=== PATIENT | male | born 1990 | race Caucasian/White ===

== ENCOUNTER → 2019-01-19 13:58 | Outpatient (CLI) | payer BC, SELFPAY ==
[2014-11-24 10:14] VITALS: BMI 32.9
[2019-01-19 17:44] LABS: ALB/GLOB Ratio 1.1 RATIO (0.9-2.4); AST(SGOT) 34 U/L (15-37); Alanine Aminotransfer ALT/SGPT 102 U/L (16-61); Alkaline Phosphatase 89 U/L (45-117); Anion Gap 8 (5-15); BUN 15 mg/dL (7-18); BUN/Creat Ratio 12.8 RATIO (10-20); Calcium,Total 9.4 mg/dL (8.5-10.1); Chloride 107 mmol/L (98-107); Cholesterol 208 mg/dL (200); Creatinine, Serum 1.17 mg/dL (0.70-1.30); EST Glomerular Filtration Rate 80 mL/min (>60); Est Glom Filt Rate - Afr Amer 97 mL/min (>60); Globulin 3.5 g/dL (2.2-4.2); Glucose 103 mg/dL (74-106); High Density Lipoprotein 44 mg/dL; Protein, Total 7.5 g/dL (6.4-8.2); Sodium Level 142 mmol/L (136-145); Triglycerides 205 mg/dL; Very Low Density Lipoprotein 41 mg/dL (5-40)
[2019-01-19 18:06] LABS: Protein, Urine (Random) 15.3 mg/dL (<11.9); Protein:Creat Ratio 63 mg/g CRE (0-200)
== END ==
PROVIDERS: Visit Provider Internal Medicine Nephrology
DX: Z90.5 Acquired absence of kidney (principal)
CPT/HCPCS: 36415; 80053; 80061; 82570; 84156

== ENCOUNTER → 2019-01-25 08:47 | Outpatient (CLI) | payer BC, SELFPAY ==
[2014-11-24 10:14] VITALS: BMI 32.9
--- NOTE | 2019-01-25 08:54 | US_ITS ---
STUDY: RENAL ULTRASOUND - COMPLETE REASON FOR EXAM: Male, 28 years old. Absent left kidney TECHNIQUE: Ultrasound evaluation of the kidneys was performed with real-time and static gamez-scale imaging. COMPARISON: None. FINDINGS: RIGHT KIDNEY: Normal location of the right kidney, which is normal in size. The right kidney measures 13.3 x 7.1 x 6.4 cm. There is a normal cortex of the right kidney. The renal cortex measures 2.2 cm. There is no right renal mass or cyst. There are no right renal calculi. There is no right hydronephrosis. DISTAL RIGHT URETER: There is non-visualization of the distal right ureter. There is no demonstrated right ureterovesical junction calculus. There is no demonstrated right ureteral jet. LEFT KIDNEY: No left kidney was identified. DISTAL LEFT URETER: There is non-visualization of the distal left ureter. There is no demonstrated left ureterovesical junction calculus. BLADDER: The distended urinary bladder has a volume of 19.5 ml. The empty urinary bladder has a volume of 0 ml. There is a normal wall thickness of the distended urinary bladder. There is no demonstrated mass within the urinary bladder. There are no demonstrated bladder calculi. US/Kidney and Bladder IMPRESSION: The right kidney appears within normal limits. No left kidney was identified. Electronically Signed: William Martinez MD at 17:02 EDT , Service support ,
== END ==
LOC: US 08:52
PROVIDERS: Referring Provider Internal Medicine Nephrology; Visit Provider Internal Medicine Nephrology
DX: Z90.5 Acquired absence of kidney (principal)
CPT/HCPCS: 76770

== ENCOUNTER 2019-07-14 18:39 | Emergency (ER) | payer OTHER, BC, SELFPAY ==
[2019-07-14 18:40] VITALS: BP 148/95; PULSE 122; RESP 17; TEMP 36.7; O2SAT 98; BMI 32.5
--- NOTE | 2019-07-14 18:42 | RAD_ITS ---
STUDY: X-RAY - RIGHT HAND REASON FOR EXAM: Male, 28 years old. Smashed Rt hand in equipment. 3-5 metacarpal pain and swelling. TECHNIQUE: 3 view(s) of the hand. COMPARISON: None. FINDINGS: No acute fracture, dislocation or osseous destruction. No significant joint space narrowing. No significant productive changes. No significant soft tissue swelling. Punctate hyperdensities under the nail of the fourth digit may represent foreign bodies. IMPRESSION: No acute fracture or dislocation. Electronically Signed: Trevon Smyth, at 19:47 EST Tel , Service support , RAD/Hand Min 3 Views
--- NOTE | 2019-07-14 20:14 | ED.DCSUM_ITS ---
- ER Visit Summary Date of Service: 07/14/19 Chief Complaint: Right hand injury History of Present Illness: The patient is a 28 M who presents with a right hand injury that occurred today. Patient states he was using a wrench to loosen a bolt when the wrench slipped and he hit his hand on a piece of metal behind him. Patient states the pain is dull. Patient states the swelling was over the dorsal aspect of his right hand and was worse initially. Patient admits to some tingling in the right fifth finger. Patient denies any weakness. Patient denies any other injuries. Physical Examination: Vital signs are stable except for mild tachycardia of 122. Patient is afebrile. Patient is in no acute distress. Oral mucosa is pink and moist. Neck is supple. Trachea is midline. There is no JVD. Musculoskeletal exam reveals tenderness, edema, and mild ecchymosis over the dorsal aspect of the right hand at the base of the fourth and fifth metacarpals. There is no bony crepitance or step-off. Range of motion was limited in all motions secondary to pain. Strength is 5/5 in the radial, median, and ulnar areas. Sensation was intact to light touch in the radial, median, and ulnar areas. Capillary refill was less than 2 seconds in all digits. Pulses are equal bilaterally. Test Results: X-rays of the right hand were obtained. There is no acute fracture. These were interpreted by the radiologist and myself. Emergency Department Course and Treatment: Patient's heart rate improved on reevaluation. Patient was instructed to ice and elevate the right hand. Patient was instructed to take Tylenol or ibuprofen as needed for pain. Patient was instructed to follow-up with his primary care physician or [facility] in 5 to 7 days. Patient understood and was agreeable with the plan. All questions were answered. Disposition: Discharge home Impression: Right hand contusion This note was generated with [employer] dictation software. It may contain incorrect words, spelling, and punctuation that were not noted in review of the chart prior to signing ED Disposition - Plan for ED Patient: Disposition: Home or Assisted Living Diagnosis: Contusion of right hand Instructions: CONTUSION, Hand Referrals: Care Physician,No Primary [Primary Care Provider[facility] - [facility] PHYSICIANS] - 5-7 Days
[2019-07-14 20:31] VITALS: PULSE 82; RESP 16; O2SAT 98
== END 2019-07-14 20:31 | disposition home or self-care (01) ==
PROVIDERS: Emergency Provider Emergency Medicine
DX: S60.221A Contusion of right hand, initial encounter (principal); W22.8XXA Striking against or struck by other objects, initial encounter; Y93.9 Activity, unspecified; Y92.9 Unspecified place or not applicable; F17.200 Nicotine dependence, unspecified, uncomplicated
CPT/HCPCS: 73130; 99282

== ENCOUNTER → 2019-08-09 09:37 | Outpatient (CLI) | payer BC, SELFPAY ==
[2019-07-19 10:43] VITALS: BMI 32.5
[2019-08-09 11:50] LABS: AST(SGOT) 23 U/L (15-37); Alanine Aminotransfer ALT/SGPT 79 U/L (16-61); Albumin, Serum 3.9 g/dL (3.2-5.0); Alkaline Phosphatase 82 U/L (45-117); Anion Gap 4 (5-15); BUN 13 mg/dL (7-18); BUN/Creat Ratio 10.8 RATIO (10-20); Calcium,Total 9.4 mg/dL (8.5-10.1); Chloride 108 mmol/L (98-107); Cholesterol 254 mg/dL (200); EST Glomerular Filtration Rate 77 mL/min (>60); Est Glom Filt Rate - Afr Amer 94 mL/min (>60); Glucose 91 mg/dL (74-106); High Density Lipoprotein 45 mg/dL; Potassium 3.8 mmol/L (3.5-5.1); Protein, Total 7.9 g/dL (6.4-8.2); Sodium Level 139 mmol/L (136-145); Triglycerides 215 mg/dL; Very Low Density Lipoprotein 43 mg/dL (5-40)
[2019-08-09 11:51] LABS: Protein, Urine (Random) 24.3 mg/dL (<11.9); Protein:Creat Ratio 67 mg/g CRE (0-200)
== END ==
PROVIDERS: Referring Provider Internal Medicine Nephrology; Visit Provider Internal Medicine Nephrology
DX: Z90.5 Acquired absence of kidney (principal); E78.5 Hyperlipidemia, unspecified
CPT/HCPCS: 36415; 80053; 80061; 82570; 84156

== ENCOUNTER → 2019-08-20 11:34 | Outpatient (CLI) | payer BC, SELFPAY ==
[2019-07-19 10:43] VITALS: BMI 32.5
[2019-08-20 13:31] LABS: Thyroid Stim Hormone (TSH) 1.85 uIU/mL (0.358-3.74)
== END ==
PROVIDERS: PCP Family Medicine Geriatric Medicine; Visit Provider Family Medicine Geriatric Medicine
DX: R53.83 Other fatigue (principal)
CPT/HCPCS: 36415; 84443

== ENCOUNTER 2023-04-06 01:13 | Emergency (ER) | payer BC, SELFPAY ==
[2023-04-06 01:14] VITALS: BP 138/72; PULSE 105; RESP 20; TEMP 36.7; O2SAT 94; BMI 33.7
[2023-04-06] MEDS: 0.9% Normal Saline (1000mL) 1,000 ML 1000 ML IV (01:32)
[2023-04-06 01:33] LABS: Absolute Lymphocyte Count 2.69 X10^3/uL (0.83-4.51); Absolute Neutrophil Count 5.5 X10^3/uL (2.0-7.7); Basophil# 0.06 X10^3/uL; Basophil% 0.6 % (0-1); Eosinophil# 0.37 X10^3/uL; Eosinophils% 3.9 % (0-5); Hematocrit 45.5 % (40-54); Hemoglobin 15.6 g/dL (13.0-16.5); Lymphocyte # 2.69 X10^3/ul (0.83-4.51); Lymphocyte % 28.7 % (19-41); Mean Corp Hgb Conc 34.3 g/dL (32-36); Mean Corpuscular Hgb 30.4 pg (27.0-32.0); Mean Corpuscular Volume 88.7 fL (80-94); Mean Platelet Vol. 9.2 fl (6.2-12.0); Monocyte# 0.74 X10^3/uL; Monocyte% 7.9 % (0-10); NRBC Flagged by Analyzer 0 % (0-5); Neutrophil % 58.7 % (47-70); Platelet Count 258 K/mm3 (150-450); RBC Distribution Width CV 12.3 % (11.6-14.6); RBC Distribution Width SD 40.2 fl (35.1-43.9); Red Blood Count 5.13 M/mm3 (4.6-6.2); White Blood Count 9.4 K/mm3 (4.4-11.0)
--- NOTE | 2023-04-06 01:46 | EDS_ITS ---
HPI HPI - GI History of Present Illness Chief Complaint: Abd Pain Narrative Narrative: 32-year-old male presenting with sharp right-sided abdominal pain/flank pain patient thinks is a gallbladder attack but he last ate at 7 PM last evening and is started hurting him at about 1230 or 1 AM in the morning. Patient states he ate pizza for dinner. Patient states he had 1 ever episode of this a few weeks ago which resolved on its own. He states the pain is now resolving but he had pain for about 40 minutes. He did not want to come to the emergency room but he was urged to come to the emergency room by his mother. No history of gallbladder disease. No history of intra-abdominal surgeries. He states he does have a history of kidney stone which was discovered previously. He states that this is how he found out he only has 1 kidney on the right. He does state that the pain radiates to the back. He does get nausea with these episodes. He states he does get sweaty. He denies dysuria or hematuria. PFSH PFS Medical History Renal agenesis, unilateral Home Medications NK 07/14/19 [History Last Taken Unknown] Allergy/AdvReac Type Severity Reaction Status Date / Time No Known Allergies Allergy Verified 04/06/23 01:15 Social History Smoking Status: Current every day smoker tobacco type: cigarettes and e- cigarettes alcohol intake: current ROS ROS ED Constitutional Constitutional ED: Reports sweats; Denies chills or fever(s) Eyes Eyes: Denies blurry vision or change in vision ENT ENT ED: Denies ear pain or sore throat Cardiovascular Cardiovascular: Denies chest pain, palpitations or racing heartbeat Respiratory/Chest Respiratory/Chest: Denies cough, dyspnea or sputum Gastrointestinal Gastrointestinal: Reports abdominal pain and nausea; Denies constipation, diarrhea or vomiting Genitourinary Genitourinary ED: Denies dysuria, hematuria or urinary frequency Musculoskeletal Musculoskeletal: Denies arthralgias, myalgias or neck pain Integumentary Denies abscess, Abrasions or rash Neurologic Neurologic: Denies headache(s), paresthesias or weakness Psychiatric Psychiatric: Denies anxiety, depression, suicidal ideation or suicidal thoughts Endocrine Endocrinology: Denies polydipsia or polyuria EXAM Physical Exam Const Vital Signs: 04/06/23 01:14 04/06/23 04:16 Temperature 98.1 F Temperature Source Oral Pulse Rate 105 H 82 Respiratory Rate 20 H 15 Blood Pressure 138/72 H 117/72 Blood Pressure Mean 94 87 Pulse Ox 94 97 Oxygen Delivery Method Room Air Room Air Positive well nourished General Appearance ED: NAD HEENT Reports moist mucous membranes normocephalic Eyes PERRL and EOMs intact bilaterally Neck no lymphadenopathy Resp normal respiratory effort and clear to auscultation bilaterally Auscultation: Negative for rales, rhonchi or wheezes Cardio regular rate and regular rhythm GI Palpation: tender RLQ Back/Spine General Back: CVA tenderness right Neuro CN's II-XII intact bilaterally and moves all extremities Sensorium / Orientation: alert Motor Exam: strength 5/5 throughout Psych mental status grossly normal Skin no wounds MDM MDM MDM Narrative Medical decision making narrative: 32-year-old male presenting with right-sided abdominal pain. He is concerned to gallbladder pack. Differential includes, cholecystitis, pancreatitis, gastritis, kidney stone, UTI, pyelonephritis, colitis, dehydration, electrolyte abnormalities. Patient states his pain is now improved and declines any analgesia or antiemetic. CBC will be obtained to assess white blood cell count, hemoglobin, platelets. CMP to assess liver function, renal function, electroly patricia, glucose. Lipase to assess for pancreatitis. Urinalysis to assess for occult blood or UTI. CBC showed no leukocytosis. Hemoglobin stable at 15.6. Platelets are normal at 258. LT mildly elevated at 140 this has previously been 102 and 79. AST is elevated at 42 and previously this was normal. LFTs otherwise unremarkable. Lipase normal at 55. Urinalysis negative for infection. CT of the abdomen pelvis with IV contrast was obtained and shows some mild pericholecystic edema. Right upper quadrant ultrasound was ordered and there was a delay in having this read. I called the radiology department at 0700 hrs. and I was told they have until 716 to interpret the right upper quadrant ultrasound. At 720 the patient stated that he wanted to go home and that he had to relieve his director voice. I counseled him that I do not have the read for the right upper quadrant ultrasound however he states that he wants to go. He has been pain-free all night. He did get paperwork instructing him to follow-up with Dr. Bearden for follow-up care. The patient eventually left without the read of the right upper quadrant ultrasound. He does have instructions to be able to sign up for his account so he can see his results. Right upper quadrant ultrasound came back as negative. Impression: 1. Abdominal pain Lab Data Attestation: I reviewed the patient's lab results. Labs: Laboratory Results - last 24 hr 04/06/23 04/06/23 01:30 02:56 WBC 9.4 RBC 5.13 Hgb 15.6 Hct 45.5 MCV 88.7 MCH 30.4 MCHC 34.3 RDW Std Deviation 40.2 RDW Coeff of [place] 12.3 Plt Count 258 MPV 9.2 Immature Gran % (Auto) 0.200 Neut % (Auto) 58.7 Lymph % (Auto) 28.7 [place] % (Auto) 7.9 Eos % (Auto) 3.9 Baso % (Auto) 0.6 Absolute Neuts (auto) 5.5 Absolute Lymphs (auto) 2.69 Nucleated RBC % 0 Sodium 138 Potassium 3.6 Chloride 109 H Carbon Dioxide 25.0 Anion Gap 4 L BUN 14 Creatinine 1.19 Estim Creat Clear Calc 99.63 Est GFR (MDRD) Af Amer 92 Est GFR (MDRD) Non-Af 76 BUN/Creatinine Ratio 11.8 Glucose 133 H Calcium 9.2 Total Bilirubin 0.40 AST 42 H ALT 140 H Alkaline Phosphatase 110 Total Protein 7.4 Albumin 3.7 Globulin 3.7 Albumin/Globulin Ratio 1.0 Lipase 55 Urine Color Yellow Urine Clarity Clear Urine pH 5.0 Ur Specific [place] 1.020 Urine Protein 30 H Urine Glucose (UA) Normal Urine Ketones Negative Urine Occult Blood Negative Urine Nitrite Negative Urine Bilirubin Negative Urine Urobilinogen Normal Ur Leukocyte Esterase 25 H Urine RBC 0 SEEN Urine WBC 0-5 SEEN Ur Squamous Epith Cells 0 SEEN Urine Bacteria 0 SEEN Urine Mucus 0 SEEN Radiography Diagnostic Testing: Clinical Impression(s) from Imaging Studies Abdomen/Pelvis CT 04/06/23 01:52 IMPRESSION: 1. Suggestion of mild pericholecystic edema. Correlate clinically and suggest further evaluation with gallbladder ultrasound. 2. Nonfunctioning congenital left renal remnant. 3. Hepatic steatosis and hepatomegaly. Electronically Signed: Jameel Montes MD at 3:55 EDT , Discharge Plan Triage Chief Complaint: Abd Pain ED Provider: Ayden Timmons Dx/Rx/DC Orders Instructions: ED Abdominal Pain Gallstone Poss Prescriptions: No Action NK Primary Care Provider: Care Physician,No Primary Referrals: Sumeet Bearden MD [Med Staff - Active Staff] - 3-5 Days Jason Wood Chi, MD [Med Staff - Active Staff] - Disposition Disposition: Home, Self Care Discharge Date/Time: 04/06/23 07:39
[2023-04-06 01:48] LABS: AST(SGOT) 42 U/L (15-37); Alanine Aminotransfer ALT/SGPT 140 U/L (16-61); Albumin, Serum 3.7 g/dL (3.2-5.0); Alkaline Phosphatase 110 U/L (45-117); Anion Gap 4 (5-15); BUN 14 mg/dL (7-18); BUN/Creat Ratio 11.8 RATIO (10-20); Calcium,Total 9.2 mg/dL (8.5-10.1); Chloride 109 mmol/L (98-107); Creatinine, Serum 1.19 mg/dL (0.70-1.30); EST Glomerular Filtration Rate 76 mL/min (>60); Est Glom Filt Rate - Afr Amer 92 mL/min (>60); Estimated Creatinine Clearance 99.63 ml/min; Globulin 3.7 g/dL (2.2-4.2); Glucose 133 mg/dL (74-106); Lipase 55 U/L (13-75); Potassium 3.6 mmol/L (3.5-5.1); Protein, Total 7.4 g/dL (6.4-8.2); Sodium Level 138 mmol/L (136-145)
--- NOTE | 2023-04-06 01:52 | CT_ITS ---
INDICATION: abdominal pain EXAMINATION: CT Abdomen And Pelvis W/ Contrast Injection TECHNIQUE: Helically acquired images were obtained of the abdomen and pelvis following IV contrast. 2-D reconstructions reviewed. A radiation dose optimization technique was used for this scan. IV Contrast dosage and agent: 100 cc [id number] Oral contrast: None. COMPARISON: None. FINDINGS: LOWER CHEST: Mild dependent atelectatic changes. Mild left basilar linear scarring. Slightly elevated right hemidiaphragm. Heart size within normal limits. LIVER: Fatty and enlarged liver measures 21.5 cm AP diameter. No concerning lesion. GALLBLADDER AND BILIARY TREE: Suggestion of mild pericholecystic edema. No radiopaque gallstones identified. No significant biliary ductal dilation. PANCREAS: No discrete mass or peripancreatic edema. SPLEEN: Normal size without concerning lesion. ADRENAL GLANDS: Unremarkable. KIDNEYS AND URETERS: Minimal soft tissue at left renal fossa compatible with aplastic renal remnant, with present left ureter. Right kidney normal size. No perinephric edema or hydronephrosis. No concerning lesion. PERITONEUM: No significant free fluid. No peritoneal free air detected. RETROPERITONEUM: No retroperitoneal mass or pathologic fluid collection. BOWEL: Normal appendix inferior to cecum within right lower quadrant. No bowel obstruction or significant bowel thickening. No focal inflammatory change. LYMPH NODES: No enlarged mesenteric or retroperitoneal lymph nodes. VESSELS: No acute findings. No abdominal aortic aneurysm. URINARY BLADDER: Unremarkable as visualized. REPRODUCTIVE ORGANS: No pelvic masses. ABDOMINAL WALL: No acute findings or significant hernia defect. BONES: Intact with no suspicious osseous lesion. CT/Abdomen/Pelvis W IV Cont ONLY IMPRESSION: 1. Suggestion of mild pericholecystic edema. Correlate clinically and suggest further evaluation with gallbladder ultrasound. 2. Nonfunctioning congenital left renal remnant. 3. Hepatic steatosis and hepatomegaly. Electronically Signed: Jameel Montes MD at 3:55 EDT ,
[2023-04-06 03:02] LABS: Bacteria 0 SEEN /hpf (None Seen); Mucous, Urine 0 SEEN /hpf (<or=2+); Red Blood Cells-Urine 0 SEEN /hpf (0-5); Squamous Epithelial Cells - UA 0 SEEN /hpf (0-5)
[2023-04-06 03:04] LABS: Color, Urine Yellow (Yellow); Glucose, Dipstick Normal (Normal); Ketone-Dipstick Negative (Negative); Leukocyte Esterase-Dipstick 25 /ul (Negative); Nitrite-Dipstick Negative (Negative); Occult Blood-Urine Negative /ul (Negative); Protein-Dipstick 30 mg/dl (Negative); Urine Bilirubin Dipstick Negative (Negative); Urine Clarity Clear (Clear); Urine Urobilinogen Normal (Normal)
[2023-04-06 03:15] LABS: White Blood Cells 0-5 SEEN /hpf (0-5)
--- NOTE | 2023-04-06 03:57 | US_ITS ---
INDICATION: ruq pain -- F/U CT EXAMINATION: US Abdomen RUQ (limited) TECHNIQUE: Foster scale and color doppler imaging was performed of the right upper quadrant. COMPARISON: CT abdomen and pelvis from approximately 3 hours prior FINDINGS: LIVER: There is moderate increased echogenicity. No focal hepatic lesion. No significant intrahepatic biliary ductal dilatation. The right lobe of liver is enlarged and measures 19 cm in length. GALLBLADDER AND BILIARY TREE: No shadowing gallstones demonstrated. No significant gallbladder wall thickening or pericholecystic fluid demonstrated. The proximal common bile duct measures 5 mm. Sonographic Stephens''s sign: Negative. PANCREAS: Unremarkable as visualized. RIGHT KIDNEY: Right kidney measures 13.2 cm in length. No hydronephrosis. No discrete right renal lesion demonstrated. VESSELS: Unremarkable as visualized. US/Gallbladder IMPRESSION: 1. Hepatic steatosis and hepatomegaly 2. Unremarkable gallbladder Electronically Signed: Jameel Montes MD at 7:47 EDT ,
[2023-04-06] MEDS: 0.9% Normal Saline (1000mL) 1,000 ML 999 ML IV (04:15)
[2023-04-06 04:16] VITALS: BP 117/72; PULSE 82; RESP 15; O2SAT 97
--- NOTE | 2023-04-06 07:35 | ED.RN ---
pt states that he has no more childcare and he has to leave. this rn lets pt know that unfortunately we were still waiting on results of gallbladder ultrasound. pt understood but still was needing to be discharged. dr. marti updated.
== END 2023-04-06 07:39 | disposition home or self-care (01) ==
PROVIDERS: Emergency Provider Student in an Organized Health Care Education/Training Program; Visit Provider Student in an Organized Health Care Education/Training Program
DX: R10.9 Unspecified abdominal pain (principal); F17.210 Nicotine dependence, cigarettes, uncomplicated; F17.290 Nicotine dependence, other tobacco product, uncomplicated
CPT/HCPCS: 74177; 76705; 80053; 81001; 83690; 85025; 99283; J7030; Q9967; A4216

== ENCOUNTER 2023-10-15 18:28 | Emergency (ER) | payer BC, SELFPAY ==
[2023-10-15 18:29] VITALS: BP 144/120; PULSE 123; RESP 20; TEMP 35.9; O2SAT 98; BMI 33.7
--- NOTE | 2023-10-15 19:26 | US_ITS ---
EXAM: US ABDOMEN LIMITED, RIGHT UPPER QUADRANT CLINICAL INDICATION: PAIN TECHNIQUE: Real-time ultrasound of the right upper quadrant with image documentation. COMPARISON: 04/06/2023 FINDINGS: LIVER: Diffuse increased echogenicity throughout the liver without focal hepatic abnormality likely secondary to fatty infiltration. No intrahepatic biliary ductal dilation. GALLBLADDER: No significant abnormality. No shadowing gallstone. No gallbladder wall thickening is demonstrated. No pericholecystic fluid. Negative sonographic Stephens''s sign. COMMON BILE DUCT: Normal as visualized. The proximal common bile duct is within normal limits for the patient''s age. PANCREAS: Echogenic partially visualized pancreas is nonspecific. Most of the pancreas is obscured. RIGHT KIDNEY: No significant abnormality. There is no hydronephrosis. No shadowing calculus. No focal lesion or perinephric collection is demonstrated. US/Gallbladder IMPRESSION: 1. Echogenic partially visualized pancreas is nonspecific. Most of the pancreas is obscured. 2. Diffuse increased echogenicity throughout the liver without focal hepatic abnormality likely secondary to fatty infiltration. 3. No evidence of cholelithiasis or cholecystitis. Electronically Signed: Messi Sandhu DO at 20:28 EDT ,
--- NOTE | 2023-10-15 19:27 | EDS_ITS ---
HPI HPI - GI History of Present Illness Chief Complaint: Abd Pain Detail of Chief Complaint: Abdominal pain Informant: patient Abdominal Pain/Flank Pain Current Severity: 03/09 Narrative Narrative: Patient presents with abdominal pain that started at approximately 230 today. Patient describes 1 episode of vomiting and 1 episode of diarrhea. States he tried to eat something and that made it significantly worse. Pains in the right upper quadrant. He had similar pain in the past x 3. He did present to the emergency department a few months ago for the same but left before treatment was completed. Patient states it took too long. He denies urinary symptoms. No prior abdominal surgeries. [facility] Medical History Renal agenesis, unilateral Home Medications NK 07/14/19 [History Last Taken Unknown] lansoprazole 30 mg capsule,delayed release (Prevacid) 30 mg PO QHS 4 weeks #14 caps 10/15/23 [Rx Last Taken Unknown] Allergy/AdvReac Type Severity Reaction Status Date / Time No Known Allergies Allergy Verified 10/15/23 18:28 Social History Smoking Status: Current every day smoker tobacco type: cigarettes and e- cigarettes alcohol intake: current ROS ROS ED Review of Systems ROS Unobtainable: other Constitutional Constitutional ED: Reports lethargy; Denies chills, fever(s), sweats or weight loss Eyes Eyes: Denies blurry vision, change in vision or diplopia ENT ENT ED: Denies rhinorrhea or sore throat Cardiovascular Cardiovascular: Denies chest pain, orthopnea or racing heartbeat Respiratory/Chest Respiratory/Chest: Denies cough, dyspnea, dyspnea on exertion, orthopnea or sputum Gastrointestinal Gastrointestinal: Reports abdominal pain, diarrhea, nausea and vomiting Genitourinary Genitourinary ED: Denies dysuria, hematuria or urinary frequency Musculoskeletal Musculoskeletal: Denies arthralgias, back pain, myalgias or neck pain Integumentary Denies abscess, Abrasions or rash Neurologic Neurologic: Denies headache(s) or weakness Psychiatric Psychiatric: Denies anxiety, depression or suicidal thoughts Endocrine Endocrinology: Denies polydipsia, polyphagia or polyuria Hematologic/Lymphatic Hematologic/Lymphatic: Denies easy bleeding, easy bruising or lymphadenopathy Allergic/Immunologic Allergic/Immunologic ED: Denies mouth swelling, tongue swelling or urticaria EXAM Physical Exam Const Vital Signs: 10/15/23 18:29 10/15/23 20:12 Temperature 96.7 F L Temperature Source Temporal Pulse Rate 123 H 97 Respiratory Rate 20 H 16 Blood Pressure 144/120 H 128/91 H Blood Pressure Mean 128 103 Pulse Ox 98 95 Oxygen Delivery Method Room Air Room Air Positive well nourished and well developed General Appearance ED: well developed and NAD HEENT Reports TM's clear and moist mucous membranes normocephalic and atraumatic; Negative for trauma or tenderness Tympanic Membrane ED: Yes TM's clear Eyes PERRL and EOMs intact bilaterally General Eye ED: Negative for pale conjunctiva or scleral icterus Neck no lymphadenopathy, supple and no JVD General: Negative for tenderness Chest Wall inspection of chest normal and palpation of chest normal Chest: Negative for tenderness Resp normal respiratory effort and clear to auscultation bilaterally Effort and Inspection: Negative for respiratory distress or pain with movement Auscultation: Negative for rhonchi, wheezes or diminished lung sounds Cardio regular rate, regular rhythm, S1 normal heart sound, S2 normal heart sound and no murmurs Peripheral Pulses: pulses 2+ throughout GI normal to inspection, nondistended, normoactive bowel sounds, soft to palpation, non-distended and no masses GI Narrative: Tenderness palpation of the right upper quadrant with guarding. Positive Stephens sign. No rebound, rigidity, or peritoneal signs. Back/Spine no CVA tenderness and no thoracic nor lumbar tenderness Extremity normal to inspection General Extremety ED: Negative for edema General Extremity: Negative for edema Neuro oriented x3, CN's II-XII intact bilaterally, no sensory deficits noted and gait normal Sensorium / Orientation: awake, alert, oriented to person, oriented to place and oriented to time Motor Exam: strength 5/5 throughout and strength abnormal Psych mental status grossly normal Skin no rashes or lesions noted and no wounds MDM MDM MDM Narrative Medical decision making narrative: Patient presents with abdominal pain in the upper abdomen that started around 230 today. He has had now the third bout this year similarly. Normally the pain starts at night. This the first time he had it during the day. Patient did vomit once and had 1 loose stool. Pain in the right upper quadrant and in the differential would be gallbladder disease versus peptic ulcer disease versus pancreatitis or other abnormality such as inflammatory bowel disease or bowel obstruction or inflammatory bowel disease. IV line established. CBC with differential obtained showed white count 11.2 with hemoglobin 16.5 and platelet count of 276. Chemistries unremarkable. BUN was 16 and creatinine 1.45. AST was 76 and ALT was 202 alkaline phosphatase was 118. Lipase normal at 54. Urinalysis was normal. Initially obtain a gallbladder ultrasound which was essentially unremarkable no evidence of gallbladder disease. 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 Otherwise no acute pathology noted. Discussed results with patient. He did receive fentanyl 25 mcg initially on arrival and Zofran 4 mg IV and his pain essentially resolved he is currently pain-free. This point etiology of his pain unclear. In the differential also would be gastritis or development of peptic ulcer disease. I will start him on Prevacid and refer to GI for follow-up. Advised return if worsening pain, fever, vomiting, or condition should worsen anyway. Lab Data Attestation: I reviewed the patient's lab results. Labs: Laboratory Results - last 24 hr 10/15/23 19:40 WBC 11.2 H RBC 5.46 Hgb 16.5 Hct 48.0 MCV 87.9 MCH 30.2 MCHC 34.4 RDW Std Deviation 39.7 RDW Coeff of Aziza 12.4 Plt Count 276 MPV 9.4 Immature Gran % (Auto) 0.200 Neut % (Auto) 67.6 Lymph % (Auto) 20.1 Glascock % (Auto) 7.7 Eos % (Auto) 3.7 Baso % (Auto) 0.7 Absolute Neuts (auto) 7.6 Absolute Lymphs (auto) 2.25 Nucleated RBC % 0 Sodium 139 Potassium 4.0 Chloride 107 Carbon Dioxide 25.0 Anion Gap 7 BUN 16 Creatinine 1.45 H Estim Creat Clear Calc 96.66 Est GFR (MDRD) Af Amer 73 Est GFR (MDRD) Non-Af 60 BUN/Creatinine Ratio 11.0 Glucose 119 H Lactic Acid 0.9 Calcium 9.4 Total Bilirubin 0.40 AST 76 H ALT 202 H Alkaline Phosphatase 118 H Total Protein 8.2 Albumin 4.0 Globulin 4.2 Albumin/Globulin Ratio 1.0 Lipase 54 Urine Color Yellow Urine Clarity Clear Urine pH 7.0 Ur Specific [place] 1.015 Urine Protein 15 H Urine Glucose (UA) Normal Urine Ketones 5 H Urine Occult Blood Negative Urine Nitrite Negative Urine Bilirubin Negative Urine Urobilinogen 1 H Ur Leukocyte Esterase 25 H Urine RBC 0 SEEN Urine WBC 0-5 SEEN Ur Squamous Epith Cells 0 SEEN Urine Bacteria 1+ Urine Mucus 0 SEEN Radiography Diagnostic Testing: Clinical Impression(s) from Imaging Studies Gallbladder Ultrasound 10/15/23 19:26 IMPRESSION: 1. Echogenic partially visualized pancreas is nonspecific. Most of the pancreas is obscured. 2. Diffuse increased echogenicity throughout the liver without focal hepatic abnormality likely secondary to fatty infiltration. 3. No evidence of cholelithiasis or cholecystitis. Electronically Signed: Messi Sandhu DO at 20:28 EDT , Abdomen/Pelvis CT 10/15/23 20:46 IMPRESSION: 1. Fatty liver. 2. 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 The right kidney appears normal. 3. No acute pathology is otherwise identified. Electronically Signed: Messi Sandhu DO at 21:11 EDT , Discharge Plan Triage Chief Complaint: Abd Pain ED Provider: Neetu Espinoza Dx/Rx/DC Orders Clinical Impression: Abdominal pain Instructions: ED Abdominal Pain Unkn Cause Male... Prescriptions: New lansoprazole [Prevacid] 30 mg capsule,delayed release(DR/EC) 30 mg PO QHS 28 Days Qty: 14 0RF No Action NK Primary Care Provider: Care Physician,No Primary Referrals: Rodrigo García DO [Med Staff - Active Staff] - 5-7 Days Care Physician,No Primary [Primary Care Provider] - Disposition Disposition: Home, Self Care
[2023-10-15 19:45] LABS: Mucous, Urine 0 SEEN /hpf (<or=2+); Red Blood Cells-Urine 0 SEEN /hpf (0-5); Squamous Epithelial Cells - UA 0 SEEN /hpf (0-5)
[2023-10-15 19:48] LABS: Absolute Lymphocyte Count 2.25 X10^3/uL (0.83-4.51); Absolute Neutrophil Count 7.6 X10^3/uL (2.0-7.7); Basophil# 0.08 X10^3/uL; Basophil% 0.7 % (0-1); Eosinophil# 0.41 X10^3/uL; Eosinophils% 3.7 % (0-5); Hemoglobin 16.5 g/dL (13.0-16.5); Lymphocyte # 2.25 X10^3/ul (0.83-4.51); Lymphocyte % 20.1 % (19-41); Mean Corp Hgb Conc 34.4 g/dL (32-36); Mean Corpuscular Hgb 30.2 pg (27.0-32.0); Mean Corpuscular Volume 87.9 fL (80-94); Mean Platelet Vol. 9.4 fl (6.2-12.0); Monocyte# 0.86 X10^3/uL; Monocyte% 7.7 % (0-10); NRBC Flagged by Analyzer 0 % (0-5); Neutrophil # 7.59 X10^3/uL (2.7-7.7); Neutrophil % 67.6 % (47-70); Platelet Count 276 K/mm3 (150-450); RBC Distribution Width CV 12.4 % (11.6-14.6); RBC Distribution Width SD 39.7 fl (35.1-43.9); Red Blood Count 5.46 M/mm3 (4.6-6.2); White Blood Count 11.2 K/mm3 (4.4-11.0)
[2023-10-15 19:54] LABS: Color, Urine Yellow (Yellow); Glucose, Dipstick Normal (Normal); Ketone-Dipstick 5 mg/dl (Negative); Leukocyte Esterase-Dipstick 25 /ul (Negative); Nitrite-Dipstick Negative (Negative); Occult Blood-Urine Negative /ul (Negative); Protein-Dipstick 15 mg/dl (Negative); Specific Gravity, Urine 1.015 (1.002-1.030); Urine Bilirubin Dipstick Negative (Negative); Urine Clarity Clear (Clear); Urine Urobilinogen 1 mg/dl (Normal)
[2023-10-15 20:02] LABS: White Blood Cells 0-5 SEEN /hpf (0-5)
[2023-10-15 20:03] LABS: Bacteria 1+ /hpf (None Seen)
[2023-10-15] MEDS: 0.9% Normal Saline (1000mL) 1,000 ML 125 ML IV (20:03)
[2023-10-15] MEDS: Ondansetron 4 MG/2 ML Vial IV (20:04)
[2023-10-15] MEDS: fentaNYL 100 MCG/2 ML Ampul 25 MCG IV (20:04)
[2023-10-15 20:12] VITALS: BP 128/91; PULSE 97; RESP 16; O2SAT 95
[2023-10-15 20:24] LABS: Lactic Acid 0.9 mmol/L (0.4-1.9)
[2023-10-15 20:30] LABS: AST(SGOT) 76 U/L (15-37); Alanine Aminotransfer ALT/SGPT 202 U/L (16-61); Alkaline Phosphatase 118 U/L (45-117); Anion Gap 7 (5-15); BUN 16 mg/dL (7-18); Calcium,Total 9.4 mg/dL (8.5-10.1); Chloride 107 mmol/L (98-107); Creatinine, Serum 1.45 mg/dL (0.70-1.30); EST Glomerular Filtration Rate 60 mL/min (>60); Est Glom Filt Rate - Afr Amer 73 mL/min (>60); Estimated Creatinine Clearance 96.66 ml/min; Globulin 4.2 g/dL (2.2-4.2); Glucose 119 mg/dL (74-106); Lipase 54 U/L (13-75); Protein, Total 8.2 g/dL (6.4-8.2); Sodium Level 139 mmol/L (136-145)
--- NOTE | 2023-10-15 20:46 | CT_ITS ---
EXAM: CT ABDOMEN AND PELVIS WITH INTRAVENOUS CONTRAST CLINICAL INDICATION: abdominal pain TECHNIQUE: Helically acquired images were obtained of the abdomen and pelvis with intravenous contrast. This CT exam was performed using one or more of the following dose reduction techniques: automated exposure control, adjustment of the mA and/or kV according to patient size, and/or use of iterative reconstruction technique. CONTRAST: IV 75mL [id number] COMPARISON: CT abdomen and pelvis, 04/06/2023 FINDINGS: LOWER THORAX: Minimal dependent atelectasis rather than pneumonia. No cardiomegaly. No significant pericardial effusion. ABDOMEN: LIVER: Low-attenuation throughout the liver without focal hepatic abnormality suggesting fatty infiltration. GALLBLADDER AND BILE DUCTS: No significant abnormality. No calcified gallstones. No gallbladder distention or wall edema. No intra- or extrahepatic biliary ductal dilation. PANCREAS: No significant abnormality. No focal cystic or solid mass. SPLEEN: No significant abnormality. Normal size without focal cystic or solid mass. ADRENALS: No significant abnormality. No nodules. 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 The right kidney appears normal. Normal renal size and position. No hydronephrosis. STOMACH AND BOWEL: No significant abnormality. No stomach or bowel distention. No focal inflammatory change. PELVIS: APPENDIX: There is a normal appendix in the right lower quadrant. BLADDER: No significant abnormality. REPRODUCTIVE: Normal as visualized. No mass. ABDOMEN and PELVIS: INTRAPERITONEAL SPACE: No significant abnormality. No ascites or other fluid collection. No free air. BONES/JOINTS: No significant abnormality. No suspicious lytic or blastic abnormality. SOFT TISSUES: Small fat-containing umbilical hernia. VASCULATURE: No significant abnormality. Abdominal aorta is non-dilated. LYMPH NODES: No significant abnormality. No enlarged lymph nodes. CT/Abdomen/Pelvis W IV Cont ONLY IMPRESSION: 1. Fatty liver. 2. 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 The right kidney appears normal. 3. No acute pathology is otherwise identified. Electronically Signed: Messi Sandhu DO at 21:11 EDT ,
[2023-10-15 21:58] VITALS: BP 119/50; PULSE 69; RESP 18; TEMP 36.7; O2SAT 99
== END 2023-10-15 21:58 | disposition home or self-care (01) ==
PROVIDERS: Emergency Provider Emergency Medicine; Visit Provider Emergency Medicine
DX: R10.9 Unspecified abdominal pain (principal); R19.7 Diarrhea, unspecified; F17.210 Nicotine dependence, cigarettes, uncomplicated; K76.0 Fatty (change of) liver, not elsewhere classified; R11.10 Vomiting, unspecified; F17.290 Nicotine dependence, other tobacco product, uncomplicated
CPT/HCPCS: 74177; 76705; 80053; 81001; 83605; 83690; 85025; 99282; J7030; Q9967; A4216; J2405

== ENCOUNTER → 2024-01-06 | Outpatient (CLI) | payer BC, SELFPAY ==
[2024-01-06 15:58] LABS: Absolute Lymphocyte Count 1.78 X10^3/uL (0.83-4.51); Absolute Neutrophil Count 4.5 X10^3/uL (2.0-7.7); Basophil# 0.05 X10^3/uL; Basophil% 0.7 % (0-1); Eosinophil# 0.28 X10^3/uL; Eosinophils% 3.9 % (0-5); Hematocrit 49.9 % (40-54); Hemoglobin 16.9 g/dL (13.0-16.5); Lymphocyte # 1.78 X10^3/ul (0.83-4.51); Lymphocyte % 24.9 % (19-41); Mean Corp Hgb Conc 33.9 g/dL (32-36); Mean Corpuscular Hgb 30.1 pg (27.0-32.0); Mean Corpuscular Volume 88.8 fL (80-94); Mean Platelet Vol. 9.9 fl (6.2-12.0); Monocyte# 0.53 X10^3/uL; Monocyte% 7.4 % (0-10); NRBC Flagged by Analyzer 0 % (0-5); Platelet Count 289 K/mm3 (150-450); RBC Distribution Width CV 12.4 % (11.6-14.6); RBC Distribution Width SD 40.3 fl (35.1-43.9); Red Blood Count 5.62 M/mm3 (4.6-6.2); White Blood Count 7.2 K/mm3 (4.4-11.0)
[2024-01-06 16:13] LABS: ALB/GLOB Ratio 0.9 RATIO (0.9-2.4); AST(SGOT) 76 U/L (15-37); Alanine Aminotransfer ALT/SGPT 176 U/L (16-61); Alkaline Phosphatase 134 U/L (45-117); Anion Gap 7 (5-15); BUN 15 mg/dL (7-18); BUN/Creat Ratio 11.5 RATIO (10-20); Calcium,Total 10.3 mg/dL (8.5-10.1); Chloride 106 mmol/L (98-107); Cholesterol 245 mg/dL (200); EST Glomerular Filtration Rate 68 mL/min (>60); Est Glom Filt Rate - Afr Amer 83 mL/min (>60); Globulin 4.4 g/dL (2.2-4.2); Glucose 116 mg/dL (74-106); High Density Lipoprotein 44 mg/dL; Lipase 41 U/L (13-75); Potassium 3.9 mmol/L (3.5-5.1); Protein, Total 8.4 g/dL (6.4-8.2); Sodium Level 138 mmol/L (136-145); Triglycerides 193 mg/dL; Very Low Density Lipoprotein 39 mg/dL (5-40)
[2024-01-06 17:19] LABS: Hemoglobin A1c 5.5 % (3.8-5.6)
== END | disposition home or self-care (01) ==
LOC: BIMLAB 11:41
PROVIDERS: Nurse Practitioner; PCP Family Medicine; Referring Provider Family Medicine; Visit Provider Family Medicine
DX: K76.0 Fatty (change of) liver, not elsewhere classified (principal); K92.1 Melena; R10.9 Unspecified abdominal pain
CPT/HCPCS: 36415; 80053; 80061; 83036; 83690; 85025

== ENCOUNTER → 2024-01-30 | Outpatient (CLI) | payer BC, SELFPAY ==
[2024-01-30 11:20] LABS: Erythrocyte Sedimentation Rate 13 mm/hr (0-20)
[2024-01-30 11:22] LABS: Absolute Lymphocyte Count 1.64 X10^3/uL (0.83-4.51); Absolute Neutrophil Count 4.6 X10^3/uL (2.0-7.7); Basophil# 0.06 X10^3/uL; Basophil% 0.8 % (0-1); Eosinophils% 5.5 % (0-5); Hematocrit 48.4 % (40-54); Hemoglobin 16.6 g/dL (13.0-16.5); Lymphocyte # 1.64 X10^3/ul (0.83-4.51); Lymphocyte % 22.7 % (19-41); Mean Corp Hgb Conc 34.3 g/dL (32-36); Mean Corpuscular Hgb 30.2 pg (27.0-32.0); Mean Platelet Vol. 9.4 fl (6.2-12.0); Monocyte# 0.53 X10^3/uL; Monocyte% 7.3 % (0-10); NRBC Flagged by Analyzer 0 % (0-5); Neutrophil # 4.59 X10^3/uL (2.7-7.7); Neutrophil % 63.4 % (47-70); Platelet Count 255 K/mm3 (150-450); RBC Distribution Width CV 12.1 % (11.6-14.6); RBC Distribution Width SD 39.3 fl (35.1-43.9); White Blood Count 7.2 K/mm3 (4.4-11.0)
[2024-01-30 11:24] LABS: International Normalized Ratio 0.9; Prothrombin Time (Protime)PT. 12.6 SECONDS (11.7-14.9)
[2024-01-30 11:43] LABS: ALB/GLOB Ratio 0.8 RATIO (0.9-2.4); AST(SGOT) 64 U/L (15-37); Alanine Aminotransfer ALT/SGPT 158 U/L (16-61); Albumin, Serum 3.6 g/dL (3.2-5.0); Alkaline Phosphatase 137 U/L (45-117); Anion Gap 5 (5-15); BUN 18 mg/dL (7-18); BUN/Creat Ratio 16.7 RATIO (10-20); Calcium,Total 9.1 mg/dL (8.5-10.1); Chloride 111 mmol/L (98-107); Creatinine, Serum 1.08 mg/dL (0.70-1.30); EST Glomerular Filtration Rate 85 mL/min (>60); Est Glom Filt Rate - Afr Amer 102 mL/min (>60); Ferritin 409 ng/mL (26-388); Globulin 4.3 g/dL (2.2-4.2); Glucose 106 mg/dL (74-106); Iron Binding Capacity,Total 278 ug/dL (250-450); Potassium 4.1 mmol/L (3.5-5.1); Protein, Total 7.9 g/dL (6.4-8.2); Sodium Level 139 mmol/L (136-145)
[2024-01-31 15:08] LABS: Anti-Mitochondrial AB <20.0 Units (0.0-20.0)
[2024-02-04 08:13] LABS: AFP, Tumor Marker 2.1 ng/mL (0.0-6.9); Ceruloplasmin 28.2 mg/dL (16.0-31.0); Copper, Serum or Plasma 102 ug/dL (69-132); Cytoplasmic Ab (C-ANCA) <1:20 titer (Neg:<1:20); Endomysial Antibody IgA Negative (Negative); HEPATITIS B SURFACE AG Negative (Negative); Haptoglobin 151 mg/dL (17-317); Hep C Antibodies Non Reactive (Non Reactive); Hepatitis A IgM Antibody Negative (Negative); Hepatitis B Core AB IgM Negative (Negative); Immunoglobulin A 512 mg/dL (90-386); Perinuclear Ab (P-ANCA) <1:20 titer (Neg:<1:20); t-Transglutaminase IgA <2 U/mL (0-3)
== END | disposition home or self-care (01) ==
PROVIDERS: PCP Family Medicine; Referring Provider Student in an Organized Health Care Education/Training Program; Visit Provider Student in an Organized Health Care Education/Training Program
DX: R79.89 Other specified abnormal findings of blood chemistry (principal); R11.0 Nausea
CPT/HCPCS: 36415; 80053; 80074; 82105; 82390; 82525; 82533; 82728; 82784; 83010; 83516; 83550; 84443; 85025; 85610; 85652; 86140; 86255; 86256

== ENCOUNTER 2024-02-03 12:47 | Day surgery (SDC) | payer BC, SELFPAY ==
[2024-02-03] VITALS (7 sets, daily range): BP systolic 105–117; BP diastolic 69–78; PULSE 55–89; RESP 16; TEMP 36.1–36.6; O2SAT 96–98; BMI 33.0
[2024-02-03] MEDS: Lactated Ringers 1,000 ML 15 ML IV (13:25)
--- NOTE | 2024-02-03 13:38 | PRE.ANES_ITS ---
ASA Classification* ASA Classification ASA Classification: 2 Assessment & Plan Anesthesia* Anesthesia Assessment Anesthesia Assessment: Discussed sedation and/or anesthesia options, risks, benefits, and alternatives with patient/parents/legal guardian/POA. Questions invited. The patient/parents/legal guardian/POA seems to understand and agrees to proceed with anesthesia plan. Reviewed the physical assessment, medical history, allergy history and patient home medications list prior to surgery/procedure/anesthetic and documented any changes. Performed airway and anesthesia risk assessments. Anesthesia Type Anesthesia Type: MAC History Source History Obtained from:: Patient and Chart Anesthesia Focused Assessment* Temperature: 97 F Pulse Rate: 55 Blood Pressure: 114/69 Respiratory Rate: 16 Pulse Ox: 98 Oxygen Delivery Method: Room Air Airway Assessment Mouth opens: >3 cm Mallampati Score: I Teeth Condition: Intact Neck Range of motion (ROM): Full ROM Comment: Patient has a full toscano. Focused Labs Anesthesia Preop lab: CBC WBC 7.2 K/mm3 (4.4-11.0) 01/30/24 10:45 RBC 5.50 M/mm3 (4.6-6.2) 01/30/24 10:45 Hgb 16.6 g/dL (13.0-16.5) H 01/30/24 10:45 Hct 48.4 % (40-54) 01/30/24 10:45 Plt Count 255 K/mm3 (150-450) 01/30/24 10:45 CHEMISTRY Potassium 4.1 mmol/L (3.5-5.1) 01/30/24 10:45 Sodium 139 mmol/L (136-145) 01/30/24 10:45 BUN 18 mg/dL (7-18) 01/30/24 10:45 Creatinine 1.08 mg/dL (0.70-1.30) 01/30/24 10:45 Glucose 106 mg/dL (74-106) 01/30/24 10:45 TSH 3.00 uIU/mL (0.358-3.74) 01/30/24 10:45 COAG PT 12.6 SECONDS (11.7-14.9) 01/30/24 10:45 Pre-Assessment Diagnosis/Proposed Procedure Planned Operative Procedure(s): EGD Anesthesia History Anesthesia History - certified lactation counselor: Anesthesia History - certified lactation counselor Hx Hospitalization No 02/02/24 09:05 Any Problems With Anesthesia No 02/02/24 09:05 Cholinesterase deficiency No 02/02/24 09:05 You/Your Family Experience No 02/02/24 09:05 fever (hyperthermia) with Relationship Recent Exposure to Contagious No 02/03/24 13:11 Disease Does patient have nerve No 02/02/24 09:05 stimulator Patient instructed to have device shut off --Does patient have Pacemaker No 02/03/24 13:11 or ICD? When Was Last Pacemaker Check QUESTION #4 FULL TEXT: You/Your Family Experience fever (hyperthermia) with Anesthesia Last Oral Intake Last Oral intake: Last Oral Intake NPO since 09:00 02/03/24 13:11 Meds taken in AM with sips of Yes 02/03/24 13:11 water? Meds patient instructed to take am of surgery PONV PONV - certified lactation counselor: PONV - certified lactation counselor Female No 02/02/24 09:05 HX of Motion Sickness No 02/02/24 09:05 HX of N/V After Surgery No 02/02/24 09:05 Non-Smoker No 02/02/24 09:05 Duration of Surgery greater No 02/02/24 09:05 than 60 minutes Number of Risk Factors PONV Score Height & Weight Height & Weight: Anesthesia: Height & Weight Height 6 ft 02/03/24 13:11 Weight: 110.6 kg 02/03/24 13:11 Body Mass Index (BMI) 33.0 02/03/24 13:11 Respiratory Assessment Respiratory Assessment - certified lactation counselor: Respiratory Tract Infection Hx - certified lactation counselor Hx Respiratory Tract Infection No 02/02/24 09:05 STOP Sleep Apnea STOP Sleep Apnea - certified lactation counselor: STOP Sleep Apnea - certified lactation counselor Hx Hypertension No 02/02/24 09:05 Hx Sleep Apnea No 02/02/24 09:05 CPAP BIPAP Do you snore loudly (louder No 02/02/24 09:05 than talking or can be heard Do you often feel tired/ Yes 02/02/24 09:05 fatigued/ sleepy during daytime? Has anyone observed you stop No 02/02/24 09:05 breathing during sleep? STOP Results Negative 02/02/24 09:05 QUESTION #5 FULL TEXT : Do you snore loudly (louder than talking or can be heard through closed doors)? 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 Specify any problems Hx of Preganancy in last 3 N/A 02/02/24 09:05 Months Nurse Filling Out Transfusion DSCHRIBER 02/02/24 09:05 & Questions: Date: 02/02/24 02/02/24 09:05 Time: 09:02/02/24 09:05 Patient unable to answer at this time (ie. confused, unrespo /Reproduction History /Reproductive History - certified lactation counselor: /Reproductive Hx- certified lactation counselor Hx Now No 02/02/24 09:05 Gestational Age (in weeks): EDC: Hx Hx Para Hx Section SAB No 02/02/24 09:05 Active Medications Active Medications: Current Medications Generic Name Dose Route Start Last Admin Trade Name Siobhan PRN Reason Stop Dose Admin Lactated Ringer's 1,000 mls @ 15 mls/hr 02/03/24 13:30 02/03/24 13:25 IV 15 mls/hr .Q48H ANNA Administration PFSH Medical History Wears contact lenses Wears glasses Restless legs Back pain Abdominal pain Leg cramps History of pain when walking Smoker Renal agenesis, unilateral Home Medications ?Medication ?Instructions ?Recorded ?Last Taken ?Type pantoprazole 40 mg tablet,delayed 40 mg PO DAILY #60 tabs 01/06/24 02/03/24 Rx release dicyclomine 10 mg capsule 10 mg PO BID PRN PRN abdominal pain 02/02/24 Unknown History lansoprazole 30 mg capsule,delayed 30 mg PO QHS 02/02/24 Unknown History release Allergy/AdvReac Type Severity Reaction Status Date / Time No Known Allergies Allergy Verified 02/03/24 13:09 Surgical History H/O wisdom tooth extraction Social History Smoking Status: Current every day smoker tobacco type: cigarettes and e- cigarettes alcohol intake: former details: prior alcohol issues substance use type: former substance user and marijuana well-balanced diet: daily or most days what type of physical activity do you participate in: none seatbelt use: always do you feel safe at home: Yes Review of Systems (Anesthesia) ROS Narrative System reviewed and no additional complaints, except as documented.
--- NOTE | 2024-02-03 14:00 | IMM_PTH ---
PATIENT: FRITZ MORSE LOC: EN U#:[id number] AGE/SX: 33/M ROOM: RE02/03/[address]: Dr. Rodrigo García DO : 1990 BED: DIS: 02/03/2024 SPEC #: [id number] RECD: 02/04/24 08:56 STATUS: SERENITY RELuci #: [id number] LUIS ARMANDO: 02/03/24 14:[address]: Rodrigo García DEPT: IMMUNOHISTOCHEMISTRY RECD BY: Aristides Castellon ENTERED: 02/04/24 08:56 SP TYPE: IMMUNO OTHR DR: Dr. Arun Gonzales [place], [place] Tissues: B - Gastric mucous membrane Procedures: H Pylori (initial) PHYSICIAN & INSTITUTION [place] [id number] SPECIMEN INFORMATION: Tissue Source: B- Gastric body biopsy Clinical Info: Elevated LFT's, nausea Specimen Number: [id number] CPT code: 78195 METHODOLOGY: Deparaffinized sections of prefer/formalin-fixed tissue or PAP/DQ stained slides are incubated with monoclonal/polyclonal antibodies/oligonucleotide probes. Localization is made via biotin free immunoperoxidase method. Appropriate controls are performed and reacted as expected. Results on target cell population are indicated in the following table: RESULTS: ANTIBODY / CLONE RESULT Block B H Pylori (polyclonal) negative These tests were developed and their performance characteristics determined by [facility]. They may not have been cleared or approved by the U.[place]. Food and Drug Administration. The FDA has determined that such clearance or approval is not necessary. The above immunohistochemical/dualISH markers are ordered and reviewed by the Pathologist. INTERPRETATION: B. Gastric body, biopsy: Negative for Helicobacter pylori organisms. SHARON/ 02/05/2024
--- NOTE | 2024-02-03 14:00 | EGD_PTH ---
PATIENT: FRITZ MORSE LOC: EN U#:[id number] AGE/SX: 33/M ROOM: RE02/03/[address]: Dr. Rodrigo García DO : 1990 BED: DIS: 02/03/2024 SPEC #: [id number] RECD: 02/03/24 17:01 STATUS: SERENITY LYLA #: [id number] LUIS ARMANDO: 02/03/24 14:[address]: Rodrigo García DEPT: SURGICAL PATHOLOGY RECD BY: Rachel Tanner ENTERED: 02/04/24 07:25 SP TYPE: EGD BIOPSY MITUL DR: DO Hina Rahman [place] Tissues: A - Duodenum, NOS B - Gastric mucous membrane C - Esophagus, NOS Procedures: Special Stain Group I Surgery Specimen Level IV Alcian Blue/PAS (control) HEADER OPERATION: EGD with biopsy PRE-OP DIAGNOSIS: Elevated LTF's, nausea TISSUE SUBMITTED: A- Duodenum biopsy, B- Gastric body biopsy, C- Random esophagus biopsy MICROSCOPIC DIAGNOSIS A. Duodenum, biopsy: Fragments of duodenal mucosa with mild non-specific chronic inflammation and congestion. B. Gastric body, biopsy: Mild gastritis. See microscopic description and comment. C. Esophagus, random biopsy: Fragments of squamous epithelium with focal mild superficial acute inflammation. A minute fragment of superficial gastric mucosa. Intestinal metaplasia (goblet cell metaplasia) not identified. See comment. SHARON/ 02/05/2024 COMMENT B. The results of immunohistochemistry for Helicobacter pylori will be reported separately ([id number]). C. Alcian blue/PAS stain with matched control is used in the evaluation of the specimen. Special stain for fungi is also used in the evaluation of the specimen; matched control is appropriate. A few fungal organisms (yeast and pseudohyphae), consistent with Trisha species are noted in the Alcian blue/PAS stain and rare organisms (yeast), consistent with Trisha species are noted in special stain for fungi. Correlation with clinical, endoscopic findings and appropriate follow up are necessary. Case has been reviewed in consultation with Dr. Mendoza who concurs with the above diagnosis. IDC:AM MICROSCOPIC DESCRIPTION Slides are reviewed. B. The specimen shows fragments of gastric mucosa with chronic inflammatory cell infiltrates in the lamina propria consisting of lymphocytes and plasma cells, consistent with mild chronic gastritis. GROSS DESCRIPTION A. Received in fixative is one container labeled with the patient's name and designated Duodenum biopsy. The specimen consists of multiple irregular fragments of light salgado soft tissue that in aggregate measure 1.0 x 0.3 x 0.1 cm. The specimen is totally submitted in one cassette. B. Received in fixative is one container labeled with the patient's name and designated Gastric body biopsy. The specimen consists of two irregular fragments of light salgado soft tissue that in aggregate measure 0.8 x 0.4 x 0.1 cm. The specimen is totally submitted in one cassette. C. Received in fixative is one container labeled with the patient's name and designated Random esophagus biopsy. The specimen consists of multiple irregular fragments of light salgado soft tissue that in aggregate measure 1.2 x 0.4 x 0.1 cm. The specimen is totally submitted in one cassette. Gunjan 02/04/2024 TC:3 CPT:[id number], [id number]
--- NOTE | 2024-02-03 14:06 | HP.PCM_ITS ---
History and Physical Date of Admission: 02/03/24 OV 01.30.24 Pt here for f/u on abdominal pain. Pt reports abdominal pain that has occurred about 4 times this year and is occompanied with nausea and vomiting. States he has daily BM and notices blood when he wipes. Stopped drinking a two years ago. Denies drug use. Takes pantoprazole daily. [facility] Medical History Renal agenesis, unilateral Social History (Updated 01/06/24 @ 10:46 by Haven Frazier MA) Smoking Status: Current every day smoker tobacco type: cigarettes and e- cigarettes alcohol intake: former details: prior alcohol issues substance use type: former substance user and marijuana well-balanced diet: daily or most days what type of physical activity do you participate in: none seatbelt use: always do you feel safe at home: Yes HPI HPI Chief Complaint: stomach pain Details: FRITZ MORSE, is a 33 M who presents to the office today for establishment with [facility]. He has been having episodes of abdominal pain, nausea/vomiting, sweating and headaches that awake him from his sleep. He has had these episodes once a month since June 2023. Pain has been in the RUQ and upper abdomen. He has presented to the ED on numerous occasions for these symptoms. He also complains of BRBPR each time he goes to the bathroom .He does have a hx of drinking alcohol but quit 2 years ago. He denies melena, hematochezia, hematemesis, diarrhea or constipation. Biochemical work up 01.06.24: Hgb 16.9, CA 10.3, AST 76, ALT 176, ALk PHOS 134 CT 10/15/23: 1. Fatty liver. 2. 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 The right kidney appears normal. 3. No acute pathology is otherwise identified. US 10.15.23 1. Echogenic partially visualized pancreas is nonspecific. Most of the pancreas is obscured. 2. Diffuse increased echogenicity throughout the liver without focal hepatic abnormality likely secondary to fatty infiltration. 3. No evidence of cholelithiasis or cholecystitis. ROS Const Constitutional: Positive for fatigue; No fever(s) or weight change ENT ENT: No difficulty swallowing Gastro GI: Positive for change in bowel habits and Blood in stool; No abdominal pain, belching, bloating, change in stool character, coffee ground emesis, constipation, cramping, diarrhea, heartburn, difficulty swallowing, feeling full early, excessive flatus, incontinent of stools, Vomiting blood/hematemesis, loose stools, Black,tarry stools, nausea/dyspepsia, pain with swallowing, vomiting or other Musc Musculoskeletal: Positive for back pain and stiffness; No joint pain Skin Skin: No yellowing of the eye or itchy eyes Psych Psychiatric: No anxiety and No depression Endo Endocrine: Positive for fatigue; No weight change Aller/Imm Allergy/Immunologic: No itchy eyes Galo/Lymp Hematologic/Lymphatic: No easy bleeding or easy bruising Exam Const General: cooperative and comfortable Nutritional Appearance: average body habitus and well nourished [facility] Head: normal to inspection Ears: hearing grossly normal bilaterally Nose: external nose normal Face and sinus: normal facial exam Mouth: oral mucosae normal Throat: posterior oropharynx normal Eyes General: appearance normal, both eyes and all related structures Neck Neck: normal visual inspection Chest Chest palpation & inspection: normal inspection of the chest and normal palpation of entire chest wall Resp Effort & Inspection: normal respiratory effort Auscultation: Bilateral: Clear to Auscultation Cardio Palpation: normal PMI Rate: regular rate Rhythm: regular rhythm GI Inspection: normal to inspection Auscultation: normal bowel sounds Percussion: normal to percussion Palpation: no hepatosplenomegaly Skin General: no rashes or lesions noted Neuro General: patient alert Extrem General: normal to inspection Psych Affect: normal affect Assessment and Plan Assessment and Plan (1) Elevated LFTs: Status: Acute Plan: Patient is here today to establish with [facility]. He has been having episodes of abdominal pain, n/v, and headache since Jun 2023. He has had elevated liver enzymes, fatty liver on US, and no signs of cholecystitis or cholelithiasis. He has a hx of alcohol use. Differential diagnosis includes acute hepatitis, autoimmune hepatitis, alcoholic cirrhosis, Cory disease, Duodenal or gastric ulcer -Will order blood work for acute hepatitis, autoimmune tests, copper, ceruloplasmin, CBC, CMP, ESR, CRP, cortisol -Prescribed dicyclomine for episodes of abdominal pain -Will order liver elastography -Scheduled for EGD to rule out gastric or duodenal ulcer -Will call patient with test results and go over further treatment plan (2) Nausea: Status: Acute Orders: Orders Ceruloplasmin Today R79.89 - Other specified abnormal findings of blood chemistry Hepatitis Panel Acute Today R79.89 - Other specified abnormal findings of blood chemistry Comprehensive Metabolic Profil Today R79.89 - Other specified abnormal findings of blood chemistry Copper, Serum or Plasma Today R79.89 - Other specified abnormal findings of blood chemistry CRP Today R79.89 - Other specified abnormal findings of blood chemistry Erythrocyte Sed Rate Today R79.89 - Other specified abnormal findings of blood chemistry Ferritin Today R79.89 - Other specified abnormal findings of blood chemistry Haptoglobin Today R79.89 - Other specified abnormal findings of blood chemistry Iron Binding Capacity,Total Today R79.89 - Other specified abnormal findings of blood chemistry CBC W/Diff, Automated Today R79.89 - Other specified abnormal findings of blood chemistry AFP, Tumor Marker Today R79.89 - Other specified abnormal findings of blood chemistry ANCA Today R79.89 - Other specified abnormal findings of blood chemistry Celiac Disease Profile Today R79.89 - Other specified abnormal findings of blood chemistry Anti-Mitochondrial AB Today R79.89 - Other specified abnormal findings of blood chemistry Stool Lactoferrin/WBC Today K58.9 - Irritable bowel syndrome without diarrhea Calprotectin, Stool Today R79.89 - Other specified abnormal findings of blood chemistry Pancreatic Elastase, Fecal Today R79.89 - Other specified abnormal findings of blood chemistry CORTISOL SERUM Today R11.0 - Nausea Thyroid Stim Hormone (TSH) Today R11.0 - Nausea Prothrombin Time w/INR Today R11.0 - Nausea Elastography Parenchyma/Organ Today R79.89 - Other specified abnormal findings of blood chemistry Medications: I have examined the patient and the H&P has been reviewed. There are no clinical changes since date of exam.
--- NOTE | 2024-02-03 15:02 | PCM.POST.ANE ---
Anesthesia: Postop Eval I Current Vital Signs Temperature: 97.1 F Pulse Rate: 88 Blood Pressure: 117/78 Respiratory Rate: 16 Pulse Ox: 97 Oxygen Delivery Method: Room Air Assessment Airway patent: Yes Spontaneous unlabored respirations: Yes Mental status: Awake and Calm nausea: No Vomiting: No Anesthesia Complication: No Fluid Hydration Crystalloid volume administer (ml): 400 Total IV fluid infused: 400 Progress Note Anesthesia document: Postop Eval 1 completed: Yes
--- NOTE | 2024-02-03 15:03 | OP.EGD_ITS ---
Patient Name: Valente Jensen Procedure Date: 02/03/2024 2:03 PM Date of : 1990 Age: 33 Procedure: Upper GI endoscopy Indications: Epigastric abdominal pain Providers: Rodrigo García DO Medicines: Monitored Anesthesia Care Patient Profile: This is a 33 year old male. Refer to note in patient chart for documentation of history and physical. Patient has symptoms of chronic epigastric abdominal pain and chronic nausea. Complications: No immediate complications. Procedure: Pre-Anesthesia Assessment: - Prior to the procedure, a History and Physical was performed, and patient medications and allergies were reviewed. The risks and benefits of the procedure and the sedation options and risks were discussed with the patient. All questions were answered and informed consent was obtained. Patient identification and proposed procedure were verified by the physician in the pre-procedure area. Mental Status Examination: alert and oriented. Airway Examination: normal oropharyngeal airway and neck mobility. Respiratory Examination: clear to auscultation. CV Examination: normal. Prophylactic Antibiotics: The patient does not require prophylactic antibiotics. Prior Anticoagulants: The patient has taken no anticoagulant or antiplatelet agents. ASA Grade Assessment: II - A patient with mild systemic disease. After reviewing the risks and benefits, the patient was deemed in satisfactory condition to undergo the procedure. The anesthesia plan was to use monitored anesthesia care (MAC). This assessment was completed before the administration of sedation. After obtaining informed consent, the endoscope was passed under direct vision. Throughout the procedure, the patient's blood pressure, pulse, and oxygen saturations were monitored continuously. The gastroscope was introduced through the mouth, and advanced to the second part of duodenum. The upper GI endoscopy was accomplished without difficulty. The patient tolerated the procedure well. Scope In: 2:46:57 PM Scope Out: 2:52:33 PM Total Procedure Duration Time 0 hours 5 minutes 36 seconds Findings: Non-severe esophagitis with no bleeding was found. Biopsies were taken with a cold forceps for histology. Verification of patient identification for the specimen was done. Estimated blood loss was minimal. Patchy mild inflammation characterized by erosions and erythema was found in the gastric body. Biopsies were taken with a cold forceps for histology. Verification of patient identification for the specimen was done. Estimated blood loss was minimal. Biopsies were taken with a cold forceps for Helicobacter pylori testing. Verification of patient identification for the specimen was done. Estimated blood loss was minimal. There was also 150 to 200 mL of fluid in the stomach. Patchy mildly erythematous mucosa without active bleeding and with no stigmata of bleeding was found in the duodenal bulb. Biopsies were taken with a cold forceps for histology. Verification of patient identification for the specimen was done. Estimated blood loss was minimal. Impression: - Non-severe candidiasis esophagitis with no bleeding. Biopsied. - Chronic gastritis. Biopsied. - Erythematous duodenopathy. Biopsied. Recommendation: - Discharge patient to home. - Resume previous diet. - Continue present medications. - Await pathology results. - Return to GI office. - Gastric emptying study Procedure Code(s): --- Professional --- 70554, Esophagogastroduodenoscopy, flexible, transoral; with biopsy, single or multiple CPT copyright 2021 [employer]. All rights reserved. The codes documented in this report are preliminary and upon marine equipment engineer review may be revised to meet current compliance requirements. Rodrigo García DO 02/03/2024 3:02:30 PM This report has been signed electronically. Number of Addenda: 0 Note Initiated On: 02/03/2024 2:03 PM
--- NOTE | 2024-02-03 15:03 | OP.CCLET_ITS ---
02/03/2024 Arun Gonzales Re : Upper GI endoscopy procedure for Ty Mikey Dear Dr. Gonzales This procedure was performed on Saturday, February 03, 2024. My impressions and recommendations are as follows: Impressions : - Non-severe candidiasis esophagitis with no bleeding. Biopsied. - Chronic gastritis. Biopsied. - Erythematous duodenopathy. Biopsied. Recommendations : - Discharge patient to home. - Resume previous diet. - Continue present medications. - Await pathology results. - Return to GI office. - Gastric emptying study My findings are described in the full procedure note, which is enclosed. If I can be of further assistance, please feel free to contact me at . Sincerely, Rodrigo García, 02/03/2024 3:02:30 PM This report has been signed electronically.
--- NOTE | 2024-02-03 15:36 | PCM.POSTANE2 ---
Anesthesia Postop Eval I Sum Postop Eval Completion status Anesthesia document: Postop Eval 1 completed: Yes Anesthesia Postop Eval I Summary Anesthesia Postop Eval I Summary: Anesthesia Postop Eval I: Assessment Summary Airway patent Yes 02/03/24 15:03 [email or web address] Spontaneous unlabored Yes 02/03/24 15:03 [email or web address] respirations Mental status Awake,Calm 02/03/24 15:03 [email or web address] nausea No 02/03/24 15:03 [email or web address] Vomiting No 02/03/24 15:03 [email or web address] Anesthesia Postop Eval I: Fluid Summary Crystalloid volume administer 400 02/03/24 15:03 [email or web address] (ml) Colloids volume administered ( ml) Blood Product volume administered (ml) Total IV fluid infused 400 02/03/24 15:03 [email or web address] Anesthesia Postop Eval I: Summary Notes Anesthesia Complication No 02/03/24 15:03 [email or web address] Anesthesia Complication Comment: Post-operative progress note Anesthesia: Postop Eval II Evaluation Mental status: Awake and Calm Pain Level: 0 nausea: No Vomiting: No Complications Anesthesia Complication: No
[2024-02-03 17:04] LABS: Hemoglobin A1c 5.6 % (3.8-5.6)
[2024-02-07 10:42] LABS: Calprotectin, Stool 191 ug/g (0-120)
[2024-02-10 11:59] LABS: Pancreatic Elastase, Fecal > 800 (>200)
== END 2024-02-03 15:38 | disposition home or self-care (01) ==
LOC: EN 12:57 → AC 12:58
PROVIDERS: Student in an Organized Health Care Education/Training Program; PCP Family Medicine; Referring Provider Internal Medicine Gastroenterology; Visit Provider Internal Medicine Gastroenterology
PROC: 0DJ08ZZ Inspection of Upper Intestinal Tract, Via Natural or Artificial Opening Endoscopic (ICD-10-PCS; CPT 43235; principal; 2024-02-03 13:55)
DX: B37.81 Candidal esophagitis (principal); F19.19 Other psychoactive substance abuse with unspecified psychoactive substance-induced disorder; K29.50 Unspecified chronic gastritis without bleeding; K22.70 Barrett's esophagus without dysplasia; Q60.0 Renal agenesis, unilateral; G89.29 Other chronic pain; G25.81 Restless legs syndrome; F17.210 Nicotine dependence, cigarettes, uncomplicated; F12.99 Cannabis use, unspecified with unspecified cannabis-induced disorder; F10.91 Alcohol use, unspecified, in remission; Z79.899 Other long term (current) drug therapy
CPT/HCPCS: 43239; 36415; 82653; 83036; 83630; 83993; 88305; 88312; 88342; J7120; J2405

== ENCOUNTER → 2024-02-12 | Outpatient (CLI) | payer BC, SELFPAY ==
--- NOTE | 2024-02-12 07:22 | US_ITS ---
STUDY: ABDOMINAL ULTRASOUND - ELASTOGRAPHY REASON FOR VISIT: Male, 33 years old. Fatty infiltration of the liver. TECHNIQUE: Liver stiffness measurements were obtained on a [employer] RS 85 ultrasound machine using a CA 1-7 probe following the U guidelines. 3 measurements were obtained using a 2-D-SWE method. TheIQR/M was 12% suggesting a quality data set. TECHNICAL QUALITY: Adequate. COMPARISON: Comparison is made with prior sonogram of the right upper quadrant dated October 15, 2023. FINDINGS: Liver: Fatty infiltration of the liver. Median liver stiffness measured 7.8 kPa. Abdomen: There is no demonstrated mass lesion. US/Elastography Parenchyma/Organ IMPRESSION: Liver stiffness measures 7.8 kPa compatible with F2-F3 (Mild to moderate liver fibrosis) Metavir score. Electronically Signed: Bhavin Lovelace MD at 14:26 EDT ,
== END | disposition home or self-care (01) ==
PROVIDERS: PCP Family Medicine; Referring Provider Student in an Organized Health Care Education/Training Program; Visit Provider Student in an Organized Health Care Education/Training Program
DX: R79.89 Other specified abnormal findings of blood chemistry (principal)
CPT/HCPCS: 76981

== ENCOUNTER 2024-02-15 17:53 | Emergency (ER) | payer BC, SELFPAY ==
[2024-02-15 17:54] VITALS: BP 143/89; PULSE 92; RESP 18; TEMP 35.7; O2SAT 99; BMI 33.3
[2024-02-15] MEDS: Ondansetron 4 MG/2 ML Vial IV (18:38)
[2024-02-15] MEDS: Morphine 4 MG/ML Syringe IV (18:38)
[2024-02-15] MEDS: 0.9% Normal Saline (1000mL) 1,000 ML 999 ML IV (18:38)
[2024-02-15] MEDS: Ketorolac 15 MG/ML Vial IV (18:39)
[2024-02-15 18:42] LABS: Absolute Lymphocyte Count 2.84 X10^3/uL (0.83-4.51); Basophil# 0.06 X10^3/uL; Basophil% 0.6 % (0-1); Eosinophil# 0.42 X10^3/uL; Eosinophils% 4.2 % (0-5); Hematocrit 49.8 % (40-54); Hemoglobin 17.2 g/dL (13.0-16.5); Lymphocyte # 2.84 X10^3/ul (0.83-4.51); Lymphocyte % 28.1 % (19-41); Mean Corp Hgb Conc 34.5 g/dL (32-36); Mean Corpuscular Hgb 30.6 pg (27.0-32.0); Mean Corpuscular Volume 88.5 fL (80-94); Mean Platelet Vol. 9.3 fl (6.2-12.0); Monocyte# 0.71 X10^3/uL; NRBC Flagged by Analyzer 0 % (0-5); Neutrophil # 6.04 X10^3/uL (2.7-7.7); Neutrophil % 59.8 % (47-70); Platelet Count 284 K/mm3 (150-450); RBC Distribution Width CV 11.9 % (11.6-14.6); Red Blood Count 5.63 M/mm3 (4.6-6.2); White Blood Count 10.1 K/mm3 (4.4-11.0)
--- NOTE | 2024-02-15 18:53 | EX.ED.DYSGE1 ---
HPI <LETITIA Kapoor - Last Filed: 02/15/24 21:38> History of Present Illness Chief Complaint: Abd Pain Narrative Narrative: Patient is a 33-year-old male with history of 1 year of ongoing abdominal pain. Patient states he has received multiple testing, pain is mostly in the right upper quadrant. He is currently getting worked up for diabetes as well. He does see DrChantal Friend here. Patient recently had some ultrasounds, diagnosed with liver fibrosis. Patient states today roughly 2 PM, he had severe pain to his right upper quadrant, nausea, sweating and is here for reevaluation. Patient denies any constipation or diarrhea, denies any blood in stool or vomit. PFSH <LETITIA Kapoor - Last Filed: 02/15/24 21:38> PFS Medical History Wears contact lenses Wears glasses Restless legs Back pain Abdominal pain Leg cramps History of pain when walking Smoker Renal agenesis, unilateral Home Medications ?Medication ?Instructions ?Recorded ?Last Taken ?Type pantoprazole 40 mg tablet,delayed 40 mg PO DAILY #60 tabs 01/06/24 02/03/24 Rx release dicyclomine 10 mg capsule 10 mg PO BID PRN PRN abdominal pain 02/02/24 Unknown History lansoprazole 30 mg capsule,delayed 30 mg PO QHS 02/02/24 Unknown History release sucralfate 1 gram tablet 1 g PO QAC #90 tabs 02/10/24 Unknown Rx Allergy/AdvReac Type Severity Reaction Status Date / Time No Known Allergies Allergy Verified 02/15/24 17:54 Surgical History H/O wisdom tooth extraction Social History Smoking Status: Current every day smoker tobacco type: cigarettes and e-cigarettes alcohol intake: former details: prior alcohol issues substance use type: former substance user and marijuana well-balanced diet: daily or most days what type of physical activity do you participate in: none seatbelt use: always do you feel safe at home: Yes ROS <LETITIA Kapoor - Last Filed: 08/18/24 21:38> ROS ED ROS Narrative Constitutional: Negative for fever, chills, weight loss, weakness Eyes: Negative for vision loss, vision change, double vision ENT: Negative for any sore throat, ear pain, congestion Cardiovascular: Negative for any chest pain, tightness, palpitations Respiratory: Negative for any cough, sputum production, hemoptysis, dyspnea, dyspnea on exertion, orthopnea Gastrointestinal: Negative for any vomiting, diarrhea, constipation, blood in stool, blood in vomit. Positive for right upper quadrant pain : Negative for any urinary frequency, dysuria, retention, blood in urine Muscle skeletal: Negative for any neck pain, back pain Neurological: Negative for any headache, syncope, dizziness Skin: Negative for any rashes, itching, abrasions, lacerations Psychiatric: Negative for any depression, anxiety, stress, suicidal ideation, homicidal ideation Hematologic: Negative for any excessive bruising, easy bleeding EXAM <LETITIA Kapoor - Last Filed: 02/15/24 21:38> Physical Exam Narrative Exam Narrative: Vital signs reviewed. Patient does appear in moderate amount of pain to the right upper quadrant. Slightly diaphoretic HEET: Head normocephalic atraumatic, TMs clear bilaterally. Posterior pharynx is clear, moist mucous membranes. Nares clear bilaterally. Neck: Supple with no lymphadenopathy or tenderness. No signs of meningismus. Cardiac: Regular rate and rhythm no murmurs gallops or rubs, equal peripheral pulses bilaterally. Respiratory: Lungs clear to auscultation bilaterally. No chest tenderness. Abdomen: Soft, nondistended. No abdominal bruit or pulsatile masses. No hepatosplenomegaly. Tenderness of the right upper quadrant Extremities: No peripheral edema, no signs of gross trauma or deformity. Active full range of motion of all extremities. Neuro: Cranial nerves II through XII intact, no focal neurological deficits. Skin: Clean dry and intact with no rash, purpura, petechiae, vesicles or pustules. Backs/flank: No CVA tenderness, no midline spinal tenderness, no deformity. Psych: Normal mood and affect. No SI, HI or acute psychosis. Const Vital Signs: 02/15/24 17:54 02/15/24 19:53 02/15/24 21:00 Temperature 96.3 F L Temperature Source Temporal Pulse Rate 92 77 69 Respiratory Rate 18 16 16 Blood Pressure 143/89 H 118/64 117/66 Blood Pressure Mean 107 82 83 Pulse Ox 99 99 99 Oxygen Delivery Method Room Air Room Air Room Air 02/15/24 21:48 Temperature 97 F L Temperature Source Pulse Rate 77 Respiratory Rate 16 Blood Pressure 111/69 Blood Pressure Mean 83 Pulse Ox 99 Oxygen Delivery Method Positive well nourished and well developed General Appearance ED: well developed <Dr. Darrin Murphy MD - Last Filed: 02/15/24 21:53> Physical Exam Const Vital Signs: 02/15/24 17:54 02/15/24 19:53 02/15/24 21:00 Temperature 96.3 F L Temperature Source Temporal Pulse Rate 92 77 69 Respiratory Rate 18 16 16 Blood Pressure 143/89 H 118/64 117/66 Blood Pressure Mean 107 82 83 Pulse Ox 99 99 99 Oxygen Delivery Method Room Air Room Air Room Air 02/15/24 21:48 Temperature 97 F L Temperature Source Pulse Rate 77 Respiratory Rate 16 Blood Pressure 111/69 Blood Pressure Mean 83 Pulse Ox 99 Oxygen Delivery Method MDM <LETITIA Kapoor - Last Filed: 02/15/24 21:38> MDM Lab Data Labs: Laboratory Results - last 24 hr 02/15/24 02/15/24 18:17 19:18 WBC 10.1 RBC 5.63 Hgb 17.2 H Hct 49.8 MCV 88.5 MCH 30.6 MCHC 34.5 RDW Std Deviation 39.0 RDW Coeff of [place] 11.9 Plt Count 284 MPV 9.3 Immature Gran % (Auto) 0.300 Neut % (Auto) 59.8 Lymph % (Auto) 28.1 [place] % (Auto) 7.0 Eos % (Auto) 4.2 Baso % (Auto) 0.6 Absolute Neuts (auto) 6.0 Absolute Lymphs (auto) 2.84 Nucleated RBC % 0 Sodium 142 Potassium 3.7 Chloride 109 H Carbon Dioxide 28.0 Anion Gap 5 BUN 10 Creatinine 1.10 Estim Creat Clear Calc 125.43 Est GFR (MDRD) Af Amer 100 Est GFR (MDRD) Non-Af 83 BUN/Creatinine Ratio 9.1 L Glucose 99 Calcium 9.8 Total Bilirubin 0.30 AST 58 H ALT 147 H Alkaline Phosphatase 146 H Total Protein 8.1 Albumin 3.9 Globulin 4.2 Albumin/Globulin Ratio 0.9 Lipase 58 Urine Color Yellow Urine Clarity Clear Urine pH 6.0 Ur Specific [place] 1.025 Urine Protein 15 H Urine Glucose (UA) Normal Urine Ketones Negative Urine Occult Blood Negative Urine Nitrite Negative Urine Bilirubin Negative Urine Urobilinogen 1 H Ur Leukocyte Esterase 25 H Urine RBC 0 SEEN Urine WBC 0-5 SEEN Ur Squamous Epith Cells 0-5 SEEN Urine Bacteria 0 SEEN Urine Mucus 0 SEEN Treatment and Re-Evaluation :: Differential diagnosis includes however is not limited to: Acute cholecystitis, liver cirrhosis, acute on chronic abdominal pain, bowel obstruction, pancreatitis Patient does look uncomfortable on initial evaluation, patient does have pain to the right upper quadrant. Patient vital signs are stable, nontoxic-appearing. Patient received an abdominal workup including IV fluids, Zofran, morphine, Toradol. Patient also received basic laboratory values, CBC CMP lipase rules urinalysis. Patient will be reevaluated. Patient does have recent CT scans, ultrasounds, within the last 3 to 4 months. On reevaluation was improved.Patient patient CBC was unremarkable, negative for any leukocytosis, patient's CMP for some transaminitis that is chronic, AST of 58, ALT of 147 alkaline phosphatase of 146. Lipase was negative. Urinalysis was negative for any infection. <Dr. Darrin Murphy MD - Last Filed: 02/15/24 21:53> [facility] Narrative Medical decision making narrative: I have personally performed a face to face assessment of the patient and have reviewed the REEMA Note. I performed a substantive portion of the visit including all aspects of the following. My kam findings include: History is [33-year-old male chronic abdominal pain for the last 8 months. Currently seeing GI and having multitude of tests being performed and coming up to see them, but the diagnosis. He has had a CAT scan, ultrasound and a study of his liver.] Exam is [33-year-old male no acute distress vital signs stable afebrile. HEENT exam unremarkable. Lungs clear. Heart regular rhythm no murmur. Abdomen soft nontender. That is after he was given pain medication. Moving all 4 extremities. Nontender no edema. Neurologically is awake and alert. Back nontender.] Medical Decision Making [33-year-old with acute on chronic abdominal pain with a benign exam.] Other additions or changes: [Workup unremarkable other than chronic Le elevated liver enzymes. He has outpatient follow-up with GI this week for a gastric emptying study and a colonoscopy.] History & Record Review Discussion w/independent historian: Patient Additional record(s) reviewed:: Prior inpatient record, Prior outpatient record, Prior ED visit and Prior labs Lab Data Attestation: I reviewed the patient's lab results. Lab results narrative: CBC normal. White count of 10. H&H 17 and 49. Platelets 284. Electrolytes unremarkable gap 5. Normal BUN and creatinine. Glucose 99. Liver enzymes slightly elevated AST, ALT and alk phos that has been similar to prior test. Lipase normal at 58. UA normal. Labs: Laboratory Results - last 24 hr 02/15/24 02/15/24 18:17 19:18 WBC 10.1 RBC 5.63 Hgb 17.2 H Hct 49.8 MCV 88.5 MCH 30.6 MCHC 34.5 RDW Std Deviation 39.0 RDW Coeff of [place] 11.9 Plt Count 284 MPV 9.3 Immature Gran % (Auto) 0.300 Neut % (Auto) 59.8 Lymph % (Auto) 28.1 [place] % (Auto) 7.0 Eos % (Auto) 4.2 Baso % (Auto) 0.6 Absolute Neuts (auto) 6.0 Absolute Lymphs (auto) 2.84 Nucleated RBC % 0 Sodium 142 Potassium 3.7 Chloride 109 H Carbon Dioxide 28.0 Anion Gap 5 BUN 10 Creatinine 1.10 Estim Creat Clear Calc 125.43 Est GFR (MDRD) Af Amer 100 Est GFR (MDRD) Non-Af 83 BUN/Creatinine Ratio 9.1 L Glucose 99 Calcium 9.8 Total Bilirubin 0.30 AST 58 H ALT 147 H Alkaline Phosphatase 146 H Total Protein 8.1 Albumin 3.9 Globulin 4.2 Albumin/Globulin Ratio 0.9 Lipase 58 Urine Color Yellow Urine Clarity Clear Urine pH 6.0 Ur Specific [place] 1.025 Urine Protein 15 H Urine Glucose (UA) Normal Urine Ketones Negative Urine Occult Blood Negative Urine Nitrite Negative Urine Bilirubin Negative Urine Urobilinogen 1 H Ur Leukocyte Esterase 25 H Urine RBC 0 SEEN Urine WBC 0-5 SEEN Ur Squamous Epith Cells 0-5 SEEN Urine Bacteria 0 SEEN Urine Mucus 0 SEEN Discharge Plan Triage Chief Complaint: Abd Pain ED Midlevel Provider: Jese Velez ED Provider: Darrin Murphy Dx/Rx/DC Orders Prescriptions: No Action pantoprazole 40 mg tablet,delayed release (DR/EC) 40 mg PO DAILY Qty: 60 0RF lansoprazole 30 mg capsule,delayed release(DR/EC) 30 mg PO QHS dicyclomine 10 mg capsule 10 mg PO BID PRN PRN (Reason: abdominal pain) sucralfate 1 gram tablet 1 g PO QAC Qty: 90 0RF Primary Care Provider: Arun Gonzales Referrals: Arun Gonzales, DO [Primary Care Provider] - Print Language: Faroese
[2024-02-15 19:02] LABS: ALB/GLOB Ratio 0.9 RATIO (0.9-2.4); AST(SGOT) 58 U/L (15-37); Alanine Aminotransfer ALT/SGPT 147 U/L (16-61); Albumin, Serum 3.9 g/dL (3.2-5.0); Alkaline Phosphatase 146 U/L (45-117); Anion Gap 5 (5-15); BUN 10 mg/dL (7-18); BUN/Creat Ratio 9.1 RATIO (10-20); Calcium,Total 9.8 mg/dL (8.5-10.1); Chloride 109 mmol/L (98-107); EST Glomerular Filtration Rate 83 mL/min (>60); Est Glom Filt Rate - Afr Amer 100 mL/min (>60); Estimated Creatinine Clearance 125.43 ml/min; Globulin 4.2 g/dL (2.2-4.2); Glucose 99 mg/dL (74-106); Lipase 58 U/L (13-75); Potassium 3.7 mmol/L (3.5-5.1); Protein, Total 8.1 g/dL (6.4-8.2); Sodium Level 142 mmol/L (136-145)
[2024-02-15 19:26] LABS: Bacteria 0 SEEN /hpf (None Seen); Mucous, Urine 0 SEEN /hpf (<or=2+); Red Blood Cells-Urine 0 SEEN /hpf (0-5)
[2024-02-15 19:31] LABS: Color, Urine Yellow (Yellow); Glucose, Dipstick Normal (Normal); Ketone-Dipstick Negative (Negative); Leukocyte Esterase-Dipstick 25 /ul (Negative); Nitrite-Dipstick Negative (Negative); Occult Blood-Urine Negative /ul (Negative); Protein-Dipstick 15 mg/dl (Negative); Specific Gravity, Urine 1.025 (1.002-1.030); Urine Bilirubin Dipstick Negative (Negative); Urine Clarity Clear (Clear); Urine Urobilinogen 1 mg/dl (Normal)
[2024-02-15 19:39] LABS: Squamous Epithelial Cells - UA 0-5 SEEN /hpf (0-5); White Blood Cells 0-5 SEEN /hpf (0-5)
[2024-02-15 19:53] VITALS: BP 118/64; PULSE 77; RESP 16; O2SAT 99
[2024-02-15 21:00] VITALS: BP 117/66; PULSE 69; RESP 16; O2SAT 99
[2024-02-15 21:48] VITALS: BP 111/69; PULSE 77; RESP 16; TEMP 36.1; O2SAT 99
== END 2024-02-15 22:00 | disposition home or self-care (01) ==
PROVIDERS: Nurse Practitioner; Emergency Provider Emergency Medicine; PCP Family Medicine; Visit Provider Emergency Medicine
DX: R10.11 Right upper quadrant pain (principal); R11.0 Nausea; F17.210 Nicotine dependence, cigarettes, uncomplicated; F17.290 Nicotine dependence, other tobacco product, uncomplicated
CPT/HCPCS: 80053; 81001; 83690; 85025; 96361; 96374; 96375; 99283; J7030; A4216; J2405

== ENCOUNTER 2024-02-17 05:50 | Observation (INO) | payer BC, SELFPAY ==
[2024-02-17] VITALS (17 sets, daily range): BP systolic 110–154; BP diastolic 61–105; PULSE 56–75; RESP 16–22; TEMP 36.2–36.8; O2SAT 92–100; BMI 33.5; BMI 33.3
--- NOTE | 2024-02-17 06:09 | CT_ITS ---
STUDY: CT ABDOMEN AND PELVIS WITH CONTRAST REASON FOR EXAM: Male, 33 years old patient with right upper quadrant (RUQ) abdominal pain. RADIATION DOSAGE (If Supplied By Facility): CTDIvol = ( 18.29 ) mGy, DLP = ( 1346.57 ) mGycm TECHNIQUE: Transaxial images were obtained from the dome of the diaphragm to the symphysis pubis without oral contrast. 100 ml of IV Isovue-300 was administered. Sagittal and coronal images were reconstructed. Individualized dose optimization techniques were used for this CT. COMPARISON: CT of the abdomen and pelvis dated October 15, 2023. FINDINGS: The visualized lung bases are unremarkable. The visualized portions of the heart are within normal limits. Normal liver. No gallstones are visualized. There is suggestion for mild gallbladder wall thickening and/or pericholecystic fluid. Normal spleen. Normal pancreas. Normal bilateral adrenal glands. Normal right kidney. Left kidney is absent. Normal visualized stomach. There is no obvious dilated bowel, ascites or pneumoperitoneum. Small bowel has a grossly normal appearance. There is stool and/or gas visible within the colon. The appendix is visualized and appears normal. Normal abdominal aorta. Normal inferior vena cava. Normal retroperitoneum. Normal urinary bladder. Normal visualized prostate gland. Normal abdominal wall. The lumbar vertebral bodies have normal height and alignment. There is irregular contour to the endplates of several of the thoracic vertebral bodies with some wedge-shaped deformity suggesting sequela of Scheuermann''s disease. CT/Abdomen/Pelvis W IV Cont ONLY IMPRESSION: Findings suggest sequela of early acute cholecystitis. Electronically Signed: Ana Holm MD at 7:09 EDT ,
--- NOTE | 2024-02-17 06:10 | EX.ED.DYSGE1 ---
HPI History of Present Illness Chief Complaint: Abd Pain Narrative Narrative: Patient is a 33-year-old male with a past medical history of restless leg who presents to the [facility] part with chief complaint of abdominal pain. Patient states at 330 this morning his right upper quadrant abdominal pain woke him up. He states that he thought the pain would improve however his symptoms were not prompting him to come here for the evaluation management. He states that he had an attack on Friday very similar presentation. He states that he is following with Dr. García to try and figure out what is going on exactly as has been going on for at least a month now. He states that he had an EGD and has to have a gastric emptying study performed today actually. Patient states that he did not take anything for pain prior to arrival here. He states that he ate pot roast for dinner last night. Denies any recent sick contacts. States he vomited twice. [facility] Medical History Wears contact lenses Wears glasses Restless legs Back pain Abdominal pain Leg cramps History of pain when walking Smoker Renal agenesis, unilateral Home Medications ?Medication ?Instructions ?Recorded ?Last Taken ?Type pantoprazole 40 mg tablet,delayed 40 mg PO DAILY #60 tabs 01/06/24 02/03/24 Rx release dicyclomine 10 mg capsule 10 mg PO BID PRN PRN abdominal pain 02/02/24 Unknown History lansoprazole 30 mg capsule,delayed 30 mg PO QHS 02/02/24 Unknown History release sucralfate 1 gram tablet 1 g PO QAC #90 tabs 02/10/24 Unknown Rx Allergy/AdvReac Type Severity Reaction Status Date / Time No Known Allergies Allergy Verified 02/15/24 17:54 Surgical History H/O wisdom tooth extraction Social History Smoking Status: Current every day smoker tobacco type: cigarettes and e-cigarettes alcohol intake: former details: prior alcohol issues substance use type: former substance user and marijuana well-balanced diet: daily or most days what type of physical activity do you participate in: none seatbelt use: always do you feel safe at home: Yes ROS ROS ED ROS Narrative Constitutional: Denies any fevers, chills, headaches, lightheadedness, dizziness Cardiovascular: Denies chest pain or palpitations Respiratory: Denies coughing wheezing shortness of breath Abdomen: Complains of right upper quadrant abdominal pain and vomiting denies diarrhea : Denies urinary symptoms Neurological: Denies back pain Skin: [Denies rashes or lesions EXAM Physical Exam Narrative Exam Narrative: General: Patient was lying in bed did appear to be uncomfortable secondary to his abdominal pain Head: Atraumatic, normocephalic Eyes: PERRL bilaterally, EOMI bilaterally, no conjunctival injection noted Neck: Soft, supple, trachea midline Cardiovascular: Regular rate and rhythm no murmurs gallops rubs noted Respiratory: Clear to auscultation bilaterally no rales rhonchi wheeze noted Abdomen: Soft, nondistended, tender to palpation the right upper quadrant no rebound or guarding on exam Extremities: +5/5 strength noted in the bilateral upper and lower extremities, no pedal edema on exam Neurological: Patient following commands knew that he was at [facility] he was 2023 Skin: Warm, dry contact Const Vital Signs: 02/17/24 05:51 02/17/24 05:55 02/17/24 06:55 Temperature 97.5 F L 97.5 F L 98 F Temperature Source Oral Oral Oral Pulse Rate 74 75 74 Respiratory Rate 22 H 18 18 Blood Pressure 154/105 H 154/105 H 148/68 H Blood Pressure Mean 121 121 94 Pulse Ox 100 100 98 Oxygen Delivery Method Room Air Room Air Room Air MDM MDM MDM Narrative Medical decision making narrative: Patient is a 33-year-old male who presented to the emergency department chief complaint of abdominal pain. Patient will have a workup performed here on the differential diagnose includes but not limited to cholecystitis, pancreatitis, gastroparesis, urolithiasis. Once workup is obtained reviewed he will be reevaluated. Patient be given IV fluids, Reglan and Bentyl. Patient CBC reviewed showed no evidence of leukocytosis white blood count normal 9.5, hemoglobin 16.5, platelet count normal at 273. Patient sodium normal 139, potassium normal 4.1, creatinine normal 1.23. Patient's AST elevated 49, ALT elevated 129 and alk phosphatase elevated to 128. Patient's lipase normal at 57. Patient CT abdomen pelvis with IV contrast was reviewed and showed findings suggestive of early acute cholecystitis. Patient was given Zosyn. Did discuss case with on-call surgeon Dr. Bearden who will accept patient for admission. Patient was notified with all question concerns answered bedside. Lab Data Labs: Laboratory Results - last 24 hr 02/17/24 05:58 WBC 9.5 RBC 5.27 Hgb 16.5 Hct 46.8 MCV 88.8 MCH 31.3 MCHC 35.3 RDW Std Deviation 39.5 RDW Coeff of [place] 12.1 Plt Count 273 MPV 9.5 Immature Gran % (Auto) 0.300 Neut % (Auto) 69.0 Lymph % (Auto) 20.2 [place] % (Auto) 6.9 Eos % (Auto) 3.1 Baso % (Auto) 0.5 Absolute Neuts (auto) 6.6 Absolute Lymphs (auto) 1.92 Nucleated RBC % 0 Sodium 139 Potassium 4.1 Chloride 107 Carbon Dioxide 26.0 Anion Gap 6 BUN 12 Creatinine 1.23 Estim Creat Clear Calc 112.45 Est GFR (MDRD) Af Amer 88 Est GFR (MDRD) Non-Af 73 BUN/Creatinine Ratio 9.8 L Glucose 110 H Calcium 9.6 Total Bilirubin 0.50 AST 49 H ALT 129 H Alkaline Phosphatase 128 H Total Protein 7.9 Albumin 3.7 Globulin 4.2 Albumin/Globulin Ratio 0.9 Lipase 57 Radiography Diagnostic Testing: Clinical Impression(s) from Imaging Studies Abdomen/Pelvis CT 02/17/24 06:09 IMPRESSION: Findings suggest sequela of early acute cholecystitis. Electronically Signed: Ana Holm MD at 7:09 EDT Reading Location ID and State: [facility] / [place] , Service support , Discharge Plan Triage Chief Complaint: Abd Pain ED Provider: Flash Myers Dx/Rx/DC Orders Clinical Impression: Acute cholecystitis Prescriptions: No Action pantoprazole 40 mg tablet,delayed release (DR/EC) 40 mg PO DAILY Qty: 60 0RF lansoprazole 30 mg capsule,delayed release(DR/EC) 30 mg PO QHS dicyclomine 10 mg capsule 10 mg PO BID PRN PRN (Reason: abdominal pain) sucralfate 1 gram tablet 1 g PO QAC Qty: 90 0RF Primary Care Provider: Arun Gonzales Referrals: Arun Gonzales, DO [Primary Care Provider] - Print Language: Belarusian
[2024-02-17] MEDS: Metoclopramide 10 MG/2 ML Vial IV (06:18)
[2024-02-17] MEDS: 0.9% Normal Saline (1000mL) 1,000 ML 999 ML IV (06:18)
[2024-02-17] MEDS: Dicyclomine 10 MG Capsule 20 MG PO (06:19)
[2024-02-17 06:21] LABS: Absolute Lymphocyte Count 1.92 X10^3/uL (0.83-4.51); Absolute Neutrophil Count 6.6 X10^3/uL (2.0-7.7); Basophil# 0.05 X10^3/uL; Basophil% 0.5 % (0-1); Eosinophil# 0.29 X10^3/uL; Eosinophils% 3.1 % (0-5); Hematocrit 46.8 % (40-54); Hemoglobin 16.5 g/dL (13.0-16.5); Lymphocyte # 1.92 X10^3/ul (0.83-4.51); Lymphocyte % 20.2 % (19-41); Mean Corp Hgb Conc 35.3 g/dL (32-36); Mean Corpuscular Hgb 31.3 pg (27.0-32.0); Mean Corpuscular Volume 88.8 fL (80-94); Mean Platelet Vol. 9.5 fl (6.2-12.0); Monocyte# 0.66 X10^3/uL; Monocyte% 6.9 % (0-10); NRBC Flagged by Analyzer 0 % (0-5); Neutrophil # 6.55 X10^3/uL (2.7-7.7); Platelet Count 273 K/mm3 (150-450); RBC Distribution Width CV 12.1 % (11.6-14.6); RBC Distribution Width SD 39.5 fl (35.1-43.9); Red Blood Count 5.27 M/mm3 (4.6-6.2); White Blood Count 9.5 K/mm3 (4.4-11.0)
[2024-02-17 06:37] LABS: ALB/GLOB Ratio 0.9 RATIO (0.9-2.4); AST(SGOT) 49 U/L (15-37); Alanine Aminotransfer ALT/SGPT 129 U/L (16-61); Albumin, Serum 3.7 g/dL (3.2-5.0); Alkaline Phosphatase 128 U/L (45-117); Anion Gap 6 (5-15); BUN 12 mg/dL (7-18); BUN/Creat Ratio 9.8 RATIO (10-20); Calcium,Total 9.6 mg/dL (8.5-10.1); Chloride 107 mmol/L (98-107); Creatinine, Serum 1.23 mg/dL (0.70-1.30); EST Glomerular Filtration Rate 73 mL/min (>60); Est Glom Filt Rate - Afr Amer 88 mL/min (>60); Estimated Creatinine Clearance 112.45 ml/min; Globulin 4.2 g/dL (2.2-4.2); Glucose 110 mg/dL (74-106); Lipase 57 U/L (13-75); Potassium 4.1 mmol/L (3.5-5.1); Protein, Total 7.9 g/dL (6.4-8.2); Sodium Level 139 mmol/L (136-145)
[2024-02-17] MEDS: Piperacil/Tazobactam 3.375 GM in 0.9% Normal Saline (50mL MB+) 50 ML IV (07:33)
[2024-02-17 08:05] LABS: Bacteria 0 SEEN /hpf (None Seen); Mucous, Urine 0 SEEN /hpf (<or=2+); Red Blood Cells-Urine 0 SEEN /hpf (0-5); Squamous Epithelial Cells - UA 0 SEEN /hpf (0-5)
[2024-02-17 08:08] LABS: Color, Urine Yellow (Yellow); Glucose, Dipstick Normal (Normal); Ketone-Dipstick Negative (Negative); Leukocyte Esterase-Dipstick 25 /ul (Negative); Nitrite-Dipstick Negative (Negative); Occult Blood-Urine Negative /ul (Negative); Protein-Dipstick 15 mg/dl (Negative); Specific Gravity, Urine 1.005 (1.002-1.030); Urine Bilirubin Dipstick Negative (Negative); Urine Clarity Clear (Clear); Urine Urobilinogen Normal (Normal); Urine pH 6.5 (5.0 - 8.0)
[2024-02-17 08:15] LABS: White Blood Cells 0-5 SEEN /hpf (0-5)
--- NOTE | 2024-02-17 08:17 | EKG12_ITS ---
Test Reason : Blood Pressure : / mmHG Vent. Rate : 056 BPM Atrial Rate : 056 BPM P-R Int : 142 ms QRS Dur : 086 ms QT Int : 410 ms P-R-T Axes : 017 000 -02 degrees QTc Int : 395 ms Sinus bradycardia Minimal voltage criteria for LVH, may be normal variant ( R in aVL ) Inferior infarct , age undetermined Abnormal ECG Confirmed by TIA RAYO, ASHLEY ([id number]), web content editor LESTER RAM ([id number]) on 02/20/2024 6:32:43 AM Referred By: Sari Martin Confirmed By:CHRISTINA WEBER MD
--- NOTE | 2024-02-17 08:17 | US_ITS ---
STUDY: ABDOMINAL ULTRASOUND - RIGHT UPPER QUADRANT REASON FOR VISIT: Male, 33 years old Right upper quadrant pain TECHNIQUE: Ultrasound evaluation of the right upper quadrant was performed with real-time and static mendoza-scale imaging. TECHNICAL QUALITY: Adequate. COMPARISON: Comparison is made with prior study of October 15, 2023. FINDINGS: Liver: The liver measures 17.5 cm. There is increased echogenicity consistent with fatty infiltration. The bile ducts are within normal limits. There is hepatic color flow. The direction of portal flow is hepatopetal. There is no demonstrated mass lesion. Gallbladder: Normal distended gallbladder. The gallbladder wall measures 2.4 mm. There is a negative sonographic Stephens''s sign. There is no pericholecystic fluid. There are no gallstones. Small amount of sludge is seen in the gallbladder lumen. Common Bile Duct (C.B.D.): The common bile duct measures 3.7 mm. Pancreas: Normal size of the head, body and tail of the pancreas. There is normal echogenicity of the pancreas. There is no demonstrated pancreatic mass or cyst. Right Kidney: Normal size of the right kidney. The right kidney measures 14.4 cm x 6.1 cm x 6.1 cm. Normal renal cortex. The right cortex measures 1.3 cm. There is no demonstrated renal mass or cyst. There is no right hydronephrosis. US/Gallbladder IMPRESSION: Fatty infiltration of the liver. Small amount of sludge in the gallbladder lumen. Electronically Signed: Bhavin Lovelace MD at 10:06 EDT ,
--- NOTE | 2024-02-17 08:22 | HP.PCM_ITS ---
[facility] Date of Service: 02/17/24 Chief Complaint: Abdominal pain HPI Narrative FRITZ MORSE, is a 33 M who presents with right upper quadrant pain that woke him from sleep at 0300 AM this morning. Patient notes his symptoms were associated with nausea, vomiting. He described the pain as a sharp, stabbing pain that radiated into his mid back on the right side. Patient notes he had a similar attack on Friday. He notes ongoing right upper quadrant pain since September of this year. Patient has been evaluated by gastroenterology, Dr. García, who performed an upper scope on 02/03/24 demonstrating non-severe candidiasis esophagitis with no bleeding, chronic gastritis and erythematous duodenopathy. Pathology demonstrated chronic inflammation of the duodenum, mild gastritis, and superficial acute inflammation of the esophagus consistent with a few fungal organisms consistent with Trisha species. Patient was placed on pantoprazole, lansoprazole, carafate and dicyclomine. Patient notes he continues to have right upper quadrant pain. He notes he to be scheduled for a colonoscopy later this year as well. Patient notes having pot roast for dinner last night with corn and mashed potatoes. He notes at 0300 the right upper quadrant pain woke him from sleep. He then proceeded to the ED. Patient denies any previous history of abdominal surgeries. He notes the only previous surgery was his wisdom teeth. He denies any difficulties with anesthesia. He denies any cardiac or pulmonary medical history. He is not on any blood thinners or weight loss medications. He is a smoker, however quit cold turkey as of today. He no longer consumes alcohol as of 2 years ago. He denies any illicit drug use. He notes a history of [address] scan ab/pel obtained in the ED demonstrating mild gallbladder wall thickening and/or pericholecystic fluid. WBC 9.5, Hgb 16.5, Hct 46.8, Plt 273. Liver enzymes T bili 0.50, AST 49, ALT 129, Alk Phos 128. [facility] Medical History Wears contact lenses Wears glasses Restless legs Back pain Abdominal pain Leg cramps History of pain when walking Smoker Renal agenesis, unilateral Home Medications ?Medication ?Instructions ?Recorded ?Last Taken ?Type pantoprazole 40 mg tablet,delayed 40 mg PO DAILY #60 tabs 01/06/24 02/03/24 Rx release dicyclomine 10 mg capsule 10 mg PO BID PRN PRN abdominal pain 02/02/24 Unknown History lansoprazole 30 mg capsule,delayed 30 mg PO QHS 02/02/24 Unknown History release sucralfate 1 gram tablet 1 g PO QAC #90 tabs 02/10/24 Unknown Rx Allergy/AdvReac Type Severity Reaction Status Date / Time No Known Allergies Allergy Verified 02/15/24 17:54 Surgical History H/O wisdom tooth extraction Social History Smoking Status: Current every day smoker tobacco type: cigarettes and e- cigarettes alcohol intake: former details: prior alcohol issues substance use type: former substance user and marijuana well-balanced diet: daily or most days what type of physical activity do you participate in: none seatbelt use: always do you feel safe at home: Yes ROS Constitutional Constitutional: Reports systems reviewed and no addt'l complaints, except as documented Eyes Eyes: Reports systems reviewed and no addt'l complaints, except as documented ENT HEENT: Reports systems reviewed and no addt'l complaints, except as documented Cardiovascular Cardiovascular: Reports systems reviewed and no addt'l complaints, except as documented Respiratory/Chest Respiratory/Chest: Reports systems reviewed and no addt'l complaints, except as documented Gastrointestinal Gastrointestinal: Reports systems reviewed and no addt'l complaints, except as documented Genitourinary Genitourinary: Reports systems reviewed and no addt'l complaints, except as documented Musculoskeletal Musculoskeletal: Reports systems reviewed and no addt'l complaints, except as documented Integumentary Integumentary: Reports systems reviewed and no addt'l complaints, except as documented Neurologic Neurologic: Reports systems reviewed and no addt'l complaints, except as documented Psychiatric Psychiatric: Reports systems reviewed and no addt'l complaints, except as documented Endocrine Endocrinology: Reports systems reviewed and no addt'l complaints, except as documented Hematologic/Lymphatic Hematologic/Lymphatic: Reports systems reviewed and no addt'l complaints, except as documented Allergic/Immunologic Allergic/Immunologic: Reports systems reviewed and no addt'l complaints, except as documented Vital Signs Vital Signs Vital Signs: 02/17/24 05:51 02/17/24 05:55 02/17/24 06:55 Temperature 97.5 F L 97.5 F L 98 F Temperature Source Oral Oral Oral Pulse Rate 74 75 74 Respiratory Rate 22 H 18 18 Blood Pressure 154/105 H 154/105 H 148/68 H Blood Pressure Mean 121 121 94 Pulse Ox 100 100 98 Oxygen Delivery Method Room Air Room Air Room Air 02/17/24 08:16 Temperature 98.0 F Temperature Source Oral Pulse Rate 58 L Respiratory Rate 16 Blood Pressure 113/68 Blood Pressure Mean 83 Pulse Ox 100 Oxygen Delivery Method Room Air Weight Weight: 246 lb 14.684 oz Body Mass Index (BMI) 33.5 Physical Exam Const alert, oriented x3 and no apparent distress HEENT normocephalic and head/scalp atraumatic Eyes PERRL Neck full ROM Lymph Lymphatic: no lymphadenopathy noted Resp normal respiratory effort and clear to auscultation bilaterally Cardio regular rate and regular rhythm GI GI Narrative: Abdomen- soft, minimal tenderness in the RUQ upon deep palpation. Hypoactive bowel sounds. no CVA tenderness Back/Spine no CVA tenderness Extremity normal to inspection Skin no rashes or lesions noted Neuro no focal motor deficits and no sensory deficits noted Psych Appearance: grossly normal Attitude: calm Thought Process: normal thought process Results Lab / Micro Data 02/17/24 05:58 02/17/24 05:58 Labs: Laboratory Results - last 24 hr 02/17/24 05:58: WBC 9.5, RBC 5.27, Hgb 16.5, Hct 46.8, MCV 88.8, MCH 31.3, MCHC 35.3, RDW Std Deviation 39.5, RDW Coeff of Aziza 12.1, Plt Count 273, MPV 9.5, Immature Gran % (Auto) 0.300, Neut % (Auto) 69.0, Lymph % (Auto) 20.2, Barbour % (Auto) 6.9, Eos % (Auto) 3.1, Baso % (Auto) 0.5, Absolute Neuts (auto) 6.6, Absolute Lymphs (auto) 1.92, Nucleated RBC % 0, Sodium 139, Potassium 4.1, Chloride 107, Carbon Dioxide 26.0, Anion Gap 6, BUN 12, Creatinine 1.23, Estim Creat Clear Calc 112.45, Est GFR (MDRD) Af Amer 88, Est GFR (MDRD) Non-Af 73, B UN/Creatinine Ratio 9.8 L, Glucose 110 H, Calcium 9.6, Total Bilirubin 0.50, AST 49 H, ALT 129 H, Alkaline Phosphatase 128 H, Total Protein 7.9, Albumin 3.7, Globulin 4.2, Albumin/Globulin Ratio 0.9, Lipase 57 02/17/24 07:55: Urine Color Yellow, Urine Clarity Clear, Urine pH 6.5, Ur Specific Honor 1.005, Urine Protein 15 H, Urine Glucose (UA) Normal, Urine Ketones Negative, Urine Occult Blood Negative, Urine Nitrite Negative, Urine Bilirubin Negative, Urine Urobilinogen Normal, Ur Leukocyte Esterase 25 H, Urine RBC 0 SEEN, Urine WBC 0-5 SEEN, Ur Squamous Epith Cells 0 SEEN, Urine Bacteria 0 SEEN, Urine Mucus 0 SEEN Imaging Radiology Impression Abdomen/Pelvis CT 02/17/24 06:09 IMPRESSION: Findings suggest sequela of early acute cholecystitis. Electronically Signed: Ana Holm MD at 7:09 EDT Reading Location ID and State: [address] [place] [address] , Service support , Assessment & Plan Assessment/Plan (1) Acute cholecystitis: PLAN: I am seeing this patient in conjunction with Dr. Bearden. He will independently evaluate this patient. Patient is a 33 y/o M who presented following an acute episode of right upper quadrant sharp, stabbing pain radiating into his back associated with nausea, vomiting. CT scan demonstrated mild gallbladder wall thickening and pericholecystic fluid. He has been having ongoing right upper quadrant pain. I have discussed the CT scan with the patient and the plan to proceed with a right upper quadrant ultrasound. We will plan to admit the patient to med/surg floor. Dr. Bearden will plan to perform a laparoscopic cholecystectomy with intraoperative cholangiogram around 1530 pm today. Procedure details, risks and benefits have been explained to the patient. Patient has had the opportunity to ask and have questions answered. Patient verbally understands and agrees with the plan. Thank you for allowing us to participate in this patient's care. Charges/Coding Visit Charges OBSV E&M: 19602 Observ/hosp same date L2
--- NOTE | 2024-02-17 08:35 | NURSING ---
NO OLD EKG
[2024-02-17] MEDS: 0.9% Normal Saline (1000mL) 1,000 ML 100 ML IV (11:02)
--- NOTE | 2024-02-17 14:56 | PCM.PRE.AN2 ---
ASA Classification* ASA Classification ASA Classification: 2 Assessment & Plan Anesthesia* Anesthesia Assessment Anesthesia Assessment: Discussed sedation and/or anesthesia options, risks, benefits, and alternatives with patient/parents/legal guardian/POA. Questions invited. The patient/parents/legal guardian/POA seems to understand and agrees to proceed with anesthesia plan. Reviewed the physical assessment, medical history, allergy history and patient home medications list prior to surgery/procedure/anesthetic and documented any changes. Performed airway and anesthesia risk assessments. Anesthesia Type Anesthesia Type: General History Source History Obtained from:: Patient and Chart Anesthesia Focused Assessment* Temperature: 98.0 F Pulse Rate: 60 Blood Pressure: 111/88 Respiratory Rate: 16 Pulse Ox: 97 Oxygen Delivery Method: Room Air Airway Assessment Mouth opens: >3 cm Mallampati Score: I Teeth Condition: Intact Neck Range of motion (ROM): Full ROM Pertinent Findings EKG Pertinent Findings:: February 17, 2024. Sinus bradycardia 56 bpm. Minimal voltage criteria for left ventricular hypertrophy. Inferior infarct. Focused Labs Anesthesia Preop lab: CBC WBC 9.5 K/mm3 (4.4-11.0) 02/17/24 05:58 RBC 5.27 M/mm3 (4.6-6.2) 02/17/24 05:58 Hgb 16.5 g/dL (13.0-16.5) 02/17/24 05:58 Hct 46.8 % (40-54) 02/17/24 05:58 Plt Count 273 K/mm3 (150-450) 02/17/24 05:58 CHEMISTRY Potassium 4.1 mmol/L (3.5-5.1) 02/17/24 05:58 Sodium 139 mmol/L (136-145) 02/17/24 05:58 BUN 12 mg/dL (7-18) 02/17/24 05:58 Creatinine 1.23 mg/dL (0.70-1.30) 02/17/24 05:58 Glucose 110 mg/dL (74-106) H 02/17/24 05:58 TSH 3.00 uIU/mL (0.358-3.74) 01/30/24 10:45 COAG PT 12.6 SECONDS (11.7-14.9) 01/30/24 10:45 Pre-Assessment Diagnosis/Proposed Procedure Planned Operative Procedure(s): Laparoscopic cholecystectomy. 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 When Was Last Pacemaker Check QUESTION #4 FULL TEXT: You/Your Family Experience fever (hyperthermia) with Anesthesia Last Oral Intake Last Oral intake: Last Oral Intake NPO since 06:19 02/17/24 11:11 Meds taken in AM with sips of water? Meds patient instructed to take am of surgery Any additional information?: Yes Meds taken in AM with sips of water?: Yes PONV PONV - information technology data analyst: PONV - information technology data analyst Female HX of Motion Sickness HX of N/V After Surgery Non-Smoker Duration of Surgery greater than 60 minutes Number of Risk Factors PONV Score Height & Weight Height & Weight: Anesthesia: Height & Weight Height 6 ft 02/17/24 11:11 Weight: 111.6 kg 02/17/24 11:11 Body Mass Index (BMI) 33.3 02/17/24 11:11 Respiratory Assessment Respiratory Assessment - information technology data analyst: Respiratory Tract Infection Hx - information technology data analyst Hx Respiratory Tract Infection No 02/17/24 11:13 STOP Sleep Apnea STOP Sleep Apnea - information technology data analyst: STOP Sleep Apnea - information technology data analyst Hx Hypertension No 02/17/24 11:08 Hx Sleep Apnea No 02/17/24 11:08 CPAP BIPAP Do you snore loudly (louder No 02/17/24 11:08 than talking or can be heard Do you often feel tired/ Yes 02/17/24 11:08 fatigued/ sleepy during daytime? Has anyone observed you stop No 02/17/24 11:08 breathing during sleep? STOP Results Negative 02/17/24 11:08 QUESTION #5 FULL TEXT : Do you snore loudly (louder than talking or can be heard through closed doors)? Tobacco Use History Tobacco Use History - information technology data analyst: Tobacco Use History - information technology data analyst Tobacco Use Vapor 02/03/24 13:44 Smoking Status Current every day smoker 02/17/24 11:08 Hx Tobacco Use Yes: VAPES AND USES 02/17/24 11:08 CIGARETTES Years Smoking Packs Smoked per Day Smoking Cessation Date was within the last 15 years Hx Smoking Cessation Date Hx Smoking Cessation Counseling Hematologic Medial History Hematologic Hx - information technology data analyst: Hematologic Medical Hx - bacteriologist fishery Hx of Blood Transfusion No 02/17/24 11:08 Hx of Transfusion in last 3 No 02/17/24 11:08 Months Date of Last Transfusion (if within last 3 months) Ever experience any problems No 02/17/24 11:08 with transfusion(s)? Specify any problems Hx of Preganancy in last 3 N/A 02/17/24 11:08 Months Nurse Filling Out Transfusion HSMUCKER 02/17/24 11:08 & Questions: Date: 02/17/24 02/17/24 11:08 Time: 11:09 02/17/24 11:08 Patient unable to answer at this time (ie. confused, unrespo /Reproduction History /Reproductive History - information technology data analyst: /Reproductive Hx- information technology data analyst Hx Now Gestational Age (in weeks): EDC: Hx Hx Para Hx Section SAB No 02/17/24 11:13 Active Medications Active Medications: Current Medications Generic Name Dose Route Start Last Admin Trade Name Freq PRN Reason Stop Dose Admin Acetaminophen 650 mg 02/17/24 10:43 Acetaminophen 325 Mg Tablet PO Q6H PRN PRN Pain 1-10 Or Fever >100.7 Sodium Chloride 1,000 mls @ 100 mls/hr 02/17/24 10:43 02/17/24 14:10 IV 0 mls/hr .Q10H ANNA Infusion Sodium Chloride 250 mls @ 15 mls/hr 02/17/24 10:45 IV .[id number] PRN Additional IVPB Infusion Sodium Chloride 250 mls @ 15 mls/hr 02/17/24 10:45 IV .[id number] PRN Saline Flush Lactated Ringer's 1,000 mls @ 15 mls/hr 02/17/24 14:45 IV .Q48H ANNA Morphine Sulfate 2 - 4 mg 02/17/24 10:43 Morphine 2 Mg/Ml Syringe IV Q3H PRN PRN Pain Score 6-10 Ondansetron HCl 4 mg 02/17/24 10:43 Ondansetron 4 Mg/2 Ml Vial IV Q8H PRN PRN NAUSEA/VOMITING Oxycodone HCl 5 mg 02/17/24 10:43 Oxycodone 5 Mg Tablet PO Q4H PRN PRN Pain Score 4-10 Sodium Chloride 10 - 40 ml 02/17/24 10:45 0.9% Saline Lock 10 Ml Syringe IV UD PRN SALINE FLUSH PFSH Medical History (Updated 02/17/24 @ 07:[address] Flash Myers, DO) Wears contact lenses Wears glasses Restless legs Back pain Abdominal pain Leg cramps History of pain when walking Smoker Renal agenesis, unilateral Home Medications ?Medication ?Instructions ?Recorded ?Last Taken ?Type pantoprazole 40 mg tablet,delayed 40 mg PO DAILY #60 tabs 01/06/24 02/03/24 Rx release dicyclomine 10 mg capsule 10 mg PO BID PRN PRN abdominal pain 02/02/24 Unknown History lansoprazole 30 mg capsule,delayed 30 mg PO QHS 02/02/24 Unknown History release sucralfate 1 gram tablet 1 g PO QAC #90 tabs 02/10/24 Unknown Rx Allergy/AdvReac Type Severity Reaction Status Date / Time No Known Allergies Allergy Verified 02/17/24 14:23 Surgical History (Updated 02/17/24 @ 15:[address] Gerard Chavez MD) H/O esophagogastroduodenoscopy H/O wisdom tooth extraction Social History Smoking Status: Current every day smoker tobacco type: cigarettes and e-cigarettes alcohol intake: former details: prior alcohol issues substance use type: former substance user and marijuana well-balanced diet: daily or most days what type of physical activity do you participate in: none seatbelt use: always do you feel safe at home: Yes Review of Systems (Anesthesia) ROS Narrative System reviewed and no additional complaints, except as documented.
--- NOTE | 2024-02-17 15:30 | GALL_PTH ---
PATIENT: FRITZ MORSE LOC: PCU U#:[id number] AGE/SX: 33/M ROOM: [facility] RE02/17/[address]: Dr. Sumeet Bearden MD : 1990 BED: 1 DIS: 02/18/2024 SPEC #: [id number] RECD: 02/18/24 09:22 STATUS: SERENITY RELuci #: [id number] LUIS ARMANDO: 02/17/24 15:[address]: Sumeet Bearden DEPT: SURGICAL PATHOLOGY RECD BY: Naye Raymond ENTERED: 02/18/24 11:44 SP TYPE: SHANTELL BAUMAN DR: Dr. Arun Gonzales, DO Sari Martin PA-C Tissues: Gallbladder, NOS Procedures: Surgery Specimen Level III HEADER OPERATION: Laparoscopic cholecystectomy with IOC PRE-OP DIAGNOSIS: Acute cholecystitis TISSUE SUBMITTED: Gallbladder MICROSCOPIC DIAGNOSIS Gallbladder, cholecystectomy: Chronic eosinophilic cholecystitis and cholelithiasis. AM/mr 02/19/2024 MICROSCOPIC DESCRIPTION Slides are reviewed. GROSS DESCRIPTION Received is one container labeled with the patient's name and designated gallbladder. The specimen consists of a gallbladder measuring 9.0 cm in length and up to 3.0 cm in diameter. The external surface is pink-salgado, smooth and glistening for the most part. Focally it is granular, hemorrhagic and contains cautery artifact. The gallbladder contains thick green-yellow mucoid bile. Also present in the container is a brown round stone measuring 1.0 cm in greatest dimension. The mucosa is bile-stained and without any mass lesions. The gallbladder wall measures up to 0.5 cm in thickness. Bicycle Technician sections from the gallbladder and the cystic duct are submitted in one cassette. / SJ: 02/18/2024 TC:3 CPT: 65326
[2024-02-17] MEDS: Cefazolin 2 GM in 0.9% Normal Saline (100mL Bag) 100 ML IV (17:02)
[2024-02-17] MEDS: Bupivacaine Mpf 0.5% 30 ML VIAL (18:07)
--- NOTE | 2024-02-17 18:07 | OP.PCM_ITS ---
Report of Operation Date of Procedure: 02/17/24 Pre-Operative Diagnosis: Acute cholecystitis Post-Operative Diagnosis: Acute cholecystitis Surgery/Procedure Performed:: Laparoscopic cholecystectomy with cholangiograms Description of Surgical Findings:: Very inflamed gallbladder with a stone lodged in the neck. Normal IOC's Type of Anesthesia: General/Regional Specimen's removed: Gallbladder Estimated Blood Loss (mL): 20 Description of Procedure: After obtaining informed consent patient was brought back to the operating room. General anesthesia was induced. The abdomen was prepped and draped in usual sterile fashion. A small midline incision was made superior to the umbilicus and deepened to the level of fascia. The fascia was elevated and incised. Next the peritoneum was elevated and incised in the same fashion. Finger sweep was performed and the Srivastava trocar was placed into the abdomen. The balloon was inflated. The abdomen was inflated to 15 mmHg. Next a camera was introduced into the abdomen and the abdomen was inspected. Next under direct visualization three 5-mm ports were placed one subxiphoid and 2 subcostal. Next the gallbladder was elevated and retracted toward the right shoulder. The peritoneum was stripped from the gallbladder. The infundibulum was located and retracted laterally. Next the triangle of Calot was dissected and the cystic duct and cystic artery were identified. Cholangiograms were performed. The Hurtado clamp was used to clamp across the infundibulum and the catheter needle was inserted into the gallbladder. It was unable to flush as something was stuck in the cystic duct. Dissection was carried inferiorly and a stone was identified in the cystic duct. It was milked back and removed. This left to little gallbladder for the Hurtado and so a small radha was made in the right upper quadrant and the Ranfac catheter was placed into the abdomen. The catheter was then placed into the cystic duct and the clip was placed over it. Under fluoroscopy contrast was instilled into the gallbladder and the common duct, cystic duct as well as proximal hepatic ducts were identified. There was good filling of the duodenum. There were no filling defects noted in the common bile duct. The clip was removed as well as the catheter and the infundibulum was gras ped once more. Three hemolock clips were placed across the cystic duct. The cystic duct was then divided leaving 2 clips on the stump. The cystic artery was clipped and divided in the same fashion. The hook cautery was then used to take the gallbladder off of the gallbladder bed. Hemostasis was obtained. Gallbladder fossa was irrigated and no active bleeding or bile leakage was noted. Next the camera was introduced in the subxiphoid port. An Endopouch bag was placed through the umbilical port and the gallbladder was placed into it. The gallbladder was then removed through the umbilical incision. The camera was then reinserted through the umbilical port. The gallbladder fossa was inspected once more and noted to be hemostatic with no leaking bile. The abdomen was suctioned dry. The 5 mm ports were removed under direct visualization. The umbilical port was then removed and the air was removed from the abdomen. Next using an 0 Vicryl suture the umbilical fascia was closed in a [id number] fashion. The umbilical port site was irrigated local anesthetic was administered to all the incisions. All the incisions were closed with interrupted subcuticular 4-0 Monocryl sutures followed by Steri-Strips and dressings. The patient was awoken and taken to PACU in stable condition. Admit VTE Documentation VTE Mechan Device Prophylaxis: SCD's
--- NOTE | 2024-02-17 18:07 | RAD_ITS ---
PROCEDURE: FLUOROSCOPIC GUIDED CHOLANGIOGRAM/PANCREATOGRAPHY DATE OF EXAMINATION: February 17, 2024 INDICATION: Male, 33 years old. Pain Laparoscopic Cholecystectomy. PHYSICIAN: Sumeet Bearden MD FLUOROSCOPY TIME (if supplied): ( ) minutes/seconds RADIATION DOSAGE (If Supplied By Facility): CTDIvol = ( ) mGy, DLP = ( ) mGycm CONSENT: The risks, benefits and alternatives to the procedure were explained to the patient, and the patient agreed to the procedure and signed the consent. PROCEDURE/TECHNIQUE: (All elements of maximal sterile barrier technique followed, including US elements as applicable) The risks, benefits, and alternatives to the procedure were explained to patient, and the patient agreed to the procedure and signed a consent form for the procedure. Comparison study: Right upper quadrant ultrasound dated February 17, 2024 FINDINGS: Intraoperative surgical instrumentation seen in the amelia hepatis region and overlying the liver. Contrast outlines the common bile duct and the main right and left intrahepatic biliary ducts. The cystic duct is patent. The gallbladder is not seen consistent with recent cholecystectomy. No filling defects are identified. There is no biliary ductal dilatation. There is free passage into the duodenum. No extraluminal leakage of contrast is seen outside of the biliary ducts or bowel. RAD/Cholangiogram/ O R,Initial IMPRESSION: 1. Status post cholangiogram Electronically Signed: Alfonso Davenport MD at 19:54 EDT Reading Location ID and State: [facility] / [place] , Service support ,
--- NOTE | 2024-02-17 18:33 | PCM.POST.ANE ---
Anesthesia: Postop Eval I Current Vital Signs Temperature: 97.1 F Pulse Rate: 61 Blood Pressure: 128/85 Respiratory Rate: 19 Pulse Ox: 98 Oxygen Delivery Method: Room Air Assessment Airway patent: Yes Spontaneous unlabored respirations: Yes Mental status: Awake nausea: No Vomiting: No Anesthesia Complication: No Fluid Hydration Crystalloid volume administer (ml): 650 Total IV fluid infused: 650 Progress Note Anesthesia document: Postop Eval 1 completed: Yes
--- NOTE | 2024-02-17 18:39 | POSTOPAN2_ITS ---
Anesthesia Postop Eval I Sum Postop Eval Completion status Anesthesia document: Postop Eval 1 completed: Yes Anesthesia Postop Eval I Summary Anesthesia Postop Eval I Summary: Anesthesia Postop Eval I: Assessment Summary Airway patent Yes 02/17/24 18:37 SPUD [email or web address] Spontaneous unlabored Yes 02/17/24 18:37 SPUD DRILLER.CSIR respirations Mental status Awake 02/17/24 18:37 SPUD [email or web address].CSIR nausea No 02/17/24 18:37 SPUD DRILLER.CSIR Vomiting No 02/17/24 18:37 SPUD DRILLER.CSIR Anesthesia Postop Eval I: Fluid Summary Crystalloid volume administer 650 02/17/24 18:37 SPUD DRILLER.CSIR (ml) Colloids volume administered ( ml) Blood Product volume administered (ml) Total IV fluid infused 650 02/17/24 18:37 SPUD [email or web address].CSIR Anesthesia Postop Eval I: Summary Notes Anesthesia Complication No 02/17/24 18:37 SPUD [email or web address].CSIR Anesthesia Complication Comment: Post-operative progress note Anesthesia: Postop Eval II Evaluation Mental status: Awake Pain Level: 0 nausea: No Vomiting: No
--- NOTE | 2024-02-17 18:39 | PCM.POSTANE2 ---
Anesthesia Postop Eval I Sum Postop Eval Completion status Anesthesia document: Postop Eval 1 completed: Yes Anesthesia Postop Eval I Summary Anesthesia Postop Eval I Summary: Anesthesia Postop Eval I: Assessment Summary Airway patent Yes 02/17/24 18:37 DISEASE INTERVENTION SPECIALIST.CSIR Spontaneous unlabored Yes 02/17/24 18:37 DISEASE INTERVENTION SPECIALIST.CSIR respirations Mental status Awake 02/17/24 18:37 DISEASE INTERVENTION SPECIALIST.CSIR nausea No 02/17/24 18:37 DISEASE INTERVENTION SPECIALIST.CSIR Vomiting No 02/17/24 18:37 DISEASE INTERVENTION SPECIALIST.CSIR Anesthesia Postop Eval I: Fluid Summary Crystalloid volume administer 650 02/17/24 18:37 DISEASE INTERVENTION SPECIALIST.CSIR (ml) Colloids volume administered ( ml) Blood Product volume administered (ml) Total IV fluid infused 650 02/17/24 18:37 DISEASE INTERVENTION SPECIALIST.CSIR Anesthesia Postop Eval I: Summary Notes Anesthesia Complication No 02/17/24 18:37 DISEASE INTERVENTION SPECIALIST.CSIR Anesthesia Complication Comment: Post-operative progress note Anesthesia: Postop Eval II Evaluation Mental status: Awake Pain Level: 0 nausea: No Vomiting: No
[2024-02-17] MEDS: 0.9% Normal Saline (1000mL) 1,000 ML 40 ML IV (22:21)
[2024-02-17] MEDS: oxyCODONE 5 MG Tablet PO (22:21)
[2024-02-18 00:05] VITALS: BP 116/74; PULSE 61; RESP 16; TEMP 36.6; O2SAT 93
[2024-02-18 02:05] VITALS: BP 121/88; PULSE 62; RESP 16; TEMP 36.6; O2SAT 94
[2024-02-18 04:15] VITALS: BP 125/76; PULSE 100; RESP 14; TEMP 36.4; O2SAT 93
[2024-02-18 07:27] LABS: Absolute Lymphocyte Count 1.21 X10^3/uL (0.83-4.51); Basophil# 0.01 X10^3/uL; Basophil% 0.1 % (0-1); Hematocrit 46.9 % (40-54); Lymphocyte # 1.21 X10^3/ul (0.83-4.51); Lymphocyte % 7.6 % (19-41); Mean Corp Hgb Conc 34.1 g/dL (32-36); Mean Corpuscular Hgb 30.7 pg (27.0-32.0); Mean Corpuscular Volume 89.8 fL (80-94); Mean Platelet Vol. 9.5 fl (6.2-12.0); Monocyte# 0.56 X10^3/uL; Monocyte% 3.5 % (0-10); NRBC Flagged by Analyzer 0 % (0-5); Neutrophil # 13.97 X10^3/uL (2.7-7.7); Neutrophil % 88.3 % (47-70); Platelet Count 276 K/mm3 (150-450); RBC Distribution Width CV 12.1 % (11.6-14.6); RBC Distribution Width SD 39.8 fl (35.1-43.9); Red Blood Count 5.22 M/mm3 (4.6-6.2); White Blood Count 15.8 K/mm3 (4.4-11.0)
[2024-02-18 07:29] VITALS: BP 138/92; PULSE 53; RESP 14; TEMP 36.7; O2SAT 96
[2024-02-18] MEDS: Acetaminophen 325 MG Tablet 650 MG PO (08:02)
--- NOTE | 2024-02-18 08:10 | PCM.PN.SRG ---
Subjective Subjective Patient evaluated resting comfortably in bed. Patient denies any abdominal pain/discomfort. He denies any nausea, vomiting. He notes feeling much improved. Objective Data Objective Data Vital Signs: Vital Signs Temp Pulse Resp BP Pulse Ox O2 Del Method 98.1 F 53 L 14 138/92 H 96 Room Air 02/18/24 07:29 02/18/24 07:29 02/18/24 07:29 02/18/24 07:29 02/18/24 07:29 02/18/24 07:55 Oxygen Delivery Method Room Air Weight: 246 lb 0.574 oz Body Mass Index (BMI) 33.3 Intake & Output: Intake and Output for Last 24 Hours 02/16/24 02/17/24 02/18/24 23:59 23:59 23:59 Intake Total 1473.33 / 1473.33 364.67 / 364.67 Balance 1473.33 / 1473.33 364.67 / 364.67 Lab / Micro Data 02/18/24 06:36 02/17/24 05:58 Labs: Laboratory Results - last 24 hr 02/17/24 07:55: Urine RBC 0 SEEN, Urine WBC 0-5 SEEN, Ur Squamous Epith Cells 0 SEEN, Urine Bacteria 0 SEEN, Urine Mucus 0 SEEN 02/18/24 06:36: WBC 15.8 H, RBC 5.22, Hgb 16.0, Hct 46.9, MCV 89.8, MCH 30.7, MCHC 34.1, RDW Std Deviation 39.8, RDW Coeff of Aziza 12.1, Plt Count 276, MPV 9.5, Immature Gran % (Auto) 0.500, Neut % (Auto) 88.3 H, Lymph % (Auto) 7.6 L, Giles % (Auto) 3.5, Eos % (Auto) 0.0, Baso % (Auto) 0.1, Absolute Neuts (auto) 14.0 H, Absolute Lymphs (auto) 1.21, Nucleated RBC % 0 Radiography Diagnostic Testing: Radiology Impression Gallbladder Ultrasound 02/17/24 08:17 IMPRESSION: Fatty infiltration of the liver. Small amount of sludge in the gallbladder lumen. Electronically Signed: Bhavin Lovelace MD at 10:06 EDT , Cholangiogram 02/17/24 18:07 IMPRESSION: 1. Status post cholangiogram Electronically Signed: Alfonso Davenport MD at 19:54 EDT Reading Location ID and State: [address] [place] [address] , Service support , Physical Exam GI GI Narrative: Abdomen- soft, minimal tenderness at the incision sites. Incisions c/d/i. No erythema or infection noted. Assessment & Plan Assessment/Plan (1) Acute cholecystitis: PLAN: I am following this patient in conjunction with Dr. Bearden. He has independently evaluated this patient. Labs reviewed Patient progressing very well Increase diet to regular this morning Ready for discharge around noon. Will call to check in on patient around noon. Charges/Coding Visit Charges Inpatient E&M: 92160 Subs Hosp L1 (post-op)
--- NOTE | 2024-02-18 08:20 | PCM.DC ---
Discharge Instructions Diet Discharge Diet: Light diet - advance as tolerated Activity Discharge Activity: May Not Drive (3-5 days or while taking narcotic pain medications) and May Shower Lifting Restrictions: No lifting greater than 20 pounds for 2 weeks. Dressing / Incision Call your doctor if your incision/area has: Continuous Slow Oozing, Sudden Increased Bleeding, Increased Pain/ Swelling, Increased Redness, Foul Smelling Discharge and Swelling at the incision site Call your doctor if you observe: Fever of 101 or Higher Suture Line Care: Avoid Pulling/Pushing and Avoid Pinching/Bending Remove Dressing in: 2 days (Remove plastic dressings from incisions) Cleanse incision/area with: Soap & Water Additional Dressing/Incision Instructions:: Remove steri-strips (white tape strips) in 1 week Follow Up Care Please Follow Up With: Sumeet Bearden MD When: Please contact our office at [phone], option #2 to schedule a follow-up Test Results: Test results from this visit will be discussed in further detail at your follow-up appointment, if applicable. Discharge Plan Admission Admit Date/Time: 02/17/24 08:08 Primary Reason for Your Visit: Acute cholecystitis Attending Provider: Sumeet Bearden Primary Care Provider: Arun Gonzales Instructions Additional Instructions / Restrictions: Cholecystectomy Diet ? Start light with soups and soft bland foods. You may advance diet as tolerated. Activity ? You may drive in 3-5 days but not while taking narcotic pain medication. ? I encourage walking. You may go up steps, one at a time. ? Do not swim or use hot tubs for 2 weeks. ? For comfort, you may use warm compresses or ice as needed for 15-20 minutes at a time. Lifting ? You may lift up to 20 pounds for the first 2 weeks. No strenuous exercise for 4 weeks from surgery Dressings/Incision ? You may shower OVER your plastic dressings ? Do NOT tub bathe for 1 week ? Leave plastic dressings on for 2 days. ? When plastic dressings are removed, you will find steri strips. It is okay to continue showering with them in place, pat them dry. ? You may remove steri-strips after 1 week. We recommend getting them soaking wet for easier removal. Medications ? Anesthesia used during surgery and pain medications may cause constipation. I recommend initiating on the day of surgery a fiber supplement like, Metamucil, Citrucel, FiberCon, Benefiber, or a generic form of these medications. 1 heaping tablespoon in water daily. You may continue to utilize any bowel regimen or oral laxatives that you routinely take. ? As long as you are not intolerant to Tylenol, acetaminophen, ibuprofen, Motrin, Advil, Aleve, or similar medications, I would recommend transitioning to these hodq-hbs-espejgo medicines as soon as possible instead of continued use of narcotic pain medication. Follow up ? You should call [facility] soon after surgery, at [phone] option 1 to make a follow up appointment for 10-14 days after your surgery. Discharge Orders/Prescriptions Prescriptions: New acetaminophen 325 mg Tablet 650 mg PO Q6H PRN PRN (Reason: Pain 1-10 Or Fever >100.7) Qty: 0 0RF oxycodone 5 mg Tablet 5 mg PO Q6H PRN PRN (Reason: Pain Score 4-10) 3 Days Qty: 10 0RF Continued pantoprazole 40 mg tablet,delayed release (DR/EC) 40 mg PO DAILY Qty: 60 0RF lansoprazole 30 mg capsule,delayed release(DR/EC) 30 mg PO QHS dicyclomine 10 mg capsule 10 mg PO BID PRN PRN (Reason: abdominal pain) sucralfate 1 gram tablet 1 g PO QAC Qty: 90 0RF Referrals / Follow Up: Arun Gonzales DO [Primary Care Provider] - Sari Martin PA-C [Med Staff - [facility]] - (Please call our office to schedule an appointment for 10-14 days following your surgery) Disposition Disposition (needs filled in before D/C Order can be placed): Home, Self Care
[2024-02-18 08:40] LABS: ALB/GLOB Ratio 0.8 RATIO (0.9-2.4); AST(SGOT) 55 U/L (15-37); Alanine Aminotransfer ALT/SGPT 130 U/L (16-61); Albumin, Serum 3.5 g/dL (3.2-5.0); Alkaline Phosphatase 120 U/L (45-117); Anion Gap 5 (5-15); BUN 12 mg/dL (7-18); BUN/Creat Ratio 11.3 RATIO (10-20); Calcium,Total 9.9 mg/dL (8.5-10.1); Chloride 106 mmol/L (98-107); Creatinine, Serum 1.06 mg/dL (0.70-1.30); EST Glomerular Filtration Rate 87 mL/min (>60); Est Glom Filt Rate - Afr Amer 105 mL/min (>60); Estimated Creatinine Clearance 130.25 ml/min; Globulin 4.3 g/dL (2.2-4.2); Glucose 135 mg/dL (74-106); Potassium 4.1 mmol/L (3.5-5.1); Protein, Total 7.8 g/dL (6.4-8.2); Sodium Level 137 mmol/L (136-145)
--- NOTE | 2024-02-18 09:45 | PHA.DC.MC.R ---
Pharmacy [facility] Service has performed discharge medication reconciliation and counseling for this patient. 1. ACETAMINOPHEN 650MG PO Q6H PRN PAIN 2. OXYCODONE 5MG PO Q6H PRN PAIN The patient's discharge medication list was reviewed for discrepancies and discrepancies were resolved. The patient was counseled on the following discharge medications and changes in medications for homegoing were reviewed. The Reason for Use, instructions for use, and potential side effects were reviewed for all new medications. The patient's questions regarding all of their medications were answered. The patient was able to verbally demonstrate an understanding of their discharge medications. Medications at Discharge Home Medications pantoprazole 40 mg tablet,delayed release 40 mg PO DAILY reflux #60 tabs 01/06/24 dicyclomine 10 mg capsule 10 mg PO BID PRN PRN abdominal pain 02/02/24 sucralfate 1 gram tablet 1 g PO QAC stomach #90 tabs 02/10/24 acetaminophen 325 mg tablet 650 mg (2 x 325 mg) PO Q6H PRN PRN Pain 1-10 Or Fever >100.7 #0 tabs 02/18/24 oxycodone 5 mg tablet 5 mg PO Q6H PRN PRN Pain Score 4-10 3 days #10 tabs 02/18/24
--- NOTE | 2024-02-18 10:03 | CASEMGMT ---
Patient has order for discharge. RN CM in to discuss needs at discharge. Patient denies needs or help at discharge. Patient had no further questions or concerns.
== END 2024-02-18 08:31 | disposition home or self-care (01) ==
LOC: ED 07:25 → PCU 10:25
PROVIDERS: Admitting Provider Surgery; Emergency Provider Emergency Medicine; PCP Family Medicine; Referring Provider Physician Assistant; Visit Provider Surgery
PROC: (CPT 47610; principal; 2024-02-17 15:10)
DX: K80.12 Calculus of gallbladder with acute and chronic cholecystitis without obstruction (principal); F17.210 Nicotine dependence, cigarettes, uncomplicated; F17.290 Nicotine dependence, other tobacco product, uncomplicated
CPT/HCPCS: 47563; 00790; 36415; 74177; 74300; 76000; 76705; 80053; 81001; 83690; 85025; 88304; 93005; 96365; 96366; 96375; 99221; 99284; J7030; J7120; Q9967; A4216; G0378; J2405

== ENCOUNTER 2024-03-09 11:44 | Day surgery (SDC) | payer BC, SELFPAY ==
[2024-03-09] VITALS (9 sets, daily range): BP systolic 91–108; BP diastolic 68–80; PULSE 69–82; RESP 16–18; TEMP 36.4–36.6; O2SAT 16–99; BMI 32.5
[2024-03-09] MEDS: Lactated Ringers 1,000 ML 15 ML IV (12:32)
--- NOTE | 2024-03-09 12:55 | PCM.PRE.AN2 ---
ASA Classification* ASA Classification ASA Classification: 2 Assessment & Plan Anesthesia* Anesthesia Assessment Anesthesia Assessment: Discussed sedation and/or anesthesia options, risks, benefits, and alternatives with patient/parents/legal guardian/POA. Questions invited. The patient/parents/legal guardian/POA seems to understand and agrees to proceed with anesthesia plan. Reviewed the physical assessment, medical history, allergy history and patient home medications list prior to surgery/procedure/anesthetic and documented any changes. Performed airway and anesthesia risk assessments. Anesthesia Type Anesthesia Type: MAC History Source History Obtained from:: Patient and Chart Anesthesia Focused Assessment* Temperature: 97.5 F Pulse Rate: 75 Blood Pressure: 102/72 Respiratory Rate: 18 Pulse Ox: 99 Oxygen Delivery Method: Room Air Airway Assessment Mouth opens: >3 cm Mallampati Score: II Teeth Condition: Intact Neck Range of motion (ROM): Full ROM Focused Labs Anesthesia Preop lab: CBC WBC 15.8 K/mm3 (4.4-11.0) H 02/18/24 06:36 RBC 5.22 M/mm3 (4.6-6.2) 02/18/24 06:36 Hgb 16.0 g/dL (13.0-16.5) 02/18/24 06:36 Hct 46.9 % (40-54) 02/18/24 06:36 Plt Count 276 K/mm3 (150-450) 02/18/24 06:36 CHEMISTRY Potassium 4.1 mmol/L (3.5-5.1) 02/18/24 06:36 Sodium 137 mmol/L (136-145) 02/18/24 06:36 BUN 12 mg/dL (7-18) 02/18/24 06:36 Creatinine 1.06 mg/dL (0.70-1.30) 02/18/24 06:36 Glucose 135 mg/dL (74-106) H 02/18/24 06:36 TSH 3.00 uIU/mL (0.358-3.74) 01/30/24 10:45 COAG PT 12.6 SECONDS (11.7-14.9) 01/30/24 10:45 Pre-Assessment Diagnosis/Proposed Procedure Planned Operative Procedure(s): COLONOSCOPY Anesthesia History Anesthesia History - head transfer clerk: Anesthesia History - head transfer clerk Hx Hospitalization Yes: 02/17/2024 [facility] 03/04/24 11:14 Any Problems With Anesthesia No 03/04/24 11:14 Cholinesterase deficiency No 03/04/24 11:14 You/Your Family Experience No 03/04/24 11:14 fever (hyperthermia) with Relationship Recent Exposure to Contagious No 03/09/24 12:33 Disease Does patient have nerve No 03/04/24 11:14 stimulator Patient instructed to have device shut off --Does patient have Pacemaker No 03/09/24 12:33 or ICD? When Was Last Pacemaker Check QUESTION #4 FULL TEXT: You/Your Family Experience fever (hyperthermia) with Anesthesia Last Oral Intake Last Oral intake: Last Oral Intake NPO since 09:00 03/09/24 12:33 Meds taken in AM with sips of No 03/09/24 12:33 water? Meds patient instructed to take am of surgery Any additional information?: Yes NPO since: 09:00 (Patient finished prep at 9 AM.) PONV PONV - head transfer clerk: PONV - head transfer clerk Female No 03/04/24 11:14 HX of Motion Sickness No 03/04/24 11:14 HX of N/V After Surgery No 03/04/24 11:14 Non-Smoker No 03/04/24 11:14 Duration of Surgery greater No 03/04/24 11:14 than 60 minutes Number of Risk Factors PONV Score Height & Weight Height & Weight: Anesthesia: Height & Weight Height 6 ft 03/09/24 12:33 Weight: 108.681 kg 03/09/24 12:33 Body Mass Index (BMI) 32.5 03/09/24 12:33 Respiratory Assessment Respiratory Assessment - head transfer clerk: Respiratory Tract Infection Hx - head transfer clerk Hx Respiratory Tract Infection No 03/04/24 11:14 STOP Sleep Apnea STOP Sleep Apnea - head transfer clerk: STOP Sleep Apnea - head transfer clerk Hx Hypertension No 03/04/24 11:14 Hx Sleep Apnea No 03/04/24 11:14 CPAP BIPAP Do you snore loudly (louder No 03/04/24 11:14 than talking or can be heard Do you often feel tired/ No 03/04/24 11:14 fatigued/ sleepy during daytime? Has anyone observed you stop No 03/04/24 11:14 breathing during sleep? STOP Results Negative 03/04/24 11:14 QUESTION #5 FULL TEXT : Do you snore loudly (louder than talking or can be heard through closed doors)? 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 Specify any problems Hx of Preganancy in last 3 N/A 03/04/24 11:14 Months Nurse Filling Out Transfusion VCHRISTIN 03/04/24 11:14 & Questions: Date: 03/04/24 03/04/24 11:14 Time: 11:15 03/04/24 11:14 Patient unable to answer at this time (ie. confused, unrespo /Reproduction History /Reproductive History - head transfer clerk: /Reproductive Hx- head transfer clerk Hx Now No 03/04/24 11:14 Gestational Age (in weeks): EDC: Hx Hx Para Hx Section SAB No 03/04/24 11:14 Active Medications Active Medications: Current Medications Generic Name Dose Route Start Last Admin Trade Name Freq PRN Reason Stop Dose Admin Lactated Ringer's 1,000 mls @ 15 mls/hr 03/09/24 12:30 03/09/24 12:32 IV 15 mls/hr .Q48H ANNA Administration PFSH Medical History (Updated 02/23/24 @ 00:02 by Background Daemon) Wears contact lenses Wears glasses Restless legs Back pain Abdominal pain Leg cramps History of pain when walking Smoker Renal agenesis, unilateral Home Medications ?Medication ?Instructions ?Recorded ?Last Taken ?Type pantoprazole 40 mg tablet,delayed 40 mg PO DAILY reflux #60 tabs 01/06/24 03/08/24 Rx release dicyclomine 10 mg capsule 10 mg PO BID PRN PRN abdominal pain 02/02/24 Unknown History acetaminophen 325 mg tablet 650 mg (2 x 325 mg) PO Q6H PRN PRN 02/18/24 Unknown Rx Pain 1-10 Or Fever >100.7 #0 tabs sucralfate 1 gram tablet 1 g PO TID 03/04/24 03/08/24 History Allergy/AdvReac Type Severity Reaction Status Date / Time No Known Allergies Allergy Verified 03/09/24 12:31 Surgical History (Updated 03/04/24 @ 11:14 by Shy Witt) S/P laparoscopic cholecystectomy H/O esophagogastroduodenoscopy H/O wisdom tooth extraction Social History Smoking Status: Current every day smoker (Patient smoked today.) tobacco type: cigarettes and e-cigarettes alcohol intake: former details: prior alcohol issues substance use type: former substance user and marijuana well-balanced diet: daily or most days what type of physical activity do you participate in: none seatbelt use: always do you feel safe at home: Yes Review of Systems (Anesthesia) ROS Narrative System reviewed and no additional complaints, except as documented.
--- NOTE | 2024-03-09 13:00 | COLBX_PTH ---
PATIENT: FRITZ MORSE LOC: [facility] U#:[id number] AGE/SX: 33/M ROOM: RE03/09/[address]: Dr. Rodrigo García DO : 1990 BED: DIS: 03/09/2024 SPEC #: [id number] RECD: 03/09/24 18:02 STATUS: SERENITY LYLA #: [id number] LUIS ARMANDO: 03/09/24 13:[address]: Rodrigo García DEPT: SURGICAL PATHOLOGY RECD BY: Naye Raymond ENTERED: 03/10/24 07:48 SP TYPE: COLON BX MITUL DR: Dr. Arun Gonzales DO Tissues: A - Ileum, NOS B - COLON BIOPSY Procedures: Surgery Specimen Level IV HEADER OPERATION: Colonoscopy, biopsy PRE-OP DIAGNOSIS: Elevated LFT's, nausea, lower GI bleeding and intermittent diarrhea TISSUE SUBMITTED: A- Terminal ileum biopsy, B- Random colonic biopsy MICROSCOPIC DIAGNOSIS A. Terminal ileum, biopsy: Fragments of small intestinal mucosa, no pathologic diagnosis. B. Colon, random biopsy: Fragments of colonic mucosa, no pathologic diagnosis. SHARON/ 03/11/2024 MICROSCOPIC DESCRIPTION Slides are reviewed. GROSS DESCRIPTION A. Received in fixative is one container labeled with the patient's name and designated Terminal ileum biopsy. The specimen consists of two irregular fragments of light salgado soft tissue that in aggregate measure 0.8 x 0.4 x 0.1 cm. The specimen is totally submitted in one cassette. B. Received in fixative is one container labeled with the patient's name and designated Random colonic biopsy. The specimen consists of multiple irregular fragments of light salgado soft tissue that in aggregate measure 1.5 x 0.5 x 0.1 cm. The specimen is totally submitted in one cassette. 03/10/2024 TC:4 CPT:35979w9
--- NOTE | 2024-03-09 13:17 | PCM.HP.BLA ---
History and Physical Date of Admission: 03/09/24 FRITZ MORSE is a 33 M who presents to the office today for establishment with [facility]. He has been having episodes of abdominal pain, nausea/vomiting, sweating and headaches that awake him from his sleep. He has had these episodes once a month since June 2023. Pain has been in the RUQ and upper abdomen. He has presented to the ED on numerous occasions for these symptoms. He also complains of BRBPR each time he goes to the bathroom .He does have a hx of drinking alcohol but quit 2 years ago. Biochemical work up 01.06.24: Hgb 16.9, CA 10.3, AST 76, ALT 176, ALk PHOS 134 CT 10/15/23: 1. Fatty liver. 2. 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 The right kidney appears normal. 3. No acute pathology is otherwise identified. US 10.15.23 1. Echogenic partially visualized pancreas is nonspecific. Most of the pancreas is obscured. 2. Diffuse increased echogenicity throughout the liver without focal hepatic abnormality likely secondary to fatty infiltration. 3. No evidence of cholelithiasis or cholecystitis. ROS Const Constitutional: Positive for fatigue; No fever(s) or weight change ENT ENT: No difficulty swallowing Gastro GI: Positive for change in bowel habits and Blood in stool; No abdominal pain, belching, bloating, change in stool character, coffee ground emesis, constipation, cramping, diarrhea, heartburn, difficulty swallowing, feeling full early, excessive flatus, incontinent of stools, Vomiting blood/hematemesis, loose stools, Black,tarry stools, nausea/dyspepsia, pain with swallowing, vomiting or other Musc Musculoskeletal: Positive for back pain and stiffness; No joint pain Skin Skin: No yellowing of the eye or itchy eyes Psych Psychiatric: No anxiety and No depression Endo Endocrine: Positive for fatigue; No weight change Aller/Imm Allergy/Immunologic: No itchy eyes Galo/Lymp Hematologic/Lymphatic: No easy bleeding or easy bruising Exam Const General: cooperative and comfortable Nutritional Appearance: average body habitus and well nourished [facility] Head: normal to inspection Ears: hearing grossly normal bilaterally Nose: external nose normal Face and sinus: normal facial exam Mouth: oral mucosae normal Throat: posterior oropharynx normal Eyes General: appearance normal, both eyes and all related structures Neck Neck: normal visual inspection Chest Chest palpation & inspection: normal inspection of the chest and normal palpation of entire chest wall Resp Effort & Inspection: normal respiratory effort Auscultation: Bilateral: Clear to Auscultation Cardio Palpation: normal PMI Rate: regular rate Rhythm: regular rhythm GI Inspection: normal to inspection Auscultation: normal bowel sounds Percussion: normal to percussion Palpation: no hepatosplenomegaly Skin General: no rashes or lesions noted Neuro General: patient alert Extrem General: normal to inspection Psych Affect: normal affect Assessment and Plan Assessment and Plan (1) Elevated LFTs: Status: Acute Plan: Patient is here today to establish with [facility]. He has been having episodes of abdominal pain, n/v, and headache since Jun 2023. He has had elevated liver enzymes, fatty liver on US, and no signs of cholecystitis or cholelithiasis. He has a hx of alcohol use. Differential diagnosis includes acute hepatitis, autoimmune hepatitis, alcoholic cirrhosis, Cory disease, Duodenal or gastric ulcer -Will order blood work for acute hepatitis, autoimmune tests, copper, ceruloplasmin, CBC, CMP, ESR, CRP, cortisol -Prescribed dicyclomine for episodes of abdominal pain -Will order liver elastography -Scheduled for EGD to rule out gastric or duodenal ulcer -Will call patient with test results and go over further treatment plan (2) Nausea: Status: Acute Orders: (3) lower GI bleeding and intermittent diarrhea:L differential diagnosis does include ulcerative colitis, hemorrhoidal disease, anal fissure, diverticular disease. He will undergo colonoscopy with evaluation of his lower GI tract. He was explained alternatives, risk, benefits including not withstanding bleeding, infection, sepsis, perforation, need for emergent urgent . He will have an ASA of 3. I have examined the patient and the H&P has been reviewed. There are no clinical changes since date of exam. Ceruloplasmin Today R79.89 - Other specified abnormal findings of blood chemistry Hepatitis Panel Acute Today R79.89 - Other specified abnormal findings of blood chemistry Comprehensive Metabolic Profil Today R79.89 - Other specified abnormal findings of blood chemistry Copper, Serum or Plasma Today R79.89 - Other specified abnormal findings of blood chemistry CRP Today R79.89 - Other specified abnormal findings of blood chemistry Erythrocyte Sed Rate Today R79.89 - Other specified abnormal findings of blood chemistry Ferritin Today R79.89 - Other specified abnormal findings of blood chemistry Haptoglobin Today R79.89 - Other specified abnormal findings of blood chemistry Iron Binding Capacity,Total Today R79.89 - Other specified abnormal findings of blood chemistry CBC W/Diff, Automated Today R79.89 - Other specified abnormal findings of blood chemistry AFP, Tumor Marker Today R79.89 - Other specified abnormal findings of blood chemistry ANCA Today R79.89 - Other specified abnormal findings of blood chemistry Celiac Disease Profile Today R79.89 - Other specified abnormal findings of blood chemistry Anti-Mitochondrial AB Today R79.89 - Other specified abnormal findings of blood chemistry Stool Lactoferrin/WBC Today K58.9 - Irritable bowel syndrome without diarrhea Calprotectin, Stool Today R79.89 - Other specified abnormal findings of blood chemistry Pancreatic Elastase, Fecal Today R79.89 - Other specified abnormal findings of blood chemistry CORTISOL SERUM Today R11.0 - Nausea Thyroid Stim Hormone (TSH) Today R11.0 - Nausea Prothrombin Time w/INR Today R11.0 - Nausea Elastography Parenchyma/Organ Today R79.89 - Other specified abnormal findings of blood chemistry Medications: New dicyclomine 10 mg PO BID 30 caps 1RF
--- NOTE | 2024-03-09 13:43 | OP.CCLET_ITS ---
03/09/2024 Arun Gonzales Re : Colonoscopy procedure for Ty Babmario Dear Dr. Gonzales This procedure was performed on Saturday, March 09, 2024. My impressions and recommendations are as follows: Impressions : - Congested mucosa in the recto-sigmoid colon, in the sigmoid colon, in the descending colon and at the hepatic flexure. Biopsied. - Mild inflammation was found in the ileum secondary to ileitis. Biopsied. Recommendations : - Discharge patient to home. - Resume previous diet. - Continue present medications. - Await pathology results. - Repeat colonoscopy in 5 years for surveillance. My findings are described in the full procedure note, which is enclosed. If I can be of further assistance, please feel free to contact me at . Sincerely, Rodrigo Friend, 03/09/2024 1:43:09 PM This report has been signed electronically.
--- NOTE | 2024-03-09 13:43 | OP.COLON_ITS ---
Patient Name: Valente Jensen Procedure Date: 03/09/2024 1:17 PM Date of : 1990 Age: 33 Procedure: Colonoscopy Indications: Hematochezia Providers: Rodrigo García DO Medicines: Monitored Anesthesia Care Patient Profile: This is a 33 year old male. Refer to note in patient chart for documentation of history and physical. Last Colonoscopy: none. The patient's first colonoscopy is today. Complications: No immediate complications. Procedure: Pre-Anesthesia Assessment: - Prior to the procedure, a History and Physical was performed, and patient medications and allergies were reviewed. The patient is competent. The risks and benefits of the procedure and the sedation options and risks were discussed with the patient. All questions were answered and informed consent was obtained. Patient identification and proposed procedure were verified by the physician in the pre-procedure area. Mental Status Examination: alert and oriented. Airway Examination: normal oropharyngeal airway and neck mobility. Respiratory Examination: clear to auscultation. CV Examination: normal. Prophylactic Antibiotics: The patient does not require prophylactic antibiotics. Prior Anticoagulants: The patient has taken no anticoagulant or antiplatelet agents except for NSAID medication. ASA Grade Assessment: II - A patient with mild systemic disease. After reviewing the risks and benefits, the patient was deemed in satisfactory condition to undergo the procedure. The anesthesia plan was to use monitored anesthesia care (MAC). Immediately prior to administration of medications, the patient was re-assessed for adequacy to receive sedatives. The heart rate, respiratory rate, oxygen saturations, blood pressure, adequacy of pulmonary ventilation, and response to care were monitored throughout the procedure. The physical status of the patient was re-assessed after the procedure. After I obtained informed consent, the scope was passed under direct vision. Throughout the procedure, the patient's blood pressure, pulse, and oxygen saturations were monitored continuously. The Colonoscope was introduced through the anus and advanced to the cecum, identified by appendiceal orifice and ileocecal valve. The colonoscopy was performed without difficulty. The patient tolerated the procedure well. The quality of the bowel preparation was adequate. Scope In: 1:27:21 PM Scope Withdrawal Time 0 hours 10 minutes 43 seconds Scope Out: 1:39:38 PM Total Procedure Duration Time 0 hours 12 minutes 17 seconds Findings: The perianal and digital rectal examinations were normal. An area of mildly congested mucosa was found in the recto-sigmoid colon, in the sigmoid colon, in the descending colon and at the hepatic flexure. Biopsies were taken with a cold forceps for histology. Verification of patient identification for the specimen was done. Estimated blood loss was minimal. Patchy mild inflammation characterized by erosions and erythema was found in the terminal ileum. Biopsies were taken with a cold forceps for histology. Verification of patient identification for the specimen was done. Estimated blood loss was minimal. Internal hemorrhoids were found during retroflexion. The hemorrhoids were mild and Grade I (internal hemorrhoids that do not prolapse). Impression: - Congested mucosa in the recto-sigmoid colon, in the sigmoid colon, in the descending colon and at the hepatic flexure. Biopsied. - Mild inflammation was found in the ileum secondary to ileitis. Biopsied. Recommendation: - Discharge patient to home. - Resume previous diet. - Continue present medications. - Await pathology results. - Repeat colonoscopy in 5 years for surveillance. Procedure Code(s): --- Professional --- 27923, Colonoscopy, flexible; with biopsy, single or multiple CPT copyright 2021 [employer]. All rights reserved. The codes documented in this report are preliminary and upon prepared foods production team member review may be revised to meet current compliance requirements. Rodrigo García DO 03/09/2024 1:43:09 PM This report has been signed electronically. Number of Addenda: 0 Note Initiated On: 03/09/2024 1:17 PM
--- NOTE | 2024-03-09 13:48 | PCM.POST.ANE ---
Anesthesia: Postop Eval I Current Vital Signs Temperature: 97.5 F Pulse Rate: 82 Blood Pressure: 101/80 Respiratory Rate: 18 Pulse Ox: 97 Oxygen Delivery Method: Room Air Assessment Airway patent: Yes Spontaneous unlabored respirations: Yes Mental status: Asleep nausea: No Vomiting: No Anesthesia Complication: No Fluid Hydration Crystalloid volume administer (ml): 600 Total IV fluid infused: 600 Progress Note Anesthesia document: Postop Eval 1 completed: Yes
--- NOTE | 2024-03-09 16:31 | PCM.POSTANE2 ---
Anesthesia Postop Eval I Sum Postop Eval Completion status Anesthesia document: Postop Eval 1 completed: Yes Anesthesia Postop Eval I Summary Anesthesia Postop Eval I Summary: Anesthesia Postop Eval I: Assessment Summary Airway patent Yes 03/09/24 13:48 [email or web address] Spontaneous unlabored Yes 03/09/24 13:48 [email or web address] respirations Mental status Asleep 03/09/24 13:48 [email or web address] nausea No 03/09/24 13:48 [email or web address] Vomiting No 03/09/24 13:48 [email or web address] Anesthesia Postop Eval I: Fluid Summary Crystalloid volume administer 600 03/09/24 13:48 [email or web address] (ml) Colloids volume administered ( ml) Blood Product volume administered (ml) Total IV fluid infused 600 03/09/24 13:48 [email or web address] Anesthesia Postop Eval I: Summary Notes Anesthesia Complication No 03/09/24 13:48 [email or web address] Anesthesia Complication Comment: Post-operative progress note Anesthesia: Postop Eval II Evaluation Mental status: Awake and Calm Pain Level: 0 nausea: No Vomiting: No Complications Anesthesia Complication: No
== END 2024-03-09 14:35 | disposition home or self-care (01) ==
LOC: EN 11:46 → AC 11:47
PROVIDERS: PCP Family Medicine; Referring Provider Family Medicine; Visit Provider Internal Medicine Gastroenterology
PROC: 0DJD8ZZ Inspection of Lower Intestinal Tract, Via Natural or Artificial Opening Endoscopic (ICD-10-PCS; CPT 45378; principal; 2024-03-09 12:55)
DX: K92.2 Gastrointestinal hemorrhage, unspecified (principal); R79.89 Other specified abnormal findings of blood chemistry; K64.0 First degree hemorrhoids; R11.0 Nausea; K63.89 Other specified diseases of intestine
CPT/HCPCS: 45380; 88305; J7120; J2405

== ENCOUNTER → 2024-04-14 | Outpatient (CLI) | payer BC, SELFPAY ==
--- NOTE | 2024-04-14 09:22 | MRI_ITS ---
EXAM: MR Abdomen Without and With Intravenous Contrast CLINICAL INDICATION: 33 years old, Male; K63.3 - Ulcer of intestine TECHNIQUE: Multiplanar and multisequence MR images of the abdomen without and with intravenous contrast. CONTRAST: clariscan 22ml iv COMPARISON: No relevant prior studies available. FINDINGS: GI tract: Normal in caliber small bowel loops. Small bowel loops appear normal in course and caliber and distribution. No evidence of obstruction. Thickening of the transverse and descending colon colon probably due to underdistention. No pericolonic inflammatory changes are seen. Nonvisualization of the appendix. Lower thorax: Not included on this exam. Liver: Partially visualized. No focal lesion is seen in the visualized portions of the lower liver.. Gallbladder and bile ducts: Unremarkable. No gallstones. No gallbladder distention or wall edema. No intra- or extrahepatic biliary ductal dilation. Pancreas: No focal cystic or solid mass. Spleen: Normal size without focal cystic or solid mass. Adrenals: Unremarkable. No nodules. Kidneys and ureters: Absent left kidney. No right hydronephrosis. Intraperitoneal space: No ascites or other fluid collection. Vasculature: Abdominal aorta is non-dilated. Lymph nodes: No enlarged lymph nodes. MRI/Enterography Abd/Pel IMPRESSION: 1. Unremarkable small bowel loops without evidence of bowel obstruction. 2. Mild thickening of the transverse and descending colon likely due to underdistention. Colitis is less likely. Electronically Signed: Maurice Reilly MD at 13:12 EDT ,
[2024-04-14 09:45] VITALS: BP 137/73; PULSE 82; RESP 18; O2SAT 98; BMI 32.5
[2024-04-14] MEDS: 0.9% Saline Lock 10 ML Syringe IV (09:51)
[2024-04-14] MEDS: Glucagon 1 MG/ML Syringe IV (10:58)
[2024-04-14 11:17] VITALS: BP 113/98; PULSE 82; RESP 18; O2SAT 98
== END | disposition home or self-care (01) ==
PROVIDERS: PCP Family Medicine; Referring Provider Student in an Organized Health Care Education/Training Program; Visit Provider Student in an Organized Health Care Education/Training Program
DX: K63.3 Ulcer of intestine (principal)
CPT/HCPCS: 74183; 96374; A9575; A4216; J1610

== ENCOUNTER → 2024-04-29 | Outpatient (CLI) | payer BC, SELFPAY ==
[2024-04-29 13:14] LABS: Protein, Urine (Random) 21.6 mg/dL (<11.9); Protein:Creat Ratio 74 mg/g CRE (0-200)
== END | disposition home or self-care (01) ==
LOC: POLAB3 11:22
PROVIDERS: Visit Provider Internal Medicine Nephrology
DX: N18.2 Chronic kidney disease, stage 2 (mild) (principal)
CPT/HCPCS: 82570; 84156

== ENCOUNTER → 2024-04-30 | Outpatient (CLI) | payer BC, SELFPAY ==
[2024-04-30 11:34] LABS: Absolute Lymphocyte Count 1.61 X10^3/uL (0.83-4.51); Absolute Neutrophil Count 4.3 X10^3/uL (2.0-7.7); Basophil# 0.05 X10^3/uL; Basophil% 0.7 % (0-1); Eosinophil# 0.31 X10^3/uL; Eosinophils% 4.5 % (0-5); Hematocrit 46.9 % (40-54); Hemoglobin 15.9 g/dL (13.0-16.5); Lymphocyte # 1.61 X10^3/ul (0.83-4.51); Lymphocyte % 23.6 % (19-41); Mean Corp Hgb Conc 33.9 g/dL (32-36); Mean Corpuscular Hgb 30.1 pg (27.0-32.0); Mean Corpuscular Volume 88.8 fL (80-94); Mean Platelet Vol. 9.1 fl (6.2-12.0); Monocyte# 0.53 X10^3/uL; Monocyte% 7.8 % (0-10); NRBC Flagged by Analyzer 0 % (0-5); Neutrophil # 4.31 X10^3/uL (2.7-7.7); Neutrophil % 63.1 % (47-70); Platelet Count 271 K/mm3 (150-450); RBC Distribution Width CV 12.1 % (11.6-14.6); RBC Distribution Width SD 39.5 fl (35.1-43.9); Red Blood Count 5.28 M/mm3 (4.6-6.2); White Blood Count 6.8 K/mm3 (4.4-11.0)
[2024-04-30 11:55] LABS: ALB/GLOB Ratio 0.9 RATIO (0.9-2.4); AST(SGOT) 50 U/L (15-37); Alanine Aminotransfer ALT/SGPT 125 U/L (16-61); Albumin, Serum 3.6 g/dL (3.2-5.0); Alkaline Phosphatase 121 U/L (45-117); Anion Gap 5 (5-15); BUN 15 mg/dL (7-18); BUN/Creat Ratio 12.8 RATIO (10-20); Calcium,Total 9.3 mg/dL (8.5-10.1); Chloride 110 mmol/L (98-107); Creatinine, Serum 1.17 mg/dL (0.70-1.30); EST Glomerular Filtration Rate 77 mL/min (>60); Est Glom Filt Rate - Afr Amer 93 mL/min (>60); Globulin 3.8 g/dL (2.2-4.2); Glucose 109 mg/dL (74-106); Potassium 4.2 mmol/L (3.5-5.1); Protein, Total 7.4 g/dL (6.4-8.2); Sodium Level 140 mmol/L (136-145)
[2024-05-05 14:10] LABS: ACCA 36 units (0-90); ALCA 24 units (0-60); AMCA 0 units (0-100); gASCA 16 units (0-50)
== END | disposition home or self-care (01) ==
PROVIDERS: PCP Family Medicine; Referring Provider Student in an Organized Health Care Education/Training Program; Visit Provider Student in an Organized Health Care Education/Training Program
DX: K76.0 Fatty (change of) liver, not elsewhere classified (principal); K63.3 Ulcer of intestine
CPT/HCPCS: 36415; 80053; 83516; 85025; 86036; 86671

== ENCOUNTER 2024-05-28 07:48 | Outpatient (CLI) | payer BC, SELFPAY ==
[2024-05-26 12:31] LABS: Platelet Count 268 K/mm3 (150-450)
[2024-05-26 12:44] LABS: International Normalized Ratio 0.9; Prothrombin Time (Protime)PT. 12.6 SECONDS (11.7-14.9)
[2024-05-26 12:45] LABS: Partial Thromboplast Time 25.3 Seconds (24.1-36.2)
[2024-05-28] VITALS (10 sets, daily range): BP systolic 111–140; BP diastolic 67–90; PULSE 78–87; RESP 11–19; TEMP 36.5; O2SAT 93–98; BMI 32.5
--- NOTE | 2024-05-28 | LIVB_PTH ---
PATIENT: FRITZ MORSE LOC: CT U#:[id number] AGE/SX: 33/M ROOM: RE05/28/[address]: MELIZA العراقي : 1990 BED: DIS: 05/28/2024 SPEC #: [id number] RECD: 05/28/24 09:06 STATUS: SERENITY LYLA #: [id number] LUIS ARMANDO: 05/28/24 00:[address]: Hina Sampson DEPT: SURGICAL PATHOLOGY RECD BY: Naye Raymond ENTERED: 05/28/24 09:46 SP TYPE: LIVER BX OTHR DR: Dr. Arun Gonzales DO Tissues: Liver, NOS Procedures: PAS with Diastase (control) Trichrome (control) Special Stain Group I PAS Stain (control) Surgery Specimen Level V AFB Stain (control) GMS Stain (control) Retic (control) Iron Stain (control) HEADER OPERATION: CT guided liver biopsy PRE-OP DIAGNOSIS: Elevated liver enzymes TISSUE SUBMITTED: 18 gauge x 4 cores MICROSCOPIC DIAGNOSIS Liver, CT guided core biopsy: Non-necrotizing granulomas inflammation. Chronic hepatitis, grade 1, stage 1 (Modified Knodell Scoring system) Macrovesicular steatosis, mild to moderate. See comment. 05/31/2024 COMMENT Sections show non-necrotizing granulomas inflammation surrounded by chronic inflammatory infiltrates consistent primarily of lymphocytes with rare eosinophils and plasma cells. The background parenchyma contains macro vesicular steatosis. Trichrome stain reveals expansion of portal areas. No bridging fibrosis is seen. PAS and PASD stains do not reveal accumulation of abnormal proteins. Iron stain does not reveal accumulation of intraparenchymal iron. Reticulin stain reveals a normal hepatic architecture. All matched controls are appropriate. AFB and GMS stains with matched controls were used in the evaluation of this case. pANCA is increased. This pattern has been observed insignificant percentage with patients with ulcerative colitis primary sclerosing cholangitis and autoimmune hepatitis and may also be seen in sarcoidosis. Clinical correlation is suggested. Clinical correlation is necessary. MICROSCOPIC DESCRIPTION Slides are reviewed. GROSS DESCRIPTION Received is one container labeled with the patient's name and not further designated. The specimen consists of multiple irregular and elongated fragments of light salgado soft tissue that in aggregate measure 1.5 x 0.4 x <0.1 cm. The specimen is totally submitted in one cassette. 05/28/2024 TC:3 CPT:41366,29186l,74538m1
[2024-05-28] MEDS: 0.9% Saline Lock 10 ML Syringe IV ×2 (08:24→08:57)
[2024-05-28] MEDS: Midazolam 2 MG/2 ML Syringe IV (08:38)
[2024-05-28] MEDS: fentaNYL 100 MCG/2 ML Ampul IV ×2 (08:41→08:50)
[2024-05-28] MEDS: Lidocaine 2% (20 ml mdv) 20 ML Vial INFILT (08:50)
--- NOTE | 2024-05-28 09:14 | OP.PCM_ITS ---
Problems Associated Problem List Diagnoses (1) Abnormal finding of blood chemistry: Operative Report (Standard) Operative Information Surgery/Procedure Performed: Liver Biopsy Surgeon: Gabby Escobar Date of Procedure: 05/28/24 Procedure Start Time: 08:45 Procedure Stop Time: 08:55 Pre-Operative Diagnosis: elevated LFTs Post-Operative Diagnosis: elevated LFTs Select all DRAINS/GRAFTS/IMPLANTS that apply: None Type of Anesthesia: IV Sedation Estimated Blood Loss: 0 Specimen collected: Yes Description of specimen(s) removed: 4 liver cores Description of surgery: PROCEDURE: CT DIRECTED CORE LIVER BIOPSY ORDERING PROVIDER: Hina Sampson PA-C INDICATION: Male, 33 years old. Elevated LFTs. PROVIDER: ZULEMA Baca CONSENT: Written informed consent was obtained having explained the risks, benefits and alternatives in detail with the patient who accepted the risks and agreed to proceed. Laboratory review and clinical assessment was performed. PRE-PROCEDURE SEDATION ASSESSMENT: Current history and physical dictated by referring provider and reviewed. No clinical changes since date of exam. Patient has a Mallampati Score of Class 1 a nd ASA Class of 2. PROCEDURAL SEDATION PROTOCOL: The Drugs used were: 2 mg Versed, IV, and 100 mcg Fentanyl, IV. The sedation time: starting at 8:38 AM and terminated at 8:55 AM. The procedural sedation protocol was independently monitored by the department nurse. RADIATION DOSAGE (If Supplied By Facility): CTDIvol = 22.31 mGy, DLP = 518.18 mGycm Individualized dose optimization techniques were used for this CT. TECHNIQUE The patient was placed in a supine position. Using CT image guidance with image documentation, a suitable location in the left lobe of the liver was identified. The skin surface was prepped with chlorhexidine and draped in a sterile fashion. 2% lidocaine was used for local anesthesia. Using an anterior approach, puncture of the liver was uneventful with an 18-gauge core needle system. Four, 18-gauge core samples were obtained, and submitted in formalin to the pathologist for further assessment. The needle was removed. An occlusive sterile dressing was applied. Patient tolerated the procedure well, and returned to the holding bay for nursing monitoring. IMPRESSION: CT directed core needle biopsy of the liver, using CT image guidance with image documentation as described. Procedural Sedation protocol utilized with independent monitoring. Surgical Findings: Successful liver biopsy. Feed Management Advisor aquatic scientist: No Complications Complications: No
--- NOTE | 2024-05-28 09:34 | CT_ITS ---
INDICATION: post liver biopsy pain done today EXAMINATION: CT ABDOMEN WITHOUT CONTRAST - CT Abdomen W/O Contrast Injection TECHNIQUE: Multiple axial images were obtained of the abdomen without oral or IV contrast. The protocol utilizes one or more of the following dose reduction techniques: automated exposure control, adjustment of mA and/or kV according to patient size,and/or use of iterative reconstruction technique. IV Contrast dosage and agent: None. Oral contrast: None. RADIATION DOSAGE (If Supplied By Facility): CTDIvol = ( 23.94 ) mGy, DLP = ( 1100.43 ) mGycm COMPARISON: FINDINGS: LOWER CHEST: Lung bases are clear. No cardiomegaly or pericardial effusion. LIVER: Homogeneous. No focal mass. GALLBLADDER AND BILIARY TREE: Nonvisualization of the gallbladder . No intra- or extrahepatic biliary ductal dilation. PANCREAS: No focal cystic or solid mass. SPLEEN: Normal size without focal cystic or solid mass. ADRENAL GLANDS: No nodules. KIDNEYS AND URETERS: No visualization of the left kidney. No right hydronephrosis or nephrolithiasis. PERITONEUM: No ascites or free air. No other fluid collection. BOWEL: No stomach or bowel distension. No focal inflammatory change. LYMPH NODES: No enlarged mesenteric or retroperitoneal lymph nodes. VESSELS: Aorta is non-dilated. ABDOMINAL WALL: No discrete abdominal wall hernia. BONES: No lytic or blastic abnormality. CT/Abdomen without IV Contrast IMPRESSION: No acute pathology of the abdomen. Electronically Signed: Nasim Colon DO at 10:03 [facility] Reading Location ID and State: [facility] / [place] Tel [phone], Service support ,
== END 2024-05-28 23:59 | disposition home or self-care (01) ==
LOC: CT 07:48
PROVIDERS: PCP Family Medicine; Referring Provider Student in an Organized Health Care Education/Training Program; Visit Provider Student in an Organized Health Care Education/Training Program
DX: R74.01 Elevation of levels of liver transaminase levels (principal); K73.9 Chronic hepatitis, unspecified; K76.0 Fatty (change of) liver, not elsewhere classified
CPT/HCPCS: 47000; 36415; 74150; 77012; 85049; 85610; 85730; 88307; 88312; 99156; A4216

== ENCOUNTER → 2024-06-04 | Outpatient (CLI) | payer BC, SELFPAY ==
[2024-06-08 15:08] LABS: Albumin 3.6 g/dL (2.9-4.4); Alpha-1-Globulins 0.3 g/dL (0.0-0.4); Alpha-2-Globulins 0.8 g/dL (0.4-1.0); Angiotensin Convert Enzyme 74 U/L (14-82); Gamma Globulin 1.3 g/dL (0.4-1.8); IgG, Quant 1183 mg/dL (603-1613); Immunoglobulin A 527 mg/dL (90-386); Immunoglobulin G, Subclass 1 633 mg/dL (248-810); Immunoglobulin G, Subclass 2 322 mg/dL (130-555); Immunoglobulin G, Subclass 3 82 mg/dL (15-102); Immunoglobulin G, Subclass 4 87 mg/dL (2-96); Immunoglobulin M 27 mg/dL (20-172); PROEL- TOTAL PROTEIN 7.2 g/dL (6.0-8.5); QNTFERON TB Mitogen Value > 10.00 IU/mL (.); QNTFERON TB Nil Value 0.04 IU/mL (.); QNTFERON TB1+ Ag Value 0.04 IU/mL (.); QNTFERON TB2+ Ag Value 0.06 IU/mL (.); QNTIFERON TB Positive Criteria Negative (Negative)
== END | disposition home or self-care (01) ==
LOC: LAB 11:07
PROVIDERS: PCP Family Medicine; Referring Provider Student in an Organized Health Care Education/Training Program; Visit Provider Student in an Organized Health Care Education/Training Program
DX: R79.89 Other specified abnormal findings of blood chemistry (principal)
CPT/HCPCS: 36415; 82164; 82784; 82787; 84165; 86334; 86480

== ENCOUNTER → 2024-06-09 | Outpatient (CLI) | payer BC, SELFPAY ==
--- NOTE | 2024-06-09 11:45 | RAD_ITS ---
INDICATION: PREPATELLAR BURSITIS EXAMINATION/TECHNIQUE: X-RAY - LEFT XR Knee 3 Views 3 upright VIEWS COMPARISON: No relevant prior comparison study available FINDINGS: SOFT TISSUES: No soft tissue swelling or gas. No radiopaque foreign body. BONES/JOINTS: No acute fracture or subluxation.. Normal alignment. Preservation of the joint space. No joint effusion. No sclerotic or destructive changes observed. RAD/Knee 3 Views IMPRESSION: No fracture or malalignment. Unremarkable soft tissues. Electronically Signed: Kane Johnson MD at 22:34 EST ,
== END | disposition home or self-care (01) ==
PROVIDERS: PCP Family Medicine; Referring Provider Family Medicine; Visit Provider Family Medicine
DX: M70.40 Prepatellar bursitis, unspecified knee (principal)
CPT/HCPCS: 73562

== ENCOUNTER → 2024-07-01 | Outpatient (CLI) | payer BC, SELFPAY ==
--- NOTE | 2024-07-01 06:37 | MRI_ITS ---
EXAM: MR ABDOMEN WITHOUT INTRAVENOUS CONTRAST, MRCP PROTOCOL CLINICAL INDICATION: abnormal liver biopsy TECHNIQUE: Multiplanar and multisequence MR images of the abdomen without intravenous contrast obtained with MRCP sequence. Three-dimensional post-processing reconstructions were performed. COMPARISON: CT abdomen 05/28/2024, FINDINGS: LOWER THORAX: Normal. No pleural effusion. LIVER: Homogeneous signal intensity within the liver. No space-occupying liver lesions noted. GALLBLADDER AND BILE DUCTS: Patient is status post cholecystectomy. No intra- or extrahepatic biliary ductal dilation. No choledochal filling defect. PANCREAS: Normal. No focal cystic mass. No pancreatic duct dilation. SPLEEN: Normal. Non-enlarged. ADRENALS: Normal. No nodules. KIDNEYS AND URETERS: Normal. Normal renal size and position. No hydronephrosis. Normal right kidney. Hypoplastic left kidney. INTRAPERITONEAL SPACE: Normal. No ascites or other fluid collection. VASCULATURE: Normal. Abdominal aorta is non-dilated. LYMPH NODES: No enlarged lymph nodes. MRI/MRCP Abdomen without Contrast IMPRESSION: 1. No acute abdominal abnormality. 2. No focal liver lesion. Electronically Signed: Paulo Gilbert MD at 17:02 EST ,
== END | disposition home or self-care (01) ==
LOC: MRI 06:26
PROVIDERS: PCP Family Medicine; Referring Provider Student in an Organized Health Care Education/Training Program; Visit Provider Student in an Organized Health Care Education/Training Program
DX: R79.89 Other specified abnormal findings of blood chemistry (principal)
CPT/HCPCS: 74181

== ENCOUNTER 2024-07-23 16:48 | Emergency (ER) | payer BC, SELFPAY ==
[2024-07-23 16:49] VITALS: BP 157/91; PULSE 126; RESP 20; TEMP 36.2; O2SAT 98; BMI 32.8
--- NOTE | 2024-07-23 17:22 | EX.ED.DYSGE1 ---
HPI <LETITIA Kapoor - Last Filed: 07/23/24 18:12> History of Present Illness Chief Complaint: GI Bleed Narrative Narrative: Patient is a 33-year-old male with history of internal hemorrhoid, cholecystectomy 1 year ago, GERD who presents the emergency department for 2 bouts of bloody stool. Patient states he has no significant pain. He denies any new dizziness. Pay states he feels tired have this is all the time. He does follow-up with GI specialty. PFSH <LETITIA Kapoor - Last Filed: 07/23/24 18:12> [facility] Medical History (Updated 07/23/24 @ 18:12 by LETITIA Kapoor) Hemorrhoids Wears contact lenses Wears glasses Restless legs Back pain Abdominal pain Leg cramps History of pain when walking Smoker Renal agenesis, unilateral Home Medications ?Medication ?Instructions ?Recorded ?Last Taken ?Type dicyclomine 10 mg capsule 10 mg PO BID PRN PRN abdominal pain 02/02/24 Unknown History acetaminophen 325 mg tablet 650 mg (2 x 325 mg) PO Q6H PRN PRN 02/18/24 Unknown Rx Pain 1-10 Or Fever >100.7 #0 tabs pantoprazole 40 mg tablet,delayed 40 mg PO DAILY reflux #60 tabs 04/30/24 Unknown Rx release diclofenac sodium 3 % topical gel 1 applic topical BID #100 grams 06/09/24 Unknown Rx Allergy/AdvReac Type Severity Reaction Status Date / Time No Known Allergies Allergy Verified 06/09/24 10:49 Surgical History S/P laparoscopic cholecystectomy H/O esophagogastroduodenoscopy H/O wisdom tooth extraction Social History Smoking Status: Light Smoker (<10/day) alcohol intake: former details: prior alcohol issues substance use type: former substance user and marijuana well-balanced diet: daily or most days what type of physical activity do you participate in: none seatbelt use: always do you feel safe at home: Yes ROS <LETITIA Kapoor - Last Filed: 07/23/24 18:12> ROS ED ROS Narrative Constitutional: Negative for fever, chills, weight loss, weakness Eyes: Negative for vision loss, vision change, double vision ENT: Negative for any sore throat, ear pain, congestion Cardiovascular: Negative for any chest pain, tightness, palpitations Respiratory: Negative for any cough, sputum production, hemoptysis, dyspnea, dyspnea on exertion, orthopnea Gastrointestinal: Negative for any abdominal pain, nausea, vomiting, diarrhea, constipation, blood in vomit. Positive blood in stool : Negative for any urinary frequency, dysuria, retention, blood in urine Muscle skeletal: Negative for any neck pain, back pain Neurological: Negative for any headache, syncope, dizziness Skin: Negative for any rashes, itching, abrasions, lacerations Psychiatric: Negative for any depression, anxiety, stress, suicidal ideation, homicidal ideation Hematologic: Negative for any excessive bruising, easy bleeding EXAM <LETITIA Kapoor - Last Filed: 07/23/24 18:12> Physical Exam Narrative Exam Narrative: Vital signs reviewed. HEET: Head normocephalic atraumatic, TMs clear bilaterally. Posterior pharynx is clear, moist mucous membranes. Nares clear bilaterally. Neck: Supple with no lymphadenopathy or tenderness. No signs of meningismus. Cardiac: Regular rate and rhythm no murmurs gallops or rubs, equal peripheral pulses bilaterally. Respiratory: Lungs clear to auscultation bilaterally. No chest tenderness. Abdomen: Soft, nontender, nondistended. No abdominal bruit or pulsatile masses. No hepatosplenomegaly Extremities: No peripheral edema, no signs of gross trauma or deformity. Active full range of motion of all extremities. Neuro: Cranial nerves II through XII intact, no focal neurological deficits. Skin: Clean dry and intact with no rash, purpura, petechiae, vesicles or pustules. Backs/flank: No CVA tenderness, no midline spinal tenderness, no deformity. Psych: Normal mood and affect. No SI, HI or acute psychosis. Rectal: Rectal exam was completed with ER physician, patient had no redness, brittany bleeding around the anus. There was an old skin tag. There is no bright red blood on my finger. Rectal vault was empty. Const Vital Signs: 07/23/24 16:49 07/23/24 18:12 Temperature 97.2 F L 97.2 F L Temperature Source Temporal Pulse Rate 126 H 126 H Respiratory Rate 20 H 20 H Blood Pressure 157/91 H 157/91 H Blood Pressure Mean 113 113 Pulse Ox 98 98 Oxygen Delivery Method Room Air Positive well nourished and well developed General Appearance ED: well developed <Dr. Gm Maddox DO - Last Filed: 07/23/24 22:43> Physical Exam Const Vital Signs: 07/23/24 16:49 07/23/24 18:12 Temperature 97.2 F L 97.2 F L Temperature Source Temporal Pulse Rate 126 H 126 H Respiratory Rate 20 H 20 H Blood Pressure 157/91 H 157/91 H Blood Pressure Mean 113 113 Pulse Ox 98 98 Oxygen Delivery Method Room Air MDM <LETITIA Kapoor - Last Filed: 07/23/24 18:12> MDM Lab Data Labs: Laboratory Results - last 24 hr 07/23/24 17:30 WBC 7.8 RBC 5.31 Hgb 16.3 Hct 47.0 MCV 88.5 MCH 30.7 MCHC 34.7 RDW Std Deviation 38.5 RDW Coeff of [place] 12.0 Plt Count 253 MPV 9.5 Immature Gran % (Auto) 0.100 Neut % (Auto) 67.3 Lymph % (Auto) 23.2 Craig % (Auto) 6.4 Eos % (Auto) 2.2 Baso % (Auto) 0.8 Absolute Neuts (auto) 5.3 Absolute Lymphs (auto) 1.82 Nucleated RBC % 0 Sodium 141 Potassium 3.7 Chloride 108 H Carbon Dioxide 27.0 Anion Gap 6 BUN 13 Creatinine 1.33 H Estim Creat Clear Calc 103.04 Est GFR (MDRD) Af Amer 80 Est GFR (MDRD) Non-Af 66 BUN/Creatinine Ratio 9.8 L Glucose 101 Calcium 9.6 Total Bilirubin 0.60 AST 44 H ALT 115 H Alkaline Phosphatase 135 H Total Protein 7.9 Albumin 3.8 Globulin 4.1 Albumin/Globulin Ratio 0.9 Treatment and Re-Evaluation :: Differential diagnosis includes however is not limited to: Upper GI bleed, lower GI bleed, bleeding hemorrhoid, fissure, anemia Patient appears generally well, vital signs are stable, patient is nontoxic-appearing. Presenting to the emergency department for complaints of 2 bouts of blood in his stool. Rectal exam was unremarkable. No signs of brittany bleeding. Patient received CBC, CMP. Patient looks generally well. Not believe that there is any need for any advanced imaging. Patient's vital signs improved. Heart rate was 85 on my count. Patient's CBC showed a hemoglobin of 16.3, this is high normal, patient on reevaluation is in no obvious distress. Chemistries show a creatinine of 1.3 however this seems baseline over the last year. Patient does have some transaminitis however is improved since previous. Patient will follow-up outpatient <Dr. Gm Maddox, DO - Last Filed: 07/23/24 22:43> [facility] Lab Data Labs: Laboratory Results - last 24 hr 07/23/24 17:30 WBC 7.8 RBC 5.31 Hgb 16.3 Hct 47.0 MCV 88.5 MCH 30.7 MCHC 34.7 RDW Std Deviation 38.5 RDW Coeff of [place] 12.0 Plt Count 253 MPV 9.5 Immature Gran % (Auto) 0.100 Neut % (Auto) 67.3 Lymph % (Auto) 23.2 Craig % (Auto) 6.4 Eos % (Auto) 2.2 Baso % (Auto) 0.8 Absolute Neuts (auto) 5.3 Absolute Lymphs (auto) 1.82 Nucleated RBC % 0 Sodium 141 Potassium 3.7 Chloride 108 H Carbon Dioxide 27.0 Anion Gap 6 BUN 13 Creatinine 1.33 H Estim Creat Clear Calc 103.04 Est GFR (MDRD) Af Amer 80 Est GFR (MDRD) Non-Af 66 BUN/Creatinine Ratio 9.8 L Glucose 101 Calcium 9.6 Total Bilirubin 0.60 AST 44 H ALT 115 H Alkaline Phosphatase 135 H Total Protein 7.9 Albumin 3.8 Globulin 4.1 Albumin/Globulin Ratio 0.9 Treatment and Re-Evaluation :: Differential diagnosis includes however is not limited to: Upper GI bleed, lower GI bleed, bleeding hemorrhoid, fissure, anemia Patient appears generally well, vital signs are stable, patient is nontoxic-appearing. Presenting to the emergency department for complaints of 2 bouts of blood in his stool. Rectal exam was unremarkable. No signs of brittany bleeding. Patient received CBC, CMP. Patient looks generally well. Not believe that there is any need for any advanced imaging. Patient's vital signs improved. Heart rate was 85 on my count. Patient's CBC showed a hemoglobin of 16.3, this is high normal, patient on reevaluation is in no obvious distress. Chemistries show a creatinine of 1.3 however this seems baseline over the last year. Patient does have some transaminitis however is improved since previous. Patient will follow-up outpatient ED attending note: I evaluated the patient in conjunction with the [facility]. I agree with his/her statements and above findings. I have personally performed a face to face assessment of the patient and have reviewed the RE[facility] Note. I performed a substantive portion of the visit including all aspects of the following. I personally saw the patient performed chart review, physical exam, reviewed labs, imaging (if obtained), and formulated a treatment and management plan. This note was generated with [employer] dictation software. It may contain incorrect words, spelling, and punctuation that were not noted in review of the chart prior to signing. Discharge Plan Triage Chief Complaint: GI Bleed ED Midlevel Provider: Jese Velez ED Provider: Gm Maddox Dx/Rx/DC Orders Clinical Impression: Blood in stool, Constipation Instructions: GI Bleeding Causes and Tests Prescriptions: No Action pantoprazole 40 mg tablet,delayed release (DR/EC) 40 mg PO DAILY Qty: 60 0RF diclofenac sodium 3 % gel 1 applic topical BID Qty: 100 1RF dicyclomine 10 mg capsule 10 mg PO BID PRN PRN (Reason: abdominal pain) acetaminophen 325 mg Tablet 650 mg PO Q6H PRN PRN (Reason: Pain 1-10 Or Fever >100.7) Qty: 0 0RF Primary Care Provider: Arun Gonzales Referrals: Arun Gonzales DO [Primary Care Provider] - Rodrigo García DO [Med Staff - Active Staff] - Activity Restrictions/Additional Instructions: Please follow-up outpatient. Your hemoglobin was 16.6, this is hide normal. Take MiraLAX to decrease your constipation. Print Language: Czech Disposition Disposition: Home, Self Care Discharge Date/Time: 07/23/24 18:19
[2024-07-23 17:37] LABS: Absolute Lymphocyte Count 1.82 X10^3/uL (0.83-4.51); Absolute Neutrophil Count 5.3 X10^3/uL (2.0-7.7); Basophil# 0.06 X10^3/uL; Basophil% 0.8 % (0-1); Eosinophil# 0.17 X10^3/uL; Eosinophils% 2.2 % (0-5); Hemoglobin 16.3 g/dL (13.0-16.5); Lymphocyte # 1.82 X10^3/ul (0.83-4.51); Lymphocyte % 23.2 % (19-41); Mean Corp Hgb Conc 34.7 g/dL (32-36); Mean Corpuscular Hgb 30.7 pg (27.0-32.0); Mean Corpuscular Volume 88.5 fL (80-94); Mean Platelet Vol. 9.5 fl (6.2-12.0); Monocyte% 6.4 % (0-10); NRBC Flagged by Analyzer 0 % (0-5); Neutrophil # 5.27 X10^3/uL (2.7-7.7); Neutrophil % 67.3 % (47-70); Platelet Count 253 K/mm3 (150-450); RBC Distribution Width SD 38.5 fl (35.1-43.9); Red Blood Count 5.31 M/mm3 (4.6-6.2); White Blood Count 7.8 K/mm3 (4.4-11.0)
[2024-07-23 17:56] LABS: ALB/GLOB Ratio 0.9 RATIO (0.9-2.4); AST(SGOT) 44 U/L (15-37); Alanine Aminotransfer ALT/SGPT 115 U/L (16-61); Albumin, Serum 3.8 g/dL (3.2-5.0); Alkaline Phosphatase 135 U/L (45-117); Anion Gap 6 (5-15); BUN 13 mg/dL (7-18); BUN/Creat Ratio 9.8 RATIO (10-20); Calcium,Total 9.6 mg/dL (8.5-10.1); Chloride 108 mmol/L (98-107); Creatinine, Serum 1.33 mg/dL (0.70-1.30); EST Glomerular Filtration Rate 66 mL/min (>60); Est Glom Filt Rate - Afr Amer 80 mL/min (>60); Estimated Creatinine Clearance 103.04 ml/min; Globulin 4.1 g/dL (2.2-4.2); Glucose 101 mg/dL (74-106); Potassium 3.7 mmol/L (3.5-5.1); Protein, Total 7.9 g/dL (6.4-8.2); Sodium Level 141 mmol/L (136-145)
[2024-07-23 18:12] VITALS: BP 157/91; PULSE 126; RESP 20; TEMP 36.2; O2SAT 98
== END 2024-07-23 18:19 | disposition home or self-care (01) ==
PROVIDERS: Nurse Practitioner; Emergency Provider Emergency Medicine; PCP Family Medicine; Visit Provider Emergency Medicine
DX: K92.1 Melena (principal); K59.00 Constipation, unspecified; F17.210 Nicotine dependence, cigarettes, uncomplicated; Z90.49 Acquired absence of other specified parts of digestive tract; K21.9 Gastro-esophageal reflux disease without esophagitis
CPT/HCPCS: 80053; 85025; 99283; A4216

== ENCOUNTER → 2024-08-04 | Outpatient (CLI) | payer BC, SELFPAY ==
[2024-08-04 11:18] LABS: Absolute Lymphocyte Count 1.74 X10^3/uL (0.83-4.51); Absolute Neutrophil Count 4.1 X10^3/uL (2.0-7.7); Basophil# 0.04 X10^3/uL; Basophil% 0.6 % (0-1); Eosinophil# 0.31 X10^3/uL; Eosinophils% 4.6 % (0-5); Hematocrit 45.4 % (40-54); Hemoglobin 15.7 g/dL (13.0-16.5); Lymphocyte # 1.74 X10^3/ul (0.83-4.51); Lymphocyte % 25.7 % (19-41); Mean Corp Hgb Conc 34.6 g/dL (32-36); Mean Corpuscular Hgb 30.8 pg (27.0-32.0); Mean Platelet Vol. 9.2 fl (6.2-12.0); Monocyte# 0.54 X10^3/uL; NRBC Flagged by Analyzer 0 % (0-5); Neutrophil % 60.7 % (47-70); Platelet Count 256 K/mm3 (150-450); RBC Distribution Width SD 39.3 fl (35.1-43.9); White Blood Count 6.8 K/mm3 (4.4-11.0)
[2024-08-05 15:07] LABS: ANTINUCLEAR ANTIBODIES DIRECT Negative (Negative); Anti-Smooth Muscle ABS 7 Units (0-19); Cytoplasmic Ab (C-ANCA) <1:20 titer (Neg:<1:20); Perinuclear Ab (P-ANCA) <1:20 titer (Neg:<1:20)
== END | disposition home or self-care (01) ==
LOC: LAB 10:46
PROVIDERS: PCP Family Medicine; Referring Provider Student in an Organized Health Care Education/Training Program; Visit Provider Student in an Organized Health Care Education/Training Program
DX: K92.1 Melena (principal); R79.89 Other specified abnormal findings of blood chemistry
CPT/HCPCS: 36415; 83516; 85025; 86037; 86038

== ENCOUNTER → 2024-11-10 | Outpatient (CLI) | payer BC, SELFPAY ==
[2024-11-10 13:02] LABS: ALB/GLOB Ratio 1.3 RATIO (0.9-2.4); AST(SGOT) 51 U/L (<=37); Alanine Aminotransfer ALT/SGPT 113 U/L (<=46); Albumin, Serum 4.1 g/dL (3.5-5.0); Alkaline Phosphatase 131 U/L (40-129); Anion Gap 10 (5-15); BUN 13 mg/dL (4-19); BUN/Creat Ratio 12.3 RATIO (10-20); Calcium,Total 9.7 mg/dL (7.6-11.0); Carbon Dioxide 22.8 mmol/L (21.0-32.0); Chloride 104 mmol/L (98-108); Creatinine, Serum 1.04 mg/dL (0.70-1.20); EST Glomerular Filtration Rate 98 (>60); Globulin 3.1 g/dL (2.2-4.2); Glucose 108 mg/dL (70-99); Potassium 4.1 mmol/L (3.3-5.1); Protein, Total 7.2 g/dL (5.9-8.4); Sodium Level 137 mmol/L (133-145); Total Bilirubin 0.58 mg/dL (0.00-1.30)
== END | disposition home or self-care (01) ==
LOC: LAB 11:10
PROVIDERS: PCP Family Medicine; Referring Provider Student in an Organized Health Care Education/Training Program; Visit Provider Student in an Organized Health Care Education/Training Program
DX: R79.89 Other specified abnormal findings of blood chemistry (principal); I10 Essential (primary) hypertension
CPT/HCPCS: 36415; 80053; 84443

== ENCOUNTER → 2024-11-24 | Outpatient (CLI) | payer BC, SELFPAY | END | disposition home or self-care (01) | LOC: SL 19:53 | PROVIDERS: PCP Family Medicine; Referring Provider Physician Assistant; Visit Provider Physician Assistant | DX: G47.10 Hypersomnia, unspecified (principal); R53.83 Other fatigue; I10 Essential (primary) hypertension | CPT/HCPCS: 95810 ==

== ENCOUNTER 2025-01-10 14:48 | Emergency (ER) | payer BC, SELFPAY ==
[2025-01-10] VITALS (7 sets, daily range): BP systolic 128–145; BP diastolic 79–114; PULSE 77–129; RESP 15–20; TEMP 36.9–37; O2SAT 92–100; BMI 34.4
--- NOTE | 2025-01-10 15:55 | EDS_ITS ---
HPI History of Present Illness Chief Complaint: Palpitations Informant: patient Onset/Context/Timing Onset: Today Context: Gradual Onset Timing: Continuous Quality: Beating hard Location: Substernal Worsened by: Nothing Relieved by: Rest Narrative Narrative: Patient presents with palpitations that began today while he was at work. Patient states that he felt like his heart was beating hard. Patient states it was mainly over the substernal area. Patient states nothing makes it worse. Patient states it is better with rest. Patient noted his legs felt weak. Patient states he checked his heart rate at work and it was 150. Patient states he noticed wheezing last night while he was watching TV. Patient denies any shortness of breath. [facility] Medical History (Updated 01/10/25 @ 19:[address] Luis Angel Win DO) Gastritis Hypertension Hemorrhoids Wears contact lenses Wears glasses Restless legs Back pain Abdominal pain Leg cramps History of pain when walking Smoker Renal agenesis, unilateral Home Medications ?Medication ?Instructions ?Recorded ?Last Taken ?Type dicyclomine 10 mg capsule 10 mg PO BID PRN PRN abdomin al pain 02/02/24 Unknown History pantoprazole 40 mg tablet,delayed 40 mg PO DAILY reflu x #60 tabs 12/07/24 01/10/25 Rx release valsartan 80 mg tablet 80 mg PO QDAY #90 tabs 12/0701/10/25 Rx Allergy/AdvReac Type Severity Reaction Status Date / Time No Known Allergies Allergy Verified 01/10/25 15:49 Surgical History S/P laparoscopic cholecystectomy H/O esophagogastroduodenoscopy H/O wisdom tooth extraction Social History Smoking Status: Light Smoker (<10/day) alcohol intake: former details: prior alcohol issues substance use type: former substance user and marijuana well-balanced diet: daily or most days what type of physical activity do you participate in: none seatbelt use: always do you feel safe at home: Yes ROS ROS ED Constitutional Constitutional ED: Denies chills or fever(s) Eyes Eyes: Denies blurry vision or change in vision ENT ENT ED: Denies rhinorrhea or sore throat Cardiovascular Cardiovascular: Reports chest pain and palpitations Respiratory/Chest Respiratory/Chest: Denies cough or dyspnea Gastrointestinal Gastrointestinal: Denies nausea or vomiting Genitourinary Genitourinary ED: Denies dysuria or hematuria Musculoskeletal Musculoskeletal: Reports back pain and neck pain Integumentary Reports rash; Denies abscess Neurologic Neurologic: Reports headache(s); Denies weakness Allergic/Immunologic Allergic/Immunologic ED: Denies mouth swelling or urticaria EXAM Physical Exam Const Vital Signs: 01/10/25 14:48 01/10/25 15:49 01/10/25 15:49 Temperature 98.6 F Temperature Source Oral Pulse Rate 129 H 106 H Respiratory Rate 20 H 15 Respiratory Effort Normal Blood Pressure 145/114 H 128/79 H Blood Pressure Mean 124 95 Pulse Ox 99 94 Oxygen Delivery Method Room Air Room Air 01/10/25 16:00 01/10/25 17:00 01/10/25 18:00 Temperature Temperature Source Pulse Rate 108 H 90 81 Respiratory Rate 17 16 Respiratory Effort Blood Pressure 131/86 H 131/86 H Blood Pressure Mean 101 101 Pulse Ox 100 98 92 Oxygen Delivery Method Room Air 01/10/25 19:00 01/10/25 19:51 Temperature 98.4 F Temperature Source Pulse Rate 77 81 Respiratory Rate 16 16 Respiratory Effort Blood Pressure 128/79 H Blood Pressure Mean 95 Pulse Ox 97 100 Oxygen Delivery Method Positive well nourished and well developed General Appearance ED: well developed and NAD HEENT Reports moist mucous membranes Neck supple and no JVD Resp normal respiratory effort and clear to auscultation bilaterally Cardio regular rhythm Rate: tachycardic GI non-tender and non-distended Palpation: soft Extremity normal to inspection General Extremety ED: Negative for edema or tenderness General Extremity: Negative for edema Neuro oriented x3, CN's II-XII intact bilaterally and no sensory deficits noted Sensorium / Orientation: alert Motor Exam: strength 5/5 throughout Psych mental status grossly normal MDM MDM MDM Narrative Medical decision making narrative: Differential diagnosis includes cardiac dysrhythmia, cardiac ischemia, pneumonia, thyroiditis, dehydration, electrolyte abnormality, pulmonary embolism, and anxiety. EKG will be obtained to assess for cardiac dysrhythmia and cardiac ischemia. Chest x-ray will be obtained to assess for pneumonia and bronchitis. D-dimer will be obtained to assess for pulmonary embolism. CBC will be obtained to assess for leukocytosis or anemia. Patient with metabolic profile will be obtained to assess for electrolyte abnormality and renal function. High-sensitivity troponin will be obtained to assess for cardiac ischemia. History & Record Review Additional record(s) reviewed:: Prior outpatient record, Prior ED visit and Prior labs Lab Data Attestation: I reviewed the patient's lab results. Lab results narrative: CBC was reviewed and was within normal limits. Basic metabolic profile was reviewed and was within normal limits. D-dimer was reviewed and was normal at 0.27. High-sensitivity troponin was reviewed and was normal at less than 6. Labs: Laboratory Results - last 24 hr 01/10/25 01/10/25 15:01 17:30 WBC 6.5 RBC 5.23 Hgb 16.0 Hct 45.4 MCV 86.8 MCH 30.6 MCHC 35.2 RDW Std Deviation 37.9 RDW Coeff of [place] 11.9 Plt Count 275 MPV 9.8 Immature Gran % (Auto) 0.200 Neut % (Auto) 72.0 H Lymph % (Auto) 19.0 [place] % (Auto) 5.2 Eos % (Auto) 3.1 Baso % (Auto) 0.5 Absolute Neuts (auto) 4.7 Absolute Lymphs (auto) 1.24 Nucleated RBC % 0 D-Dimer Quant (PE/DVT) 0.27 Sodium 137 Potassium 4.1 Chloride 102 Carbon Dioxide 18.2 L Anion Gap 16 H BUN 11 Creatinine 1.21 H Estim Creat Clear Calc 114.74 Est GFR (MDRD) Non-Af 82 BUN/Creatinine Ratio 9.4 L Glucose 202 H Calcium 10.0 Troponin T High Sens < 6 Urine Color Yellow Urine Clarity Clear Urine pH 7.0 Ur Specific [place] 1.010 Urine Protein Negative Urine Glucose (UA) Normal Urine Ketones Negative Urine Occult Blood Negative Urine Nitrite Negative Urine Bilirubin Negative Urine Urobilinogen Normal Ur Leukocyte Esterase Negative Urine RBC 0-5 SEEN Urine WBC 0-5 SEEN Ur Squamous Epith Cells 0-5 SEEN Amorphous Sediment 1+ Urine Bacteria 0 SEEN Urine Mucus 0 SEEN ABG Data Attestation: I personally reviewed and interpreted this ABG as follows: Interpretation: VBG was reviewed. pH was normal at 7.42. pO2 was slightly low and O2 saturation was 83%. Bicarb was normal at 24. pCO2 was normal at 36.8. ABG results: ABG 01/10/25 19:28 Specimen Type TRENT Sample Site Not entered VBG pH 7.42 VBG pO2 46 H VBG HCO3 24 VBG Total CO2 25 VBG O2 Sat (Calc) 83 H VBG Base Excess 0 POC Mix VBG pCO2 Pt Tmp 36.8 L O2 Delivery Device Room Air Radiography Chest X-Ray - ED: 2 View, Read by ED Physician, Read by Radiologist and No Acute Disease Diagnostic Testing: Clinical Impression(s) from Imaging Studies Chest X-Ray 01/10/25 16:30 IMPRESSION: No acute cardiopulmonary disease. Reading Location: [facility] PA and lateral chest x-ray was obtained. There are 2 views. On my independent interpretation, lung ladd are clear. There is normal cardiac silhouette. Bony thorax is normal. There is no acute process noted. Radiologist also interpreted the x-ray and agrees. EKG Initial EKG: Attestation: I personally reviewed and interpreted this EKG as follows: Interpretation: Sinus Tachycardia (109) and Non-Specific ST Changes Comments: EKG was obtained. On my independent interpretation, it showed a sinus tachycardia with a rate of 109. VT interval, QRS interval, and QTc inte rvals were all normal. [place] was normal. There are no acute ST or T wave changes. Prior EKG tracings: available for review Prior: Unchanged (02/17/2024) Treatment and Re-Evaluation :: Patient was given IV fluids. Patient was advised of his findings. Patient was instructed to continue to monitor his sugars. Patient was instructed to follow- up with his primary care physician in 5 to 7 days. Patient was instructed to return if worse in any way. Patient understood and was agreeable with the plan. All questions were answered. Discharge Plan Triage Chief Complaint: Palpitations ED Provider: Luis Angel Win Dx/Rx/DC Orders Clinical Impression: Heart palpitations, Hyperglycemia, Tachycardia Instructions: ED Palpitations, ED Hyperglycemia New Poss Diabetes Prescriptions: No Action dicyclomine 10 mg capsule 10 mg PO BID PRN PRN (Reason: abdominal pain) pantoprazole 40 mg tablet,delayed release (DR/EC) 40 mg PO DAILY Qty: 60 0RF valsartan 80 mg tablet 80 mg PO QDAY Qty: 90 1RF Stand Alone Forms: ED Work / School Excuse Primary Care Provider: Arun Gonzales Referrals: Arun Gonzales, DO [Primary Care Provider] - Activity Restrictions/Additional Instructions: Your blood sugar was slightly elevated on lab results. Continue to monitor your blood sugars. Try to eat a low-carb, low sugar diet. Follow-up with your primary care physician in 5 to 7 days for further evaluation. Print Language: Upper Sorbian Disposition Disposition: Home, Self Care Discharge Date/Time: 01/10/25 19:56
--- NOTE | 2025-01-10 16:12 | EKG12_ITS ---
Test Reason : PALPS Blood Pressure : */* mmHG Vent. Rate : 109 BPM Atrial Rate : 109 BPM P-R Int : 144 ms QRS Dur : 82 ms QT Int : 328 ms P-R-T Axes : 27 15 -1 degrees QTcB Int : 441 ms Sinus tachycardia Otherwise normal ECG Confirmed by Scar Martinez ([id number]), editor in chief newspaper LESTER RAM ([id number]) on 01/12/2025 11:21:07 AM Referred By: GUDELIA/GUADALUPE Confirmed By: Scar Martinez
--- NOTE | 2025-01-10 16:30 | RAD_ITS ---
PROCEDURE: CHEST PA AND LATERAL 01/10/2025 REASON FOR EXAM: PALPITATIONS TECHNIQUE: CHEST PA AND LATERAL COMPARISON: None. FINDINGS: Lungs/Pleura: Clear. Heart/Mediastinum: Normal in size. Bones/Soft tissues: Mild degenerative changes of the spine. RAD/Chest PA and Lateral IMPRESSION: No acute cardiopulmonary disease. Reading Location: [id number]
[2025-01-10 16:41] LABS: Hematocrit 45.4 % (40-54); Hemoglobin 16.0 g/dL (13.0-16.5); Immature Granulocytes Count 0.010 X10^3/uL (0.0-0.0); Mean Corp Hgb Conc 35.2 g/dL (32-36); Mean Corpuscular Volume 86.8 fL (80-94); Mean Platelet Vol. 9.8 fl (6.2-12.0); NRBC Flagged by Analyzer 0 % (0-5); Platelet Count 275 K/mm3 (150-450); RBC Distribution Width CV 11.9 % (11.6-14.6); RBC Distribution Width SD 37.9 fl (35.1-43.9); Red Blood Count 5.23 M/mm3 (4.6-6.2); White Blood Count 6.5 K/mm3 (4.4-11.0)
[2025-01-10] MEDS: 0.9% Normal Saline (1000mL) 1,000 ML 1000 ML IV (16:41)
[2025-01-10 17:20] LABS: Troponin T High Sensitivity < 6 ng/L (<=22)
[2025-01-10 17:23] LABS: Anion Gap 16 (5-15); BUN 11 mg/dL (4-19); BUN/Creat Ratio 9.4 RATIO (10-20); Calcium,Total 10.0 mg/dL (7.6-11.0); Carbon Dioxide 18.2 mmol/L (21.0-32.0); Chloride 102 mmol/L (98-108); Estimated Creatinine Clearance 114.74 ml/min (50-250); Glucose 202 mg/dL (70-99); Potassium 4.1 mmol/L (3.3-5.1)
[2025-01-10 17:43] LABS: D-Dimer Quantitative (DVT/PE) 0.27 FEU/ug/m (0.27-0.49)
[2025-01-10 18:00] LABS: Mucous, Urine 0 SEEN /hpf (<or=2+)
[2025-01-10 18:25] LABS: Color, Urine Yellow (Yellow); Glucose, Dipstick Normal (Normal); Ketone-Dipstick Negative (Negative); Leukocyte Esterase-Dipstick Negative /ul (Negative); Nitrite-Dipstick Negative (Negative); Occult Blood-Urine Negative /ul (Negative); Protein-Dipstick Negative (Negative); Specific Gravity, Urine 1.010 (1.002-1.030); Urine Bilirubin Dipstick Negative (Negative)
[2025-01-10 19:05] LABS: Red Blood Cells-Urine 0-5 SEEN /hpf (0-5); Squamous Epithelial Cells - UA 0-5 SEEN /hpf (0-5)
[2025-01-10 19:31] LABS: SITE Not entered; VBG BASE EXCESS 0 mmol/L (-1.0-3.5); VBG PO2 46 mmHg (25-40); VBG SO2 83 % (50-70); VBG TCO2 25 mmol/L (23-33)
--- OUTSIDE RECORDS SUMMARY | 2025-01-10 22:55 | XMS RPT_ITS | CCD ---
Author Organization [facility]iniSyn[facility] Care Team Providers Care Transverse Abdominal Muscle Nurse Name Role Phone PHYSICIAN, NOT RECORDED Primary Care Physician U monse VILLASENOR MD, JENNIFFER Hanley Attending Unavail able PHYSICIAN, NOT RECORDED Primary Care Unavaila ble Dr. Arun Gonzales DO Primary Care Provider [phone] Dr. Gm Maddox DO Attending Provider Dr. Gm Maddox DO Emergency Provider Hina Webb Attending Provider Dr. Arun Gonzales DO Referring Provider Hina Webb Referring Provider Danny Dumas Attending Provider [phone] Arun Gonzales DO Primary Care Provider Danny Dumas Referring Provider [phone] Hina Sampson Consulting Unavailable Friend, Rodrigo Attending Unavailable Brown, Arun R Primary Care Unavailable Friend, Rodrigo Referring Unavailable Hina Sampson Attending Unavailable Hina Sampson Referring Unavailable Brown, Arnu R Primary Care Unavailable Hina Sampson Attending Unavailable Hina Sampson Referring Unavailable Brown, Arun R Primary Care Unavailable Hina Sampson Attending Unavailable Brown, Arun R Primary Care Unavailable Brown, Arun R Referring Unavailable Brown, Arun R Attending Unavailable Brown, Arun R Primary Care Unavailable Brown, Arun R Referring Unavailable Brown, Arun R Primary Care Unavailable Darrin Murphy Attending Unavailable Brown, Arun R Primary Care Unavailable Brown, Arun R Referring Unavailable Brown, Arun R Attending Unavailable Hina Sampson Attending Unavailable Brown, Arun R Primary Care Unavailable Hina Sampson Referring Unavailable Friend, Rodrigo Referring Unavailable Friend, Rodrigo Attending Unavailable Brown, Arun R Primary Care Unavailable Hina Sampson Attending Unavailable Hina Sampson Referring Unavailable Brown, Arun R Primary Care Unavailable Hina Sampson Attending Unavailable Brown, Arun R Referring Unavailable Sari Haywood Attending Unavailable Brown, Arun R Primary Care Unavailable Brown, Arun R Referring Unavailable Danny Dumas Referring Unavailable Danny Dumas Attending Unavailable Brown, Arun R Primary Care Unavailable Hina Sampson Attending Unavailable Hina Sampson Referring Unavailable Brown, Arun R Primary Care Unavailable Miryam Ohara Attending Unavailable Hina Sampson Referring Unavailable Hina Sampson Attending Unavailable Brown, Arun R Primary Care Unavailable Gm Maddox Attending Unavailable Brown, Arun R Primary Care Unavailable Hina Sampson Attending Unavailable Hina Sampson Referring Unavailable Brown, Arun R Primary Care Unavailable Hina Sampson Attending Unavailable Hina Sampson Referring Unavailable Brown, Arun R Primary Care Unavailable Care Physician, No Primary Referring Unava ilable Brown, Arun R Primary Care Unavailable Brown, Arun R Attending Unavailable Hina Sampson Attending Unavailable Hina Sampson Referring Unavailable Brown, Arun R Primary Care Unavailable FriendRodrigo Attending Unavailable Brown, Arun R Primary Care Unavailable Brown, Arun R Referring Unavailable Sumeet Bearden Attending Unavailable Sumeet Bearden Admitting Unavailable Sari Haywood Referring Unavailable Brown, Arun R Primary Care Unavailable Sumeet Bearden Attending Unavailable Brown, Arun R Primary Care Unavailable Brown, Arun R Attending Unavailable Brown, Arun R Primary Care Unavailable Brown, Arun R Referring Unavailable Sumeet Bearden Consulting Unavailable Veronica HAIDER Amanda Referring Unavailable Sari Haywood Attending Unavailable Sumeet Bearden Admitting Unavailable Brown, Arun R Primary Care Unavailable Hina Sampson Referring Unavailable Hina Sampson Consulting Unavailable Gabby Escobar Attending Unavailable Brown, Arun R Primary Care Unavailable Hina Sampson Consulting Unavailable FriendRodrigo Referring Unavailable FriendRodirgo Attending Unavailable Brown, Arun R Primary Care Unavailable Friend, Rodrigo Consulting Unavailable Friend, Rodrigo Attending Unavailable Friend, Rodrigo Consulting Unavailable Brown, Arun R Primary Care Unavailable Brown, Arun R Referring Unavailable Arun Gonzales R Referring Unavailable Hina Sampson Attending Unavailable Arun Gonzales Primary Care Unavailable Arun Gonzales Referring Unavailable Danny Dumas Attending Unavailable Arun Gonzales Primary Care Unavailable Arun Gonzales R Referring Unavailable Hina Sampson Attending Unavailable Arun Gonzales Primary Care Unavailable Care Physician, No Primary Primary Care Unava ilable Care Physician, No Primary Referring Unava ilable Ashley Gutiérrez Attending Unavailable Arun Gonzales R Referring Unavailable Danny Dumas Attending Unavailable Arun Gonzales Primary Care Unavailable Dr. Arun Gonzales DO Primary Care Provider [phone] Dr. Arun Gonzales DO Referring Provider [phone] Hina Webb Attending Provider [phone] Hina Webb Referring Provider [phone] Dr. Luis Angel Win DO Emergency Provider [phone] Medications Current Medications Medication Drug Class(es) Dates Sig (Normalized) Sig (Original) dicyclomine hydrochloride 10 mg oral capsule (10 sources) Anticholinergic Start: 01-30-2024 End: 02-02-2024 take 1 capsule by mouth twice daily as needed for pain Dicyclomine 10 mg capsule Active 10 mg PO TWICE DAILY NEEDED as needed for abdominal pain February 02, 2024 12:00am Willard (Nk) (1 source) Start: 07-14-2019 Willard (Nk) Active July 14, 2019 1:00am pantoprazole 40 mg delayed release oral tablet (16 sources) Proton Pump Inhibitor Start: 01-06-2024 End: 12-07-2024 take 1 tablet by mouth once daily Pantoprazole 40 mg tablet,delayed release (DR/EC) Active 40 mg PO DAILY 60 0 December 07, 2024 7:50am reflux valsartan 80 mg oral tablet (6 sources) Angiotensin 2 Receptor Lisseth Start: 11-03-2024 End: 12-07-2024 take 1 tablet by mouth once daily Valsartan 80 mg tablet Active 80 mg PO daily 90 1 December 07, 2024 1:32pm Completed/Discontinued Medications Medication Drug Class(es) Dates Sig (Normalized) Sig (Original) acetaminophen 325 mg oral tablet (5 sources) Start: 02-18-2024 End: 11-03-2024 Acetaminophen 325 mg Tablet Discontinued 650 mg PO EVERY 6 HOURS NEEDED as needed for Pain 1-10 Or Fever >100.7 0 0 February 18, 2024 12:00am November 03, 2024 11:36am diclofenac sodium 0.03 mg/mg topical gel (5 sources) Nonsteroidal Anti-inflammatory Drug Start: 06-09-2024 End: 11-03-2024 Diclofenac Sodium 3 % gel Discontinued 1 NMA TOPICAL TWICE A DAY 100 1 June 09, 2024 1:00am November 03, 2024 11:36am lansoprazole 30 mg delayed release oral capsule (11 sources) Proton Pump Inhibitor Start: 02-02-2024 End: 02-18-2024 take 1 capsule by mouth at bedtime Lansoprazole 30 mg capsule,delayed release(DR/EC) Discontinued 30 mg PO AT BEDTIME February 02, 2024 12:00am February 18, 2024 9:29am reflux Start: 10-15-2023 End: 01-06-2024 take 1 capsule by mouth at bedtime Lansoprazole (Prevacid) 30 mg capsule,delayed release(DR/EC) Discontinued 30 mg PO AT BEDTIME 14 28 0 October 15, 2023 12:00am January 06, 2024 11:23am oxyCODONE hydrochloride 5 mg oral tablet (5 sources) Opioid Agonist Start: 02-18-2024 End: 03-02-2024 take 1 tablet by mouth every six hours as needed for pain Oxycodone 5 mg Tablet Discontinued 5 mg PO EVERY 6 HOURS NEEDED as needed for Pain Score 4-10 10 3 0 February 18, 2024 March 02, 2024 9:19am Acute cholecystitis Acute cholecystitis sucralfate 1000 mg oral tablet (10 sources) Aluminum Complex Start: 03-04-2024 End: 07-23-2024 take 1 tablet by mouth three times daily Sucralfate 1 gram tablet Discontinued 1 g PO THREE TIMES A DAY March 04, 2024 12:00am July 23, 2024 6:35pm Start: 02-10-2024 End: 03-02-2024 take 1 tablet by mouth before mealtime Sucralfate 1 gram tablet Discontinued 1 g PO before meals 90 0 February 10, 2024 12:00am March 02, 2024 9:19am stomach Problems Active Problems Problem Classification Problem Date Documented Da te Episodic/Chronic Abdominal pain (15 sources) Abdominal pain; Translations: [Unspecified abdominal pain] Onset: 01-04-2024 10-15-2023 Episodic Biliary tract disease (6 sources) Acute cholecystitis; Translations: [Acute cholecystitis] Onset: 03-08-2024 02-23-2024 Episodic Cardiac dysrhythmias (2 sources) Palpitations; Translations: [Palpitations] 01-10-2025 Episodic Chronic kidney disease (1 source) Chronic kidney disease, stage 2 (mild); Translations: [Chronic kidney disease, stage 2 (mild)] Onset: 05-20-2024 Chronic Diabetes mellitus without complication (1 source) Hyperglycemia; Translations: [Hyperglycemia, unspecified] 01-10-2025 Episodic Essential hypertension (13 sources) Hypertensive disorder; Translations: [Essential (primary) hypertension] 11-03-2024 Chronic Gastritis and duodenitis (8 sources) Gastritis; Translations: [Gastritis, unspecified, without bleeding] 11-10-2024 Episodic Gastrointestinal hemorrhage (16 sources) Hematochezia; Translations: [Melena] Onset: 03-29-2024 01-06-2024 Episodic Nausea and vomiting (6 sources) Nausea; Translations: [Nausea] Onset: 02-17-2024 01-30-2024 Episodic Other connective tissue disease (5 sources) Prepatellar bursitis; Translations: [Prepatellar bursitis, unspecified knee] 06-09-2024 Episodic Other endocrine disorders (5 sources) Congenital adrenal hyperplasia; Translations: [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] 01-06-2024 Chronic Other endocrine disorders (1 source) 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; Translations: [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] Onset: 01-06-2024 Chronic Other gastrointestinal disorders (1 source) Irritable bowel syndrome without diarrhea; Translations: [Irritable bowel syndrome without diarrhea] Onset: 02-20-2024 Chronic Other gastrointestinal disorders (5 sources) Ulceration of small intestine; Translations: [Ulcer of intestine] 03-15-2024 Episodic Other gastrointestinal disorders (5 sources) Constipation; Translations: [Constipation, unspecified] 07-31-2024 Episodic Other liver diseases (5 sources) Steatosis of liver; Translations: [Fatty (change of) liver, not elsewhere classified] 01-06-2024 Chronic Other liver diseases (1 source) Fatty (change of) liver, not elsewhere classified; Translations: [Fatty (change of) liver, not elsewhere classified] Onset: 05-24-2024 Chronic Other screening for suspected conditions (not mental disorders or infectious disease) (20 sources) Other specified abnormal findings of blood chemistry; Translations: [Elevated liver function tests] Onset: 06-29-2024 01-06-2024 Episodic Other skin disorders (9 sources) Eruption; Translations: [Rash and other nonspecific skin eruption] 08-04-2024 Episodic Residual codes; unclassified (10 sources) Hypersomnia; Translations: [Hypersomnia, unspecified] 11-03-2024 Chronic Residual codes; unclassified (1 source) Hypersomnia, unspecified; Translations: [Hypersomnia, unspecified] Onset: 11-29-2024 Chronic Superficial injury; contusion (12 sources) Contusion of right hand; Translations: [Contusion of right hand, initial encounter] 07-19-2019 Episodic Unclassified (8 sources) Rash; Translations: [R21 - Rash and other nonspecific skin eruption] Unclassified (1 source) Elevation of levels of liver transaminase levels; Translations: [Elevation of levels of liver transaminase levels] Onset: 06-29-2024 Past or Other Problems Problem Classification Problem Date Documented Da te Episodic/Chronic Other connective tissue disease (1 source) Prepatellar bursitis, unspecified knee; Translations: [Prepatellar bursitis, unspecified knee] Onset: 07-13-2024 Episodic Other gastrointestinal disorders (1 source) Ulcer of intestine; Translations: [Ulcer of intestine] Onset: 05-06-2024 Episodic Other skin disorders (1 source) Rash and other nonspecific skin eruption; Translations: [Rash and other nonspecific skin eruption] Onset: 08-04-2024 Episodic Results Test Name Value Interpretation Reference Range Facility Absolute lymphocyte countOrd ered By: Luis Angel iWn on 01-10-2025 Lymphocytes Auto (Unsp spec) [#/Vol] 1.24 10*3/uL 0.83-4.[address] [facility] Absolute neutrophil countOrd ered By: Luis Angel Win on 01-10-2025 Neutrophils (Bld) [#/Vol] 4.7 10*3/uL 2.0-7.[address] [facility] Amorphous sediment detection in urine sediment by light microscopyOrdered By: Luis Angel Win on 01-10-2025 Amorphous sediment LM Ql (Urine sed) 1+ [facility] Anion gap in Serum or Plasma Ordered By: Luis Angel Win on 01-10-2025 Anion gap [Moles/Vol] 16 mmol/L High 5-15 [facility] Automated lymphocyte count a s percentage of total leukocytesOrdered By: Luis Angel Win on 01-10-2025 Lymphocytes/100 WBC Auto (Unsp spec) 19.0 % 19-[address] [facility] BUN/creatinine ratioOrdered By: Luis Angel Win on 01-10-2025 Urea nitrogen/Creatinine [Mass ratio] 9.4 mg/mg Low 10-[address] [facility] Basophil percentageOrdered B y: Luis Angel Win on 01-10-2025 Basophils/100 WBC (Bld) 0.5 % 0-1 [facility] Bilirubin Test strip Ql (U)O rdered By: Luis Angel Win on 01-10-2025 Bilirubin Ql (U) Negative Negative [facility] CO2 (BldV) [Moles/Vol]Ordere d By: Luis Angel Win on 01-10-2025 CO2 [Moles/Vol] 25 mmol/L 23-[address] [facility] Carbon dioxide, total [Moles /volume] in Central venous bloodOrdered By: Luis Angel Win on 01-10-2025 CO2 [Moles/Vol] 18.2 mmol/L Low 21.0-32.[address] [facility] Chloride assayOrdered By: Kailash Win on 01-10-2025 Chloride [Moles/Vol] 102 mmol/L 98-108 [facility] Eosinophil percentageOrdered By: Luis Angel Win on 01-10-2025 Eosinophils/100 WBC (Bld) 3.1 % 0-[address] [facility] Erythrocyte distribution wid th ratioOrdered By: Luis Angel Win on 01-10-2025 Erythrocyte distribution width (RBC) [Ratio] 11.9 % 11.6-14.[address] [facility] Erythrocyte distribution wid th standard deviationOrdered By: Luis Angel Win on 01-10-2025 Erythrocyte distribution width (RBC) [Ratio] 37.9 fl 35.1-43.[address] [facility] Glomerular filtration rate ( GFR) estimation/1.73 sq m using serum, plasma, or whole bOrdered By: Luis Angel Win on 01-10-2025 GFR/1.73 sq M.predicted among non-blacks MDRD (S/P/Bld) [Vol rate/Area] 82 mL/min/{1.73_m2} >[address] [facility] Comment on above: mL/min/1.73m2 CKD-EP I Creatinine Equation (2020) Hematocrit Auto (Bld) [Volum e fraction]Ordered By: Luis Angel Win on 01-10-2025 Hematocrit (Bld) [Volume fraction] 45.4 % 40-[address] [facility] Hemoglobin measurementOrdere d By: Luis Angel Win on 01-10-2025 Hemoglobin (Bld) [Mass/Vol] 16.0 g/dL 13.0-16.[address] [facility] Immature granulocytes/100 WB C Auto (Bld)Ordered By: Luis Angel Win 01-10-2025 Immature granulocytes/100 WBC (Bld) 0.200 % 0.0-0.[address] [facility] Comment on above: IG% - Immature Granu locytes (promyelocytes, myelocytes and metamyelocytes) > 1% indicates that a LEFT SHIFT is Present. Ketones Test strip Ql (U)Ord ered By: Luis Angel Win on 01-10-2025 Ketones Ql (U) Negative Negative [facility] MCV (mean corpuscular volume ) determinationOrdered By: Luis Angel Win on 01-10-2025 MCV (RBC) [Entitic vol] 86.8 fL 80-94 [facility] Mean corpuscular hemoglobin (MCH) determinationOrdered By: Luis Angel Win 01-10-2025 MCH (RBC) [Entitic mass] 30.6 pg 27.0-32.[address] [facility] Mean corpuscular hemoglobin concentration (MCHC) determinationOrdered By: Luis Angel Win 01-10-2025 MCHC (RBC) [Mass/Vol] 35.2 g/dL 32-36 [facility] Mean platelet volume determi nationOrdered By: Luis Angel Win 01-10-2025 Platelet mean volume (Bld) [Entitic vol] 9.8 fL 6.2-12.[address] [facility] Microscopic analysis of urin e for red blood cells (RBC)Ordered By: Luis Angel Win on 01-10-2025 Microscopic analysis of urine for red blood cells (RBC) 0-5 SEEN /hpf 0-[address] [facility] Monocyte percentageOrdered B y: Luis Angel Win on 01-10-2025 Monocytes/100 WBC (Bld) 5.2 % 0-10 [facility] Mucus LM Ql (Urine sed)Order ed By: Luis Angel Win on 01-10-2025 Mucus Ql (Urine sed) 0 SEEN /hpf [facility] Neutrophil percentageOrdered By: Luis Angel Win on 01-10-2025 Neutrophils/100 WBC (Bld) 72.0 % High 47-[address] [facility] Nitrite Test strip Ql (U)Ord ered By: Luis Angel Win on 01-10-2025 Nitrite Ql (U) Negative Negative [facility] No Panel InformationOrdered By: Luis Angel Win on 01-10-2025 Blood Gas Sample Site Not entered [facility] Blood Gas Specimen Type TRENT [facility] Oxygen Delivery Device Room Air [facility] Nucleated red blood cell per centageOrdered By: Luis Angel Win on 01-10-2025 Nucleated RBC/100 WBC (Bld) [Ratio] 0 % 0-[address] [facility] Platelet countOrdered By: Kailash Win on 01-10-2025 Platelets (Bld) [#/Vol] 275 10*3/uL 150-[address] [facility] Potassium measurement (mass/ volume)Ordered By: Luis Angel Win on 01-10-2025 Potassium (Unsp spec) [Mass/Vol] 4.1 mmol/L 3.3-5.[address] [facility] Comment on above: Hemolysis present, R esults could be affected. Protein Test strip Ql (U)Ord ered By: Luis Angel Win on 01-10-2025 Protein Ql (U) Negative Negative [facility] RBC Auto (Bld) [#/Vol]Ordere d By: Luis Angel Win on 01-10-2025 RBC (Bld) [#/Vol] 5.23 10*6/uL 4.6-6.2 [facility] Serum creatinine measurement (mass/volume)Ordered By: Luis Angel Win on 01-10-2025 Creatinine [Mass/Vol] 1.21 mg/dL High 0.70-1.20 [facility] Serum glucose measurement (m ass/volume)Ordered By: Luis Angel Win on 01-10-2025 Glucose [Mass/Vol] 202 mg/dL High 70-99 [facility] Serum or plasma calcium summer urement (mass/volume)Ordered By: Luis Angel Win on 01-10-2025 Calcium [Mass/Vol] 10.0 mg/dL 7.6-11.0 [facility] Serum or plasma urea nitroge n measurement (mass/volume)Ordered By: Luis Angel Win on 01-10-2025 Urea nitrogen [Mass/Vol] 11 mg/dL 4-[address] [facility] Sodium levelOrdered By: Luis Angel Win on 01-10-2025 Sodium [Moles/Vol] 137 mmol/L 133-145 [facility] Squamous epithelial cells de tection in urine sediment by light microscopyOrdered By: Luis Angel Win on 01-10-2025 Epithelial cells.squamous LM Ql (Urine sed) 0-5 SEEN /hpf 0-[address] [facility] Troponin T.cardiac [Mass/vol ume] in Serum or Plasma by High sensitivity methodOrdered By: Luis Angel Win on 01-10-2025 Troponin T.cardiac High sensitivity method [Mass/Vol] < 6 ng/L <[address] [facility] Urine clarityOrdered By: Marbella Win on 01-10-2025 Clarity (U) Clear Clear [facility] Urine color determinationOrd ered By: Luis Angel Win on 01-10-2025 Color (U) Yellow Yellow [facility] Urine glucose detectionOrder ed By: Luis Angel Win on 01-10-2025 Glucose Ql (U) Normal mg/dl Normal [facility] Urine leukocyte esterase det ection by dipstickOrdered By: Luis Angel Win on 01-10-2025 Leukocyte esterase Test strip Ql (U) Negative Negative [facility] Urine pHOrdered By: Luis Angel griffin on 01-10-2025 pH (U) 7.0 [pH] 5.0 - 8.[address] [facility] Urine sediment bacteria coun t by microscopy (number/high power field)Ordered By: Luis Angel Win on 01-10-2025 Bacteria LM.HPF (Urine sed) [#/Area] 0 /[HPF] None Seen [facility] Urine specific gravity measu rementOrdered By: Luis Angel Win on 01-10-2025 Specific gravity (U) [Rel density] 1.010 1.002-1.[address] [facility] Urine urobilinogen measureme ntOrdered By: Luis Angel Win on 01-10-2025 Urobilinogen Ql (U) Normal mg/dl Normal [facility] Venous blood base excess corina surementOrdered By: Luis Angel Win on 01-10-2025 Base excess Calc (BldV) [Moles/Vol] 0 mmol/L -1.0-3.[address] [facility] Venous blood bicarbonate corina surementOrdered By: Luis Angel Win on 01-10-2025 HCO3 (Bld) [Moles/Vol] 24 mmol/L 22-26 [facility] Venous blood oxygen saturati on measurementOrdered By: Luis Angel Win on 01-10-2025 Oxygen saturation in Blood 83 % High 50-[address] [facility] Venous blood pH measurementO rdered By: Luis Angel Win on 01-10-2025 pH (BldV) 7.42 [pH] 7.32-7.[address] [facility] Venous blood partial pressur e of carbon dioxide measurementOrdered By: Luis Angel Win on 01-10-2025 CO2 (BldV) [Partial pressure] 36.8 mm[Hg] Low 41-[address] [facility] Venous blood partial pressur e of oxygen measurementOrdered By: Luis Angel Win on 01-10-2025 Oxygen (BldV) [Partial pressure] 46 mm[Hg] High 25-[address] [facility] White blood cell (WBC) count Ordered By: Luis Angel Win on 01-10-2025 WBC (Bld) [#/Vol] 6.5 10*3/uL 4.4-11.0 [facility] White blood cell countOrdere d By: Luis Angel Win on 01-10-2025 White blood cell count 0-5 SEEN /hpf 0-[address] [facility] Internal Medicine Office Vis iton 11-24-2024 Internal Medicine Office Visit Normal [facility] Anion gap in Serum or Plasma Ordered By: Hina Sampson on 11-10-2024 Anion gap [Moles/Vol] 10 mmol/L 5-15 [facility] BUN/creatinine ratioOrdered By: Hina Sampson on 11-10-2024 Urea nitrogen/Creatinine [Mass ratio] 12.3 mg/mg 10-[address] [facility] Bilirubin, totalOrdered By: Hina Sampson on 11-10-2024 Bilirubin [Mass/Vol] 0.58 mg/dL 0.00-1.30 [facility] Carbon dioxide, total [Moles /volume] in Central venous bloodOrdered By: Hina Sampson on 11-10-2024 CO2 [Moles/Vol] 22.8 mmol/L 21.0-32.[address] [facility] Chloride assayOrdered By: Susana Sampson on 11-10-2024 Chloride [Moles/Vol] 104 mmol/L 98-108 [facility] Comprehensive Metabolic Prof ilon 11-10-2024 Albumin [Mass/Vol] 4.1 g/dL Normal 3.5-5.0 [facility] Comment on above: Performed By: #### L 500.4050, [id number] ####[facility] [address] [place], [address] Albumin/Globulin [Mass ratio] 1.3 {ratio} Normal 0.9-2.[address] [facility] Comment on above: Performed By: #### L [id number], [id number] ####[facility] [address] [place], [address] ALK PHOS 131 U/L High 40-[address] [facility] Comment on above: Performed By: #### L [id number], [id number] ####[facility] [address] [place], [address] ALT [Catalytic activity/Vol] 113 U/L High <=[address] [facility] Comment on above: Performed By: #### L [id number], [id number] ####[facility] [address] [place], [address] AST [Catalytic activity/Vol] 51 U/L High <=[address] [facility] Comment on above: Performed By: #### L [id number], L5.20 ####[facility] [address] [place], [address] Bilirubin [Mass/Vol] 0.58 mg/dL Normal 0.00-1.30 [facility] Comment on above: Performed By: #### L [id number], [id number] ####[facility] [address] [place], [address] BUN/CRE 12.3 RATIO Normal 10-[address] [facility] Comment on above: Performed By: #### L [id number], [id number] ####[facility] [address] [place], [address] Calcium [Mass/Vol] 9.7 mg/dL Normal 7.6-11.0 [facility] Comment on above: Performed By: #### L [id number], L5.20 ####[facility] [address] [place], [address] Chloride [Moles/Vol] 104 mmol/L Normal 98-108 [facility] Comment on above: Performed By: #### L [id number], [id number] ####[facility] [address] [place], [address] CO2 [Moles/Vol] 22.8 mmol/L Normal 21.0-32.[address] [facility] Comment on above: Performed By: #### L [id number], L5.20 ####[facility] [address] [place], [address] Creatinine [Mass/Vol] 1.04 mg/dL Normal 0.70-1.20 [facility] Comment on above: Performed By: #### L 500.4050, L501.9520 ####[facility] [address] [place], [address] GAP 10 Normal 5-[address] [facility] Comment on above: Performed By: #### L 500.4050, L501.9520 ####[facility] [address] [place], [address] GFR/1.73 sq M.predicted among non-blacks MDRD (S/P/Bld) [Vol rate/Area] 98 mL/min/{1.73_m2} Normal >[address] [facility] Comment on above: Result Comment: mL/m in/1.73m2 CKD-EPI Creatinine Equation (2020) Performed By: #### L 500.4050, L501.9520 ####[facility] [address] [place], [address] Globulin (S) [Mass/Vol] 3.1 g/dL Normal 2.2-4.2 [facility] Comment on above: Performed By: #### L 500.4050, L501.9520 ####[facility] [address] [place], [address] Glucose [Mass/Vol] 108 mg/dL High 70-99 [facility] Comment on above: Performed By: #### L 500.4050, L501.9520 ####[facility] [address] [place], [address] Potassium [Moles/Vol] 4.1 mmol/L Normal 3.3-5.1 [facility] Comment on above: Performed By: #### L 500.4050, L501.9520 ####[facility] [address] [place], [address] Sodium [Moles/Vol] 137 mmol/L Normal 133-145 [facility] Comment on above: Performed By: #### L 500.4050, L501.9520 ####[facility] [address] [place], [address] T PROT 7.2 g/dL Normal 5.9-8.[address] [facility] Comment on above: Performed By: #### L 500.4050, L501.9520 ####[facility] [address] [place], [address] Urea nitrogen [Mass/Vol] 13 mg/dL Normal 4-[address] [facility] Comment on above: Performed By: #### L 500.4050, L501.9520 ####[facility] [address] [place], [address] Gastroenterology Visit Repor ton 11-10-2024 Gastroenterology Visit Report Normal [facility] Glomerular filtration rate ( GFR) estimation/1.73 sq m using serum, plasma, or whole bOrdered By: Hina Sampson on 11-10-2024 GFR/1.73 sq M.predicted among non-blacks MDRD (S/P/Bld) [Vol rate/Area] 98 mL/min/{1.73_m2} >[address] [facility] Comment on above: mL/min/1.73m2 CKD-EP I Creatinine Equation (2020) Laboratory - Chemistry and C hemistry - challengeOrdered By: Hina Sampson on 11-10-2024 AST [Catalytic activity/Vol] 51 U/L High <[address] [facility] Potassium measurement (mass/ volume)Ordered By: Hina Sampson on 11-10-2024 Potassium (Unsp spec) [Mass/Vol] 4.1 mmol/L 3.3-5.[address] [facility] Serum creatinine measurement (mass/volume)Ordered By: Hina Sampson on 11-10-2024 Creatinine [Mass/Vol] 1.04 mg/dL 0.70-1.20 [facility] Serum globulin measurementOr dered By: Hina Sampson on 11-10-2024 Globulin (S) [Mass/Vol] 3.1 g/dL 2.2-4.2 [facility] Serum glucose measurement (m ass/volume)Ordered By: Hina Sampson on 11-10-2024 Glucose [Mass/Vol] 108 mg/dL High 70-99 [facility] Serum or plasma alanine recinos otransferase (ALT) measurementOrdered By: Hina Sampson on 11-10-2024 ALT [Catalytic activity/Vol] 113 U/L High <[address] [facility] Serum or plasma albumin summer urement (mass/volume)Ordered By: Hina Sampson on 11-10-2024 Albumin [Mass/Vol] 4.1 g/dL 3.5-5.0 [facility] Serum or plasma albumin/glob ulin mass ratioOrdered By: Hina Sampson on 11-10-2024 Albumin/Globulin [Mass ratio] 1.3 {ratio} 0.9-2.[address] [facility] Serum or plasma alkaline nirav sphatase measurementOrdered By: Hina Sampson on 11-10-2024 ALP [Catalytic activity/Vol] 131 U/L High 40-[address] [facility] Serum or plasma calcium summer urement (mass/volume)Ordered By: Hina Sampson on 11-10-2024 Calcium [Mass/Vol] 9.7 mg/dL 7.6-11.0 [facility] Serum or plasma urea nitroge n measurement (mass/volume)Ordered By: Hina Sampson on 11-10-2024 Urea nitrogen [Mass/Vol] 13 mg/dL 4-[address] [facility] Sodium levelOrdered By: Errol Sampson on 11-10-2024 Sodium [Moles/Vol] 137 mmol/L 133-145 [facility] TSH DL <= 0.005 mIU/L QnOrde red By: Danny Walter on 11-10-2024 TSH Qn 4.080 uIU/mL 0.300-4.[address] [facility] Thyroid Stim Hormone (TSH)on 11-10-2024 TSH 4.080 uIU/mL Normal 0.300-4.[address] [facility] Comment on above: Performed By: #### L 500.4050, L501.9520 ####[facility] [address] [place], [place], [address] Total proteinOrdered By: Radha Sampson on 11-10-2024 Protein [Mass/Vol] 7.2 g/dL 5.9-8.4 [facility] Internal Medicine Office Vis iton 11-03-2024 Internal Medicine Office Visit Normal [facility] CAROLANN w/ Reflex Mult Confirmon 08-05-2024 CAROLANN,DIRECT Negative Normal Negative [facility] Comment on above: Result Comment: Perf ormed at: [facility] [id number] [place], [place] [id number] Director: Popeye Joseph PhD, Phone: [phone] Performed By: #### L 3100.5440, L803.2200, L3100.5450, L100.0100, L3300.1200 ####[facility] [address] [place], [address] ANCAon 08-05-2024 Atypical pANCA <1:20 Normal Neg:<1:[address] [facility] Comment on above: Result Comment: The atypical pANCA pattern has been observed in asignificant percentage of patients with ulcerative colitis,primary sclerosing cholangitis and autoimmune hepatitis. Performed By: #### L 3100.5440, L803.2200, L3100.5450, L100.0100, L3300.1200 ####[facility] [address] [place], [place], [address] Cytoplasmic Ab <1:20 Normal Neg:<1:[address] [facility] Comment on above: Performed By: #### L 3100.5440, L803.2200, L3100.5450, L100.0100, L3300.1200 ####[facility] [address] [place], [address] Perinuclear Ab. <1:20 Normal Neg:<1:[address] [facility] Comment on above: Result Comment: The presence of positive fluorescence exhibiting P-ANCA orC-ANCA patterns alone is not specific for the diagnosis ofWegener's Granulomatosis (WG) or microscopic polyangiitis.Decisions about treatment should not be based solely onANCA IFA results. The International ANCA Group Consensusrecommends follow up testing of positive sera with both OH-3 and MPO-ANCA enzyme immunoassays. As many as 5% serumsamples are positive only by EIA. Ref. AM J Clin Qgetmz9987;111:507-513. Performed By: #### L 3100.5440, L803.2200, L3100.5450, L100.0100, L3300.1200 ####[facility] [address] [place], [place], [id number] Anti-Smooth Muscle ABSon ANTISMOOTH MUSC 7 Units Normal 0-[address] [facility] Comment on above: Result Comment: Nega tive 0 - 19 Weak positive 20 - 30 Moderate to strong positive >30 Actin Antibodies are found in 52-85% of patients with autoimmune hepatitis or chronic active hepatitis and in 22% of patients with primary biliary cirrhosis.Performed at: [facility] [place] [id number] Director: Popeye Joseph PhD, Phone: [phone] Performed By: #### L 3100.5440, L803.2200, L3100.5450, L100.0100, L3300.1200 ####[facility] [address] [place], [address] CAROLANN Comprehensive Panelon CAROLANN TABLE TNP Normal [facility] Comment on above: Performed By: #### L 3100.5440, L803.2200, L3100.5450, L100.0100, L3300.1200 ####[facility] [address] [place], [place], [address] Absolute lymphocyte countOrd ered By: Hina Sampson on 08-04-2024 Lymphocytes Auto (Unsp spec) [#/Vol] 1.74 10*3/uL 0.83-4.[address] [facility] Absolute neutrophil countOrd ered By: Hina Sampson on 08-04-2024 Neutrophils (Bld) [#/Vol] 4.1 10*3/uL 2.0-7.[address] [facility] Automated lymphocyte count a s percentage of total leukocytesOrdered By: Hina Adrián on 08-04-2024 Lymphocytes/100 WBC Auto (Unsp spec) 25.7 % 19-[address] [facility] Basophil percentageOrdered B y: Hina Sampson on 08-04-2024 Basophils/100 WBC (Bld) 0.6 % 0-1 [facility] CBC W/Diff, Automatedon Absolute Lymph 1.74 X10 3/uL Normal 0.83-4.[address] [facility] Comment on above: Performed By: #### L 3100.5440, L803.2200, L3100.5450, L100.0100, L3300.1200 ####[facility] [address] [place], [address] Absolute Neut 4.1 X10 3/uL Normal 2.0-7.[address] [facility] Comment on above: Performed By: #### L 3100.5440, L803.2200, L3100.5450, L100.0100, L3300.1200 ####[facility] [address] [place], [address] Basophils/100 WBC (Bld) 0.6 % Normal 0-1 [facility] Comment on above: Performed By: #### L 3100.5440, L803.2200, L3100.5450, L100.0100, L3300.1200 ####[facility] [address] [place], [address] Eosinophils/100 WBC (Bld) 4.6 % Normal 0-[address] [facility] Comment on above: Performed By: #### L 3100.5440, L803.2200, L3100.5450, L100.0100, L3300.1200 ####[facility] [address] [place], [address] Erythrocyte distribution width (RBC) [Ratio] 12.0 % Normal 11.6-14.[address] [facility] Comment on above: Performed By: #### L 3100.5440, L803.2200, L3100.5450, L100.0100, L3300.1200 ####[facility] [address] [place], [address] Hematocrit (Bld) [Volume fraction] 45.4 % Normal 40-[address] [facility] Comment on above: Performed By: #### L 3100.5440, L803.2200, L3100.5450, L100.0100, L3300.1200 ####[facility] [address] [place], [address] Hemoglobin (Bld) [Mass/Vol] 15.7 g/dL Normal 13.0-16.[address] [facility] Comment on above: Performed By: #### L 3100.5440, L803.2200, L3100.5450, L100.0100, L3300.1200 ####[facility] [address] [place], [address] IG% 0.400 Normal 0.0-0.[address] [facility] Comment on above: Result Comment: IG% - Immature Granulocytes (promyelocytes, myelocytes andmetamyelocytes) > 1% indicates that a LEFT SHIFT is Present. Performed By: #### L 3100.5440, L803.2200, L3100.5450, L100.0100, L3300.1200 ####[facility] [address] [place], [address] Lymphocytes/100 WBC (Bld) 25.7 % Normal 19-[address] [facility] Comment on above: Performed By: #### L 3100.5440, L803.2200, L3100.5450, L100.0100, L3300.1200 ####[facility] [address] [place], [address] MCH (RBC) [Entitic mass] 30.8 pg Normal 27.0-32.[address] [facility] Comment on above: Performed By: #### L 3100.5440, L803.2200, L3100.5450, L100.0100, L3300.1200 ####[facility] [address] [place], [address] MCHC (RBC) [Mass/Vol] 34.6 g/dL Normal 32-36 [facility] Comment on above: Performed By: #### L 3100.5440, L803.2200, L3100.5450, L100.0100, L3300.1200 ####[facility] [address] [place], [address] MCV (RBC) [Entitic vol] 89.0 fL Normal 80-94 [facility] Comment on above: Performed By: #### L 3100.5440, L803.2200, L3100.5450, L100.0100, L3300.1200 ####[facility] [address] [place], [address] Monocytes/100 WBC (Bld) 8.0 % Normal 0-10 [facility] Comment on above: Performed By: #### L 3100.5440, L803.2200, L3100.5450, L100.0100, L3300.1200 ####[facility] [address] [place], [address] Neutrophils/100 WBC (Bld) 60.7 % Normal 47-[address] [facility] Comment on above: Performed By: #### L 3100.5440, L803.2200, L3100.5450, L100.0100, L3300.1200 ####[facility] [address] [place], [address] Nucleated RBC (Bld) [#/Vol] 0 10*3/uL Normal 0-[address] [facility] Comment on above: Performed By: #### L 3100.5440, L803.2200, L3100.5450, L100.0100, L3300.1200 ####[facility] [address] [place], [address] Platelet mean volume (Bld) [Entitic vol] 9.2 fL Normal 6.2-12.[address] [facility] Comment on above: Performed By: #### L 3100.5440, L803.2200, L3100.5450, L100.0100, L3300.1200 ####[facility] [address] [place], [address] Platelets (Bld) [#/Vol] 256 10*3/uL Normal 150-[address] [facility] Comment on above: Performed By: #### L 3100.5440, L803.2200, L3100.5450, L100.0100, L3300.1200 ####[facility] [address] [place], [address] RBC (Bld) [#/Vol] 5.10 10*6/uL Normal 4.6-6.2 [facility] Comment on above: Performed By: #### L 3100.5440, L803.2200, L3100.5450, L100.0100, L3300.1200 ####[facility] [address] [place], [address] RDW SD 39.3 fl Normal 35.1-43.[address] [facility] Comment on above: Performed By: #### L 3100.5440, L803.2200, L3100.5450, L100.0100, L3300.1200 ####[facility] [address] [place], [address] WBC (Bld) [#/Vol] 6.8 10*3/uL Normal 4.4-11.0 [facility] Comment on above: Performed By: #### L 3100.5440, L803.2200, L3100.5450, L100.0100, L3300.1200 ####[facility] [address] [place], [address] Eosinophil percentageOrdered By: Hina Sampson on 08-04-2024 Eosinophils/100 WBC (Bld) 4.6 % 0-[address] [facility] Erythrocyte distribution wid th ratioOrdered By: Hina Sampson on 08-04-2024 Erythrocyte distribution width (RBC) [Ratio] 12.0 % 11.6-14.[address] [facility] Erythrocyte distribution wid th standard deviationOrdered By: Hinagalina Sampson on 08-04-2024 Erythrocyte distribution width (RBC) [Ratio] 39.3 fl 35.1-43.[address] [facility] Gastroenterology Visit Repor ton 08-04-2024 Gastroenterology Visit Report Normal [facility] Hematocrit Auto (Bld) [Volum e fraction]Ordered By: Hina Sampson on 08-04-2024 Hematocrit (Bld) [Volume fraction] 45.4 % 40-[address] [facility] Hemoglobin measurementOrdere d By: Hina Sampson on 08-04-2024 Hemoglobin (Bld) [Mass/Vol] 15.7 g/dL 13.0-16.[address] [facility] Immature granulocytes/100 WB C Auto (Bld)Ordered By: Hina Sampson on 08-04-2024 Immature granulocytes/100 WBC (Bld) 0.400 % 0.0-0.[address] [facility] Comment on above: IG% - Immature Granu locytes (promyelocytes, myelocytes and metamyelocytes) > 1% indicates that a LEFT SHIFT is Present. MCV (mean corpuscular volume ) determinationOrdered By: Hina Sampson on 08-04-2024 MCV (RBC) [Entitic vol] 89.0 fL 80-94 [facility] Mean corpuscular hemoglobin (MCH) determinationOrdered By: Hinagalina Sampson on 08-04-2024 MCH (RBC) [Entitic mass] 30.8 pg 27.0-32.[address] [facility] Mean corpuscular hemoglobin concentration (MCHC) determinationOrdered By: Hina Sampson on 08-04-2024 MCHC (RBC) [Mass/Vol] 34.6 g/dL 32-36 [facility] Mean platelet volume determi nationOrdered By: Hina Sampson on 08-04-2024 Platelet mean volume (Bld) [Entitic vol] 9.2 fL 6.2-12.[address] [facility] Monocyte percentageOrdered B y: Hina Sampson on 08-04-2024 Monocytes/100 WBC (Bld) 8.0 % 0-10 [facility] Neutrophil percentageOrdered By: Hina Sampson on 08-04-2024 Neutrophils/100 WBC (Bld) 60.7 % 47-[address] [facility] Nucleated red blood cell per centageOrdered By: Hina Sampson on 08-04-2024 Nucleated RBC/100 WBC (Bld) [Ratio] 0 % 0-[address] [facility] Platelet countOrdered By: Susana Sampson on 08-04-2024 Platelets (Bld) [#/Vol] 256 10*3/uL 150-[address] [facility] RBC Auto (Bld) [#/Vol]Ordere d By: Hina Sampson on 08-04-2024 RBC (Bld) [#/Vol] 5.10 10*6/uL 4.6-6.2 [facility] Serum DNA double strand anti body assay (units/volume)Ordered By: Hina Sampson on 08-04-2024 DNA double strand Ab Qn (S) [facility] Comment on above: Test not performed Serum Scl-70 antibody assay (units/volume)Ordered By: Hina Sampson on 08-04-2024 SCL-70 extractable nuclear Ab Qn (S) [facility] Comment on above: Test not performed Serum classic neutrophil cyt oplasmic antibody assay (units/volume)Ordered By: Hina Sampson on 08-04-2024 Neutrophil cytoplasmic Ab.classic Qn (S) <1:20 titer Neg:<1:[address] [facility] Serum or plasma actin IgG an tibody assay (units/volume)Ordered By: Hina Sampson on 08-04-2024 Actin IgG Qn 7 Units 0-[address] [facility] Comment on above: Negative 0 - 19 Weak positive 20 - 30 Moderate to strong positive >30 Actin Antibodies are found in 52-85% of patients with autoimmune hepatitis or chronic active hepatitis and in 22% of patients with primary biliary cirrhosis.Performed at: [facility] [id number] Director: Popeye Joseph PhD, Phone: [phone] Serum perinuclear neutrophil cytoplasmic antibody titer by immunofluorescenceOrdered By: Hina Sampson on 08-04-2024 Neutrophil cytoplasmic Ab.perinuclear IF (S) [Titer] <1:20 titer Neg:<1:[address] [facility] Comment on above: The presence of posi tive fluorescence exhibiting P-ANCA orC-ANCA patterns alone is not specific for the diagnosis ofWegener's Granulomatosis (WG) or microscopic polyangiitis.Decisions about treatment should not be based solely onANCA IFA results. The [employer] ANCA Group Consensusrecommends follow up testing of positive sera with both OH-3 and MPO-ANCA enzyme immunoassays. As many as 5% serumsamples are positive only by EIA. Ref. AM J Clin Eybdrp3227;111:507-513. White blood cell (WBC) count Ordered By: Hina Sampson on 08-04-2024 WBC (Bld) [#/Vol] 6.8 10*3/uL 4.4-11.0 [facility] Absolute lymphocyte countOrd ered By: Jese Velez on 07-23-2024 Lymphocytes Auto (Unsp spec) [#/Vol] 1.82 10*3/uL 0.83-4.[address] [facility] Absolute neutrophil countOrd ered By: Jese Velez on 07-23-2024 Neutrophils (Bld) [#/Vol] 5.3 10*3/uL 2.0-7.[address] [facility] Albumin to globulin ratioOrd ered By: Jese Velez on 07-23-2024 Albumin/Globulin [Mass ratio] 0.9 {ratio} 0.9-2.[address] [facility] Automated lymphocyte count a s percentage of total leukocytesOrdered By: Jese Velez on 07-23-2024 Lymphocytes/100 WBC Auto (Unsp spec) 23.2 % 19-[address] [facility] Basophil percentageOrdered B y: Jese Velez on 07-23-2024 Basophils/100 WBC (Bld) 0.8 % 0-1 [facility] Bilirubin, totalOrdered By: Jese Velez on 07-23-2024 Bilirubin [Mass/Vol] 0.60 mg/dL 0.20-1.00 [facility] Comment on above: For patients on eltr ombopag therapy, use of Dimension [place] TBIL is not recommended. Blood urea nitrogen (BUN)/cr eatinine ratioOrdered By: Jese Rosie on 07-23-2024 Urea nitrogen/Creatinine [Mass ratio] 9.8 mg/mg Low 10-[address] [facility] CBC W/Diff, Automatedon 07-01 Absolute Lymph 1.82 X10 3/uL Normal 0.83-4.[address] [facility] Comment on above: Performed By: #### L 500.4050, L100.0100 ####[facility] [address] [place], [address] Absolute Neut 5.3 X10 3/uL Normal 2.0-7.[address] [facility] Comment on above: Performed By: #### L 500.4050, L100.0100 ####[facility] [address] [place], [address] Basophils/100 WBC (Bld) 0.8 % Normal 0-1 [facility] Comment on above: Performed By: #### L 500.4050, L100.0100 ####[facility] [address] [place], [address] Eosinophils/100 WBC (Bld) 2.2 % Normal 0-[address] [facility] Comment on above: Performed By: #### L 500.4050, L100.0100 ####[facility] [address] [place], [address] Erythrocyte distribution width (RBC) [Ratio] 12.0 % Normal 11.6-14.[address] [facility] Comment on above: Performed By: #### L 500.4050, L100.0100 ####[facility] [address] [place], [address] Hematocrit (Bld) [Volume fraction] 47.0 % Normal 40-[address] [facility] Comment on above: Performed By: #### L 500.4050, L100.0100 ####[facility] [address] [place], [address] Hemoglobin (Bld) [Mass/Vol] 16.3 g/dL Normal 13.0-16.[address] [facility] Comment on above: Performed By: #### L 500.4050, L100.0100 ####[facility] [address] [place], [address] IG% 0.100 Normal 0.0-0.[address] [facility] Comment on above: Result Comment: IG% - Immature Granulocytes (promyelocytes, myelocytes andmetamyelocytes) > 1% indicates that a LEFT SHIFT is Present. Performed By: #### L 500.4050, L100.0100 ####[facility] [address] [place], [address] Lymphocytes/100 WBC (Bld) 23.2 % Normal 19-[address] [facility] Comment on above: Performed By: #### L 500.4050, L100.0100 ####[facility] [address] [place], [address] MCH (RBC) [Entitic mass] 30.7 pg Normal 27.0-32.[address] [facility] Comment on above: Performed By: #### L 500.4050, L100.0100 ####[facility] [address] [place], [address] MCHC (RBC) [Mass/Vol] 34.7 g/dL Normal 32-36 [facility] Comment on above: Performed By: #### L 500.4050, L100.0100 ####[facility] [address] [place], [address] MCV (RBC) [Entitic vol] 88.5 fL Normal 80-94 [facility] Comment on above: Performed By: #### L 500.4050, L100.0100 ####[facility] [address] [place], [address] Monocytes/100 WBC (Bld) 6.4 % Normal 0-10 [facility] Comment on above: Performed By: #### L 500.4050, L100.0100 ####[facility] [address] [place], [address] Neutrophils/100 WBC (Bld) 67.3 % Normal 47-[address] [facility] Comment on above: Performed By: #### L 500.4050, L100.0100 ####[facility] [address] [place], [address] Nucleated RBC (Bld) [#/Vol] 0 10*3/uL Normal 0-[address] [facility] Comment on above: Performed By: #### L 500.4050, L100.0100 ####[facility] [address] [place], [address] Platelet mean volume (Bld) [Entitic vol] 9.5 fL Normal 6.2-12.[address] [facility] Comment on above: Performed By: #### L 500.4050, L100.0100 ####[facility] [address] [place], [address] Platelets (Bld) [#/Vol] 253 10*3/uL Normal 150-[address] [facility] Comment on above: Performed By: #### L 500.4050, L100.0100 ####[facility] [address] [place], [address] RBC (Bld) [#/Vol] 5.31 10*6/uL Normal 4.6-6.2 [facility] Comment on above: Performed By: #### L 500.4050, L100.0100 ####[facility] [address] [place], [address] RDW SD 38.5 fl Normal 35.1-43.[address] [facility] Comment on above: Performed By: #### L 500.4050, L100.0100 ####[facility] [address] [place], [address] WBC (Bld) [#/Vol] 7.8 10*3/uL Normal 4.4-11.0 [facility] Comment on above: Performed By: #### L 500.4050, L100.0100 ####[facility] [address] [place], [address] Carbon dioxide measurementOr dered By: Jese Velez on 07-23-2024 CO2 [Moles/Vol] 27.0 mmol/L 21.0-32.[address] [facility] Chloride measurementOrdered By: Jese Velez on 07-23-2024 Chloride [Moles/Vol] 108 mmol/L High 98-107 [facility] Comprehensive Metabolic Prof ilon 07-23-2024 Albumin [Mass/Vol] 3.8 g/dL Normal 3.2-5.0 [facility] Comment on above: Performed By: #### L 500.4050, L100.0100 ####[facility] [address] [place], [address] Albumin/Globulin [Mass ratio] 0.9 {ratio} Normal 0.9-2.[address] [facility] Comment on above: Performed By: #### L 500.4050, L100.0100 ####[facility] [address] [place], [address] ALK P 135 U/L High 45-[address] [facility] Comment on above: Performed By: #### L 500.4050, L100.0100 ####[facility] [address] [place], [address] ALT [Catalytic activity/Vol] 115 U/L High 16-[address] [facility] Comment on above: Performed By: #### L 500.4050, L100.0100 ####[facility] [address] [place], [address] AST [Catalytic activity/Vol] 44 U/L High 15-[address] [facility] Comment on above: Performed By: #### L 500.4050, L100.0100 ####[facility] [address] [place], [address] Bilirubin [Mass/Vol] 0.60 mg/dL Normal 0.20-1.00 [facility] Comment on above: Result Comment: For patients on eltrombopag therapy, use of Dimension [place] TBIL is not recommended. Performed By: #### L 500.4050, L100.0100 ####[facility] [address] [place], [address] BUN/CRE 9.8 RATIO Low 10-[address] [facility] Comment on above: Performed By: #### L 500.4050, L100.0100 ####[facility] [address] [place], [address] CA,Total 9.6 mg/dL Normal 8.5-10.[address] [facility] Comment on above: Performed By: #### L 500.4050, L100.0100 ####[facility] [address] [place], [address] Chloride [Moles/Vol] 108 mmol/L High 98-107 [facility] Comment on above: Performed By: #### L 500.4050, L100.0100 ####[facility] [address] [place], [address] CO2 [Moles/Vol] 27.0 mmol/L Normal 21.0-32.[address] [facility] Comment on above: Performed By: #### L 500.4050, L100.0100 ####[facility] [address] [place], [address] Creatinine [Mass/Vol] 1.33 mg/dL High 0.70-1.30 [facility] Comment on above: Result Comment: The validity of the calculated GFR GFRAA in patients over70 years has not been determined. Clinical correlation isessential. Performed By: #### L 500.4050, L100.0100 ####[facility] [address] [place], [address] ECRCL 103.04 ml/min Normal [facility] Comment on above: Performed By: #### L 500.4050, L100.0100 ####[facility] [address] [place], [address] EST GFR - AA 80 mL/min Normal >[address] [facility] Comment on above: Result Comment: Afri can Indian GFR Calc Performed By: #### L 500.4050, L100.0100 ####[facility] [address] [place], [address] GAP 6 Normal 5-[address] [facility] Comment on above: Performed By: #### L 500.4050, L100.0100 ####[facility] [address] [place], [address] GFR/1.73 sq M.predicted among non-blacks MDRD (S/P/Bld) [Vol rate/Area] 66 mL/min/{1.73_m2} Normal >[address] [facility] Comment on above: Result Comment: Non- GFR Calc Performed By: #### L 500.4050, L100.0100 ####[facility] [address] [place], [address] Globulin (S) [Mass/Vol] 4.1 g/dL Normal 2.2-4.2 [facility] Comment on above: Performed By: #### L 500.4050, L100.0100 ####[facility] [address] [place], [address] Glucose [Mass/Vol] 101 mg/dL Normal 74-106 [facility] Comment on above: Result Comment: Fast ing Glucose result from 100 to 125 mg/dLsuggests IMPAIRED HOMEOSTASIS per A.D.A. criteria. Performed By: #### L 500.4050, L100.0100 ####[facility] [address] [place], [address] Potassium [Moles/Vol] 3.7 mmol/L Normal 3.5-5.1 [facility] Comment on above: Performed By: #### L 500.4050, L100.0100 ####[facility] [address] [place], [address] Sodium [Moles/Vol] 141 mmol/L Normal 136-145 [facility] Comment on above: Performed By: #### L 500.4050, L100.0100 ####[facility] [address] [place], [address] T PROT 7.9 g/dL Normal 6.4-8.[address] [facility] Comment on above: Performed By: #### L 500.4050, L100.0100 ####[facility] [address] [place], [address] Urea nitrogen [Mass/Vol] 13 mg/dL Normal 7-[address] [facility] Comment on above: Performed By: #### L 500.4050, L100.0100 ####[facility] [address] [place], [address] Emergency Department Summary on 07-23-2024 Emergency Department Summary Normal [facility] Eosinophil percentageOrdered By: Jese Velez on 07-23-2024 Eosinophils/100 WBC (Bld) 2.2 % 0-[address] [facility] Erythrocyte distribution wid th ratioOrdered By: Jese Velez on 07-23-2024 Erythrocyte distribution width (RBC) [Ratio] 12.0 % 11.6-14.[address] [facility] Erythrocyte distribution wid th standard deviationOrdered By: Jese Velez on 07-23-2024 Erythrocyte distribution width (RBC) [Ratio] 38.5 fl 35.1-43.[address] [facility] Glomerular filtration rate ( GFR) estimationOrdered By: Jese Velez on 07-23-2024 GFR/1.73 sq M.predicted among non-blacks MDRD (S/P/Bld) [Vol rate/Area] 66 mL/min/{1.73_m2} >[address] [facility] Comment on above: Non- GFR Calc Glucose measurementOrdered B y: Jese Velez on 07-23-2024 Glucose [Mass/Vol] 101 mg/dL 74-106 [facility] Comment on above: Fasting Glucose resu lt from 100 to 125 mg/dL suggests IMPAIRED HOMEOSTASIS per A.D.A. criteria. Hematocrit Auto (Bld) [Volum e fraction]Ordered By: Jese Velez on 07-23-2024 Hematocrit (Bld) [Volume fraction] 47.0 % 40-[address] [facility] Hemoglobin measurementOrdere d By: Jese Velez on 07-23-2024 Hemoglobin (Bld) [Mass/Vol] 16.3 g/dL 13.0-16.[address] [facility] Immature granulocytes/100 WB C Auto (Bld)Ordered By: Jese Velez on 07-23-2024 Immature granulocytes/100 WBC (Bld) 0.100 % 0.0-0.[address] [facility] Comment on above: IG% - Immature Granu locytes (promyelocytes, myelocytes and metamyelocytes) > 1% indicates that a LEFT SHIFT is Present. Laboratory - Chemistry and C hemistry - challengeOrdered By: Jese Velez on 07-23-2024 AST [Catalytic activity/Vol] 44 U/L High 15-[address] [facility] MCV (mean corpuscular volume ) determinationOrdered By: Jese Velez on 07-23-2024 MCV (RBC) [Entitic vol] 88.5 fL 80-94 [facility] Mean corpuscular hemoglobin (MCH) determinationOrdered By: Jese Velez on 07-23-2024 MCH (RBC) [Entitic mass] 30.7 pg 27.0-32.[address] [facility] Mean corpuscular hemoglobin concentration (MCHC) determinationOrdered By: Jese Velez on 07-23-2024 MCHC (RBC) [Mass/Vol] 34.7 g/dL 32-36 [facility] Mean platelet volume determi nationOrdered By: Jese Velez on 07-23-2024 Platelet mean volume (Bld) [Entitic vol] 9.5 fL 6.2-12.[address] [facility] Monocyte percentageOrdered B y: Jese Velez on 07-23-2024 Monocytes/100 WBC (Bld) 6.4 % 0-10 [facility] Neutrophil percentageOrdered By: Jese Velez on 07-23-2024 Neutrophils/100 WBC (Bld) 67.3 % 47-[address] [facility] Nucleated red blood cell per centageOrdered By: Jese Velez on 07-23-2024 Nucleated RBC/100 WBC (Bld) [Ratio] 0 % 0-[address] [facility] Platelet countOrdered By: Meliza Velez on 07-23-2024 Platelets (Bld) [#/Vol] 253 10*3/uL 150-[address] [facility] Potassium measurementOrdered By: Jese Velez on 07-23-2024 Potassium [Moles/Vol] 3.7 mmol/L 3.5-5.1 [facility] RBC Auto (Bld) [#/Vol]Ordere d By: Jese Velez on 07-23-2024 RBC (Bld) [#/Vol] 5.31 10*6/uL 4.6-6.2 [facility] Serum anion gap measurementO rdered By: Jese Velez on 07-23-2024 Anion gap [Moles/Vol] 6 mmol/L 5-15 [facility] Serum globulin measurementOr dered By: Jese Velez on 07-23-2024 Globulin (S) [Mass/Vol] 4.1 g/dL 2.2-4.2 [facility] Serum or plasma alanine recinos otransferase (ALT) measurementOrdered By: Jese Velez on 07-23-2024 ALT [Catalytic activity/Vol] 115 U/L High 16-[address] [facility] Serum or plasma albumin summer urement (mass/volume)Ordered By: Jese Velez on 07-23-2024 Albumin [Mass/Vol] 3.8 g/dL 3.2-5.0 [facility] Serum or plasma alkaline nirav sphatase measurementOrdered By: Jese Velez on 07-23-2024 ALP [Catalytic activity/Vol] 135 U/L High 45-[address] [facility] Serum or plasma calcium smumer urement (mass/volume)Ordered By: Jese Velez on 07-23-2024 Calcium [Mass/Vol] 9.6 mg/dL 8.5-10.1 [facility] Serum or plasma creatinine m easurement (mass/volume)Ordered By: Jese Velez on 07-23-2024 Creatinine [Mass/Vol] 1.33 mg/dL High 0.70-1.30 [facility] Comment on above: The validity of the calculated GFR & GFRAA in patients over 70 years has not been determined. Clinical correlation is essential. Serum or plasma urea nitroge n measurement (mass/volume)Ordered By: Jese Velez on 07-23-2024 Urea nitrogen [Mass/Vol] 13 mg/dL 7-[address] [facility] Sodium levelOrdered By: Jese Velez on 07-23-2024 Sodium [Moles/Vol] 141 mmol/L 136-145 [facility] Total proteinOrdered By: Nerissa Velez on 07-23-2024 Protein [Mass/Vol] 7.9 g/dL 6.4-8.2 [facility] White blood cell (WBC) count Ordered By: Jese Velez on 07-23-2024 WBC (Bld) [#/Vol] 7.8 10*3/uL 4.4-11.0 [facility] MRCP Abdomen without Contras ton 07-01-2024 MRCP Abdomen without Contrast Normal [facility] Internal Medicine Office Vis iton 06-09-2024 Internal Medicine Office Visit Normal [facility] Knee 3 Viewson 06-09-2024 Knee 3 Views Normal [facility] Angiotensin Convert Enzymeon 06-08-2024 ANGIOT-CONV.ENZ 74 U/L Normal 14-[address] [facility] Comment on above: Order Comment: N Result Comment: Perf ormed at: CB - [facility] [address] [id number] Director: Popeye Joseph PhD, Phone: [phone] Performed By: #### L 3200.0500, L3100.6900, L3400.8000, L3100.3425 ####[facility] [address] [place], [address] HUGO + Protein Elect, Serumon 06-08-2024 Albumin [Mass/Vol] 3.6 g/dL Normal 2.9-4.4 [facility] Comment on above: Order Comment: N Performed By: #### L 3200.0500, L3100.6900, L3400.8000, L3100.3425 ####[facility] [address] [place], [address] Albumin/Globulin [Mass ratio] 1.1 {ratio} Normal 0.7-1.[address] [facility] Comment on above: Order Comment: N Performed By: #### L 3200.0500, L3100.6900, L3400.8000, L3100.3425 ####[facility] [address] [place], [address] AENZY-6-UHDM 0.3 g/dL Normal 0.0-0.[address] [facility] Comment on above: Order Comment: N Performed By: #### L 3200.0500, L3100.6900, L3400.8000, L3100.3425 ####[facility] [address] [place], [address] UDVZR-8-PRFY 0.8 g/dL Normal 0.4-1.[address] [facility] Comment on above: Order Comment: N Performed By: #### L 3200.0500, L3100.6900, L3400.8000, L3100.3425 ####[facility] [address] [place], [address] BETA GLOBULIN 1.2 g/dL Normal 0.7-1.[address] [facility] Comment on above: Order Comment: N Performed By: #### L 3200.0500, L3100.6900, L3400.8000, L3100.3425 ####[facility] [address] [place], [address] GAMMA GLOBULIN 1.3 g/dL Normal 0.4-1.[address] [facility] Comment on above: Order Comment: N Performed By: #### L 3200.0500, L3100.6900, L3400.8000, L3100.3425 ####[facility] [address] [place], [address] Globulin (S) [Mass/Vol] 3.6 g/dL Normal 2.2-3.9 [facility] Comment on above: Order Comment: N Performed By: #### L 3200.0500, L3100.6900, L3400.8000, L3100.3425 ####[facility] [address] [place], [address] HUGO RESULT,S Comment Normal . [facility] Comment on above: Order Comment: N Result Comment: No m onoclonality detected. Performed By: #### L 3200.0500, L3100.6900, L3400.8000, L3100.3425 ####[facility] [address] [place], [address] IMMUNOGLOB A QN 527 mg/dL High 90-[address] [facility] Comment on above: Order Comment: N Performed By: #### L 3200.0500, L3100.6900, L3400.8000, L3100.3425 ####[facility] [address] [place], [address] IMMUNOGLOB M QN 27 mg/dL Normal 20-[address] [facility] Comment on above: Order Comment: N Performed By: #### L 3200.0500, L3100.6900, L3400.8000, L3100.3425 ####[facility] [address] [place], [address] M-Ron Not Observed Normal Not Observed [facility] Comment on above: Order Comment: N Performed By: #### L 3200.0500, L3100.6900, L3400.8000, L3100.3425 ####[facility] [address] [place], [address] NOTE: Comment Normal . [facility] Comment on above: Order Comment: N Result Comment: Prot ein electrophoresis scan will follow via computer,mail, or parts representative delivery. Performed By: #### L 3200.0500, L3100.6900, L3400.8000, L3100.3425 ####[facility] [address] [place], [address] Protein [Mass/Vol] 7.2 g/dL Normal 6.0-8.5 [facility] Comment on above: Order Comment: N Performed By: #### L 3200.0500, L3100.6900, L3400.8000, L3100.3425 ####[facility] [address] [place], [address] IgG Subclasseson 06-08-2024 IgG, SUBCLASS 1 633 mg/dL Normal 248-[address] [facility] Comment on above: Order Comment: N Performed By: #### L 3200.0500, L3100.6900, L3400.8000, L3100.3425 ####[facility] [address] [place], [address] IgG, SUBCLASS 2 322 mg/dL Normal 130-[address] [facility] Comment on above: Order Comment: N Performed By: #### L 3200.0500, L3100.6900, L3400.8000, L3100.3425 ####[facility] [address] [place], [address] IgG, SUBCLASS 3 82 mg/dL Normal 15-[address] [facility] Comment on above: Order Comment: N Performed By: #### L 3200.0500, L3100.6900, L3400.8000, L3100.3425 ####[facility] [address] [place], [address] IgG, SUBCLASS 4 87 mg/dL Normal 2-[address] [facility] Comment on above: Order Comment: N Performed By: #### L 3200.0500, L3100.6900, L3400.8000, L3100.3425 ####[facility] [address] [place], [address] IGG,QUANT 1183 mg/dL Normal 603-[address] [facility] Comment on above: Order Comment: N Performed By: #### L 3200.0500, L3100.6900, L3400.8000, L3100.3425 ####[facility] [address] [place], [address] Quantiferon TB-Gold+on 06-08 QFT MITOGEN YOGESH > 10.[address] [facility] Comment on above: Order Comment: N Performed By: #### L 3200.0500, L3100.6900, L3400.8000, L3100.3425 ####[facility] [address] [place], [address] QFT NIL VALUE 0.04 IU/mL Normal . [facility] Comment on above: Order Comment: N Performed By: #### L 3200.0500, L3100.6900, L3400.8000, L3100.3425 ####[facility] [address] [place], [address] QFT TB GOLD+ Comment Normal . [facility] Comment on above: Order Comment: N Result Comment: Toni tiFERON-TB Gold Plus is a qualitative indirect test forM tuberculosis infection (including disease) and isintended for use in conjunction with risk assessment,radiography, and other medical and diagnostic evaluations.The QuantiFERON-TB Gold Plus result is determined bysubtracting the Nil value from either TB antigen (Ag)value. The Mitogen tube serves as a control for the test. Performed By: #### L 3200.0500, L3100.6900, L3400.8000, L3100.3425 ####[facility] [address] [place], [address] QFT TB POS CRIT Negative Normal Negative [facility] Comment on above: Order Comment: N Result Comment: No r esponse to M tuberculosis antigens detected.Infection with M tuberculosis is unlikely, but high riskindividuals should be considered for additional testing(ATS/IDSA/CDC Clinical Practice Guidelines, 2017). Thereference range is an Antigen minus Nil result of <0.35IU/mL.The specimen received for QuantiFERON testing was incubatedby the ordering institution. Specific procedures outlinedin our Directory of Services and in the package insert forthe QuantiFERON Gold (In Tube) test must be followed toenable for proper stimulation of cells for the productionof interferon gamma. Chemiluminescence immunoassaymethodology Performed By: #### L 3200.0500, L3100.6900, L3400.8000, L3100.3425 ####[facility] [address] [place], [address] QFT TB1+ AG YOGESH 0.04 IU/mL Normal . [facility] Comment on above: Order Comment: N Performed By: #### L 3200.0500, L3100.6900, L3400.8000, L3100.3425 ####[facility] [address] [place], [address] QFT TB2+ AG YOGESH 0.06 IU/mL Normal . [facility] Comment on above: Order Comment: N Performed By: #### L 3200.0500, L3100.6900, L3400.8000, L3100.3425 ####[facility] [address] [place], [address] Abdomen without IV Contrasto n 05-28-2024 Abdomen without IV Contrast Normal [facility] Operative Reporton Operative Report Normal [facility] Trichrome (control)on 2023 Trichrome (control) Normal [facility] Comment on above: Performed By: #### P TRI ####[facility] [address] [place], [address] Partial Thromboplast Timeon 05-26-2024 aPTT Coag (Bld) [Time] 25.3 s Normal 24.1-36.2 [facility] Comment on above: Performed By: #### L 300.3900, L100.1900, L300.4310 ####[facility] [address] [place], [address] Platelet Counton 05-26-2024 Platelets (Bld) [#/Vol] 268 10*3/uL Normal 150-[address] [facility] Comment on above: Performed By: #### L 300.3900, L100.1900, L300.4310 ####[facility] [address] [place], [address] Prothrombin Time w/INRon INR Coag (PPP) [Relative time] 0.9 {INR} Normal [facility] Comment on above: Performed By: #### L 300.3900, L100.1900, L300.4310 ####[facility] [address] [place], [address] PT Coag (PPP) [Time] 12.6 s Normal 11.7-14.9 [facility] Comment on above: Performed By: #### L 300.3900, L100.1900, L300.4310 ####[facility] [address] [place], [address] L2100.0000on 05-05-2024 ACCA 36 units Normal 0-[address] [facility] Comment on above: Result Comment: Nega tive: <80 Equivocal: 80-90 Positive: >90 Performed By: #### L 2100.0000, L100.0100, L500.4050 ####[facility] [address] [place], [address] ALCA 24 units Normal 0-[address] [facility] Comment on above: Result Comment: Nega tive:<55 Equivocal: 55-60 Positive: >60 Performed By: #### L 2100.0000, L100.0100, L500.4050 ####[facility] [address] [place], [address] AMCA 0 units Normal 0-[address] [facility] Comment on above: Result Comment: Nega tive: <90 Equivocal: 90-100 Positive: >100 This test was developed and its performance characteristics determined by [employer]. It has not been cleared or approved by the Food and Drug Administration. The FDA has determined that such clearance or approval is not necessary. Performed By: #### L 2100.0000, L100.0100, L500.4050 ####[facility] [address] [place], [address] Atypical pANCA Positive Abnormal Negative [facility] Comment on above: Performed By: #### L 2100.0000, L100.0100, L500.4050 ####[facility] [address] [place], [address] COMMENT Comment Abnormal . [facility] Comment on above: Result Comment: Sugg estive of Ulcerative ColitisPerformed at: [facility] [address] [id number] Director: Alison Ray MD, Phone: [phone] Performed By: #### L 2100.0000, L100.0100, L500.4050 ####[facility] [address] [place], [address] Makenna 16 units Normal 0-[address] [facility] Comment on above: Result Comment: Nega tive: <45 Equivocal: 45-50 Positive: >50 Performed By: #### L 2100.0000, L100.0100, L500.4050 ####[facility] [address] [place], [address] CBC W/Diff, Automatedon 11-0 -2023 Absolute Lymph 1.61 X10 3/uL Normal 0.83-4.[address] [facility] Comment on above: Performed By: #### L 2100.0000, L100.0100, L500.4050 ####[facility] [address] [place], [address] Absolute Neut 4.3 X10 3/uL Normal 2.0-7.[address] [facility] Comment on above: Performed By: #### L 2100.0000, L100.0100, L500.4050 ####[facility] [address] [place], [address] Basophils/100 WBC (Bld) 0.7 % Normal 0-1 [facility] Comment on above: Performed By: #### L 2100.0000, L100.0100, L500.4050 ####[facility] [address] [place], [address] Eosinophils/100 WBC (Bld) 4.5 % Normal 0-[address] [facility] Comment on above: Performed By: #### L 2100.0000, L100.0100, L500.4050 ####[facility] [address] [place], [address] Erythrocyte distribution width (RBC) [Ratio] 12.1 % Normal 11.6-14.[address] [facility] Comment on above: Performed By: #### L 2100.0000, L100.0100, L500.4050 ####[facility] [address] [place], [address] Hematocrit (Bld) [Volume fraction] 46.9 % Normal 40-[address] [facility] Comment on above: Performed By: #### L 2100.0000, L100.0100, L500.4050 ####[facility] [address] [place], [address] Hemoglobin (Bld) [Mass/Vol] 15.9 g/dL Normal 13.0-16.[address] [facility] Comment on above: Performed By: #### L 2100.0000, L100.0100, L500.4050 ####[facility] [address] [place], [address] IG% 0.300 Normal 0.0-0.[address] [facility] Comment on above: Result Comment: IG% - Immature Granulocytes (promyelocytes, myelocytes andmetamyelocytes) > 1% indicates that a LEFT SHIFT is Present. Performed By: #### L 2100.0000, L100.0100, L500.4050 ####[facility] [address] [place], [address] Lymphocytes/100 WBC (Bld) 23.6 % Normal 19-[address] [facility] Comment on above: Performed By: #### L 2100.0000, L100.0100, L500.4050 ####[facility] [address] [place], [address] MCH (RBC) [Entitic mass] 30.1 pg Normal 27.0-32.[address] [facility] Comment on above: Performed By: #### L 2100.0000, L100.0100, L500.4050 ####[facility] [address] [place], [address] MCHC (RBC) [Mass/Vol] 33.9 g/dL Normal 32-36 [facility] Comment on above: Performed By: #### L 2100.0000, L100.0100, L500.4050 ####[facility] [address] [place], [address] MCV (RBC) [Entitic vol] 88.8 fL Normal 80-94 [facility] Comment on above: Performed By: #### L 2100.0000, L100.0100, L500.4050 ####[facility] [address] [place], [address] Monocytes/100 WBC (Bld) 7.8 % Normal 0-10 [facility] Comment on above: Performed By: #### L 2100.0000, L100.0100, L500.4050 ####[facility] [address] [place], [address] Neutrophils/100 WBC (Bld) 63.1 % Normal 47-[address] [facility] Comment on above: Performed By: #### L 2100.0000, L100.0100, L500.4050 ####[facility] [address] [place], [address] Nucleated RBC (Bld) [#/Vol] 0 10*3/uL Normal 0-[address] [facility] Comment on above: Performed By: #### L 2100.0000, L100.0100, L500.4050 ####[facility] [address] [place], [address] Platelet mean volume (Bld) [Entitic vol] 9.1 fL Normal 6.2-12.[address] [facility] Comment on above: Performed By: #### L 2100.0000, L100.0100, L500.4050 ####[facility] [address] [place], [address] Platelets (Bld) [#/Vol] 271 10*3/uL Normal 150-[address] [facility] Comment on above: Performed By: #### L 2100.0000, L100.0100, L500.4050 ####[facility] [address] [place], [address] RBC (Bld) [#/Vol] 5.28 10*6/uL Normal 4.6-6.2 [facility] Comment on above: Performed By: #### L 2100.0000, L100.0100, L500.4050 ####[facility] [address] [place], [address] RDW SD 39.5 fl Normal 35.1-43.[address] [facility] Comment on above: Performed By: #### L 2100.0000, L100.0100, L500.4050 ####[facility] [address] [place], [address] WBC (Bld) [#/Vol] 6.8 10*3/uL Normal 4.4-11.0 [facility] Comment on above: Performed By: #### L 2100.0000, L100.0100, L500.4050 ####[facility] [address] [place], [address] Comprehensive Metabolic Prof [facility] 04-30-2024 Albumin [Mass/Vol] 3.6 g/dL Normal 3.2-5.0 [facility] Comment on above: Performed By: #### L 2100.0000, L100.0100, L500.4050 ####[facility] [address] [place], [address] Albumin/Globulin [Mass ratio] 0.9 {ratio} Normal 0.9-2.[address] [facility] Comment on above: Performed By: #### L 2100.0000, L100.0100, L500.4050 ####[facility] [address] [place], [address] ALK P 121 U/L High 45-[address] [facility] Comment on above: Performed By: #### L 2100.0000, L100.0100, L500.4050 ####[facility] [address] [place], [address] ALT [Catalytic activity/Vol] 125 U/L High 16-[address] [facility] Comment on above: Performed By: #### L 2100.0000, L100.0100, L500.4050 ####[facility] [address] [place], [address] AST [Catalytic activity/Vol] 50 U/L High 15-[address] [facility] Comment on above: Performed By: #### L 2100.0000, L100.0100, L500.4050 ####[facility] [address] [place], [address] Bilirubin [Mass/Vol] 0.70 mg/dL Normal 0.20-1.00 [facility] Comment on above: Result Comment: For patients on eltrombopag therapy, use of Dimension [place] TBIL is not recommended. Performed By: #### L 2100.0000, L100.0100, L500.4050 ####[facility] [address] [place], [address] BUN/CRE 12.8 RATIO Normal 10-[address] [facility] Comment on above: Performed By: #### L 2100.0000, L100.0100, L500.4050 ####[facility] [address] [place], [address] CA,Total 9.3 mg/dL Normal 8.5-10.[address] [facility] Comment on above: Performed By: #### L 2100.0000, L100.0100, L500.4050 ####[facility] [address] [place], [address] Chloride [Moles/Vol] 110 mmol/L High 98-107 [facility] Comment on above: Performed By: #### L 2100.0000, L100.0100, L500.4050 ####[facility] [address] [place], [address] CO2 [Moles/Vol] 26.0 mmol/L Normal 21.0-32.[address] [facility] Comment on above: Performed By: #### L 2100.0000, L100.0100, L500.4050 ####[facility] [address] [place], [address] Creatinine [Mass/Vol] 1.17 mg/dL Normal 0.70-1.30 [facility] Comment on above: Result Comment: The validity of the calculated GFR GFRAA in patients over70 years has not been determined. Clinical correlation isessential. Performed By: #### L 2100.0000, L100.0100, L500.4050 ####[facility] [address] [place], [address] EST GFR - AA 93 mL/min Normal >[address] [facility] Comment on above: Result Comment: Afri can Indian GFR Calc Performed By: #### L 2100.0000, L100.0100, L500.4050 ####[facility] [address] [place], [address] GAP 5 Normal 5-[address] [facility] Comment on above: Performed By: #### L 2100.0000, L100.0100, L500.4050 ####[facility] [address] [place], [address] GFR/1.73 sq M.predicted among non-blacks MDRD (S/P/Bld) [Vol rate/Area] 77 mL/min/{1.73_m2} Normal >[address] [facility] Comment on above: Result Comment: Non- GFR Calc Performed By: #### L 2100.0000, L100.0100, L500.4050 ####[facility] [address] [place], [address] Globulin (S) [Mass/Vol] 3.8 g/dL Normal 2.2-4.2 [facility] Comment on above: Performed By: #### L 2100.0000, L100.0100, L500.4050 ####[facility] [address] [place], [address] Glucose [Mass/Vol] 109 mg/dL High 74-106 [facility] Comment on above: Result Comment: Fast ing Glucose result from 100 to 125 mg/dLsuggests IMPAIRED HOMEOSTASIS per A.D.A. criteria. Performed By: #### L 2100.0000, L100.0100, L500.4050 ####[facility] [address] [place], [address] Potassium [Moles/Vol] 4.2 mmol/L Normal 3.5-5.1 [facility] Comment on above: Performed By: #### L 2100.0000, L100.0100, L500.4050 ####[facility] [address] [place], [address] Sodium [Moles/Vol] 140 mmol/L Normal 136-145 [facility] Comment on above: Performed By: #### L 2100.0000, L100.0100, L500.4050 ####[facility] [address] [place], [address] T PROT 7.4 g/dL Normal 6.4-8.[address] [facility] Comment on above: Performed By: #### L 2100.0000, L100.0100, L500.4050 ####[facility] [address] [place], [address] Urea nitrogen [Mass/Vol] 15 mg/dL Normal 7-[address] [facility] Comment on above: Performed By: #### L 2100.0000, L100.0100, L500.4050 ####[facility] [address] [place], [address] Gastroenterology Visit Repor ton 04-30-2024 Gastroenterology Visit Report Normal [facility] Protein+Creatinine Ratio,Uri neon 04-29-2024 PROT:CRE RATIO 74 mg/g CRE Normal 0-[address] [facility] Comment on above: Performed By: #### L 501.0900 ####[facility] [address] [place], [address] Protein (U) [Mass/Vol] 21.6 mg/dL High <11.9 [facility] Comment on above: Performed By: #### L 501.0900 ####[facility] [address] [place], [address] UR CREAT 291.00 mg/dL Normal NO RANGE EST. [facility] Comment on above: Performed By: #### L 501.0900 ####[facility] [address] [place], [address] Enterography Abd/Kurt 04-14 Enterography Abd/Pel Normal [facility] Internal Medicine Office Vis iton 03-24-2024 Internal Medicine Office Visit Normal [facility] Colonoscopy Reporton 024 Colonoscopy Report Normal [facility] MR/POSTOP.ANEon 03-09-2024 MR/POSTOP.ANE Normal [facility] MR/LIBEPBOR2dr 03-09-2024 MR/POSTOPAN2 Normal [facility] Surgery Specimen Level Viky 03-09-2024 Surgery Specimen Level IV Normal [facility] Comment on above: Performed By: #### P SUIV ####[facility] [address] [place], [address] Surgery Visit Reporton 03-02 Surgery Visit Report Normal [facility] CBC W/Diff, Automatedon 01-29 Absolute Lymph 1.21 X10 3/uL Normal 0.83-4.[address] [facility] Comment on above: Performed By: #### L 500.4050, L100.0100 ####[facility] [address] [place], [address] Absolute Neut 14.0 X10 3/uL High 2.0-7.[address] [facility] Comment on above: Performed By: #### L 500.4050, L100.0100 ####[facility] [address] [place], [address] Basophils/100 WBC (Bld) 0.1 % Normal 0-1 [facility] Comment on above: Performed By: #### L 500.4050, L100.0100 ####[facility] [address] [place], [address] Eosinophils/100 WBC (Bld) 0.0 % Normal 0-[address] [facility] Comment on above: Performed By: #### L 500.4050, L100.0100 ####[facility] [address] [place], [address] Erythrocyte distribution width (RBC) [Ratio] 12.1 % Normal 11.6-14.[address] [facility] Comment on above: Performed By: #### L 500.4050, L100.0100 ####[facility] [address] [place], [address] Hematocrit (Bld) [Volume fraction] 46.9 % Normal 40-[address] [facility] Comment on above: Performed By: #### L 500.4050, L100.0100 ####[facility] [address] [place], [address] Hemoglobin (Bld) [Mass/Vol] 16.0 g/dL Normal 13.0-16.[address] [facility] Comment on above: Performed By: #### L 500.4050, L100.0100 ####[facility] [address] [place], [address] IG% 0.500 Normal 0.0-0.[address] [facility] Comment on above: Result Comment: IG% - Immature Granulocytes (promyelocytes, myelocytes andmetamyelocytes) > 1% indicates that a LEFT SHIFT is Present. Performed By: #### L 500.4050, L100.0100 ####[facility] [address] [place], [address] Lymphocytes/100 WBC (Bld) 7.6 % Low 19-[address] [facility] Comment on above: Performed By: #### L 500.4050, L100.0100 ####[facility] [address] [place], [address] MCH (RBC) [Entitic mass] 30.7 pg Normal 27.0-32.[address] [facility] Comment on above: Performed By: #### L 500.4050, L100.0100 ####[facility] [address] [place], [address] MCHC (RBC) [Mass/Vol] 34.1 g/dL Normal 32-36 [facility] Comment on above: Performed By: #### L 500.4050, L100.0100 ####[facility] [address] [place], [address] MCV (RBC) [Entitic vol] 89.8 fL Normal 80-94 [facility] Comment on above: Performed By: #### L 500.4050, L100.0100 ####[facility] [address] [place], [address] Monocytes/100 WBC (Bld) 3.5 % Normal 0-10 [facility] Comment on above: Performed By: #### L 500.4050, L100.0100 ####[facility] [address] [place], [address] Neutrophils/100 WBC (Bld) 88.3 % High 47-[address] [facility] Comment on above: Performed By: #### L 500.4050, L100.0100 ####[facility] [address] [place], [address] Nucleated RBC (Bld) [#/Vol] 0 10*3/uL Normal 0-[address] [facility] Comment on above: Performed By: #### L 500.4050, L100.0100 ####[facility] [address] [place], [address] Platelet mean volume (Bld) [Entitic vol] 9.5 fL Normal 6.2-12.[address] [facility] Comment on above: Performed By: #### L 500.4050, L100.0100 ####[facility] [address] [place], [address] Platelets (Bld) [#/Vol] 276 10*3/uL Normal 150-[address] [facility] Comment on above: Performed By: #### L 500.4050, L100.0100 ####[facility] [address] [place], [address] RBC (Bld) [#/Vol] 5.22 10*6/uL Normal 4.6-6.2 [facility] Comment on above: Performed By: #### L 500.4050, L100.0100 ####[facility] [address] [place], [address] RDW SD 39.8 fl Normal 35.1-43.[address] [facility] Comment on above: Performed By: #### L 500.4050, L100.0100 ####[facility] [address] [place], [address] WBC (Bld) [#/Vol] 15.8 10*3/uL High 4.4-11.0 [facility] Comment on above: Performed By: #### L 500.4050, L100.0100 ####[facility] [address] [place], [address] Comprehensive Metabolic Prof [facility] 08-21-2024 Albumin [Mass/Vol] 3.5 g/dL Normal 3.2-5.0 [facility] Comment on above: Performed By: #### L 500.4050, L100.0100 ####[facility] [address] [place], [address] Albumin/Globulin [Mass ratio] 0.8 {ratio} Low 0.9-2.[address] [facility] Comment on above: Performed By: #### L 500.4050, L100.0100 ####[facility] [address] [place], [address] ALK P 120 U/L High 45-[address] [facility] Comment on above: Performed By: #### L 500.4050, L100.0100 ####[facility] [address] [place], [address] ALT [Catalytic activity/Vol] 130 U/L High 16-[address] [facility] Comment on above: Performed By: #### L 500.4050, L100.0100 ####[facility] [address] [place], [address] AST [Catalytic activity/Vol] 55 U/L High 15-[address] [facility] Comment on above: Performed By: #### L 500.4050, L100.0100 ####[facility] [address] [place], [address] Bilirubin [Mass/Vol] 0.60 mg/dL Normal 0.20-1.00 [facility] Comment on above: Result Comment: For patients on eltrombopag therapy, use of Dimension [place] TBIL is not recommended. Performed By: #### L 500.4050, L100.0100 ####[facility] [address] [place], [address] BUN/CRE 11.3 RATIO Normal 10-[address] [facility] Comment on above: Performed By: #### L 500.4050, L100.0100 ####[facility] [address] [place], [address] CA,Total 9.9 mg/dL Normal 8.5-10.[address] [facility] Comment on above: Performed By: #### L 500.4050, L100.0100 ####[facility] [address] [place], [address] Chloride [Moles/Vol] 106 mmol/L Normal 98-107 [facility] Comment on above: Performed By: #### L 500.4050, L100.0100 ####[facility] [address] [place], [address] CO2 [Moles/Vol] 26.0 mmol/L Normal 21.0-32.[address] [facility] Comment on above: Performed By: #### L 500.4050, L100.0100 ####[facility] [address] [place], [address] Creatinine [Mass/Vol] 1.06 mg/dL Normal 0.70-1.30 [facility] Comment on above: Result Comment: The validity of the calculated GFR GFRAA in patients over70 years has not been determined. Clinical correlation isessential. Performed By: #### L 500.4050, L100.0100 ####[facility] [address] [place], [address] ECRCL 130.25 ml/min Normal [facility] Comment on above: Performed By: #### L 500.4050, L100.0100 ####[facility] [address] [place], [address] EST GFR - AA 105 mL/min Normal >[address] [facility] Comment on above: Result Comment: Afri can Indian GFR Calc Performed By: #### L 500.4050, L100.0100 ####[facility] [address] [place], [address] GAP 5 Normal 5-[address] [facility] Comment on above: Performed By: #### L 500.4050, L100.0100 ####[facility] [address] [place], [address] GFR/1.73 sq M.predicted among non-blacks MDRD (S/P/Bld) [Vol rate/Area] 87 mL/min/{1.73_m2} Normal >[address] [facility] Comment on above: Result Comment: Non- GFR Calc Performed By: #### L 500.4050, L100.0100 ####[facility] [address] [place], [address] Globulin (S) [Mass/Vol] 4.3 g/dL High 2.2-4.2 [facility] Comment on above: Performed By: #### L 500.4050, L100.0100 ####[facility] [address] [place], [address] Glucose [Mass/Vol] 135 mg/dL High 74-106 [facility] Comment on above: Result Comment: Fast ing Glucose result greater than or equal to 126 mg/dLsuggests DIABETES MELLITUS per A.D.A. criteria. Performed By: #### L 500.4050, L100.0100 ####[facility] [address] [place], [address] Potassium [Moles/Vol] 4.1 mmol/L Normal 3.5-5.1 [facility] Comment on above: Performed By: #### L 500.4050, L100.0100 ####[facility] [address] [place], [address] Sodium [Moles/Vol] 137 mmol/L Normal 136-145 [facility] Comment on above: Performed By: #### L 500.4050, L100.0100 ####[facility] [address] [place], [address] T PROT 7.8 g/dL Normal 6.4-8.[address] [facility] Comment on above: Performed By: #### L 500.4050, L100.0100 ####[facility] [address] [place], [address] Urea nitrogen [Mass/Vol] 12 mg/dL Normal 7-[address] [facility] Comment on above: Performed By: #### L 500.4050, L100.0100 ####[facility] [address] [place], [address] Discharge Instructionon 01-29 Discharge Instruction Normal [facility] 12 Lead EKGon 02-17-2024 12 Lead EKG Normal [facility] Abdomen/Pelvis W IV Cont ONL Yon 02-17-2024 Abdomen/Pelvis W IV Cont ONLY Normal [facility] CBC W/Diff, Automatedon 01-29 Absolute Lymph 1.92 X10 3/uL Normal 0.83-4.[address] [facility] Comment on above: Performed By: #### L 100.0100, L500.4050, L501.2450 ####[facility] [address] [place], [address] Absolute Neut 6.6 X10 3/uL Normal 2.0-7.[address] [facility] Comment on above: Performed By: #### L 100.0100, L500.4050, L501.2450 ####[facility] [address] [place], [address] Basophils/100 WBC (Bld) 0.5 % Normal 0-1 [facility] Comment on above: Performed By: #### L 100.0100, L500.4050, L501.2450 ####[facility] [address] [place], [address] Eosinophils/100 WBC (Bld) 3.1 % Normal 0-[address] [facility] Comment on above: Performed By: #### L 100.0100, L500.4050, L501.2450 ####[facility] [address] [place], [address] Erythrocyte distribution width (RBC) [Ratio] 12.1 % Normal 11.6-14.[address] [facility] Comment on above: Performed By: #### L 100.0100, L500.4050, L501.2450 ####[facility] [address] [place], [address] Hematocrit (Bld) [Volume fraction] 46.8 % Normal 40-[address] [facility] Comment on above: Performed By: #### L 100.0100, L500.4050, L501.2450 ####[facility] [address] [place], [address] Hemoglobin (Bld) [Mass/Vol] 16.5 g/dL Normal 13.0-16.[address] [facility] Comment on above: Performed By: #### L 100.0100, L500.4050, L501.2450 ####[facility] [address] [place], [address] IG% 0.300 Normal 0.0-0.[address] [facility] Comment on above: Result Comment: IG% - Immature Granulocytes (promyelocytes, myelocytes andmetamyelocytes) > 1% indicates that a LEFT SHIFT is Present. Performed By: #### L 100.0100, L500.4050, L501.2450 ####[facility] [address] [place], [address] Lymphocytes/100 WBC (Bld) 20.2 % Normal 19-[address] [facility] Comment on above: Performed By: #### L 100.0100, L500.4050, L501.2450 ####[facility] [address] [place], [address] MCH (RBC) [Entitic mass] 31.3 pg Normal 27.0-32.[address] [facility] Comment on above: Performed By: #### L 100.0100, L500.4050, L501.2450 ####[facility] [address] [place], [address] MCHC (RBC) [Mass/Vol] 35.3 g/dL Normal 32-36 [facility] Comment on above: Performed By: #### L 100.0100, L500.4050, L501.2450 ####[facility] [address] [place], [address] MCV (RBC) [Entitic vol] 88.8 fL Normal 80-94 [facility] Comment on above: Performed By: #### L 100.0100, L500.4050, L501.2450 ####[facility] [address] [place], [address] Monocytes/100 WBC (Bld) 6.9 % Normal 0-10 [facility] Comment on above: Performed By: #### L 100.0100, L500.4050, L501.2450 ####[facility] [address] [place], [address] Neutrophils/100 WBC (Bld) 69.0 % Normal 47-[address] [facility] Comment on above: Performed By: #### L 100.0100, L500.4050, L501.2450 ####[facility] [address] [place], [address] Nucleated RBC (Bld) [#/Vol] 0 10*3/uL Normal 0-[address] [facility] Comment on above: Performed By: #### L 100.0100, L500.4050, L501.2450 ####[facility] [address] [place], [address] Platelet mean volume (Bld) [Entitic vol] 9.5 fL Normal 6.2-12.[address] [facility] Comment on above: Performed By: #### L 100.0100, L500.4050, L501.2450 ####[facility] [address] [place], [address] Platelets (Bld) [#/Vol] 273 10*3/uL Normal 150-[address] [facility] Comment on above: Performed By: #### L 100.0100, L500.4050, L501.2450 ####[facility] [address] [place], [address] RBC (Bld) [#/Vol] 5.27 10*6/uL Normal 4.6-6.2 [facility] Comment on above: Performed By: #### L 100.0100, L500.4050, L501.2450 ####[facility] [id number] [place], [address] RDW SD 39.5 fl Normal 35.1-43.[address] [facility] Comment on above: Performed By: #### L 100.0100, L500.4050, L501.2450 ####[facility] [id number] [place], [place], [address] WBC (Bld) [#/Vol] 9.5 10*3/uL Normal 4.4-11.0 [facility] Comment on above: Performed By: #### L 100.0100, L500.4050, L501.2450 ####[facility] [address] [place], [address] Cholangiogram/ O R,Initialon 02-17-2024 Cholangiogram/ O R,Initial Normal [facility] Comprehensive Metabolic Prof ilon 02-17-2024 Albumin [Mass/Vol] 3.7 g/dL Normal 3.2-5.0 [facility] Comment on above: Performed By: #### L 100.0100, L500.4050, L501.2450 ####[facility] [address] [place], [address] Albumin/Globulin [Mass ratio] 0.9 {ratio} Normal 0.9-2.[address] [facility] Comment on above: Performed By: #### L 100.0100, L500.4050, L501.2450 ####[facility] [address] [place], [address] ALK P 128 U/L High 45-[address] [facility] Comment on above: Performed By: #### L 100.0100, L500.4050, L501.2450 ####[facility] [address] [place], [address] ALT [Catalytic activity/Vol] 129 U/L High 16-[address] [facility] Comment on above: Performed By: #### L 100.0100, L500.4050, L501.2450 ####[facility] [address] [place], [address] AST [Catalytic activity/Vol] 49 U/L High 15-[address] [facility] Comment on above: Performed By: #### L 100.0100, L500.4050, L501.2450 ####[facility] [address] [place], [address] Bilirubin [Mass/Vol] 0.50 mg/dL Normal 0.20-1.00 [facility] Comment on above: Result Comment: For patients on eltrombopag therapy, use of Dimension [place] TBIL is not recommended. Performed By: #### L 100.0100, L500.4050, L501.2450 ####[facility] [address] [place], [address] BUN/CRE 9.8 RATIO Low 10-[address] [facility] Comment on above: Performed By: #### L 100.0100, L500.4050, L501.2450 ####[facility] [address] [place], [address] CA,Total 9.6 mg/dL Normal 8.5-10.[address] [facility] Comment on above: Performed By: #### L 100.0100, L500.4050, L501.2450 ####[facility] [address] [place], [address] Chloride [Moles/Vol] 107 mmol/L Normal 98-107 [facility] Comment on above: Performed By: #### L 100.0100, L500.4050, L501.2450 ####[facility] [address] [place], [address] CO2 [Moles/Vol] 26.0 mmol/L Normal 21.0-32.[address] [facility] Comment on above: Performed By: #### L 100.0100, L500.4050, L501.2450 ####[facility] [address] [place], [address] Creatinine [Mass/Vol] 1.23 mg/dL Normal 0.70-1.30 [facility] Comment on above: Result Comment: The validity of the calculated GFR GFRAA in patients over70 years has not been determined. Clinical correlation isessential. Performed By: #### L 100.0100, L500.4050, L501.2450 ####[facility] [address] [place], [address] ECRCL 112.45 ml/min Normal [facility] Comment on above: Performed By: #### L 100.0100, L500.4050, L501.2450 ####[facility] [address] [place], [address] EST GFR - AA 88 mL/min Normal >[address] [facility] Comment on above: Result Comment: Afri can Indian GFR Calc Performed By: #### L 100.0100, L500.4050, L501.2450 ####[facility] [address] [place], [address] GAP 6 Normal 5-[address] [facility] Comment on above: Performed By: #### L 100.0100, L500.4050, L501.2450 ####[facility] [address] [place], [address] GFR/1.73 sq M.predicted among non-blacks MDRD (S/P/Bld) [Vol rate/Area] 73 mL/min/{1.73_m2} Normal >[address] [facility] Comment on above: Result Comment: Non- GFR Calc Performed By: #### L 100.0100, L500.4050, L501.2450 ####[facility] [address] [place], [address] Globulin (S) [Mass/Vol] 4.2 g/dL Normal 2.2-4.2 [facility] Comment on above: Performed By: #### L 100.0100, L500.4050, L501.2450 ####[facility] [address] [place], [address] Glucose [Mass/Vol] 110 mg/dL High 74-106 [facility] Comment on above: Result Comment: Fast ing Glucose result from 100 to 125 mg/dLsuggests IMPAIRED HOMEOSTASIS per A.D.A. criteria. Performed By: #### L 100.0100, L500.4050, L501.2450 ####[facility] [address] [place], [address] Potassium [Moles/Vol] 4.1 mmol/L Normal 3.5-5.1 [facility] Comment on above: Performed By: #### L 100.0100, L500.4050, L501.2450 ####[facility] [address] [place], [address] Sodium [Moles/Vol] 139 mmol/L Normal 136-145 [facility] Comment on above: Performed By: #### L 100.0100, L500.4050, L501.2450 ####[facility] [address] [place], [address] T PROT 7.9 g/dL Normal 6.4-8.[address] [facility] Comment on above: Performed By: #### L 100.0100, L500.4050, L501.2450 ####[facility] [address] [place], [address] Urea nitrogen [Mass/Vol] 12 mg/dL Normal 7-[address] [facility] Comment on above: Performed By: #### L 100.0100, L500.4050, L501.2450 ####[facility] [address] [place], [address] Emergency Department Summary on 02-17-2024 Emergency Department Summary Normal [facility] Gallbladderon 02-17-2024 Gallbladder Normal [facility] Lipaseon 02-17-2024 Lipase [Catalytic activity/Vol] 57 U/L Normal 13-[address] [facility] Comment on above: Result Comment: Vikram martin note:LIPASE revised reference range effective 22.New Lipase methodology. Expected to produce lower valuesthan the previous assay method.NEW Reference Range: 13 - 75 U/L Performed By: #### L 100.0100, L500.4050, L501.2450 ####[facility] [address] [place], [address] MR/POSTOP.ANEon 02-17-2024 MR/POSTOP.ANE Normal [facility] MR/[id number] 02-17-2024 MR/POSTOPAN2 Normal [facility] Operative Reporton Operative Report Normal [facility] Surgery Specimen Level IIIon 02-17-2024 Surgery Specimen Level III Normal [facility] Comment on above: Performed By: #### P SUIII ####[facility] [address] [place], [address] Urinalysis, Completeon 02-16 WBC 0-5 SEEN Normal 0-[address] [facility] Comment on above: Order Comment: COLLE CTOR TO SPECIFY Performed By: #### L 400.0001 ####[facility] [address] [place], [address] BACTERIA 0 SEEN Normal None Seen [facility] Comment on above: Order Comment: COLLE CTOR TO SPECIFY Performed By: #### L 400.0001 ####[facility] [address] [place], [address] EPI,SQUAMOUS 0 SEEN Normal 0-[address] [facility] Comment on above: Order Comment: COLLE CTOR TO SPECIFY Performed By: #### L 400.0001 ####[facility] [address] [place], [address] Mucus Ql (Urine sed) 0 SEEN Normal [facility] Comment on above: Order Comment: NICHELLE CTOR TO SPECIFY Performed By: #### L 400.0001 ####[facility] [address] [place], [address] RBC 0 SEEN Normal 0-[address] [facility] Comment on above: Order Comment: COLLE CTOR TO SPECIFY Performed By: #### L 400.0001 ####[facility] [address] [place], [address] CBC W/Diff, Automatedon 01-28 Absolute Lymph 2.84 X10 3/uL Normal 0.83-4.[address] [facility] Comment on above: Performed By: #### L 500.4050, L501.2450, L100.0100 ####[facility] [address] [place], [address] Absolute Neut 6.0 X10 3/uL Normal 2.0-7.[address] [facility] Comment on above: Performed By: #### L 500.4050, L501.2450, L100.0100 ####[facility] [address] [place], [address] Basophils/100 WBC (Bld) 0.6 % Normal 0-1 [facility] Comment on above: Performed By: #### L 500.4050, L501.2450, L100.0100 ####[facility] [address] [place], [address] Eosinophils/100 WBC (Bld) 4.2 % Normal 0-[address] [facility] Comment on above: Performed By: #### L 500.4050, L501.2450, L100.0100 ####[facility] [address] [place], [address] Erythrocyte distribution width (RBC) [Ratio] 11.9 % Normal 11.6-14.[address] [facility] Comment on above: Performed By: #### L 500.4050, L501.2450, L100.0100 ####[facility] [address] [place], [address] Hematocrit (Bld) [Volume fraction] 49.8 % Normal 40-[address] [facility] Comment on above: Performed By: #### L 500.4050, L501.2450, L100.0100 ####[facility] [address] [place], [address] Hemoglobin (Bld) [Mass/Vol] 17.2 g/dL High 13.0-16.[address] [facility] Comment on above: Performed By: #### L 500.4050, L501.2450, L100.0100 ####[facility] [address] [place], [address] IG% 0.300 Normal 0.0-0.[address] [facility] Comment on above: Result Comment: IG% - Immature Granulocytes (promyelocytes, myelocytes andmetamyelocytes) > 1% indicates that a LEFT SHIFT is Present. Performed By: #### L 500.4050, L501.2450, L100.0100 ####[facility] [address] [place], [address] Lymphocytes/100 WBC (Bld) 28.1 % Normal 19-[address] [facility] Comment on above: Performed By: #### L 500.4050, L501.2450, L100.0100 ####[facility] [address] [place], [address] MCH (RBC) [Entitic mass] 30.6 pg Normal 27.0-32.[address] [facility] Comment on above: Performed By: #### L 500.4050, L501.2450, L100.0100 ####[facility] [address] [place], [address] MCHC (RBC) [Mass/Vol] 34.5 g/dL Normal 32-36 [facility] Comment on above: Performed By: #### L 500.4050, L501.2450, L100.0100 ####[facility] [address] [place], [address] MCV (RBC) [Entitic vol] 88.5 fL Normal 80-94 [facility] Comment on above: Performed By: #### L 500.4050, L501.2450, L100.0100 ####[facility] [address] [place], [address] Monocytes/100 WBC (Bld) 7.0 % Normal 0-10 [facility] Comment on above: Performed By: #### L 500.4050, L501.2450, L100.0100 ####[facility] [address] [place], [address] Neutrophils/100 WBC (Bld) 59.8 % Normal 47-[address] [facility] Comment on above: Performed By: #### L 500.4050, L501.2450, L100.0100 ####[facility] [address] [place], [address] Nucleated RBC (Bld) [#/Vol] 0 10*3/uL Normal 0-[address] [facility] Comment on above: Performed By: #### L 500.4050, L501.2450, L100.0100 ####[facility] [address] [place], [address] Platelet mean volume (Bld) [Entitic vol] 9.3 fL Normal 6.2-12.[address] [facility] Comment on above: Performed By: #### L 500.4050, L501.2450, L100.0100 ####[facility] [address] [place], [address] Platelets (Bld) [#/Vol] 284 10*3/uL Normal 150-[address] [facility] Comment on above: Performed By: #### L 500.4050, L501.2450, L100.0100 ####[facility] [address] [place], [address] RBC (Bld) [#/Vol] 5.63 10*6/uL Normal 4.6-6.2 [facility] Comment on above: Performed By: #### L 500.4050, L501.2450, L100.0100 ####[facility] [address] [place], [address] RDW SD 39.0 fl Normal 35.1-43.[address] [facility] Comment on above: Performed By: #### L 500.4050, L501.2450, L100.0100 ####[facility] [address] [place], [address] WBC (Bld) [#/Vol] 10.1 10*3/uL Normal 4.4-11.0 [facility] Comment on above: Performed By: #### L 500.4050, L501.2450, L100.0100 ####[facility] [address] [place], [address] Comprehensive Metabolic Prof jan 02-15-2024 Albumin [Mass/Vol] 3.9 g/dL Normal 3.2-5.0 [facility] Comment on above: Performed By: #### L 500.4050, L501.2450, L100.0100 ####[facility] [address] [place], [address] Albumin/Globulin [Mass ratio] 0.9 {ratio} Normal 0.9-2.[address] [facility] Comment on above: Performed By: #### L 500.4050, L501.2450, L100.0100 ####[facility] [address] [place], [address] ALK P 146 U/L High 45-[address] [facility] Comment on above: Performed By: #### L 500.4050, L501.2450, L100.0100 ####[facility] [address] [place], [address] ALT [Catalytic activity/Vol] 147 U/L High 16-[address] [facility] Comment on above: Performed By: #### L 500.4050, L501.2450, L100.0100 ####[facility] [address] [place], [address] AST [Catalytic activity/Vol] 58 U/L High 15-[address] [facility] Comment on above: Performed By: #### L 500.4050, L501.2450, L100.0100 ####[facility] [address] [place], [address] Bilirubin [Mass/Vol] 0.30 mg/dL Normal 0.20-1.00 [facility] Comment on above: Result Comment: For patients on eltrombopag therapy, use of Dimension [place] TBIL is not recommended. Performed By: #### L 500.4050, L501.2450, L100.0100 ####[facility] [address] [place], [address] BUN/CRE 9.1 RATIO Low 10-[address] [facility] Comment on above: Performed By: #### L 500.4050, L501.2450, L100.0100 ####[facility] [address] [place], [address] CA,Total 9.8 mg/dL Normal 8.5-10.[address] [facility] Comment on above: Performed By: #### L 500.4050, L501.2450, L100.0100 ####[facility] [address] [place], [address] Chloride [Moles/Vol] 109 mmol/L High 98-107 [facility] Comment on above: Performed By: #### L 500.4050, L501.2450, L100.0100 ####[facility] [address] [place], [address] CO2 [Moles/Vol] 28.0 mmol/L Normal 21.0-32.[address] [facility] Comment on above: Performed By: #### L 500.4050, L501.2450, L100.0100 ####[facility] [address] [place], [address] Creatinine [Mass/Vol] 1.10 mg/dL Normal 0.70-1.30 [facility] Comment on above: Result Comment: The validity of the calculated GFR GFRAA in patients over70 years has not been determined. Clinical correlation isessential. Performed By: #### L 500.4050, L501.2450, L100.0100 ####[facility] [address] [place], [address] ECRCL 125.43 ml/min Normal [facility] Comment on above: Performed By: #### L 500.4050, L501.2450, L100.0100 ####[facility] [address] [place], [address] EST GFR - AA 100 mL/min Normal >[address] [facility] Comment on above: Result Comment: Afri can Indian GFR Calc Performed By: #### L 500.4050, L501.2450, L100.0100 ####[facility] [address] [place], [address] GAP 5 Normal 5-[address] [facility] Comment on above: Performed By: #### L 500.4050, L501.2450, L100.0100 ####[facility] [address] [place], [address] GFR/1.73 sq M.predicted among non-blacks MDRD (S/P/Bld) [Vol rate/Area] 83 mL/min/{1.73_m2} Normal >[address] [facility] Comment on above: Result Comment: Non- GFR Calc Performed By: #### L 500.4050, L501.2450, L100.0100 ####[facility] [address] [place], [address] Globulin (S) [Mass/Vol] 4.2 g/dL Normal 2.2-4.2 [facility] Comment on above: Performed By: #### L 500.4050, L501.2450, L100.0100 ####[facility] [address] [place], [address] Glucose [Mass/Vol] 99 mg/dL Normal 74-106 [facility] Comment on above: Performed By: #### L 500.4050, L501.2450, L100.0100 ####[facility] [address] [place], [address] Potassium [Moles/Vol] 3.7 mmol/L Normal 3.5-5.1 [facility] Comment on above: Performed By: #### L 500.4050, L501.2450, L100.0100 ####[facility] [address] [place], [address] Sodium [Moles/Vol] 142 mmol/L Normal 136-145 [facility] Comment on above: Performed By: #### L 500.4050, L501.2450, L100.0100 ####[facility] [address] [place], [address] T PROT 8.1 g/dL Normal 6.4-8.[address] [facility] Comment on above: Performed By: #### L 500.4050, L501.2450, L100.0100 ####[facility] [address] [place], [address] Urea nitrogen [Mass/Vol] 10 mg/dL Normal 7-[address] [facility] Comment on above: Performed By: #### L 500.4050, L501.2450, L100.0100 ####[facility] [address] [place], [address] Emergency Department Summary on 02-15-2024 Emergency Department Summary Normal [facility] Lipaseon 02-15-2024 Lipase [Catalytic activity/Vol] 58 U/L Normal 13-[address] [facility] Comment on above: Result Comment: Vikram martin note:LIPASE revised reference range effective 22.New Lipase methodology. Expected to produce lower valuesthan the previous assay method.NEW Reference Range: 13 - 75 U/L Performed By: #### L 500.4050, L501.2450, L100.0100 ####[facility] [address] [place], [address] Urinalysis, Completeon 02-14 EPI,SQUAMOUS 0-5 SEEN Normal 0-[address] [facility] Comment on above: Order Comment: CLEAN CATCH Performed By: #### L 400.0001 ####[facility] [address] [place], [address] WBC 0-5 SEEN Normal 0-[address] [facility] Comment on above: Order Comment: CLEAN CATCH Performed By: #### L 400.0001 ####[facility] [address] [place], [address] BACTERIA 0 SEEN Normal None Seen [facility] Comment on above: Order Comment: CLEAN CATCH Performed By: #### L 400.0001 ####[facility] [address] [place], [address] Mucus Ql (Urine sed) 0 SEEN Normal [facility] Comment on above: Order Comment: CLEAN CATCH Performed By: #### L 400.0001 ####[facility] [address] [place], [address] RBC 0 SEEN Normal 0-[address] [facility] Comment on above: Order Comment: CLEAN CATCH Performed By: #### L 400.0001 ####[facility] [address] [place], [address] Elastography Parenchyma/Orga non 02-12-2024 Elastography Parenchyma/Organ Normal [facility] L7000.0750on 02-10-2024 P ELASTASE,FECA > 800 Normal >[address] [facility] Comment on above: Result Comment: Resu lt Units: ug Elast./g Severe Pancreatic Insufficiency: <100 Moderate Pancreatic Insufficiency: 100 - 200 Normal: >200Performed at: [address] [id number] Director: Alison Ray MD, Phone: [phone] Performed By: #### M 100.0605, L7000.0750, L7000.0700 ####[facility] [address] [place], [address] Calprotectin, Stoolon 08-10- [address] 191 ug/g Abnormal 0-[address] [facility] Comment on above: Result Comment: Conc entration Interpretation Follow-Up< 5 - 50 ug/g Normal None>50 -120 ug/g Borderline Re-evaluate in 4-6 weeks >120 ug/g Abnormal Repeat as clinically indicatedPerformed at: [facility] [id number] Director: Alison Ray MD, Phone: [phone] Performed By: #### M 100.0605, L7000.0750, L7000.0700 ####[facility] [address] [place], [address] AFP, Tumor Markeron 02-04-20 24 AFP TUMOR KIT 2.1 ng/mL Normal 0.0-6.[address] [facility] Comment on above: Order Comment: Test( s) [id number], Serum or Plasmawas developed and its performance characteristicsdetermined by [employer]. It has not been cleared or approvedby the Food and Drug Administration.N Result Comment: [facility] [employer] Electrochemiluminescence Immunoassay(ECLIA)Values obtained with different assay methods or kits cannotbe used interchangeably. Results cannot be interpreted asabsolute evidence of the presence or absence of malignantdisease.This test is not interpretable in females. Performed By: #### L 503.6550, L503.6075, L800.1280, L500.4050, L3000.0375, L3100.1850, L509.6000, L100.0100, L300.3900, L3400.0700, L3300.0100, L501.6710, L101.9900, L3410.2400, L501.9520, L3300.0700, L3300.1200 ####[facility] [address] [place], [address] ANCAon 02-04-2024 Atypical pANCA 1:40 Abnormal Neg:<1:[address] [facility] Comment on above: Order Comment: Test( s) [id number]-[place], Serum or Plasmawas developed and its performance characteristicsdetermined by [employer]. It has not been cleared or approvedby the Food and Drug Administration.N Result Comment: The atypical pANCA pattern has been observed in asignificant percentage of patients with ulcerative colitis,primary sclerosing cholangitis and autoimmune hepatitis. Performed By: #### L 503.6550, L503.6075, L800.1280, L500.4050, L3000.0375, L3100.1850, L509.6000, L100.0100, L300.3900, L3400.0700, L3300.0100, L501.6710, L101.9900, L3410.2400, L501.9520, L3300.0700, L3300.1200 ####[facility] [address] [facility] [place], [place], [address] Cytoplasmic Ab <1:20 Normal Neg:<1:[address] [facility] Comment on above: Order Comment: Test( s) [id number]-Apwwfd, Serum or Plasmawas developed and its performance characteristicsdetermined by [employer]. It has not been cleared or approvedby the Food and Drug Administration.N Performed By: #### L 503.6550, L503.6075, L800.1280, L500.4050, L3000.0375, L3100.1850, L509.6000, L100.0100, L300.3900, L3400.0700, L3300.0100, L501.6710, L101.9900, L3410.2400, L501.9520, L3300.0700, L3300.1200 ####[facility] [address] [facility] [place], [address] Perinuclear Ab. <1:20 Normal Neg:<1:[address] [facility] Comment on above: Order Comment: Test( s) [id number]-[place], Serum or Plasmawas developed and its performance characteristicsdetermined by [employer]. It has not been cleared or approvedby the Food and Drug Administration.N Result Comment: The presence of positive fluorescence exhibiting P-ANCA orC-ANCA patterns alone is not specific for the diagnosis ofWegener's Granulomatosis (WG) or microscopic polyangiitis.Decisions about treatment should not be based solely onANCA IFA results. The [employer] ANCA Group Consensusrecommends follow up testing of positive sera with both OH-3 and MPO-ANCA enzyme immunoassays. As many as 5% serumsamples are positive only by EIA. Ref. AM J Clin Yzltsf6300;111:507-513. Performed By: #### L 503.6550, L503.6075, L800.1280, L500.4050, L3000.0375, L3100.1850, L509.6000, L100.0100, L300.3900, L3400.0700, L3300.0100, L501.6710, L101.9900, L3410.2400, L501.9520, L3300.0700, L3300.1200 ####[facility] [address], [address] Celiac Disease Profileon ENDOMYSIAL IGA Negative Normal Negative [facility] Comment on above: Order Comment: Test( s) 597960-Bponqh, Serum or Plasmawas developed and its performance characteristicsdetermined by [employer]. It has not been cleared or approvedby the Food and Drug Administration.N Performed By: #### L 503.6550, L503.6075, L800.1280, L500.4050, L3000.0375, L3100.1850, L509.6000, L100.0100, L300.3900, L3400.0700, L3300.0100, L501.6710, L101.9900, L3410.2400, L501.9520, L3300.0700, L3300.1200 ####[facility] [address] [place], [address] IMMUNOGLOB A QN 512 mg/dL High 90-[address] [facility] Comment on above: Order Comment: Test( s) 304474-Zrzpaa, Serum or Plasmawas developed and its performance characteristicsdetermined by [employer]. It has not been cleared or approvedby the Food and Drug Administration.N Performed By: #### L 503.6550, L503.6075, L800.1280, L500.4050, L3000.0375, L3100.1850, L509.6000, L100.0100, L300.3900, L3400.0700, L3300.0100, L501.6710, L101.9900, L3410.2400, L501.9520, L3300.0700, L3300.1200 ####[facility] Ntsotcdbsz4750 [facility]. [place], [place], [id number] tTG IGA <2 Normal 0-[address] [facility] Comment on above: Order Comment: Test( s) 872204-Liukir, Serum or Plasmawas developed and its performance characteristicsdetermined by [employer]. It has not been cleared or approvedby the Food and Drug Administration.N Result Comment: Nega tive 0 - 3 Weak Positive 4 - 10 Positive >10 Tissue Transglutaminase (tTG) has been identified as the endomysial antigen. Studies have demonstr- ated that endomysial IgA antibodies have over 99% specificity for gluten sensitive enteropathy. Performed By: #### L 503.6550, L503.6075, L800.1280, L500.4050, L3000.0375, L3100.1850, L509.6000, L100.0100, L300.3900, L3400.0700, L3300.0100, L501.6710, L101.9900, L3410.2400, L501.9520, L3300.0700, L3300.1200 ####[facility] [address] [facility]. [place], [place], [phone] Ceruloplasminon 02-04-2024 CERULOPLASMIN 28.2 mg/dL Normal 16.0-31.[address] [facility] Comment on above: Order Comment: Test( s) 551514-Xszjkl, Serum or Plasmawas developed and its performance characteristicsdetermined by [employer]. It has not been cleared or approvedby the Food and Drug Administration.N Performed By: #### L 503.6550, L503.6075, L800.1280, L500.4050, L3000.0375, L3100.1850, L509.6000, L100.0100, L300.3900, L3400.0700, L3300.0100, L501.6710, L101.9900, L3410.2400, L501.9520, L3300.0700, L3300.1200 ####[facility] [address] [place], [place], [phone] Copper, Serum or Plasmaon COPPER, SERUM 102 ug/dL Normal 69-[address] [facility] Comment on above: Order Comment: Test( s) 593299-Htuvjd, Serum or Plasmawas developed and its performance characteristicsdetermined by [employer]. It has not been cleared or approvedby the Food and Drug Administration.N Result Comment: Dete ction Limit = 5 Performed By: #### L 503.6550, L503.6075, L800.1280, L500.4050, L3000.0375, L3100.1850, L509.6000, L100.0100, L300.3900, L3400.0700, L3300.0100, L501.6710, L101.9900, L3410.2400, L501.9520, L3300.0700, L3300.1200 ####[facility] [address]wrq[address] [facility] [address]. [place], [place], [phone] Haptoglobinon 02-04-2024 HAPTOGLOBIN 151 mg/dL Normal 17-[address] [facility] Comment on above: Order Comment: Test( s) 570355-Zolgyn, Serum or Plasmawas developed and its performance characteristicsdetermined by [employer]. It has not been cleared or approvedby the Food and Drug Administration.N Result Comment: Perf ormed at: [facility] [employer] [id number] Director: Popeye Joseph PhD, Phone: [phone] at: [facility] [employer] [id number] Director: Alison Ray MD, Phone: [phone] Performed By: #### L 503.6550, L503.6075, L800.1280, L500.4050, L3000.0375, L3100.1850, L509.6000, L100.0100, L300.3900, L3400.0700, L3300.0100, L501.6710, L101.9900, L3410.2400, L501.9520, L3300.0700, L3300.1200 ####[facility] X[address]ruvzwmj[address]17 [facility] [place], [address] Hepatitis Panel Acuteon -0 COMMENT Comment Normal . [facility] Comment on above: Order Comment: Test( s) 540219-Goduyv, Serum or Plasmawas developed and its performance characteristicsdetermined by [employer]. It has not been cleared or approvedby the Food and Drug Administration.N Result Comment: Not infected with HCV unless early or acute infection issuspected (which may be delayed in an immunocompromisedindividual), or other evidence exists to indicate HCVinfection. Performed By: #### L 503.6550, L503.6075, L800.1280, L500.4050, L3000.0375, L3100.1850, L509.6000, L100.0100, L300.3900, L3400.0700, L3300.0100, L501.6710, L101.9900, L3410.2400, L501.9520, L3300.0700, L3300.1200 ####[facility] Jlwkvvkgvt6557 [facility] [place], [address] HEP B CORE,IgM Negative Normal Negative [facility] Comment on above: Order Comment: Test( s) 219513-Ctfxfu, Serum or Plasmawas developed and its performance characteristicsdetermined by [employer]. It has not been cleared or approvedby the Food and Drug Administration.N Performed By: #### L 503.6550, L503.6075, L800.1280, L500.4050, L3000.0375, L3100.1850, L509.6000, L100.0100, L300.3900, L3400.0700, L3300.0100, L501.6710, L101.9900, L3410.2400, L501.9520, L3300.0700, L3300.1200 ####[facility] [address] [place], [place], [phone] HEP B SURF AG Negative Normal Negative [facility] Comment on above: Order Comment: Test( s) 996732-Etbdpz, Serum or Plasmawas developed and its performance characteristicsdetermined by [employer]. It has not been cleared or approvedby the Food and Drug Administration.N Performed By: #### L 503.6550, L503.6075, L800.1280, L500.4050, L3000.0375, L3100.1850, L509.6000, L100.0100, L300.3900, L3400.0700, L3300.0100, L501.6710, L101.9900, L3410.2400, L501.9520, L3300.0700, L3300.1200 ####[facility] [address] [place], [address] HEP C VIRUS AB Non-Reactive Normal Non Reactive [facility] Comment on above: Order Comment: Test( s) 501807-Xxvtnb, Serum or Plasmawas developed and its performance characteristicsdetermined by [employer]. It has not been cleared or approvedby the Food and Drug Administration.N Performed By: #### L 503.6550, L503.6075, L800.1280, L500.4050, L3000.0375, L3100.1850, L509.6000, L100.0100, L300.3900, L3400.0700, L3300.0100, L501.6710, L101.9900, L3410.2400, L501.9520, L3300.0700, L3300.1200 ####[facility] [address] [place], [place], [phone] HEPATITIS A-IgM Negative Normal Negative [facility] Comment on above: Order Comment: Test( s) 722346-Rssakj, Serum or Plasmawas developed and its performance characteristicsdetermined by [employer]. It has not been cleared or approvedby the Food and Drug Administration.N Performed By: #### L 503.6550, L503.6075, L800.1280, L500.4050, L3000.0375, L3100.1850, L509.6000, L100.0100, L300.3900, L3400.0700, L3300.0100, L501.6710, L101.9900, L3410.2400, L501.9520, L3300.0700, L3300.1200 ####[facility] [address] [place], [place], [address] EGD Reporton 02-03-2024 EGD Report Normal [facility] H Pylori (initial)on 024 H Pylori (initial) Normal [facility] Comment on above: Performed By: #### P H.PYLORI ####[facility] [address] [place], [place], [address] Hemoglobin A1con 02-03-2024 HbA1c (Bld) [Mass fraction] 5.6 % Normal 3.8-5.[address] [facility] Comment on above: Result Comment: Norm al < 5.7 % Prediabetic 5.7 - 6.4 % Diabetic >or= 6.5 % Please note range changes. Performed By: #### L [id number] ####[facility] [address] [place], [address] MR/POSTOP.ANEon 02-03-2024 MR/POSTOP.ANE Normal [facility] MR/KFHZCGMS6mr 02-03-2024 MR/POSTOPAN2 Normal [facility] Special Stain Group Ion - Special Stain Group I Normal [facility] Comment on above: Performed By: #### P SSI ####[facility] [address] [place], [place], [address] Stool Lactoferrin/WBCon 08-0 WBCST Normal Reference Ran ge = Negative Fecal WBC Lactoferrin A Positive: Fecal WBC Lactoferrin present A Normal [facility] Comment on above: Performed By: #### M 100.0605, L7000.0750, L7000.0700 ####[facility] [address] [place], [address] Anti-Mitochondrial ABon 08-0 ANTIMITOCHON AB <20.0 Normal 0.0-20.[address] [facility] Comment on above: Result Comment: Nega tive 0.0 - 20.0 Equivocal 20.1 - 24.9 Positive >24.9Mitochondrial (M2) Antibodies are found in 90-96% ofpatients with primary biliary cirrhosis.Performed at: [address] [id number] Director: Popeye Joseph PhD, Phone: [phone] Performed By: #### L 503.6550, L503.6075, L800.1280, L500.4050, L3000.0375, L3100.1850, L509.6000, L100.0100, L300.3900, L3400.0700, L3300.0100, L501.6710, L101.9900, L3410.2400, L501.9520, L3300.0700, L3300.1200 ####[facility] [address] [place], [address] CBC W/Diff, Automatedon 08-0 Absolute Lymph 1.64 X10 3/uL Normal 0.83-4.[address] [facility] Comment on above: Performed By: #### L 503.6550, L503.6075, L800.1280, L500.4050, L3000.0375, L3100.1850, L509.6000, L100.0100, L300.3900, L3400.0700, L3300.0100, L501.6710, L101.9900, L3410.2400, L501.9520, L3300.0700, L3300.1200 ####[facility] [address] [facility] [place], [address] Absolute Neut 4.6 X10 3/uL Normal 2.0-7.[address] [facility] Comment on above: Performed By: #### L 503.6550, L503.6075, L800.1280, L500.4050, L3000.0375, L3100.1850, L509.6000, L100.0100, L300.3900, L3400.0700, L3300.0100, L501.6710, L101.9900, L3410.2400, L501.9520, L3300.0700, L3300.1200 ####[facility] [address]vh[address]72 [facility] [place], [address] Basophils/100 WBC (Bld) 0.8 % Normal 0-1 [facility] Comment on above: Performed By: #### L 503.6550, L503.6075, L800.1280, L500.4050, L3000.0375, L3100.1850, L509.6000, L100.0100, L300.3900, L3400.0700, L3300.0100, L501.6710, L101.9900, L3410.2400, L501.9520, L3300.0700, L3300.1200 ####[facility] [address]ouf[address]46 [facility] [place], [address] Eosinophils/100 WBC (Bld) 5.5 % High 0-[address] [facility] Comment on above: Performed By: #### L 503.6550, L503.6075, L800.1280, L500.4050, L3000.0375, L3100.1850, L509.6000, L100.0100, L300.3900, L3400.0700, L3300.0100, L501.6710, L101.9900, L3410.2400, L501.9520, L3300.0700, L3300.1200 ####[facility] [address] [facility]. [place], [place], [phone] Erythrocyte distribution width (RBC) [Ratio] 12.1 % Normal 11.6-14.[address] [facility] Comment on above: Performed By: #### L 503.6550, L503.6075, L800.1280, L500.4050, L3000.0375, L3100.1850, L509.6000, L100.0100, L300.3900, L3400.0700, L3300.0100, L501.6710, L101.9900, L3410.2400, L501.9520, L3300.0700, L3300.1200 ####[facility] Submrpmggu5775 [facility]. [place], [place], [phone] Hematocrit (Bld) [Volume fraction] 48.4 % Normal 40-[address] [facility] Comment on above: Performed By: #### L 503.6550, L503.6075, L800.1280, L500.4050, L3000.0375, L3100.1850, L509.6000, L100.0100, L300.3900, L3400.0700, L3300.0100, L501.6710, L101.9900, L3410.2400, L501.9520, L3300.0700, L3300.1200 ####[facility] [address] [place], [place], [phone] Hemoglobin (Bld) [Mass/Vol] 16.6 g/dL High 13.0-16.[address] [facility] Comment on above: Performed By: #### L 503.6550, L503.6075, L800.1280, L500.4050, L3000.0375, L3100.1850, L509.6000, L100.0100, L300.3900, L3400.0700, L3300.0100, L501.6710, L101.9900, L3410.2400, L501.9520, L3300.0700, L3300.1200 ####[facility] Frioyguhng9937 [facility]. [place], [place], [phone](527) IG% 0.300 Normal 0.0-0.[address] [facility] Comment on above: Result Comment: IG% - Immature Granulocytes (promyelocytes, myelocytes andmetamyelocytes) > 1% indicates that a LEFT SHIFT is Present. Performed By: #### L 503.6550, L503.6075, L800.1280, L500.4050, L3000.0375, L3100.1850, L509.6000, L100.0100, L300.3900, L3400.0700, L3300.0100, L501.6710, L101.9900, L3410.2400, L501.9520, L3300.0700, L3300.1200 ####[facility] Ndcyzgvoyz4586 [facility]. [place], [place], [phone](892) Lymphocytes/100 WBC (Bld) 22.7 % Normal 19-[address] [facility] Comment on above: Performed By: #### L 503.6550, L503.6075, L800.1280, L500.4050, L3000.0375, L3100.1850, L509.6000, L100.0100, L300.3900, L3400.0700, L3300.0100, L501.6710, L101.9900, L3410.2400, L501.9520, L3300.0700, L3300.1200 ####[facility] [address] [place], [place], [phone] MCH (RBC) [Entitic mass] 30.2 pg Normal 27.0-32.[address] [facility] Comment on above: Performed By: #### L 503.6550, L503.6075, L800.1280, L500.4050, L3000.0375, L3100.1850, L509.6000, L100.0100, L300.3900, L3400.0700, L3300.0100, L501.6710, L101.9900, L3410.2400, L501.9520, L3300.0700, L3300.1200 ####[facility] [address] [place], [place], [phone] MCHC (RBC) [Mass/Vol] 34.3 g/dL Normal 32-36 [facility] Comment on above: Performed By: #### L 503.6550, L503.6075, L800.1280, L500.4050, L3000.0375, L3100.1850, L509.6000, L100.0100, L300.3900, L3400.0700, L3300.0100, L501.6710, L101.9900, L3410.2400, L501.9520, L3300.0700, L3300.1200 ####[facility] Vpzfqvsxsy0542 [facility] [address]. [place], [place], [address] MCV (RBC) [Entitic vol] 88.0 fL Normal 80-94 [facility] Comment on above: Performed By: #### L 503.6550, L503.6075, L800.1280, L500.4050, L3000.0375, L3100.1850, L509.6000, L100.0100, L300.3900, L3400.0700, L3300.0100, L501.6710, L101.9900, L3410.2400, L501.9520, L3300.0700, L3300.1200 ####[facility] Gafqnoxyds8503 [facility]. [place], [place], [phone] Monocytes/100 WBC (Bld) 7.3 % Normal 0-10 [facility] Comment on above: Performed By: #### L 503.6550, L503.6075, L800.1280, L500.4050, L3000.0375, L3100.1850, L509.6000, L100.0100, L300.3900, L3400.0700, L3300.0100, L501.6710, L101.9900, L3410.2400, L501.9520, L3300.0700, L3300.1200 ####[facility] Ielhzdzwrq2511 [facility] [place], [address] Neutrophils/100 WBC (Bld) 63.4 % Normal 47-[address] [facility] Comment on above: Performed By: #### L 503.6550, L503.6075, L800.1280, L500.4050, L3000.0375, L3100.1850, L509.6000, L100.0100, L300.3900, L3400.0700, L3300.0100, L501.6710, L101.9900, L3410.2400, L501.9520, L3300.0700, L3300.1200 ####[facility] Knrwucgxmv8199 [facility] [place], [address] Nucleated RBC (Bld) [#/Vol] 0 10*3/uL Normal 0-[address] [facility] Comment on above: Performed By: #### L 503.6550, L503.6075, L800.1280, L500.4050, L3000.0375, L3100.1850, L509.6000, L100.0100, L300.3900, L3400.0700, L3300.0100, L501.6710, L101.9900, L3410.2400, L501.9520, L3300.0700, L3300.1200 ####[facility] Nkwimovoqi9881 [facility] [place], [address] Platelet mean volume (Bld) [Entitic vol] 9.4 fL Normal 6.2-12.[address] [facility] Comment on above: Performed By: #### L 503.6550, L503.6075, L800.1280, L500.4050, L3000.0375, L3100.1850, L509.6000, L100.0100, L300.3900, L3400.0700, L3300.0100, L501.6710, L101.9900, L3410.2400, L501.9520, L3300.0700, L3300.1200 ####[facility] [address] [place], [place], [phone](784) Platelets (Bld) [#/Vol] 255 10*3/uL Normal 150-[address] [facility] Comment on above: Performed By: #### L 503.6550, L503.6075, L800.1280, L500.4050, L3000.0375, L3100.1850, L509.6000, L100.0100, L300.3900, L3400.0700, L3300.0100, L501.6710, L101.9900, L3410.2400, L501.9520, L3300.0700, L3300.1200 ####[facility] [address] [place], [place], [phone](658) RBC (Bld) [#/Vol] 5.50 10*6/uL Normal 4.6-6.2 [facility] Comment on above: Performed By: #### L 503.6550, L503.6075, L800.1280, L500.4050, L3000.0375, L3100.1850, L509.6000, L100.0100, L300.3900, L3400.0700, L3300.0100, L501.6710, L101.9900, L3410.2400, L501.9520, L3300.0700, L3300.1200 ####[facility] [address] [place], [place], [phone] RDW SD 39.3 fl Normal 35.1-43.[address] [facility] Comment on above: Performed By: #### L 503.6550, L503.6075, L800.1280, L500.4050, L3000.0375, L3100.1850, L509.6000, L100.0100, L300.3900, L3400.0700, L3300.0100, L501.6710, L101.9900, L3410.2400, L501.9520, L3300.0700, L3300.1200 ####[facility] [address] [place], [place], [phone] WBC (Bld) [#/Vol] 7.2 10*3/uL Normal 4.4-11.0 [facility] Comment on above: Performed By: #### L 503.6550, L503.6075, L800.1280, L500.4050, L3000.0375, L3100.1850, L509.6000, L100.0100, L300.3900, L3400.0700, L3300.0100, L501.6710, L101.9900, L3410.2400, L501.9520, L3300.0700, L3300.1200 ####[facility] [address] [place], [address] CORTISOL SERUMon 01-30-2024 CORTISOL 5.60 ug/dL Normal 3.44-22.[address] [facility] Comment on above: Order Comment: [id number] Result Comment: Adul t (AM) 5.27 - 22.45 ug/dL Adult (PM) 3.44 - 16.76 ug/dLPlease note revised CORTISOL reference range ztzibvxur14/25/2020. Performed By: #### L 503.6550, L503.6075, L800.1280, L500.4050, L3000.0375, L3100.1850, L509.6000, L100.0100, L300.3900, L3400.0700, L3300.0100, L501.6710, L101.9900, L3410.2400, L501.9520, L3300.0700, L3300.1200 ####[facility] [address] [facility] [place], [place], [phone] CRPon 01-30-2024 C-REACTIVE PROT 11.60 mg/L High 0.0-3.[address] [facility] Comment on above: Result Comment: C-Re active Protein (CRP) provides useful information for thediagnosis, therapy and monitoring of inflammatory processesand associated diseases. For the evaluation of Relative Riskfor Cardiovascular Disease, a High Sensitivity CRP (HSCRP)should be ordered. Performed By: #### L 503.6550, L503.6075, L800.1280, L500.4050, L3000.0375, L3100.1850, L509.6000, L100.0100, L300.3900, L3400.0700, L3300.0100, L501.6710, L101.9900, L3410.2400, L501.9520, L3300.0700, L3300.1200 ####[facility] [address] [facility] [address] [place], [place], [phone] Comprehensive Metabolic Prof [facility] 01-30-2024 Albumin [Mass/Vol] 3.6 g/dL Normal 3.2-5.0 [facility] Comment on above: Performed By: #### L 503.6550, L503.6075, L800.1280, L500.4050, L3000.0375, L3100.1850, L509.6000, L100.0100, L300.3900, L3400.0700, L3300.0100, L501.6710, L101.9900, L3410.2400, L501.9520, L3300.0700, L3300.1200 ####[facility] [address] [place], [place], [phone] Albumin/Globulin [Mass ratio] 0.8 {ratio} Low 0.9-2.[address] [facility] Comment on above: Performed By: #### L 503.6550, L503.6075, L800.1280, L500.4050, L3000.0375, L3100.1850, L509.6000, L100.0100, L300.3900, L3400.0700, L3300.0100, L501.6710, L101.9900, L3410.2400, L501.9520, L3300.0700, L3300.1200 ####[facility] [address] [place], [place], [phone] ALK P 137 U/L High 45-[address] [facility] Comment on above: Performed By: #### L 503.6550, L503.6075, L800.1280, L500.4050, L3000.0375, L3100.1850, L509.6000, L100.0100, L300.3900, L3400.0700, L3300.0100, L501.6710, L101.9900, L3410.2400, L501.9520, L3300.0700, L3300.1200 ####[facility] [address] [place], [place], [phone] ALT [Catalytic activity/Vol] 158 U/L High 16-[address] [facility] Comment on above: Performed By: #### L 503.6550, L503.6075, L800.1280, L500.4050, L3000.0375, L3100.1850, L509.6000, L100.0100, L300.3900, L3400.0700, L3300.0100, L501.6710, L101.9900, L3410.2400, L501.9520, L3300.0700, L3300.1200 ####[facility] [address] [place], [place], [phone] AST [Catalytic activity/Vol] 64 U/L High 15-[address] [facility] Comment on above: Performed By: #### L 503.6550, L503.6075, L800.1280, L500.4050, L3000.0375, L3100.1850, L509.6000, L100.0100, L300.3900, L3400.0700, L3300.0100, L501.6710, L101.9900, L3410.2400, L501.9520, L3300.0700, L3300.1200 ####[facility] [address] [facility] [place]. [place], [place], [id number] Bilirubin [Mass/Vol] 0.60 mg/dL Normal 0.20-1.00 [facility] Comment on above: Result Comment: For patients on eltrombopag therapy, use of Dimension [place] TBIL is not recommended. Performed By: #### L 503.6550, L503.6075, L800.1280, L500.4050, L3000.0375, L3100.1850, L509.6000, L100.0100, L300.3900, L3400.0700, L3300.0100, L501.6710, L101.9900, L3410.2400, L501.9520, L3300.0700, L3300.1200 ####[facility] [address] [place], [place], [phone] BUN/CRE 16.7 RATIO Normal 10-[address] [facility] Comment on above: Performed By: #### L 503.6550, L503.6075, L800.1280, L500.4050, L3000.0375, L3100.1850, L509.6000, L100.0100, L300.3900, L3400.0700, L3300.0100, L501.6710, L101.9900, L3410.2400, L501.9520, L3300.0700, L3300.1200 ####[facility] [address] [place], [place], [phone](255) CA,Total 9.1 mg/dL Normal 8.5-10.[address] [facility] Comment on above: Performed By: #### L 503.6550, L503.6075, L800.1280, L500.4050, L3000.0375, L3100.1850, L509.6000, L100.0100, L300.3900, L3400.0700, L3300.0100, L501.6710, L101.9900, L3410.2400, L501.9520, L3300.0700, L3300.1200 ####[facility] [address] [place], [phone] Chloride [Moles/Vol] 111 mmol/L High 98-107 [facility] Comment on above: Performed By: #### L 503.6550, L503.6075, L800.1280, L500.4050, L3000.0375, L3100.1850, L509.6000, L100.0100, L300.3900, L3400.0700, L3300.0100, L501.6710, L101.9900, L3410.2400, L501.9520, L3300.0700, L3300.1200 ####[facility] [address] [facility]. [place], [place], [id number] CO2 [Moles/Vol] 23.0 mmol/L Normal 21.0-32.[address] [facility] Comment on above: Performed By: #### L 503.6550, L503.6075, L800.1280, L500.4050, L3000.0375, L3100.1850, L509.6000, L100.0100, L300.3900, L3400.0700, L3300.0100, L501.6710, L101.9900, L3410.2400, L501.9520, L3300.0700, L3300.1200 ####[facility] [address] [facility]. [place], [place], [phone] Creatinine [Mass/Vol] 1.08 mg/dL Normal 0.70-1.30 [facility] Comment on above: Result Comment: The validity of the calculated GFR GFRAA in patients over70 years has not been determined. Clinical correlation isessential. Performed By: #### L 503.6550, L503.6075, L800.1280, L500.4050, L3000.0375, L3100.1850, L509.6000, L100.0100, L300.3900, L3400.0700, L3300.0100, L501.6710, L101.9900, L3410.2400, L501.9520, L3300.0700, L3300.1200 ####[facility] [address] [facility], [place], [address] EST GFR - AA 102 mL/min Normal >[address] [facility] Comment on above: Result Comment: Afri can Indian GFR Calc Performed By: #### L 503.6550, L503.6075, L800.1280, L500.4050, L3000.0375, L3100.1850, L509.6000, L100.0100, L300.3900, L3400.0700, L3300.0100, L501.6710, L101.9900, L3410.2400, L501.9520, L3300.0700, L3300.1200 ####[facility] [address] [place], [place], [id number] GAP 5 Normal 5-[address] [facility] Comment on above: Performed By: #### L 503.6550, L503.6075, L800.1280, L500.4050, L3000.0375, L3100.1850, L509.6000, L100.0100, L300.3900, L3400.0700, L3300.0100, L501.6710, L101.9900, L3410.2400, L501.9520, L3300.0700, L3300.1200 ####[facility] [address] [place], [place], [id number] GFR/1.73 sq M.predicted among non-blacks MDRD (S/P/Bld) [Vol rate/Area] 85 mL/min/{1.73_m2} Normal >[address] [facility] Comment on above: Result Comment: Non- GFR Calc Performed By: #### L 503.6550, L503.6075, L800.1280, L500.4050, L3000.0375, L3100.1850, L509.6000, L100.0100, L300.3900, L3400.0700, L3300.0100, L501.6710, L101.9900, L3410.2400, L501.9520, L3300.0700, L3300.1200 ####[facility] [address] [place], [address] Globulin (S) [Mass/Vol] 4.3 g/dL High 2.2-4.2 [facility] Comment on above: Performed By: #### L 503.6550, L503.6075, L800.1280, L500.4050, L3000.0375, L3100.1850, L509.6000, L100.0100, L300.3900, L3400.0700, L3300.0100, L501.6710, L101.9900, L3410.2400, L501.9520, L3300.0700, L3300.1200 ####[facility] [address] [place], [address] Glucose [Mass/Vol] 106 mg/dL Normal 74-106 [facility] Comment on above: Result Comment: Fast ing Glucose result from 100 to 125 mg/dLsuggests IMPAIRED HOMEOSTASIS per A.D.A. criteria. Performed By: #### L 503.6550, L503.6075, L800.1280, L500.4050, L3000.0375, L3100.1850, L509.6000, L100.0100, L300.3900, L3400.0700, L3300.0100, L501.6710, L101.9900, L3410.2400, L501.9520, L3300.0700, L3300.1200 ####[facility] [address] [facility] [place], [address] Potassium [Moles/Vol] 4.1 mmol/L Normal 3.5-5.1 [facility] Comment on above: Performed By: #### L 503.6550, L503.6075, L800.1280, L500.4050, L3000.0375, L3100.1850, L509.6000, L100.0100, L300.3900, L3400.0700, L3300.0100, L501.6710, L101.9900, L3410.2400, L501.9520, L3300.0700, L3300.1200 ####[facility] [address] [facility] [place], [address] Sodium [Moles/Vol] 139 mmol/L Normal 136-145 [facility] Comment on above: Performed By: #### L 503.6550, L503.6075, L800.1280, L500.4050, L3000.0375, L3100.1850, L509.6000, L100.0100, L300.3900, L3400.0700, L3300.0100, L501.6710, L101.9900, L3410.2400, L501.9520, L3300.0700, L3300.1200 ####[facility] [address] [facility] [place], [address] T PROT 7.9 g/dL Normal 6.4-8.[address] [facility] Comment on above: Performed By: #### L 503.6550, L503.6075, L800.1280, L500.4050, L3000.0375, L3100.1850, L509.6000, L100.0100, L300.3900, L3400.0700, L3300.0100, L501.6710, L101.9900, L3410.2400, L501.9520, L3300.0700, L3300.1200 ####[facility] [address] [facility] [place], [address] Urea nitrogen [Mass/Vol] 18 mg/dL Normal 7-[address] [facility] Comment on above: Performed By: #### L 503.6550, L503.6075, L800.1280, L500.4050, L3000.0375, L3100.1850, L509.6000, L100.0100, L300.3900, L3400.0700, L3300.0100, L501.6710, L101.9900, L3410.2400, L501.9520, L3300.0700, L3300.1200 ####[facility] [address] [place], [address] Erythrocyte Sed Rateon 01-29 SED RATE 13 mm/hr Normal 0-[address] [facility] Comment on above: Performed By: #### L 503.6550, L503.6075, L800.1280, L500.4050, L3000.0375, L3100.1850, L509.6000, L100.0100, L300.3900, L3400.0700, L3300.0100, L501.6710, L101.9900, L3410.2400, L501.9520, L3300.0700, L3300.1200 ####[facility] [address] [place], [address] Ferritinon 01-30-2024 Ferritin [Mass/Vol] 409 ng/mL High 26-388 [facility] Comment on above: Performed By: #### L 503.6550, L503.6075, L800.1280, L500.4050, L3000.0375, L3100.1850, L509.6000, L100.0100, L300.3900, L3400.0700, L3300.0100, L501.6710, L101.9900, L3410.2400, L501.9520, L3300.0700, L3300.1200 ####[facility] [address], [address] Gastroenterology Visit Repor ton 01-30-2024 Gastroenterology Visit Report Normal [facility] Iron Binding Capacity,Totalo n 01-30-2024 TIBC 278 ug/dL Normal 250-[address] [facility] Comment on above: Performed By: #### L 503.6550, L503.6075, L800.1280, L500.4050, L3000.0375, L3100.1850, L509.6000, L100.0100, L300.3900, L3400.0700, L3300.0100, L501.6710, L101.9900, L3410.2400, L501.9520, L3300.0700, L3300.1200 ####[facility] [address] [place], [address] Prothrombin Time w/INRon INR Coag (PPP) [Relative time] 0.9 {INR} Normal [facility] Comment on above: Performed By: #### L 503.6550, L503.6075, L800.1280, L500.4050, L3000.0375, L3100.1850, L509.6000, L100.0100, L300.3900, L3400.0700, L3300.0100, L501.6710, L101.9900, L3410.2400, L501.9520, L3300.0700, L3300.1200 ####[facility] [address] [place], [address] PT Coag (PPP) [Time] 12.6 s Normal 11.7-14.9 [facility] Comment on above: Performed By: #### L 503.6550, L503.6075, L800.1280, L500.4050, L3000.0375, L3100.1850, L509.6000, L100.0100, L300.3900, L3400.0700, L3300.0100, L501.6710, L101.9900, L3410.2400, L501.9520, L3300.0700, L3300.1200 ####[facility] [address] [place], [address] Thyroid Stim Hormone (TSH)on 01-30-2024 TSH 3.00 uIU/mL Normal 0.358-3.[address] [facility] Comment on above: Performed By: #### L 503.6550, L503.6075, L800.1280, L500.4050, L3000.0375, L3100.1850, L509.6000, L100.0100, L300.3900, L3400.0700, L3300.0100, L501.6710, L101.9900, L3410.2400, L501.9520, L3300.0700, L3300.1200 ####[facility] [address] [place], [address] CBC W/Diff, Automatedon 07-0 9-2024 Absolute Lymph 1.78 X10 3/uL Normal 0.83-4.[address] [facility] Comment on above: Performed By: #### L 500.4100, L100.0100, L500.4050, L501.9985, L501.2450 ####[facility] [address] [place], [address] Absolute Neut 4.5 X10 3/uL Normal 2.0-7.[address] [facility] Comment on above: Performed By: #### L 500.4100, L100.0100, L500.4050, L501.9985, L501.2450 ####[facility] [address] [place], [address] Basophils/100 WBC (Bld) 0.7 % Normal 0-1 [facility] Comment on above: Performed By: #### L 500.4100, L100.0100, L500.4050, L501.9985, L501.2450 ####[facility] [address] [place], [address] Eosinophils/100 WBC (Bld) 3.9 % Normal 0-[address] [facility] Comment on above: Performed By: #### L 500.4100, L100.0100, L500.4050, L501.9985, L501.2450 ####[facility] [address] [place], [address] Erythrocyte distribution width (RBC) [Ratio] 12.4 % Normal 11.6-14.[address] [facility] Comment on above: Performed By: #### L 500.4100, L100.0100, L500.4050, L501.9985, L501.2450 ####[facility] [address] [place], [address] Hematocrit (Bld) [Volume fraction] 49.9 % Normal 40-[address] [facility] Comment on above: Performed By: #### L 500.4100, L100.0100, L500.4050, L501.9985, L501.2450 ####[facility] [address] [place], [address] Hemoglobin (Bld) [Mass/Vol] 16.9 g/dL High 13.0-16.[address] [facility] Comment on above: Performed By: #### L 500.4100, L100.0100, L500.4050, L501.9985, L501.2450 ####[facility] [address] [place], [address] IG% 0.100 Normal 0.0-0.[address] [facility] Comment on above: Result Comment: IG% - Immature Granulocytes (promyelocytes, myelocytes andmetamyelocytes) > 1% indicates that a LEFT SHIFT is Present. Performed By: #### L 500.4100, L100.0100, L500.4050, L501.9985, L501.2450 ####[facility] [address] [place], [address] Lymphocytes/100 WBC (Bld) 24.9 % Normal 19-[address] [facility] Comment on above: Performed By: #### L 500.4100, L100.0100, L500.4050, L501.9985, L501.2450 ####[facility] [address] [place], [address] MCH (RBC) [Entitic mass] 30.1 pg Normal 27.0-32.[address] [facility] Comment on above: Performed By: #### L 500.4100, L100.0100, L500.4050, L501.9985, L501.2450 ####[facility] [address] [place], [address] MCHC (RBC) [Mass/Vol] 33.9 g/dL Normal 32-36 [facility] Comment on above: Performed By: #### L 500.4100, L100.0100, L500.4050, L501.9985, L501.2450 ####[facility] [address] [place], [address] MCV (RBC) [Entitic vol] 88.8 fL Normal 80-94 [facility] Comment on above: Performed By: #### L 500.4100, L100.0100, L500.4050, L501.9985, L501.2450 ####[facility] [address] [place], [address] Monocytes/100 WBC (Bld) 7.4 % Normal 0-10 [facility] Comment on above: Performed By: #### L 500.4100, L100.0100, L500.4050, L501.9985, L501.2450 ####[facility] [address] [place], [address] Neutrophils/100 WBC (Bld) 63.0 % Normal 47-[address] [facility] Comment on above: Performed By: #### L 500.4100, L100.0100, L500.4050, L501.9985, L501.2450 ####[facility] [address] [place], [address] Nucleated RBC (Bld) [#/Vol] 0 10*3/uL Normal 0-[address] [facility] Comment on above: Performed By: #### L 500.4100, L100.0100, L500.4050, L501.9985, L501.2450 ####[facility] [address] [place], [address] Platelet mean volume (Bld) [Entitic vol] 9.9 fL Normal 6.2-12.[address] [facility] Comment on above: Performed By: #### L 500.4100, L100.0100, L500.4050, L501.9985, L501.2450 ####[facility] [address] [place], [address] Platelets (Bld) [#/Vol] 289 10*3/uL Normal 150-[address] [facility] Comment on above: Performed By: #### L 500.4100, L100.0100, L500.4050, L501.9985, L501.2450 ####[facility] [address] [place], [address] RBC (Bld) [#/Vol] 5.62 10*6/uL Normal 4.6-6.2 [facility] Comment on above: Performed By: #### L 500.4100, L100.0100, L500.4050, L501.9985, L501.2450 ####[facility] [address] [place], [address] RDW SD 40.3 fl Normal 35.1-43.[address] [facility] Comment on above: Performed By: #### L 500.4100, L100.0100, L500.4050, L501.9985, L501.2450 ####[facility] [address] [place], [address] WBC (Bld) [#/Vol] 7.2 10*3/uL Normal 4.4-11.0 [facility] Comment on above: Performed By: #### L 500.4100, L100.0100, L500.4050, L501.9985, L501.2450 ####[facility] [address] [place], [address] Comprehensive Metabolic Prof ilon 01-06-2024 Albumin [Mass/Vol] 4.0 g/dL Normal 3.2-5.0 [facility] Comment on above: Performed By: #### L 500.4100, L100.0100, L500.4050, L501.9985, L501.2450 ####[facility] [address] [place], [address] Albumin/Globulin [Mass ratio] 0.9 {ratio} Normal 0.9-2.[address] [facility] Comment on above: Performed By: #### L 500.4100, L100.0100, L500.4050, L501.9985, L501.2450 ####[facility] [address] [place], [address] ALK P 134 U/L High 45-[address] [facility] Comment on above: Performed By: #### L 500.4100, L100.0100, L500.4050, L501.9985, L501.2450 ####[facility] [address] [place], [address] ALT [Catalytic activity/Vol] 176 U/L High 16-[address] [facility] Comment on above: Performed By: #### L 500.4100, L100.0100, L500.4050, L501.9985, L501.2450 ####[facility] [address] [place], [address] AST [Catalytic activity/Vol] 76 U/L High 15-[address] [facility] Comment on above: Performed By: #### L 500.4100, L100.0100, L500.4050, L501.9985, L501.2450 ####[facility] [address] [place], [address] Bilirubin [Mass/Vol] 0.90 mg/dL Normal 0.20-1.00 [facility] Comment on above: Result Comment: For patients on eltrombopag therapy, use of Dimension [place] TBIL is not recommended. Performed By: #### L 500.4100, L100.0100, L500.4050, L501.9985, L501.2450 ####[facility] [address] [place], [address] BUN/CRE 11.5 RATIO Normal 10-[address] [facility] Comment on above: Performed By: #### L 500.4100, L100.0100, L500.4050, L501.9985, L501.2450 ####[facility] [address] [place], [address] CA,Total 10.3 mg/dL High 8.5-10.[address] [facility] Comment on above: Performed By: #### L 500.4100, L100.0100, L500.4050, L501.9985, L501.2450 ####[facility] [address] [place], [address] Chloride [Moles/Vol] 106 mmol/L Normal 98-107 [facility] Comment on above: Performed By: #### L 500.4100, L100.0100, L500.4050, L501.9985, L501.2450 ####[facility] [address] [place], [address] CO2 [Moles/Vol] 25.0 mmol/L Normal 21.0-32.[address] [facility] Comment on above: Performed By: #### L 500.4100, L100.0100, L500.4050, L501.9985, L501.2450 ####[facility] [address] [place], [address] Creatinine [Mass/Vol] 1.30 mg/dL Normal 0.70-1.30 [facility] Comment on above: Result Comment: The validity of the calculated GFR GFRAA in patients over70 years has not been determined. Clinical correlation isessential. Performed By: #### L 500.4100, L100.0100, L500.4050, L501.9985, L501.2450 ####[facility] [address] [place], [address] EST GFR - AA 83 mL/min Normal >[address] [facility] Comment on above: Result Comment: Afri can Indian GFR Calc Performed By: #### L 500.4100, L100.0100, L500.4050, L501.9985, L501.2450 ####[facility] [address] [place], [address] GAP 7 Normal 5-[address] [facility] Comment on above: Performed By: #### L 500.4100, L100.0100, L500.4050, L501.9985, L501.2450 ####[facility] [address] [place], [address] GFR/1.73 sq M.predicted among non-blacks MDRD (S/P/Bld) [Vol rate/Area] 68 mL/min/{1.73_m2} Normal >[address] [facility] Comment on above: Result Comment: Non- GFR Calc Performed By: #### L 500.4100, L100.0100, L500.4050, L501.9985, L501.2450 ####[facility] [address] [place], [address] Globulin (S) [Mass/Vol] 4.4 g/dL High 2.2-4.2 [facility] Comment on above: Performed By: #### L 500.4100, L100.0100, L500.4050, L501.9985, L501.2450 ####[facility] [address] [place], [address] Glucose [Mass/Vol] 116 mg/dL High 74-106 [facility] Comment on above: Result Comment: Fast ing Glucose result from 100 to 125 mg/dLsuggests IMPAIRED HOMEOSTASIS per A.D.A. criteria. Performed By: #### L 500.4100, L100.0100, L500.4050, L501.9985, L501.2450 ####[facility] [address] [place], [address] Potassium [Moles/Vol] 3.9 mmol/L Normal 3.5-5.1 [facility] Comment on above: Performed By: #### L 500.4100, L100.0100, L500.4050, L501.9985, L501.2450 ####[facility] [address] [place], [address] Sodium [Moles/Vol] 138 mmol/L Normal 136-145 [facility] Comment on above: Performed By: #### L 500.4100, L100.0100, L500.4050, L501.9985, L501.2450 ####[facility] [address] [place], [address] T PROT 8.4 g/dL High 6.4-8.[address] [facility] Comment on above: Performed By: #### L 500.4100, L100.0100, L500.4050, L501.9985, L501.2450 ####[facility] [address] [place], [address] Urea nitrogen [Mass/Vol] 15 mg/dL Normal 7-[address] [facility] Comment on above: Performed By: #### L 500.4100, L100.0100, L500.4050, L501.9985, L501.2450 ####[facility] [address] [place], [address] Hemoglobin A1con 07-09-2024 HbA1c (Bld) [Mass fraction] 5.5 % Normal 3.8-5.[address] [facility] Comment on above: Result Comment: Norm al < 5.7 % Prediabetic 5.7 - 6.4 % Diabetic >or= 6.5 % Please note range changes. Performed By: #### L 500.4100, L100.0100, L500.4050, L501.9985, L501.2450 ####[facility] [address] [place], [address] Internal Medicine Office Vis iton 01-06-2024 Internal Medicine Office Visit Normal [facility] Lipaseon 01-06-2024 Lipase [Catalytic activity/Vol] 41 U/L Normal 13-[address] [facility] Comment on above: Result Comment: Vikram martin note:LIPASE revised reference range effective 22.New Lipase methodology. Expected to produce lower valuesthan the previous assay method.NEW Reference Range: 13 - 75 U/L Performed By: #### L 500.4100, L100.0100, L500.4050, L501.9985, L501.2450 ####[facility] [address] [place], [address] Lipid Profileon 01-06-2024 Cholesterol [Mass/Vol] 245 mg/dL High 200 [facility] Comment on above: Result Comment: <200 mg/dL Desirable 200-240 mg/dL Borderline >240 mg/dL High Risk Performed By: #### L 500.4100, L100.0100, L500.4050, L501.9985, L501.2450 ####[facility] [address] [place], [address] Cholesterol in HDL [Mass/Vol] 44 mg/dL Normal [facility] Comment on above: Result Comment: The drugs N-Acetylcysteine and Metamizole may falselydepress this assay. Reference Range HDL <40 mg/dL Low HDL Cholesterol HDL >or= 60 mg/dL High HDL Cholesterol Performed By: #### L 500.4100, L100.0100, L500.4050, L501.9985, L501.2450 ####[facility] [address] [place], [address] Cholesterol in LDL [Mass/Vol] 162 mg/dL High 0-[address] [facility] Comment on above: Performed By: #### L 500.4100, L100.0100, L500.4050, L501.9985, L501.2450 ####[facility] [address] [place], [address] Cholesterol in VLDL [Mass/Vol] 39 mg/dL Normal 5-[address] [facility] Comment on above: Performed By: #### L 500.4100, L100.0100, L500.4050, L501.9985, L501.2450 ####[facility] [address] [place], [address] Triglyceride [Mass/Vol] 193 mg/dL Normal [facility] Comment on above: Result Comment: The drugs N-Acetylcysteine and Metamizole may falselydepress this assay.Serum Triglycerides Reference Interval Normal <150 mg/dL Borderline high 150 - 199 mg/dL High 200 - 499 mg/dL Very High > or = 500 mg/dL Performed By: #### L 500.4100, L100.0100, L500.4050, L501.9985, L501.2450 ####[facility] [address] [place], [address] .Auto Diffon 01-04-2024 Basophil, Absolute 0.1 10 3/mcL Normal 0.0-0.2 [facility] ([place]) Comment on above: Performed By: #### G FR, LIP, CBC, ADMARCK WESLEY ANEU, MDW #### [place] [address] [address] Basophils/100 WBC (Bld) 0.6 % Normal 0.0-2.5 A [facility] ([place]) Comment on above: Performed By: #### G FR, LIP, CBC, ADMARYJANE, BURAK ACHARYA MDW #### [address] [address] Eosinophil, Absolute 0.4 10 3/mcL Normal 0.0-0.4 [facility] ([place]) Comment on above: Performed By: #### G FR, LIP, CBC, ADIFF, CMP, ANEU, MDW #### [address] [address] Eosinophils/100 WBC (Bld) 4.0 % Normal 0.0-7.0 [facility] ([place]) Comment on above: Performed By: #### G FR, LIP, CBC, ADIFF, CMP, ANEU, MDW #### [address] [address] Lymphocyte, Absolute 2.4 10 3/mcL Normal 0.8-3.9 [facility] ([place]) Comment on above: Performed By: #### G FR, LIP, CBC, ADIFF, CMP, ANEU, MDW #### [address] [address] Lymphocytes/100 WBC (Bld) 23.7 % Normal 10.0-50.0 [facility] ([place]) Comment on above: Performed By: #### G FR, LIP, CBC, ADIFF, CMP, ANEU, MDW #### [address] [address] Monocyte, Absolute 0.8 10 3/mcL Normal 0.2-1.0 [facility] ([place]) Comment on above: Performed By: #### G FR, LIP, CBC, ADIFF, CMP, ANEU, MDW #### [address] [address] Monocytes/100 WBC (Bld) 7.6 % Normal 1.7-13.0 [facility] ([place]) Comment on above: Performed By: #### G FR, LIP, CBC, ADIFF, CMP, ANEU, MDW #### [address] [address] Neutrophils/100 WBC (Bld) 64.1 % Normal 37.0-80.0 [facility] ([place]) Comment on above: Performed By: #### G FR, LIP, CBC, ADIFF, CMP, CINDY SUMNER #### [address] [address] .GFRon 01-04-2024 GFR Non- 67 ml/min/1.73sqm Normal [facility] ([place]) Comment on above: Result Comment: GFR Population mean for , Non- Americans Ages 20-29 = 116 mL/min/1.73 sq.m. Ages 30-39 = 107 mL/min/1.73 sq.m. Ages 40-49 = 99 mL/min/1.73 sq.m. Ages 50-59 = 93 mL/min/1.73 sq.m. Ages 60-69 = 85 mL/min/1.73 sq.m. Ages 70+ = 75 mL/min/1.73 sq.m. Chronic Kidney Disease: Less than 60 mL/min/1.73 square meters End Stage Renal Disease: Less than 15 mL/min/1.73 square meters Performed By: #### G FR, LIP, CBC, ADIFF, CMP, CINYD SUMNER #### [address] [address] GFR 82 ml/min/1.73sqm Normal [facility] ([place]) Comment on above: Result Comment: GFR Population mean for , Non- Americans Ages 20-29 = 116 mL/min/1.73 sq.m. Ages 30-39 = 107 mL/min/1.73 sq.m. Ages 40-49 = 99 mL/min/1.73 sq.m. Ages 50-59 = 93 mL/min/1.73 sq.m. Ages 60-69 = 85 mL/min/1.73 sq.m. Ages 70+ = 75 mL/min/1.73 sq.m. Chronic Kidney Disease: Less than 60 mL/min/1.73 square meters End Stage Renal Disease: Less than 15 mL/min/1.73 square meters Performed By: #### G FR, LIP, CBC, ADIFF, CMP, CINDY SUMNER #### [address] [address] .MDWon 01-04-2024 Monocyte Distribution Width 19.58 Normal 0.00-20.00 [facility] ([place]) Comment on above: Result Comment: For ED adult patients suspected of sepsis, MDW<=20.0 does not rule out sepsis or risk of sepsis Performed By: #### G FR, LIP, CBC, ADIFF, CMP, ANEU, MDW #### [place] [address] .NEUABSon 01-04-2024 Neutrophil, Absolute 6.4 10 3/mcL High 2.9-6.2 [facility] ([place]) Comment on above: Performed By: #### G FR, LIP, CBC, ADIFF, CMP, ANEUMDW #### [place] [address] CBCon 01-04-2024 Erythrocyte distribution width (RBC) [Ratio] 13.2 % Normal 11.5-14.5 [facility] ([place]) Comment on above: Performed By: #### G FR, LIP, CBC, ADIFF, CMP, ANEU, CINDY #### [place] [address] Hematocrit (Bld) [Volume fraction] 49.3 % Normal 42.0-52.0 [facility] ([place]) Comment on above: Performed By: #### G FR, LIP, CBC, ADIFF, CMP, ANEU, W #### [place] [address] Hgb 17.4 G/dL Normal 14.0-18.0 [facility] [facility] ([place] Comment on above: Performed By: #### G FR, LIP, CBC, ADIFF, CMP, MD BURAKW #### [place] [address] MCH (RBC) [Entitic mass] 31.8 pg High 27.0-31.2 [facility] ([place]) Comment on above: Performed By: #### G FR, LIP, CBC, ADIFF, CMP, ANEU, MDW #### [place] [address] MCHC 35.3 G/dL Normal 31.8-35.4 [facility] ([place]) Comment on above: Performed By: #### G FR, LIP, CBC, ADIFF, CMP, CINDY SUMNER #### [address] [address] MCV (RBC) [Entitic vol] 90.0 fL Normal 80.0-94.0 [facility] ([place]) Comment on above: Performed By: #### G FR, LIP, CBC, ADIFF, CMP, CINDY SUMNER #### [address] [address] Platelet 247 10 3/mcL Normal 130-400 [facility] ([place]) Comment on above: Performed By: #### G FR, LIP, CBC, ADIFF, CMP, CINDY SUMNER #### [address] [address] Platelet mean volume (Bld) [Entitic vol] 7.5 fL Normal 7.4-10.4 [facility] ([place]) Comment on above: Performed By: #### G FR, LIP, CBC, ADIFF, BURAK ACHARYA MDW #### [place] [id number] RBC 5.48 10 6/mcL Normal 4.04-6.13 [facility] ([place]) Comment on above: Performed By: #### G FR, LIP, CBC, ADIFF, CMPBURAK MDW #### [place] [id number] WBC 10.0 10 3/mcL Normal 4.6-10.8 [facility] ([place]) Comment on above: Performed By: #### G FR, LIP, CBC, ADIFF, CMPBURAK MDW #### [address] [address] CMPon 01-04-2024 ALT [Catalytic activity/Vol] 198 U/L High 16-63 [facility] ([place]) Comment on above: Performed By: #### G FR, LIP, CBC, ADIFF, CMP, CINDY SUMNER #### [address] [address] AST [Catalytic activity/Vol] 63 U/L High 10-40 [facility] ([place]) Comment on above: Performed By: #### G FR, LIP, CBC, ADIFF, CMP, CINDY SUMNER #### [address] [address] Bili Total 0.5 mg/dL Normal 0.2-1.0 [facility] ([place]) Comment on above: Result Comment: Use of this assay is not recommended for patients undergoing treatment with eltrombopag due to the potential for falsely elevated results. Performed By: #### G FR, LIP, CBC, ADIFF, CMP, CINDY SUMNER #### [address] [address] Albumin Level 4.0 G/dL Normal 3.5-5.0 [facility] ([place]) Comment on above: Performed By: #### G FR, LIP, CBC, ADIFF, MARCK, CINDY SUMNER #### [address] [address] Albumin/Globulin [Mass ratio] 1.1 {ratio} Normal 1.1-2.5 [facility] ([place]) Comment on above: Performed By: #### G FR, LIP, CBC, ADIFF, CMP, CINDY SUMNER #### [address] [address] ALP [Catalytic activity/Vol] 135 U/L Normal 40-135 [facility] ([place]) Comment on above: Performed By: #### G FR, LIP, CBC, ADIFF, CMP, CINDY SUMNER #### [address] [address] BUN/Creatinine Ratio 14 ratio Normal 7-27 [facility] ([place]) Comment on above: Performed By: #### G FR, LIP, CBC, ADIFF, CMP, CINDY SUMNER #### [address] [address] Calcium [Mass/Vol] 9.8 mg/dL Normal 8.4-10.2 [facility] ([place]) Comment on above: Performed By: #### G FR, LIP, CBC, ADIFF, CMP, CINDY SUMNER #### [address] [address] Chloride [Moles/Vol] 106 mmol/L Normal 98-107 [facility] ([place]) Comment on above: Performed By: #### G FR, LIP, CBC, ADIFF, CMP, MD BURAKW #### [address] [address] CO2 [Moles/Vol] 23 mmol/L Normal 22-29 [facility] ([place]) Comment on above: Performed By: #### G FR, LIP, CBC, ADIFF, CMP, CINDY SUMNER #### [address] [address] Creatinine [Mass/Vol] 1.25 mg/dL Normal 0.70-1.30 [facility] ([place]) Comment on above: Performed By: #### G FR, LIP, CBC, ADIFF, CMP, CINDY SUMNER #### [address] [address] Electrolyte Balance 13.0 mEq/L Normal 4.0-15.0 [facility] ([place]) Comment on above: Performed By: #### G FR, LIP, CBC, ADIFF, CMP, BURAK, W #### [address] [address] Globulin 3.7 G/dL Normal [facility] ([place]) Comment on above: Performed By: #### G FR, LIP, CBC, ADIFF, CMP, CINDY SUMNER #### [address] [address] Glucose [Mass/Vol] 128 mg/dL High 70-105 [facility] ([place]) Comment on above: Performed By: #### G FR, LIP, CBC, ADIFF, CMP, ANEU, W #### [address] [address] Potassium [Moles/Vol] 4.1 mmol/L Normal 3.5-5.1 [facility] ([place]) Comment on above: Performed By: #### G FR, LIP, CBC, ADIFF, CMP, CINDY SUMNER #### [place] [address] [place], [place] [address] Sodium [Moles/Vol] 142 mmol/L Normal 136-145 [facility] ([place]) Comment on above: Performed By: #### G FR, LIP, CBC, ADIFF, CMP, BURAK, W #### [address] [address] Total Protein 7.7 G/dL Normal 6.4-8.2 [facility] ([place]) Comment on above: Performed By: #### G FR, LIP, CBC, ADIFF, CMP, CINDY SUMNER #### [address] [address] Urea nitrogen [Mass/Vol] 17 mg/dL Normal 7-18 [facility] ([place]) Comment on above: Performed By: #### G FR, LIP, CBC, ADIFF, CMP, CINDY SUMNER #### [address] [address] [address] ABDOMEN/PELVIS W/O CONTRA STon 01-04-2024 CT ABDOMEN/PELVIS W/O CONTRAST ORIGINAL EXAMINATION: CT OF THE ABDOMEN AND PELVIS WITHOUT CONTRAST 01/04/2024 1:37 am TECHNIQUE: CT of the abdomen and pelvis was performed without the administration of intravenous contrast. Multiplanar reformatted images are provided for review. Automated exposure control, iterative reconstruction, and/or weight based adjustment of the mA/kV was utilized to reduce the radiation dose to as low as reasonably achievable. COMPARISON: None. HISTORY: ORDERING SYSTEM PROVIDED HISTORY: Reason for Exam: abdominal pain FINDINGS: Lower Chest: No acute findings. Organs: The liver is normal in size. There is no hepatic lesion. Gallbladder is normal in size. Calcified gallstone is present at the neck of the gallbladder. There is no gallbladder wall thickening. Bile ducts are not dilated. The pancreas, spleen, and the adrenal glands are normal. The right kidney is normal in size and appearance. There is tiny residual soft tissue at the left renal fossa consistent with a severely atrophic or hypoplastic left kidney. No urinary tract stone or obstruction is present on either side. GI/Bowel: There is no intestinal obstruction or inflammation. The appendix is normal. No free intraperitoneal air or abnormal fluid collection is present in the abdomen. Pelvis: The urinary bladder is partly distended and contains no stones. Prostate is not enlarged. There is no abnormal fluid collection in the pelvis. Peritoneum/Retroperitoneu m: There is no retroperitoneal lymph node enlargement. Abdominal aorta and inferior vena cava are normal. Bones/Soft Tissues: Mild anterior compression of T11 vertebral body appears chronic but is of indeterminate age. Small umbilical hernia contains only fat with no sign of complication. IMPRESSION: 1. Cholelithiasis without CT evidence of acute cholecystitis. 2. Severely atrophic or hypoplastic left kidney. 3. Mild anterior compression of T11 vertebral body appears chronic but is of indeterminate age. 4. Small umbilical hernia contains only fat with no sign of complication. Interpreted by: Ari Moreno MD Preliminary Report By: Ari Moreno MD Electronically signed By Ari Moreno MD Dictated Date: 01/04/2024 1:47:34 AM Prelim Date: 01/04/2024 1:52:07 AM Sign Date: 01/04/2024 1:52:07 AM Ordering Provider: JENNIFFER VILLASENOR [facility] ([place]) LABORATORYOrdered By: SYSTEM SYSTEM on 01-04-2024 Albumin BCP dye [Mass/Vol] 4.0 G/dL Normal 3.5 - 5.0 G/dL AO ADM SS Albumin/Globulin [Mass ratio] 1.1 {ratio} Normal 1.1 - 2.5 ratio AO ADM SS ALP [Catalytic activity/Vol] 135 U/L Normal 40 - 135 U/L AO ADM SS ALT With P-5'-P [Catalytic activity/Vol] 198 U/L High 16 - 63 U/L AO ADM SS AST With P-5'-P [Catalytic activity/Vol] 63 U/L High 10 - 40 U/L AO ADM SS Basophil, Absolute 0.1 103/mcL Normal 0.0 - 0.2 10^3/mcL AO Workflow SS Basophils/100 WBC (Bld) 0.6 % Normal 0.0 - 2.5 % AO Workflow SS Bilirubin [Mass/Vol] 0.5 mg/dL Normal 0.2 - 1 .0 mg/dL AO ADM SS Comment on above: Interpretive Data: U se of this assay is not recommended for patients undergoing treatment with eltrombopag due to the potential for falsely elevated results. Calcium [Mass/Vol] 9.8 mg/dL Normal 8.4 - 10. 2 mg/dL AO ADM SS Chloride [Moles/Vol] 106 mmol/L Normal 98 - 10 7 mmol/L AO ADM SS CO2 [Moles/Vol] 23 mmol/L Normal 22 - 29 mmol/L AO ADM SS Creatinine [Mass/Vol] 1.25 mg/dL Normal 0.70 - 1.30 mg/dL AO ADM SS Electrolyte Balance 13.0 mEq/L Normal 4.0 - 15 .0 mEq/L AO ADM SS Eosinophil, Absolute 0.4 103/mcL Normal 0.0 - 0 .4 10^3/mcL AO Workflow SS Eosinophils/100 WBC (Bld) 4.0 % Normal 0.0 - 7.0 % AO Workflow SS Erythrocyte distribution width (RBC) [Ratio] 13.2 % Normal 11.5 - 14.5 % AO Workflow SS GFR/1.73 sq M.predicted among blacks MDRD (S/P/Bld) [Vol rate/Area] 82 ml/min/1.73sqm Invalid Interpretation Code AO Chemistry S Comment on above: Interpretive Data: GFR Population mean for , Non- Americans Ages 20-29 = 116 mL/min/1.73 sq.m. Ages 30-39 = 107 mL/min/1.73 sq.m. Ages 40-49 = 99 mL/min/1.73 sq.m. Ages 50-59 = 93 mL/min/1.73 sq.m. Ages 60-69 = 85 mL/min/1.73 sq.m. Ages 70+ = 75 mL/min/1.73 sq.m. Chronic Kidney Disease: Less than 60 mL/min/1.73 square meters End Stage Renal Disease: Less than 15 mL/min/1.73 square meters GFR/1.73 sq M.predicted among non-blacks MDRD (S/P/Bld) [Vol rate/Area] 67 ml/min/1.73sqm Invalid Interpretation Code AO Chemistry S Comment on above: Interpretive Data: GFR Population mean for , Non- Americans Ages 20-29 = 116 mL/min/1.73 sq.m. Ages 30-39 = 107 mL/min/1.73 sq.m. Ages 40-49 = 99 mL/min/1.73 sq.m. Ages 50-59 = 93 mL/min/1.73 sq.m. Ages 60-69 = 85 mL/min/1.73 sq.m. Ages 70+ = 75 mL/min/1.73 sq.m. Chronic Kidney Disease: Less than 60 mL/min/1.73 square meters End Stage Renal Disease: Less than 15 mL/min/1.73 square meters Globulin 3.7 G/dL Invalid Interpretation Code AO ADM SS Glucose [Mass/Vol] 128 mg/dL High 70 - 105 mg/dL AO ADM SS Hematocrit (Bld) [Volume fraction] 49.3 % Normal 42.0 - 52.0 % AO Workflow SS Hemoglobin (Bld) [Mass/Vol] 17.4 G/dL Normal 14.0 - 18.0 G/dL AO Workflow SS Lipase [Catalytic activity/Vol] 66 U/L Normal 16 - 77 U/L AO ADM SS Lymphocyte, Absolute 2.4 103/mcL Normal 0.8 - 3 .9 10^3/mcL AO Workflow SS Lymphocytes/100 WBC (Bld) 23.7 % Normal 10.0 - 50.0 % AO Workflow SS MCH (RBC) [Entitic mass] 31.8 pg High 27. 0 - 31.2 pg AO Workflow SS MCHC 35.3 G/dL Normal 31.8 - 35.4 G/dL AO Workflow SS MCV (RBC) [Entitic vol] 90.0 fL Normal 80.0 - 94.0 fL AO Workflow SS Monocyte distribution width Auto (Bld) [Entitic vol] 19.58 1 Normal 0.00 - 20.00 AO Workflow SS Comment on above: Result Comment: For ED adult patients suspected of sepsis, MDW<=20.0 does not rule out sepsis or risk of sepsis Monocyte, Absolute 0.8 103/mcL Normal 0.2 - 1.0 10^3/mcL AO Workflow SS Monocytes/100 WBC (Bld) 7.6 % Normal 1.7 - 13.0 % AO Workflow SS Neutrophil, Absolute 6.4 103/mcL High 2.9 - 6 .2 10^3/mcL AO Workflow SS Neutrophils/100 WBC (Bld) 64.1 % Normal 37.0 - 80.0 % AO Workflow SS Platelet mean volume (Bld) [Entitic vol] 7.5 fL Normal 7.4 - 10.4 fL AO Workflow SS Platelets (Bld) [#/Vol] 247 103/mcL Normal 130 - 400 10^3/mcL AO Workflow SS Potassium [Moles/Vol] 4.1 mmol/L Normal 3.5 - 5.1 mmol/L AO ADM SS Protein [Mass/Vol] 7.7 G/dL Normal 6.4 - 8.2 G/dL AO ADM SS RBC (Bld) [#/Vol] 5.48 106/mcL Normal 4.04 - 6.13 10^6/mcL AO Workflow SS Sodium [Moles/Vol] 142 mmol/L Normal 136 - 145 mmol/L AO ADM SS Urea nitrogen [Mass/Vol] 17 mg/dL Normal 7 - 18 mg/dL AO ADM SS Urea nitrogen/Creatinine [Mass ratio] 14 ratio Normal 7 - 27 ratio AO ADM SS WBC (Bld) [#/Vol] 10.0 103/mcL Normal 4.6 - 10.8 10^3/mcL AO Workflow SS LIPon 01-04-2024 Lipase Level 66 U/L Normal 16-77 [facility] ([place]) Comment on above: Performed By: #### G FR, LIP, CBC, ADIFF, CMP, ANEU, MDW #### [place] [address] [place], [place] [address] Absolute lymphocyte countOrd ered By: Neetu Espinoza on 10-15-2023 Lymphocytes Auto (Unsp spec) [#/Vol] 2.25 10*3/uL 0.83-4.[address] [facility] Automated lymphocyte count a s percentage of total leukocytesOrdered By: Remus Ungur on 10-15-2023 Lymphocytes/100 WBC Auto (Unsp spec) 20.1 % 19-[address] [facility] Basophil percentageOrdered B y: Remus Ungur on 10-15-2023 Basophil percentage 0-5 SEEN /hpf 0-5 [facility] Basophils/100 WBC (Bld) 0.7 % 0-1 [facility] Bilirubin [Mass/Vol] 0.40 mg/dL 0.20-1.00 [facility] Comment on above: For patients on eltr ombopag therapy, use of Dimension [place] TBIL is not recommended. Chloride [Moles/Vol] 107 mmol/L 98-107 [facility] Eosinophils/100 WBC (Bld) 3.7 % 0-[address] [facility] Glucose [Mass/Vol] 119 mg/dL 74-106 [facility] Comment on above: Fasting Glucose resu lt from 100 to 125 mg/dL suggests IMPAIRED HOMEOSTASIS per A.D.A. criteria. Hemoglobin (Bld) [Mass/Vol] 16.5 g/dL 13.0-16.[address] [facility] Lactate [Moles/Vol] 0.9 mmol/L 0.4-2.0 [facility] Monocytes/100 WBC (Bld) 7.7 % 0-10 [facility] Neutrophils (Bld) [#/Vol] 7.6 10*3/uL 2.0-7.[address] [facility] Neutrophils/100 WBC (Bld) 67.6 % 47-[address] [facility] Potassium [Moles/Vol] 4.0 mmol/L 3.5-5.1 [facility] Comment on above: Slight Hemolysis, Re sult may be falsely increased. Protein [Mass/Vol] 8.2 g/dL 6.4-8.2 [facility] Sodium [Moles/Vol] 139 mmol/L 136-145 [facility] WBC (Bld) [#/Vol] 11.2 10*3/uL 4.4-11.0 [facility] Bilirubin Test strip Ql (U)O rdered By: Neetu Espinoza on 10-15-2023 Bilirubin Ql (U) Negative Negative [facility] Determination of erythrocyte mean corpuscular volume (MCV)Ordered By: Neetu Espinoza on 10-15-2023 MCV (RBC) [Entitic vol] 87.9 fL 80-94 [facility] Erythrocyte distribution wid th ratioOrdered By: Neetu Espinoza on 10-15-2023 Erythrocyte distribution width (RBC) [Ratio] 12.4 % 11.6-14.[address] [facility] Erythrocyte distribution wid th standard deviationOrdered By: Neetu Espinoza on 10-15-2023 Erythrocyte distribution width (RBC) [Entitic vol] 39.7 fL 35.1-43.[address] [facility] Hematocrit Auto (Bld) [Volum e fraction]Ordered By: Neetu Espinoza on 10-15-2023 Hematocrit (Bld) [Volume fraction] 48.0 % 40-[address] [facility] Immature granulocytes/100 WB C Auto (Bld)Ordered By: Neetu Espinoza on 10-15-2023 Immature granulocytes/100 WBC (Bld) 0.200 % 0.0-0.[address] [facility] Comment on above: IG% - Immature Granu locytes (promyelocytes, myelocytes and metamyelocytes) > 1% indicates that a LEFT SHIFT is Present. Ketones Test strip Ql (U)Ord ered By: Neetu Espinoza on 10-15-2023 Ketones Ql (U) 5 mg/dl Negative [facility] Laboratory - Chemistry and C hemistry - challengeOrdered By: [facility] Espinoza on 10-15-2023 Albumin/Globulin [Mass ratio] 1.0 {ratio} 0.9-2.[address] [facility] ALP [Catalytic activity/Vol] 118 U/L 45-[address] [facility] ALT [Catalytic activity/Vol] 202 U/L 16-[address] [facility] CO2 [Moles/Vol] 25.0 mmol/L 21.0-32.[address] [facility] Globulin (S) [Mass/Vol] 4.2 g/dL 2.2-4.2 [facility] Lipase [Catalytic activity/Vol] 54 U/L 13-[address] [facility] Comment on above: Please note:LIPASE r evised reference range effective 22. New Lipase methodology. Expected to produce lower values than the previous assay method. NEW Reference Range: 13 - 75 U/L Urea nitrogen/Creatinine [Mass ratio] 11.0 mg/mg 10-[address] [facility] Laboratory - Hematology and Cell countsOrdered By: Neetu Espinoza on 10-15-2023 MCH (RBC) [Entitic mass] 30.2 pg 27.0-32.[address] [facility] MCHC (RBC) [Mass/Vol] 34.4 g/dL 32-36 [facility] Nucleated RBC/100 WBC (Bld) [Ratio] 0 % 0-[address] [facility] Platelet mean volume (Bld) [Entitic vol] 9.4 fL 6.2-12.[address] [facility] Platelets (Bld) [#/Vol] 276 10*3/uL 150-[address] [facility] Mucus LM Ql (Urine sed)Order ed By: Neetu Espinoza on 10-15-2023 Mucus Ql (Urine sed) 0 SEEN /hpf [facility] Nitrite Test strip Ql (U)Ord ered By: Neetu Espinoza on 10-15-2023 Nitrite Ql (U) Negative Negative [facility] No Panel InformationOrdered By: Neetu Espinoza on 10-15-2023 Estimated Creatinine Clearance Calc 96.66 ml/min [facility] Estimated GFR (MDRD) Amer 73 mL/min >[address] [facility] Comment on above: GFR Calc Estimated GFR (MDRD) Non-Af Amer 60 mL/min >[address] [facility] Comment on above: Non- GFR Calc Urine RBC 0 SEEN /hpf 0-[address] [facility] Protein Test strip Ql (U)Ord ered By: Neetu Espinoza on 10-15-2023 Protein Ql (U) 15 mg/dl Negative [facility] RBC Auto (Bld) [#/Vol]Ordere d By: Neetu Espinoza on 10-15-2023 RBC (Bld) [#/Vol] 5.46 10*6/uL 4.6-6.2 [facility] Serum or plasma calcium summer urement (mass/volume)Ordered By: Neetu Espinoza on 10-15-2023 Calcium [Mass/Vol] 9.4 mg/dL 8.5-10.1 [facility] Serum or plasma creatinine m easurement (mass/volume)Ordered By: Neetu Espinoza on 10-15-2023 Creatinine [Mass/Vol] 1.45 mg/dL 0.70-1.30 [facility] Comment on above: The validity of the calculated GFR & GFRAA in patients over 70 years has not been determined. Clinical correlation is essential. Serum or plasma urea nitroge n measurement (mass/volume)Ordered By: Neetu Espinoza on 10-15-2023 Urea nitrogen [Mass/Vol] 16 mg/dL 7-[address] [facility] Squamous epithelial cells de tection in urine sediment by light microscopyOrdered By: Neetu Espinoza on 10-15-2023 Epithelial cells.squamous LM Ql (Urine sed) 0 SEEN /hpf 0-[address] [facility] Thin prep Papanicolaou smear with manual screeningOrdered By: Neetu Espinoza on 10-15-2023 Thin prep Papanicolaou smear with manual screening 4.0 g/dL 3.2-5.[address] [facility] Thin prep Papanicolaou smear with manual screening 76 U/L 15-[address] [facility] Comment on above: Slight Hemolysis, Re sult may be falsely increased. Thin prep Papanicolaou smear with manual screening 7 5-[address] [facility] Urine blood detectionOrdered By: Neetu Espinoza on 10-15-2023 RBC Ql (U) Negative Negative [facility] Urine clarityOrdered By: Lexy Espinoza on 10-15-2023 Clarity (U) Clear Clear [facility] Urine color determinationOrd ered By: Neetu Espinoza on 10-15-2023 Color (U) Yellow Yellow [facility] Urine glucose detectionOrder ed By: Neetu Espinoza on 10-15-2023 Glucose Ql (U) Normal mg/dl Normal [facility] Urine leukocyte esterase det ection by dipstickOrdered By: Neetu Espinoza on 10-15-2023 Leukocyte esterase Test strip Ql (U) 25 /ul Negative [facility] Urine pHOrdered By: Neetu mcnealr on 10-15-2023 pH (U) 7.0 [pH] 5.0 - 8.[address] [facility] Urine sediment bacteria coun t by microscopy (number/high power field)Ordered By: Neetu Espinoza on 10-15-2023 Bacteria LM.HPF (Urine sed) [#/Area] 1 /[HPF] None Seen [facility] Urine specific gravity measu rementOrdered By: Neetu Espinoza on 10-15-2023 Specific gravity (U) [Rel density] 1.015 1.002-1.[address] [facility] Urine urobilinogen measureme ntOrdered By: Neetu Espinoza on 10-15-2023 Urobilinogen Ql (U) 1 mg/dl Normal [facility] Vital Signs Date Time Vital Sign Value Performing Clinician Facility 01-10-2025 19:51-0400 Body temperature 98.4 [degF] Dr. Arun Gonzales DO Work Phone: [facility] 01-10-2025 19:51-0400 Diastolic blood pressure 79 mm[Hg] Dr. Arun Gonzaels DO Work Phone: [facility] 01-10-2025 19:51-0400 Heart rate 81 /min Dr. Arun Gonzales DO Work Phone: [facility] 01-10-2025 19:51-0400 Respiratory rate 16 /min Dr. Arun Gonzales DO Work Phone: [facility] 01-10-2025 19:51-0400 SaO2% (BldA) [Mass fraction] 100 % Dr. Arun Gonzales DO Work Phone: [facility] 01-10-2025 19:51-0400 Systolic blood pressure 128 mm[Hg] Dr. Arun Gonzales DO Work Phone: [facility] 01-10-2025 14:48-0400 Body height 182.[address] Arun Gonzales DO Work Phone: [facility] 01-10-2025 14:48-0400 Body mass index (BMI) [Ratio] 34.4 kg/m2 Dr. Arun Gonzales DO Work Phone: [facility] 01-10-2025 14:48-0400 Body weight 114.[address] Arun Gonzales DO Work Phone: [facility] 11-24-2024 11:11-0400 Body height 182.[address] Arun Gonzales DO Work Phone: [facility] 11-24-2024 11:11-0400 Body mass index (BMI) [Ratio] 33.7 kg/m2 Dr. Arun Gonzales DO Work Phone: [facility] 11-24-2024 11:11-0400 Body temperature 97.6 [degF] Dr. Arun Gonzales DO Work Phone: [facility] 11-24-2024 11:11-0400 Body weight 112.[address] Arun Gonzales DO Work Phone: [facility] 11-24-2024 11:11-0400 Diastolic blood pressure 80 mm[Hg] Dr. Arun Gonzales DO Work Phone: [facility] 11-24-2024 11:11-0400 Heart rate 102 /min Dr. Arun Gonzales DO Work Phone: [facility] 11-24-2024 11:11-0400 Respiratory rate 16 /min Dr. Arun Gonzales DO Work Phone: [facility] 11-24-2024 11:11-0400 SaO2% (BldA) [Mass fraction] 96 % Dr. Arun Gonzales DO Work Phone: [facility] 11-24-2024 11:11-0400 Systolic blood pressure 120 mm[Hg] Dr. Arun Gonzales DO Work Phone: [facility] 11-03-2024 11:36-0400 Body height 182.[address] Arun Gonzales DO Work Phone: [facility] 11-03-2024 11:36-0400 Body mass index (BMI) [Ratio] 33.3 kg/m2 Dr. Arun Gonzales DO Work Phone: [facility] 11-03-2024 11:36-0400 Body temperature 97.7 [degF] Dr. Arun Gonzales DO Work Phone: [facility] 11-03-2024 11:36-0400 Body weight 111.[address] Arun Gonzales DO Work Phone: [facility] 11-03-2024 11:36-0400 Diastolic blood pressure 100 mm[Hg] Dr. Arun Gonzales DO Work Phone: [facility] 11-03-2024 11:36-0400 Heart rate 106 /min Dr. Arun Gonzales DO Work Phone: [facility] 11-03-2024 11:36-0400 Respiratory rate 18 /min Dr. Arun Gonzales DO Work Phone: [facility] 11-03-2024 11:36-0400 SaO2% (BldA) [Mass fraction] 96 % Dr. Arun Gonzales DO Work Phone: [facility] 11-03-2024 11:36-0400 Systolic blood pressure 150 mm[Hg] Dr. Arun Gonzales DO Work Phone: [facility] 07-23-2024 18:12-0500 Body temperature 97.2 [degF] Dr. Arun Gonzales DO Work Phone: [facility] 07-23-2024 18:12-0500 Diastolic blood pressure 91 mm[Hg] Dr. Arun Gonzales DO Work Phone: [facility] 07-23-2024 18:12-0500 Heart rate 126 /min Dr. Arun Gonzales DO Work Phone: [facility] 07-23-2024 18:12-0500 Respiratory rate 20 /min Dr. Arun Gonzales DO Work Phone: [facility] 07-23-2024 18:12-0500 SaO2% (BldA) [Mass fraction] 98 % Dr. Arun Gonzales DO Work Phone: [facility] 07-23-2024 18:12-0500 Systolic blood pressure 157 mm[Hg] Dr. Arun Gonzales DO Work Phone: [facility] 07-23-2024 16:49-0500 Body mass index (BMI) [Ratio] 32.8 kg/m2 Dr. Arun Gonzales DO Work Phone: [facility] 07-23-2024 16:49-0500 Body weight 109.[address] Arun Gonzales DO Work Phone: [facility] 01-04-2024 14:00-0400 Heart rate 68 /min JENNIFFER VILLASENOR MD [facility] 01-04-2024 14:00-0400 Systolic Blood Pressure Non-Invasive 155 mm[Hg] JENNIFFER VILLASENOR MD [facility] 01-04-2024 03:27-0400 Diastolic Blood Pressure Non-Invasive 91 mm[Hg] JENNIFFER VILLASENOR MD [facility] 01-04-2024 03:27-0400 Heart rate 56 /min JENNIFFER VILLASENOR MD [facility] 01-04-2024 03:27-0400 Reason For Taking VItal Signs JENNIFFER VILLASENOR MD [facility] 01-04-2024 03:27-0400 Respiratory rate 18 /min JENNIFFER VILLASENOR MD [facility] 01-04-2024 03:27-0400 Systolic Blood Pressure Non-Invasive 137 mm[Hg] JENNIFFER VILLASENOR MD [facility] 01-04-2024 00:51-0400 Body temperature 96.98 [degF] JENNIFFER VILLASENOR MD [facility] 01-04-2024 00:51-0400 Diastolic Blood Pressure Non-Invasive 90 mm[Hg] JENNIFFER VILLASENOR MD [facility] 01-04-2024 00:51-0400 Heart rate 70 /min JENNIFFER VILLASENOR MD [facility] 01-04-2024 00:51-0400 Respiratory rate 20 /min JENNIFFER VILLASENOR MD [facility] 01-04-2024 00:51-0400 Systolic Blood Pressure Non-Invasive 135 mm[Hg] JENNIFFER VILLASENOR MD [facility] 10-15-2023 21:58-0400 Body temperature 98 [degF] [facility] 10-15-2023 21:58-0400 Diastolic blood pressure 50 mm[Hg] [facility] 10-15-2023 21:58-0400 Heart rate 69 /min [facility] 10-15-2023 21:58-0400 Respiratory rate 18 /min [facility] 10-15-2023 21:58-0400 SaO2% (BldA) [Mass fraction] 99 % [facility] 10-15-2023 21:58-0400 Systolic blood pressure 119 mm[Hg] [facility] 10-15-2023 18:29-0400 Body height 182.88 cm [facility] 10-15-2023 18:29-0400 Body mass index (BMI) [Ratio] 33.7 kg/m2 [facility] 10-15-2023 18:29-0400 Body weight 112.94 kg [facility] Encounters Encounter Date Encounter Type Care Provider Facility Start: 01-10-2025 End: 01-10-2025 Emergency department patient visit Dr. Arun Gonzales DO Work Phone: -Emergency Department Work Phone: Start: 11-24-2024 End: 11-24-[address] Arun Gonzales DO Work Phone: [facility] Work Phone: Start: 11-24-2024 End: 11-24-2024 Patient encounter procedure Danny HAIDER -[facility] Work Phone: Start: 11-24-2024 End: 11-24-2024 Patient encounter procedure Danny HAIDER -[facility] Work Phone: Start: 11-24-2024 End: 11-24-[address] Arun Gonzales DO Work Phone: [facility] Work Phone: Start: 11-24-2024 End: 11-24-2024 ambulatory Danny HAIDER Facility:[facility] Start: 11-10-2024 End: 11-10-2024 Patient encounter procedure Hina HAIDER -[facility] Work Phone: Start: 11-10-2024 End: 11-10-[address] Arun Gonazles DO Work Phone: [facility] Work Phone: Start: 11-10-2024 End: 11-10-2024 ambulatory Hina Sampson Facility:[facility] Start: 11-03-2024 End: 11-03-2024 Patient encounter procedure Danny HAIDER -[facility] Work Phone: Start: 11-03-2024 End: 11-03-2024 ambulatory Arun Gonzales Facility:[facility] Start: 08-04-2024 End: 08-04-2024 Patient encounter procedure Hina HAIDER -[facility] Work Phone: Start: 08-04-2024 End: 08-04-2024 ambulatory Arun Gonzales Facility:[facility] Start: 08-04-2024 End: 08-04-2024 ambulatory Hina Sampson Facility:[facility] Start: 07-23-2024 End: 07-23-2024 Emergency department patient visit Dr. Gm Maddox DO -Emergency Department Work Phone: Start: 07-01-2024 End: 07-01-2024 ambulatory Hina Sampson Facility:[facility] Start: 06-09-2024 End: 06-09-2024 ambulatory Arun Gonzales Facility:[facility] Start: 06-09-2024 End: 06-09-2024 ambulatory Arun Gonzales Facility:[facility] Start: 06-04-2024 End: 06-04-2024 ambulatory Hina Sampson Facility:[facility] Start: 05-28-2024 ambulatory Hina Sampson Facili ty:[facility] Start: 05-28-2024 End: 05-28-2024 ambulatory Hina Sampson Facility:[facility] Start: 04-30-2024 End: 04-30-2024 ambulatory Hina Sampson Facility:[facility] Start: 04-30-2024 End: 04-30-2024 ambulatory Hina Sampson Facility:[facility] Start: 04-29-2024 End: 04-29-2024 ambulatory Miryam Ohara Facility:[facility] Start: 04-14-2024 End: 04-14-2024 ambulatory Hina Sampson Facility:[facility] Start: 03-24-2024 End: 03-24-2024 ambulatory No Primary Care Physician Facility:[facility] Start: 03-09-2024 ambulatory Rodrigo García Facility :[facility] Start: 03-09-2024 End: 03-09-2024 ambulatory Rodrigo García Facility:[facility] Start: 03-02-2024 End: 03-02-2024 ambulatory Sari HAIDER Facility:[facility] Start: 02-18-2024 ambulatory Rodrigothong Garcaí Facility :[facility] Start: 02-17-2024 End: 02-18-2024 ambulatory Sumeet Bearden Facility:[facility] Start: 02-15-2024 End: 02-15-2024 Emergency department patient visit Arun Gonzales Facility:[facility] Start: 02-12-2024 End: 02-12-2024 ambulatory Hina Adrián Facility:[facility] Start: 02-03-2024 ambulatory Hina Sampson Facili ty:[facility] Start: 02-03-2024 End: 02-03-2024 ambulatory Hina Sampson Facility:[facility] Start: 01-30-2024 End: 01-30-2024 ambulatory Hina Sampson Facility:[facility] Start: 01-30-2024 End: 01-30-2024 ambulatory Hina Sampson Facility:[facility] Start: 01-06-2024 End: 01-06-2024 ambulatory No Primary Care Physician Facility:[facility] Start: 01-06-2024 End: 01-06-2024 ambulatory Aurn Gonzales Facility:[facility] Start: 01-04-2024 End: 01-04-2024 Emergency department patient visit JENNIFFER VILLASENOR MD [facility] Start: 10-15-2023 End: 10-15-2023 Emergency department patient visit [facility]-Emergency Department Work Phone: Procedures Date Procedure Procedure Detail Performing Clinician Start: 01-10-2025 Urnls dip stick/tabl et reagent auto microscopy Dr. Arun Gonzales DO Work Phone: Start: 01-10-2025 X-ray of chest, PA a nd lateral views Dr. Arun Gonzales DO Work Phone: Start: 01-10-2025 D-dimer assay, quantitative Dr. Arun Gonzales DO Work Phone: Comment on above: NORMAL D-Dimer level (<0.50) indicates no DVT or PE. Start: 01-10-[address] Arun Gonzales DO Work Phone: Start: 08-04-[address] Fam Gonzales DO Work Phone: Comment on above: Performed at: [place] [id number] Director: Popeye Joseph PhD, Phone: [phone] Start: 08-04-[address] Chantal Gonzales DO Work Phone: Comment on above: The atypical pANCA p attern has been observed in asignificant percentage of patients with ulcerative colitis,primary sclerosing cholangitis and autoimmune hepatitis. Start: 08-04-2024 Antibody to centrome re measurement Dr. Arun Gonzales DO Work Phone: Comment on above: Test not performed Start: 08-04-2024 Antibody to extracta ble nuclear antigen measurement Dr. Arun Gonzales DO Work Phone: Comment on above: Test not performed Start: 08-04-2024 Antibody to LAKEISHA-[address] Arun Gonzales DO Work Phone: Comment on above: Test not performed Start: 08-04-2024 Antibody to lupus La protein measurement Dr. Arun Gonzales DO Work Phone: Comment on above: Test not performed Start: 08-04-2024 Antibody to SS-A measurement Dr. Arun Gonzales DO Work Phone: Comment on above: Test not performed Start: 08-04-[address] 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 Arun Gonzales DO Work Phone: Comment on above: Test not performed Start: 07-23-[address] Arun Gonzales DO Work Phone: Start: 07-23-2024 Measurement of renal function Dr. Arun Gonzales DO Work Phone: Comment on above: GFR Calc Start: 10-15-2023 Computed tomography of abdomen and pelvis with intravenous contrast Start: 10-15-2023 US scan of gallbladder History of cholecystectomy S/P laparoscopic cholecystectomy Dr. Arun Gonzales DO Work Phone: Comment on above: 02/17/24 Plan of Treatment Date Care Activity Detail Author Start: 01-10-2025 [facility] Start: 01-10-2025 [facility] Start: 11-24-[address] [facility] Start: 08-04-2024 Patient referral [facility] Work Phone: Start: 07-23-2024 [facility] Start: 10-15-2023 [facility] 1999 panel - Serum or Plasma [facility] lic 1999 panel - Serum or Plasma [facility] Patient Education [facility] Work Phone: Patient referral [facility] Work Phone: Thyroid stimulating hormone measurement [facility] Immunizations Immunization Date Immunization Notes Care Provider Fa cili 08-24-2019 influenza, injectabl e, quadrivalent, preservative free Dr. Arun Gonzales DO Work Phone: [facility] 08-20-2019 pneumococcal polysaccharide vaccine, [address] Arun Gonzales DO Work Phone: [facility] Payers Date Payer Category Payer Self-pay [id number] 2024 Unknown [id number] 2013 Unknown [facility] [id number] 1990 Unknown [id number] 2.16.8 40.1.446983.3.579.2.627 Unknown [facility] [id number] Unknown [id number] 2.16.8 40.1.798115.3.579.2.462 Unknown [id number] 2.16.8 40.1.373900.3.579.2.462 Unknown [id number] 2.16.8 40.1.302214.3.579.2.462 Unknown [id number] 2.16.8 40.1.107161.3.579.2.462 Unknown [id number] 2.16.8 40.1.887607.3.579.2.462 Unknown [id number] 2.16.8 40.1.277377.3.579.2.462 Unknown [id number] 2.16.8 40.1.756908.3.579.2.462 Unknown [id number] 2.16.8 40.1.361706.3.579.2.462 Unknown [id number] 2.16.8 40.1.456950.3.579.2.462 Unknown [id number] 2.16.8 40.1.747701.3.579.2.462 Unknown [id number] 2.16.8 40.1.691207.3.579.2.462 Unknown [id number] 2.16.8 40.1.303696.3.579.2.462 Unknown [id number] 2.16.8 40.1.953568.3.579.2.462 Unknown [id number] 2.16.8 40.1.276459.3.579.2.462 Unknown [id number] 2.16.8 40.1.281641.3.579.2.462 Unknown [id number] 2.16.8 40.1.664534.3.579.2.462 Unknown [id number] 2.16.8 40.1.479607.3.579.2.462 Unknown [id number] 2.16.8 40.1.628617.3.579.2.462 Unknown [id number] 2.16.8 40.1.824216.3.579.2.462 Unknown [id number] 2.16.8 40.1.737662.3.579.2.462 Unknown [id number] 2.16.8 40.1.350433.3.579.2.462 Unknown [id number] 2.16.8 40.1.054003.3.579.2.462 Unknown [id number] 2.16.8 40.1.021199.3.579.2.462 Unknown [id number] 2.16.8 40.1.630414.3.579.2.462 Unknown [id number] 2.16.8 40.1.006664.3.579.2.462 Unknown [id number] 2.16.8 40.1.438174.3.579.2.462 Unknown [id number] 2.16.8 40.1.417364.3.579.2.462 Unknown [id number] 2.16.8 40.1.989026.3.579.2.462 Unknown [id number] 2.16.8 40.1.079161.3.579.2.462 Unknown [id number] 2.16.8 40.1.686882.3.579.2.462 Unknown [id number] 2.16.8 40.1.762450.3.579.2.462 Unknown [id number] 2.16.8 40.1.533102.3.579.2.462 Unknown [id number] 2.16.8 40.1.322813.3.579.2.462 Unknown [id number] 2.16.8 40.1.837720.3.579.2.462 Social History Date Type Detail Facility Start: 10-15-2023 Tobacco smoking stat us [facility] Unknown if ever smoked [facility] Start: 1990 Sex Assigned At Male [facility] Tobacco smoking status No Smokin g Status Entered [facility] Start: 07-23-2024 End: 01-10-2025 Tobacco smoking status NHIS Current Light tobacco smoker [facility] Start: 02-03-2024 Tobacco Use Tobacco Use [facility] Medical Equipment Procedure Code Equipment Code Equipment Original Text Equipment Identifier Dates Total cholecystectomy with exploration of common bile duct CLIP,HEMOLOCK MED WECK FDA Start: 02-17-2024 Total cholecystectomy with exploration of common bile duct Ligation clip, synthetic polymer, non-bioabsorbable [id number] FDA Start: 02-17-2024 Total cholecystectomy with exploration of common bile duct CLIP,HEMOLOCK MED WECK FDA Start: 02-17-2024 Total cholecystectomy with exploration of common bile duct CLIP,HEMOLOCK MED WECK FDA Start: 02-17-2024 Total cholecystectomy with exploration of common bile duct CLIP,HEMOLOCK MED WECK FDA Start: 02-17-2024 Total cholecystectomy with exploration of common bile duct CLIP,HEMOLOCK MED WECK FDA Start: 02-17-2024 Functional Status Date Assessment Result Facility 01-04-2024 Functional Status Independent [facility] 01-04-2024 Functional Status Standard Safet y ID band on, Allergy Band on, Call device within reach, Bed in low position, Wheels locked, Upper/Half-Length side-rails up, Safety level maintained [facility] Mental Status Date Assessment Result Facility 01-10-2025 Cognitive function Awake;Alert;A ppropriate;Follo ws Commands [facility] Work Phone: 01-04-2024 Mental Status Orientation Oriented x 4 [facility] 01-04-2024 Mental Status [facility] Clinical Notes 01-04-2024 to 01-10-2025 Note Date & Type Note Facility 01-10-2025 Radiology Diagnostic study note [facility] Imaging Services [address] [place] [address] Chest PA and Lateral MR#: [id number] Acct: [id number] Name: FRITZ MORSE Rep #: [id number] : 1990 M 34 From: Manuel Peña MD PCP: Dr. Arun Gonzales DO Status: RE G ER Study:Chest PA and Lateral Date of Exam: 01/10/25 Exam# [id number] Ordering Dr: Luis Angel Win DO PROCEDURE: CHEST PA AND LATERAL 01/10/2025 REASON FOR EXAM: PALPITATIONS TECHNIQUE: CHEST PA AND LATERAL COMPARISON: None. FINDINGS: Lungs/Pleura: Clear. Heart/Mediastinum: Normal in size. Bones/Soft tissues: Mild degenerative changes of the spine. RAD/Chest PA and Lateral IMPRESSION: No acute cardiopulmonary disease. Reading Location: [id number] CC: Dr. Arun Gonzales DO; Dr. 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 01-10-2025 Hospital Discharg e instructions Additional Instructions Your blood sugar was slightly elevated on lab results. Continue to monitor your blood sugars. Try to eat a low-carb, low sugar diet. Follow-up with your primary care physician in 5 to 7 days for further evaluation. [facility] Work Phone: 11-03-2024 Evaluation note Diagnosis Onset Date Resolution Hypersomnia acute November 03, 2024 11:24am Hypertension chronic November 03 11:24am Elevated LFTs acute November 10, 2 025 10:34am Gastritis acute November 10, 2024 10:34am Hypertension chronic November 24 10:54am [facility] Work Phone: 1(775) 735-588902-05-2025 Evaluation note* Diagnosis Onset Date Resolution Status Admit Date Bloody stool acute July 9:54am Elevated LFTs acute July 9:54am Rash acute August 04, 2024 9:54am Hypersomnia acute November 03, 2024 11:24am Hypertension chronic November 03 11:24am Elevated LFTs acute November 10, 025 10:34am [facility] Work Phone: 1(219) 480-687002-05-2025 Evaluation note* Diagnosis Onset Date Resolution Status Admit Date Bloody stool acute July 9:54am Elevated LFTs acute July 9:54am Rash acute August 04, 2024 9:54am Hypersomnia acute November 03, 2024 11:24am Hypertension chronic November 03 11:24am Elevated LFTs acute November 10, 025 10:34am Gastritis acute November 10, 2024 10:34am Hypertension chronic November 24 10:54am [facility] Work Phone: 1(115) 234-880402-05-2025 Evaluation note* Diagnosis Onset Date Resolution Status Admit Date Bloody stool acute July 9:54am Elevated LFTs acute July 9:54am Rash acute August 04, 2024 9:54am Hypersomnia acute November 03, 2024 11:24am Hypertension chronic November 03 11:24am Elevated LFTs acute November 10, 2 025 10:34am Gastritis acute November 10, 2024 10:34am [facility] Work Phone: 1(715) 609-302109-10-2024 [facility]08-20-2024 [facility]08-06-2024 [facility] 01-04-2024 Hospital Discharge instructions Patient Education 01/04/2024 02:07:03 Abdominal Pain Abdominal Pain Abdominal pain is pain in the stomach or belly area. Everyone has this pain from time to time. In many cases it goes away on its own. But abdominal pain can sometimes be due to a serious problem, such as appendicitis. So it s important to know when to get help. Causes of abdominal pain There are many possible causes of abdominal pain. Common causes in adults include: Constipation, diarrhea, or gas Stomach acid flowing back up into the esophagus (acid reflux or heartburn) Severe acid reflux, called GERD (gastroesophageal reflux disease) A sore in the lining of the stomach or small intestine (peptic ulcer) Inflammation of the gallbladder, liver, or pancreas Gallstones or kidney stones Appendicitis Intestinal blockage An internal organ pushing through a muscle or other tissue (hernia) Urinary tract infections In women, menstrual cramps, fibroids, ovarian cysts, pelvic inflammatory disease, or endometriosis Inflammation or infection of the intestines, including Crohn's disease and ulcerative colitis Irritable bowel syndrome Diagnosing the cause of abdominal pain Your healthcare provider will give you a physical exam help find the cause of your pain. If needed,you will have tests. Belly pain has many possible causes. So it can be hard to find the reason for your pain. Giving details about your pain can help. Tell your provider where and when you feel the pain, and what makes it better or worse. Also let your provider know if you have other symptoms such as: Fever Tiredness Upset stomach (nausea) Vomiting Changes in bathroom habits Blood in the stool or black, tarry stool Weight loss that you can't explain (involuntary weight loss?) Also report any family history of stomach or intestinal problems, or cancers. Tell your provider about all your alcohol use and drug use. Tell your provider about all medicines you use, including herbs, vitamins, and supplements. Treating abdominal pain Some causes of pain need emergency medical treatment right away. These include appendicitis or a bowel blockage. Other problems can be treated with rest, fluids, or medicines. Your healthcare provider can give you specific instructions for treatment or self-care based on what is causing your pain. If you have vomiting or diarrhea, sip water or other clear fluids. When you are ready to eat solid foods again, start with small amounts of mjnh-ok-hwmyxc, low- fat foods. These include apple sauce, toast, or crackers. When to get medical care Call 911 or go to the hospital right away if you: Can t pass stool and are vomiting Are vomiting blood or have bloody diarrhea or black, tarry diarrhea Have chest, neck, or shoulder pain Feel like you might pass out Have pain in your shoulder blades with nausea Have sudden, severe belly pain Have new, severe pain unlike any you have felt before Have a belly that is rigid, hard, and hurts to touch Call your healthcare provider if you have: Pain for more than 5 days Bloating for more than 2 days Diarrhea for more than 5 days A fever of 100.4 F (38 C) or higher, or as directed by your healthcare provider Pain that gets worse Weight loss for no reason Continued lack of appetite Blood in your stool How to prevent abdominal pain Here are some tips to help prevent abdominal pain: Eat smaller amounts of food at each meal. Don't eat greasy, fried, or other high-fat foods. Don't eat foods that give you gas. Exercise regularly. Drink plenty of fluids. To help prevent GERD symptoms: Quit smoking. Reduce alcohol and foods that increase stomach acid. Don't use aspirin or hqye-ter-ajmntes pain and fever medicines, if possible. This includes nonsteroidal anti-inflammatory drugs (NSAIDs). Lose excess weight. Finish eating at least 2 hours before you go to bed or lie down. Raise the head of your bed. [id number] [employer]. [address] [place] [address]. All rights reserved. This information is not intended as a substitute for professional medical care. Always follow yourhealthcare professional's instructions. Follow Up Care 01/04/2024 00:38:49 With:Follow up with primary care provider Address:Unknown When:2-4 days With:JANINE DEL VALLE MD Address: [address] [place] [address] [place] [address]- When:2-4 days With:POPEYE HERRERA MD Address: [address] [address] [phone] When:2-4 days [facility] 07-07-2024 Note Discharge Instructions Thank you for allowing [facility] to assist you with your healthcare needs. The following is importantdischarge information regarding your hospital visit. Diagnosis from Today's Visit Abdominal pain What to Do Next Instructions from Your Care Team You have mild elevation in your liver tests. This needs repeated and followed up by your family doctor. No qualifying data available. Post Acute Orders No qualifying data available. You Need to Schedule the Following Appointments Follow Up with Follow up with primary care provider When:Within 2-4 days Follow Up with JANINE DEL VALLE MD When:Within 2-4 days Where:[address] [facility] [place] [address]- Follow Up with POPEYE HERRERA MD When:Within 2-4 days Where:[address] [place] [address]- [phone] Allergies NKA Medications Please ask your primary doctor or pharmacist before taking any other medication not listed, including over the counter drugs, herbal medications, vitamins and or supplements as they may interact withyour home medications. Please take this list to your next doctor s visit. Bring all medications you take, including over the counter medications, herbals and other supplements with you to your doctor s visit. Patients and families are reminded to discard old lists and to update any records with all medication providers or retail pharmacies. Education Materials Abdominal Pain Abdominal pain is pain in the stomach or belly area. Everyone has this pain from time to time. In many cases it goes away on its own. But abdominal pain can sometimes be due to a serious problem, such as appendicitis. So it s important to know when to get help. Causes of abdominal pain There are many possible causes of abdominal pain. Common causes in adults include: Constipation, diarrhea, or gas Stomach acid flowing back up into the esophagus (acid reflux or heartburn) Severe acid reflux, called GERD (gastroesophageal reflux disease) A sore in the lining of the stomach or small intestine (peptic ulcer) Inflammation of the gallbladder, liver, or pancreas Gallstones or kidney stones Appendicitis Intestinal blockage An internal organ pushing through a muscle or other tissue (hernia) Urinary tract infections In women, menstrual cramps, fibroids, ovarian cysts, pelvic inflammatory disease, or endometriosis Inflammation or infection of the intestines, including Crohn's disease and ulcerative colitis Irritable bowel syndrome Diagnosing the cause of abdominal pain Your healthcare provider will give you a physical exam help find the cause of your pain. If needed,you will have tests. Belly pain has many possible causes. So it can be hard to find the reason for your pain. Giving details about your pain can help. Tell your provider where and when you feel the pain, and what makes it better or worse. Also let your provider know if you have other symptoms such as: Fever Tiredness Upset stomach (nausea) Vomiting Changes in bathroom habits Blood in the stool or black, tarry stool Weight loss that you can't explain (involuntary weight loss?) Also report any family history of stomach or intestinal problems, or cancers. Tell your provider about all your alcohol use and drug use. Tell your provider about all medicines you use, including herbs, vitamins, and supplements. Treating abdominal pain Some causes of pain need emergency medical treatment right away. These include appendicitis or a bowel blockage. Other problems can be treated with rest, fluids, or medicines. Your healthcare provider can give you specific instructions for treatment or self-care based on what is causing your pain. If you have vomiting or diarrhea, sip water or other clear fluids. When you are ready to eat solid foods again, start with small amounts of azfs-av-qoitcr, low- fat foods. These include apple sauce, toast, or crackers. When to get medical care Call 911 or go to the hospital right away if you: Can t pass stool and are vomiting Are vomiting blood or have bloody diarrhea or black, tarry diarrhea Have chest, neck, or shoulder pain Feel like you might pass out Have pain in your shoulder blades with nausea Have sudden, severe belly pain Have new, severe pain unlike any you have felt before Have a belly that is rigid, hard, and hurts to touch Call your healthcare provider if you have: Pain for more than 5 days Bloating for more than 2 days Diarrhea for more than 5 days A fever of 100.4 F (38 C) or higher, or as directed by your healthcare provider Pain that gets worse Weight loss for no reason Continued lack of appetite Blood in your stool How to prevent abdominal pain Here are some tips to help prevent abdominal pain: Eat smaller amounts of food at each meal. Don't eat greasy, fried, or other high-fat foods. Don't eat foods that give you gas. Exercise regularly. Drink plenty of fluids. To help prevent GERD symptoms: Quit smoking. Reduce alcohol and foods that increase stomach acid. Don't use aspirin or vnld-txx-nwsrpwi pain and fever medicines, if possible. This includes nonsteroidal anti-inflammatory drugs (NSAIDs). Lose excess weight. Finish eating at least 2 hours before you go to bed or lie down. Raise the head of your bed. 2429-8082 [employer]. [address] [place] [address], [place] [address]. All rights reserved. This information is not intended as a substitute for professional medical care. Always follow yourhealthcare professional's instructions. Additional Information VACCINATE! IT SAVES LIVES! Members of the community who have not yet received the COVID-19 vaccine and would like to receive it can visit one of [facility] vaccine clinics. There are many vaccine clinic locations within the [facility]. For locations and available times, please visit www.[email or web address].[email or web address]/. It is important to note that some COVID mobile vaccine clinics are held outdoors and may be canceled in rainy or stormy conditions. To learn more about pediatric vaccinations (ages 5-11), we invite you to visit the [facility] webpage. [email or web address]/[email or web address] [email or web address] learn more about the COVID-19 vaccine, we invite you to visit the CDC website for a list of frequently asked questions. https://www.cdc.gov/coronavirus/2019-ncov/vaccines/faq.html [facility] Patient Portal Access Instructions: Stay connected with your healthcare team and access your personal medical information anytime with the [facility] Patient Portal. If you would like a full copy of your medical records please contact the [facility] Medical Records Department Friday through Friday between 8a.m. and 4:30p.m. Please follow the directions below to access the portal: 1.Access the email account you provided upon registration to the [facility].2.Look for an invitation email from [facility].3.Open the email and access the invitation link: Accept Invitation to [facility].Fill in the required ladd to create your account. Sign into www.[facility] with your username and password that you created in the above steps to stay up to date. You can then view a summary of results, a summary of your visits, and the ability to download your summaries to your computer or send the information securely to a physician. Remember that your healthcare information is confidential, so carefully consider who you will allow to register on the [facility] Patient Portal for access to your information. You can also access the [facility] Patient Portal on the [email or web address]. Simply click on Health Records under [employer] and then click on the [facility] logo. HOW TO SAFELY DISPOSE OF PRESCRIPTION MEDICATIONS Please use one of the following methods to safely dispose of your unused medications. 1.Use a drug disposal kit: the drug disposal pouch allows you to safely discard your old and unuseddrugs. Ask your nurse to give you one when you are discharged.2.Visit a local take-back location: Many local pharmacies and police departments have programs that collect old and unwanted prescriptiondrugs. Call your local pharmacy or go to http://[employer]/9K8Cy3z to find one close to you.3.Make use of household items: Use cat litter or old coffee grounds to dispose medications if other options arenot available. Mix your drugs with these household products, seal them in an airtight container andthrow it into the garbage. Call [facility]: [phone] to be sure your drugs can be disposed of in this way. Some medicines may require a different approach.4.Never flush your medications down the toilet. IF YOU HAVE BEEN PRESCRIBED AN OPIOIDS FOR PAIN If you have been prescribed an opioid (such as hydrocodone, oxycodone or morphine), it is critical to understand the possible side effects and risks of opioid pain medications. Even when taken as directed, opioids can have several side effects including: Tolerance, meaning you might need to take more of a medication for the same pain relief. Nausea, vomiting and/or constipation. Sleepiness, dizziness, dry mouth, confusion, depression or itching. Physical dependence, meaning you have withdrawal symptoms when a medication is stopped ? this can develop within a few days. KNOW YOUR RESPONSIBILITIES It is important to know exactly how much and how often to take the opioid pain medications you are prescribed. Never take opioids in higher amounts or more often than prescribed. Do not combine opioids with alcohol or other drugs that cause drowsiness, such as benzodiazepines, also known as benzos,including diazepam and alprazolam, muscle relaxants or sleep aids. Never sell or share prescriptionopioids. This is illegal. Store opioids in a secure place and out of reach of others (including children, family, friends and visitors). The last page(s) of this document has been signed and retained as a CHART COPY Signatures Patient Education Materials Abdominal Pain Medication Leaflets My discharge plan and instructions have been reviewed and explained to me and I,MINI, TY understand my current condition and have read and understand these discharge instructions. I have received a written copy of the plan/instructions. If I have questions, I am aware that I should contact my doctor. 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 Multiplanar reformatted images are provided for review. Automated exposure control, iterative reconstruction, and/or weight based adjustment of the mA/kV was utilized to reduce the radiation dose to as low as reasonably achievable. COMPARISON: None. HISTORY: ORDERING SYSTEM PROVIDED HISTORY: Reason for Exam: abdominal pain FINDINGS: Lower Chest: No acute findings. Organs: The liver is normal in size. There is no hepatic lesion. Gallbladder is normal in size. Calcified gallstone is present at the neck of the gallbladder. There is no gallbladder wall thickening. Bile ducts are not dilated. The pancreas, spleen, and the adrenal glands are normal. The right kidney is normal in size and appearance. There is tiny residual soft tissue at the left renal fossa consistent with a severely atrophic or hypoplastic left kidney. No urinary tract stone or obstruction is present on either side. GI/Bowel: There is no intestinal obstruction or inflammation. The appendix is normal. No free intraperitoneal air or abnormal fluid collection is present in the abdomen. Pelvis: The urinary bladder is partly distended and contains no stones. Prostate is not enlarged. There is no abnormal fluid collection in the pelvis. Peritoneum/Retroperitoneum: There is no retroperitoneal lymph node enlargement. Abdominal aorta and inferior vena cava are normal. Bones/Soft Tissues: Mild anterior compression of T11 vertebral body appears chronic but is of indeterminate age. Small umbilical hernia contains only fat with no sign of complication. IMPRESSION: 1. Cholelithiasis without CT evidence of acute cholecystitis. 2. Severely atrophic or hypoplastic left kidney. 3. Mild anterior compression of T11 vertebral body appears chronic but is of indeterminate age. 4. Small umbilical hernia contains only fat with no sign of complication. Interpreted by: Ari Moreno MD Preliminary Report By: Ari Moreno MD Electronically signed By Ari Moreno MD Dictated Date: 01/04/2024 1:47:34 AM Prelim Date: 01/04/2024 1:52:07 AM Sign Date: 01/04/2024 1:52:07 AM Ordering Provider[facility] No data available for this section [facility] Evaluation noteNo assessment information available [facility] Work Phone: Reason for referral (narrative)No reason for referral information availableWFisher-Titus [facility] Work Phone: Chief Complaint and Reason for Visit Chief Complaint ABD PAIN Chief Complaint Admit Date GI BLEED July 23, 2024 4 :48pm 3 M FU August 04, 2024 9 :54am INT LABS August 04, 2024 1 0:45am HR and BP high portal request November 03 025 11:24am 3 M FU November 10, 2024 10:34 am Reason for Visit Admit Date Bloody stool August 04, 2024 9 :54am Elevated LFTs August 04, 2024 9 :54am Rash August 04, 2024 9 :54am Hypersomnia November 03, 2024 11:24a m Hypertension November 03, 2024 11:24a m Elevated LFTs November 10, 2024 10:34 am Chief Complaint Admit Date 3 M FU August 04, 2024 9 :54am INT LABS August 04, 2024 1 0:45am HR and BP high portal request November 03 2 025 11:24am 3 M FU November 10, 2024 10:34 am 2 week f/u November 24, 2024 10:54 am Reason for Visit Admit Date Bloody stool August 04, 2024 9 :54am Elevated LFTs August 04, 2024 9 :54am Rash August 04, 2024 9 :54am Hypersomnia November 03, 2024 11:24a m Hypertension November 03, 2024 11:24a m Elevated LFTs November 10, 2024 10:34 am Gastritis November 10, 2024 10:34 am Hypertension November 24, 2024 10:54 am Reason for Visit Admit Date Bloody stool August 04, 2024 9 :54am Elevated LFTs August 04, 2024 9 :54am Rash August 04, 2024 9 :54am Hypersomnia November 03, 2024 11:24a m Hypertension November 03, 2024 11:24a m Elevated LFTs November 10, 2024 10:34 am Gastritis November 10, 2024 10:34 am Chief Complaint Admit Date 3 M FU August 04, 2024 9 :54am INT LABS August 04, 2024 1 0:45am HR and BP high portal request November 03, 025 11:24am 3 M FU November 10, 2024 10:34 am 2 week f/u November 24, 2024 10:54 am fatigue and HTN November 24, 2024 7:53p m Chief Complaint Admit Date HR and BP high portal request November 03, 025 11:24am 3 M FU November 10, 2024 10:34 am 2 week f/u November 24, 2024 10:54 am fatigue and HTN November 24, 2024 7:53p m Palpitations January 10, 2025 2:48 pm Reason for Visit Admit Date Hypersomnia November 03, 2024 11:24a m Hypertension November 03, 2024 11:24a m Elevated LFTs November 10, 2024 10:34 am Gastritis November 10, 2024 10:34 am Hypertension November 24, 2024 10:54 am Advance Directives Advance Directive Response Recorded Date/ Time Living Will No October 15, 2023 8:08pm Power of Business Sales Consultant No October 14 8:08pm Advance Directive Response Recorded Date/ Time Living Will No March 04 11:14am Do you have a Healthcare Power of Business Sales Consultant? No March 04, 2024 11:14am Living Will No July 23 6:34pm Do you have a Healthcare Power of Business Sales Consultant? No July 23, 2024 6:34pm Advance Directive Response Recorded Date/ Time Living Will No March 04 11:14am Do you have a Healthcare Power of Business Sales Consultant? No March 04, 2024 11:14am Advance Directive Response Recorded Date/ Time Do you have a Healthcare Power of Business Sales Consultant? No January 10, 2025 3:49pm Summary Purpose Family History No Family History Records Found Additional Source Comments Care Teams (unrecognized sec tion and content) Team Status: Active Member Role Status Dates No Primary Care Physician Family Provider Active No Primary Care Physician Primary Care Provider Active Team Status: Inactive Member Role Status Dates No Primary Care Physician Primary Care Provider Active Dr. Neetu Espinoza , DO Emergency Provider Active Team Status: Active Member Role Status Dates Dr. Arun Gonzales DO Primary Care Provider Active Team Status: Inactive Member Role Status Dates Dr. Arun Gonzales DO Primary Care Provider Active Start: July 23, 2024 End: July 23, 2024 Dr. Gm Maddox DO Attending Provider Active Start: July 23, 2024 End: July 23, 2024 Dr. Gm Maddox , Emergency Provider Active Start: July 23, 2024 End: July 23, 2024 Team Status: Inactive Member Role Status Dates MELIZA العراقي Attending Provider Active Start: August 04, 2024 End: August 04, 2024 Dr. Arun Gonzales DO Primary Care Provider Active Start: August 04, 2024 End: August 04, 2024 Dr. Arun Gonzales DO Referring Provider Active Start: August 04, 2024 End: August 04, 2024 Team Status: Inactive Member Role Status Dates Dr. Arun Gonzales DO Primary Care Provider Active Start: August 04, 2024 End: August 04, 2024 MELIZA العراقي Attending Provider Active Start: August 04, 2024 End: August 04, 2024 MELIZA العراقي Referring Provider Active Start: August 04, 2024 End: August 04, 2024 Team Status: Inactive Member Role Status Dates Dr. Arun Gonzales DO Primary Care Provider Active Start: November 03, 2024 End: November 03, 2024 Dr. Arun Gonzales DO Referring Provider Active Start: November 03, 2024 End: November 03, 2024 MELIZA Zaman Attending Provider Active St art: November 03, 2024 End: November 03, 2024 Team Status: Inactive Member Role Status Dates Dr. Arun Gonzales , Primary Care Provider Active Start: November 10, 2024 End: November 10, 2024 Dr. Arun Gonzales , DO Referring Provider Active Start: November 10, 2024 End: November 10, 2024 MELIZA العراقي Attending Provider Active Start: November 10, 2024 End: November 10, 2024 Team Status: Inactive Member Role Status Dates Dr. Arun Gonzales , Primary Care Provider Active Start: November 10, 2024 End: November 10, 2024 MELIZA العراقي Attending Provider Active Start: November 10, 2024 End: November 10, 2024 MELIAZ العراقي Referring Provider Active Start: November 10, 2024 End: November 10, 2024 Team Status: Inactive Member Role Status Dates MELIZA Zaman Attending Provider Active St art: November 24, 2024 End: November 24, 2024 Dr. Arun Gonzales , Primary Care Provider Active Start: November 24, 2024 End: November 24, 2024 Dr. Arun Gonzales , Referring Provider Active Start: November 24, 2024 End: November 24, 2024 Team Status: Inactive Member Role Status Dates Dr. Arun Gonzales DO Primary Care Provider Active Start: November 24, 2024 End: November 24, 2024 MELIZA Zaman Attending Provider Active St art: November 24, 2024 End: November 24, 2024 MELIZA Zaman Referring Provider Active St art: November 24, 2024 End: November 24, 2024 Team Status: Active Member Role/Relationship Status Dates Dr. Arun Gonzales DO Primary Care Provider Active Team Status: Inactive Member Role/Relationship Status Dates Dr. Arun Gonzales , Primary Care Provider Active Start: November 03, 2024 End: November 03, 2024 Dr. Arun Gonzales , DO Referring Provider Active Start: November 03, 2024 End: November 03, 2024 MELIZA Zaman Attending Provider Active St art: November 03, 2024 End: November 03, 2024 Team Status: Inactive Member Role/Relationship Status Dates Dr. Arun Gonzales DO Primary Care Provider Active Start: November 10, 2024 End: November 10, 2024 Dr. Arun Gonzales DO Referring Provider Active Start: November 10, 2024 End: November 10, 2024 MELIZA العراقي Attending Provider Active Start: November 10, 2024 End: November 10, 2024 Team Status: Inactive Member Role/Relationship Status Dates Dr. Arun Gonzales DO Primary Care Provider Active Start: November 10, 2024 End: November 10, 2024 MELIZA العراقي Attending Provider Active Start: November 10, 2024 End: November 10, 2024 MELIZA العراقي Referring Provider Active Start: November 10, 2024 End: November 10, 2024 Team Status: Inactive Member Role/Relationship Status Dates MELIZA Zaman Attending Provider Active St art: November 24, 2024 End: November 24, 2024 Dr. Arun Gonzales DO Primary Care Provider Active Start: November 24, 2024 End: November 24, 2024 Dr. Arun Gonzales DO Referring Provider Active Start: November 24, 2024 End: November 24, 2024 Team Status: Inactive Member Role/Relationship Status Dates Dr. Arun Gonzales DO Primary Care Provider Active Start: November 24, 2024 End: November 24, 2024 MELIZA Zaman Attending Provider Active St art: November 24, 2024 End: November 24, 2024 MELIZA Zaman Referring Provider Active St art: November 24, 2024 End: November 24, 2024 Team Status: Inactive Member Role/Relationship Status Dates Dr. Arun Gonzales DO Primary Care Provider Active Start: January 10, 2025 End: January 10, 2025 Dr. Luis Angel Win , Emergency Provider Active Start: January 10, 2025 End: January 10, 2025 Goals (unrecognized section and content) Goals may be documented in a n alternate section No data available for this sectionGoals may be documented in an alternate sectionGoals may be documented in an alternate sectionGoals may be documented in an alternate sectionGoals may be documented in an alternate sectionGoals may be documented in an alternate section (unrecognized sect ion and content) No Status Records FoundNo Status Records Found INFORMATION SOURCE (unrecogn ized section and content) DATE CREATED AUTHOR [facility] DATE CREATED AUTHOR AUTHOR'S HÉCTOR MATEUSBARBARA 11/30/2024 [facility] FOR RECORDS PERTAINING TO PATIENTS WHO ARE OR HAVE BEEN ENROLLED IN A CHEMICAL DEPENDENCY/SUBSTANCEABUSE PROGRAM, SOME INFORMATION MAY BE OMITTED. This clinical summary was aggregated from multiple sources. Caution should be exercised in using it in the provision of clinical care. This summary normalizes information from multiple sources, and as a consequence, information in this document may materially change the coding, format and clinical context of patient data. In addition, data may be omitted in some cases. CLINICAL DECISIONS SHOULD BE BASED ON THE PRIMARY CLINICAL RECORDS. [facility]. provides no warranty or guarantee of the accuracy or completeness of information in this document.
== END 2025-01-10 19:56 | disposition home or self-care (01) ==
PROVIDERS: Emergency Provider Emergency Medicine; PCP Family Medicine; Visit Provider Emergency Medicine
DX: R00.2 Palpitations (principal); R73.9 Hyperglycemia, unspecified; R00.0 Tachycardia, unspecified; I10 Essential (primary) hypertension; M54.2 Cervicalgia
CPT/HCPCS: 71046; 80048; 81001; 82803; 84484; 85025; 85379; 93005; 96360; 99284; A4216

== ENCOUNTER → 2025-01-31 | Outpatient (CLI) | payer BC, SELFPAY ==
[2025-01-31 09:28] LABS: PTHIN 33 pg/mL (11-61)
[2025-02-01 15:39] LABS: T4 Total, Thyroxin 8.8 ug/dL (4.5-12.1)
== END | disposition home or self-care (01) ==
LOC: LAB 08:40
PROVIDERS: PCP Family Medicine; Referring Provider Physician Assistant; Visit Provider Physician Assistant
DX: R00.2 Palpitations (principal); E83.52 Hypercalcemia; R73.09 Other abnormal glucose; R63.1 Polydipsia; E25.0 Congenital adrenogenital disorders associated with enzyme deficiency; E03.9 Hypothyroidism, unspecified
CPT/HCPCS: 36415; 82024; 83970; 84436; 84439; 84443; 86376

== ENCOUNTER → 2025-02-01 | Outpatient (CLI) | payer BC, SELFPAY ==
--- OUTSIDE RECORDS SUMMARY | 2025-02-01 19:20 | XMS RPT_ITS | CCD ---
Author Organization [facility] Care Team Providers Care Photoengraver Name Role Phone PHYSICIAN, NOT RECORDED Primary Care Physician U monse VILLASENOR MD, JENNIFFER Hanley Attending Unavail able PHYSICIAN, NOT RECORDED Primary Care Unavaila ble Christian HUNTER, Dr. Arun Bunch Primary Care Provider [phone] Dr. Gm Maddox DO Attending Provider Dr. Gm Maddox DO Emergency Provider Hina Webb Attending Provider Dr. Arun Gonzales DO Referring Provider Hina Webb Referring Provider Danny Dumas Attending Provider Dr. Arun Gonzales DO Primary Care Provider [phone] Danny Dumas Referring Provider Dr. Arun Gonzales DO Primary Care Provider Dr. Arun Gonzales DO Referring Provider Hina Webb Attending Provider Hina Webb Referring Provider Dr. Luis Angel Win DO Emergency Provider Dr. Luis Angel Win DO Attending Provider Friend, Rodrigo Attending Unavailable Arun Gonzales Primary Care Unavailable Arun Gonzales Referring Unavailable Friend, Rodrigo Referring Unavailable Friend, Rodrigo Attending Unavailable Arun Gonzales Primary Care Unavailable Hina Sampson Attending Unavailable Hina Sampson Referring Unavailable Brown, Arun R Primary Care Unavailable Hina Sampson Attending Unavailable Brown, Arun R Referring Unavailable Brown, Arun R Primary Care Unavailable Brown, Arun R Attending Unavailable Brown, Arun R Referring Unavailable Brown, Arun R Primary Care Unavailable Darrin Murphy Attending Unavailable Miryam Ohara Attending Unavailable Gm Maddox Attending Unavailable Brown, Arun R Primary Care Unavailable Wayt, Danny Referring Unavailable Wayt, Danny Attending Unavailable Brown, Arun R Primary Care Unavailable Wayt, Danny Referring Unavailable Wayt, Danny Attending Unavailable Brown, Arun R Primary Care Unavailable Wayt, Danny Referring Unavailable Wayt, Danny Attending Unavailable Brown, Arun R Primary Care [...] Unavailable Brown, Arun R Primary Care Unavailable Luis Angel Win Attending Unavailable Brown, Arun R Primary Care [...] Primary Care Unavailable Hina Sampson Consulting Unavailable Rodrigo García Attending Unavailable Brown, Arun R Primary Care Unavailable Raquel, Rodrigo Referring Unavailable Sumeet Bearden Attending Unavailable Sumeet Bearden Admitting Unavailable Sari Haywood Referring Unavailable Brown, Arun R Primary Care Unavailable Hina Sampson Consulting Unavailable FriendRodrigo Referring Unavailable FriendRodrigo Attending Unavailable Brown, Arun R Primary Care Unavailable Friend, Rodrigo Consulting Unavailable Danny Walter Attending Unavailable Wayt, Danny Referring Unavailable Brown, Arun R Primary Care Unavailable Hina Sampson Consulting Unavailable Hina Sampson Referring Unavailable Gabby Escobar Attending Unavailable Brown, Arun R Primary Care Unavailable Friend, Rodrigo Attending Unavailable Friend, Rodrigo Consulting Unavailable Brown, Arun R Primary Care Unavailable Brown, Arun R Referring Unavailable Sumeet Bearden Consulting Unavailable Sari Haywood Referring Unavailable Sari Haywood Attending Unavailable Sumeet Bearden Admitting Unavailable Brown, Arun R Primary Care Unavailable Sumeet Bearden Attending Unavailable Brown, Arun R Primary Care Unavailable Sari Haywood Attending Unavailable Brown, Arun R Primary Care Unavailable Brown, Arun R Referring Unavailable Brown, Arun R Referring Unavailable Danny Walter Attending Unavailable Brown, Arun R Primary Care Unavailable Hina Sampson Attending Unavailable Brown, Arun R Referring Unavailable Brown, Arun R Primary Care Unavailable Danny Walter Attending Unavailable Brown, Arun R Referring Unavailable Brown, Arun R Primary Care Unavailable Danny Walter Attending Unavailable Brown, Arun R Referring Unavailable Brown, Arun R Primary Care Unavailable Brown, Arun R Referring Unavailable Hina Sampson Attending Unavailable Brown, Arun R Primary Care Unavailable Medications Current Medications Medication Drug Class(es) Dates Sig (Normalized) Sig (Original) dicyclomine hydrochloride 10 mg oral capsule (12 sources) Anticholinergic Start: 01-30-2024 End: 02-02-2024 take 1 capsule by mouth twice daily as needed for pain Dicyclomine 10 mg capsule Active 10 mg PO TWICE DAILY NEEDED as needed for abdominal pain February 02, 2024 12:00am [place] (Nk) (1 source) Start: 07-14-2019 [place] (Nk) Active July 14, 2019 1:00am valsartan 80 mg oral tablet (8 sources) Angiotensin 2 Receptor Lisseth Start: 11-03-2024 End: 12-07-2024 take 1 tablet by mouth once daily Valsartan 80 mg tablet Active 80 mg PO daily 90 1 December 07, 2024 1:32pm Completed/Discontinued Medications Medication Drug Class(es) Dates Sig (Normalized) Sig (Original) acetaminophen 325 mg oral tablet (6 sources) Start: 02-18-2024 End: 11-03-2024 Acetaminophen 325 mg Tablet Discontinued 650 mg PO EVERY 6 HOURS NEEDED as needed for Pain 1-10 Or Fever >100.7 0 0 February 18, 2024 12:00am November 03, 2024 11:36am diclofenac sodium 0.03 mg/mg topical gel (6 sources) Nonsteroidal Anti-inflammatory Drug Start: 06-09-2024 End: 11-03-2024 Diclofenac Sodium 3 % gel Discontinued 1 NMA TOPICAL TWICE A DAY 100 1 June 09, 2024 1:00am November 03, 2024 11:36am lansoprazole 30 mg delayed release oral capsule (13 sources) Proton Pump Inhibitor Start: 02-02-2024 End: [...] 11:23am oxyCODONE hydrochloride 5 mg oral tablet (6 sources) Opioid Agonist Start: 02-18-2024 End: 03-02-2024 take 1 tablet by mouth every six hours as needed for pain Oxycodone 5 mg Tablet Discontinued 5 mg PO EVERY 6 HOURS NEEDED as needed for Pain Score 4-10 10 3 0 February 18, 2024 March 02, 2024 9:19am Acute cholecystitis Acute cholecystitis pantoprazole 40 mg delayed release oral tablet (20 sources) Proton Pump Inhibitor Start: 01-06-2024 End: 12-07-2024 take 1 tablet by mouth once daily Pantoprazole 40 mg tablet,delayed release (DR/EC) Discontinued 40 mg PO DAILY 60 0 September 09, 2024 7:59am December 07, 2024 7:50am reflux sucralfate 1000 mg oral tablet (12 sources) Aluminum Complex Start: 03-04-2024 End: 07-23-2024 [...] Classification Problem Date Documented Da te Episodic/Chronic Cardiac dysrhythmias (6 sources) Palpitations; Translations: [Palpitations] Onset: 01-15-2025 01-10-2025 Episodic Chronic kidney disease (1 source) Chronic kidney disease, stage 2 (mild); Translations: [Chronic kidney disease, stage 2 (mild)] Onset: 05-20-2024 Chronic Diabetes mellitus without complication (3 sources) Hyperglycemia; Translations: [Hyperglycemia, unspecified] Onset: 01-18-2025 01-10-2025 Episodic Essential hypertension (16 sources) Hypertensive disorder; Translations: [Essential (primary) hypertension] 11-03-2024 Chronic Gastritis and duodenitis (10 sources) Gastritis; Translations: [Gastritis, unspecified, without bleeding] 11-10-2024 Episodic Other connective tissue disease (6 sources) Prepatellar bursitis; Translations: [Prepatellar bursitis, unspecified knee] 06-09-2024 Episodic Other endocrine disorders (6 sources) Congenital adrenal hyperplasia; Translations: [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] 01-06-2024 Chronic Other gastrointestinal disorders (1 source) Irritable bowel syndrome without diarrhea; Translations: [Irritable bowel syndrome without diarrhea] Onset: 02-20-2024 Chronic Other gastrointestinal disorders (6 sources) Ulceration of small intestine; Translations: [Ulcer of intestine] 03-15-2024 Episodic Other gastrointestinal disorders (6 sources) Constipation; Translations: [Constipation, unspecified] 07-31-2024 Episodic Other liver diseases (6 sources) Steatosis of liver; Translations: [Fatty (change [...] Onset: 06-29-2024 01-06-2024 Episodic Other skin disorders (10 sources) Eruption; Translations: [Rash and other nonspecific skin eruption] 08-04-2024 Episodic Residual codes; unclassified (12 sources) Hypersomnia; Translations: [Hypersomnia, unspecified] 11-03-2024 Chronic Residual codes; unclassified (1 source) Hypersomnia, unspecified; Translations: [Hypersomnia, unspecified] Onset: 11-29-2024 Chronic Superficial injury; contusion (14 sources) Contusion of right hand; Translations: [Contusion of right hand, initial encounter] 07-19-2019 Episodic Unclassified (8 sources) Rash; Translations: [R21 - Rash and other nonspecific skin eruption] Unclassified (1 source) Elevation of levels of liver transaminase levels; Translations: [Elevation of levels of liver transaminase levels] Onset: 06-29-2024 Past or Other Problems Problem Classification Problem Date Documented Da te Episodic/Chronic Abdominal pain (17 sources) Abdominal pain; Translations: [Unspecified abdominal pain] Onset: 01-04-2024 10-15-2023 Episodic Biliary tract disease (7 sources) Acute cholecystitis; Translations: [Acute cholecystitis] Onset: 03-08-2024 02-23-2024 Episodic Gastrointestinal hemorrhage (18 sources) Hematochezia; Translations: [Melena] Onset: 03-29-2024 01-06-2024 Episodic Nausea and vomiting (7 sources) Nausea; Translations: [Nausea] Onset: 02-17-2024 01-30-2024 Episodic Other connective tissue disease (1 source) Prepatellar bursitis, unspecified knee; Translations: [Prepatellar bursitis, unspecified knee] Onset: 07-13-2024 Episodic Other gastrointestinal disorders (1 source) Ulcer of intestine; Translations: [Ulcer of intestine] Onset: 05-06-2024 Episodic Other skin disorders (1 source) Rash and other nonspecific skin eruption; Translations: [Rash and other nonspecific skin eruption] Onset: 08-04-2024 Episodic Results Test Name Value Interpretation Reference Range Facility Adrenocorticotropic Hormoneo n 02-01-2025 ACTH 40.2 pg/mL Normal 7.2-63.3 [facility] Comment on above: Order Comment: N Result Comment: ACTH reference interval for samples collected between 7 and10 AM.Performed at: [facility] [place], [place] [id number] Director: Popeye Joseph PhD, Phone: [phone] Performed By: #### L 501.9520, L3300.1000, L509.1000 ####[facility] [address] [place], [place], [address] PTHINon 01-31-2025 PTH 33 pg/mL Normal 11-61 [facility] Comment on above: Performed By: #### L 501.9520, L3300.1000, L509.1000 ####[facility] [address] [place], [place], [id number] Thyroid Stim Hormone (TSH)on 01-31-2025 TSH 6.860 uIU/mL High 0.300-4.20 0 [facility] Comment on above: Performed By: #### L 501.9520, L3300.1000, L509.1000 ####[facility] [address] [place], [place], [address] Internal Medicine Office Vis iton 01-18-2025 Internal Medicine Office Visit Normal [facility] 12 Lead EKGon 01-10-2025 12 Lead EKG Normal [facility] Absolute lymphocyte countOrd ered By: Luis Angel Win on 01-10-2025 Lymphocytes Auto (Unsp spec) [#/Vol] 1.24 10*3/uL 0.83-4.51 [facility] Absolute neutrophil countOrd ered By: Luis Angel Win on 01-10-2025 Neutrophils (Bld) [#/Vol] 4.7 10*3/uL 2.0-7.7 [facility] Amorphous sediment detection in urine sediment by light microscopyOrdered By: Luis Angel Win on 01-10-2025 Amorphous sediment LM Ql (Urine sed) 1+ [facility] Anion gap in Serum or Plasma Ordered By: Luis Angel Win on 01-10-2025 Anion gap [Moles/Vol] 16 mmol/L High 5-15 [facility] Automated lymphocyte count a s percentage of total leukocytesOrdered By: Luis Angel Win on 01-10-2025 Lymphocytes/100 WBC Auto (Unsp spec) 19.0 % 19-41 [facility] BUN/creatinine ratioOrdered By: Luis Angel Win on 01-10-2025 Urea nitrogen/Creatinine [Mass ratio] 9.4 mg/mg Low 10-20 [facility] Basic Metabolic Profile (BMP )on 01-10-2025 BUN/CRE 9.4 RATIO Low 10-20 [facility] Comment on above: Performed By: #### L 300.8000, L100.0100, L500.2500 ####[facility] [address] [place], [address] Calcium [Mass/Vol] 10.0 mg/dL Normal 7.6-11.0 [facility] Comment on above: Performed By: #### L 300.8000, L100.0100, L500.2500 ####[facility] [address] [place], [address] Chloride [Moles/Vol] 102 mmol/L Normal 98-[address] [facility] Comment on above: Performed By: #### L 300.8000, L100.0100, L500.2500 ####[facility] [address] [place], [address] CO2 [Moles/Vol] 18.2 mmol/L Low 21.0-32.0 [facility] Comment on above: Performed By: #### L 300.8000, L100.0100, L500.2500 ####[facility] [address] [place], [address] Creatinine [Mass/Vol] 1.21 mg/dL High 0.70-1.20 [facility] Comment on above: Performed By: #### L 300.8000, L100.0100, L500.2500 ####[facility] [address] [place], [address] ECRCL 114.74 ml/min Normal 50-250 [facility] Comment on above: Performed By: #### L 300.8000, L100.0100, L500.2500 ####[facility] [address] [place], [address] GAP 16 High 5-15 [facility] Comment on above: Performed By: #### L 300.8000, L100.0100, L500.2500 ####[facility] [address] [place], [address] GFR/1.73 sq M.predicted among non-blacks MDRD (S/P/Bld) [Vol rate/Area] 82 mL/min/{1.73_m2} Normal >60 [facility] Comment on above: Result Comment: mL/m in/1.73m2 CKD-EPI Creatinine Equation (2020) Performed By: #### L 300.8000, L100.0100, L500.2500 ####[facility] [address] [place], [address] Glucose [Mass/Vol] 202 mg/dL High 70-99 [facility] Comment on above: Performed By: #### L 300.8000, L100.0100, L500.2500 ####[facility] [address] [place], [address] Potassium [Moles/Vol] 4.1 mmol/L Normal 3.3-5.1 [facility] Comment on above: Result Comment: Hemo lysis present, Results??could be affected.?? Performed By: #### L 300.8000, L100.0100, L500.2500 ####[facility] [address] [place], [address] Sodium [Moles/Vol] 137 mmol/L Normal 133-145 [facility] Comment on above: Performed By: #### L 300.8000, L100.0100, L500.2500 ####[facility] [address] [place], [address] Urea nitrogen [Mass/Vol] 11 mg/dL Normal 4-19 [facility] Comment on above: Performed By: #### L 300.8000, L100.0100, L500.2500 ####[facility] [address] [place], [address] Basophil percentageOrdered B y: Luis Angel Win on 01-10-2025 Basophils/100 WBC (Bld) 0.5 % 0-1 [facility] Bilirubin Test strip Ql (U)O rdered By: Luis Angel Win on 01-10-2025 Bilirubin Ql (U) Negative Negative [facility] CBC W/Diff, Automatedon 12-28 Absolute Lymph 1.24 X10 3/uL Normal 0.83-4.51 [facility] Comment on above: Performed By: #### L 300.8000, L100.0100, L500.2500 ####[facility] [address] [place], [address] Absolute Neut 4.7 X10 3/uL Normal 2.0-7.7 [facility] Comment on above: Performed By: #### L 300.8000, L100.0100, L500.2500 ####[facility] [address] [place], [address] Basophils/100 WBC (Bld) 0.5 % Normal 0-1 [facility] Comment on above: Performed By: #### L 300.8000, L100.0100, L500.2500 ####[facility] [address] [place], [address] Eosinophils/100 WBC (Bld) 3.1 % Normal 0-5 [facility] Comment on above: Performed By: #### L 300.8000, L100.0100, L500.2500 ####[facility] [address] [place], [address] Erythrocyte distribution width (RBC) [Ratio] 11.9 % Normal 11.6-14.6 [facility] Comment on above: Performed By: #### L 300.8000, L100.0100, L500.2500 ####[facility] [address] [place], [address] Hematocrit (Bld) [Volume fraction] 45.4 % Normal 40-54 [facility] Comment on above: Performed By: #### L 300.8000, L100.0100, L500.2500 ####[facility] [address] [place], [address] Hemoglobin (Bld) [Mass/Vol] 16.0 g/dL Normal 13.0-16.5 [facility] Comment on above: Performed By: #### L 300.8000, L100.0100, L500.2500 ####[facility] [address] [place], [address] IG% 0.200 Normal 0.0-0.9 [facility] Comment on above: Result Comment: IG% - Immature Granulocytes (promyelocytes, myelocytes andmetamyelocytes) > 1% indicates that a LEFT SHIFT is Present. Performed By: #### L 300.8000, L100.0100, L500.2500 ####[facility] [address] [place], [address] Lymphocytes/100 WBC (Bld) 19.0 % Normal 19-41 [facility] Comment on above: Performed By: #### L 300.8000, L100.0100, L500.2500 ####[facility] [address] [place], [address] MCH (RBC) [Entitic mass] 30.6 pg Normal 27.0-32.0 [facility] Comment on above: Performed By: #### L 300.8000, L100.0100, L500.2500 ####[facility] [address] [place], [address] MCHC (RBC) [Mass/Vol] 35.2 g/dL Normal 32-36 [facility] Comment on above: Performed By: #### L 300.8000, L100.0100, L500.2500 ####[facility] [address] [place], [address] MCV (RBC) [Entitic vol] 86.8 fL Normal 80-94 [facility] Comment on above: Performed By: #### L 300.8000, L100.0100, L500.2500 ####[facility] [address] [place], [address] Monocytes/100 WBC (Bld) 5.2 % Normal 0-10 [facility] Comment on above: Performed By: #### L 300.8000, L100.0100, L500.2500 ####[facility] [address] [place], [address] Neutrophils/100 WBC (Bld) 72.0 % High 47-70 [facility] Comment on above: Performed By: #### L 300.8000, L100.0100, L500.2500 ####[facility] [address] [place], [address] Nucleated RBC (Bld) [#/Vol] 0 10*3/uL Normal 0-5 [facility] Comment on above: Performed By: #### L 300.8000, L100.0100, L500.2500 ####[facility] [address] [place], [address] Platelet mean volume (Bld) [Entitic vol] 9.8 fL Normal 6.2-12.0 [facility] Comment on above: Performed By: #### L 300.8000, L100.0100, L500.2500 ####[facility] [address] [place], [address] Platelets (Bld) [#/Vol] 275 10*3/uL Normal 150-450 [facility] Comment on above: Performed By: #### L 300.8000, L100.0100, L500.2500 ####[facility] [address] [place], [address] RBC (Bld) [#/Vol] 5.23 10*6/uL Normal 4.6-6.2 [facility] Comment on above: Performed By: #### L 300.8000, L100.0100, L500.2500 ####[facility] [address] [place], [address] RDW SD 37.9 fl Normal 35.1-43.9 [facility] Comment on above: Performed By: #### L 300.8000, L100.0100, L500.2500 ####[facility] [address] [place], [address] WBC (Bld) [#/Vol] 6.5 10*3/uL Normal 4.4-11.0 [facility] Comment on above: Performed By: #### L 300.8000, L100.0100, L500.2500 ####[facility] [address] [place], [address] CO2 (BldV) [Moles/Vol]Ordere d By: Luis Angel Win on 01-10-2025 CO2 [Moles/Vol] 25 mmol/L 23-33 [facility] Carbon dioxide, total [Moles /volume] in Central venous bloodOrdered By: Luis Angel Win on 01-10-2025 CO2 [Moles/Vol] 18.2 mmol/L Low 21.0-32.0 [facility] Chest PA and Lateralon 01-10 Chest PA and Lateral Normal [facility] Chloride assayOrdered By: Kailash Win on 01-10-2025 Chloride [Moles/Vol] 102 mmol/L 98-[address] [facility] D-Dimer Quantitative (DVT/PE )on 01-10-2025 D-DIMER QUANT 0.27 FEU/ug/m Normal 0.27-0.49 [facility] Comment on above: Result Comment: NORM AL D-Dimer level (<0.50) indicates no DVT or PE. Performed By: #### L 300.8000, L100.0100, L500.2500 ####[facility] [address] [place], [address] Emergency Department Summary on 01-10-2025 Emergency Department Summary Normal [facility] Eosinophil percentageOrdered By: Luis Angel Win on 01-10-2025 Eosinophils/100 WBC (Bld) 3.1 % 0-5 [facility] Erythrocyte distribution wid th ratioOrdered By: Luis Angel Win on 01-10-2025 Erythrocyte distribution width (RBC) [Ratio] 11.9 % 11.6-14.6 [facility] Erythrocyte distribution wid th standard deviationOrdered By: Luis Angel Win on 01-10-2025 Erythrocyte distribution width (RBC) [Ratio] 37.9 fl 35.1-43.9 [facility] Glomerular filtration rate ( GFR) estimation/1.73 sq m using serum, plasma, or whole bOrdered By: Luis Angel Win on 01-10-2025 GFR/1.73 sq M.predicted among non-blacks MDRD (S/P/Bld) [Vol rate/Area] 82 mL/min/{1.73_m2} >60 [facility] Comment on above: mL/min/1.73m2 CKD-EP I Creatinine Equation (2020) Hematocrit Auto (Bld) [Volum e fraction]Ordered By: Luis Angel Win on 01-10-2025 Hematocrit (Bld) [Volume fraction] 45.4 % 40-54 [facility] Hemoglobin measurementOrdere d By: Luis Angel Win on 01-10-2025 Hemoglobin (Bld) [Mass/Vol] 16.0 g/dL 13.0-16.5 [facility] Immature granulocytes/100 WB C Auto (Bld)Ordered By: Luis Angel Win on 01-10-2025 Immature granulocytes/100 WBC (Bld) 0.200 % 0.0-0.9 [facility] Comment on above: IG% - Immature Granu locytes (promyelocytes, myelocytes and metamyelocytes) > 1% indicates that a LEFT SHIFT is Present. Ketones Test strip Ql (U)Ord ered By: Luis Angel Win on 01-10-2025 Ketones Ql (U) Negative Negative [facility] L501.4021on 01-10-2025 Trop T High Sen < 6 Normal <=22 [facility] Comment on above: Performed By: #### L 501.4021 ####[facility] [address] [place], [address] MCV (mean corpuscular volume ) determinationOrdered By: Luis Angel Win on 01-10-2025 MCV (RBC) [Entitic vol] 86.8 fL 80-94 [facility] Mean corpuscular hemoglobin (MCH) determinationOrdered By: Luis Angel Win on 01-10-2025 MCH (RBC) [Entitic mass] 30.6 pg 27.0-32.0 [facility] Mean corpuscular hemoglobin concentration (MCHC) determinationOrdered By: Luis Angel Win on 01-10-2025 MCHC (RBC) [Mass/Vol] 35.2 g/dL 32-36 [facility] Mean platelet volume determi nationOrdered By: Luis Angel Win on 01-10-2025 Platelet mean volume (Bld) [Entitic vol] 9.8 fL 6.2-12.0 [facility] Microscopic analysis of urin e for red blood cells (RBC)Ordered By: Luis Angel Win on 01-10-2025 Microscopic analysis of urine for red blood cells (RBC) 0-5 SEEN /hpf 0-5 [facility] Monocyte percentageOrdered B y: Luis Angel Win on 01-10-2025 Monocytes/100 WBC (Bld) 5.2 % 0-10 [facility] Mucus LM Ql (Urine sed)Order ed By: Luis Angel Win on 01-10-2025 Mucus Ql (Urine sed) 0 SEEN /hpf [facility] Neutrophil percentageOrdered By: Luis Angel Win on 01-10-2025 Neutrophils/100 WBC (Bld) 72.0 % High 47-70 [facility] Nitrite Test strip Ql (U)Ord ered By: Luis Angel Win on 01-10-2025 Nitrite Ql (U) Negative Negative [facility] No Panel InformationOrdered By: Luis Angel Win on 01-10-2025 Blood Gas Sample Site Not entered [facility] Blood Gas Specimen Type TRENT [facility] Oxygen Delivery Device Room Air [facility] Nucleated red blood cell per centageOrdered By: Luis Angel Win on 01-10-2025 Nucleated RBC/100 WBC (Bld) [Ratio] 0 % 0-5 [facility] Platelet countOrdered By: Kailash Win on 01-10-2025 Platelets (Bld) [#/Vol] 275 10*3/uL 150-450 [facility] Potassium measurement (mass/ volume)Ordered By: Luis Angel Win on 01-10-2025 Potassium (Unsp spec) [Mass/Vol] 4.1 mmol/L 3.3-5.1 [facility] Comment on above: Hemolysis present, R esults could be affected. Protein Test strip Ql (U)Ord ered By: Luis Angel Win on 01-10-2025 Protein Ql (U) Negative Negative [facility] RBC Auto (Bld) [#/Vol]Ordere d By: Luis Angel Win on 01-10-2025 RBC (Bld) [#/Vol] 5.23 10*6/uL 4.6-6.2 [facility] Serum creatinine measurement (mass/volume)Ordered By: Luis Angel Win on 01-10-2025 Creatinine [Mass/Vol] 1.21 mg/dL High 0.70-1.20 [facility] Serum glucose measurement (m ass/volume)Ordered By: Luis Angel Win on 01-10-2025 Glucose [Mass/Vol] 202 mg/dL High 70-99 [facility] Serum or plasma calcium summer urement (mass/volume)Ordered By: Luis Angel Win on 01-10-2025 Calcium [Mass/Vol] 10.0 mg/dL 7.6-11.0 [facility] Serum or plasma urea nitroge n measurement (mass/volume)Ordered By: Luis Angel Win on 01-10-2025 Urea nitrogen [Mass/Vol] 11 mg/dL 4-19 [facility] Sodium levelOrdered By: Luis Angel Win on 01-10-2025 Sodium [Moles/Vol] 137 mmol/L 133-145 [facility] Squamous epithelial cells de tection in urine sediment by light microscopyOrdered By: Luis Angel Win on 01-10-2025 Epithelial cells.squamous LM Ql (Urine sed) 0-5 SEEN /hpf 0-5 [facility] Troponin T.cardiac [Mass/vol ume] in Serum or Plasma by High sensitivity methodOrdered By: Luis Angel Win on 01-10-2025 Troponin T.cardiac High sensitivity method [Mass/Vol] < 6 ng/L <22 [facility] Urinalysis, Completeon 01-10 AMORPHOUS 1+ Normal [facility] Comment on above: Order Comment: CLEAN CATCH Performed By: #### L 400.0001 ####[facility] [address] [place], [address] EPI,SQUAMOUS 0-5 SEEN Normal 0-5 [facility] Comment on above: Order Comment: CLEAN CATCH Performed By: #### L 400.0001 ####[facility] [address] [place], [address] RBC 0-5 SEEN Normal 0-5 [facility] Comment on above: Order Comment: CLEAN CATCH Performed By: #### L 400.0001 ####[facility] [address] [place], [address] WBC 0-5 SEEN Normal 0-5 [facility] Comment on above: Order Comment: CLEAN CATCH Performed By: #### L 400.0001 ####[facility] [address] [place], [address] BACTERIA 0 SEEN Normal None Seen [facility] Comment on above: Order Comment: CLEAN CATCH Performed By: #### L 400.0001 ####[facility] [address] [place], [address] Mucus Ql (Urine sed) 0 SEEN Normal [facility] Comment on above: Order Comment: CLEAN CATCH Performed By: #### L 400.0001 ####[facility] [address] [place], [address] Urine clarityOrdered By: Marbella Win on 01-10-2025 Clarity (U) Clear Clear [facility] Urine color determinationOrd ered By: Luis Angel Win on 01-10-2025 Color (U) Yellow Yellow [facility] Urine glucose detectionOrder ed By: Luis Angel Win on 01-10-2025 Glucose Ql (U) Normal mg/dl Normal [facility] Urine leukocyte esterase det ection by dipstickOrdered By: Luis Angel Win on 01-10-2025 Leukocyte esterase Test strip Ql (U) Negative Negative [facility] Urine pHOrdered By: Luis Angel griffin on 01-10-2025 pH (U) 7.0 [pH] 5.0 - 8.0 [facility] Urine sediment bacteria coun t by microscopy (number/high power field)Ordered By: Luis Angel Win on 01-10-2025 Bacteria LM.HPF (Urine sed) [#/Area] 0 /[HPF] None Seen [facility] Urine specific gravity measu rementOrdered By: Luis Angel Win on 01-10-2025 Specific gravity (U) [Rel density] 1.010 1.002-1.03 0 [facility] Urine urobilinogen measureme ntOrdered By: Luis Angel Win on 01-10-2025 Urobilinogen Ql (U) Normal mg/dl Normal [facility] Venous Blood Gason Blood Gas Type TRENT Normal [facility] Comment on above: Performed By: #### L 9000.0810 ####[facility] [address] [place], [address] CO2 [Moles/Vol] 25 mmol/L Normal 23-33 [facility] Comment on above: Performed By: #### L 9000.0810 ####[facility] [address] [place], [address] HCO3 (Bld) [Moles/Vol] 24 mmol/L Normal 22-26 [facility] Comment on above: Performed By: #### L 9000.0810 ####[facility] [address] [place], [address] O2 Delivery Dev Room Air Normal [facility] Comment on above: Performed By: #### L 9000.0810 ####[facility] [address] [place], [address] SITE Not entered Normal [facility] Comment on above: Performed By: #### L 9000.0810 ####[facility] [address] [place], [address] VBG BE 0 mmol/L Normal -1.0-3.5 [facility] Comment on above: Performed By: #### L 9000.0810 ####[facility] [address] [place], [place], [id number] VBG pCO2 36.8 mmHg Low 41-51 [facility] Comment on above: Performed By: #### L 9000.0810 ####[facility] [address] [place], [address] VBG pH 7.42 Normal 7.32-7.42 [facility] Comment on above: Performed By: #### L 9000.0810 ####[facility] [address] [place], [address] VBG PO2 46 mmHg High 25-40 [facility] Comment on above: Performed By: #### L 9000.0810 ####[facility] [address] [place], [address] VBG SO2 83 High 50-70 [facility] Comment on above: Performed By: #### L 9000.0810 ####[facility] [address] [place], [address] Venous blood base excess corina surementOrdered By: Luis Angel Win on 01-10-2025 Base excess Calc (BldV) [Moles/Vol] 0 mmol/L -1.0-3.5 [facility] Venous blood bicarbonate corina surementOrdered By: Luis Angel Win on 01-10-2025 HCO3 (Bld) [Moles/Vol] 24 mmol/L 22-26 [facility] Venous blood oxygen saturati on measurementOrdered By: Luis Angel Win on 01-10-2025 Oxygen saturation in Blood 83 % High 50-70 [facility] Venous blood pH measurementO rdered By: Luis Angel Win on 01-10-2025 pH (BldV) 7.42 [pH] 7.32-7.42 [facility] Venous blood partial pressur e of carbon dioxide measurementOrdered By: Luis Angel Win on 01-10-2025 CO2 (BldV) [Partial pressure] 36.8 mm[Hg] Low 41-51 [facility] Venous blood partial pressur e of oxygen measurementOrdered By: Luis Angel Win on 01-10-2025 Oxygen (BldV) [Partial pressure] 46 mm[Hg] High 25-40 [facility] White blood cell (WBC) count Ordered By: Luis Angel Win on 01-10-2025 WBC (Bld) [#/Vol] 6.5 10*3/uL 4.4-11.0 [facility] White blood cell countOrdere d By: Luis Angel Win on 01-10-2025 White blood cell count 0-5 SEEN /hpf 0-5 [facility] Internal Medicine Office Vis iton 11-24-2024 Internal Medicine Office Visit Normal [facility] Anion gap in Serum or Plasma Ordered By: Hina Sampson on 11-10-2024 Anion gap [Moles/Vol] 10 mmol/L 5-15 [facility] BUN/creatinine ratioOrdered By: Hina Sampson on 11-10-2024 Urea nitrogen/Creatinine [Mass ratio] 12.3 mg/mg 10-20 [facility] Bilirubin, totalOrdered By: Hina Sampson on 11-10-2024 Bilirubin [Mass/Vol] 0.58 mg/dL 0.00-1.[address] [facility] Carbon dioxide, total [Moles /volume] in Central venous bloodOrdered By: Hina Sampson on 11-10-2024 CO2 [Moles/Vol] 22.8 mmol/L 21.0-32.0 [facility] Chloride assayOrdered By: Susana Sampson on 11-10-2024 Chloride [Moles/Vol] 104 mmol/L 98-[address] [facility] Comprehensive Metabolic Prof ilon 11-10-2024 Albumin [Mass/Vol] 4.1 g/dL Normal 3.5-5.0 [facility] Comment on above: Performed By: #### L 500.4050, L501.9520 ####[facility] [address] [place], [address] Albumin/Globulin [Mass ratio] 1.3 {ratio} Normal 0.9-2.4 [facility] Comment on above: Performed By: #### L 500.4050, L501.9520 ####[facility] [address] [place], [address] ALK PHOS 131 U/L High 40-129 [facility] Comment on above: Performed By: #### L 500.4050, L501.9520 ####[facility] [address] [place], [address] ALT [Catalytic activity/Vol] 113 U/L High <=46 [facility] Comment on above: Performed By: #### L 500.4050, L501.9520 ####[facility] [address] [place], [address] AST [Catalytic activity/Vol] 51 U/L High <=37 [facility] Comment on above: Performed By: #### L 500.4050, L501.9520 ####[facility] [address] [place], [address] Bilirubin [Mass/Vol] 0.58 mg/dL Normal 0.00-1.[address] [facility] Comment on above: Performed By: #### L 500.4050, L501.9520 ####[facility] [address] [place], [address] BUN/CRE 12.3 RATIO Normal 10-20 [facility] Comment on above: Performed By: #### L 500.4050, L501.9520 ####[facility] [address] [place], [address] Calcium [Mass/Vol] 9.7 mg/dL Normal 7.6-11.0 [facility] Comment on above: Performed By: #### L 500.4050, L501.9520 ####[facility] [address] [place], [address] Chloride [Moles/Vol] 104 mmol/L Normal 98-[address] [facility] Comment on above: Performed By: #### L 500.4050, L501.9520 ####[facility] [address] [place], [address] CO2 [Moles/Vol] 22.8 mmol/L Normal 21.0-32.0 [facility] Comment on above: Performed By: #### L 500.4050, L501.9520 ####[facility] [address] [place], [address] Creatinine [Mass/Vol] 1.04 mg/dL Normal 0.70-1.20 [facility] Comment on above: Performed By: #### L 500.4050, L501.9520 ####[facility] [address] [place], [address] GAP 10 Normal 5-15 [facility] Comment on above: Performed By: #### L 500.4050, L501.9520 ####[facility] [address] [place], [address] GFR/1.73 sq M.predicted among non-blacks MDRD (S/P/Bld) [Vol rate/Area] 98 mL/min/{1.73_m2} Normal >60 [facility] Comment on above: Result Comment: mL/m in/1.73m2 CKD-EPI Creatinine Equation (2020) Performed By: #### L 500.4050, L501.9520 ####[facility] [address] [place], [address] Globulin (S) [Mass/Vol] 3.1 g/dL Normal 2.2-4.2 [facility] Comment on above: Performed By: #### L 500.4050, L501.9520 ####[facility] [address] [place], [address] Glucose [Mass/Vol] 108 mg/dL High 70-99 [facility] Comment on above: Performed By: #### L 500.4050, L501.9520 ####[facility] [address] [place], [address] Potassium [Moles/Vol] 4.1 mmol/L Normal 3.3-5.1 [facility] Comment on above: Performed By: #### L 500.4050, L501.9520 ####[facility] [address] [place], [address] Sodium [Moles/Vol] 137 mmol/L Normal 133-145 [facility] Comment on above: Performed By: #### L 500.4050, L501.9520 ####[facility] [address] [place], [address] T PROT 7.2 g/dL Normal 5.9-8.4 [facility] Comment on above: Performed By: #### L 500.4050, L501.9520 ####[facility] [address] [place], [address] Urea nitrogen [Mass/Vol] 13 mg/dL Normal 4-19 [facility] Comment on above: Performed By: #### L 500.4050, L501.9520 ####[facility] [address] [place], [address] Gastroenterology Visit Repor [facility] 11-10-2024 Gastroenterology Visit Report Normal [facility] Glomerular filtration rate ( GFR) estimation/1.73 sq m using serum, plasma, or whole bOrdered By: Hina Sampson on 11-10-2024 GFR/1.73 sq M.predicted among non-blacks MDRD (S/P/Bld) [Vol rate/Area] 98 mL/min/{1.73_m2} >60 [facility] Comment on above: mL/min/1.73m2 CKD-EP I Creatinine Equation (2020) Laboratory - Chemistry and C hemistry - challengeOrdered By: Hina Sampson on 11-10-2024 AST [Catalytic activity/Vol] 51 U/L High <38 [facility] Potassium measurement (mass/ volume)Ordered By: Hina Sampson on 11-10-2024 Potassium (Unsp spec) [Mass/Vol] 4.1 mmol/L 3.3-5.1 [facility] Serum creatinine measurement (mass/volume)Ordered By: Hina Sampson on 11-10-2024 Creatinine [Mass/Vol] 1.04 mg/dL 0.70-1.20 [facility] Serum globulin measurementOr dered By: Hina Sampson on 11-10-2024 Globulin (S) [Mass/Vol] 3.1 g/dL 2.2-4.2 [facility] Serum glucose measurement (m ass/volume)Ordered By: Hina Sampson on 11-10-2024 Glucose [Mass/Vol] 108 mg/dL High 70-99 [facility] Serum or plasma alanine recinos otransferase (ALT) measurementOrdered By: Hina Sampson on 11-10-2024 ALT [Catalytic activity/Vol] 113 U/L High <47 [facility] Serum or plasma albumin summer urement (mass/volume)Ordered By: Hina Sampson on 11-10-2024 Albumin [Mass/Vol] 4.1 g/dL 3.5-5.0 [facility] Serum or plasma albumin/glob ulin mass ratioOrdered By: Hina Sampson on 11-10-2024 Albumin/Globulin [Mass ratio] 1.3 {ratio} 0.9-2.4 [facility] Serum or plasma alkaline nirav sphatase measurementOrdered By: Hina Sampson on 11-10-2024 ALP [Catalytic activity/Vol] 131 U/L High 40-129 [facility] Serum or plasma calcium summer urement (mass/volume)Ordered By: Hina Sampson on 11-10-2024 Calcium [Mass/Vol] 9.7 mg/dL 7.6-11.0 [facility] Serum or plasma urea nitroge n measurement (mass/volume)Ordered By: Hina Sampson on 11-10-2024 Urea nitrogen [Mass/Vol] 13 mg/dL 4-19 [facility] Sodium levelOrdered By: Errol Sampson on 11-10-2024 Sodium [Moles/Vol] 137 mmol/L 133-145 [facility] TSH DL <= 0.005 mIU/L QnOrde red By: Danny Walter on 11-10-2024 TSH Qn 4.080 uIU/mL 0.300-4.20 0 [facility] Thyroid Stim Hormone (TSH)on 11-10-2024 TSH 4.080 uIU/mL Normal 0.300-4.20 0 [facility] Comment on above: Performed By: #### L 500.4050, L501.9520 ####[facility] [address] [place], [place], [address] Total proteinOrdered By: Radha Sampson on 11-10-2024 Protein [Mass/Vol] 7.2 g/dL 5.9-8.4 [facility] Internal Medicine Office Vis iton 11-03-2024 Internal Medicine Office Visit Normal [facility] CAROLANN w/ Reflex Mult Confirmon 08-05-2024 CAROLANN,DIRECT Negative Normal Negative [facility] Comment on above: Result Comment: Perf ormed at: - [facility] [address] [id number] Director: Popeye Joseph PhD, Phone: [phone] Performed By: #### L 3100.4951, L803.2200, L3300.1200, L3100.5450, L100.0100 ####[facility] [address] [place], [address] ANCAon 08-05-2024 Atypical pANCA <1:20 Normal Neg:<1:20 [facility] Comment on above: Result Comment: The atypical pANCA pattern has been observed in asignificant percentage of patients with ulcerative colitis,primary sclerosing cholangitis and autoimmune hepatitis. Performed By: #### L 3100.5440, L803.2200, L3300.1200, L3100.5450, L100.0100 ####[facility] [address] [place], [address] Cytoplasmic Ab <1:20 Normal Neg:<1:20 [facility] Comment on above: Performed By: #### L 3100.5440, L803.2200, L3300.1200, L3100.5450, L100.0100 ####[facility] [address] [place], [address] Perinuclear Ab. <1:20 Normal Neg:<1:20 [facility] Comment on above: Result Comment: The presence of positive fluorescence exhibiting P-ANCA orC-ANCA patterns alone is not specific for the diagnosis ofWegener's Granulomatosis (WG) or microscopic polyangiitis.Decisions about treatment should not be based solely onANCA IFA results. The International ANCA Group Consensusrecommends follow up testing of positive sera with both RI-3 and MPO-ANCA enzyme immunoassays. As many as 5% serumsamples are positive only by EIA. Ref. AM J Clin Qkyrvy3006;111:507-513. Performed By: #### L 3100.5440, L803.2200, L3300.1200, L3100.5450, L100.0100 ####[facility] [address] [place], [address] Anti-Smooth Muscle ABSon ANTISMOOTH MUSC 7 Units Normal 0-19 [facility] Comment on above: Result Comment: Nega tive 0 - 19 Weak positive 20 - 30 Moderate to strong positive >30 Actin Antibodies are found in 52-85% of patients with autoimmune hepatitis or chronic active hepatitis and in 22% of patients with primary biliary cirrhosis.Performed at: [address] [id number] Director: Popeye Joseph PhD, Phone: [phone] Performed By: #### L 3100.5440, L803.2200, L3300.1200, L3100.5450, L100.0100 ####[facility] [address] [place], [place], [address] CAROLANN Comprehensive Panelon CAROLANN TABLE TNP Normal [facility] Comment on above: Performed By: #### L 3100.5440, L803.2200, L3300.1200, L3100.5450, L100.0100 ####[facility] [address] [place], [place], [id number] Absolute lymphocyte countOrd ered By: Hina Sampson on 08-04-2024 Lymphocytes Auto (Unsp spec) [#/Vol] 1.74 10*3/uL 0.83-4.51 [facility] Absolute neutrophil countOrd ered By: Hina Sampson on 08-04-2024 Neutrophils (Bld) [#/Vol] 4.1 10*3/uL 2.0-7.7 [facility] Automated lymphocyte count a s percentage of total leukocytesOrdered By: Hina Sampson on 08-04-2024 Lymphocytes/100 WBC Auto (Unsp spec) 25.7 % 19-41 [facility] Basophil percentageOrdered B y: Hina Sampson on 08-04-2024 Basophils/100 WBC (Bld) 0.6 % 0-1 [facility] CBC W/Diff, Automatedon Absolute Lymph 1.74 X10 3/uL Normal 0.83-4.51 [facility] Comment on above: Performed By: #### L 3100.5440, L803.2200, L3300.1200, L3100.5450, L100.0100 ####[facility] [address] [place], [address] Absolute Neut 4.1 X10 3/uL Normal 2.0-7.7 [facility] Comment on above: Performed By: #### L 3100.5440, L803.2200, L3300.1200, L3100.5450, L100.0100 ####[facility] [address] [place], [address] Basophils/100 WBC (Bld) 0.6 % Normal 0-1 [facility] Comment on above: Performed By: #### L 3100.5440, L803.2200, L3300.1200, L3100.5450, L100.0100 ####[facility] [address] [place], [address] Eosinophils/100 WBC (Bld) 4.6 % Normal 0-5 [facility] Comment on above: Performed By: #### L 3100.5440, L803.2200, L3300.1200, L3100.5450, L100.0100 ####[facility] [address] [place], [address] Erythrocyte distribution width (RBC) [Ratio] 12.0 % Normal 11.6-14.6 [facility] Comment on above: Performed By: #### L 3100.5440, L803.2200, L3300.1200, L3100.5450, L100.0100 ####[facility] [address] [place], [address] Hematocrit (Bld) [Volume fraction] 45.4 % Normal 40-54 [facility] Comment on above: Performed By: #### L 3100.5440, L803.2200, L3300.1200, L3100.5450, L100.0100 ####[facility] [address] [place], [address] Hemoglobin (Bld) [Mass/Vol] 15.7 g/dL Normal 13.0-16.5 [facility] Comment on above: Performed By: #### L 3100.5440, L803.2200, L3300.1200, L3100.5450, L100.0100 ####[facility] [address] [place], [address] IG% 0.400 Normal 0.0-0.9 [facility] Comment on above: Result Comment: IG% - Immature Granulocytes (promyelocytes, myelocytes andmetamyelocytes) > 1% indicates that a LEFT SHIFT is Present. Performed By: #### L 3100.5440, L803.2200, L3300.1200, L3100.5450, L100.0100 ####[facility] [address] [place], [address] Lymphocytes/100 WBC (Bld) 25.7 % Normal 19-41 [facility] Comment on above: Performed By: #### L 3100.5440, L803.2200, L3300.1200, L3100.5450, L100.0100 ####[facility] [address] [place], [address] MCH (RBC) [Entitic mass] 30.8 pg Normal 27.0-32.0 [facility] Comment on above: Performed By: #### L 3100.5440, L803.2200, L3300.1200, L3100.5450, L100.0100 ####[facility] [address] [place], [address] MCHC (RBC) [Mass/Vol] 34.6 g/dL Normal 32-36 [facility] Comment on above: Performed By: #### L 3100.5440, L803.2200, L3300.1200, L3100.5450, L100.0100 ####[facility] [address] [place], [address] MCV (RBC) [Entitic vol] 89.0 fL Normal 80-94 [facility] Comment on above: Performed By: #### L 3100.5440, L803.2200, L3300.1200, L3100.5450, L100.0100 ####[facility] [address] [place], [address] Monocytes/100 WBC (Bld) 8.0 % Normal 0-10 [facility] Comment on above: Performed By: #### L 3100.5440, L803.2200, L3300.1200, L3100.5450, L100.0100 ####[facility] [address] [place], [address] Neutrophils/100 WBC (Bld) 60.7 % Normal 47-70 [facility] Comment on above: Performed By: #### L 3100.5440, L803.2200, L3300.1200, L3100.5450, L100.0100 ####[facility] [address] [place], [address] Nucleated RBC (Bld) [#/Vol] 0 10*3/uL Normal 0-5 [facility] Comment on above: Performed By: #### L 3100.5440, L803.2200, L3300.1200, L3100.5450, L100.0100 ####[facility] [address] [place], [address] Platelet mean volume (Bld) [Entitic vol] 9.2 fL Normal 6.2-12.0 [facility] Comment on above: Performed By: #### L 3100.5440, L803.2200, L3300.1200, L3100.5450, L100.0100 ####[facility] [address] [place], [address] Platelets (Bld) [#/Vol] 256 10*3/uL Normal 150-450 [facility] Comment on above: Performed By: #### L 3100.5440, L803.2200, L3300.1200, L3100.5450, L100.0100 ####[facility] [address] [place], [address] RBC (Bld) [#/Vol] 5.10 10*6/uL Normal 4.6-6.2 [facility] Comment on above: Performed By: #### L 3100.5440, L803.2200, L3300.1200, L3100.5450, L100.0100 ####[facility] [address] [place], [address] RDW SD 39.3 fl Normal 35.1-43.9 [facility] Comment on above: Performed By: #### L 3100.5440, L803.2200, L3300.1200, L3100.5450, L100.0100 ####[facility] [address] [place], [address] WBC (Bld) [#/Vol] 6.8 10*3/uL Normal 4.4-11.0 [facility] Comment on above: Performed By: #### L 3100.5440, L803.2200, L3300.1200, L3100.5450, L100.0100 ####[facility] [address] [place], [address] Eosinophil percentageOrdered By: Hina Sampson on 08-04-2024 Eosinophils/100 WBC (Bld) 4.6 % 0-5 [facility] Erythrocyte distribution wid th ratioOrdered By: Hina Sampson on 08-04-2024 Erythrocyte distribution width (RBC) [Ratio] 12.0 % 11.6-14.6 [facility] Erythrocyte distribution wid th standard deviationOrdered By: Hina Sampson on 08-04-2024 Erythrocyte distribution width (RBC) [Ratio] 39.3 fl 35.1-43.9 [facility] Gastroenterology Visit Repor ton 08-04-2024 Gastroenterology Visit Report Normal [facility] Hematocrit Auto (Bld) [Volum e fraction]Ordered By: Hina Sampson on 08-04-2024 Hematocrit (Bld) [Volume fraction] 45.4 % 40-54 [facility] Hemoglobin measurementOrdere d By: Hina Sampson on 08-04-2024 Hemoglobin (Bld) [Mass/Vol] 15.7 g/dL 13.0-16.5 [facility] Immature granulocytes/100 WB C Auto (Bld)Ordered By: Hina Sampson on 08-04-2024 Immature granulocytes/100 WBC (Bld) 0.400 % 0.0-0.9 [facility] Comment on above: IG% - Immature Granu locytes (promyelocytes, myelocytes and metamyelocytes) > 1% indicates that a LEFT SHIFT is Present. MCV (mean corpuscular volume ) determinationOrdered By: Hina Sampson on 08-04-2024 MCV (RBC) [Entitic vol] 89.0 fL 80-94 [facility] Mean corpuscular hemoglobin (MCH) determinationOrdered By: Hina Sampson on 08-04-2024 MCH (RBC) [Entitic mass] 30.8 pg 27.0-32.0 [facility] Mean corpuscular hemoglobin concentration (MCHC) determinationOrdered By: Hina Sampson on 08-04-2024 MCHC (RBC) [Mass/Vol] 34.6 g/dL 32-36 [facility] Mean platelet volume determi nationOrdered By: Hina Sampson on 08-04-2024 Platelet mean volume (Bld) [Entitic vol] 9.2 fL 6.2-12.0 [facility] Monocyte percentageOrdered B y: Hina Sampson on 08-04-2024 Monocytes/100 WBC (Bld) 8.0 % 0-10 [facility] Neutrophil percentageOrdered By: Hina Sampson on 08-04-2024 Neutrophils/100 WBC (Bld) 60.7 % 47-70 [facility] Nucleated red blood cell per centageOrdered By: Hina Sampson on 08-04-2024 Nucleated RBC/100 WBC (Bld) [Ratio] 0 % 0-5 [facility] Platelet countOrdered By: Susana Sampson on 08-04-2024 Platelets (Bld) [#/Vol] 256 10*3/uL 150-450 [facility] RBC Auto (Bld) [#/Vol]Ordere d By: Hina Sampson on 08-04-2024 RBC (Bld) [#/Vol] 5.10 10*6/uL 4.6-6.2 [facility] Serum DNA double strand anti body assay (units/volume)Ordered By: Hina Sampson on 08-04-2024 DNA double strand Ab Qn (S) [facility] Comment on above: Test not performed Serum Scl-70 antibody assay (units/volume)Ordered By: Hina Sampson on 08-04-2024 SCL-70 extractable nuclear Ab Qn (S) [facility] Comment on above: Test not performed Serum classic neutrophil cyt oplasmic antibody assay (units/volume)Ordered By: Hina Sampson on 08-04-2024 Neutrophil cytoplasmic Ab.classic Qn (S) <1:20 titer Neg:<1:20 [facility] Serum or plasma actin IgG an tibody assay (units/volume)Ordered By: Hina Sampson on 08-04-2024 Actin IgG Qn 7 Units 0-19 [facility] Comment on above: Negative 0 - 19 Weak positive 20 - 30 Moderate to strong positive >30 Actin Antibodies are found in 52-85% of patients with autoimmune hepatitis or chronic active hepatitis and in 22% of patients with primary biliary cirrhosis.Performed at: [facility] [id number] Director: Popeye Joseph PhD, Phone: [phone] Serum perinuclear neutrophil cytoplasmic antibody titer by immunofluorescenceOrdered By: Hina Sampson on 08-04-2024 Neutrophil cytoplasmic Ab.perinuclear IF (S) [Titer] <1:20 titer Neg:<1:20 [facility] Comment on above: The presence of posi tive fluorescence exhibiting P-ANCA orC-ANCA patterns alone is not specific for the diagnosis ofWegener's Granulomatosis (WG) or microscopic polyangiitis.Decisions about treatment should not be based solely onANCA IFA results. The International ANCA Group Consensusrecommends follow up testing of positive sera with both RI-3 and MPO-ANCA enzyme immunoassays. As many as 5% serumsamples are positive only by EIA. Ref. AM J Clin [id number];111:507-513. White blood cell (WBC) count Ordered By: Hina Sampson on 08-04-2024 WBC (Bld) [#/Vol] 6.8 10*3/uL 4.4-11.0 [facility] Absolute lymphocyte countOrd ered By: Jese Velez on 07-23-2024 Lymphocytes Auto (Unsp spec) [#/Vol] 1.82 10*3/uL 0.83-4.51 [facility] Absolute neutrophil countOrd ered By: Jese Velez on 07-23-2024 Neutrophils (Bld) [#/Vol] 5.3 10*3/uL 2.0-7.7 [facility] Albumin to globulin ratioOrd ered By: Jese Velez on 07-23-2024 Albumin/Globulin [Mass ratio] 0.9 {ratio} 0.9-2.4 [facility] Automated lymphocyte count a s percentage of total leukocytesOrdered By: Jese Velez on 07-23-2024 Lymphocytes/100 WBC Auto (Unsp spec) 23.2 % 19-41 [facility] Basophil percentageOrdered B y: Jese Velez on 07-23-2024 Basophils/100 WBC (Bld) 0.8 % 0-1 [facility] Bilirubin, totalOrdered By: Jese Velez on 07-23-2024 Bilirubin [Mass/Vol] 0.60 mg/dL 0.20-1.[address] [facility] Comment on above: For patients on eltr ombopag therapy, use of Dimension [place] TBIL is not recommended. Blood urea nitrogen (BUN)/cr eatinine ratioOrdered By: Jese Velez on 07-23-2024 Urea nitrogen/Creatinine [Mass ratio] 9.8 mg/mg Low 10-20 [facility] CBC W/Diff, Automatedon 07-01 Absolute Lymph 1.82 X10 3/uL Normal 0.83-4.51 [facility] Comment on above: Performed By: #### L 500.4050, L100.0100 ####[facility] [address] [place], [address] Absolute Neut 5.3 X10 3/uL Normal 2.0-7.7 [facility] Comment on above: Performed By: #### L 500.4050, L100.0100 ####[facility] [address] [place], [address] Basophils/100 WBC (Bld) 0.8 % Normal 0-1 [facility] Comment on above: Performed By: #### L 500.4050, L100.0100 ####[facility] [address] [place], [address] Eosinophils/100 WBC (Bld) 2.2 % Normal 0-5 [facility] Comment on above: Performed By: #### L 500.4050, L100.0100 ####[facility] [address] [place], [address] Erythrocyte distribution width (RBC) [Ratio] 12.0 % Normal 11.6-14.6 [facility] Comment on above: Performed By: #### L 500.4050, L100.0100 ####[facility] [address] [place], [address] Hematocrit (Bld) [Volume fraction] 47.0 % Normal 40-54 [facility] Comment on above: Performed By: #### L 500.4050, L100.0100 ####[facility] [address] [place], [address] Hemoglobin (Bld) [Mass/Vol] 16.3 g/dL Normal 13.0-16.5 [facility] Comment on above: Performed By: #### L 500.4050, L100.0100 ####[facility] [address] [place], [address] IG% 0.100 Normal 0.0-0.9 [facility] Comment on above: Result Comment: IG% - Immature Granulocytes (promyelocytes, myelocytes andmetamyelocytes) > 1% indicates that a LEFT SHIFT is Present. Performed By: #### L 500.4050, L100.0100 ####[facility] [address] [place], [address] Lymphocytes/100 WBC (Bld) 23.2 % Normal 19-41 [facility] Comment on above: Performed By: #### L 500.4050, L100.0100 ####[facility] [address] [place], [address] MCH (RBC) [Entitic mass] 30.7 pg Normal 27.0-32.0 [facility] Comment on above: Performed By: #### L 500.4050, L100.0100 ####[facility] [address] [place], [address] MCHC (RBC) [Mass/Vol] 34.7 g/dL Normal 32-36 [facility] Comment on above: Performed By: #### L 500.4050, L100.0100 ####[facility] [address] [place], [address] MCV (RBC) [Entitic vol] 88.5 fL Normal 80-94 [facility] Comment on above: Performed By: #### L 500.4050, L100.0100 ####[facility] [address] [place], [address] Monocytes/100 WBC (Bld) 6.4 % Normal 0-10 [facility] Comment on above: Performed By: #### L 500.4050, L100.0100 ####[facility] [address] [place], [address] Neutrophils/100 WBC (Bld) 67.3 % Normal 47-70 [facility] Comment on above: Performed By: #### L 500.4050, L100.0100 ####[facility] [address] [place], [address] Nucleated RBC (Bld) [#/Vol] 0 10*3/uL Normal 0-5 [facility] Comment on above: Performed By: #### L 500.4050, L100.0100 ####[facility] [address] [place], [address] Platelet mean volume (Bld) [Entitic vol] 9.5 fL Normal 6.2-12.0 [facility] Comment on above: Performed By: #### L 500.4050, L100.0100 ####[facility] [address] [place], [address] Platelets (Bld) [#/Vol] 253 10*3/uL Normal 150-450 [facility] Comment on above: Performed By: #### L 500.4050, L100.0100 ####[facility] [address] [place], [address] RBC (Bld) [#/Vol] 5.31 10*6/uL Normal 4.6-6.2 [facility] Comment on above: Performed By: #### L 500.4050, L100.0100 ####[facility] [address] [place], [address] RDW SD 38.5 fl Normal 35.1-43.9 [facility] Comment on above: Performed By: #### L 500.4050, L100.0100 ####[facility] [address] [place], [address] WBC (Bld) [#/Vol] 7.8 10*3/uL Normal 4.4-11.0 [facility] Comment on above: Performed By: #### L 500.4050, L100.0100 ####[facility] [address] [place], [address] Carbon dioxide measurementOr dered By: Jese Velez on 07-23-2024 CO2 [Moles/Vol] 27.0 mmol/L 21.0-32.0 [facility] Chloride measurementOrdered By: Jese Velez on 07-23-2024 Chloride [Moles/Vol] 108 mmol/L High 98-[address] [facility] Comprehensive Metabolic Prof ilon 07-23-2024 Albumin [Mass/Vol] 3.8 g/dL Normal 3.2-5.0 [facility] Comment on above: Performed By: #### L 500.4050, L100.0100 ####[facility] [address] [place], [address] Albumin/Globulin [Mass ratio] 0.9 {ratio} Normal 0.9-2.4 [facility] Comment on above: Performed By: #### L 500.4050, L100.0100 ####[facility] [address] [place], [address] ALK P 135 U/L High 45-117 [facility] Comment on above: Performed By: #### L 500.4050, L100.0100 ####[facility] [address] [place], [address] ALT [Catalytic activity/Vol] 115 U/L High 16-61 [facility] Comment on above: Performed By: #### L 500.4050, L100.0100 ####[facility] [address] [place], [address] AST [Catalytic activity/Vol] 44 U/L High 15-37 [facility] Comment on above: Performed By: #### L 500.4050, L100.0100 ####[facility] [address] [place], [address] Bilirubin [Mass/Vol] 0.60 mg/dL Normal 0.20-1.[address] [facility] Comment on above: Result Comment: For patients on eltrombopag therapy, use of Dimension [place] TBIL is not recommended. Performed By: #### L 500.4050, L100.0100 ####[facility] [address] [place], [address] BUN/CRE 9.8 RATIO Low 10-20 [facility] Comment on above: Performed By: #### L 500.4050, L100.0100 ####[facility] [address] [place], [address] CA,Total 9.6 mg/dL Normal 8.5-10.1 [facility] Comment on above: Performed By: #### L 500.4050, L100.0100 ####[facility] [address] [place], [address] Chloride [Moles/Vol] 108 mmol/L High 98-[address] [facility] Comment on above: Performed By: #### L 500.4050, L100.0100 ####[facility] [address] [place], [address] CO2 [Moles/Vol] 27.0 mmol/L Normal 21.0-32.0 [facility] Comment on above: Performed By: #### L 500.4050, L100.0100 ####[facility] [address] [place], [address] Creatinine [Mass/Vol] 1.33 mg/dL High 0.70-1.30 [facility] Comment on above: Result Comment: The validity of the calculated GFR GFRAA in patients over70 years has not been determined. Clinical correlation isessential. Performed By: #### L 500.4050, L100.0100 ####[facility] [address] [place], [address] ECRCL 103.04 ml/min Normal [facility] Comment on above: Performed By: #### L 500.4050, L100.0100 ####[facility] [address] [place], [address] EST GFR - AA 80 mL/min Normal >60 [facility] Comment on above: Result Comment: Afri can Prydeinig GFR Calc Performed By: #### L 500.4050, L100.0100 ####[facility] [address] [place], [address] GAP 6 Normal 5-15 [facility] Comment on above: Performed By: #### L 500.4050, L100.0100 ####[facility] [address] [place], [address] GFR/1.73 sq M.predicted among non-blacks MDRD (S/P/Bld) [Vol rate/Area] 66 mL/min/{1.73_m2} Normal >60 [facility] Comment on above: Result Comment: Non- GFR Calc Performed By: #### L 500.4050, L100.0100 ####[facility] [address] [place], [address] Globulin (S) [Mass/Vol] 4.1 g/dL Normal 2.2-4.2 [facility] Comment on above: Performed By: #### L 500.4050, L100.0100 ####[facility] [address] [place], [address] Glucose [Mass/Vol] 101 mg/dL Normal 74-106 [facility] Comment on above: Result Comment: Fast ing Glucose result from 100 to 125 mg/dLsuggests IMPAIRED HOMEOSTASIS per A.D.A. criteria. Performed By: #### L 500.4050, L100.0100 ####[facility] [address] [place], [address] Potassium [Moles/Vol] 3.7 mmol/L Normal 3.5-5.1 [facility] Comment on above: Performed By: #### L 500.4050, L100.0100 ####[facility] [address] [place], [address] Sodium [Moles/Vol] 141 mmol/L Normal 136-145 [facility] Comment on above: Performed By: #### L 500.4050, L100.0100 ####[facility] [address] [place], [address] T PROT 7.9 g/dL Normal 6.4-8.2 [facility] Comment on above: Performed By: #### L 500.4050, L100.0100 ####[facility] [address] [place], [address] Urea nitrogen [Mass/Vol] 13 mg/dL Normal 7-18 [facility] Comment on above: Performed By: #### L 500.4050, L100.0100 ####[facility] [address] [place], [address] Emergency Department Summary on 07-23-2024 Emergency Department Summary Normal [facility] Eosinophil percentageOrdered By: Jese Velez on 07-23-2024 Eosinophils/100 WBC (Bld) 2.2 % 0-5 [facility] Erythrocyte distribution wid th ratioOrdered By: Jese Velez on 07-23-2024 Erythrocyte distribution width (RBC) [Ratio] 12.0 % 11.6-14.6 [facility] Erythrocyte distribution wid th standard deviationOrdered By: Jese Velez on 07-23-2024 Erythrocyte distribution width (RBC) [Ratio] 38.5 fl 35.1-43.9 [facility] Glomerular filtration rate ( GFR) estimationOrdered By: Jese Velez on 07-23-2024 GFR/1.73 sq M.predicted among non-blacks MDRD (S/P/Bld) [Vol rate/Area] 66 mL/min/{1.73_m2} >60 [facility] Comment on above: Non- GFR Calc Glucose measurementOrdered B y: Jese Velez on 07-23-2024 Glucose [Mass/Vol] 101 mg/dL 74-106 [facility] Comment on above: Fasting Glucose resu lt from 100 to 125 mg/dL suggests IMPAIRED HOMEOSTASIS per A.D.A. criteria. Hematocrit Auto (Bld) [Volum e fraction]Ordered By: Jese Velez on 07-23-2024 Hematocrit (Bld) [Volume fraction] 47.0 % 40-54 [facility] Hemoglobin measurementOrdere d By: Jese Velez on 07-23-2024 Hemoglobin (Bld) [Mass/Vol] 16.3 g/dL 13.0-16.5 [facility] Immature granulocytes/100 WB C Auto (Bld)Ordered By: Jese Velez on 07-23-2024 Immature granulocytes/100 WBC (Bld) 0.100 % 0.0-0.9 [facility] Comment on above: IG% - Immature Granu locytes (promyelocytes, myelocytes and metamyelocytes) > 1% indicates that a LEFT SHIFT is Present. Laboratory - Chemistry and C hemistry - challengeOrdered By: Jese Velez on 07-23-2024 AST [Catalytic activity/Vol] 44 U/L High 15-37 [facility] MCV (mean corpuscular volume ) determinationOrdered By: Jese Velez on 07-23-2024 MCV (RBC) [Entitic vol] 88.5 fL 80-94 [facility] Mean corpuscular hemoglobin (MCH) determinationOrdered By: Jese Velez on 07-23-2024 MCH (RBC) [Entitic mass] 30.7 pg 27.0-32.0 [facility] Mean corpuscular hemoglobin concentration (MCHC) determinationOrdered By: Jese Velez on 07-23-2024 MCHC (RBC) [Mass/Vol] 34.7 g/dL 32-36 [facility] Mean platelet volume determi nationOrdered By: Jese Velez on 07-23-2024 Platelet mean volume (Bld) [Entitic vol] 9.5 fL 6.2-12.0 [facility] Monocyte percentageOrdered B y: Jese Velez on 07-23-2024 Monocytes/100 WBC (Bld) 6.4 % 0-10 [facility] Neutrophil percentageOrdered By: Jese Velez on 07-23-2024 Neutrophils/100 WBC (Bld) 67.3 % 47-70 [facility] Nucleated red blood cell per centageOrdered By: Jese Velez on 07-23-2024 Nucleated RBC/100 WBC (Bld) [Ratio] 0 % 0-5 [facility] Platelet countOrdered By: Meliza Velez on 07-23-2024 Platelets (Bld) [#/Vol] 253 10*3/uL 150-450 [facility] Potassium measurementOrdered By: Jese Velez on 07-23-2024 Potassium [Moles/Vol] 3.7 mmol/L 3.5-5.1 [facility] RBC Auto (Bld) [#/Vol]Ordere d By: Jese Velez on 07-23-2024 RBC (Bld) [#/Vol] 5.31 10*6/uL 4.6-6.2 [facility] Serum anion gap measurementO rdered By: Jese Velez on 07-23-2024 Anion gap [Moles/Vol] 6 mmol/L 5-15 [facility] Serum globulin measurementOr dered By: Jese Velez on 07-23-2024 Globulin (S) [Mass/Vol] 4.1 g/dL 2.2-4.2 [facility] Serum or plasma alanine recinos otransferase (ALT) measurementOrdered By: Jese Velez on 07-23-2024 ALT [Catalytic activity/Vol] 115 U/L High 16-61 [facility] Serum or plasma albumin summer urement (mass/volume)Ordered By: Jese Velez on 07-23-2024 Albumin [Mass/Vol] 3.8 g/dL 3.2-5.0 [facility] Serum or plasma alkaline nirav sphatase measurementOrdered By: Jese Velez on 07-23-2024 ALP [Catalytic activity/Vol] 135 U/L High 45-117 [facility] Serum or plasma calcium summer urement (mass/volume)Ordered By: Jese Velez on 07-23-2024 Calcium [Mass/Vol] 9.6 mg/dL 8.5-10.1 [facility] Serum or plasma creatinine m easurement (mass/volume)Ordered By: Jese Velez on 07-23-2024 Creatinine [Mass/Vol] 1.33 mg/dL High 0.70-1.30 [facility] Comment on above: The validity of the calculated GFR & GFRAA in patients over 70 years has not been determined. Clinical correlation is essential. Serum or plasma urea nitroge n measurement (mass/volume)Ordered By: Jese Velez on 07-23-2024 Urea nitrogen [Mass/Vol] 13 mg/dL 7-18 [facility] Sodium levelOrdered By: Jese Velez on 07-23-2024 Sodium [Moles/Vol] 141 mmol/L 136-145 [facility] Total proteinOrdered By: Nerissa Velez on 07-23-2024 Protein [Mass/Vol] 7.9 g/dL 6.4-8.2 [facility] White blood cell (WBC) count Ordered By: Jese Velez on 07-23-2024 WBC (Bld) [#/Vol] 7.8 10*3/uL 4.4-11.0 [facility] MRCP Abdomen without Contras ton 07-01-2024 MRCP Abdomen without Contrast Normal [facility] Internal Medicine Office Vis iton 06-09-2024 Internal Medicine Office Visit Normal [facility] Knee 3 Viewson 06-09-2024 Knee 3 Views Normal [facility] Angiotensin Convert Enzymeon 06-08-2024 ANGIOT-CONV.ENZ 74 U/L Normal 14-82 [facility] Comment on above: Order Comment: N Result Comment: Perf ormed at: - [facility] [address] [id number] Director: Popeye Joseph PhD, Phone: [phone] Performed By: #### L 4737.1415, L6091.9696, E5986.4258, A8722.0813 ####[facility] [address] [place], [address] HUGO + Protein Elect, Serumon 06-08-2024 Albumin [Mass/Vol] 3.6 g/dL Normal 2.9-4.4 [facility] Comment on above: Order Comment: N Performed By: #### L 3200.0500, L3100.6900, L3400.8000, L3100.3425 ####[facility] [address] [place], [address] Albumin/Globulin [Mass ratio] 1.1 {ratio} Normal 0.7-1.7 [facility] Comment on above: Order Comment: N Performed By: #### L 3200.0500, L3100.6900, L3400.8000, L3100.3425 ####[facility] [address] [place], [address] PAKQQ-0-LUXG 0.3 g/dL Normal 0.0-0.4 [facility] Comment on above: Order Comment: N Performed By: #### L 3200.0500, L3100.6900, L3400.8000, L3100.3425 ####[facility] [address] [place], [address] VLRSU-6-CNKF 0.8 g/dL Normal 0.4-1.0 [facility] Comment on above: Order Comment: N Performed By: #### L 3200.0500, L3100.6900, L3400.8000, L3100.3425 ####[facility] [address] [place], [address] BETA GLOBULIN 1.2 g/dL Normal 0.7-1.3 [facility] Comment on above: Order Comment: N Performed By: #### L 3200.0500, L3100.6900, L3400.8000, L3100.3425 ####[facility] [address] [place], [address] GAMMA GLOBULIN 1.3 g/dL Normal 0.4-1.8 [facility] Comment on above: Order Comment: N Performed By: #### L 3200.0500, L3100.6900, L3400.8000, L3100.3425 ####[facility] [address] [place], [address] Globulin (S) [Mass/Vol] 3.6 g/dL Normal 2.2-3.9 [facility] Comment on above: Order Comment: N Performed By: #### L 3200.0500, L3100.6900, L3400.8000, L3100.3425 ####[facility] [address] [place], [address] HUGO RESULT,S Comment Normal . [facility] Comment on above: Order Comment: N Result Comment: No m onoclonality detected. Performed By: #### L 3200.0500, L3100.6900, L3400.8000, L3100.3425 ####[facility] [address] [place], [address] IMMUNOGLOB A QN 527 mg/dL High 90-386 [facility] Comment on above: Order Comment: N Performed By: #### L 3200.0500, L3100.6900, L3400.8000, L3100.3425 ####[facility] [address] [place], [address] IMMUNOGLOB M QN 27 mg/dL Normal 20-172 [facility] Comment on above: Order Comment: N Performed By: #### L 3200.0500, L3100.6900, L3400.8000, L3100.3425 ####[facility] [address] [place], [address] M-Ron Not Observed Normal Not Observed [facility] Comment on above: Order Comment: N Performed By: #### L 3200.0500, L3100.6900, L3400.8000, L3100.3425 ####[facility] [address] [place], [address] NOTE: Comment Normal . [facility] Comment on above: Order Comment: N Result Comment: Prot ein electrophoresis scan will follow via computer,mail, or health safety specialist delivery. Performed By: #### L 3200.0500, L3100.6900, L3400.8000, L3100.3425 ####[facility] [address] [place], [address] Protein [Mass/Vol] 7.2 g/dL Normal 6.0-8.5 [facility] Comment on above: Order Comment: N Performed By: #### L 3200.0500, L3100.6900, L3400.8000, L3100.3425 ####[facility] [address] [place], [address] IgG Subclasseson 06-08-2024 IgG, SUBCLASS 1 633 mg/dL Normal 248-810 [facility] Comment on above: Order Comment: N Performed By: #### L 3200.0500, L3100.6900, L3400.8000, L3100.3425 ####[facility] [address] [place], [address] IgG, SUBCLASS 2 322 mg/dL Normal 130-555 [facility] Comment on above: Order Comment: N Performed By: #### L 3200.0500, L3100.6900, L3400.8000, L3100.3425 ####[facility] [address] [place], [address] IgG, SUBCLASS 3 82 mg/dL Normal 15-102 [facility] Comment on above: Order Comment: N Performed By: #### L 3200.0500, L3100.6900, L3400.8000, L3100.3425 ####[facility] [address] [place], [address] IgG, SUBCLASS 4 87 mg/dL Normal 2-96 [facility] Comment on above: Order Comment: N Performed By: #### L 3200.0500, L3100.6900, L3400.8000, L3100.3425 ####[facility] [address] [place], [address] IGG,QUANT 1183 mg/dL Normal 603-1613 [facility] Comment on above: Order Comment: N Performed By: #### L 3200.0500, L3100.6900, L3400.8000, L3100.3425 ####[facility] [address] [place], [address] Quantiferon TB-Gold+on 06-08 QFT MITOGEN YOGESH > 10.00 Normal . [facility] Comment on above: Order Comment: N Performed By: #### L 3200.0500, L3100.6900, L3400.8000, L3100.3425 ####[facility] [address] [place], [address] QFT NIL VALUE 0.04 IU/mL Normal . [facility] Comment on above: Order Comment: N Performed By: #### L 3200.0500, L3100.6900, L3400.8000, L3100.3425 ####[facility] [address] [place], [address] QFT TB GOLD+ Comment Normal . [facility] Comment on above: Order Comment: N Result [...] By: #### L 3200.0500, L3100.6900, L3400.8000, L3100.3425 ####[facility] [address] [place], [address] QFT TB POS CRIT Negative Normal Negative [facility] Comment on above: Order Comment: N Result [...] By: #### L 3200.0500, L3100.6900, L3400.8000, L3100.3425 ####[facility] [address] [place], [address] QFT TB1+ AG YOGESH 0.04 IU/mL Normal . [facility] Comment on above: Order Comment: N Performed By: #### L 3200.0500, L3100.6900, L3400.8000, L3100.3425 ####[facility] [address] [place], [address] QFT TB2+ AG YOGESH 0.06 IU/mL Normal . [facility] Comment on above: Order Comment: N Performed By: #### L 3200.0500, L3100.6900, L3400.8000, L3100.3425 ####[facility] [address] [place], [address] Abdomen without IV Contrasto n 05-28-2024 Abdomen without IV Contrast Normal [facility] Operative Reporton Operative Report Normal [facility] Trichrome (control)on 2023 Trichrome (control) Normal [facility] Comment on above: Performed By: #### P TRI ####[facility] [address] [place], [address] Partial Thromboplast Timeon 05-26-2024 aPTT Coag (Bld) [Time] 25.3 s Normal 24.1-36.2 [facility] Comment on above: Performed By: #### L 300.3900, L100.1900, L300.4310 ####[facility] [address] [place], [address] Platelet Counton 05-26-2024 Platelets (Bld) [#/Vol] 268 10*3/uL Normal 150-450 [facility] Comment on above: Performed By: #### L 300.3900, L100.1900, L300.4310 ####[facility] [address] [place], [address] Prothrombin Time w/INRon INR Coag (PPP) [Relative time] 0.9 {INR} Normal [facility] Comment on above: Performed By: #### L 300.3900, L100.1900, L300.4310 ####[facility] [address] [place], [address] PT Coag (PPP) [Time] 12.6 s Normal 11.7-14.[address] [facility] Comment on above: Performed By: #### L 300.3900, L100.1900, L300.4310 ####[facility] [address] [place], [address] L2100.0000on 05-05-2024 ACCA 36 units Normal 0-90 [facility] Comment on above: Result Comment: Nega tive: <80 Equivocal: 80-90 Positive: >90 Performed By: #### L 2100.0000, L100.0100, L500.4050 ####[facility] [address] [place], [address] ALCA 24 units Normal 0-60 [facility] Comment on above: Result Comment: Nega tive:<55 Equivocal: 55-60 Positive: >60 Performed By: #### L 2100.0000, L100.0100, L500.4050 ####[facility] [address] [place], [address] AMCA 0 units Normal 0-100 [facility] Comment on above: Result Comment: Nega tive: <90 Equivocal: 90-100 Positive: >100 This test was developed and its performance characteristics determined by [facility]. It has not been cleared or approved by the Food and Drug Administration. The FDA has determined that such clearance or approval is not necessary. Performed By: #### L 2100.0000, L100.0100, L500.4050 ####[facility] [address] [place], [address] Atypical pANCA Positive Abnormal Negative [facility] Comment on above: Performed By: #### L 2100.0000, L100.0100, L500.4050 ####[facility] [address] [place], [address] COMMENT Comment Abnormal . [facility] Comment on above: Result Comment: Sugg estive of Ulcerative ColitisPerformed at: [facility] [address] [id number] Director: Alison Ray MD, Phone: [phone] Performed By: #### L 2100.0000, L100.0100, L500.4050 ####[facility] [address] [place], [address] Makenna 16 units Normal 0-50 [facility] Comment on above: Result Comment: Nega tive: <45 Equivocal: 45-50 Positive: >50 Performed By: #### L 2100.0000, L100.0100, L500.4050 ####[facility] [address] [place], [address] CBC W/Diff, Automatedon 11-0 Absolute Lymph 1.61 X10 3/uL Normal 0.83-4.51 [facility] Comment on above: Performed By: #### L 2100.0000, L100.0100, L500.4050 ####[facility] [address] [place], [address] Absolute Neut 4.3 X10 3/uL Normal 2.0-7.7 [facility] Comment on above: Performed By: #### L 2100.0000, L100.0100, L500.4050 ####[facility] [address] [place], [address] Basophils/100 WBC (Bld) 0.7 % Normal 0-1 [facility] Comment on above: Performed By: #### L 2100.0000, L100.0100, L500.4050 ####[facility] [address] [place], [address] Eosinophils/100 WBC (Bld) 4.5 % Normal 0-5 [facility] Comment on above: Performed By: #### L 2100.0000, L100.0100, L500.4050 ####[facility] [address] [place], [address] Erythrocyte distribution width (RBC) [Ratio] 12.1 % Normal 11.6-14.6 [facility] Comment on above: Performed By: #### L 2100.0000, L100.0100, L500.4050 ####[facility] [address] [place], [address] Hematocrit (Bld) [Volume fraction] 46.9 % Normal 40-54 [facility] Comment on above: Performed By: #### L 2100.0000, L100.0100, L500.4050 ####[facility] [address] [place], [address] Hemoglobin (Bld) [Mass/Vol] 15.9 g/dL Normal 13.0-16.5 [facility] Comment on above: Performed By: #### L 2100.0000, L100.0100, L500.4050 ####[facility] [address] [place], [address] IG% 0.300 Normal 0.0-0.9 [facility] Comment on above: Result Comment: IG% - Immature Granulocytes (promyelocytes, myelocytes andmetamyelocytes) > 1% indicates that a LEFT SHIFT is Present. Performed By: #### L 2100.0000, L100.0100, L500.4050 ####[facility] [address] [place], [address] Lymphocytes/100 WBC (Bld) 23.6 % Normal 19-41 [facility] Comment on above: Performed By: #### L 2100.0000, L100.0100, L500.4050 ####[facility] [address] [place], [address] MCH (RBC) [Entitic mass] 30.1 pg Normal 27.0-32.0 [facility] Comment on above: Performed By: #### L 2100.0000, L100.0100, L500.4050 ####[facility] [address] [place], [address] MCHC (RBC) [Mass/Vol] 33.9 g/dL Normal 32-36 [facility] Comment on above: Performed By: #### L 2100.0000, L100.0100, L500.4050 ####[facility] [address] [place], [address] MCV (RBC) [Entitic vol] 88.8 fL Normal 80-94 [facility] Comment on above: Performed By: #### L 2100.0000, L100.0100, L500.4050 ####[facility] [address] [place], [address] Monocytes/100 WBC (Bld) 7.8 % Normal 0-10 [facility] Comment on above: Performed By: #### L 2100.0000, L100.0100, L500.4050 ####[facility] [address] [place], [address] Neutrophils/100 WBC (Bld) 63.1 % Normal 47-70 [facility] Comment on above: Performed By: #### L 2100.0000, L100.0100, L500.4050 ####[facility] [address] [place], [address] Nucleated RBC (Bld) [#/Vol] 0 10*3/uL Normal 0-5 [facility] Comment on above: Performed By: #### L 2100.0000, L100.0100, L500.4050 ####[facility] [address] [place], [address] Platelet mean volume (Bld) [Entitic vol] 9.1 fL Normal 6.2-12.0 [facility] Comment on above: Performed By: #### L 2100.0000, L100.0100, L500.4050 ####[facility] [address] [place], [address] Platelets (Bld) [#/Vol] 271 10*3/uL Normal 150-450 [facility] Comment on above: Performed By: #### L 2100.0000, L100.0100, L500.4050 ####[facility] [address] [place], [address] RBC (Bld) [#/Vol] 5.28 10*6/uL Normal 4.6-6.2 [facility] Comment on above: Performed By: #### L 2100.0000, L100.0100, L500.4050 ####[facility] [address] [place], [address] RDW SD 39.5 fl Normal 35.1-43.9 [facility] Comment on above: Performed By: #### L 2100.0000, L100.0100, L500.4050 ####[facility] [address] [place], [address] WBC (Bld) [#/Vol] 6.8 10*3/uL Normal 4.4-11.0 [facility] Comment on above: Performed By: #### L 2100.0000, L100.0100, L500.4050 ####[facility] [address] [place], [address] Comprehensive Metabolic Prof ilon 04-30-2024 Albumin [Mass/Vol] 3.6 g/dL Normal 3.2-5.0 [facility] Comment on above: Performed By: #### L 2100.0000, L100.0100, L500.4050 ####[facility] [address] [place], [address] Albumin/Globulin [Mass ratio] 0.9 {ratio} Normal 0.9-2.4 [facility] Comment on above: Performed By: #### L 2100.0000, L100.0100, L500.4050 ####[facility] [address] [place], [address] ALK P 121 U/L High 45-117 [facility] Comment on above: Performed By: #### L 2100.0000, L100.0100, L500.4050 ####[facility] [address] [place], [address] ALT [Catalytic activity/Vol] 125 U/L High 16-61 [facility] Comment on above: Performed By: #### L 2100.0000, L100.0100, L500.4050 ####[facility] [address] [place], [address] AST [Catalytic activity/Vol] 50 U/L High 15-37 [facility] Comment on above: Performed By: #### L 2100.0000, L100.0100, L500.4050 ####[facility] [address] [place], [address] Bilirubin [Mass/Vol] 0.70 mg/dL Normal 0.20-1.[address] [facility] Comment on above: Result Comment: For patients on eltrombopag therapy, use of Dimension [place] TBIL is not recommended. Performed By: #### L 2100.0000, L100.0100, L500.4050 ####[facility] [address] [place], [address] BUN/CRE 12.8 RATIO Normal 10-20 [facility] Comment on above: Performed By: #### L 2100.0000, L100.0100, L500.4050 ####[facility] [address] [place], [address] CA,Total 9.3 mg/dL Normal 8.5-10.1 [facility] Comment on above: Performed By: #### L 2100.0000, L100.0100, L500.4050 ####[facility] [address] [place], [address] Chloride [Moles/Vol] 110 mmol/L High 98-[address] [facility] Comment on above: Performed By: #### L 2100.0000, L100.0100, L500.4050 ####[facility] [address] [place], [address] CO2 [Moles/Vol] 26.0 mmol/L Normal 21.0-32.0 [facility] Comment on above: Performed By: #### L 2100.0000, L100.0100, L500.4050 ####[facility] [address] [place], [address] Creatinine [Mass/Vol] 1.17 mg/dL Normal 0.70-1.30 [facility] Comment on above: Result Comment: The validity of the calculated GFR GFRAA in patients over70 years has not been determined. Clinical correlation isessential. Performed By: #### L 2100.0000, L100.0100, L500.4050 ####[facility] [address] [place], [address] EST GFR - AA 93 mL/min Normal >60 [facility] Comment on above: Result Comment: Afri can Prydeinig GFR Calc Performed By: #### L 2100.0000, L100.0100, L500.4050 ####[facility] [address] [place], [address] GAP 5 Normal 5-15 [facility] Comment on above: Performed By: #### L 2100.0000, L100.0100, L500.4050 ####[facility] [address] [place], [address] GFR/1.73 sq M.predicted among non-blacks MDRD (S/P/Bld) [Vol rate/Area] 77 mL/min/{1.73_m2} Normal >60 [facility] Comment on above: Result Comment: Non- GFR Calc Performed By: #### L 2100.0000, L100.0100, L500.4050 ####[facility] [address] [place], [address] Globulin (S) [Mass/Vol] 3.8 g/dL Normal 2.2-4.2 [facility] Comment on above: Performed By: #### L 2100.0000, L100.0100, L500.4050 ####[facility] [address] [place], [address] Glucose [Mass/Vol] 109 mg/dL High 74-106 [facility] Comment on above: Result Comment: Fast ing Glucose result from 100 to 125 mg/dLsuggests IMPAIRED HOMEOSTASIS per A.D.A. criteria. Performed By: #### L 2100.0000, L100.0100, L500.4050 ####[facility] [address] [place], [address] Potassium [Moles/Vol] 4.2 mmol/L Normal 3.5-5.1 [facility] Comment on above: Performed By: #### L 2100.0000, L100.0100, L500.4050 ####[facility] [address] [place], [address] Sodium [Moles/Vol] 140 mmol/L Normal 136-145 [facility] Comment on above: Performed By: #### L 2100.0000, L100.0100, L500.4050 ####[facility] [address] [place], [address] T PROT 7.4 g/dL Normal 6.4-8.2 [facility] Comment on above: Performed By: #### L 2100.0000, L100.0100, L500.4050 ####[facility] [address] [place], [address] Urea nitrogen [Mass/Vol] 15 mg/dL Normal 7-18 [facility] Comment on above: Performed By: #### L 2100.0000, L100.0100, L500.4050 ####[facility] [address] [place], [address] Gastroenterology Visit Repor ton 04-30-2024 Gastroenterology Visit Report Normal [facility] Protein+Creatinine Ratio,Uri neon 04-29-2024 PROT:CRE RATIO 74 mg/g CRE Normal 0-200 [facility] Comment on above: Performed By: #### L 501.0900 ####[facility] [address], [address] Protein (U) [Mass/Vol] 21.6 mg/dL High <11.9 [facility] Comment on above: Performed By: #### L 501.0900 ####[facility] [address] [place], [address] UR CREAT 291.00 mg/dL Normal NO RANGE EST. [facility] Comment on above: Performed By: #### L 501.0900 ####[facility] [address] [place], [address] Enterography Abd/Kurt 04-14 Enterography Abd/Pel Normal [facility] Internal Medicine Office Vis iton 03-24-2024 Internal Medicine Office Visit Normal [facility] Colonoscopy Reporton 024 Colonoscopy Report Normal [facility] MR/POSTOP.ANEon 03-09-2024 MR/POSTOP.ANE Normal [facility] MR/GODBYTIQ6ik 03-09-2024 MR/POSTOPAN2 Normal [facility] Surgery Specimen Level Viky 03-09-2024 Surgery Specimen Level IV Normal [facility] Comment on above: Performed By: #### P SUIV ####[facility] [address] [place], [address] Surgery Visit Reporton 03-02 Surgery Visit Report Normal [facility] CBC W/Diff, Automatedon 01-29 Absolute Lymph 1.21 X10 3/uL Normal 0.83-4.51 [facility] Comment on above: Performed By: #### L 100.0100, L500.4050 ####[facility] [address] [place], [address] Absolute Neut 14.0 X10 3/uL High 2.0-7.7 [facility] Comment on above: Performed By: #### L 100.0100, L500.4050 ####[facility] [address] [place], [address] Basophils/100 WBC (Bld) 0.1 % Normal 0-1 [facility] Comment on above: Performed By: #### L 100.0100, L500.4050 ####[facility] [address] [place], [address] Eosinophils/100 WBC (Bld) 0.0 % Normal 0-5 [facility] Comment on above: Performed By: #### L 100.0100, L500.4050 ####[facility] [address] [place], [address] Erythrocyte distribution width (RBC) [Ratio] 12.1 % Normal 11.6-14.6 [facility] Comment on above: Performed By: #### L 100.0100, L500.4050 ####[facility] [address] [place], [address] Hematocrit (Bld) [Volume fraction] 46.9 % Normal 40-54 [facility] Comment on above: Performed By: #### L 100.0100, L500.4050 ####[facility] [address] [place], [address] Hemoglobin (Bld) [Mass/Vol] 16.0 g/dL Normal 13.0-16.5 [facility] Comment on above: Performed By: #### L 100.0100, L500.4050 ####[facility] [address] [place], [address] IG% 0.500 Normal 0.0-0.9 [facility] Comment on above: Result Comment: IG% - Immature Granulocytes (promyelocytes, myelocytes andmetamyelocytes) > 1% indicates that a LEFT SHIFT is Present. Performed By: #### L 100.0100, L500.4050 ####[facility] [address] [place], [address] Lymphocytes/100 WBC (Bld) 7.6 % Low 19-41 [facility] Comment on above: Performed By: #### L 100.0100, L500.4050 ####[facility] [address] [place], [address] MCH (RBC) [Entitic mass] 30.7 pg Normal 27.0-32.0 [facility] Comment on above: Performed By: #### L 100.0100, L500.4050 ####[facility] [address] [place], [address] MCHC (RBC) [Mass/Vol] 34.1 g/dL Normal 32-36 [facility] Comment on above: Performed By: #### L 100.0100, L500.4050 ####[facility] [address] [place], [address] MCV (RBC) [Entitic vol] 89.8 fL Normal 80-94 [facility] Comment on above: Performed By: #### L 100.0100, L500.4050 ####[facility] [address] [place], [address] Monocytes/100 WBC (Bld) 3.5 % Normal 0-10 [facility] Comment on above: Performed By: #### L 100.0100, L500.4050 ####[facility] [address] [place], [address] Neutrophils/100 WBC (Bld) 88.3 % High 47-70 [facility] Comment on above: Performed By: #### L 100.0100, L500.4050 ####[facility] [address] [place], [address] Nucleated RBC (Bld) [#/Vol] 0 10*3/uL Normal 0-5 [facility] Comment on above: Performed By: #### L 100.0100, L500.4050 ####[facility] [address] [place], [address] Platelet mean volume (Bld) [Entitic vol] 9.5 fL Normal 6.2-12.0 [facility] Comment on above: Performed By: #### L 100.0100, L500.4050 ####[facility] [address] [place], [address] Platelets (Bld) [#/Vol] 276 10*3/uL Normal 150-450 [facility] Comment on above: Performed By: #### L 100.0100, L500.4050 ####[facility] [address] [place], [address] RBC (Bld) [#/Vol] 5.22 10*6/uL Normal 4.6-6.2 [facility] Comment on above: Performed By: #### L 100.0100, L500.4050 ####[facility] [address] [place], [address] RDW SD 39.8 fl Normal 35.1-43.9 [facility] Comment on above: Performed By: #### L 100.0100, L500.4050 ####[facility] [address] [place], [address] WBC (Bld) [#/Vol] 15.8 10*3/uL High 4.4-11.0 [facility] Comment on above: Performed By: #### L 100.0100, L500.4050 ####[facility] [address] [place], [address] Comprehensive Metabolic Prof [facility] 02-18-2024 Albumin [Mass/Vol] 3.5 g/dL Normal 3.2-5.0 [facility] Comment on above: Performed By: #### L 100.0100, L500.4050 ####[facility] [address] [place], [address] Albumin/Globulin [Mass ratio] 0.8 {ratio} Low 0.9-2.4 [facility] Comment on above: Performed By: #### L 100.0100, L500.4050 ####[facility] [address] [place], [address] ALK P 120 U/L High 45-117 [facility] Comment on above: Performed By: #### L 100.0100, L500.4050 ####[facility] [address] [place], [address] ALT [Catalytic activity/Vol] 130 U/L High 16-61 [facility] Comment on above: Performed By: #### L 100.0100, L500.4050 ####[facility] [address] [place], [address] AST [Catalytic activity/Vol] 55 U/L High 15-37 [facility] Comment on above: Performed By: #### L 100.0100, L500.4050 ####[facility] [address] [place], [address] Bilirubin [Mass/Vol] 0.60 mg/dL Normal 0.20-1.[address] [facility] Comment on above: Result Comment: For patients on eltrombopag therapy, use of Dimension [place] TBIL is not recommended. Performed By: #### L 100.0100, L500.4050 ####[facility] [address] [place], [address] BUN/CRE 11.3 RATIO Normal 10-20 [facility] Comment on above: Performed By: #### L 100.0100, L500.4050 ####[facility] [address] [place], [address] CA,Total 9.9 mg/dL Normal 8.5-10.1 [facility] Comment on above: Performed By: #### L 100.0100, L500.4050 ####[facility] [address] [place], [address] Chloride [Moles/Vol] 106 mmol/L Normal 98-[address] [facility] Comment on above: Performed By: #### L 100.0100, L500.4050 ####[facility] [address] [place], [address] CO2 [Moles/Vol] 26.0 mmol/L Normal 21.0-32.0 [facility] Comment on above: Performed By: #### L 100.0100, L500.4050 ####[facility] [address] [place], [address] Creatinine [Mass/Vol] 1.06 mg/dL Normal 0.70-1.30 [facility] Comment on above: Result Comment: The validity of the calculated GFR GFRAA in patients over70 years has not been determined. Clinical correlation isessential. Performed By: #### L 100.0100, L500.4050 ####[facility] [address] [place], [address] ECRCL 130.25 ml/min Normal [facility] Comment on above: Performed By: #### L 100.0100, L500.4050 ####[facility] [address] [place], [address] EST GFR - AA 105 mL/min Normal >60 [facility] Comment on above: Result Comment: Afri can Prydeinig GFR Calc Performed By: #### L 100.0100, L500.4050 ####[facility] [address] [place], [address] GAP 5 Normal 5-15 [facility] Comment on above: Performed By: #### L 100.0100, L500.4050 ####[facility] [address] [place], [address] GFR/1.73 sq M.predicted among non-blacks MDRD (S/P/Bld) [Vol rate/Area] 87 mL/min/{1.73_m2} Normal >60 [facility] Comment on above: Result Comment: Non- GFR Calc Performed By: #### L 100.0100, L500.4050 ####[facility] [address] [place], [address] Globulin (S) [Mass/Vol] 4.3 g/dL High 2.2-4.2 [facility] Comment on above: Performed By: #### L 100.0100, L500.4050 ####[facility] [address] [place], [address] Glucose [Mass/Vol] 135 mg/dL High 74-106 [facility] Comment on above: Result Comment: Fast ing Glucose result greater than or equal to 126 mg/dLsuggests DIABETES MELLITUS per A.D.A. criteria. Performed By: #### L 100.0100, L500.4050 ####[facility] [address] [place], [address] Potassium [Moles/Vol] 4.1 mmol/L Normal 3.5-5.1 [facility] Comment on above: Performed By: #### L 100.0100, L500.4050 ####[facility] [address] [place], [address] Sodium [Moles/Vol] 137 mmol/L Normal 136-145 [facility] Comment on above: Performed By: #### L 100.0100, L500.4050 ####[facility] [address] [place], [address] T PROT 7.8 g/dL Normal 6.4-8.2 [facility] Comment on above: Performed By: #### L 100.0100, L500.4050 ####[facility] [address] [place], [address] Urea nitrogen [Mass/Vol] 12 mg/dL Normal 7-18 [facility] Comment on above: Performed By: #### L 100.0100, L500.4050 ####[facility] [address] [place], [address] Discharge Instructionon - Discharge Instruction Normal [facility] 12 Lead EKGon 02-17-2024 12 Lead EKG Normal [facility] Abdomen/Pelvis W IV Cont ONL Yon 02-16-2023 Abdomen/Pelvis W IV Cont ONLY Normal [facility] CBC W/Diff, Automatedon 01-29-2023 Absolute Lymph 1.92 X10 3/uL Normal 0.83-4.51 [facility] Comment on above: Performed By: #### L 500.4050, L501.2450, L100.0100 ####[facility] [address] [place], [address] Absolute Neut 6.6 X10 3/uL Normal 2.0-7.7 [facility] Comment on above: Performed By: #### L 500.4050, L501.2450, L100.0100 ####[facility] [address] [place], [address] Basophils/100 WBC (Bld) 0.5 % Normal 0-1 [facility] Comment on above: Performed By: #### L 500.4050, L501.2450, L100.0100 ####[facility] [address] [place], [address] Eosinophils/100 WBC (Bld) 3.1 % Normal 0-5 [facility] Comment on above: Performed By: #### L 500.4050, L501.2450, L100.0100 ####[facility] [address] [place], [address] Erythrocyte distribution width (RBC) [Ratio] 12.1 % Normal 11.6-14.6 [facility] Comment on above: Performed By: #### L 500.4050, L501.2450, L100.0100 ####[facility] [address] [place], [address] Hematocrit (Bld) [Volume fraction] 46.8 % Normal 40-54 [facility] Comment on above: Performed By: #### L 500.4050, L501.2450, L100.0100 ####[facility] [address] [place], [address] Hemoglobin (Bld) [Mass/Vol] 16.5 g/dL Normal 13.0-16.5 [facility] Comment on above: Performed By: #### L 500.4050, L501.2450, L100.0100 ####[facility] [address] [place], [address] IG% 0.300 Normal 0.0-0.9 [facility] Comment on above: Result Comment: IG% - Immature Granulocytes (promyelocytes, myelocytes andmetamyelocytes) > 1% indicates that a LEFT SHIFT is Present. Performed By: #### L 500.4050, L501.2450, L100.0100 ####[facility] [address] [place], [address] Lymphocytes/100 WBC (Bld) 20.2 % Normal 19-41 [facility] Comment on above: Performed By: #### L 500.4050, L501.2450, L100.0100 ####[facility] [address] [place], [address] MCH (RBC) [Entitic mass] 31.3 pg Normal 27.0-32.0 [facility] Comment on above: Performed By: #### L 500.4050, L501.2450, L100.0100 ####[facility] [address] [place], [address] MCHC (RBC) [Mass/Vol] 35.3 g/dL Normal 32-36 [facility] Comment on above: Performed By: #### L 500.4050, L501.2450, L100.0100 ####[facility] [address] [place], [address] MCV (RBC) [Entitic vol] 88.8 fL Normal 80-94 [facility] Comment on above: Performed By: #### L 500.4050, L501.2450, L100.0100 ####[facility] [address] [place], [address] Monocytes/100 WBC (Bld) 6.9 % Normal 0-10 [facility] Comment on above: Performed By: #### L 500.4050, L501.2450, L100.0100 ####[facility] [address] [place], [address] Neutrophils/100 WBC (Bld) 69.0 % Normal 47-70 [facility] Comment on above: Performed By: #### L 500.4050, L501.2450, L100.0100 ####[facility] [address] [place], [address] Nucleated RBC (Bld) [#/Vol] 0 10*3/uL Normal 0-5 [facility] Comment on above: Performed By: #### L 500.4050, L501.2450, L100.0100 ####[facility] [address] [place], [address] Platelet mean volume (Bld) [Entitic vol] 9.5 fL Normal 6.2-12.0 [facility] Comment on above: Performed By: #### L 500.4050, L501.2450, L100.0100 ####[facility] [address] [place], [address] Platelets (Bld) [#/Vol] 273 10*3/uL Normal 150-450 [facility] Comment on above: Performed By: #### L 500.4050, L501.2450, L100.0100 ####[facility] [address] [place], [address] RBC (Bld) [#/Vol] 5.27 10*6/uL Normal 4.6-6.2 [facility] Comment on above: Performed By: #### L 500.4050, L501.2450, L100.0100 ####[facility] [address] [place], [address] RDW SD 39.5 fl Normal 35.1-43.9 [facility] Comment on above: Performed By: #### L 500.4050, L501.2450, L100.0100 ####[facility] [address] [place], [address] WBC (Bld) [#/Vol] 9.5 10*3/uL Normal 4.4-11.0 [facility] Comment on above: Performed By: #### L 500.4050, L501.2450, L100.0100 ####[facility] [address] [place], [address] Cholangiogram/ O R,Initialon 02-17-2024 Cholangiogram/ O R,Initial Normal [facility] Comprehensive Metabolic Prof ilon 02-17-2024 Albumin [Mass/Vol] 3.7 g/dL Normal 3.2-5.0 [facility] Comment on above: Performed By: #### L 500.4050, L501.2450, L100.0100 ####[facility] [address] [place], [address] Albumin/Globulin [Mass ratio] 0.9 {ratio} Normal 0.9-2.4 [facility] Comment on above: Performed By: #### L 500.4050, L501.2450, L100.0100 ####[facility] [address] [place], [address] ALK P 128 U/L High 45-117 [facility] Comment on above: Performed By: #### L 500.4050, L501.2450, L100.0100 ####[facility] [address] [place], [address] ALT [Catalytic activity/Vol] 129 U/L High 16-61 [facility] Comment on above: Performed By: #### L 500.4050, L501.2450, L100.0100 ####[facility] [address] [place], [address] AST [Catalytic activity/Vol] 49 U/L High 15-37 [facility] Comment on above: Performed By: #### L 500.4050, L501.2450, L100.0100 ####[facility] [address] [place], [address] Bilirubin [Mass/Vol] 0.50 mg/dL Normal 0.20-1.[address] [facility] Comment on above: Result Comment: For patients on eltrombopag therapy, use of Dimension [place] TBIL is not recommended. Performed By: #### L 500.4050, L501.2450, L100.0100 ####[facility] [address] [place], [address] BUN/CRE 9.8 RATIO Low 10-20 [facility] Comment on above: Performed By: #### L 500.4050, L501.2450, L100.0100 ####[facility] [address] [place], [address] CA,Total 9.6 mg/dL Normal 8.5-10.1 [facility] Comment on above: Performed By: #### L 500.4050, L501.2450, L100.0100 ####[facility] [address] [place], [address] Chloride [Moles/Vol] 107 mmol/L Normal 98-[address] [facility] Comment on above: Performed By: #### L 500.4050, L501.2450, L100.0100 ####[facility] [address] [place], [address] CO2 [Moles/Vol] 26.0 mmol/L Normal 21.0-32.0 [facility] Comment on above: Performed By: #### L 500.4050, L501.2450, L100.0100 ####[facility] [address] [place], [address] Creatinine [Mass/Vol] 1.23 mg/dL Normal 0.70-1.30 [facility] Comment on above: Result Comment: The validity of the calculated GFR GFRAA in patients over70 years has not been determined. Clinical correlation isessential. Performed By: #### L 500.4050, L501.2450, L100.0100 ####[facility] [address] [place], [address] ECRCL 112.45 ml/min Normal [facility] Comment on above: Performed By: #### L 500.4050, L501.2450, L100.0100 ####[facility] [address] [place], [address] EST GFR - AA 88 mL/min Normal >60 [facility] Comment on above: Result Comment: Afri can Prydeinig GFR Calc Performed By: #### L 500.4050, L501.2450, L100.0100 ####[facility] [address] [place], [address] GAP 6 Normal 5-15 [facility] Comment on above: Performed By: #### L 500.4050, L501.2450, L100.0100 ####[facility] [address] [place], [address] GFR/1.73 sq M.predicted among non-blacks MDRD (S/P/Bld) [Vol rate/Area] 73 mL/min/{1.73_m2} Normal >60 [facility] Comment on above: Result Comment: Non- GFR Calc Performed By: #### L 500.4050, L501.2450, L100.0100 ####[facility] [address] [place], [address] Globulin (S) [Mass/Vol] 4.2 g/dL Normal 2.2-4.2 [facility] Comment on above: Performed By: #### L 500.4050, L501.2450, L100.0100 ####[facility] [address] [place], [address] Glucose [Mass/Vol] 110 mg/dL High 74-106 [facility] Comment on above: Result Comment: Fast ing Glucose result from 100 to 125 mg/dLsuggests IMPAIRED HOMEOSTASIS per A.D.A. criteria. Performed By: #### L 500.4050, L501.2450, L100.0100 ####[facility] [address] [place], [address] Potassium [Moles/Vol] 4.1 mmol/L Normal 3.5-5.1 [facility] Comment on above: Performed By: #### L 500.4050, L501.2450, L100.0100 ####[facility] [address] [place], [address] Sodium [Moles/Vol] 139 mmol/L Normal 136-145 [facility] Comment on above: Performed By: #### L 500.4050, L501.2450, L100.0100 ####[facility] [address] [place], [address] T PROT 7.9 g/dL Normal 6.4-8.2 [facility] Comment on above: Performed By: #### L 500.4050, L501.2450, L100.0100 ####[facility] [address] [place], [address] Urea nitrogen [Mass/Vol] 12 mg/dL Normal 7-18 [facility] Comment on above: Performed By: #### L 500.4050, L501.2450, L100.0100 ####[facility] [address] [place], [address] Emergency Department Summary on 02-17-2024 Emergency Department Summary Normal [facility] Gallbladderon 02-17-2024 Gallbladder Normal [facility] Lipaseon 02-17-2024 Lipase [Catalytic activity/Vol] 57 U/L Normal 13-75 [facility] Comment on above: Result Comment: Vikram martin note:LIPASE revised reference range effective 22.New Lipase methodology. Expected to produce lower valuesthan the previous assay method.NEW Reference Range: 13 - 75 U/L Performed By: #### L 500.4050, L501.2450, L100.0100 ####[facility] [address] [place], [address] MR/POSTOP.ANEon 02-17-2024 MR/POSTOP.ANE Normal [facility] MR/VUMAMYEC2md 02-17-2024 MR/POSTOPAN2 Normal [facility] Operative Reporton Operative Report Normal [facility] Surgery Specimen Level IIIon 02-17-2024 Surgery Specimen Level III Normal [facility] Comment on above: Performed By: #### P SUIII ####[facility] [address] [place], [address] Urinalysis, Completeon 02-16 WBC 0-5 SEEN Normal 0-5 [facility] Comment on above: Order Comment: COLLE CTOR TO SPECIFY Performed By: #### L 400.0001 ####[facility] [address] [place], [address] BACTERIA 0 SEEN Normal None Seen [facility] Comment on above: Order Comment: COLLE CTOR TO SPECIFY Performed By: #### L 400.0001 ####[facility] [address] [place], [address] EPI,SQUAMOUS 0 SEEN Normal 0-5 [facility] Comment on above: Order Comment: COLLE CTOR TO SPECIFY Performed By: #### L 400.0001 ####[facility] [address] [place], [address] Mucus Ql (Urine sed) 0 SEEN Normal [facility] Comment on above: Order Comment: NICHELLE CTOR TO SPECIFY Performed By: #### L 400.0001 ####[facility] [address] [place], [address] RBC 0 SEEN Normal 0-5 [facility] Comment on above: Order Comment: NICHELLE CTOR TO SPECIFY Performed By: #### L 400.0001 ####[facility] [address] [place], [address] CBC W/Diff, Automatedon 01-28 Absolute Lymph 2.84 X10 3/uL Normal 0.83-4.51 [facility] Comment on above: Performed By: #### L 500.4050, L501.2450, L100.0100 ####[facility] [address] [place], [address] Absolute Neut 6.0 X10 3/uL Normal 2.0-7.7 [facility] Comment on above: Performed By: #### L 500.4050, L501.2450, L100.0100 ####[facility] [address] [place], [address] Basophils/100 WBC (Bld) 0.6 % Normal 0-1 [facility] Comment on above: Performed By: #### L 500.4050, L501.2450, L100.0100 ####[facility] [address] [place], [address] Eosinophils/100 WBC (Bld) 4.2 % Normal 0-5 [facility] Comment on above: Performed By: #### L 500.4050, L501.2450, L100.0100 ####[facility] [address] [place], [address] Erythrocyte distribution width (RBC) [Ratio] 11.9 % Normal 11.6-14.6 [facility] Comment on above: Performed By: #### L 500.4050, L501.2450, L100.0100 ####[facility] [address] [place], [address] Hematocrit (Bld) [Volume fraction] 49.8 % Normal 40-54 [facility] Comment on above: Performed By: #### L 500.4050, L501.2450, L100.0100 ####[facility] [address] [place], [address] Hemoglobin (Bld) [Mass/Vol] 17.2 g/dL High 13.0-16.5 [facility] Comment on above: Performed By: #### L 500.4050, L501.2450, L100.0100 ####[facility] [address] [place], [address] IG% 0.300 Normal 0.0-0.9 [facility] Comment on above: Result Comment: IG% - Immature Granulocytes (promyelocytes, myelocytes andmetamyelocytes) > 1% indicates that a LEFT SHIFT is Present. Performed By: #### L 500.4050, L501.2450, L100.0100 ####[facility] [address] [place], [address] Lymphocytes/100 WBC (Bld) 28.1 % Normal 19-41 [facility] Comment on above: Performed By: #### L 500.4050, L501.2450, L100.0100 ####[facility] [address] [place], [address] MCH (RBC) [Entitic mass] 30.6 pg Normal 27.0-32.0 [facility] Comment on above: Performed By: #### L 500.4050, L501.2450, L100.0100 ####[facility] [address] [place], [address] MCHC (RBC) [Mass/Vol] 34.5 g/dL Normal 32-36 [facility] Comment on above: Performed By: #### L 500.4050, L501.2450, L100.0100 ####[facility] [address] [place], [address] MCV (RBC) [Entitic vol] 88.5 fL Normal 80-94 [facility] Comment on above: Performed By: #### L 500.4050, L501.2450, L100.0100 ####[facility] [address] [place], [address] Monocytes/100 WBC (Bld) 7.0 % Normal 0-10 [facility] Comment on above: Performed By: #### L 500.4050, L501.2450, L100.0100 ####[facility] [address] [place], [address] Neutrophils/100 WBC (Bld) 59.8 % Normal 47-70 [facility] Comment on above: Performed By: #### L 500.4050, L501.2450, L100.0100 ####[facility] [address] [place], [address] Nucleated RBC (Bld) [#/Vol] 0 10*3/uL Normal 0-5 [facility] Comment on above: Performed By: #### L 500.4050, L501.2450, L100.0100 ####[facility] [address] [place], [address] Platelet mean volume (Bld) [Entitic vol] 9.3 fL Normal 6.2-12.0 [facility] Comment on above: Performed By: #### L 500.4050, L501.2450, L100.0100 ####[facility] [address] [place], [address] Platelets (Bld) [#/Vol] 284 10*3/uL Normal 150-450 [facility] Comment on above: Performed By: #### L 500.4050, L501.2450, L100.0100 ####[facility] [address] [place], [address] RBC (Bld) [#/Vol] 5.63 10*6/uL Normal 4.6-6.2 [facility] Comment on above: Performed By: #### L 500.4050, L501.2450, L100.0100 ####[facility] [address] [place], [address] RDW SD 39.0 fl Normal 35.1-43.9 [facility] Comment on above: Performed By: #### L 500.4050, L501.2450, L100.0100 ####[facility] [address] [place], [address] WBC (Bld) [#/Vol] 10.1 10*3/uL Normal 4.4-11.0 [facility] Comment on above: Performed By: #### L 500.4050, L501.2450, L100.0100 ####[facility] [address] [place], [address] Comprehensive Metabolic Prof [facility] 02-15-2024 Albumin [Mass/Vol] 3.9 g/dL Normal 3.2-5.0 [facility] Comment on above: Performed By: #### L 500.4050, L501.2450, L100.0100 ####[facility] [address] [place], [address] Albumin/Globulin [Mass ratio] 0.9 {ratio} Normal 0.9-2.4 [facility] Comment on above: Performed By: #### L 500.4050, L501.2450, L100.0100 ####[facility] [address] [place], [address] ALK P 146 U/L High 45-117 [facility] Comment on above: Performed By: #### L 500.4050, L501.2450, L100.0100 ####[facility] [address] [place], [address] ALT [Catalytic activity/Vol] 147 U/L High 16-61 [facility] Comment on above: Performed By: #### L 500.4050, L501.2450, L100.0100 ####[facility] [address] [place], [address] AST [Catalytic activity/Vol] 58 U/L High 15-37 [facility] Comment on above: Performed By: #### L 500.4050, L501.2450, L100.0100 ####[facility] [address] [place], [address] Bilirubin [Mass/Vol] 0.30 mg/dL Normal 0.20-1.[address] [facility] Comment on above: Result Comment: For patients on eltrombopag therapy, use of Dimension [place] TBIL is not recommended. Performed By: #### L 500.4050, L501.2450, L100.0100 ####[facility] [address] [place], [address] BUN/CRE 9.1 RATIO Low 10-20 [facility] Comment on above: Performed By: #### L 500.4050, L501.2450, L100.0100 ####[facility] [address] [place], [address] CA,Total 9.8 mg/dL Normal 8.5-10.1 [facility] Comment on above: Performed By: #### L 500.4050, L501.2450, L100.0100 ####[facility] [address] [place], [address] Chloride [Moles/Vol] 109 mmol/L High 98-[address] [facility] Comment on above: Performed By: #### L 500.4050, L501.2450, L100.0100 ####[facility] [address] [place], [address] CO2 [Moles/Vol] 28.0 mmol/L Normal 21.0-32.0 [facility] Comment on above: Performed By: #### L 500.4050, L501.2450, L100.0100 ####[facility] [address] [place], [address] Creatinine [Mass/Vol] 1.10 mg/dL Normal 0.70-1.30 [facility] Comment on above: Result Comment: The validity of the calculated GFR GFRAA in patients over70 years has not been determined. Clinical correlation isessential. Performed By: #### L 500.4050, L501.2450, L100.0100 ####[facility] [address] [place], [address] ECRCL 125.43 ml/min Normal [facility] Comment on above: Performed By: #### L 500.4050, L501.2450, L100.0100 ####[facility] [address] [place], [address] EST GFR - AA 100 mL/min Normal >60 [facility] Comment on above: Result Comment: Afri can Prydeinig GFR Calc Performed By: #### L 500.4050, L501.2450, L100.0100 ####[facility] [address] [place], [address] GAP 5 Normal 5-15 [facility] Comment on above: Performed By: #### L 500.4050, L501.2450, L100.0100 ####[facility] [address], [address] GFR/1.73 sq M.predicted among non-blacks MDRD (S/P/Bld) [Vol rate/Area] 83 mL/min/{1.73_m2} Normal >60 [facility] Comment on above: Result Comment: Non- GFR Calc Performed By: #### L 500.4050, L501.2450, L100.0100 ####[facility] [address] [place], [address] Globulin (S) [Mass/Vol] 4.2 g/dL Normal 2.2-4.2 [facility] Comment on above: Performed By: #### L 500.4050, L501.2450, L100.0100 ####[facility] [address] [place], [address] Glucose [Mass/Vol] 99 mg/dL Normal 74-106 [facility] Comment on above: Performed By: #### L 500.4050, L501.2450, L100.0100 ####[facility] [id number] [place], [address] Potassium [Moles/Vol] 3.7 mmol/L Normal 3.5-5.1 [facility] Comment on above: Performed By: #### L 500.4050, L501.2450, L100.0100 ####[facility] [id number] [place], [address] Sodium [Moles/Vol] 142 mmol/L Normal 136-145 [facility] Comment on above: Performed By: #### L 500.4050, L501.2450, L100.0100 ####[facility] [id number] [place] [place], [address] T PROT 8.1 g/dL Normal 6.4-8.2 [facility] Comment on above: Performed By: #### L 500.4050, L501.2450, L100.0100 ####[facility] [address] [place], [address] Urea nitrogen [Mass/Vol] 10 mg/dL Normal 7-18 [facility] Comment on above: Performed By: #### L 500.4050, L501.2450, L100.0100 ####[facility] [address] [place], [address] Emergency Department Summary on 02-15-2024 Emergency Department Summary Normal [facility] Lipaseon 02-15-2024 Lipase [Catalytic activity/Vol] 58 U/L Normal 13-75 [facility] Comment on above: Result Comment: Vikram martin note:LIPASE revised reference range effective 22.New Lipase methodology. Expected to produce lower valuesthan the previous assay method.NEW Reference Range: 13 - 75 U/L Performed By: #### L 500.4050, L501.2450, L100.0100 ####[facility] [address] [place], [address] Urinalysis, Completeon 02-14 EPI,SQUAMOUS 0-5 SEEN Normal 0-5 [facility] Comment on above: Order Comment: CLEAN CATCH Performed By: #### L 400.0001 ####[facility] [address] [place], [address] WBC 0-5 SEEN Normal 0-5 [facility] Comment on above: Order Comment: CLEAN CATCH Performed By: #### L 400.0001 ####[facility] [address] [place], [address] BACTERIA 0 SEEN Normal None Seen [facility] Comment on above: Order Comment: CLEAN CATCH Performed By: #### L 400.0001 ####[facility] [address] [place], [address] Mucus Ql (Urine sed) 0 SEEN Normal [facility] Comment on above: Order Comment: CLEAN CATCH Performed By: #### L 400.0001 ####[facility] [address] [place], [address] RBC 0 SEEN Normal 0-5 [facility] Comment on above: Order Comment: CLEAN CATCH Performed By: #### L 400.0001 ####[facility] [address] [place], [place], [address] Elastography Parenchyma/Orga non 02-12-2024 Elastography Parenchyma/Organ Normal [facility] L7000.0750on 02-10-2024 P ELASTASE,FECA > 800 Normal >200 [facility] Comment on above: Result Comment: Resu lt Units: ug Elast./g Severe Pancreatic Insufficiency: <100 Moderate Pancreatic Insufficiency: 100 - 200 Normal: >200Performed at: [facility] [id number] Director: Alison Ray MD, Phone: [phone] Performed By: #### M 100.0605, L7000.0750, L7000.0700 ####[facility] [address] [place], [address] Calprotectin, Stoolon [address] 191 ug/g Abnormal 0-120 [facility] Comment on above: Result Comment: Conc entration Interpretation Follow-Up< 5 - 50 ug/g Normal None>50 -120 ug/g Borderline Re-evaluate in 4-6 weeks >120 ug/g Abnormal Repeat as clinically indicatedPerformed at: [facility] [employer] [facility] [id number] Director: Alison Ray MD, Phone: [phone] Performed By: #### M 100.0605, L7000.0750, L7000.0700 ####[facility] [address], [address] EGD Reporton 02-03-2024 EGD Report Normal [facility] H Pylori (initial)on 024 H Pylori (initial) Normal [facility] Comment on above: Performed By: #### P H.PYLORI ####[facility] [address] [place], [place], [address] Hemoglobin A1con 02-03-2024 HbA1c (Bld) [Mass fraction] 5.6 % Normal 3.8-5.6 [facility] Comment on above: Result Comment: Norm al < 5.7 % Prediabetic 5.7 - 6.4 % Diabetic >or= 6.5 % Please note range changes. Performed By: #### L 501.9985 ####[facility] [address] [place], [place], [address] MR/POSTOP.ANEon 02-03-2024 MR/POSTOP.ANE Normal [facility] MR/[id number] 02-03-2024 MR/POSTOPAN2 Normal [facility] Special Stain Group Ion Special Stain Group I Normal [facility] Comment on above: Performed By: #### P SSI ####[facility] [address] [place], [place], [address] Stool Lactoferrin/WBCon WBCST Normal Reference Ran ge = Negative Fecal WBC Lactoferrin A Positive: Fecal WBC Lactoferrin present A Normal [facility] Comment on above: Performed By: #### M 100.0605, L7000.0750, L7000.0700 ####[facility] [address] [place], [address] .Auto Diffon 01-04-2024 Basophil, Absolute 0.1 10 3/mcL Normal 0.0-0.2 [facility] ([place]) Comment on above: Performed By: #### G FR, LIP, CBC, ADIFF, CMP, ANEU, MDW #### [facility] [address] [address] Basophils/100 WBC (Bld) 0.6 % Normal 0.0-2.5 A [facility] ([place]) Comment on above: Performed By: #### G FR, LIP, CBC, ADIFF, CMP, ANEU, W #### [address] [address] Eosinophil, Absolute 0.4 10 3/mcL Normal 0.0-0.4 [facility] ([place]) Comment on above: Performed By: #### G FR, LIP, CBC, ADIFF, CMP, ANEU, W #### [address] [address] Eosinophils/100 WBC (Bld) 4.0 % Normal 0.0-7.0 [facility] ([place]) Comment on above: Performed By: #### G FR, LIP, CBC, ADIFF, CMP, ANEU, W #### [address] [address] Lymphocyte, Absolute 2.4 10 3/mcL Normal 0.8-3.9 [facility] ([place]) Comment on above: Performed By: #### G FR, LIP, CBC, ADIFF, CMP, ANEU, W #### [address] [address] Lymphocytes/100 WBC (Bld) 23.7 % Normal 10.0-50.0 [facility] ([place]) Comment on above: Performed By: #### G FR, LIP, CBC, ADIFF, CMP, ANEU, MDW #### [address] [address] Monocyte, Absolute 0.8 10 3/mcL Normal 0.2-1.0 [facility] ([place]) Comment on above: Performed By: #### G FR, LIP, CBC, ADIFF, CMP, ANEU, W #### [address] [address] Monocytes/100 WBC (Bld) 7.6 % Normal 1.7-13.0 A [facility] ([place]) Comment on above: Performed By: #### G FR, LIP, CBC, ADIFF, CMP, ANEU, W #### [address] [address] Neutrophils/100 WBC (Bld) 64.1 % Normal 37.0-80.0 [facility] ([place]) Comment on above: Performed By: #### G FR, LIP, CBC, ADIFF, CMP, CINDY SUMNER #### [address] [address] .GFRon 01-04-2024 GFR Non- 67 ml/min/1.73sqm Normal [facility] ([place]) Comment on above: Result Comment: GFR Population [...] LIP, CBC, ADIFF, CMP, CINDY SUMNER #### [address] [address] GFR 82 ml/min/1.73sqm Normal [facility] ([place]) Comment on above: Result Comment: GFR Population [...] LIP, CBC, ADIFF, CMP, CINDY SUMNER #### [address] [address] .MDWon 01-04-2024 Monocyte Distribution Width 19.58 Normal 0.00-20.00 [facility] ([place]) Comment on above: Result Comment: For ED adult patients suspected of sepsis, MDW<=20.0 does not rule out sepsis or risk of sepsis Performed By: #### G FR, LIP, CBC, ADIFF, CMP, CINDY SUMNER #### [place] [address] .NEUABSon 01-04-2024 Neutrophil, Absolute 6.4 10 3/mcL High 2.9-6.2 [facility] ([place]) Comment on above: Performed By: #### G FR, LIP, CBC, ADIFF, CMP, CINDY SUMNER #### [place] [address] CBCon 01-04-2024 Erythrocyte distribution width (RBC) [Ratio] 13.2 % Normal 11.5-14.5 [facility] ([place]) Comment on above: Performed By: #### G FR, LIP, CBC, ADIFF, BURAK ACHARYA MDW #### [place] [address] Hematocrit (Bld) [Volume fraction] 49.3 % Normal 42.0-52.0 [facility] ([place]) Comment on above: Performed By: #### G FR, LIP, CBC, ADIFF, CMPBURAK MDW #### [place] [address] Hgb 17.4 G/dL Normal 14.0-18.0 [facility] ([place]) Comment on above: Performed By: #### G FR, LIP, CBC, ADIFF, CMPBURAK MDW #### [place] [address] MCH (RBC) [Entitic mass] 31.8 pg High 27.0-31.2 [facility] ([place]) Comment on above: Performed By: #### G FR, LIP, CBC, ADIFF, CMP, CINDY SUMNER #### [address] [address] MCHC 35.3 G/dL Normal 31.8-35.4 [facility] ([place]) Comment on above: Performed By: #### G FR, LIP, CBC, ADIFF, CMP, CINDY SUMNER #### [address] [address] MCV (RBC) [Entitic vol] 90.0 fL Normal 80.0-94.0 A [facility] ([place]) Comment on above: Performed By: #### G FR, LIP, CBC, ADIFF, CMP, CINDY SUMNER #### [address] [address] Platelet 247 10 3/mcL Normal 130-400 [facility] ([place]) Comment on above: Performed By: #### G FR, LIP, CBC, ADIFF, CMP, CINDY SUMNER #### [address] [address] Platelet mean volume (Bld) [Entitic vol] 7.5 fL Normal 7.4-10.4 [facility] ([place]) Comment on above: Performed By: #### G FR, LIP, CBC, ADIFF, CMP, CINDY SUMNER #### [address] [address] RBC 5.48 10 6/mcL Normal 4.04-6.13 [facility] ([place]) Comment on above: Performed By: #### G FR, LIP, CBC, ADIFF, CMP, CINDY SUMNER #### [address] [address] WBC 10.0 10 3/mcL Normal 4.6-10.8 [facility] ([place]) Comment on above: Performed By: #### G FR, LIP, CBC, ADIFF, CMP, CINDY SUMNER #### [address] [address] CMPon 01-04-2024 ALT [Catalytic activity/Vol] 198 U/L High 16-63 [facility] ([place]) Comment on above: Performed By: #### G FR, LIP, CBC, ADIFF, CMP, CINDY SUMNER #### [address] [address] AST [Catalytic activity/Vol] 63 U/L High 10-40 [facility] ([place]) Comment on above: Performed By: #### G FR, LIP, CBC, ADIFF, CMP, CINDY SUMNER #### [address] [address] Bili Total 0.5 mg/dL Normal 0.2-1.0 [facility] ([place]) Comment on above: Result Comment: Use of this assay is not recommended for patients undergoing treatment with eltrombopag due to the potential for falsely elevated results. Performed By: #### G FR, LIP, CBC, ADIFF, CMP, CINDY SUMNER #### [place] [id number] Albumin Level 4.0 G/dL Normal 3.5-5.0 [facility] ([place]) Comment on above: Performed By: #### G FR, LIP, CBC, ADIFF, CMP, CINDY SUMNER #### [address] [address] Albumin/Globulin [Mass ratio] 1.1 {ratio} Normal 1.1-2.5 [facility] ([place]) Comment on above: Performed By: #### G FR, LIP, CBC, ADIFF, CMP, CINDY SUMNER #### [address] [address] ALP [Catalytic activity/Vol] 135 U/L Normal 40-135 [facility] ([place]) Comment on above: Performed By: #### G FR, LIP, CBC, ADIFF, CMP, CINDY SUMNER #### [address] [address] BUN/Creatinine Ratio 14 ratio Normal 7-27 [facility] ([place]) Comment on above: Performed By: #### G FR, LIP, CBC, ADIFF, CMP, CINDY SUMNER #### [address] [address] Calcium [Mass/Vol] 9.8 mg/dL Normal 8.4-10.2 [facility] ([place]) Comment on above: Performed By: #### G FR, LIP, CBC, ADIFF, CMP, CINDY SUMNER #### [address] [address] Chloride [Moles/Vol] 106 mmol/L Normal 98-107 [facility] ([place]) Comment on above: Performed By: #### G FR, LIP, CBC, ADIFF, CMP, CINDY SUMNER #### [address] [address] CO2 [Moles/Vol] 23 mmol/L Normal 22-29 [facility] ([place]) Comment on above: Performed By: #### G FR, LIP, CBC, ADIFF, CMP, CINDY SUMNER #### [address] [address] Creatinine [Mass/Vol] 1.25 mg/dL Normal 0.70-1.30 [facility] ([place]) Comment on above: Performed By: #### G FR, LIP, CBC, ADIFF, CMP, CINDY SUMNER #### [address] [address] Electrolyte Balance 13.0 mEq/L Normal 4.0-15.0 [facility] ([place]) Comment on above: Performed By: #### G FR, LIP, CBC, ADIFF, CMP, CINDY SUMNER #### [address] [address] Globulin 3.7 G/dL Normal [facility] ([place]) Comment on above: Performed By: #### G FR, LIP, CBC, ADIFF, CMP, CINDY SUMNER #### [address] [address] Glucose [Mass/Vol] 128 mg/dL High 70-105 [facility] ([place]) Comment on above: Performed By: #### G FR, LIP, CBC, ADIFF, CMP, CINDY SUMNER #### [address] [address] Potassium [Moles/Vol] 4.1 mmol/L Normal 3.5-5.1 [facility] ([place]) Comment on above: Performed By: #### G FR, LIP, CBC, ADIFF, CMP, ANEU, MDW #### [place] [address] [place], [place] [address] Sodium [Moles/Vol] 142 mmol/L Normal 136-145 [facility] ([place]) Comment on above: Performed By: #### G FR, LIP, CBC, ADIFF, CMP, ANEU, MDW #### [place] [address] [place], [place] [address] Total Protein 7.7 G/dL Normal 6.4-8.2 [facility] ([place]) Comment on above: Performed By: #### G FR, LIP, CBC, ADIFF, CMP, ANEU, MDW #### [address] [address] Urea nitrogen [Mass/Vol] 17 mg/dL Normal 7-18 [facility] ([place]) Comment on above: Performed By: #### G FR, LIP, CBC, ADIFF, CMP, BURAK, MDW #### [address] [address] [address] ABDOMEN/PELVIS W/O CONTRA STon 01-04-2024 CT [...] no abnormal fluid collection in the pelvis. Peritoneum/Retroperiton eum: There is no retroperitoneal lymph node enlargement. [...] 01/04/2024 1:52:07 AM Ordering Provider: JENNIFFER VILLASENOR [facility] ([place]) LABORATORYOrdered By: SYSTEM SYSTEM on 01-04-2024 Albumin BCP dye [Mass/Vol] 4.0 G/dL Normal 3 .5 - 5.0 G/dL AO ADM SS Albumin/Globulin [...] SS Eosinophils/100 WBC (Bld) 4.0 % Normal 0. 0 - 7.0 % AO Workflow SS Erythrocyte [...] SS Lymphocytes/100 WBC (Bld) 23.7 % Normal 10 .0 - 50.0 % AO Workflow SS MCH [...] SS Neutrophils/100 WBC (Bld) 64.1 % Normal 37 .0 - 80.0 % AO Workflow SS Platelet [...] 01-04-2024 Lipase Level 66 U/L Normal 16-77 [facility] ([place]) Comment on above: Performed By: #### G FR, LIP, CBC, ADIFF, CMP, ANEU, MDW #### [address] [address] Absolute lymphocyte countOrd ered By: Neetu Espinoza on 10-15-2023 Lymphocytes Auto (Unsp spec) [#/Vol] 2.25 10*3/uL 0.83-4.51 [facility] Automated lymphocyte count a s percentage of total leukocytesOrdered By: Remus Ungcaroline on 10-15-2023 Lymphocytes/100 WBC Auto (Unsp spec) 20.1 % 19-41 [facility] Basophil percentageOrdered B y: Remus Ungur on 10-15-2023 Basophil percentage 0-5 SEEN /hpf 0-5 [facility] Basophils/100 WBC (Bld) 0.7 % 0-1 [facility] Bilirubin [Mass/Vol] 0.40 mg/dL 0.20-1.[address] [facility] Comment on above: For patients on eltr ombopag therapy, use of Dimension [employer] TBIL is not recommended. Chloride [Moles/Vol] 107 mmol/L 98-[address] [facility] Eosinophils/100 WBC (Bld) 3.7 % 0-5 [facility] Glucose [Mass/Vol] 119 mg/dL 74-106 [facility] Comment on above: Fasting Glucose resu lt from 100 to 125 mg/dL suggests IMPAIRED HOMEOSTASIS per A.D.A. criteria. Hemoglobin (Bld) [Mass/Vol] 16.5 g/dL 13.0-16.5 [facility] Lactate [Moles/Vol] 0.9 mmol/L 0.4-2.0 [facility] Monocytes/100 WBC (Bld) 7.7 % 0-10 [facility] Neutrophils (Bld) [#/Vol] 7.6 10*3/uL 2.0-7.7 [facility] Neutrophils/100 WBC (Bld) 67.6 % 47-70 [facility] Potassium [Moles/Vol] 4.0 mmol/L 3.5-5.1 [facility] Comment on above: Slight Hemolysis, Re sult may be falsely increased. Protein [Mass/Vol] 8.2 g/dL 6.4-8.2 [facility] Sodium [Moles/Vol] 139 mmol/L 136-145 [facility] WBC (Bld) [#/Vol] 11.2 10*3/uL 4.4-11.0 [facility] Bilirubin Test strip Ql (U)O rdered By: Neetu Espinoza on 10-15-2023 Bilirubin Ql (U) Negative Negative [facility] Determination of erythrocyte mean corpuscular volume (MCV)Ordered By: Neetu Espinoza on 10-15-2023 MCV (RBC) [Entitic vol] 87.9 fL 80-94 [facility] Erythrocyte distribution wid th ratioOrdered By: eNetu Espinoza on 10-15-2023 Erythrocyte distribution width (RBC) [Ratio] 12.4 % 11.6-14.6 [facility] Erythrocyte distribution wid th standard deviationOrdered By: Neetu Espinoza on 10-15-2023 Erythrocyte distribution width (RBC) [Entitic vol] 39.7 fL 35.1-43.9 [facility] Hematocrit Auto (Bld) [Volum e fraction]Ordered By: Neetu Espinoza on 10-15-2023 Hematocrit (Bld) [Volume fraction] 48.0 % 40-54 [facility] Immature granulocytes/100 WB C Auto (Bld)Ordered By: Neetu Espinoza on 10-15-2023 Immature granulocytes/100 WBC (Bld) 0.200 % 0.0-0.9 [facility] Comment on above: IG% - Immature Granu locytes (promyelocytes, myelocytes and metamyelocytes) > 1% indicates that a LEFT SHIFT is Present. Ketones Test strip Ql (U)Ord ered By: Neetu Espinoza on 10-15-2023 Ketones Ql (U) 5 mg/dl Negative [facility] Laboratory - Chemistry and C hemistry - challengeOrdered By: Neetu Espinoza on 10-15-2023 Albumin/Globulin [Mass ratio] 1.0 {ratio} 0.9-2.4 [facility] ALP [Catalytic activity/Vol] 118 U/L 45-117 [facility] ALT [Catalytic activity/Vol] 202 U/L 16-61 [facility] CO2 [Moles/Vol] 25.0 mmol/L 21.0-32.0 [facility] Globulin (S) [Mass/Vol] 4.2 g/dL 2.2-4.2 [facility] Lipase [Catalytic activity/Vol] 54 U/L 13-75 [facility] Comment on above: Please note:LIPASE r evised reference range effective 22. New Lipase methodology. Expected to produce lower values than the previous assay method. NEW Reference Range: 13 - 75 U/L Urea nitrogen/Creatinine [Mass ratio] 11.0 mg/mg 10-20 [facility] Laboratory - Hematology and Cell countsOrdered By: [facility] Espinoza on 10-15-2023 MCH (RBC) [Entitic mass] 30.2 pg 27.0-32.0 [facility] MCHC (RBC) [Mass/Vol] 34.4 g/dL 32-36 [facility] Nucleated RBC/100 WBC (Bld) [Ratio] 0 % 0-5 [facility] Platelet mean volume (Bld) [Entitic vol] 9.4 fL 6.2-12.0 [facility] Platelets (Bld) [#/Vol] 276 10*3/uL 150-450 [facility] Mucus LM Ql (Urine sed)Order ed By: Neetu Espinoza on 10-15-2023 Mucus Ql (Urine sed) 0 SEEN /hpf [facility] Nitrite Test strip Ql (U)Ord ered By: Neetu Espinoza on 10-15-2023 Nitrite Ql (U) Negative Negative [facility] No Panel InformationOrdered By: Neetu Espinoza on 10-15-2023 Estimated Creatinine Clearance Calc 96.66 ml/min [facility] Estimated GFR (MDRD) Amer 73 mL/min >60 [facility] Comment on above: GFR Calc Estimated GFR (MDRD) Non-Af Amer 60 mL/min >60 [facility] Comment on above: Non- GFR Calc Urine RBC 0 SEEN /hpf 0-5 [facility] Protein Test strip Ql (U)Ord ered By: Neetu Espinoza on 10-15-2023 Protein Ql (U) 15 mg/dl Negative [facility] RBC Auto (Bld) [#/Vol]Ordere d By: Neetu Espinoza on 10-15-2023 RBC (Bld) [#/Vol] 5.46 10*6/uL 4.6-6.2 [facility] Serum or plasma calcium summer urement (mass/volume)Ordered By: Neetu Espinoza on 10-15-2023 Calcium [Mass/Vol] 9.4 mg/dL 8.5-10.1 [facility] Serum or plasma creatinine m easurement (mass/volume)Ordered By: Neetu Espinoza on 10-15-2023 Creatinine [Mass/Vol] 1.45 mg/dL 0.70-1.30 [facility] Comment on above: The validity of the calculated GFR & GFRAA in patients over 70 years has not been determined. Clinical correlation is essential. Serum or plasma urea nitroge n measurement (mass/volume)Ordered By: Neetu Espinoza on 10-15-2023 Urea nitrogen [Mass/Vol] 16 mg/dL -18 [facility] Squamous epithelial cells de tection in urine sediment by light microscopyOrdered By: Neetu Espinoza on 10-15-2023 Epithelial cells.squamous LM Ql (Urine sed) 0 SEEN /hpf 0-5 [facility] Thin prep Papanicolaou smear with manual screeningOrdered By: Neetu Espinoza on 10-15-2023 Thin prep Papanicolaou smear with manual screening 4.0 g/dL 3.2-5.0 [facility] Thin prep Papanicolaou smear with manual screening 76 U/L 15-37 [facility] Comment on above: Slight Hemolysis, Re sult may be falsely increased. Thin prep Papanicolaou smear with manual screening 7 5-15 [facility] Urine blood detectionOrdered By: Neetu Espinoza on 10-15-2023 RBC Ql (U) Negative Negative [facility] Urine clarityOrdered By: Lexy Espinoza on 10-15-2023 Clarity (U) Clear Clear [facility] Urine color determinationOrd ered By: Neetu Espinoza on 10-15-2023 Color (U) Yellow Yellow [facility] Urine glucose detectionOrder ed By: Neetu Espinoza on 10-15-2023 Glucose Ql (U) Normal mg/dl Normal [facility] Urine leukocyte esterase det ection by dipstickOrdered By: Neetu Espinoza on 10-15-2023 Leukocyte esterase Test strip Ql (U) 25 /ul Negative [facility] Urine pHOrdered By: Neetu Beckham gur on 10-15-2023 pH (U) 7.0 [pH] 5.0 - 8.0 [facility] Urine sediment bacteria coun t by microscopy (number/high power field)Ordered By: Neetu Espinoza on 10-15-2023 Bacteria LM.HPF (Urine sed) [#/Area] 1 /[HPF] None Seen [facility] Urine specific gravity measu rementOrdered By: Neetu Espinoza on 10-15-2023 Specific gravity (U) [Rel density] 1.015 1.002-1.03 0 [facility] Urine urobilinogen measureme ntOrdered By: Neetu Espinoza on 10-15-2023 Urobilinogen Ql (U) 1 mg/dl Normal [facility] Vital Signs Date Time Vital Sign Value Performing Clinician Facility 01-18-2025 13:13-0400 Body height 182.[address] Arun Gonzales DO Work Phone: [facility] 01-18-2025 13:13-0400 Body mass index (BMI) [Ratio] 33.2 kg/m2 Dr. Arun Gonzales DO Work Phone: [facility] 01-18-2025 13:13-0400 Body temperature 97.9 [degF] Dr. Arun Gonzales DO Work Phone: [facility] 01-18-2025 13:13-0400 Body weight 111.[address] Arun Gonzales DO Work Phone: [facility] 01-18-2025 13:13-0400 Diastolic blood pressure 86 mm[Hg] Dr. Arun Gonzales DO Work Phone: [facility] 01-18-2025 13:13-0400 Heart rate 106 /min Dr. Arun Gonzales DO Work Phone: [facility] 01-18-2025 13:13-0400 Respiratory rate 16 /min Dr. Arun Gonzales DO Work Phone: [facility] 01-18-2025 13:13-0400 SaO2% (BldA) [Mass fraction] 97 % Dr. Arun Gonzales DO Work Phone: [facility] 01-18-2025 13:13-0400 Systolic blood pressure 134 mm[Hg] Dr. Arun Gonzales DO Work Phone: [facility] 01-10-2025 19:51-0400 Body temperature 98.4 [degF] Dr. Arun Gonzales DO Work Phone: [facility] 01-10-2025 19:51-0400 Diastolic blood pressure 79 mm[Hg] Dr. Arun Gonzales DO Work Phone: [facility] 01-10-2025 19:51-0400 Heart rate 81 /min Dr. Arun Gonzales DO Work Phone: [facility] 01-10-2025 19:51-0400 Respiratory rate 16 /min Dr. Arun Gonzales DO Work Phone: [facility] 01-10-2025 19:51-0400 SaO2% (BldA) [Mass fraction] 100 % Dr. Arun Gonzales DO Work Phone: [facility] 01-10-2025 19:51-0400 Systolic blood pressure 128 mm[Hg] Dr. Arun Gonzales DO Work Phone: [facility] 01-10-2025 14:48-0400 Body height 182.[address] Arun Gonzales DO Work Phone: [facility] 01-10-2025 14:48-0400 Body mass index (BMI) [Ratio] 34.4 kg/m2 Dr. Arun Gonzales DO Work Phone: [facility] 01-10-2025 14:48-0400 Body weight 114.[address] Arun Gonzales DO Work Phone: [facility] 11-24-2024 11:11-0400 Body height 182.[address] Arun Gonzales DO Work Phone: [facility] 11-24-2024 11:11-0400 Body mass index (BMI) [Ratio] 33.7 kg/m2 Dr. Arun Gonzales DO Work Phone: [facility] 11-24-2024 11:11-0400 Body temperature 97.6 [degF] Dr. Arun Gonzales DO Work Phone: [facility] 11-24-2024 11:11-0400 Body weight 112.[address] Arun Gonzales DO Work Phone: [facility] 11-24-2024 11:11-0400 Diastolic blood pressure 80 mm[Hg] Dr. Arun Gonzales DO Work Phone: [facility] 11-24-2024 11:11-0400 Heart rate 102 /min Dr. Arun Gonzales DO Work Phone: [facility] 11-24-2024 11:11-0400 Respiratory rate 16 /min Dr. Arun Gonzales DO Work Phone: [facility] 11-24-2024 11:11-0400 SaO2% (BldA) [Mass fraction] 96 % Dr. Arun Gonzales DO Work Phone: [facility] 11-24-2024 11:11-0400 Systolic blood pressure 120 mm[Hg] Dr. Arun Gonzales DO Work Phone: [facility] 11-03-2024 11:36-0400 Body height 182.[address] Arun Gonzales DO Work Phone: [facility] 11-03-2024 11:36-0400 Body mass index (BMI) [Ratio] 33.3 kg/m2 Dr. Arun Gonzales DO Work Phone: [facility] 11-03-2024 11:36-0400 Body temperature 97.7 [degF] Dr. Arun Gonzales DO Work Phone: [facility] 11-03-2024 11:36-0400 Body weight 111.[address] Arun Gonzales DO Work Phone: [facility] 11-03-2024 11:36-0400 Diastolic blood pressure 100 mm[Hg] Dr. Arun Gonzales DO Work Phone: [facility] 11-03-2024 11:36-0400 Heart rate 106 /min Dr. Arun Gonzales DO Work Phone: [facility] 11-03-2024 11:36-0400 Respiratory rate 18 /min Dr. Arun Gonzales DO Work Phone: [facility] 11-03-2024 11:36-0400 SaO2% (BldA) [Mass fraction] 96 % Dr. Arun Gonzales DO Work Phone: [facility] 11-03-2024 11:36-0400 Systolic blood pressure 150 mm[Hg] Dr. Arun Gonzales DO Work Phone: [facility] 07-23-2024 18:12-0500 Body temperature 97.2 [degF] Dr. Arun Gonzales DO Work Phone: [facility] 07-23-2024 18:12-0500 Diastolic blood pressure 91 mm[Hg] Dr. Arun Gonzales DO Work Phone: [facility] 07-23-2024 18:12-0500 Heart rate 126 /min Dr. Arun Gonzales DO Work Phone: [facility] 07-23-2024 18:12-0500 Respiratory rate 20 /min Dr. Arun Gonzales DO Work Phone: [facility] 07-23-2024 18:12-0500 SaO2% (BldA) [Mass fraction] 98 % Dr. Arun Gonzales DO Work Phone: [facility] 07-23-2024 18:12-0500 Systolic blood pressure 157 mm[Hg] Dr. Arun Gonzales DO Work Phone: [facility] 07-23-2024 16:49-0500 Body mass index (BMI) [Ratio] 32.8 kg/m2 Dr. Arun Gonzales DO Work Phone: [facility] 07-23-2024 16:49-0500 Body weight 109.[address] Arun Gonzales DO Work Phone: [facility] 01-04-2024 14:00-0400 Heart rate 68 /min JENNIFFER VILLASENOR MD [facility] 01-04-2024 14:00-0400 Systolic Blood Pressure Non-Invasive 155 mm[Hg] JENNIFFER VILLASENOR MD [facility] 01-04-2024 03:27-0400 Diastolic Blood Pressure Non-Invasive 91 mm[Hg] JENNIFFER VILLASENOR MD [facility] 01-04-2024 03:27-0400 Heart rate 56 /min JENNIFFER VILLASENOR MD [facility] 01-04-2024 03:27-0400 Reason For Taking VItal Signs JENNIFFER VILLASENOR MD [facility] 01-04-2024 03:27-0400 Respiratory rate 18 /min JENNIFFER VILLASENOR MD [facility] 01-04-2024 03:27-0400 Systolic Blood Pressure Non-Invasive 137 mm[Hg] JENNIFFER VILLASENOR MD [facility] 01-04-2024 00:51-0400 Body temperature 96.98 [degF] JENNIFFER VILLASENOR MD [facility] 01-04-2024 00:51-0400 Diastolic Blood Pressure Non-Invasive 90 mm[Hg] JENNIFFER VILLASENOR MD [facility] 01-04-2024 00:51-0400 Heart rate 70 /min JENNIFFER VILLASENOR MD [facility] 01-04-2024 00:51-0400 Respiratory rate 20 /min JENNIFFER VILLASENOR MD [facility] 01-04-2024 00:51-0400 Systolic Blood Pressure Non-Invasive 135 mm[Hg] JENNIFFER VILLASENOR MD [facility] 10-15-2023 21:58-0400 Body temperature 98 [degF] [facility] 10-15-2023 21:58-0400 Diastolic blood pressure 50 mm[Hg] [facility] 10-15-2023 21:58-0400 Heart rate 69 /min [facility] 10-15-2023 21:58-0400 Respiratory rate 18 /min [facility] 10-15-2023 21:58-0400 SaO2% (BldA) [Mass fraction] 99 % [facility] 10-15-2023 21:58-0400 Systolic blood pressure 119 mm[Hg] [facility] 10-15-2023 18:29-0400 Body height 182.88 cm [facility] 10-15-2023 18:29-0400 Body mass index (BMI) [Ratio] 33.7 kg/m2 [facility] 10-15-2023 18:29-0400 Body weight 112.94 kg [facility] Encounters Encounter Date Encounter Type Care Provider Facility Start: 02-04-2025 ambulatory Danny Walter Facility:[facility] Start: 02-01-2025 ambulatory Danny Walter Facility:[facility] Start: 01-31-2025 [facility] Start: 01-18-2025 End: 01-18-2025 Patient encounter procedure Danny HAIDER -[facility] Work Phone: Start: 01-18-2025 End: 01-18-[address] Arun Gonzales DO Work Phone: -[facility] Start: 01-10-2025 End: 01-10-2025 Emergency department patient visit Dr. Arun Gonzales DO Work Phone: -Emergency Department Work Phone: Start: 11-24-2024 End: 11-24-[address] Arun Gonzales DO Work Phone: [facility] Work Phone: Start: 11-24-2024 End: 11-24-2024 Patient encounter procedure Danny HAIDER -[facility] Work Phone: Start: 11-24-2024 End: 11-24-2024 Patient encounter procedure Danny HAIDER -[facility] Work Phone: Start: 11-24-2024 End: 11-24-[address] Arun Gonzales DO Work Phone: [facility] Work Phone: Start: 11-24-2024 End: 11-24-2024 ambulatory Danny Walter Facility:[facility] Start: 11-10-2024 End: 11-10-2024 Patient encounter procedure Hina HAIDER -[facility] Work Phone: Start: 11-10-2024 End: 11-10-[address] Arun Gonzales DO Work Phone: [facility] Work Phone: Start: 11-10-2024 End: 11-10-2024 ambulatory Hina Sampson Facility:[facility] Start: 11-03-2024 End: 11-03-2024 Patient encounter procedure Danny HAIDER -[facility] Work Phone: Start: 11-03-2024 End: 11-03-2024 ambulatory Arun Gonzales Facility:[facility] Start: 08-04-2024 End: 08-04-2024 Patient encounter procedure Hina HAIDER -[facility] Work Phone: Start: 08-04-2024 End: 08-04-2024 ambulatory Arun Gonzales Facility:[facility] Start: 08-04-2024 End: 08-04-2024 ambulatory Hina Sampson Facility:[facility] Start: 07-23-2024 End: 07-23-2024 Emergency department patient visit Dr. Gm Maddox DO -Emergency Department Work Phone: Start: 07-01-2024 End: 07-01-2024 ambulatory [facility] Start: 06-09-2024 End: 06-09-2024 ambulatory Arun Gonzales Facility:[facility] Start: 06-09-2024 End: 06-09-2024 ambulatory [facility] Gonzales [facility] Start: 06-04-2024 End: 06-04-2024 ambulatory Hina Sampson Facility:[facility] Start: 05-28-2024 ambulatory Hina Sampson Facili ty:[facility] Start: 05-28-2024 End: 05-28-2024 ambulatory Hina Adrián Facility:[facility] Start: 04-30-2024 End: 04-30-2024 ambulatory Hina Northov Facility:[facility] Start: 04-30-2024 End: 04-30-2024 ambulatory Hina Sampson Facility:[facility] Start: 04-29-2024 End: 04-29-2024 ambulatory Miryam Ohara Facility:[facility] Start: 04-14-2024 End: 04-14-2024 ambulatory Hina Adrián Facility:[facility] Start: 03-24-2024 End: 03-24-2024 ambulatory No Primary Care Physician Facility:[facility] Start: 03-09-2024 ambulatory Rodrigo García Facility :[facility] Start: 03-09-2024 End: 03-09-2024 ambulatory Rodrigo García Facility:[facility] Start: 03-02-2024 End: 03-02-2024 ambulatory Sari HAIDER Facility:[facility] Start: 02-18-2024 ambulatory Rodrigo García Facility :[facility] Start: 02-17-2024 End: 02-18-2024 ambulatory Sumeet Bearden Facility:[facility] Start: 02-15-2024 End: 02-15-2024 Emergency department patient visit Arun Gonzales Facility:[facility] Start: 02-12-2024 End: 02-12-2024 ambulatory Hina Adrián Facility:[facility] Start: 02-03-2024 ambulatory Hina Sampson Facili ty:[facility] Start: 02-03-2024 End: 02-03-2024 ambulatory Hina Adrián Facility:[facility] Start: 01-04-2024 End: 01-04-2024 Emergency department patient visit JENNIFFER VILLASENOR MD [facility] Start: 10-15-2023 End: 10-15-2023 Emergency department patient visit [facility]Emergency Department Work Phone: Procedures Date Procedure Procedure [...] Work Phone: Comment on above: Performed at: [address] [id number] Director: Popeye Joseph PhD, Phone: [phone] Start: 08-04-[address] Chantal Gonzales [...] on above: Test not performed Start: 08-04-2024 [employer] CONSULTANT antibody measurement Dr. Arun Gonzales DO Work [...] Date Care Activity Detail Author Start: 01-10-2025 [facility] Start: 01-10-2025 [facility] Start: 11-24-2024 Polysomnography [facility] Start: 08-04-2024 Patient referral [facility] Work Phone: Start: 07-23-2024 [facility] Start: 10-15-2023 [facility] metabo lic 1999 panel - Serum or Plasma [facility] lic 1999 panel - Serum or Plasma [facility] Patient Education [facility] Work Phone: Patient referral [facility] Work Phone: Thyroid stimulating hormone measurement [facility] Immunizations Immunization Date Immunization Notes Care Provider Fa cility 08-24-2019 influenza, injectabl e, quadrivalent, preservative free Dr. Arun Gonzales DO Work Phone: [facility] 08-20-2019 pneumococcal polysaccharide vaccine, [address] Arun Gonzales DO Work Phone: [facility] Payers Date Payer Category Payer Self-pay [id number] 2024 Unknown [id number] 2013 Unknown [facility] [id number] 1992 Unknown [id number] 2.16.8 40.1.135801.3.579.2.627 Unknown [facility] [id number] Unknown [id number] 2.16.8 40.1.196496.3.579.2.462 Unknown [id number] 2.16.8 40.1.733670.3.579.2.462 Unknown [id number] 2.16.8 40.1.942366.3.579.2.462 Unknown [id number] 2.16.8 40.1.925498.3.579.2.462 Unknown [id number] 2.16.8 40.1.497850.3.579.2.462 Unknown [id number] 2.16.8 40.1.296218.3.579.2.462 Unknown [id number] 2.16.8 40.1.217029.3.579.2.462 Unknown [id number] 2.16.8 40.1.228145.3.579.2.462 Unknown [id number] 2.16.8 40.1.438932.3.579.2.462 Unknown [id number] 2.16.8 40.1.916187.3.579.2.462 Unknown [id number] 2.16.8 40.1.692346.3.579.2.462 Unknown [id number] 2.16.8 40.1.482955.3.579.2.462 Unknown [id number] 2.16.8 40.1.330081.3.579.2.462 Unknown [id number] 2.16.8 40.1.023974.3.579.2.462 Unknown [id number] 2.16.8 40.1.920379.3.579.2.462 Unknown [id number] 2.16.8 40.1.957049.3.579.2.462 Unknown [id number] 2.16.8 40.1.655887.3.579.2.462 Unknown [id number] 2.16.8 40.1.219555.3.579.2.462 Unknown [id number] 2.16.8 40.1.800877.3.579.2.462 Unknown [id number] 2.16.8 40.1.291531.3.579.2.462 Unknown [id number] 2.16.8 40.1.300208.3.579.2.462 Unknown [id number] 2.16.8 40.1.276742.3.579.2.462 Unknown [id number] 2.16.8 40.1.809031.3.579.2.462 Unknown [id number] 2.16.8 40.1.252145.3.579.2.462 Unknown [id number] 2.16.8 40.1.398334.3.579.2.462 Unknown [id number] 2.16.8 40.1.999074.3.579.2.462 Unknown [id number] 2.16.8 40.1.231802.3.579.2.462 Unknown [id number] 2.16.8 40.1.487480.3.579.2.462 Unknown [id number] 2.16.8 40.1.394390.3.579.2.462 Unknown [id number] 2.16.8 40.1.593221.3.579.2.462 Unknown [id number] 2.16.8 40.1.848384.3.579.2.462 Unknown [id number] 2.16.8 40.1.117695.3.579.2.462 Unknown [id number] 2.16.8 40.1.050057.3.579.2.462 Unknown [id number] 2.16.8 40.1.914083.3.579.2.462 Unknown [id number] 2.16.8 40.1.880454.3.579.2.462 Social History Date Type Detail Facility Start: 10-15-2023 Tobacco smoking stat us [facility] Unknown if ever smoked [facility] Start: 1990 Sex Assigned At Male [facility] Tobacco smoking status No Smokin g Status Entered [facility] Start: 07-23-2024 End: 01-10-2025 Tobacco smoking status NHIS Current Light tobacco smoker [facility] Start: 02-03-2024 Tobacco Use Tobacco Use [facility] Medical Equipment Procedure Code Equipment Code Equipment Original Text Equipment Identifier Dates Total cholecystectomy with exploration of common bile duct CLIP,HEMOLOCK Individual Digital WECK FDA Start: 02-17-2024 Total cholecystectomy with exploration of common bile duct Ligation clip, synthetic polymer, non-bioabsorbable [id number] FDA Start: 02-17-2024 Total cholecystectomy with exploration of common bile duct CLIP,HEMOLOCK Individual Digital WECK FDA Start: 02-17-2024 Total cholecystectomy with [...] Assessment Result Facility 01-04-2024 Functional Status Independent [facility] wai [facility] 01-04-2024 Functional Status Standard Safet y ID band on, Allergy Band on, Call device within reach, Bed in low position, Wheels locked, Upper/Half-Length side-rails up, Safety level maintained [facility] Mental Status Date Assessment Result Facility 01-10-2025 Cognitive function Awake;Alert;A ppropriate;Follo ws Commands [facility] Work Phone: 01-04-2024 Mental Status Orientation Oriented x 4 [facility] 01-04-2024 Mental Status [facility] Clinical Notes 01-04-2024 to 01-10-2025 Note Date & Type Note Facility 01-10-2025 Radiology Diagnostic study note [facility] Imaging Services [address] [place] [address] Chest PA and Lateral MR#: [id number] Acct: [id number] Name: FRITZ MORSE Rep #: [id number] : 1990 M 34 From: Manuel Peña MD PCP: Dr. Arun Gonzales DO Status: RE G ER Study:Chest PA and Lateral Date of Exam: 01/10/25 Exam# [id number] Ordering Dr: Luis Angel Win DO PROCEDURE: CHEST PA AND LATERAL 01/10/2025 REASON FOR EXAM: PALPITATIONS TECHNIQUE: CHEST PA AND LATERAL COMPARISON: None. FINDINGS: Lungs/Pleura: Clear. Heart/Mediastinum: Normal in size. Bones/Soft tissues: Mild degenerative changes of the spine. RAD/Chest PA and Lateral IMPRESSION: No acute cardiopulmonary disease. Reading Location: [id number] CC: Dr. Arun Gonzales DO; Dr. 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 Continue to monitor your blood sugars. Try to eat a low-carb, low sugar diet. Follow-up with your primary care physician in 5 to 7 days for further evaluation. [facility] Work Phone: 11-03-2024 Evaluation note Diagnosis Onset Date Resolution Hypersomnia acute November 03, 2024 11:24am Hypertension chronic November 03 11:24am Elevated LFTs acute November 10, 2 025 10:34am Gastritis acute November 10, 2024 10:34am Hypertension chronic November 24 10:54[facility] Work Phone: 1(444) 456-825502-05-2025 Evaluation note* Diagnosis Onset Date Resolution Status Admit Date Bloody stool acute July 9:54am Elevated LFTs acute July 9:54am Rash acute August 04, 2024 9:54am Hypersomnia acute November 03, 2024 11:24am Hypertension chronic November 03 11:24am Elevated LFTs acute November 10, 2 025 10:34am [facility] Work Phone: 1(631) 772-175802-05-2025 Evaluation note* Diagnosis Onset Date Resolution Status Admit Date Bloody stool acute July 9:54am Elevated LFTs acute July 9:54am Rash acute August 04, 2024 9:54am Hypersomnia acute November 03, 2024 11:24am Hypertension chronic November 03 11:24am Elevated LFTs acute November 10, 2 025 10:34am Gastritis acute November 10, 2024 10:34am Hypertension chronic November 24 10:54am [facility] Work Phone: 1(637) 668-395402-05-2025 Evaluation note* Diagnosis Onset Date Resolution Status Admit Date Bloody stool acute July 9:54am Elevated LFTs acute July 9:54am Rash acute August 04, 2024 9:54am Hypersomnia acute November 03, 2024 11:24am Hypertension chronic November 03 11:24am Elevated LFTs acute November 10, 2 025 10:34am Gastritis acute November 10, 2024 10:34am [facility] Work Phone: 1(259) 995-588009-10-2024 [facility] 01-04-2024 Hospital Discharge instructions Patient Education [...] foods again, start with small amounts of adfn-ua-wouyep, low- fat foods. These include apple sauce, [...] increase stomach acid. Don't use aspirin or fszu-qyi-gifllfe pain and fever medicines, if possible. This includes nonsteroidal anti-inflammatory drugs (NSAIDs). Lose excess weight. Finish eating at least 2 hours before you go to bed or lie down. Raise the head of your bed. 7143-1840 The [employer]. [address] [place] [address]. All rights reserved. This information is not intended as a substitute for professional medical care. Always follow yourhealthcare professional's instructions. Follow Up Care 01/04/2024 00:38:49 With:Follow up with primary care provider Address:Unknown When:2-4 days With:JANINE DEL VALLE MD Address: [address] [place] [address] [facility] [place] [address]- When:2-4 days With:POPEYE HERRERA MD Address: [address] [phone] When:2-4 days [facility] 07-07-2024 Note Discharge Instructions Thank you for allowing [facility] to assist you with your healthcare needs. [...] JANINE DEL VALLE MD When:Within 2-4 days Where:[address] [facility] [place] [address]- Follow Up with POPEYE HERRERA MD When:Within 2-4 days Where:[address] [place] [address]- [phone] Allergies NKA Medications Please ask your primary [...] foods again, start with small amounts of sajf-in-ubxeyx, low- fat foods. These include apple sauce, [...] increase stomach acid. Don't use aspirin or gjwc-scf-atwiush pain and fever medicines, if possible. This includes nonsteroidal anti-inflammatory drugs (NSAIDs). Lose excess weight. Finish eating at least 2 hours before you go to bed or lie down. Raise the head of your bed. 4230-0622 The [employer]. [address] [place] [address], [place] [address]. All rights reserved. This information is not intended as a substitute for professional medical care. Always follow yourhealthcare professional's instructions. Additional Information VACCINATE! IT SAVES LIVES! Members of the community who have not yet received the COVID-19 vaccine and would like to receive it can visit one of [facility] vaccine clinics. There are many vaccine clinic locations within the [facility]. For locations and available times, please visit [email or web address] It is important to note that some COVID mobile vaccine clinics are held outdoors and may be canceled in rainy or stormy conditions. To learn more about pediatric vaccinations (ages 5-11), we invite you to visit the [employer] webpage. https://www.[employer].org/pages/4834-Jsjwd-Cjmcigpvouw-Mvlcbvfsbr-Zghby-Xwk stions.htmlTo learn more about the COVID-19 vaccine, we invite you to visit the CDC website for a list of frequently asked questions. https://www.cdc.gov/coronavirus/2019-ncov/vaccines/faq.html [email or web address] Patient Portal Access Instructions: Stay connected with your healthcare team and access your personal medical information anytime with the [email or web address] Patient Portal. If you would like a full copy of your medical records please contact the [facility] Medical Records Department Friday through Friday between 8a.m. and 4:30p.m. Please follow the directions below to access the portal: 1.Access the email account you provided upon registration to the hospital.2.Look for an invitation email from [facility].3.Open the email and access the invitation link: Accept Invitation to [email or web address].Fill in the required ladd to create your account. Sign into [email or web address] with your username and password that you [...] you will allow to register on the [email or web address] Patient Portal for access to your information. You can also access the [employer] Patient Portal on the [employer]. Simply click on Health Records under HealthData and then click on the [employer] logo. HOW TO SAFELY DISPOSE OF PRESCRIPTION [...] Call your local pharmacy or go to [email or web address] to find one close to you.3.Make use of household items: Use cat litter or old coffee grounds to dispose medications if other options arenot available. Mix your drugs with these household products, seal them in an airtight container andthrow it into the garbage. Call [facility]: [phone] to be sure your drugs can be [...] been reviewed and explained to me and MINI Fuentes, TY understand my current condition and have read and understand these discharge instructions. I have received a written copy of the plan/instructions. If I have questions, I am aware that I should contact my doctor. Patient/Automation Clerk Signature: Date/Time: Relationship to Patient: Witness Name/Signature: Date/Time: [facility]07-07-2024 Note ORIGINAL EXAMINATION: CT OF THE ABDOMEN [...] Date: 01/04/2024 1:52:07 AM Ordering Provider: [facility]SONNew [facility] note No data available for this section [facility] Evaluation noteNo assessment information available [facility] Work Phone: Reason for referral (narrative)No reason for referral [facility] Work Phone: Chief Complaint and Reason for [...] am Hypertension November 24, 2024 10:54 am Chief Complaint Admit Date HR and BP high portal request November 03, 025 11:24am 3 M FU November 10, 2024 10:34 am 2 week f/u November 24, 2024 10:54 am fatigue and HTN November 24, 2024 7:53p m Palpitations January 10, 2025 2:48 pm [facility] er f/u January 18, 2025 12:5 1pm Advance Directives No Advanced Directives Records Found Advance Directive Response Recorded Date/ Time Living Will No October 15, 2023 8:08pm Power of Die Designer Apprentice No October 14 8:08pm Advance Directive Response Recorded Date/ Time Living Will No March 04 11:14am Do you have a Healthcare Power of Die Designer Apprentice? No March 04, 2024 11:14am Living Will No July 23 6:34pm Do you have a Healthcare Power of Die Designer Apprentice? No July 23, 2024 6:34pm Advance Directive Response Recorded Date/ Time Living Will No March 04 11:14am Do you have a Healthcare Power of Die Designer Apprentice? No March 04, 2024 11:14am Advance Directive Response Recorded Date/ Time Do you have a Healthcare Power of Die Designer Apprentice? No January 10, 2025 3:49pm Summary Purpose [...] Primary Care Provider Active Dr. Neetu Espinoza DO Emergency Provider Active Team Status: Active Member Role Status Dates Dr. Arun Gonzales DO Primary Care Provider Active Team Status: Inactive Member Role Status Dates Dr. Arun Gonzales DO Primary Care Provider Active Start: July 23, 2024 End: July 23, 2024 Dr. Gm Maddox DO Attending Provider Active Start: July 23, 2024 End: July 23, 2024 Dr. Gm Maddox DO Emergency Provider Active Start: July 23, 2024 [...] November 10, 2024 Dr. Arun Gonzales , Referring Provider Active Start: November 10, 2024 [...] November 03, 2024 End: November 03, 2024 Danny HAIDER PA Attending Provider Active St art: November 03, [...] Team Status: Inactive Member Role/Relationship Status Dates Danny HAIDER PA Attending Provider Active St art: November 24, [...] November 24, 2024 End: November 24, 2024 Danny HAIDER PA Attending Provider Active St art: November 24, 2024 End: November 24, 2024 Danny HAIDER PA Referring Provider Active St art: November 24, 2024 End: November 24, 2024 Team Status: Inactive Member Role/Relationship Status Dates Dr. Arun Gonzales , Primary Care Provider Active Start: January 10, 2025 End: January 10, 2025 Dr. Luis Angel Win , DO Emergency Provider Active Start: January 10, 2025 End: January 10, 2025 Team Status: Inactive Member Role/Relationship Status Dates Dr. Arun Gonzales , DO Primary Care Provider Active Start: January 10, 2025 End: January 10, 2025 Dr. Luis Angel Win , DO Attending Provider Active Start: January 10, 2025 End: January 10, 2025 Dr. Luis Angel Win , DO Emergency Provider Active Start: January 10, 2025 End: January 10, 2025 Team Status: Inactive Member Role/Relationship Status Dates Dr. Arun Gonzales , DO Primary Care Provider Active Start: January 18, 2025 End: January 18, 2025 Dr. Arun Gonzales , DO Referring Provider Active Start: January 18, 2025 End: January 18, 2025 Danny HAIDER PA Attending Provider Active St art: January 18, 2025 End: January 18, 2025 Goals (unrecognized section and content) Goals [...] section and content) DATE CREATED AUTHOR 01/17/2024 [facility] [place] DATE CREATED AUTHOR AUTHOR'S HÉCTOR ATBARBARA 02/01/2025 [facility] FOR RECORDS PERTAINING TO PATIENTS WHO [...] BE BASED ON THE PRIMARY CLINICAL RECORDS. [facility]. provides no warranty or guarantee of the accuracy or completeness of information in this document.
== END | disposition home or self-care (01) ==
LOC: PSN 13:30
PROVIDERS: PCP Family Medicine; Referring Provider Physician Assistant; Visit Provider Physician Assistant
DX: R00.2 Palpitations (principal)
CPT/HCPCS: 93225; 93226

== ENCOUNTER → 2025-02-04 | Outpatient (CLI) | payer BC, SELFPAY ==
--- NOTE | 2025-02-04 06:54 | ECHOD_ITS ---
Reason For Study Reason For Study: PALPITATIONS Procedure This was a 2D Doppler, Color Flow transthoracic echocardiogram. Exam performed in department. Left Ventricle Normal LV size. Left ventricular systolic function is normal. The left ventricular ejection fraction is 60 %. No regional wall motion abnormalities noted. Right Ventricle Normal RV size. Normal systolic function. Atria Normal left atrium. Normal right atrium. Mitral Valve Normal mitral valve. Tricuspid Valve Normal tricuspid valve. Mild (1+) tricuspid valve insufficiency. Pulmonary artery systolic pressure is 28 mmHg. Aortic Valve Trisinus/trileaflet aortic valve. Pulmonic Valve Normal pulmonic valve. Great Vessels Normal aortic root. The pulmonary artery is normal size. Normal inferior vena cava. Pericardium/Pleural No pericardial effusion. MMode/2D Measurements & Calculations LVIDd: 5.2 cm IVSd: 0.96 cm Ao root diam: 2.7 cm LVIDs: 3.6 cm LVPWd: 0.99 cm RVDd: 4.0 cm FS: 31.7 % LAV(MOD-bp): 54.8 ml LVAd ap4: 40.0 cm2 LVAd ap2: 37.5 cm2 LAV(MOD-bp) Indexed: 23.4 ml/m2 LVLd ap4: 8.4 cm LVLd ap2: 8.4 cm LAV(MOD-sp2): 48.0 ml EDV(MOD-sp4): 154.9 ml EDV(MOD-sp2): 143.4 ml LAV(MOD-sp4): 60.9 ml EDV(sp4-el): 161.1 ml EDV(sp2-el): 142.0 ml LVAs ap4: 21.7 cm2 LVAs ap2: 20.1 cm2 LVLs ap4: 6.6 cm LVLs ap2: 6.8 cm ESV(MOD-sp4): 61.8 ml ESV(MOD-sp2): 50.9 ml ESV(sp4-el): 60.6 ml ESV(sp2-el): 50.3 ml EF(MOD-sp4): 60.1 % EF(MOD-sp2): 64.5 % EF(sp4-el): 62.4 % SV(MOD-sp4): 93.1 ml SV(MOD-sp2): 92.5 ml SV(sp4-el): 100.6 ml SI(MOD-sp4): 39.8 ml/m2 SI(MOD-sp2): 39.5 ml/m2 LA A4 area: 20.3 cm2 LA dimension(2D): 4.5 cm RA A4 area: 16.2 cm2 TAPSE: 2.3 cm Time Measurements MV dec time: 0.22 sec Doppler Measurements & Calculations Lat Peak E' Brandon: 13.2 cm/sec Med Peak E' Brandon: 11.8 cm/sec MV V2 max: 74.4 cm/sec MV max P.2 mmHg MV V2 mean: 31.2 cm/sec MV mean P.54 mmHg MV V2 VTI: 23.3 cm MV P1/2t max brandon: 78.1 cm/sec Ao V2 max: 113.2 cm/sec LV V1 max: 84.3 cm/sec MV P1/2t: 72.2 msec Ao max P.1 mmHg LV V1 max P.8 mmHg Ao V2 mean: 71.1 cm/sec LV V1 mean P.5 mmHg MV dec slope: 317.1 cm/sec2 Ao mean P.3 mmHg LV V1 mean: 58.3 cm/sec MVA(P1/2t): 3.0 cm2 Ao V2 VTI: 21.1 cm LV V1 VTI: 18.0 cm AV (velocity ratio): 0.85 PA V2 max: 106.5 cm/sec TR max brandon: 253.5 cm/sec PA V2 mean: 75.4 cm/sec TR max P.7 mmHg PA V2 VTI: 21.8 cm ECHO/Echo Complete Interpretation Summary Normal LV size. Left ventricular systolic function is normal. The left ventricular ejection fraction is 60 %. Mild (1+) tricuspid valve insufficiency. Ordering Physician: Danny Walter Referring Physician: Arun Gonzales Performed By: Eladia Villegas RDCS, RVT
--- OUTSIDE RECORDS SUMMARY | 2025-02-04 06:57 | XMS RPT_ITS | CCD ---
Author Organization [facility] Care Team Providers Care Supervisor Finishing Name Role Phone PHYSICIAN, NOT RECORDED Primary Care Physician U monse VILLASENOR MD, JENNIFFER Hanley Attending Unavail able PHYSICIAN, NOT RECORDED Primary Care Unavaila ble Christian HUNTER, Dr. Arun Bunch Primary Care Provider Dr. Gm Maddox DO Attending Provider Dr. Gm Maddox DO Emergency Provider Hina Webb Attending Provider Dr. Arun Gonzales DO Referring Provider Hina Webb Referring Provider Danny Dumas Attending Provider Dr. Arun Gonzales DO Primary Care Provider Danny Dumas Referring Provider Dr. Arun Gonzales DO Primary Care Provider [phone] Dr. Arun Gonzales DO Referring Provider Hina Webb Attending Provider Hina Webb Referring Provider Dr. Luis Angel Win DO Emergency Provider Dr. Luis Angel Win DO Attending Provider Friend, Rodrigo Attending Unavailable Arun Gonzales Primary Care Unavailable Arun Gonzales Referring Unavailable Friend, Rodrigo Referring Unavailable Friend, Rodrigo Attending Unavailable Arun Gonzales R Primary Care Unavailable Hina Sampson Attending Unavailable Hina Sampson Referring Unavailable Arun Gonzales Primary Care Unavailable Hina [...] Primary Care Unavailable Friend, Rodrigo Referring Unavailable Sumeet Bearden Attending Unavailable [...] (Original) dicyclomine hydrochloride 10 mg oral capsule (14 sources) Anticholinergic Start: 01-30-2024 End: 02-02-2024 take 1 capsule by mouth twice daily as needed for pain Dicyclomine 10 mg capsule Active 10 mg PO TWICE DAILY NEEDED as needed for abdominal pain February 02, 2024 12:00am levothyroxine sodium 0.025 mg oral tablet (1 source) l-Thyroxine Start: 02-02-2025 take 1 tablet by mouth once daily in the morning Levothyroxine (Synthroid) 25 mcg tablet Active 25 ug PO daily 30 1 February 02, 2025 12:00am first thing AM with glass of WATER and an hour away from food or other meds. [place] (Nk) (1 source) Start: 07-14-2019 [place] (Nk) Active July 14, 2019 1:00am pantoprazole 40 mg delayed release oral tablet (20 sources) Proton Pump Inhibitor Start: 01-06-2024 End: 02-01-2025 take 1 tablet by mouth once daily Pantoprazole 40 mg tablet,delayed release (DR/EC) Active 40 mg PO DAILY 60 0 February 01, 2025 6:30am reflux valsartan 80 mg oral tablet (10 sources) Angiotensin 2 Receptor Lisseth Start: 11-03-2024 End: 12-07-2024 take 1 tablet by mouth once daily Valsartan 80 mg tablet Active 80 mg PO daily 90 1 December 07, 2024 1:32pm Completed/Discontinued Medications Medication Drug Class(es) Dates Sig (Normalized) Sig (Original) acetaminophen 325 mg oral tablet (7 sources) Start: 02-18-2024 End: 11-03-2024 Acetaminophen 325 mg Tablet Discontinued 650 mg PO EVERY 6 HOURS NEEDED as needed for Pain 1-10 Or Fever >100.7 0 0 February 18, 2024 12:00am November 03, 2024 11:36am diclofenac sodium 0.03 mg/mg topical gel (7 sources) Nonsteroidal Anti-inflammatory Drug Start: 06-09-2024 End: 11-03-2024 Diclofenac Sodium 3 % gel Discontinued 1 NMA TOPICAL TWICE A DAY 100 1 June 09, 2024 1:00am November 03, 2024 11:36am lansoprazole 30 mg delayed release oral capsule (15 sources) Proton Pump Inhibitor Start: 02-02-2024 End: [...] 11:23am oxyCODONE hydrochloride 5 mg oral tablet (7 sources) Opioid Agonist Start: 02-18-2024 End: 03-02-2024 take 1 tablet by mouth every six hours as needed for pain Oxycodone 5 mg Tablet Discontinued 5 mg PO EVERY 6 HOURS NEEDED as needed for Pain Score 4-10 10 3 0 February 18, 2024 March 02, 2024 9:19am Acute cholecystitis Acute cholecystitis sucralfate 1000 mg oral tablet (14 sources) Aluminum Complex Start: 03-04-2024 End: 07-23-2024 [...] Date Documented Da te Episodic/Chronic Abdominal pain (19 sources) Abdominal pain; Translations: [Unspecified abdominal pain] Onset: 01-04-2024 10-15-2023 Episodic Biliary tract disease (8 sources) Acute cholecystitis; Translations: [Acute cholecystitis] Onset: 03-08-2024 02-23-2024 Episodic Cardiac dysrhythmias (9 sources) Palpitations; Translations: [Palpitations] Onset: 01-15-2025 01-10-2025 Episodic Chronic kidney disease (1 source) Chronic kidney disease, stage 2 (mild); Translations: [Chronic kidney disease, stage 2 (mild)] Onset: 05-20-2024 Chronic Diabetes mellitus without complication (6 sources) Hyperglycemia; Translations: [Hyperglycemia, unspecified] Onset: 01-18-2025 01-10-2025 Episodic Essential hypertension (20 sources) Hypertensive disorder; Translations: [Essential (primary) hypertension] 11-03-2024 Chronic Gastritis and duodenitis (12 sources) Gastritis; Translations: [Gastritis, unspecified, without bleeding] 11-10-2024 Episodic Gastrointestinal hemorrhage (20 sources) Hematochezia; Translations: [Melena] Onset: 03-29-2024 01-06-2024 Episodic Nausea and vomiting (8 sources) Nausea; Translations: [Nausea] Onset: 02-17-2024 01-30-2024 Episodic Other connective tissue disease (7 sources) Prepatellar bursitis; Translations: [Prepatellar bursitis, unspecified knee] 06-09-2024 Episodic Other endocrine disorders (8 sources) Congenital adrenal hyperplasia; Translations: [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] 01-06-2024 Chronic Other gastrointestinal disorders (1 source) Irritable bowel syndrome without diarrhea; Translations: [Irritable bowel syndrome without diarrhea] Onset: 02-20-2024 Chronic Other gastrointestinal disorders (7 sources) Ulceration of small intestine; Translations: [Ulcer of intestine] 03-15-2024 Episodic Other gastrointestinal disorders (7 sources) Constipation; Translations: [Constipation, unspecified] 07-31-2024 Episodic Other liver diseases (7 sources) Steatosis of liver; Translations: [Fatty (change of) liver, not elsewhere classified] 01-06-2024 Chronic Other liver diseases (1 source) Fatty (change of) liver, not elsewhere classified; Translations: [Fatty (change of) liver, not elsewhere classified] Onset: 05-24-2024 Chronic Other nutritional; endocrine; and metabolic disorders (1 source) Hypercalcemia; Translations: [Hypercalcemia] 01-19-2025 Chronic Other nutritional; endocrine; and metabolic disorders (1 source) Excessive thirst; Translations: [Polydipsia] 01-20-2025 Episodic Other screening for suspected conditions (not mental disorders or infectious disease) (20 sources) Other specified abnormal findings of blood chemistry; Translations: [Elevated liver function tests] Onset: 06-29-2024 01-06-2024 Episodic Other skin disorders (11 sources) Eruption; Translations: [Rash and other nonspecific skin eruption] 08-04-2024 Episodic Residual codes; unclassified (14 sources) Hypersomnia; Translations: [Hypersomnia, unspecified] 11-03-2024 Chronic Residual codes; unclassified (1 source) Hypersomnia, unspecified; Translations: [Hypersomnia, unspecified] Onset: 11-29-2024 Chronic Superficial injury; contusion (16 sources) Contusion of right hand; Translations: [Contusion of right hand, initial encounter] 07-19-2019 Episodic Thyroid disorders (2 sources) Hypothyroidism; Translations: [Hypothyroidism, unspecified] 02-01-2025 Chronic Unclassified (8 sources) Rash; Translations: [R21 - Rash and other nonspecific skin eruption] Unclassified (1 source) Elevation of levels of liver transaminase levels; Translations: [Elevation of levels of liver transaminase levels] Onset: 06-29-2024 Unclassified (1 source) Luis Alfredo's thyroiditis Unclassified (2 sources) E06.3 - Autoimmune thyroiditis Past or Other Problems Problem Classification Problem [...] n 02-01-2025 ACTH 40.2 pg/mL Normal 7.2-63.3 [facility] Comment on above: Order Comment: N Result Comment: ACTH reference interval for samples collected between 7 and10 AM.Performed at: [facility] [id number] Director: Popeye Joseph PhD, Phone: [phone] Performed By: #### L 501.9520, L3300.1000, L509.1000 ####[facility] [address] [place], [place], [id number] PTHINon 01-31-2025 PTH 33 pg/mL Normal 11-61 [facility] Comment on above: Performed By: #### L 501.9520, L3300.1000, L509.1000 ####[facility] [address] [place], [place], [id number] Serum or plasma thyroperoxid ase antibody assay (units/volume)Ordered By: Danny Walter on 01-31-2025 TPO Ab Qn 279 [IU]/mL High 0-34 [facility] T4 freeOrdered By: Danny villafana on 01-31-2025 Free T4 [Mass/Vol] 1.20 ng/dL 0.76-1.46 [facility] TSH DL <= 0.005 mIU/L QnOrde red By: Danny Walter on 01-31-2025 TSH Qn 6.860 uIU/mL High 0.300-4.20 0 [facility] Thyroid Stim Hormone (TSH)on 01-31-2025 TSH 6.860 uIU/mL High 0.300-4.20 0 [facility] Comment on above: Performed By: #### L 501.3851, L3300.1000, L509.1000 ####[facility] [address] [place], [address] ThyroxineOrdered By: Danny Walter on 01-31-2025 T4 [Mass/Vol] 8.8 ug/dL 4.5-12.1 [facility] Internal Medicine Office Vis iton 01-18-2025 Internal Medicine Office Visit Normal [facility] Laboratory - Hematology and Cell countsOrdered By: Danny Walter on 01-18-2025 HbA1c (Bld) [Mass fraction] 5.9 % 4.2-6.3 [facility] 12 Lead EKGon 01-10-2025 12 Lead EKG Normal [facility] Absolute lymphocyte countOrd ered By: Luis Angel Win on 01-10-2025 Lymphocytes Auto (Unsp spec) [#/Vol] 1.24 10*3/uL 0.83-4.51 [facility] Absolute neutrophil countOrd ered By: Luis Angel Win on 01-10-2025 Neutrophils (Bld) [#/Vol] 4.7 10*3/uL 2.0-7.7 [facility] Amorphous sediment detection in urine sediment by light microscopyOrdered By: Luis Angel Win on 01-10-2025 Amorphous sediment LM Ql (Urine sed) 1+ [facility] Anion gap in Serum or Plasma Ordered By: Luis Angel Win on 01-10-2025 Anion gap [Moles/Vol] 16 mmol/L High 5-15 [facility] Automated lymphocyte count a s percentage of total leukocytesOrdered By: Luis Angel Win on 01-10-2025 Lymphocytes/100 WBC Auto (Unsp spec) 19.0 % 19-41 [facility] BUN/creatinine ratioOrdered By: Luis Angel Win on 01-10-2025 Urea nitrogen/Creatinine [Mass ratio] 9.4 mg/mg Low 10-20 [facility] Basic Metabolic Profile (BMP )on 01-10-2025 BUN/CRE 9.4 RATIO Low 10- [facility] Comment on above: Performed By: #### L 300.8000, L100.0100, L500.2500 ####[facility] [address] [place], [address] Calcium [Mass/Vol] 10.0 mg/dL Normal 7.6-11.0 [facility] Comment on above: Performed By: #### L 300.8000, L100.0100, L500.2500 ####[facility] [address] [place], [address] Chloride [Moles/Vol] 102 mmol/L Normal 98-108 [facility] Comment on above: Performed By: #### L 300.8000, L100.0100, L500.2500 ####[facility] [address] [place], [address] CO2 [Moles/Vol] 18.2 mmol/L Low 21.0-32.0 [facility] Comment on above: Performed By: #### L 300.8000, L100.0100, L500.2500 ####[facility] [address] [place], [address] Creatinine [Mass/Vol] 1.21 mg/dL High 0.70-1.20 [facility] Comment on above: Performed By: #### L 300.8000, L100.0100, L500.2500 ####[facility] [address] [place], [address] ECRCL 114.74 ml/min Normal 50-250 [facility] Comment on above: Performed By: #### L 300.8000, L100.0100, L500.2500 ####[facility] [address] [place], [address] GAP 16 High 5-15 [facility] Comment on above: Performed By: #### L 300.8000, L100.0100, L500.2500 ####[facility] [address] [place], [address] GFR/1.73 sq M.predicted among non-blacks MDRD (S/P/Bld) [Vol rate/Area] 82 mL/min/{1.73_m2} Normal >60 [facility] Comment on above: Result Comment: mL/m in/1.73m2 CKD-EPI Creatinine Equation (2020) Performed By: #### L 300.8000, L100.0100, L500.2500 ####[facility] [address] [place], [address] Glucose [Mass/Vol] 202 mg/dL High 70-99 [facility] Comment on above: Performed By: #### L 300.8000, L100.0100, L500.2500 ####[facility] [address] [place], [address] Potassium [Moles/Vol] 4.1 mmol/L Normal 3.3-5.1 [facility] Comment on above: Result Comment: Hemo lysis present, Results??could be affected.?? Performed By: #### L 300.8000, L100.0100, L500.2500 ####[facility] [address] [place], [address] Sodium [Moles/Vol] 137 mmol/L Normal 133-145 [facility] Comment on above: Performed By: #### L 300.8000, L100.0100, L500.2500 ####[facility] [address] [place], [address] Urea nitrogen [Mass/Vol] 11 mg/dL Normal 4-19 [facility] Comment on above: Performed By: #### L 300.8000, L100.0100, L500.2500 ####[facility] [address] [place], [address] Basophil percentageOrdered B y: Luis Angel Win on 01-10-2025 Basophils/100 WBC (Bld) 0.5 % 0-1 [facility] Bilirubin Test strip Ql (U)O rdered By: Luis Angel Win on 01-10-2025 Bilirubin Ql (U) Negative Negative [facility] CBC W/Diff, Automatedon 12-28 Absolute Lymph 1.24 X10 3/uL Normal 0.83-4.51 [facility] Comment on above: Performed By: #### L 300.8000, L100.0100, L500.2500 ####[facility] [address] [place], [address] Absolute Neut 4.7 X10 3/uL Normal 2.0-7.7 [facility] Comment on above: Performed By: #### L 300.8000, L100.0100, L500.2500 ####[facility] [address] [place], [address] Basophils/100 WBC (Bld) 0.5 % Normal 0-1 [facility] Comment on above: Performed By: #### L 300.8000, L100.0100, L500.2500 ####[facility] [address] [place], [address] Eosinophils/100 WBC (Bld) 3.1 % Normal 0-5 [facility] Comment on above: Performed By: #### L 300.8000, L100.0100, L500.2500 ####[facility] [address] [place], [address] Erythrocyte distribution width (RBC) [Ratio] 11.9 % Normal 11.6-14.6 [facility] Comment on above: Performed By: #### L 300.8000, L100.0100, L500.2500 ####[facility] [address] [place], [address] Hematocrit (Bld) [Volume fraction] 45.4 % Normal 40-54 [facility] Comment on above: Performed By: #### L 300.8000, L100.0100, L500.2500 ####[facility] [address] [place], [address] Hemoglobin (Bld) [Mass/Vol] 16.0 g/dL Normal 13.0-16.5 [facility] Comment on above: Performed By: #### L 300.8000, L100.0100, L500.2500 ####[facility] [address] [place], [address] IG% 0.200 Normal 0.0-0.9 [facility] Comment on above: Result Comment: IG% - Immature Granulocytes (promyelocytes, myelocytes andmetamyelocytes) > 1% indicates that a LEFT SHIFT is Present. Performed By: #### L 300.8000, L100.0100, L500.2500 ####[facility] [address] [place], [address] Lymphocytes/100 WBC (Bld) 19.0 % Normal 19-41 [facility] Comment on above: Performed By: #### L 300.8000, L100.0100, L500.2500 ####[facility] [address] [place], [address] MCH (RBC) [Entitic mass] 30.6 pg Normal 27.0-32.0 [facility] Comment on above: Performed By: #### L 300.8000, L100.0100, L500.2500 ####[facility] [address] [place], [address] MCHC (RBC) [Mass/Vol] 35.2 g/dL Normal 32-36 [facility] Comment on above: Performed By: #### L 300.8000, L100.0100, L500.2500 ####[facility] [address] [place], [address] MCV (RBC) [Entitic vol] 86.8 fL Normal 80-94 [facility] Comment on above: Performed By: #### L 300.8000, L100.0100, L500.2500 ####[facility] [address] [place], [address] Monocytes/100 WBC (Bld) 5.2 % Normal 0-10 [facility] Comment on above: Performed By: #### L 300.8000, L100.0100, L500.2500 ####[facility] [address] [place], [address] Neutrophils/100 WBC (Bld) 72.0 % High 47-70 [facility] Comment on above: Performed By: #### L 300.8000, L100.0100, L500.2500 ####[facility] [address] [place], [address] Nucleated RBC (Bld) [#/Vol] 0 10*3/uL Normal 0-5 [facility] Comment on above: Performed By: #### L 300.8000, L100.0100, L500.2500 ####[facility] [address] [place], [address] Platelet mean volume (Bld) [Entitic vol] 9.8 fL Normal 6.2-12.0 [facility] Comment on above: Performed By: #### L 300.8000, L100.0100, L500.2500 ####[facility] [address] [place], [address] Platelets (Bld) [#/Vol] 275 10*3/uL Normal 150-450 [facility] Comment on above: Performed By: #### L 300.8000, L100.0100, L500.2500 ####[facility] [address] [place], [address] RBC (Bld) [#/Vol] 5.23 10*6/uL Normal 4.6-6.2 [facility] Comment on above: Performed By: #### L 300.8000, L100.0100, L500.2500 ####[facility] [address] [place], [address] RDW SD 37.9 fl Normal 35.1-43.9 [facility] Comment on above: Performed By: #### L 300.8000, L100.0100, L500.2500 ####[facility] [address] [place], [address] WBC (Bld) [#/Vol] 6.5 10*3/uL Normal 4.4-11.0 [facility] Comment on above: Performed By: #### L 300.8000, L100.0100, L500.2500 ####[facility] [address] [place], [address] CO2 (BldV) [Moles/Vol]Ordere d By: Luis Angel Win on 01-10-2025 CO2 [Moles/Vol] 25 mmol/L 23-33 [facility] Carbon dioxide, total [Moles /volume] in Central venous bloodOrdered By: Luis Angel Win on 01-10-2025 CO2 [Moles/Vol] 18.2 mmol/L Low 21.0-32.0 [facility] Chest PA and Lateralon 01-10 Chest PA and Lateral Normal [facility] Chloride assayOrdered By: Kailash Win on 01-10-2025 Chloride [Moles/Vol] 102 mmol/L 98-108 [facility] D-Dimer Quantitative (DVT/PE )on 01-10-2025 D-DIMER QUANT 0.27 FEU/ug/m Normal 0.27-0.49 [facility] Comment on above: Result Comment: NORM AL D-Dimer level (<0.50) indicates no DVT or PE. Performed By: #### L 300.8000, L100.0100, L500.2500 ####[facility] [address] [place], [address] Emergency Department Summary on 01-10-2025 Emergency Department Summary Normal [facility] Eosinophil percentageOrdered By: Luis Angel Win on 07-14-2025 Eosinophils/100 WBC (Bld) 3.1 % 0-5 [facility] Erythrocyte distribution wid th ratioOrdered By: Luis Angel Win on 01-10-2025 Erythrocyte distribution width (RBC) [Ratio] 11.9 % 11.6-14.6 [facility] Erythrocyte distribution wid th standard deviationOrdered By: Luis Angel Win on 01-10-2025 Erythrocyte distribution width (RBC) [Ratio] 37.9 fl 35.1-43.9 [facility] Glomerular filtration rate ( GFR) estimation/1.73 sq m using serum, plasma, or whole bOrdered By: Luis Angel Win on 01-10-2025 GFR/1.73 sq M.predicted among non-blacks MDRD (S/P/Bld) [Vol rate/Area] 82 mL/min/{1.73_m2} >60 [facility] Comment on above: mL/min/1.73m2 CKD-EP I Creatinine Equation (2020) Hematocrit Auto (Bld) [Volum e fraction]Ordered By: Luis Angel Win on 01-10-2025 Hematocrit (Bld) [Volume fraction] 45.4 % 40-54 [facility] Hemoglobin measurementOrdere d By: Luis Angel Win on 01-10-2025 Hemoglobin (Bld) [Mass/Vol] 16.0 g/dL 13.0-16.5 [facility] Immature granulocytes/100 WB C Auto (Bld)Ordered By: Luis Angel Win on 01-10-2025 Immature granulocytes/100 WBC (Bld) 0.200 % 0.0-0.9 [facility] Comment on above: IG% - Immature Granu locytes (promyelocytes, myelocytes and metamyelocytes) > 1% indicates that a LEFT SHIFT is Present. Ketones Test strip Ql (U)Ord ered By: Luis Angel Win on 01-10-2025 Ketones Ql (U) Negative Negative [facility] L501.4021on 01-10-2025 Trop T High Sen < 6 Normal <=22 [facility] Comment on above: Performed By: #### L 501.4021 ####[facility] [address] [place], [address] MCV (mean corpuscular volume ) determinationOrdered By: Luis Angel Win on 01-10-2025 MCV (RBC) [Entitic vol] 86.8 fL 80-94 [facility] Mean corpuscular hemoglobin (MCH) determinationOrdered By: Luis Angel Win on 01-10-2025 MCH (RBC) [Entitic mass] 30.6 pg 27.0-32.0 [facility] Mean corpuscular hemoglobin concentration (MCHC) determinationOrdered By: Luis Angel Win on 01-10-2025 MCHC (RBC) [Mass/Vol] 35.2 g/dL 32-36 [facility] Mean platelet volume determi nationOrdered By: Luis Angel Win on 01-10-2025 Platelet mean volume (Bld) [Entitic vol] 9.8 fL 6.2-12.0 [facility] Microscopic analysis of urin e for red blood cells (RBC)Ordered By: Luis Angel Win on 01-10-2025 Microscopic analysis of urine for red blood cells (RBC) 0-5 SEEN /hpf 0-5 [facility] Monocyte percentageOrdered B y: Luis Angel Win on 01-10-2025 Monocytes/100 WBC (Bld) 5.2 % 0-10 [facility] Mucus LM Ql (Urine sed)Order ed By: Luis Angel Win on 01-10-2025 Mucus Ql (Urine sed) 0 SEEN /hpf [facility] Neutrophil percentageOrdered By: Luis Angel Win on 01-10-2025 Neutrophils/100 WBC (Bld) 72.0 % High 47-70 [facility] Nitrite Test strip Ql (U)Ord ered By: Luis Angel Win on 01-10-2025 Nitrite Ql (U) Negative Negative [facility] No Panel InformationOrdered By: Luis Angel Win on 01-10-2025 Blood Gas Sample Site Not entered [facility] Blood Gas Specimen Type TRENT [facility] Oxygen Delivery Device Room Air [facility] Nucleated red blood cell per centageOrdered By: Luis Angel Win on 01-10-2025 Nucleated RBC/100 WBC (Bld) [Ratio] 0 % 0-5 [facility] Platelet countOrdered By: Kailash Win on 01-10-2025 Platelets (Bld) [#/Vol] 275 10*3/uL 150-450 [facility] Potassium measurement (mass/ volume)Ordered By: Luis Angel Win on 01-10-2025 Potassium (Unsp spec) [Mass/Vol] 4.1 mmol/L 3.3-5.1 [facility] Comment on above: Hemolysis present, R esults could be affected. Protein Test strip Ql (U)Ord ered By: Luis Angel Win on 01-10-2025 Protein Ql (U) Negative Negative [facility] RBC Auto (Bld) [#/Vol]Ordere d By: Luis Angel Win on 01-10-2025 RBC (Bld) [#/Vol] 5.23 10*6/uL 4.6-6.2 [facility] Serum creatinine measurement (mass/volume)Ordered By: Luis Angel Win on 01-10-2025 Creatinine [Mass/Vol] 1.21 mg/dL High 0.70-1.20 [facility] Serum glucose measurement (m ass/volume)Ordered By: Luis Angel Win on 01-10-2025 Glucose [Mass/Vol] 202 mg/dL High 70-99 [facility] Serum or plasma calcium summer urement (mass/volume)Ordered By: Luis Angel Win on 01-10-2025 Calcium [Mass/Vol] 10.0 mg/dL 7.6-11.0 [facility] Serum or plasma urea nitroge n measurement (mass/volume)Ordered By: Luis Angel Win on 01-10-2025 Urea nitrogen [Mass/Vol] 11 mg/dL 4-19 [facility] Sodium levelOrdered By: Luis Angel Win on 01-10-2025 Sodium [Moles/Vol] 137 mmol/L 133-145 [facility] Squamous epithelial cells de tection in urine sediment by light microscopyOrdered By: Luis Angel Win on 01-10-2025 Epithelial cells.squamous LM Ql (Urine sed) 0-5 SEEN /hpf 0-5 [facility] Troponin T.cardiac [Mass/vol ume] in Serum or Plasma by High sensitivity methodOrdered By: Luis Angel Win on 01-10-2025 Troponin T.cardiac High sensitivity method [Mass/Vol] < 6 ng/L <22 [facility] Urinalysis, Completeon 01-10 AMORPHOUS 1+ Normal [facility] Comment on above: Order Comment: CLEAN CATCH Performed By: #### L 400.0001 ####[facility] [address] [place], [address] EPI,SQUAMOUS 0-5 SEEN Normal 0-5 [facility] Comment on above: Order Comment: CLEAN CATCH Performed By: #### L 400.0001 ####[facility] [address] [place], [address] RBC 0-5 SEEN Normal 0-5 [facility] Comment on above: Order Comment: CLEAN CATCH Performed By: #### L 400.0001 ####[facility] [address] [place], [address] WBC 0-5 SEEN Normal 0-5 [facility] Comment on above: Order Comment: CLEAN CATCH Performed By: #### L 400.0001 ####[facility] [facility] [address] [place], [address] BACTERIA 0 SEEN Normal None Seen [facility] Comment on above: Order Comment: CLEAN CATCH Performed By: #### L 400.0001 ####[facility] [address] [place], [address] Mucus Ql (Urine sed) 0 SEEN Normal [facility] Comment on above: Order Comment: CLEAN CATCH Performed By: #### L 400.0001 ####[facility] [address] [place], [address] Urine clarityOrdered By: Marbella Win on 01-10-2025 Clarity (U) Clear Clear [facility] Urine color determinationOrd ered By: Luis Angel Win on 01-10-2025 Color (U) Yellow Yellow [facility] Urine glucose detectionOrder ed By: Luis Angel Win on 01-10-2025 Glucose Ql (U) Normal mg/dl Normal [facility] Urine leukocyte esterase det ection by dipstickOrdered By: Luis Angel Win on 01-10-2025 Leukocyte esterase Test strip Ql (U) Negative Negative [facility] Urine pHOrdered By: Luis Angel griffin on 01-10-2025 pH (U) 7.0 [pH] 5.0 - 8.0 [facility] Urine sediment bacteria coun t by microscopy (number/high power field)Ordered By: Luis Angel Win on 01-10-2025 Bacteria LM.HPF (Urine sed) [#/Area] 0 /[HPF] None Seen [facility] Urine specific gravity measu rementOrdered By: Luis Angel Win on 01-10-2025 Specific gravity (U) [Rel density] 1.010 1.002-1.03 0 [facility] Urine urobilinogen measureme ntOrdered By: Luis Angel Win on 01-10-2025 Urobilinogen Ql (U) Normal mg/dl Normal [facility] Venous Blood Gason Blood Gas Type TRENT Normal [facility] Comment on above: Performed By: #### L 9000.0810 ####[facility] [address] [place], [address] CO2 [Moles/Vol] 25 mmol/L Normal 23-33 [facility] Comment on above: Performed By: #### L 9000.0810 ####[facility] [address] [place], [address] HCO3 (Bld) [Moles/Vol] 24 mmol/L Normal 22-26 [facility] Comment on above: Performed By: #### L 0.0810 ####[facility] [address] [place], [address] O2 Delivery Dev Room Air Normal [facility] Comment on above: Performed By: #### L 8999.0810 ####[facility] [address] [place], [address] SITE Not entered Normal [facility] Comment on above: Performed By: #### L 0.0810 ####[facility] [address] [place], [address] VBG BE 0 mmol/L Normal -1.0-3.5 [facility] Comment on above: Performed By: #### L 9000.0810 ####[facility] [address] [place], [address] VBG pCO2 36.8 mmHg Low 41-51 [facility] Comment on above: Performed By: #### L 9000.0810 ####[facility] [address] [place], [address] VBG pH 7.42 Normal 7.32-7.42 [facility] Comment on above: Performed By: #### L 9000.0810 ####[facility] [address] [place], [address] VBG PO2 46 mmHg High 25-40 [facility] Comment on above: Performed By: #### L 9000.0810 ####[facility] [address] [place], [address] VBG SO2 83 High 50-70 [facility] Comment on above: Performed By: #### L 9000.0810 ####[facility] [address] [place], [address] Venous blood base excess corina surementOrdered By: Luis Angel Win on 01-10-2025 Base excess Calc (BldV) [Moles/Vol] 0 mmol/L -1.0-3.5 [facility] Venous blood bicarbonate corina surementOrdered By: Luis Angel Win on 01-10-2025 HCO3 (Bld) [Moles/Vol] 24 mmol/L 22-26 [facility] Venous blood oxygen saturati on measurementOrdered By: Luis Angel Win on 01-10-2025 Oxygen saturation in Blood 83 % High 50-70 [facility] Venous blood pH measurementO rdered By: Luis Angel Win on 01-10-2025 pH (BldV) 7.42 [pH] 7.32-7.42 [facility] Venous blood partial pressur e of carbon dioxide measurementOrdered By: Luis Angel Win on 01-10-2025 CO2 (BldV) [Partial pressure] 36.8 mm[Hg] Low 41-51 [facility] Venous blood partial pressur e of oxygen measurementOrdered By: Luis Angel Win on 01-10-2025 Oxygen (BldV) [Partial pressure] 46 mm[Hg] High 25-40 [facility] White blood cell (WBC) count Ordered By: Luis Angel Win on 01-10-2025 WBC (Bld) [#/Vol] 6.5 10*3/uL 4.4-11.0 [facility] White blood cell countOrdere d By: Luis Angel Win on 01-10-2025 White blood cell count 0-5 SEEN /hpf 0-5 [facility] Internal Medicine Office Vis iton 11-24-2024 Internal Medicine Office Visit Normal [facility] Anion gap in Serum or Plasma Ordered By: Hina Sampson on 11-10-2024 Anion gap [Moles/Vol] 10 mmol/L 5-15 [facility] BUN/creatinine ratioOrdered By: Hina Sampson on 11-10-2024 Urea nitrogen/Creatinine [Mass ratio] 12.3 mg/mg 10-20 [facility] Bilirubin, totalOrdered By: Hina Sampson on 11-10-2024 Bilirubin [Mass/Vol] 0.58 mg/dL 0.00-1.30 [facility] Carbon dioxide, total [Moles /volume] in Central venous bloodOrdered By: Hina Sampson on 11-10-2024 CO2 [Moles/Vol] 22.8 mmol/L 21.0-32.0 [facility] Chloride assayOrdered By: Susana Sampson on 11-10-2024 Chloride [Moles/Vol] 104 mmol/L 98-108 [facility] Comprehensive Metabolic Prof ilon 11-10-2024 Albumin [Mass/Vol] 4.1 g/dL Normal 3.5-5.0 [facility] Comment on above: Performed By: #### L 500.4050, L501.9520 ####[facility] [address] [place], [address] Albumin/Globulin [Mass ratio] 1.3 {ratio} Normal 0.9-2.4 [facility] Comment on above: Performed By: #### L 500.4050, L501.20 ####[facility] [address] [place], [address] ALK PHOS 131 U/L High 40-129 [facility] Comment on above: Performed By: #### L 500.4050, L5.9520 ####[facility] [address] [place], [address] ALT [Catalytic activity/Vol] 113 U/L High <=46 [facility] Comment on above: Performed By: #### L 500.4050, L5.20 ####[facility] [address] [place], [address] AST [Catalytic activity/Vol] 51 U/L High <=37 [facility] Comment on above: Performed By: #### L 500.4050, L5.20 ####[facility] [address] [place], [address] Bilirubin [Mass/Vol] 0.58 mg/dL Normal 0.00-1.30 [facility] Comment on above: Performed By: #### L 500.4050, L5.20 ####[facility] [address] [place], [address] BUN/CRE 12.3 RATIO Normal 10-20 [facility] Comment on above: Performed By: #### L 500.4050, L501.9520 ####[facility] [address] [place], [address] Calcium [Mass/Vol] 9.7 mg/dL Normal 7.6-11.0 [facility] Comment on above: Performed By: #### L 500.4050, L5.9520 ####[facility] [address] [place], [address] Chloride [Moles/Vol] 104 mmol/L Normal 98-108 [facility] Comment on above: Performed By: #### L 500.4050, L501.9520 ####[facility] [address] [place], [address] CO2 [Moles/Vol] 22.8 mmol/L Normal 21.0-32.0 [facility] Comment on above: Performed By: #### L 500.4050, L501.9520 ####[facility] [address] [place], [address] Creatinine [Mass/Vol] 1.04 mg/dL Normal 0.70-1.20 [facility] Comment on above: Performed By: #### L 500.4050, L501.9520 ####[facility] [address] [place], [address] GAP 10 Normal 5-15 [facility] Comment on above: Performed By: #### L 500.4050, L501.9520 ####[facility] [address] [place], [address] GFR/1.73 sq M.predicted among non-blacks MDRD (S/P/Bld) [Vol rate/Area] 98 mL/min/{1.73_m2} Normal >60 [facility] Comment on above: Result Comment: mL/m in/1.73m2 CKD-EPI Creatinine Equation (2020) Performed By: #### L 500.4050, L501.9520 ####[facility] [address] [place], [address] Globulin (S) [Mass/Vol] 3.1 g/dL Normal 2.2-4.2 [facility] Comment on above: Performed By: #### L 500.4050, L501.9520 ####[facility] [address] [place], [address] Glucose [Mass/Vol] 108 mg/dL High 70-99 [facility] Comment on above: Performed By: #### L 500.4050, L501.9520 ####[facility] [address] [place], [address] Potassium [Moles/Vol] 4.1 mmol/L Normal 3.3-5.1 [facility] Comment on above: Performed By: #### L 500.4050, L501.9520 ####[facility] [address] [place], [address] Sodium [Moles/Vol] 137 mmol/L Normal 133-145 [facility] Comment on above: Performed By: #### L 500.4050, L501.9520 ####[facility] [address] [place], [address] T PROT 7.2 g/dL Normal 5.9-8.4 [facility] Comment on above: Performed By: #### L 500.4050, L501.9520 ####[facility] [address] [place], [address] Urea nitrogen [Mass/Vol] 13 mg/dL Normal 4-19 [facility] Comment on above: Performed By: #### L 500.4050, L501.9520 ####[facility] [address] [place], [address] Gastroenterology Visit Repor ton 11-10-2024 Gastroenterology Visit Report Normal [facility] Glomerular filtration rate ( GFR) estimation/1.73 sq m using serum, plasma, or whole bOrdered By: Hina Sampson on 11-10-2024 GFR/1.73 sq M.predicted among non-blacks MDRD (S/P/Bld) [Vol rate/Area] 98 mL/min/{1.73_m2} >60 [facility] Comment on above: mL/min/1.73m2 CKD-EP I Creatinine Equation (2020) Laboratory - Chemistry and C hemistry - challengeOrdered By: Hina Sampson on 11-10-2024 AST [Catalytic activity/Vol] 51 U/L High <38 [facility] Potassium measurement (mass/ volume)Ordered By: Hina Sampson on 11-10-2024 Potassium (Unsp spec) [Mass/Vol] 4.1 mmol/L 3.3-5.1 [facility] Serum creatinine measurement (mass/volume)Ordered By: Hina Sampson on 11-10-2024 Creatinine [Mass/Vol] 1.04 mg/dL 0.70-1.20 [facility] Serum globulin measurementOr dered By: Hina Sampson on 11-10-2024 Globulin (S) [Mass/Vol] 3.1 g/dL 2.2-4.2 [facility] Serum glucose measurement (m ass/volume)Ordered By: Hina Sampson on 11-10-2024 Glucose [Mass/Vol] 108 mg/dL High 70-99 [facility] Serum or plasma alanine recinos otransferase (ALT) measurementOrdered By: Hina Sampson on 11-10-2024 ALT [Catalytic activity/Vol] 113 U/L High <47 [facility] Serum or plasma albumin summer urement (mass/volume)Ordered By: Hina Sampson on 11-10-2024 Albumin [Mass/Vol] 4.1 g/dL 3.5-5.0 [facility] Serum or plasma albumin/glob ulin mass ratioOrdered By: Hina Sampson on 11-10-2024 Albumin/Globulin [Mass ratio] 1.3 {ratio} 0.9-2.4 [facility] Serum or plasma alkaline nirav sphatase measurementOrdered By: Hina Sampson on 11-10-2024 ALP [Catalytic activity/Vol] 131 U/L High 40-129 [facility] Serum or plasma calcium summer urement (mass/volume)Ordered By: Hina Sampson on 11-10-2024 Calcium [Mass/Vol] 9.7 mg/dL 7.6-11.0 [facility] Serum or plasma urea nitroge n measurement (mass/volume)Ordered By: Hina Sampson on 11-10-2024 Urea nitrogen [Mass/Vol] 13 mg/dL 4-19 [facility] Sodium levelOrdered By: Errol Sampson on 11-10-2024 Sodium [Moles/Vol] 137 mmol/L 133-145 [facility] TSH DL <= 0.005 mIU/L QnOrde red By: Danny Walter on 11-10-2024 TSH Qn 4.080 uIU/mL 0.300-4.20 0 [facility] Thyroid Stim Hormone (TSH)on 11-10-2024 TSH 4.080 uIU/mL Normal 0.300-4.20 0 [facility] Comment on above: Performed By: #### L 500.4050, L501.9520 ####[facility] [address] [place], [address] Total proteinOrdered By: Radha Sampson on 11-10-2024 Protein [Mass/Vol] 7.2 g/dL 5.9-8.4 [facility] Internal Medicine Office Vis iton 11-03-2024 Internal Medicine Office Visit Normal [facility] CAROLANN w/ Reflex Mult Confirmon 08-05-2024 CAROLANN,DIRECT Negative Normal Negative [facility] Comment on above: Result Comment: Perf ormed at: [facility] [address] [id number] Director: Popeye Joseph PhD, Phone: [phone] Performed By: #### L 3100.5440, L803.2200, L3300.1200, L3100.5450, L100.0100 ####[facility] [address] [place], [address] ANCAon 08-05-2024 Atypical pANCA <1:20 Normal Neg:<1:20 [facility] Comment on above: Result Comment: The atypical pANCA pattern has been observed in asignificant percentage of patients with ulcerative colitis,primary sclerosing cholangitis and autoimmune hepatitis. Performed By: #### L 3100.5440, L803.2200, L3300.1200, L3100.5450, L100.0100 ####[facility] [address] [place], [address] Cytoplasmic Ab <1:20 Normal Neg:<1:20 [facility] Comment on above: Performed By: #### L 3100.5440, L803.2200, L3300.1200, L3100.5450, L100.0100 ####[facility] [address] [place], [address] Perinuclear Ab. <1:20 Normal Neg:<1:20 [facility] Comment on above: Result Comment: The presence of positive fluorescence exhibiting P-ANCA orC-ANCA patterns alone is not specific for the diagnosis ofWegener's Granulomatosis (WG) or microscopic polyangiitis.Decisions about treatment should not be based solely onANCA IFA results. The International ANCA Group Consensusrecommends follow up testing of positive sera with both OR-3 and MPO-ANCA enzyme immunoassays. As many as 5% serumsamples are positive only by EIA. Ref. AM J Clin Aiwnll5697;111:507-513. Performed By: #### L 3100.5440, L803.2200, L3300.1200, L3100.5450, L100.0100 ####[facility] [address] [place], [address] Anti-Smooth Muscle ABSon ANTISMOOTH MUSC 7 Units Normal 0-19 [facility] Comment on above: Result Comment: Nega tive 0 - 19 Weak positive 20 - 30 Moderate to strong positive >30 Actin Antibodies are found in 52-85% of patients with autoimmune hepatitis or chronic active hepatitis and in 22% of patients with primary biliary cirrhosis.Performed at: [address] [id number] Director: Popeye Joseph PhD, Phone: [phone] Performed By: #### L 3100.5440, L803.2200, L3300.1200, L3100.5450, L100.0100 ####[facility] [address] [place], [address] CAROLANN Comprehensive Panelon CAROLANN TABLE TNP Normal [facility] Comment on above: Performed By: #### L 3100.5440, L803.2200, L3300.1200, L3100.5450, L100.0100 ####[facility] [address] [place], [address] Absolute lymphocyte countOrd ered By: Hina Sampson on 08-04-2024 Lymphocytes Auto (Unsp spec) [#/Vol] 1.74 10*3/uL 0.83-4.51 [facility] Absolute neutrophil countOrd ered By: Hinagalina Sampson on 08-04-2024 Neutrophils (Bld) [#/Vol] 4.1 10*3/uL 2.0-7.7 [facility] Automated lymphocyte count a s percentage of total leukocytesOrdered By: Hina Sampson on 08-04-2024 Lymphocytes/100 WBC Auto (Unsp spec) 25.7 % 19-41 [facility] Basophil percentageOrdered B y: Hina Sampson on 08-04-2024 Basophils/100 WBC (Bld) 0.6 % 0-1 [facility] CBC W/Diff, Automatedon Absolute Lymph 1.74 X10 3/uL Normal 0.83-4.51 [facility] Comment on above: Performed By: #### L 3100.5440, L803.2200, L3300.1200, L3100.5450, L100.0100 ####[facility] [address] [place], [address] Absolute Neut 4.1 X10 3/uL Normal 2.0-7.7 [facility] Comment on above: Performed By: #### L 3100.5440, L803.2200, L3300.1200, L3100.5450, L100.0100 ####[facility] [address] [place], [address] Basophils/100 WBC (Bld) 0.6 % Normal 0-1 [facility] Comment on above: Performed By: #### L 3100.5440, L803.2200, L3300.1200, L3100.5450, L100.0100 ####[facility] [address] [place], [address] Eosinophils/100 WBC (Bld) 4.6 % Normal 0-5 [facility] Comment on above: Performed By: #### L 3100.5440, L803.2200, L3300.1200, L3100.5450, L100.0100 ####[facility] [address] [place], [address] Erythrocyte distribution width (RBC) [Ratio] 12.0 % Normal 11.6-14.6 [facility] Comment on above: Performed By: #### L 3100.5440, L803.2200, L3300.1200, L3100.5450, L100.0100 ####[facility] [address] [place], [address] Hematocrit (Bld) [Volume fraction] 45.4 % Normal 40-54 [facility] Comment on above: Performed By: #### L 3100.5440, L803.2200, L3300.1200, L3100.5450, L100.0100 ####[facility] [address] [place], [address] Hemoglobin (Bld) [Mass/Vol] 15.7 g/dL Normal 13.0-16.5 [facility] Comment on above: Performed By: #### L 3100.5440, L803.2200, L3300.1200, L3100.5450, L100.0100 ####[facility] [address] [place], [address] IG% 0.400 Normal 0.0-0.9 [facility] Comment on above: Result Comment: IG% - Immature Granulocytes (promyelocytes, myelocytes andmetamyelocytes) > 1% indicates that a LEFT SHIFT is Present. Performed By: #### L 3100.5440, L803.2200, L3300.1200, L3100.5450, L100.0100 ####[facility] [address] [place], [address] Lymphocytes/100 WBC (Bld) 25.7 % Normal 19-41 [facility] Comment on above: Performed By: #### L 3100.5440, L803.2200, L3300.1200, L3100.5450, L100.0100 ####[facility] [address] [place], [address] MCH (RBC) [Entitic mass] 30.8 pg Normal 27.0-32.0 [facility] Comment on above: Performed By: #### L 3100.5440, L803.2200, L3300.1200, L3100.5450, L100.0100 ####[facility] [address] [place], [address] MCHC (RBC) [Mass/Vol] 34.6 g/dL Normal 32-36 [facility] Comment on above: Performed By: #### L 3100.5440, L803.2200, L3300.1200, L3100.5450, L100.0100 ####[facility] [address] [place], [address] MCV (RBC) [Entitic vol] 89.0 fL Normal 80-94 [facility] Comment on above: Performed By: #### L 3100.5440, L803.2200, L3300.1200, L3100.5450, L100.0100 ####[facility] [address] [place], [address] Monocytes/100 WBC (Bld) 8.0 % Normal 0-10 [facility] Comment on above: Performed By: #### L 3100.5440, L803.2200, L3300.1200, L3100.5450, L100.0100 ####[facility] [address] [place], [address] Neutrophils/100 WBC (Bld) 60.7 % Normal 47-70 [facility] Comment on above: Performed By: #### L 3100.5440, L803.2200, L3300.1200, L3100.5450, L100.0100 ####[facility] [address] [place], [address] Nucleated RBC (Bld) [#/Vol] 0 10*3/uL Normal 0-5 [facility] Comment on above: Performed By: #### L 3100.5440, L803.2200, L3300.1200, L3100.5450, L100.0100 ####[facility] [address] [place], [address] Platelet mean volume (Bld) [Entitic vol] 9.2 fL Normal 6.2-12.0 [facility] Comment on above: Performed By: #### L 3100.5440, L803.2200, L3300.1200, L3100.5450, L100.0100 ####[facility] [address] [place], [address] Platelets (Bld) [#/Vol] 256 10*3/uL Normal 150-450 [facility] Comment on above: Performed By: #### L 3100.5440, L803.2200, L3300.1200, L3100.5450, L100.0100 ####[facility] [address] [place], [address] RBC (Bld) [#/Vol] 5.10 10*6/uL Normal 4.6-6.2 [facility] Comment on above: Performed By: #### L 3100.5440, L803.2200, L3300.1200, L3100.5450, L100.0100 ####[facility] [address] [place], [address] RDW SD 39.3 fl Normal 35.1-43.9 [facility] Comment on above: Performed By: #### L 3100.5440, L803.2200, L3300.1200, L3100.5450, L100.0100 ####[facility] [address] [place], [address] WBC (Bld) [#/Vol] 6.8 10*3/uL Normal 4.4-11.0 [facility] Comment on above: Performed By: #### L 3100.5440, L803.2200, L3300.1200, L3100.5450, L100.0100 ####[facility] [address] [place], [address] Eosinophil percentageOrdered By: Hina Sampson on 08-04-2024 Eosinophils/100 WBC (Bld) 4.6 % 0-5 [facility] Erythrocyte distribution wid th ratioOrdered By: Hina Sampson on 08-04-2024 Erythrocyte distribution width (RBC) [Ratio] 12.0 % 11.6-14.6 [facility] Erythrocyte distribution wid th standard deviationOrdered By: Hina Sampson on 08-04-2024 Erythrocyte distribution width (RBC) [Ratio] 39.3 fl 35.1-43.9 [facility] Gastroenterology Visit Repor ton 08-04-2024 Gastroenterology Visit Report Normal [facility] Hematocrit Auto (Bld) [Volum e fraction]Ordered By: Hina Sampson on 08-04-2024 Hematocrit (Bld) [Volume fraction] 45.4 % 40-54 [facility] Hemoglobin measurementOrdere d By: Hina Sampson on 08-04-2024 Hemoglobin (Bld) [Mass/Vol] 15.7 g/dL 13.0-16.5 [facility] Immature granulocytes/100 WB C Auto (Bld)Ordered By: Hina Sampson on 08-04-2024 Immature granulocytes/100 WBC (Bld) 0.400 % 0.0-0.9 [facility] Comment on above: IG% - Immature Granu locytes (promyelocytes, myelocytes and metamyelocytes) > 1% indicates that a LEFT SHIFT is Present. MCV (mean corpuscular volume ) determinationOrdered By: Hina Sampson on 08-04-2024 MCV (RBC) [Entitic vol] 89.0 fL 80-94 [facility] Mean corpuscular hemoglobin (MCH) determinationOrdered By: Hina Sampson on 08-04-2024 MCH (RBC) [Entitic mass] 30.8 pg 27.0-32.0 [facility] Mean corpuscular hemoglobin concentration (MCHC) determinationOrdered By: Hina Sampson on 08-04-2024 MCHC (RBC) [Mass/Vol] 34.6 g/dL 32-36 [facility] Mean platelet volume determi nationOrdered By: Hina Sampson on 08-04-2024 Platelet mean volume (Bld) [Entitic vol] 9.2 fL 6.2-12.0 [facility] Monocyte percentageOrdered B y: Hina Sampson on 08-04-2024 Monocytes/100 WBC (Bld) 8.0 % 0-10 [facility] Neutrophil percentageOrdered By: Hina Sampson on 08-04-2024 Neutrophils/100 WBC (Bld) 60.7 % 47-70 [facility] Nucleated red blood cell per centageOrdered By: Hina Sampson on 08-04-2024 Nucleated RBC/100 WBC (Bld) [Ratio] 0 % 0-5 [facility] Platelet countOrdered By: Susana Sampson on 08-04-2024 Platelets (Bld) [#/Vol] 256 10*3/uL 150-450 [facility] RBC Auto (Bld) [#/Vol]Ordere d By: Hina Sampson on 08-04-2024 RBC (Bld) [#/Vol] 5.10 10*6/uL 4.6-6.2 [facility] Serum DNA double strand anti body assay (units/volume)Ordered By: Hina Sampson on 08-04-2024 DNA double strand Ab Qn (S) [facility] Comment on above: Test not performed Serum Scl-70 antibody assay (units/volume)Ordered By: Hina Sampson on 08-04-2024 SCL-70 extractable nuclear Ab Qn (S) [facility] Comment on above: Test not performed Serum classic neutrophil cyt oplasmic antibody assay (units/volume)Ordered By: Hina Sampson on 08-04-2024 Neutrophil cytoplasmic Ab.classic Qn (S) <1:20 titer Neg:<1:20 [facility] Serum or plasma actin IgG an tibody assay (units/volume)Ordered By: Hina aSmpson on 08-04-2024 Actin IgG Qn 7 Units 0-19 [facility] Comment on above: Negative 0 - 19 Weak positive 20 - 30 Moderate to strong positive >30 Actin Antibodies are found in 52-85% of patients with autoimmune hepatitis or chronic active hepatitis and in 22% of patients with primary biliary cirrhosis.Performed at: [employer] [id number] Director: Popeye Joseph PhD, Phone: [phone] Serum perinuclear neutrophil cytoplasmic antibody titer by immunofluorescenceOrdered By: Hina Sampson on 08-04-2024 Neutrophil cytoplasmic Ab.perinuclear IF (S) [Titer] <1:20 titer Neg:<1:20 [facility] Comment on above: The presence of posi tive fluorescence exhibiting P-ANCA orC-ANCA patterns alone is not specific for the diagnosis ofWegener's Granulomatosis (WG) or microscopic polyangiitis.Decisions about treatment should not be based solely onANCA IFA results. The [employer] ANCA [employer] Consensusrecommends follow up testing of positive sera with both OR-3 and MPO-ANCA enzyme immunoassays. As many as 5% serumsamples are positive only by EIA. Ref. AM J Clin Fioshr9884;111:[id number]. White blood cell (WBC) count Ordered By: Hina Sampson on 08-04-2024 WBC (Bld) [#/Vol] 6.8 10*3/uL 4.4-11.0 [facility] Absolute lymphocyte countOrd ered By: Jese Sharmaradha on 07-23-2024 Lymphocytes Auto (Unsp spec) [#/Vol] 1.82 10*3/uL 0.83-4.51 [facility] Absolute neutrophil countOrd ered By: Jese Sharmaradha on 07-23-2024 Neutrophils (Bld) [#/Vol] 5.3 10*3/uL 2.0-7.7 [facility] Albumin to globulin ratioOrd ered By: Jese Sharmaradha on 07-23-2024 Albumin/Globulin [Mass ratio] 0.9 {ratio} 0.9-2.4 [facility] Automated lymphocyte count a s percentage of total leukocytesOrdered By: Jese Saulsanket on 07-23-2024 Lymphocytes/100 WBC Auto (Unsp spec) 23.2 % 19-41 [facility] Basophil percentageOrdered B y: Jese Rosie on 07-23-2024 Basophils/100 WBC (Bld) 0.8 % 0-1 [facility] Bilirubin, totalOrdered By: Jese Rosie on 07-23-2024 Bilirubin [Mass/Vol] 0.60 mg/dL 0.20-1.00 [facility] Comment on above: For patients on eltr ombopag therapy, use of Dimension [place] TBIL is not recommended. Blood urea nitrogen (BUN)/cr eatinine ratioOrdered By: Jese Rosie on 07-23-2024 Urea nitrogen/Creatinine [Mass ratio] 9.8 mg/mg Low 10-20 [facility] CBC W/Diff, Automatedon 07-01 Absolute Lymph 1.82 X10 3/uL Normal 0.83-4.51 [facility] Comment on above: Performed By: #### L 500.4050, L100.0100 ####[facility] [address] [place], [place], [id number] Absolute Neut 5.3 X10 3/uL Normal 2.0-7.7 [facility] Comment on above: Performed By: #### L 500.4050, L100.0100 ####[facility] [address] [place], [address] Basophils/100 WBC (Bld) 0.8 % Normal 0-1 [facility] Comment on above: Performed By: #### L 500.4050, L100.0100 ####[facility] [address] [place], [address] Eosinophils/100 WBC (Bld) 2.2 % Normal 0-5 [facility] Comment on above: Performed By: #### L 500.4050, L100.0100 ####[facility] [address] [place], [address] Erythrocyte distribution width (RBC) [Ratio] 12.0 % Normal 11.6-14.6 [facility] Comment on above: Performed By: #### L 500.4050, L100.0100 ####[facility] [address] [place], [address] Hematocrit (Bld) [Volume fraction] 47.0 % Normal 40-54 [facility] Comment on above: Performed By: #### L 500.4050, L100.0100 ####[facility] [address] [place], [address] Hemoglobin (Bld) [Mass/Vol] 16.3 g/dL Normal 13.0-16.5 [facility] Comment on above: Performed By: #### L 500.4050, L100.0100 ####[facility] [address] [place], [address] IG% 0.100 Normal 0.0-0.9 [facility] Comment on above: Result Comment: IG% - Immature Granulocytes (promyelocytes, myelocytes andmetamyelocytes) > 1% indicates that a LEFT SHIFT is Present. Performed By: #### L 500.4050, L100.0100 ####[facility] [address] [place], [address] Lymphocytes/100 WBC (Bld) 23.2 % Normal 19-41 [facility] Comment on above: Performed By: #### L 500.4050, L100.0100 ####[facility] [address] [place], [address] MCH (RBC) [Entitic mass] 30.7 pg Normal 27.0-32.0 [facility] Comment on above: Performed By: #### L 500.4050, L100.0100 ####[facility] [address] [place], [address] MCHC (RBC) [Mass/Vol] 34.7 g/dL Normal 32-36 [facility] Comment on above: Performed By: #### L 500.4050, L100.0100 ####[facility] [address] [place], [address] MCV (RBC) [Entitic vol] 88.5 fL Normal 80-94 [facility] Comment on above: Performed By: #### L 500.4050, L100.0100 ####[facility] [address] [place], [address] Monocytes/100 WBC (Bld) 6.4 % Normal 0-10 [facility] Comment on above: Performed By: #### L 500.4050, L100.0100 ####[facility] [address] [place], [address] Neutrophils/100 WBC (Bld) 67.3 % Normal 47-70 [facility] Comment on above: Performed By: #### L 500.4050, L100.0100 ####[facility] [address] [place], [address] Nucleated RBC (Bld) [#/Vol] 0 10*3/uL Normal 0-5 [facility] Comment on above: Performed By: #### L 500.4050, L100.0100 ####[facility] [address] [place], [address] Platelet mean volume (Bld) [Entitic vol] 9.5 fL Normal 6.2-12.0 [facility] Comment on above: Performed By: #### L 500.4050, L100.0100 ####[facility] [address] [place], [address] Platelets (Bld) [#/Vol] 253 10*3/uL Normal 150-450 [facility] Comment on above: Performed By: #### L 500.4050, L100.0100 ####[facility] [address] [place], [address] RBC (Bld) [#/Vol] 5.31 10*6/uL Normal 4.6-6.2 [facility] Comment on above: Performed By: #### L 500.4050, L100.0100 ####[facility] [address] [place], [address] RDW SD 38.5 fl Normal 35.1-43.9 [facility] Comment on above: Performed By: #### L 500.4050, L100.0100 ####[facility] [address] [place], [address] WBC (Bld) [#/Vol] 7.8 10*3/uL Normal 4.4-11.0 [facility] Comment on above: Performed By: #### L 500.4050, L100.0100 ####[facility] [address] [place], [address] Carbon dioxide measurementOr dered By: Jese Velez on 07-23-2024 CO2 [Moles/Vol] 27.0 mmol/L 21.0-32.0 [facility] Chloride measurementOrdered By: Jese Velez on 07-23-2024 Chloride [Moles/Vol] 108 mmol/L High 98-107 [facility] Comprehensive Metabolic Prof ilon 07-23-2024 Albumin [Mass/Vol] 3.8 g/dL Normal 3.2-5.0 [facility] Comment on above: Performed By: #### L 500.4050, L100.0100 ####[facility] [address] [place], [address] Albumin/Globulin [Mass ratio] 0.9 {ratio} Normal 0.9-2.4 [facility] Comment on above: Performed By: #### L 500.4050, L100.0100 ####[facility] [address] [place], [address] ALK P 135 U/L High 45-117 [facility] Comment on above: Performed By: #### L 500.4050, L100.0100 ####[facility] [address] [place], [address] ALT [Catalytic activity/Vol] 115 U/L High 16-61 [facility] Comment on above: Performed By: #### L 500.4050, L100.0100 ####[facility] [address] [place], [address] AST [Catalytic activity/Vol] 44 U/L High 15-37 [facility] Comment on above: Performed By: #### L 500.4050, L100.0100 ####[facility] [address] [place], [address] Bilirubin [Mass/Vol] 0.60 mg/dL Normal 0.20-1.00 [facility] Comment on above: Result Comment: For patients on eltrombopag therapy, use of Dimension [place] TBIL is not recommended. Performed By: #### L 500.4050, L100.0100 ####[facility] [address] [place], [address] BUN/CRE 9.8 RATIO Low 10-20 [facility] Comment on above: Performed By: #### L 500.4050, L100.0100 ####[facility] [address] [place], [address] CA,Total 9.6 mg/dL Normal 8.5-10.1 [facility] Comment on above: Performed By: #### L 500.4050, L100.0100 ####[facility] [address] [place], [address] Chloride [Moles/Vol] 108 mmol/L High 98-107 [facility] Comment on above: Performed By: #### L 500.4050, L100.0100 ####[facility] [address] [place], [address] CO2 [Moles/Vol] 27.0 mmol/L Normal 21.0-32.0 [facility] Comment on above: Performed By: #### L 500.4050, L100.0100 ####[facility] [address] [place], [address] Creatinine [Mass/Vol] 1.33 mg/dL High 0.70-1.30 [facility] Comment on above: Result Comment: The validity of the calculated GFR GFRAA in patients over70 years has not been determined. Clinical correlation isessential. Performed By: #### L 500.4050, L100.0100 ####[facility] [address] [place], [address] ECRCL 103.04 ml/min Normal [facility] Comment on above: Performed By: #### L 500.4050, L100.0100 ####[facility] [address] [place], [address] EST GFR - AA 80 mL/min Normal >60 [facility] Comment on above: Result Comment: Afri can [place] GFR Calc Performed By: #### L 500.4050, L100.0100 ####[facility] [address] [place], [address] GAP 6 Normal 5-15 [facility] Comment on above: Performed By: #### L 500.4050, L100.0100 ####[facility] [address] [place], [address] GFR/1.73 sq M.predicted among non-blacks MDRD (S/P/Bld) [Vol rate/Area] 66 mL/min/{1.73_m2} Normal >60 [facility] Comment on above: Result Comment: Non- GFR Calc Performed By: #### L 500.4050, L100.0100 ####[facility] [address] [place], [address] Globulin (S) [Mass/Vol] 4.1 g/dL Normal 2.2-4.2 [facility] Comment on above: Performed By: #### L 500.4050, L100.0100 ####[facility] [address] [place], [address] Glucose [Mass/Vol] 101 mg/dL Normal 74-106 [facility] Comment on above: Result Comment: Fast ing Glucose result from 100 to 125 mg/dLsuggests IMPAIRED HOMEOSTASIS per A.D.A. criteria. Performed By: #### L 500.4050, L100.0100 ####[facility] [address] [place], [address] Potassium [Moles/Vol] 3.7 mmol/L Normal 3.5-5.1 [facility] Comment on above: Performed By: #### L 500.4050, L100.0100 ####[facility] [address] [place], [address] Sodium [Moles/Vol] 141 mmol/L Normal 136-145 [facility] Comment on above: Performed By: #### L 500.4050, L100.0100 ####[facility] [address] [place], [address] T PROT 7.9 g/dL Normal 6.4-8.2 [facility] Comment on above: Performed By: #### L 500.4050, L100.0100 ####[facility] [address] [place], [address] Urea nitrogen [Mass/Vol] 13 mg/dL Normal 7-18 [facility] Comment on above: Performed By: #### L 500.4050, L100.0100 ####[facility] [address] [place], [address] Emergency Department Summary on 07-23-2024 Emergency Department Summary Normal [facility] Eosinophil percentageOrdered By: Jese Velez on 07-23-2024 Eosinophils/100 WBC (Bld) 2.2 % 0-5 [facility] Erythrocyte distribution wid th ratioOrdered By: Jese Velez on 07-23-2024 Erythrocyte distribution width (RBC) [Ratio] 12.0 % 11.6-14.6 [facility] Erythrocyte distribution wid th standard deviationOrdered By: Jese Velez on 07-23-2024 Erythrocyte distribution width (RBC) [Ratio] 38.5 fl 35.1-43.9 [facility] Glomerular filtration rate ( GFR) estimationOrdered By: Jese Velez on 07-23-2024 GFR/1.73 sq M.predicted among non-blacks MDRD (S/P/Bld) [Vol rate/Area] 66 mL/min/{1.73_m2} >60 [facility] Comment on above: Non- GFR Calc Glucose measurementOrdered B y: Jese Velez on 07-23-2024 Glucose [Mass/Vol] 101 mg/dL 74-106 [facility] Comment on above: Fasting Glucose resu lt from 100 to 125 mg/dL suggests IMPAIRED HOMEOSTASIS per A.D.A. criteria. Hematocrit Auto (Bld) [Volum e fraction]Ordered By: Jese Velez on 01-24-2025 Hematocrit (Bld) [Volume fraction] 47.0 % 40-54 [facility] Hemoglobin measurementOrdere d By: Jese Velez on 07-23-2024 Hemoglobin (Bld) [Mass/Vol] 16.3 g/dL 13.0-16.5 [facility] Immature granulocytes/100 WB C Auto (Bld)Ordered By: Jese Velez on 07-23-2024 Immature granulocytes/100 WBC (Bld) 0.100 % 0.0-0.9 [facility] Comment on above: IG% - Immature Granu locytes (promyelocytes, myelocytes and metamyelocytes) > 1% indicates that a LEFT SHIFT is Present. Laboratory - Chemistry and C hemistry - challengeOrdered By: Jese Velez on 07-23-2024 AST [Catalytic activity/Vol] 44 U/L High 15-37 [facility] MCV (mean corpuscular volume ) determinationOrdered By: Jese Velez on 07-23-2024 MCV (RBC) [Entitic vol] 88.5 fL 80-94 [facility] Mean corpuscular hemoglobin (MCH) determinationOrdered By: Jese Velez on 07-23-2024 MCH (RBC) [Entitic mass] 30.7 pg 27.0-32.0 [facility] Mean corpuscular hemoglobin concentration (MCHC) determinationOrdered By: Jese Velez on 07-23-2024 MCHC (RBC) [Mass/Vol] 34.7 g/dL 32-36 [facility] Mean platelet volume determi nationOrdered By: Jese Velez on 07-23-2024 Platelet mean volume (Bld) [Entitic vol] 9.5 fL 6.2-12.0 [facility] Monocyte percentageOrdered B y: Jese Velez on 07-23-2024 Monocytes/100 WBC (Bld) 6.4 % 0-10 [facility] Neutrophil percentageOrdered By: Jese Velez on 07-23-2024 Neutrophils/100 WBC (Bld) 67.3 % 47-70 [facility] Nucleated red blood cell per centageOrdered By: Jese Velez on 07-23-2024 Nucleated RBC/100 WBC (Bld) [Ratio] 0 % 0-5 [facility] Platelet countOrdered By: Thang Velez on 07-23-2024 Platelets (Bld) [#/Vol] 253 10*3/uL 150-450 [facility] Potassium measurementOrdered By: Jese Velez on 07-23-2024 Potassium [Moles/Vol] 3.7 mmol/L 3.5-5.1 [facility] RBC Auto (Bld) [#/Vol]Ordere d By: Jese Velez on 07-23-2024 RBC (Bld) [#/Vol] 5.31 10*6/uL 4.6-6.2 [facility] Serum anion gap measurementO rdered By: Jese Velez on 07-23-2024 Anion gap [Moles/Vol] 6 mmol/L 5-15 [facility] Serum globulin measurementOr dered By: Jese Velez on 07-23-2024 Globulin (S) [Mass/Vol] 4.1 g/dL 2.2-4.2 [facility] Serum or plasma alanine recinos otransferase (ALT) measurementOrdered By: Jese Velez on 07-23-2024 ALT [Catalytic activity/Vol] 115 U/L High 16-61 [facility] Serum or plasma albumin summer urement (mass/volume)Ordered By: Jese Velez on 07-23-2024 Albumin [Mass/Vol] 3.8 g/dL 3.2-5.0 [facility] Serum or plasma alkaline nirav sphatase measurementOrdered By: Jese Velez on 07-23-2024 ALP [Catalytic activity/Vol] 135 U/L High 45-117 [facility] Serum or plasma calcium summer urement (mass/volume)Ordered By: Jese Velez on 07-23-2024 Calcium [Mass/Vol] 9.6 mg/dL 8.5-10.1 [facility] Serum or plasma creatinine m easurement (mass/volume)Ordered By: Jese Velez on 07-23-2024 Creatinine [Mass/Vol] 1.33 mg/dL High 0.70-1.30 [facility] Comment on above: The validity of the calculated GFR & GFRAA in patients over 70 years has not been determined. Clinical correlation is essential. Serum or plasma urea nitroge n measurement (mass/volume)Ordered By: Jese Velez on 07-23-2024 Urea nitrogen [Mass/Vol] 13 mg/dL 7-18 [facility] Sodium levelOrdered By: Jese Velez on 07-23-2024 Sodium [Moles/Vol] 141 mmol/L 136-145 [facility] Total proteinOrdered By: Nerissa Velez on 07-23-2024 Protein [Mass/Vol] 7.9 g/dL 6.4-8.2 [facility] White blood cell (WBC) count Ordered By: Jese Velez on 07-23-2024 WBC (Bld) [#/Vol] 7.8 10*3/uL 4.4-11.0 [facility] MRCP Abdomen without Contras ton 07-01-2024 MRCP Abdomen without Contrast Normal [facility] Internal Medicine Office Vis iton 06-09-2024 Internal Medicine Office Visit Normal [facility] Knee 3 Viewson 06-09-2024 Knee 3 Views Normal [facility] Angiotensin Convert Enzymeon 06-08-2024 ANGIOT-CONV.ENZ 74 U/L Normal 14-82 [facility] Comment on above: Order Comment: N Result Comment: Perf ormed at: [facility] [address] [id number] Director: Popeye Joseph PhD, Phone: [phone] Performed By: #### L 3200.0500, L3100.6900, L3400.8000, L3854.8618 ####[facility] [address] [place], [address] HUGO + Protein Elect, Serumon 06-08-2024 Albumin [Mass/Vol] 3.6 g/dL Normal 2.9-4.4 [facility] Comment on above: Order Comment: N Performed By: #### L 3200.0500, L3100.6900, L3400.8000, [id number] ####[facility] [address] [place], [address] Albumin/Globulin [Mass ratio] 1.1 {ratio} Normal 0.7-1.7 [facility] Comment on above: Order Comment: N Performed By: #### L 3200.0500, L3100.6900, L3400.8000, L3100.3425 ####[facility] [address] [place], [address] YCQOM-1-ONRC 0.3 g/dL Normal 0.0-0.4 [facility] Comment on above: Order Comment: N Performed By: #### L 3200.0500, L3100.6900, L3400.8000, L3100.3425 ####[facility] [address] [place], [address] DIVCS-7-OGHZ 0.8 g/dL Normal 0.4-1.0 [facility] Comment on above: Order Comment: N Performed By: #### L 3200.0500, L3100.6900, L3400.8000, L3100.3425 ####[facility] [address] [place], [address] BETA GLOBULIN 1.2 g/dL Normal 0.7-1.3 [facility] Comment on above: Order Comment: N Performed By: #### L 3200.0500, L3100.6900, L3400.8000, L3100.3425 ####[facility] [address] [place], [address] GAMMA GLOBULIN 1.3 g/dL Normal 0.4-1.8 [facility] Comment on above: Order Comment: N Performed By: #### L 3200.0500, L3100.6900, L3400.8000, L3100.3425 ####[facility] [address] [place], [address] Globulin (S) [Mass/Vol] 3.6 g/dL Normal 2.2-3.9 [facility] Comment on above: Order Comment: N Performed By: #### L 3200.0500, L3100.6900, L3400.8000, L3100.3425 ####[facility] [address] [place], [address] HUGO RESULT,S Comment Normal . [facility] Comment on above: Order Comment: N Result Comment: No m onoclonality detected. Performed By: #### L 3200.0500, L3100.6900, L3400.8000, L3100.3425 ####[facility] [address] [place], [address] IMMUNOGLOB A QN 527 mg/dL High 90-386 [facility] Comment on above: Order Comment: N Performed By: #### L 3200.0500, L3100.6900, L3400.8000, L3100.3425 ####[facility] [address] [place], [address] IMMUNOGLOB M QN 27 mg/dL Normal 20-172 [facility] Comment on above: Order Comment: N Performed By: #### L 3200.0500, L3100.6900, L3400.8000, L3100.3425 ####[facility] [address] [place], [address] M-Ron Not Observed Normal Not Observed [facility] Comment on above: Order Comment: N Performed By: #### L 3200.0500, L3100.6900, L3400.8000, L3100.3425 ####[facility] [address] [place], [address] NOTE: Comment Normal . [facility] Comment on above: Order Comment: N Result Comment: Prot ein electrophoresis scan will follow via computer,mail, or java groovy developer delivery. Performed By: #### L 3200.0500, L3100.6900, L3400.8000, L3100.3425 ####[facility] [address] [place], [address] Protein [Mass/Vol] 7.2 g/dL Normal 6.0-8.5 [facility] Comment on above: Order Comment: N Performed By: #### L 3200.0500, L3100.6900, L3400.8000, L3100.3425 ####[facility] [address] [place], [address] IgG Subclasseson 06-08-2024 IgG, SUBCLASS 1 633 mg/dL Normal 248-810 [facility] Comment on above: Order Comment: N Performed By: #### L 3200.0500, L3100.6900, L3400.8000, L3100.3425 ####[facility] [address] [place], [address] IgG, SUBCLASS 2 322 mg/dL Normal 130-555 [facility] Comment on above: Order Comment: N Performed By: #### L 3200.0500, L3100.6900, L3400.8000, L3100.3425 ####[facility] [address] [place], [address] IgG, SUBCLASS 3 82 mg/dL Normal 15-102 [facility] Comment on above: Order Comment: N Performed By: #### L 3200.0500, L3100.6900, L3400.8000, L3100.3425 ####[facility] [address] [place], [address] IgG, SUBCLASS 4 87 mg/dL Normal 2-96 [facility] Comment on above: Order Comment: N Performed By: #### L 3200.0500, L3100.6900, L3400.8000, L3100.3425 ####[facility] [address] [place], [address] IGG,QUANT 1183 mg/dL Normal 603-1613 [facility] Comment on above: Order Comment: N Performed By: #### L 3200.0500, L3100.6900, L3400.8000, L3100.3425 ####[facility] [address] [place], [address] Quantiferon TB-Gold+on 06-08 QFT MITOGEN YOGESH > 10.00 Normal . [facility] Comment on above: Order Comment: N Performed By: #### L 3200.0500, L3100.6900, L3400.8000, L3100.3425 ####[facility] [address] [place], [address] QFT NIL VALUE 0.04 IU/mL Normal . [facility] Comment on above: Order Comment: N Performed By: #### L 3200.0500, L3100.6900, L3400.8000, L3100.3425 ####[facility] [address] [place], [address] QFT TB GOLD+ Comment Normal . [facility] Comment on above: Order Comment: N [...] By: #### L 3200.0500, L3100.6900, L3400.8000, L3100.3425 ####[facility] [address] [place], [address] QFT TB POS CRIT Negative Normal Negative [facility] Comment on above: Order Comment: N [...] By: #### L 3200.0500, L3100.6900, L3400.8000, L3100.3425 ####[facility] [address] [place], [address] QFT TB1+ AG YOGESH 0.04 IU/mL Normal . [facility] Comment on above: Order Comment: N Performed By: #### L 3200.0500, L3100.6900, L3400.8000, L3100.3425 ####[facility] [address] [place], [address] QFT TB2+ AG YOGESH 0.06 IU/mL Normal . [facility] Comment on above: Order Comment: N Performed By: #### L 3200.0500, L3100.6900, L3400.8000, L3100.3425 ####[facility] [address] [place], [address] Abdomen without IV Contrasto n 05-28-2024 Abdomen without IV Contrast Normal [facility] Operative Reporton Operative Report Normal [facility] Trichrome (control)on 2023 Trichrome (control) Normal [facility] Comment on above: Performed By: #### P TRI ####[facility] [address] [place], [address] Partial Thromboplast Timeon 05-26-2024 aPTT Coag (Bld) [Time] 25.3 s Normal 24.1-36.2 [facility] Comment on above: Performed By: #### L 300.3900, L100.1900, L300.4310 ####[facility] [address] [place], [address] Platelet Counton 05-26-2024 Platelets (Bld) [#/Vol] 268 10*3/uL Normal 150-450 [facility] Comment on above: Performed By: #### L 300.3900, L100.1900, L300.4310 ####[facility] [address] [place], [address] Prothrombin Time w/INRon INR Coag (PPP) [Relative time] 0.9 {INR} Normal [facility] Comment on above: Performed By: #### L 300.3900, L100.1900, L300.4310 ####[facility] [address] [place], [address] PT Coag (PPP) [Time] 12.6 s Normal 11.7-14.9 [facility] Comment on above: Performed By: #### L 300.3900, L100.1900, L300.4310 ####[facility] [address] [place], [address] L2100.0000on 05-05-2024 ACCA 36 units Normal 0-90 [facility] Comment on above: Result Comment: Nega tive: <80 Equivocal: 80-90 Positive: >90 Performed By: #### L 2100.0000, L100.0100, L500.4050 ####[facility] [address] [place], [address] ALCA 24 units Normal 0-60 [facility] Comment on above: Result Comment: Nega tive:<55 Equivocal: 55-60 Positive: >60 Performed By: #### L 2100.0000, L100.0100, L500.4050 ####[facility] [id number] [place], [address] AMCA 0 units Normal 0-100 [facility] Comment on above: Result Comment: Nega tive: <90 Equivocal: 90-100 Positive: >100 This test was developed and its performance characteristics determined by [facility]. It has not been cleared or approved by the Food and Drug Administration. The FDA has determined that such clearance or approval is not necessary. Performed By: #### L 2100.0000, L100.0100, L500.4050 ####[facility] [id number] [place], [address] Atypical pANCA Positive Abnormal Negative [facility] Comment on above: Performed By: #### L 2100.0000, L100.0100, L500.4050 ####[facility] [address] [place], [address] COMMENT Comment Abnormal . [facility] Comment on above: Result Comment: Monetg estive of Ulcerative ColitisPerformed at: - [facility] [address] [id number] Director: Alison Ray MD, Phone: [phone] Performed By: #### L 2100.0000, L100.0100, L500.4050 ####[facility] [address] [place], [address] Makenna 16 units Normal 0-50 [facility] Comment on above: Result Comment: Nega tive: <45 Equivocal: 45-50 Positive: >50 Performed By: #### L 2100.0000, L100.0100, L500.4050 ####[facility] [address] [place], [address] CBC W/Diff, Automatedon 11-0 Absolute Lymph 1.61 X10 3/uL Normal 0.83-4.51 [facility] Comment on above: Performed By: #### L 2100.0000, L100.0100, L500.4050 ####[facility] [address] [place], [address] Absolute Neut 4.3 X10 3/uL Normal 2.0-7.7 [facility] Comment on above: Performed By: #### L 2100.0000, L100.0100, L500.4050 ####[facility] [address] [place], [address] Basophils/100 WBC (Bld) 0.7 % Normal 0-1 [facility] Comment on above: Performed By: #### L 2100.0000, L100.0100, L500.4050 ####[facility] [address] [place], [address] Eosinophils/100 WBC (Bld) 4.5 % Normal 0-5 [facility] Comment on above: Performed By: #### L 2100.0000, L100.0100, L500.4050 ####[facility] [address] [place], [address] Erythrocyte distribution width (RBC) [Ratio] 12.1 % Normal 11.6-14.6 [facility] Comment on above: Performed By: #### L 2100.0000, L100.0100, L500.4050 ####[facility] [address] [place], [address] Hematocrit (Bld) [Volume fraction] 46.9 % Normal 40-54 [facility] Comment on above: Performed By: #### L 2100.0000, L100.0100, L500.4050 ####[facility] [address] [place], [address] Hemoglobin (Bld) [Mass/Vol] 15.9 g/dL Normal 13.0-16.5 [facility] Comment on above: Performed By: #### L 2100.0000, L100.0100, L500.4050 ####[facility] [address] [place], [address] IG% 0.300 Normal 0.0-0.9 [facility] Comment on above: Result Comment: IG% - Immature Granulocytes (promyelocytes, myelocytes andmetamyelocytes) > 1% indicates that a LEFT SHIFT is Present. Performed By: #### L 2100.0000, L100.0100, L500.4050 ####[facility] [address] [place], [address] Lymphocytes/100 WBC (Bld) 23.6 % Normal 19-41 [facility] Comment on above: Performed By: #### L 2100.0000, L100.0100, L500.4050 ####[facility] [address] [place], [address] MCH (RBC) [Entitic mass] 30.1 pg Normal 27.0-32.0 [facility] Comment on above: Performed By: #### L 2100.0000, L100.0100, L500.4050 ####[facility] [address] [place], [address] MCHC (RBC) [Mass/Vol] 33.9 g/dL Normal 32-36 [facility] Comment on above: Performed By: #### L 2100.0000, L100.0100, L500.4050 ####[facility] [address] [place], [address] MCV (RBC) [Entitic vol] 88.8 fL Normal 80-94 [facility] Comment on above: Performed By: #### L 2100.0000, L100.0100, L500.4050 ####[facility] [address] [place], [address] Monocytes/100 WBC (Bld) 7.8 % Normal 0-10 [facility] Comment on above: Performed By: #### L 2100.0000, L100.0100, L500.4050 ####[facility] [address] [place], [address] Neutrophils/100 WBC (Bld) 63.1 % Normal 47-70 [facility] Comment on above: Performed By: #### L 2100.0000, L100.0100, L500.4050 ####[facility] [address] [place], [address] Nucleated RBC (Bld) [#/Vol] 0 10*3/uL Normal 0-5 [facility] Comment on above: Performed By: #### L 2100.0000, L100.0100, L500.4050 ####[facility] [address] [place], [address] Platelet mean volume (Bld) [Entitic vol] 9.1 fL Normal 6.2-12.0 [facility] Comment on above: Performed By: #### L 2100.0000, L100.0100, L500.4050 ####[facility] [address] [place], [address] Platelets (Bld) [#/Vol] 271 10*3/uL Normal 150-450 [facility] Comment on above: Performed By: #### L 2100.0000, L100.0100, L500.4050 ####[facility] [address] [place], [address] RBC (Bld) [#/Vol] 5.28 10*6/uL Normal 4.6-6.2 [facility] Comment on above: Performed By: #### L 2100.0000, L100.0100, L500.4050 ####[facility] [address] [place], [address] RDW SD 39.5 fl Normal 35.1-43.9 [facility] Comment on above: Performed By: #### L 2100.0000, L100.0100, L500.4050 ####[facility] [address] [place], [address] WBC (Bld) [#/Vol] 6.8 10*3/uL Normal 4.4-11.0 [facility] Comment on above: Performed By: #### L 2100.0000, L100.0100, L500.4050 ####[facility] [address] [place], [address] [facility] Albumin [Mass/Vol] 3.6 g/dL Normal 3.2-5.0 [facility] Comment on above: Performed By: #### L 2100.0000, L100.0100, L500.4050 ####[facility] [address] [place], [address] Albumin/Globulin [Mass ratio] 0.9 {ratio} Normal 0.9-2.4 [facility] Comment on above: Performed By: #### L 2100.0000, L100.0100, L500.4050 ####[facility] [address] [place], [address] ALK P 121 U/L High 45-117 [facility] Comment on above: Performed By: #### L 2100.0000, L100.0100, L500.4050 ####[facility] [address] [place], [address] ALT [Catalytic activity/Vol] 125 U/L High 16-61 [facility] Comment on above: Performed By: #### L 2100.0000, L100.0100, L500.4050 ####[facility] [address] [place], [address] AST [Catalytic activity/Vol] 50 U/L High 15-37 [facility] Comment on above: Performed By: #### L 2100.0000, L100.0100, L500.4050 ####[facility] [address] [place], [address] Bilirubin [Mass/Vol] 0.70 mg/dL Normal 0.20-1.00 [facility] Comment on above: Result Comment: For patients on eltrombopag therapy, use of Dimension [place] TBIL is not recommended. Performed By: #### L 2100.0000, L100.0100, L500.4050 ####[facility] [address] [place], [address] BUN/CRE 12.8 RATIO Normal 10-20 [facility] Comment on above: Performed By: #### L 2100.0000, L100.0100, L500.4050 ####[facility] [address] [place], [address] CA,Total 9.3 mg/dL Normal 8.5-10.1 [facility] Comment on above: Performed By: #### L 2100.0000, L100.0100, L500.4050 ####[facility] [address] [place], [address] Chloride [Moles/Vol] 110 mmol/L High 98-107 [facility] Comment on above: Performed By: #### L 2100.0000, L100.0100, L500.4050 ####[facility] [address] [place], [address] CO2 [Moles/Vol] 26.0 mmol/L Normal 21.0-32.0 [facility] Comment on above: Performed By: #### L 2100.0000, L100.0100, L500.4050 ####[facility] [address] [place], [address] Creatinine [Mass/Vol] 1.17 mg/dL Normal 0.70-1.30 [facility] Comment on above: Result Comment: The validity of the calculated GFR GFRAA in patients over70 years has not been determined. Clinical correlation isessential. Performed By: #### L 2100.0000, L100.0100, L500.4050 ####[facility] [address] [place], [address] EST GFR - AA 93 mL/min Normal >60 [facility] Comment on above: Result Comment: Afri can [place] GFR Calc Performed By: #### L 2100.0000, L100.0100, L500.4050 ####[facility] [address] [place], [address] GAP 5 Normal 5-15 [facility] Comment on above: Performed By: #### L 2100.0000, L100.0100, L500.4050 ####[facility] [address] [place], [address] GFR/1.73 sq M.predicted among non-blacks MDRD (S/P/Bld) [Vol rate/Area] 77 mL/min/{1.73_m2} Normal >60 [facility] Comment on above: Result Comment: Non- GFR Calc Performed By: #### L 2100.0000, L100.0100, L500.4050 ####[facility] [address] [place], [address] Globulin (S) [Mass/Vol] 3.8 g/dL Normal 2.2-4.2 [facility] Comment on above: Performed By: #### L 2100.0000, L100.0100, L500.4050 ####[facility] [address] [place], [address] Glucose [Mass/Vol] 109 mg/dL High 74-106 [facility] Comment on above: Result Comment: Fast ing Glucose result from 100 to 125 mg/dLsuggests IMPAIRED HOMEOSTASIS per A.D.A. criteria. Performed By: #### L 2100.0000, L100.0100, L500.4050 ####[facility] [address] [place], [address] Potassium [Moles/Vol] 4.2 mmol/L Normal 3.5-5.1 [facility] Comment on above: Performed By: #### L 2100.0000, L100.0100, L500.4050 ####[facility] [address] [place], [address] Sodium [Moles/Vol] 140 mmol/L Normal 136-145 [facility] Comment on above: Performed By: #### L 2100.0000, L100.0100, L500.4050 ####[facility] [address] [place], [address] T PROT 7.4 g/dL Normal 6.4-8.2 [facility] Comment on above: Performed By: #### L 2100.0000, L100.0100, L500.4050 ####[facility] [address] [place], [address] Urea nitrogen [Mass/Vol] 15 mg/dL Normal 7-18 [facility] Comment on above: Performed By: #### L 2100.0000, L100.0100, L500.4050 ####[facility] [address] [place], [address] Gastroenterology Visit Repor ton 04-30-2024 Gastroenterology Visit Report Normal [facility] Protein+Creatinine Ratio,Uri neon 04-29-2024 PROT:CRE RATIO 74 mg/g CRE Normal 0-200 [facility] Comment on above: Performed By: #### L 501.0900 ####[facility] [address] [place], [address] Protein (U) [Mass/Vol] 21.6 mg/dL High <11.9 [facility] Comment on above: Performed By: #### L 501.0900 ####[facility] [address] [place], [address] UR CREAT 291.00 mg/dL Normal NO RANGE EST. [facility] Comment on above: Performed By: #### L 501.0900 ####[facility] [address] [place], [address] Enterography Abd/Kurt 04-14 Enterography Abd/Pel Normal [facility] Internal Medicine Office Vis iton 03-24-2024 Internal Medicine Office Visit Normal [facility] Colonoscopy Reporton 024 Colonoscopy Report Normal [facility] MR/POSTOP.ANEon 03-09-2024 MR/POSTOP.ANE Normal [facility] MR/JKSREISP1th 03-09-2024 MR/POSTOPAN2 Normal [facility] Surgery Specimen Level Viky 03-09-2024 Surgery Specimen Level IV Normal [facility] Comment on above: Performed By: #### P SUIV ####[facility] [address] [place], [address] Surgery Visit Reporton 03-02 Surgery Visit Report Normal [facility] CBC W/Diff, Automatedon 01-29 Absolute Lymph 1.21 X10 3/uL Normal 0.83-4.51 [facility] Comment on above: Performed By: #### L 100.0100, L500.4050 ####[facility] [address] [place], [address] Absolute Neut 14.0 X10 3/uL High 2.0-7.7 [facility] Comment on above: Performed By: #### L 100.0100, L500.4050 ####[facility] [address] [place], [address] Basophils/100 WBC (Bld) 0.1 % Normal 0-1 [facility] Comment on above: Performed By: #### L 100.0100, L500.4050 ####[facility] [address] [place], [address] Eosinophils/100 WBC (Bld) 0.0 % Normal 0-5 [facility] Comment on above: Performed By: #### L 100.0100, L500.4050 ####[facility] [address] [place], [address] Erythrocyte distribution width (RBC) [Ratio] 12.1 % Normal 11.6-14.6 [facility] Comment on above: Performed By: #### L 100.0100, L500.4050 ####[facility] [address] [place], [address] Hematocrit (Bld) [Volume fraction] 46.9 % Normal 40-54 [facility] Comment on above: Performed By: #### L 100.0100, L500.4050 ####[facility] [address] [place], [address] Hemoglobin (Bld) [Mass/Vol] 16.0 g/dL Normal 13.0-16.5 [facility] Comment on above: Performed By: #### L 100.0100, L500.4050 ####[facility] [address] [place], [address] IG% 0.500 Normal 0.0-0.9 [facility] Comment on above: Result Comment: IG% - Immature Granulocytes (promyelocytes, myelocytes andmetamyelocytes) > 1% indicates that a LEFT SHIFT is Present. Performed By: #### L 100.0100, L500.4050 ####[facility] [address] [place], [address] Lymphocytes/100 WBC (Bld) 7.6 % Low 19-41 [facility] Comment on above: Performed By: #### L 100.0100, L500.4050 ####[facility] [address] [place], [address] MCH (RBC) [Entitic mass] 30.7 pg Normal 27.0-32.0 [facility] Comment on above: Performed By: #### L 100.0100, L500.4050 ####[facility] [address] [place], [address] MCHC (RBC) [Mass/Vol] 34.1 g/dL Normal 32-36 [facility] Comment on above: Performed By: #### L 100.0100, L500.4050 ####[facility] [address] [place], [address] MCV (RBC) [Entitic vol] 89.8 fL Normal 80-94 [facility] Comment on above: Performed By: #### L 100.0100, L500.4050 ####[facility] [address] [place], [address] Monocytes/100 WBC (Bld) 3.5 % Normal 0-10 [facility] Comment on above: Performed By: #### L 100.0100, L500.4050 ####[facility] [address] [place], [address] Neutrophils/100 WBC (Bld) 88.3 % High 47-70 [facility] Comment on above: Performed By: #### L 100.0100, L500.4050 ####[facility] [address] [place], [address] Nucleated RBC (Bld) [#/Vol] 0 10*3/uL Normal 0-5 [facility] Comment on above: Performed By: #### L 100.0100, L500.4050 ####[facility] [address] [place], [address] Platelet mean volume (Bld) [Entitic vol] 9.5 fL Normal 6.2-12.0 [facility] Comment on above: Performed By: #### L 100.0100, L500.4050 ####[facility] [address] [place], [address] Platelets (Bld) [#/Vol] 276 10*3/uL Normal 150-450 [facility] Comment on above: Performed By: #### L 100.0100, L500.4050 ####[facility] [address] [place], [address] RBC (Bld) [#/Vol] 5.22 10*6/uL Normal 4.6-6.2 [facility] Comment on above: Performed By: #### L 100.0100, L500.4050 ####[facility] [address] [place], [address] RDW SD 39.8 fl Normal 35.1-43.9 [facility] Comment on above: Performed By: #### L 100.0100, L500.4050 ####[facility] [address] [place], [address] WBC (Bld) [#/Vol] 15.8 10*3/uL High 4.4-11.0 [facility] Comment on above: Performed By: #### L 100.0100, L500.4050 ####[facility] [address] [place], [address] Comprehensive Metabolic Prof ilon 02-18-2024 Albumin [Mass/Vol] 3.5 g/dL Normal 3.2-5.0 [facility] Comment on above: Performed By: #### L 100.0100, L500.4050 ####[facility] [address] [place], [address] Albumin/Globulin [Mass ratio] 0.8 {ratio} Low 0.9-2.4 [facility] Comment on above: Performed By: #### L 100.0100, L500.4050 ####[facility] [address] [place], [address] ALK P 120 U/L High 45-117 [facility] Comment on above: Performed By: #### L 100.0100, L500.4050 ####[facility] [address] [place], [address] ALT [Catalytic activity/Vol] 130 U/L High 16-61 [facility] Comment on above: Performed By: #### L 100.0100, L500.4050 ####[facility] [address] [place], [address] AST [Catalytic activity/Vol] 55 U/L High 15-37 [facility] Comment on above: Performed By: #### L 100.0100, L500.4050 ####[facility] [address] [place], [address] Bilirubin [Mass/Vol] 0.60 mg/dL Normal 0.20-1.00 [facility] Comment on above: Result Comment: For patients on eltrombopag therapy, use of Dimension [place] TBIL is not recommended. Performed By: #### L 100.0100, L500.4050 ####[facility] [address] [place], [address] BUN/CRE 11.3 RATIO Normal 10-20 [facility] Comment on above: Performed By: #### L 100.0100, L500.4050 ####[facility] [address] [place], [address] CA,Total 9.9 mg/dL Normal 8.5-10.1 [facility] Comment on above: Performed By: #### L 100.0100, L500.4050 ####[facility] [address] [place], [address] Chloride [Moles/Vol] 106 mmol/L Normal 98-107 [facility] Comment on above: Performed By: #### L 100.0100, L500.4050 ####[facility] [address] [place], [address] CO2 [Moles/Vol] 26.0 mmol/L Normal 21.0-32.0 [facility] Comment on above: Performed By: #### L 100.0100, L500.4050 ####[facility] [address] [place], [address] Creatinine [Mass/Vol] 1.06 mg/dL Normal 0.70-1.30 [facility] Comment on above: Result Comment: The validity of the calculated GFR GFRAA in patients over70 years has not been determined. Clinical correlation isessential. Performed By: #### L 100.0100, L500.4050 ####[facility] [address] [place], [address] ECRCL 130.25 ml/min Normal [facility] Comment on above: Performed By: #### L 100.0100, L500.4050 ####[facility] [address] [place], [address] EST GFR - AA 105 mL/min Normal >60 [facility] Comment on above: Result Comment: Afri can [place] GFR Calc Performed By: #### L 100.0100, L500.4050 ####[facility] [address] [place], [address] GAP 5 Normal 5-15 [facility] Comment on above: Performed By: #### L 100.0100, L500.4050 ####[facility] [address] [place], [address] GFR/1.73 sq M.predicted among non-blacks MDRD (S/P/Bld) [Vol rate/Area] 87 mL/min/{1.73_m2} Normal >60 [facility] Comment on above: Result Comment: Non- GFR Calc Performed By: #### L 100.0100, L500.4050 ####[facility] [address] [place], [address] Globulin (S) [Mass/Vol] 4.3 g/dL High 2.2-4.2 [facility] Comment on above: Performed By: #### L 100.0100, L500.4050 ####[facility] [address] [place], [address] Glucose [Mass/Vol] 135 mg/dL High 74-106 [facility] Comment on above: Result Comment: Fast ing Glucose result greater than or equal to 126 mg/dLsuggests DIABETES MELLITUS per A.D.A. criteria. Performed By: #### L 100.0100, L500.4050 ####[facility] [address] [place], [address] Potassium [Moles/Vol] 4.1 mmol/L Normal 3.5-5.1 [facility] Comment on above: Performed By: #### L 100.0100, L500.4050 ####[facility] [address] [place], [address] Sodium [Moles/Vol] 137 mmol/L Normal 136-145 [facility] Comment on above: Performed By: #### L 100.0100, L500.4050 ####[facility] [address] [place], [address] T PROT 7.8 g/dL Normal 6.4-8.2 [facility] Comment on above: Performed By: #### L 100.0100, L500.4050 ####[facility] [address] [place], [address] Urea nitrogen [Mass/Vol] 12 mg/dL Normal 7-18 [facility] Comment on above: Performed By: #### L 100.0100, L500.4050 ####[facility] [address] [place], [address] Discharge Instructionon 01-29 Discharge Instruction Normal [facility] 12 Lead EKGon 02-17-2024 12 Lead EKG Normal [facility] Abdomen/Pelvis W IV Cont ONL Yon 02-17-2024 Abdomen/Pelvis W IV Cont ONLY Normal [facility] CBC W/Diff, Automatedon 01-29 Absolute Lymph 1.92 X10 3/uL Normal 0.83-4.51 [facility] Comment on above: Performed By: #### L 500.4050, L501.2450, L100.0100 ####[facility] [address] [place], [address] Absolute Neut 6.6 X10 3/uL Normal 2.0-7.7 [facility] Comment on above: Performed By: #### L 500.4050, L501.2450, L100.0100 ####[facility] [address] [place], [address] Basophils/100 WBC (Bld) 0.5 % Normal 0-1 [facility] Comment on above: Performed By: #### L 500.4050, L501.2450, L100.0100 ####[facility] [address] [place], [address] Eosinophils/100 WBC (Bld) 3.1 % Normal 0-5 [facility] Comment on above: Performed By: #### L 500.4050, L501.2450, L100.0100 ####[facility] [address] [place], [address] Erythrocyte distribution width (RBC) [Ratio] 12.1 % Normal 11.6-14.6 [facility] Comment on above: Performed By: #### L 500.4050, L501.2450, L100.0100 ####[facility] [address] [place], [address] Hematocrit (Bld) [Volume fraction] 46.8 % Normal 40-54 [facility] Comment on above: Performed By: #### L 500.4050, L501.2450, L100.0100 ####[facility] [address] [place], [address] Hemoglobin (Bld) [Mass/Vol] 16.5 g/dL Normal 13.0-16.5 [facility] Comment on above: Performed By: #### L 500.4050, L501.2450, L100.0100 ####[facility] [address] [place], [address] IG% 0.300 Normal 0.0-0.9 [facility] Comment on above: Result Comment: IG% - Immature Granulocytes (promyelocytes, myelocytes andmetamyelocytes) > 1% indicates that a LEFT SHIFT is Present. Performed By: #### L 500.4050, L501.2450, L100.0100 ####[facility] [address] [place], [address] Lymphocytes/100 WBC (Bld) 20.2 % Normal 19-41 [facility] Comment on above: Performed By: #### L 500.4050, L501.2450, L100.0100 ####[facility] [address] [place], [address] MCH (RBC) [Entitic mass] 31.3 pg Normal 27.0-32.0 [facility] Comment on above: Performed By: #### L 500.4050, L501.2450, L100.0100 ####[facility] [address] [place], [address] MCHC (RBC) [Mass/Vol] 35.3 g/dL Normal 32-36 [facility] Comment on above: Performed By: #### L 500.4050, L501.2450, L100.0100 ####[facility] [address] [place], [address] MCV (RBC) [Entitic vol] 88.8 fL Normal 80-94 [facility] Comment on above: Performed By: #### L 500.4050, L501.2450, L100.0100 ####[facility] [address] [place], [address] Monocytes/100 WBC (Bld) 6.9 % Normal 0-10 [facility] Comment on above: Performed By: #### L 500.4050, L501.2450, L100.0100 ####[facility] [address] [place], [address] Neutrophils/100 WBC (Bld) 69.0 % Normal 47-70 [facility] Comment on above: Performed By: #### L 500.4050, L501.2450, L100.0100 ####[facility] [address] [place], [address] Nucleated RBC (Bld) [#/Vol] 0 10*3/uL Normal 0-5 [facility] Comment on above: Performed By: #### L 500.4050, L501.2450, L100.0100 ####[facility] [id number] [place], [address] Platelet mean volume (Bld) [Entitic vol] 9.5 fL Normal 6.2-12.0 [facility] Comment on above: Performed By: #### L 500.4050, L501.2450, L100.0100 ####[facility] [id number] [place], [address] Platelets (Bld) [#/Vol] 273 10*3/uL Normal 150-450 [facility] Comment on above: Performed By: #### L 500.4050, L501.2450, L100.0100 ####[facility] [id number] [place], [address] RBC (Bld) [#/Vol] 5.27 10*6/uL Normal 4.6-6.2 [facility] Comment on above: Performed By: #### L 500.4050, L501.2450, L100.0100 ####[facility] [id number] [place], [address] RDW SD 39.5 fl Normal 35.1-43.9 [facility] Comment on above: Performed By: #### L 500.4050, L501.2450, L100.0100 ####[facility] [id number] [place], [address] WBC (Bld) [#/Vol] 9.5 10*3/uL Normal 4.4-11.0 [facility] Comment on above: Performed By: #### L 500.4050, L501.2450, L100.0100 ####[facility] [address] [place], [address] Cholangiogram/ O R,Initialon 02-17-2024 Cholangiogram/ O R,Initial Normal [facility] Comprehensive Metabolic Prof ilon 02-17-2024 Albumin [Mass/Vol] 3.7 g/dL Normal 3.2-5.0 [facility] Comment on above: Performed By: #### L 500.4050, L501.2450, L100.0100 ####[facility] [address] [place], [address] Albumin/Globulin [Mass ratio] 0.9 {ratio} Normal 0.9-2.4 [facility] Comment on above: Performed By: #### L 500.4050, L501.2450, L100.0100 ####[facility] [address] [place], [address] ALK P 128 U/L High 45-117 [facility] Comment on above: Performed By: #### L 500.4050, L501.2450, L100.0100 ####[facility] [address] [place], [address] ALT [Catalytic activity/Vol] 129 U/L High 16-61 [facility] Comment on above: Performed By: #### L 500.4050, L501.2450, L100.0100 ####[facility] [address] [place], [address] AST [Catalytic activity/Vol] 49 U/L High 15-37 [facility] Comment on above: Performed By: #### L 500.4050, L501.2450, L100.0100 ####[facility] [address] [place], [address] Bilirubin [Mass/Vol] 0.50 mg/dL Normal 0.20-1.00 [facility] Comment on above: Result Comment: For patients on eltrombopag therapy, use of Dimension [place] TBIL is not recommended. Performed By: #### L 500.4050, L501.2450, L100.0100 ####[facility] [address] [place], [address] BUN/CRE 9.8 RATIO Low 10-20 [facility] Comment on above: Performed By: #### L 500.4050, L501.2450, L100.0100 ####[facility] [address] [place], [address] CA,Total 9.6 mg/dL Normal 8.5-10.1 [facility] Comment on above: Performed By: #### L 500.4050, L501.2450, L100.0100 ####[facility] [address] [place], [address] Chloride [Moles/Vol] 107 mmol/L Normal 98-107 [facility] Comment on above: Performed By: #### L 500.4050, L501.2450, L100.0100 ####[facility] [address] [place], [address] CO2 [Moles/Vol] 26.0 mmol/L Normal 21.0-32.0 [facility] Comment on above: Performed By: #### L 500.4050, L501.2450, L100.0100 ####[facility] [address] [place], [address] Creatinine [Mass/Vol] 1.23 mg/dL Normal 0.70-1.30 [facility] Comment on above: Result Comment: The validity of the calculated GFR GFRAA in patients over70 years has not been determined. Clinical correlation isessential. Performed By: #### L 500.4050, L501.2450, L100.0100 ####[facility] [address] [place], [address] ECRCL 112.45 ml/min Normal [facility] Comment on above: Performed By: #### L 500.4050, L501.2450, L100.0100 ####[facility] [address] [place], [address] EST GFR - AA 88 mL/min Normal >60 [facility] Comment on above: Result Comment: Afri can [place] GFR Calc Performed By: #### L 500.4050, L501.2450, L100.0100 ####[facility] [address] [place], [address] GAP 6 Normal 5-15 [facility] Comment on above: Performed By: #### L 500.4050, L501.2450, L100.0100 ####[facility] [address] [place], [address] GFR/1.73 sq M.predicted among non-blacks MDRD (S/P/Bld) [Vol rate/Area] 73 mL/min/{1.73_m2} Normal >60 [facility] Comment on above: Result Comment: Non- GFR Calc Performed By: #### L 500.4050, L501.2450, L100.0100 ####[facility] [address] [place], [address] Globulin (S) [Mass/Vol] 4.2 g/dL Normal 2.2-4.2 [facility] Comment on above: Performed By: #### L 500.4050, L501.2450, L100.0100 ####[facility] [address] [place], [address] Glucose [Mass/Vol] 110 mg/dL High 74-106 [facility] Comment on above: Result Comment: Fast ing Glucose result from 100 to 125 mg/dLsuggests IMPAIRED HOMEOSTASIS per A.D.A. criteria. Performed By: #### L 500.4050, L501.2450, L100.0100 ####[facility] [address] [place], [address] Potassium [Moles/Vol] 4.1 mmol/L Normal 3.5-5.1 [facility] Comment on above: Performed By: #### L 500.4050, L501.2450, L100.0100 ####[facility] [address] [place], [address] Sodium [Moles/Vol] 139 mmol/L Normal 136-145 [facility] Comment on above: Performed By: #### L 500.4050, L501.2450, L100.0100 ####[facility] [address] [place], [address] T PROT 7.9 g/dL Normal 6.4-8.2 [facility] Comment on above: Performed By: #### L 500.4050, L501.2450, L100.0100 ####[facility] [address] [place], [address] Urea nitrogen [Mass/Vol] 12 mg/dL Normal 7-18 [facility] Comment on above: Performed By: #### L 500.4050, L501.2450, L100.0100 ####[facility] [address] [place], [address] Emergency Department Summary on 02-17-2024 Emergency Department Summary Normal [facility] Gallbladderon 02-17-2024 Gallbladder Normal [facility] Lipaseon 02-17-2024 Lipase [Catalytic activity/Vol] 57 U/L Normal 13-75 [facility] Comment on above: Result Comment: Plea se note:LIPASE revised reference range effective 22.New Lipase methodology. Expected to produce lower valuesthan the previous assay method.NEW Reference Range: 13 - 75 U/L Performed By: #### L 500.4050, L501.2450, L100.0100 ####[facility] [address] [place], [address] MR/POSTOP.ANEon 02-17-2024 MR/POSTOP.ANE Normal [facility] MR/GPAGDWKF3kn 02-17-2024 MR/POSTOPAN2 Normal [facility] Operative Reporton Operative Report Normal [facility] Surgery Specimen Level IIIon 02-17-2024 Surgery Specimen Level III Normal [facility] Comment on above: Performed By: #### P SUIII ####[facility] [address] [place], [address] Urinalysis, Completeon 02-16 WBC 0-5 SEEN Normal 0-5 [facility] Comment on above: Order Comment: COLLE CTOR TO SPECIFY Performed By: #### L 400.0001 ####[facility] [address] [place], [address] BACTERIA 0 SEEN Normal None Seen [facility] Comment on above: Order Comment: COLLE CTOR TO SPECIFY Performed By: #### L 400.0001 ####[facility] [address] [place], [address] EPI,SQUAMOUS 0 SEEN Normal 0-5 [facility] Comment on above: Order Comment: COLLE CTOR TO SPECIFY Performed By: #### L 400.0001 ####[facility] [address] [place], [address] Mucus Ql (Urine sed) 0 SEEN Normal [facility] Comment on above: Order Comment: COLLE CTOR TO SPECIFY Performed By: #### L 400.0001 ####[facility] [address] [place], [address] RBC 0 SEEN Normal 0-5 [facility] Comment on above: Order Comment: COLLE CTOR TO SPECIFY Performed By: #### L 400.0001 ####[facility] [address] [place], [address] CBC W/Diff, Automatedon 08- Absolute Lymph 2.84 X10 3/uL Normal 0.83-4.51 [facility] Comment on above: Performed By: #### L 500.4050, L501.2450, L100.0100 ####[facility] [address] [place], [address] Absolute Neut 6.0 X10 3/uL Normal 2.0-7.7 [facility] Comment on above: Performed By: #### L 500.4050, L501.2450, L100.0100 ####[facility] [address] [place], [address] Basophils/100 WBC (Bld) 0.6 % Normal 0-1 [facility] Comment on above: Performed By: #### L 500.4050, L501.2450, L100.0100 ####[facility] [address] [place], [address] Eosinophils/100 WBC (Bld) 4.2 % Normal 0-5 [facility] Comment on above: Performed By: #### L 500.4050, L501.2450, L100.0100 ####[facility] [address] [place], [address] Erythrocyte distribution width (RBC) [Ratio] 11.9 % Normal 11.6-14.6 [facility] Comment on above: Performed By: #### L 500.4050, L501.2450, L100.0100 ####[facility] [address] [place], [address] Hematocrit (Bld) [Volume fraction] 49.8 % Normal 40-54 [facility] Comment on above: Performed By: #### L 500.4050, L501.2450, L100.0100 ####[facility] [address] [place], [address] Hemoglobin (Bld) [Mass/Vol] 17.2 g/dL High 13.0-16.5 [facility] Comment on above: Performed By: #### L 500.4050, L501.2450, L100.0100 ####[facility] [address] [place], [address] IG% 0.300 Normal 0.0-0.9 [facility] Comment on above: Result Comment: IG% - Immature Granulocytes (promyelocytes, myelocytes andmetamyelocytes) > 1% indicates that a LEFT SHIFT is Present. Performed By: #### L 500.4050, L501.2450, L100.0100 ####[facility] [address] [place], [address] Lymphocytes/100 WBC (Bld) 28.1 % Normal 19-41 [facility] Comment on above: Performed By: #### L 500.4050, L501.2450, L100.0100 ####[facility] [address] [place], [address] MCH (RBC) [Entitic mass] 30.6 pg Normal 27.0-32.0 [facility] Comment on above: Performed By: #### L 500.4050, L501.2450, L100.0100 ####[facility] [address] [place], [address] MCHC (RBC) [Mass/Vol] 34.5 g/dL Normal 32-36 [facility] Comment on above: Performed By: #### L 500.4050, L501.2450, L100.0100 ####[facility] [address] [place], [address] MCV (RBC) [Entitic vol] 88.5 fL Normal 80-94 [facility] Comment on above: Performed By: #### L 500.4050, L501.2450, L100.0100 ####[facility] [address] [place], [address] Monocytes/100 WBC (Bld) 7.0 % Normal 0-10 [facility] Comment on above: Performed By: #### L 500.4050, L501.2450, L100.0100 ####[facility] [address] [place], [address] Neutrophils/100 WBC (Bld) 59.8 % Normal 47-70 [facility] Comment on above: Performed By: #### L 500.4050, L501.2450, L100.0100 ####[facility] [address] [place], [address] Nucleated RBC (Bld) [#/Vol] 0 10*3/uL Normal 0-5 [facility] Comment on above: Performed By: #### L 500.4050, L501.2450, L100.0100 ####[facility] [address] [place], [address] Platelet mean volume (Bld) [Entitic vol] 9.3 fL Normal 6.2-12.0 [facility] Comment on above: Performed By: #### L 500.4050, L501.2450, L100.0100 ####[facility] [address] [place], [address] Platelets (Bld) [#/Vol] 284 10*3/uL Normal 150-450 [facility] Comment on above: Performed By: #### L 500.4050, L501.2450, L100.0100 ####[facility] [address] [place], [address] RBC (Bld) [#/Vol] 5.63 10*6/uL Normal 4.6-6.2 [facility] Comment on above: Performed By: #### L 500.4050, L501.2450, L100.0100 ####[facility] [address] [place], [address] RDW SD 39.0 fl Normal 35.1-43.9 [facility] Comment on above: Performed By: #### L 500.4050, L501.2450, L100.0100 ####[facility] [address] [place], [address] WBC (Bld) [#/Vol] 10.1 10*3/uL Normal 4.4-11.0 [facility] Comment on above: Performed By: #### L 500.4050, L501.2450, L100.0100 ####[facility] [address] [place], [address] Comprehensive [facility] Prof [facility] Albumin [Mass/Vol] 3.9 g/dL Normal 3.2-5.0 [facility] Comment on above: Performed By: #### L 500.4050, L501.2450, L100.0100 ####[facility] [address] [place], [address] Albumin/Globulin [Mass ratio] 0.9 {ratio} Normal 0.9-2.4 [facility] Comment on above: Performed By: #### L 500.4050, L501.2450, L100.0100 ####[facility] [address] [place], [address] ALK P 146 U/L High 45-117 [facility] Comment on above: Performed By: #### L 500.4050, L501.2450, L100.0100 ####[facility] [address] [place], [address] ALT [Catalytic activity/Vol] 147 U/L High 16-61 [facility] Comment on above: Performed By: #### L 500.4050, L501.2450, L100.0100 ####[facility] [address] [place], [address] AST [Catalytic activity/Vol] 58 U/L High 15-37 [facility] Comment on above: Performed By: #### L 500.4050, L501.2450, L100.0100 ####[facility] [address] [place], [address] Bilirubin [Mass/Vol] 0.30 mg/dL Normal 0.20-1.00 [facility] Comment on above: Result Comment: For patients on eltrombopag therapy, use of Dimension [place] TBIL is not recommended. Performed By: #### L 500.4050, L501.2450, L100.0100 ####[facility] [address] [place], [address] BUN/CRE 9.1 RATIO Low 10-20 [facility] Comment on above: Performed By: #### L 500.4050, L501.2450, L100.0100 ####[facility] [address] [place], [address] CA,Total 9.8 mg/dL Normal 8.5-10.1 [facility] Comment on above: Performed By: #### L 500.4050, L501.2450, L100.0100 ####[facility] [address] [place], [address] Chloride [Moles/Vol] 109 mmol/L High 98-107 [facility] Comment on above: Performed By: #### L 500.4050, L501.2450, L100.0100 ####[facility] [address] [place], [address] CO2 [Moles/Vol] 28.0 mmol/L Normal 21.0-32.0 [facility] Comment on above: Performed By: #### L 500.4050, L501.2450, L100.0100 ####[facility] [address] [place], [address] Creatinine [Mass/Vol] 1.10 mg/dL Normal 0.70-1.30 [facility] Comment on above: Result Comment: The validity of the calculated GFR GFRAA in patients over70 years has not been determined. Clinical correlation isessential. Performed By: #### L 500.4050, L501.2450, L100.0100 ####[facility] [address] [place], [address] ECRCL 125.43 ml/min Normal [facility] Comment on above: Performed By: #### L 500.4050, L501.2450, L100.0100 ####[facility] [address] [place], [address] EST GFR - AA 100 mL/min Normal >60 [facility] Comment on above: Result Comment: Afri can [place] GFR Calc Performed By: #### L 500.4050, L501.2450, L100.0100 ####[facility] [address] [place], [address] GAP 5 Normal 5-15 [facility] Comment on above: Performed By: #### L 500.4050, L501.2450, L100.0100 ####[facility] [address] [place], [address] GFR/1.73 sq M.predicted among non-blacks MDRD (S/P/Bld) [Vol rate/Area] 83 mL/min/{1.73_m2} Normal >60 [facility] Comment on above: Result Comment: Non- GFR Calc Performed By: #### L 500.4050, L501.2450, L100.0100 ####[facility] [address] [place], [address] Globulin (S) [Mass/Vol] 4.2 g/dL Normal 2.2-4.2 [facility] Comment on above: Performed By: #### L 500.4050, L501.2450, L100.0100 ####[facility] [address] [place], [address] Glucose [Mass/Vol] 99 mg/dL Normal 74-106 [facility] Comment on above: Performed By: #### L 500.4050, L501.2450, L100.0100 ####[facility] [address] [place], [address] Potassium [Moles/Vol] 3.7 mmol/L Normal 3.5-5.1 [facility] Comment on above: Performed By: #### L 500.4050, L501.2450, L100.0100 ####[facility] [address] [place], [address] Sodium [Moles/Vol] 142 mmol/L Normal 136-145 [facility] Comment on above: Performed By: #### L 500.4050, L501.2450, L100.0100 ####[facility] [address] [place], [address] T PROT 8.1 g/dL Normal 6.4-8.2 [facility] Comment on above: Performed By: #### L 500.4050, L501.2450, L100.0100 ####[facility] [address] [place], [address] Urea nitrogen [Mass/Vol] 10 mg/dL Normal 7-18 [facility] Comment on above: Performed By: #### L 500.4050, L501.2450, L100.0100 ####[facility] [address] [place], [address] Emergency Department Summary on 02-15-2024 Emergency Department Summary Normal [facility] Lipaseon 02-15-2024 Lipase [Catalytic activity/Vol] 58 U/L Normal 13-75 [facility] Comment on above: Result Comment: Plea se note:LIPASE revised reference range effective 22.New Lipase methodology. Expected to produce lower valuesthan the previous assay method.NEW Reference Range: 13 - 75 U/L Performed By: #### L 500.4050, L501.2450, L100.0100 ####[facility] [address] [place], [address] Urinalysis, Completeon 02-14 EPI,SQUAMOUS 0-5 SEEN Normal 0-5 [facility] Comment on above: Order Comment: CLEAN CATCH Performed By: #### L 400.0001 ####[facility] [address] [place], [address] WBC 0-5 SEEN Normal 0-5 [facility] Comment on above: Order Comment: CLEAN CATCH Performed By: #### L 400.0001 ####[facility] [address] [facility] [address] BACTERIA 0 SEEN Normal None Seen [facility] Comment on above: Order Comment: CLEAN CATCH Performed By: #### L 400.0001 ####[facility] [address] [place], [address] Mucus Ql (Urine sed) 0 SEEN Normal [facility] Comment on above: Order Comment: CLEAN CATCH Performed By: #### L 400.0001 ####[facility] [address] [place], [address] RBC 0 SEEN Normal 0-5 [facility] Comment on above: Order Comment: CLEAN CATCH Performed By: #### L 400.0001 ####[facility] [address] [facility] [address] Elastography Parenchyma/Orga non 02-12-2024 Elastography Parenchyma/Organ Normal [facility] L7000.0750on 02-10-2024 P ELASTASE,FECA > 800 Normal >200 [facility] Comment on above: Result Comment: Resu lt Units: ug Elast./g Severe Pancreatic Insufficiency: <100 Moderate Pancreatic Insufficiency: 100 - 200 Normal: >200Performed at: [facility] [id number] Director: Alison Ray MD, Phone: [phone] Performed By: #### M 100.0605, L7000.0750, L7000.0700 ####[facility] [address] [place], [place], [id number] Calprotectin, Stoolon [address] 191 ug/g Abnormal 0-120 [facility] Comment on above: Result Comment: Conc entration Interpretation Follow-Up< 5 - 50 ug/g Normal None>50 -120 ug/g Borderline Re-evaluate in 4-6 weeks >120 ug/g Abnormal Repeat as clinically indicatedPerformed at: [facility] [id number] Director: Alison Ray MD, Phone: [phone] Performed By: #### M 100.0605, L7000.0750, L7000.0700 ####[facility] [address] [place], [place], [address] EGD Reporton 02-03-2024 EGD Report Normal [facility] H Pylori (initial)on 024 H Pylori (initial) Normal [facility] Comment on above: Performed By: #### P H.PYLORI ####[facility] [address] [place], [place], [id number] Hemoglobin A1con 02-03-2024 HbA1c (Bld) [Mass fraction] 5.6 % Normal 3.8-5.6 [facility] Comment on above: Result Comment: Norm al < 5.7 % Prediabetic 5.7 - 6.4 % Diabetic >or= 6.5 % Please note range changes. Performed By: #### L 501.9985 ####[facility] [address] [place], [place], [address] MR/POSTOP.ANEon 02-03-2024 MR/POSTOP.ANE Normal [facility] MR/VUVUUEWG1pv 02-03-2024 MR/POSTOPAN2 Normal [facility] Special Stain Group Ion -0 Special Stain Group I Normal [facility] Comment on above: Performed By: #### P SSI ####[facility] [address] [place], [place], [address] Stool Lactoferrin/WBCon WBCST Normal Reference Ran ge = Negative Fecal WBC Lactoferrin A Positive: Fecal WBC Lactoferrin present A Normal [facility] Comment on above: Performed By: #### M 100.0605, L7000.0750, L7000.0700 ####[facility] [address] [place], [place], [address] .Auto Diffon 01-04-2024 Basophil, Absolute 0.1 10 3/mcL Normal 0.0-0.2 [facility] ([place]) Comment on above: Performed By: #### G FR, LIP, CBC, ADIFF, CMP, CINDY SUMNER #### [address] [address] Basophils/100 WBC (Bld) 0.6 % Normal 0.0-2.5 [facility] ([place]) Comment on above: Performed By: #### G FR, LIP, CBC, ADIFF, BURAK ACHARYA MDW #### [address] [address] Eosinophil, Absolute 0.4 10 3/mcL Normal 0.0-0.4 [facility] ([place]) Comment on above: Performed By: #### G FR, LIP, CBC, ADIFF, CMP, CINDY SUMNER #### [address] [address] Eosinophils/100 WBC (Bld) 4.0 % Normal 0.0-7.0 [facility] ([place]) Comment on above: Performed By: #### G FR, LIP, CBC, ADIFF, CMP, CINDY SUMNER #### [address] [address] Lymphocyte, Absolute 2.4 10 3/mcL Normal 0.8-3.9 [facility] ([place]) Comment on above: Performed By: #### G FR, LIP, CBC, ADIFF, CMP, CINDY SUMNER #### [address] [address] Lymphocytes/100 WBC (Bld) 23.7 % Normal 10.0-50.0 [facility] ([place]) Comment on above: Performed By: #### G FR, LIP, CBC, ADIFF, CMP, CINDY SUMNER #### [address] [address] Monocyte, Absolute 0.8 10 3/mcL Normal 0.2-1.0 [facility] ([place]) Comment on above: Performed By: #### G FR, LIP, CBC, ADIFF, CMP, CINDY SUMNER #### [address] [address] Monocytes/100 WBC (Bld) 7.6 % Normal 1.7-13.0 [facility] ([place]) Comment on above: Performed By: #### G FR, LIP, CBC, ADIFF, CMP, CINDY SUMNER #### [address] [address] Neutrophils/100 WBC (Bld) 64.1 % Normal 37.0-80.0 [facility] ([place]) Comment on above: Performed By: #### G FR, LIP, CBC, ADIFF, CMP, CINDY SUMNER #### [address] [address] .GFRon 01-04-2024 GFR Non- 67 ml/min/1.73sqm Normal [facility] ([place]) Comment on above: Result Comment: GFR Population [...] LIP, CBC, ADIFF, CMP, ANEU, MDW #### [address] [address] GFR 82 ml/min/1.73sqm Normal [facility] ([place]) Comment on above: Result Comment: GFR Population [...] LIP, CBC, ADIFF, CMP, ANEU, MDW #### [address] [address] .MDWon 01-04-2024 Monocyte Distribution Width 19.58 Normal 0.00-20.00 [facility] ([place]) Comment on above: Result Comment: For ED adult patients suspected of sepsis, MDW<=20.0 does not rule out sepsis or risk of sepsis Performed By: #### G FR, LIP, CBC, ADIFF, CMP, CINDY SUMNER #### [address] [address] .NEUABSon 01-04-2024 Neutrophil, Absolute 6.4 10 3/mcL High 2.9-6.2 [facility] ([place]) Comment on above: Performed By: #### G FR, LIP, CBC, ADIFF, CMP, CINDY SUMNER #### [place] [id number] CBCon 01-04-2024 Erythrocyte distribution width (RBC) [Ratio] 13.2 % Normal 11.5-14.5 [facility] ([place]) Comment on above: Performed By: #### G FR, LIP, CBC, ADIFF, CMP, CINDY SUMNER #### [place] [address] Hematocrit (Bld) [Volume fraction] 49.3 % Normal 42.0-52.0 [facility] ([place]) Comment on above: Performed By: #### G FR, LIP, CBC, ADIFF, CMP, CINDY SUMNER #### [place] [address] Hgb 17.4 G/dL Normal 14.0-18.0 [facility] ([place]) Comment on above: Performed By: #### G FR, LIP, CBC, ADIFF, CMP, CINDY SUMNER #### [place] [address] MCH (RBC) [Entitic mass] 31.8 pg High 27.0-31.2 [facility] ([place]) Comment on above: Performed By: #### G FR, LIP, CBC, ADIFF, CMP, CINDY SUMNER #### [place] [address] MCHC 35.3 G/dL Normal 31.8-35.4 [facility] ([place]) Comment on above: Performed By: #### G FR, LIP, CBC, ADIFF, CMP, CINDY SUMNER #### [place] [place] [address] [place], [place] [address] MCV (RBC) [Entitic vol] 90.0 fL Normal 80.0-94.0 [facility] ([place]) Comment on above: Performed By: #### G FR, LIP, CBC, ADIFF, CMP, CINDY SUMNER #### [address] [address] Platelet 247 10 3/mcL Normal 130-400 [facility] ([place]) Comment on above: Performed By: #### G FR, LIP, CBC, ADIFF, CMP, CINDY SUMNER #### [address] [address] Platelet mean volume (Bld) [Entitic vol] 7.5 fL Normal 7.4-10.4 [facility] ([place]) Comment on above: Performed By: #### G FR, LIP, CBC, ADIFF, CMP, CINDY SUMNER #### [address] [address] RBC 5.48 10 6/mcL Normal 4.04-6.13 [facility] ([place]) Comment on above: Performed By: #### G FR, LIP, CBC, ADIFF, CMP, CINDY SUMNER #### [address] [address] WBC 10.0 10 3/mcL Normal 4.6-10.8 [facility] ([place]) Comment on above: Performed By: #### G FR, LIP, CBC, ADIFF, CMP, CINDY SUMNER #### [address] [address] CMPon 01-04-2024 ALT [Catalytic activity/Vol] 198 U/L High 16-63 [facility] ([place]) Comment on above: Performed By: #### G FR, LIP, CBC, ADIFF, CMP, CINDY SUMNER #### [address] [address] AST [Catalytic activity/Vol] 63 U/L High 10-40 [facility] ([place]) Comment on above: Performed By: #### G FR, LIP, CBC, ADIFF, CMP, CINDY SUMNER #### [address] [address] Bili Total 0.5 mg/dL Normal 0.2-1.0 [facility] ([place]) Comment on above: Result Comment: Use of this assay is not recommended for patients undergoing treatment with eltrombopag due to the potential for falsely elevated results. Performed By: #### G FR, LIP, CBC, ADIFF, CMP, CINDY SUMNER #### [address] [address] Albumin Level 4.0 G/dL Normal 3.5-5.0 [facility] ([place]) Comment on above: Performed By: #### G FR, LIP, CBC, ADIFF, CMP, CINDY SUMNER #### [address] [address] Albumin/Globulin [Mass ratio] 1.1 {ratio} Normal 1.1-2.5 [facility] ([place]) Comment on above: Performed By: #### G FR, LIP, CBC, ADIFF, CMP, CINDY SUMNER #### [address] [address] ALP [Catalytic activity/Vol] 135 U/L Normal 40-135 [facility] ([place]) Comment on above: Performed By: #### G FR, LIP, CBC, ADIFF, CMP, CINDY SUMNER #### [address] [address] BUN/Creatinine Ratio 14 ratio Normal 7-27 [facility] ([place]) Comment on above: Performed By: #### G FR, LIP, CBC, ADIFF, CMP, CINDY SUMNER #### [address] [address] Calcium [Mass/Vol] 9.8 mg/dL Normal 8.4-10.2 [facility] ([place]) Comment on above: Performed By: #### G FR, LIP, CBC, ADIFF, CMP, CINDY SUMNER #### [address] [address] Chloride [Moles/Vol] 106 mmol/L Normal 98-107 [facility] ([place]) Comment on above: Performed By: #### G FR, LIP, CBC, ADIFF, CMP, CINDY SUMNER #### [address] [address] CO2 [Moles/Vol] 23 mmol/L Normal 22-29 [facility] ([place]) Comment on above: Performed By: #### G FR, LIP, CBC, ADIFF, CMP, CINDY SUMNER #### [address] [address] Creatinine [Mass/Vol] 1.25 mg/dL Normal 0.70-1.30 [facility] ([place]) Comment on above: Performed By: #### G FR, LIP, CBC, ADIFF, CMP, CINDY SUMNER #### [address] [address] Electrolyte Balance 13.0 mEq/L Normal 4.0-15.0 [facility] ([place]) Comment on above: Performed By: #### G FR, LIP, CBC, ADIFF, CMP, CINDY SUMNER #### [address] [address] Globulin 3.7 G/dL Normal [facility] ([place]) Comment on above: Performed By: #### G FR, LIP, CBC, ADIFF, CMP, CINDY SUMNER #### [address] [address] Glucose [Mass/Vol] 128 mg/dL High 70-105 [facility] ([place]) Comment on above: Performed By: #### G FR, LIP, CBC, ADIFF, CMP, CINDY SUMNER #### [address] [address] Potassium [Moles/Vol] 4.1 mmol/L Normal 3.5-5.1 [facility] ([place]) Comment on above: Performed By: #### G FR, LIP, CBC, ADIFF, CMP, BURAK, CINDY #### [address] [address] Sodium [Moles/Vol] 142 mmol/L Normal 136-145 [facility] ([place]) Comment on above: Performed By: #### G FR, LIP, CBC, ADIFF, MARCK, CINDY SUMNER #### [id number] [place], [place] [address] Total Protein 7.7 G/dL Normal 6.4-8.2 [facility] ([place]) Comment on above: Performed By: #### G FR, LIP, CBC, ADIFF, CMP, CINDY SUMNER #### [id number] [place], [place] [address] Urea nitrogen [Mass/Vol] 17 mg/dL Normal 7-18 [facility] ([place]) Comment on above: Performed By: #### G FR, LIP, CBC, ADIFF, CMP, CINDY SUMNER #### [id number] [place], [place] [address] CT ABDOMEN/PELVIS W/O CONTRA STon 01-04-2024 CT [...] 01/04/2024 1:52:07 AM Ordering Provider: JENNIFFER VILLASENOR [facility] ([place]) LABORATORYOrdered By: SYSTEM SYSTEM on 01-04-2024 Albumin [...] 01-04-2024 Lipase Level 66 U/L Normal 16-77 [facility] ([place]) Comment on above: Performed By: #### G FR, LIP, CBC, ADIFF, CMP, ANEU, MDW #### [address] [address] Absolute lymphocyte countOrd ered By: Neetu Espinoza on 10-15-2023 Lymphocytes Auto (Unsp spec) [#/Vol] 2.25 10*3/uL 0.83-4.51 [facility] Automated lymphocyte count a s percentage of total leukocytesOrdered By: Neetu Espinoza on 10-15-2023 Lymphocytes/100 WBC Auto (Unsp spec) 20.1 % 19-41 [facility] Basophil percentageOrdered B y: Neetu Espinoza on 10-15-2023 Basophil percentage 0-5 SEEN /hpf 0-5 [facility] Basophils/100 WBC (Bld) 0.7 % 0-1 [facility] Bilirubin [Mass/Vol] 0.40 mg/dL 0.20-1.00 [facility] Comment on above: For patients on eltr ombopag therapy, use of Dimension [place] TBIL is not recommended. Chloride [Moles/Vol] 107 mmol/L 98-107 [facility] Eosinophils/100 WBC (Bld) 3.7 % 0-5 [facility] Glucose [Mass/Vol] 119 mg/dL 74-106 [facility] Comment on above: Fasting Glucose resu lt from 100 to 125 mg/dL suggests IMPAIRED HOMEOSTASIS per A.D.A. criteria. Hemoglobin (Bld) [Mass/Vol] 16.5 g/dL 13.0-16.5 [facility] Lactate [Moles/Vol] 0.9 mmol/L 0.4-2.0 [facility] Monocytes/100 WBC (Bld) 7.7 % 0-10 [facility] Neutrophils (Bld) [#/Vol] 7.6 10*3/uL 2.0-7.7 [facility] Neutrophils/100 WBC (Bld) 67.6 % 47-70 [facility] Potassium [Moles/Vol] 4.0 mmol/L 3.5-5.1 [facility] Comment on above: Slight Hemolysis, Re sult may be falsely increased. Protein [Mass/Vol] 8.2 g/dL 6.4-8.2 [facility] Sodium [Moles/Vol] 139 mmol/L 136-145 [facility] WBC (Bld) [#/Vol] 11.2 10*3/uL 4.4-11.0 [facility] Bilirubin Test strip Ql (U)O rdered By: Neetu Espinoza on 10-15-2023 Bilirubin Ql (U) Negative Negative [facility] Determination of erythrocyte mean corpuscular volume (MCV)Ordered By: Neetu Espinoza on 10-15-2023 MCV (RBC) [Entitic vol] 87.9 fL 80-94 [facility] Erythrocyte distribution wid th ratioOrdered By: Neetu Espinoza on 10-15-2023 Erythrocyte distribution width (RBC) [Ratio] 12.4 % 11.6-14.6 [facility] Erythrocyte distribution wid th standard deviationOrdered By: Neetu Espinoza on 10-15-2023 Erythrocyte distribution width (RBC) [Entitic vol] 39.7 fL 35.1-43.9 [facility] Hematocrit Auto (Bld) [Volum e fraction]Ordered By: Neetu Espinoza on 10-15-2023 Hematocrit (Bld) [Volume fraction] 48.0 % 40-54 [facility] Immature granulocytes/100 WB C Auto (Bld)Ordered By: Neetu Espinoza on 10-15-2023 Immature granulocytes/100 WBC (Bld) 0.200 % 0.0-0.9 [facility] Comment on above: IG% - Immature Granu locytes (promyelocytes, myelocytes and metamyelocytes) > 1% indicates that a LEFT SHIFT is Present. Ketones Test strip Ql (U)Ord ered By: Neetu Espinoza on 10-15-2023 Ketones Ql (U) 5 mg/dl Negative [facility] Laboratory - Chemistry and C hemistry - challengeOrdered By: Neetu Espinoza on 10-15-2023 Albumin/Globulin [Mass ratio] 1.0 {ratio} 0.9-2.4 [facility] ALP [Catalytic activity/Vol] 118 U/L 45-117 [facility] ALT [Catalytic activity/Vol] 202 U/L 16-61 [facility] CO2 [Moles/Vol] 25.0 mmol/L 21.0-32.0 [facility] Globulin (S) [Mass/Vol] 4.2 g/dL 2.2-4.2 [facility] Lipase [Catalytic activity/Vol] 54 U/L 13-75 [facility] Comment on above: Please note:LIPASE r evised reference range effective 22. New Lipase methodology. Expected to produce lower values than the previous assay method. NEW Reference Range: 13 - 75 U/L Urea nitrogen/Creatinine [Mass ratio] 11.0 mg/mg 10-20 [facility] Laboratory - Hematology and Cell countsOrdered By: Neetu Espinoza on 10-15-2023 MCH (RBC) [Entitic mass] 30.2 pg 27.0-32.0 [facility] MCHC (RBC) [Mass/Vol] 34.4 g/dL 32-36 [facility] Nucleated RBC/100 WBC (Bld) [Ratio] 0 % 0-5 [facility] Platelet mean volume (Bld) [Entitic vol] 9.4 fL 6.2-12.0 [facility] Platelets (Bld) [#/Vol] 276 10*3/uL 150-450 [facility] Mucus LM Ql (Urine sed)Order ed By: Neetu Espinoza on 10-15-2023 Mucus Ql (Urine sed) 0 SEEN /hpf [facility] Nitrite Test strip Ql (U)Ord ered By: Neetu Espinoza on 10-15-2023 Nitrite Ql (U) Negative Negative [facility] No Panel InformationOrdered By: Neetu Espinoza on 10-15-2023 Estimated Creatinine Clearance Calc 96.66 ml/min [facility] Estimated GFR (MDRD) Amer 73 mL/min >60 [facility] Comment on above: GFR Calc Estimated GFR (MDRD) Non-Af Amer 60 mL/min >60 [facility] Comment on above: Non- GFR Calc Urine RBC 0 SEEN /hpf 0-5 [facility] Protein Test strip Ql (U)Ord ered By: Neetu Espinoza on 10-15-2023 Protein Ql (U) 15 mg/dl Negative [facility] RBC Auto (Bld) [#/Vol]Ordere d By: Neetu Espinoza on 10-15-2023 RBC (Bld) [#/Vol] 5.46 10*6/uL 4.6-6.2 [facility] Serum or plasma calcium summer urement (mass/volume)Ordered By: Neetu Espinoza on 10-15-2023 Calcium [Mass/Vol] 9.4 mg/dL 8.5-10.1 [facility] Serum or plasma creatinine m easurement (mass/volume)Ordered By: Neetu Espinoza on 10-15-2023 Creatinine [Mass/Vol] 1.45 mg/dL 0.70-1.30 [facility] Comment on above: The validity of the calculated GFR & GFRAA in patients over 70 years has not been determined. Clinical correlation is essential. Serum or plasma urea nitroge n measurement (mass/volume)Ordered By: Neetu Espinoza on 10-15-2023 Urea nitrogen [Mass/Vol] 16 mg/dL 7-18 [facility] Squamous epithelial cells de tection in urine sediment by light microscopyOrdered By: Neetu Espinoza on 10-15-2023 Epithelial cells.squamous LM Ql (Urine sed) 0 SEEN /hpf 0-5 [facility] Thin prep Papanicolaou smear with manual screeningOrdered By: Neetu Espinoza on 10-15-2023 Thin prep Papanicolaou smear with manual screening 4.0 g/dL 3.2-5.0 [facility] Thin prep Papanicolaou smear with manual screening 76 U/L 15-37 [facility] Comment on above: Slight Hemolysis, Re sult may be falsely increased. Thin prep Papanicolaou smear with manual screening 7 5-15 [facility] Urine blood detectionOrdered By: Remus Olga on 10-15-2023 RBC Ql (U) Negative Negative [facility] Urine clarityOrdered By: Rem us Olga on 10-15-2023 Clarity (U) Clear Clear [facility] Urine color determinationOrd ered By: Remus Espinoza on 10-15-2023 Color (U) Yellow Yellow [facility] Urine glucose detectionOrder ed By: Neetu Espinoza on 10-15-2023 Glucose Ql (U) Normal mg/dl Normal [facility] Urine leukocyte esterase det ection by dipstickOrdered By: Neetu Espinoza on 10-15-2023 Leukocyte esterase Test strip Ql (U) 25 /ul Negative [facility] Urine pHOrdered By: Neetu Beckham gur on 10-15-2023 pH (U) 7.0 [pH] 5.0 - 8.0 [facility] Urine sediment bacteria coun t by microscopy (number/high power field)Ordered By: Neetu Espinoza on 10-15-2023 Bacteria LM.HPF (Urine sed) [#/Area] 1 /[HPF] None Seen [facility] Urine specific gravity measu rementOrdered By: Neetu Espinoza on 10-15-2023 Specific gravity (U) [Rel density] 1.015 1.002-1.03 0 [facility] Urine urobilinogen measureme ntOrdered By: Neetu Espinoza on 10-15-2023 Urobilinogen Ql (U) 1 mg/dl Normal [facility] Vital Signs Date Time Vital Sign Value Performing Clinician Facility 01-18-2025 13:13-0400 Body height 182.[address] Arun Gonzales DO Work Phone: [facility] 01-18-2025 13:13-0400 Body mass index (BMI) [Ratio] 33.2 kg/m2 Dr. Arun Gonzales DO Work Phone: [facility] 01-18-2025 13:13-0400 Body temperature 97.9 [degF] Dr. Arun Gonzales DO Work Phone: [facility] 01-18-2025 13:13-0400 Body weight 111.[address] Arun Gonzales DO Work Phone: [facility] 01-18-2025 13:13-0400 Diastolic blood pressure 86 mm[Hg] Dr. Arun Gonzales DO Work Phone: [facility] 01-18-2025 13:13-0400 Heart rate 106 /min Dr. Arun Gonzales DO Work Phone: [facility] 01-18-2025 13:13-0400 Respiratory rate 16 /min Dr. Arun Gonzales DO Work Phone: [facility] 01-18-2025 13:13-0400 SaO2% (BldA) [Mass fraction] 97 % Dr. Arun Gonzales DO Work Phone: [facility] 01-18-2025 13:13-0400 Systolic blood pressure 134 mm[Hg] Dr. Arun Gonzales DO Work Phone: [facility] 01-10-2025 19:51-0400 Body temperature 98.4 [degF] Dr. Arun Gonzales DO Work Phone: [facility] 01-10-2025 19:51-0400 Diastolic blood pressure 79 mm[Hg] Dr. Arun Gonzales DO Work Phone: [facility] 01-10-2025 19:51-0400 Heart rate 81 /min Dr. Arun Gonzales DO Work Phone: [facility] 01-10-2025 19:51-0400 Respiratory rate 16 /min Dr. Arun Gonzales DO Work Phone: [facility] 01-10-2025 19:51-0400 SaO2% (BldA) [Mass fraction] 100 % Dr. Arun Gonzales DO Work Phone: [facility] 01-10-2025 19:51-0400 Systolic blood pressure 128 mm[Hg] Dr. Arun Gonzales DO Work Phone: [facility] 01-10-2025 14:48-0400 Body height 182.[address] Arun Gonzales DO Work Phone: [facility] 01-10-2025 14:48-0400 Body mass index (BMI) [Ratio] 34.4 kg/m2 Dr. Arun Gonzales DO Work Phone: [facility] 01-10-2025 14:48-0400 Body weight 114.[address] Arun Gonzales DO Work Phone: [facility] 11-24-2024 11:11-0400 Body height 182.[address] Arun Gonzales DO Work Phone: [facility] 11-24-2024 11:11-0400 Body mass index (BMI) [Ratio] 33.7 kg/m2 Dr. Arun Gonzales DO Work Phone: [facility] 11-24-2024 11:11-0400 Body temperature 97.6 [degF] Dr. Arun Gonzales DO Work Phone: [facility] 11-24-2024 11:11-0400 Body weight 112.[address] Arun Gonzales DO Work Phone: [facility] 11-24-2024 11:11-0400 Diastolic blood pressure 80 mm[Hg] Dr. Arun Gonzales DO Work Phone: [facility] 11-24-2024 11:11-0400 Heart rate 102 /min Dr. Arun Gonzales DO Work Phone: [facility] 11-24-2024 11:11-0400 Respiratory rate 16 /min Dr. Arun Gonzales DO Work Phone: [facility] 11-24-2024 11:11-0400 SaO2% (BldA) [Mass fraction] 96 % Dr. Arun Gonzales DO Work Phone: [facility] 11-24-2024 11:11-0400 Systolic blood pressure 120 mm[Hg] Dr. Arun Gonzales DO Work Phone: [facility] 11-03-2024 11:36-0400 Body height 182.[address] Arun Gonzales DO Work Phone: [facility] 11-03-2024 11:36-0400 Body mass index (BMI) [Ratio] 33.3 kg/m2 Dr. Arun Gonzales DO Work Phone: [facility] 11-03-2024 11:36-0400 Body temperature 97.7 [degF] Dr. Arun Gonzales DO Work Phone: [facility] 11-03-2024 11:36-0400 Body weight 111.[address] Arun Gonzales DO Work Phone: [facility] 11-03-2024 11:36-0400 Diastolic blood pressure 100 mm[Hg] Dr. Arun Gonzales DO Work Phone: [facility] 11-03-2024 11:36-0400 Heart rate 106 /min Dr. Arun Gonzales DO Work Phone: [facility] 11-03-2024 11:36-0400 Respiratory rate 18 /min Dr. Arun Gonzales DO Work Phone: [facility] 11-03-2024 11:36-0400 SaO2% (BldA) [Mass fraction] 96 % Dr. Arun Gonzales DO Work Phone: [facility] 11-03-2024 11:36-0400 Systolic blood pressure 150 mm[Hg] Dr. Arun Gonzales DO Work Phone: [facility] 07-23-2024 18:12-0500 Body temperature 97.2 [degF] Dr. Arun Gonzales DO Work Phone: [facility] 07-23-2024 18:12-0500 Diastolic blood pressure 91 mm[Hg] Dr. Arun Gonzales DO Work Phone: [facility] 07-23-2024 18:12-0500 Heart rate 126 /min Dr. Arun Gonzales DO Work Phone: [facility] 07-23-2024 18:12-0500 Respiratory rate 20 /min Dr. Arun Gonzales DO Work Phone: [facility] 07-23-2024 18:12-0500 SaO2% (BldA) [Mass fraction] 98 % Dr. Arun Gonzales DO Work Phone: [facility] 07-23-2024 18:12-0500 Systolic blood pressure 157 mm[Hg] Dr. Arun Gonzales DO Work Phone: [facility] 07-23-2024 16:49-0500 Body mass index (BMI) [Ratio] 32.8 kg/m2 Dr. Arun Gonzales DO Work Phone: [facility] 07-23-2024 16:49-0500 Body weight 109.[address] Arun Gonzales DO Work Phone: [facility] 01-04-2024 14:00-0400 Heart rate 68 /min JENNIFFER VILLASENOR MD [facility] 01-04-2024 14:00-0400 Systolic Blood Pressure Non-Invasive 155 mm[Hg] JENNIFFER VILLASENOR MD [facility] 01-04-2024 03:27-0400 Diastolic Blood Pressure Non-Invasive 91 mm[Hg] JENNIFFER VILLASENOR MD [facility] 01-04-2024 03:27-0400 Heart rate 56 /min JENNIFFER VILLASENOR MD [facility] 01-04-2024 03:27-0400 Reason For Taking VItal Signs JENNIFFER VILLASENOR MD [facility] 01-04-2024 03:27-0400 Respiratory rate 18 /min JENNIFFER VILLASENOR MD [facility] 01-04-2024 03:27-0400 Systolic Blood Pressure Non-Invasive 137 mm[Hg] JENNIFFER VILLASENOR MD [facility] 01-04-2024 00:51-0400 Body temperature 96.98 [degF] JENNIFFER VILLASENOR MD [facility] 01-04-2024 00:51-0400 Diastolic Blood Pressure Non-Invasive 90 mm[Hg] JENNIFFER VILLASENOR MD [facility] 01-04-2024 00:51-0400 Heart rate 70 /min JENNIFFER VILLASENOR MD [facility] 01-04-2024 00:51-0400 Respiratory rate 20 /min JENNIFFER VILLASENOR MD [facility] 01-04-2024 00:51-0400 Systolic Blood Pressure Non-Invasive 135 mm[Hg] JENNIFFER VILLASENOR MD [facility] 10-15-2023 21:58-0400 Body temperature 98 [degF] [facility] 10-15-2023 21:58-0400 Diastolic blood pressure 50 mm[Hg] [facility] 10-15-2023 21:58-0400 Heart rate 69 /min [facility] 10-15-2023 21:58-0400 Respiratory rate 18 /min [facility] 10-15-2023 21:58-0400 SaO2% (BldA) [Mass fraction] 99 % [facility] 10-15-2023 21:58-0400 Systolic blood pressure 119 mm[Hg] [facility] 10-15-2023 18:29-0400 Body height 182.88 cm [facility] 10-15-2023 18:29-0400 Body mass index (BMI) [Ratio] 33.7 kg/m2 [facility] 10-15-2023 18:29-0400 Body weight 112.94 kg [facility] Encounters Encounter Date Encounter Type Care Provider Facility Start: 02-04-2025 ambulatory [facility] Start: 02-02-[address] Arun Gonzales DO Work Phone: -[facility] Start: 02-02-2025 Non-patient / Non-visit Danny HAIDER -[facility] Start: 02-01-2025 Patient encounter procedure Danny HAIDER -Pulmonary Services/Neurology Work Phone: Start: [facility] Start: 01-31-2025 Patient encounter procedure Danny HAIDER -Laboratory Work Phone: Start: 01-31-2025 [facility] Start: 01-18-2025 End: 01-18-2025 Patient encounter procedure Danny HAIDER -[facility] Work Phone: Start: 01-18-2025 End: 01-18-[address] Arun Gonzales DO Work Phone: [facility] Start: 01-10-2025 End: 01-10-2025 Emergency department patient visit Dr. Arun Gonzales DO Work Phone: -Emergency Department Work Phone: Start: 11-24-2024 End: 11-24-[address] Arun Gonzales DO Work Phone: [facility] Work Phone: Start: 11-24-2024 End: 11-24-2024 Patient encounter procedure Danny HAIDER -Sleep Lab Work Phone: Start: 11-24-2024 End: 11-24-2024 Patient encounter procedure Danny HAIDER -[facility] Work Phone: Start: 11-24-2024 End: 11-24-[address] Arun Gonzales DO Work Phone: [facility] Work Phone: Start: 11-24-2024 End: 11-24-2024 ambulatory Danny Walter Facility:[facility] Start: 11-10-2024 End: 11-10-2024 Patient encounter procedure Hina HAIDER -[facility] Work Phone: Start: 11-10-2024 End: 11-10-[address] Arun Gonzales DO Work Phone: [facility] Work Phone: Start: 11-10-2024 End: 11-10-2024 ambulatory Hina Sampson Facility:[facility] Start: 11-03-2024 End: 11-03-2024 Patient encounter procedure Danny HAIDER -[facility] Work Phone: Start: 11-03-2024 End: 11-03-2024 ambulatory Arun Gonzales Facility:[facility] Start: 08-04-2024 End: 08-04-2024 Patient encounter procedure Hina HAIDER -[facility] Work Phone: Start: 08-04-2024 End: 08-04-2024 ambulatory Arun Gonzales Facility:[facility] Start: 08-04-2024 End: 08-04-2024 ambulatory Hina Sampson Facility:[facility] Start: 07-23-2024 End: 07-23-2024 Emergency department patient visit Dr. Gm Maddox DO -Emergency Department Work Phone: Start: 07-01-2024 End: 07-01-2024 ambulatory Hina Sampson Facility:[facility] Start: 06-09-2024 End: 06-09-2024 ambulatory Arun Gonzales Facility:[facility] Start: 06-09-2024 End: 06-09-2024 ambulatory Arun Gonzales Facility:[facility] Start: 06-04-2024 End: 06-04-2024 ambulatory Hina Sampson Facility:[facility] Start: 05-28-2024 ambulatory Hina Sampson Facili ty:[facility] Start: 05-28-2024 End: 05-28-2024 ambulatory Hina Sampson Facility:[facility] Start: 04-30-2024 End: 04-30-2024 ambulatory Hina Katov Facility:[facility] Start: 04-30-2024 End: 04-30-2024 ambulatory Hina Sampson Facility:[facility] Start: 04-29-2024 End: 04-29-2024 ambulatory Miryam Ohara Facility:[facility] Start: 04-14-2024 End: 04-14-2024 ambulatory Hina Adrián Facility:[facility] Start: 03-24-2024 End: 03-24-2024 ambulatory No Primary Care Physician Facility:[facility] Start: 03-09-2024 ambulatory Rodrigo García Facility :[facility] Start: 03-09-2024 End: 03-09-2024 ambulatory Rodrigo García Facility:[facility] Start: 03-02-2024 End: 03-02-2024 ambulatory Sari HAIDER Facility:[facility] Start: 02-18-2024 ambulatory Rodrigo García Facility :[facility] Start: 02-17-2024 End: 02-18-2024 ambulatory Sumeet Bearden Facility:[facility] Start: 02-15-2024 End: 02-15-2024 Emergency department patient visit Arun Gonzales Facility:[facility] Start: 02-12-2024 End: 02-12-2024 ambulatory Hina Adrián Facility:[facility] Start: 02-03-2024 ambulatory Hina Sampson Facili ty:[facility] Start: 02-03-2024 End: 02-03-2024 ambulatory Hina Adrián Facility:[facility] Start: 01-04-2024 End: 01-04-2024 Emergency department patient visit JENNIFFER VILLASENOR MD [facility] Start: 10-15-2023 End: 10-15-2023 Emergency department patient visit [facility]-Emergency Department Work Phone: Procedures Date Procedure Procedure Detail Performing Clinician Start: 01-31-[address] Arun Gonzales DO Work Phone: Comment on above: ACTH reference interval for samples dixie ected between 7 and10 AM.Performed at: [id number] [id number] Director: Popeye Joseph PhD, Phone: [phone] Start: 01-31-[address] Arun Gonzales DO Work Phone: Start: 01-10-2025 Urnls dip stick/tablet reagent auto microscopy Dr. Arun Gonzales DO Work Phone: Start: 01-10-2025 X-ray of chest, PA and lateral views Dr. Arun Gonzales DO Work Phone: Start: 01-10-2025 D-dimer assay, quantitative Dr. Arun Gonzales DO Work Phone: Comment on above: NORMAL D-Dimer level (<0.50) indicates n o DVT or PE. Start: 01-10-[address] Arun Gonzales DO Work Phone: Start: 08-04-[address] Arun Gonzales DO Work Phone: Comment on above: Performed at: [facility] [id number] [place], [place] [id number] Director: Popeye Joseph PhD, Phone: [phone] Start: 08-04-[address] Arun Gonzales DO Work Phone: Comment on above: [facility] atypical pANCA pattern has been obse rved in asignificant percentage of patients with ulcerative colitis,primary sclerosing cholangitis and autoimmune hepatitis. Start: 08-04-2024 Antibody to centromere measurement Dr. Arun Gonzales DO Work Phone: Comment on above: Test not performed Start: 08-04-2024 Antibody to extractable nuclear antigen measurement Dr. Arun Gonzales DO [...] performed Start: 08-04-[address] Arun monte DO Work Phone: Comment on above: Test not performed Start: 08-04-2024 PROFESSOR OF BIBLICAL STUDIES antibody measurement Dr. Arun monte DO Work Phone: Comment on above: Test not performed Start: 07-23-[address] Arun Gonzales DO Work Phone: Start: 07-23-2024 Measurement of renal function Dr. Arun Gonzales DO Work Phone: Comment on above: GFR Calc Start: 10-15-2023 Computed tomography of abdomen and pelvis with intravenous contrast Start: 10-15-2023 US scan of gallbladder History of cholecystectomy S/P l aparoscopic cholecystectomy Dr. Arun Gonzales DO Work Phone: Comment on above: 02/17/24 Plan of Treatment Date Care Activity Detail Author Start: 01-31-2025 Procedure [facility] Start: 01-10-2025 [facility] Start: 01-10-2025 [facility] Start: 11-24-2024 Polysomnography [facility] Start: 08-04-2024 Patient referral [facility] Work Phone: Start: 07-23-2024 [facility] Start: 10-15-2023 [facility] metabo lic 1999 panel - Serum or Plasma [facility] metabo lic 1999 panel - Serum or Plasma [facility] Cortisol [Mass/volum e] in Serum or Plasma [facility] Patient Education [facility] Work Phone: Patient referral [facility] Work Phone: Thyroid stimulating hormone measurement [facility] Immunizations Immunization Date Immunization Notes Care Provider [facility]2019 influenza, injectabl e, quadrivalent, preservative free Dr. Arun Gonzales DO Work Phone: [facility] 08-20-2019 pneumococcal polysaccharide vaccine, [address] Arun Gonzales DO Work Phone: [facility] Payers Date Payer Category Payer Self-pay [id number] 2024 Unknown [id number] 2013 Unknown [employer] [id number] 1992 Unknown [id number] 2.16.8 40.1.290373.3.579.2.627 Unknown OB COMP MANAGEMENT [id number] Unknown [id number] 2.16.8 40.1.327876.3.579.2.462 Unknown [id number] 2.16.8 40.1.442716.3.579.2.462 Unknown [id number] 2.16.8 40.1.606579.3.579.2.462 Unknown [id number] 2.16.8 40.1.245082.3.579.2.462 Unknown [id number] 2.16.8 40.1.688109.3.579.2.462 Unknown [id number] 2.16.8 40.1.988499.3.579.2.462 Unknown [id number] 2.16.8 40.1.257622.3.579.2.462 Unknown [id number] 2.16.8 40.1.744051.3.579.2.462 Unknown [id number] 2.16.8 40.1.583690.3.579.2.462 Unknown [id number] 2.16.8 40.1.984395.3.579.2.462 Unknown [id number] 2.16.8 40.1.430468.3.579.2.462 Unknown [id number] 2.16.8 40.1.926590.3.579.2.462 Unknown [id number] 2.16.8 40.1.790758.3.579.2.462 Unknown [id number] 2.16.8 40.1.280519.3.579.2.462 Unknown [id number] 2.16.8 40.1.845389.3.579.2.462 Unknown [id number] 2.16.8 40.1.437462.3.579.2.462 Unknown [id number] 2.16.8 40.1.438202.3.579.2.462 Unknown [id number] 2.16.8 40.1.428396.3.579.2.462 Unknown [id number] 2.16.8 40.1.414706.3.579.2.462 Unknown [id number] 2.16.8 40.1.055837.3.579.2.462 Unknown [id number] 2.16.8 40.1.681049.3.579.2.462 Unknown [id number] 2.16.8 40.1.758493.3.579.2.462 Unknown [id number] 2.16.8 40.1.286196.3.579.2.462 Unknown [id number] 2.16.8 40.1.055670.3.579.2.462 Unknown [id number] 2.16.8 40.1.692605.3.579.2.462 Unknown [id number] 2.16.8 40.1.901995.3.579.2.462 Unknown [id number] 2.16.8 40.1.962847.3.579.2.462 Unknown [id number] 2.16.8 40.1.026639.3.579.2.462 Unknown [id number] 2.16.8 40.1.494451.3.579.2.462 Unknown [id number] 2.16.8 40.1.105349.3.579.2.462 Unknown [id number] 2.16.8 40.1.984570.3.579.2.462 Unknown [id number] 2.16.8 40.1.531129.3.579.2.462 Unknown [id number] 2.16.8 40.1.232723.3.579.2.462 Unknown [id number] 2.16.8 40.1.047190.3.579.2.462 Unknown [id number] 2.16.8 40.1.103603.3.579.2.462 Social History Date Type Detail Facility Start: 10-15-2023 Tobacco smoking stat [facility] Unknown if ever smoked [facility] Start: 1990 Sex Assigned At Male [facility] Tobacco smoking status No Smokin g Status Entered [facility] Start: 07-23-2024 End: 01-10-2025 Tobacco smoking status MNIS Current Light tobacco smoker [facility] Start: 02-03-2024 Tobacco Use Tobacco Use [facility] Medical Equipment Procedure Code Equipment Code Equipment Original Text Equipment Identifier Dates Total cholecystectomy with exploration of common bile duct CLIP,HEMOLOCK MED WECK FDA Start: 02-17-2024 Total cholecystectomy with exploration of common bile duct Ligation clip, synthetic polymer, non-bioabsorbable [id number] FDA Start: 02-17-2024 Total cholecystectomy with exploration of common bile duct CLIP,HEMOLOCK MED WECK FDA Start: 02-17-2024 Total cholecystectomy with exploration of common bile duct CLIP,HEMOLOCK MED WECK FDA Start: 02-17-2024 Total cholecystectomy with exploration of common bile duct CLIP,HEMOLOCK MED WECK FDA Start: 02-17-2024 Total cholecystectomy with exploration of common bile duct CLIP,ESDRAS [employer] GRAEME FDA Start: 02-17-2024 Total cholecystectomy with exploration of common bile duct CLIP,ESDRAS BEDO[employer] FDA Start: 02-17-2024 Total cholecystectomy with exploration of common bile duct CLIP,ESDRAS [employer] GRAEME FDA Start: 02-17-2024 Functional Status Date Assessment Result Facility 01-04-2024 Functional Status [facility] 01-04-2024 Functional Status Standard Safet y ID band on, Allergy Band on, Call device within reach, Bed in low position, Wheels locked, Upper/Half-Length side-rails up, Safety level maintained [facility] Mental Status Date Assessment Result Facility 01-10-2025 Cognitive function Awake;Alert;A ppropriate;Follo ws Commands [facility] Work Phone: 01-04-2024 Mental Status Orientation Oriented x 4 [facility] 01-04-2024 Mental Status [facility] Clinical Notes 01-04-2024 to 01-10-2025 Note Date & Type Note Facility 01-10-2025 Radiology Diagnostic study note [facility] Imaging Services [address] [place] [address] Chest PA and Lateral MR#: [id number] Acct: [id number] Name: FRITZ MORSE Rep #: [id number] : 1990 M 34 From: Manuel Peña MD PCP: Dr. Arun Gonzales DO Status: RE G ER Study:Chest PA and Lateral Date of Exam: 01/10/25 Exam# [id number] Ordering Dr: Luis Angel Win DO PROCEDURE: CHEST PA AND LATERAL 01/10/2025 REASON FOR EXAM: PALPITATIONS TECHNIQUE: CHEST PA AND LATERAL COMPARISON: None. FINDINGS: Lungs/Pleura: Clear. Heart/Mediastinum: Normal in size. Bones/Soft tissues: Mild degenerative changes of the spine. RAD/Chest PA and Lateral IMPRESSION: No acute cardiopulmonary disease. Reading Location: [facility] CC: Dr. Arnu Gonzales, DO; Dr. Luis Angel Win, DO ~ Encoding Clerk: Signed [facility] 01-10-2025 Hospital Discharg e instructions Additional Instructions Your blood sugar was slightly elevated on lab results. Continue to monitor your blood sugars. Try to eat a low-carb, low sugar diet. Follow-up with your primary care physician in 5 to 7 days for further evaluation. [facility] Work Phone: 11-03-2024 Evaluation note Diagnosis Onset Date Resolution Hypersomnia acute November 03, 2024 11:24am Hypertension chronic November 03 11:24am Elevated LFTs acute November 10, 2 025 10:34am Gastritis acute November 10, 2024 10:34am Hypertension chronic November 24 10:54am [facility] Work Phone: 1(728) 979-440305-07-2025 Evaluation note* Diagnosis Onset Date Resolution Status Admit Date Hypersomnia acute November 03, 2024 11:24am Hypertension chronic November 03 11:24am Elevated LFTs acute November 10, 2 025 10:34am Gastritis acute November 10, 2024 10:34am Hypertension chronic November 24 10:54am Congenital adrenal hyperplasia acute January 18, 2025 12:51pm Elevated glucose acute December 12:51pm Heart palpitations acute December 292024 12:51pm Hypertension chronic January 18, 2 025 12:51pm [facility] Work Phone: 1(483) 859-645002-05-2025 Evaluation note* Diagnosis Onset Date Resolution Status Admit Date Bloody stool acute July 9:54am Elevated LFTs acute July h2024 9:54am Rash acute August 04, 2024 9:54am Hypersomnia acute November 03, 2024 11:24am Hypertension chronic November 03 11:24am Elevated LFTs acute November 10, 2 025 10:34am [employer] [facility] Work Phone: 1(945) 732-355202-05-2025 Evaluation note* Diagnosis Onset Date Resolution Status Admit Date Bloody stool acute July 9:54am Elevated LFTs acute July h2024 9:54am Rash acute August 04, 2024 9:54am Hypersomnia acute November 03, 2024 11:24am Hypertension chronic November 03 11:24am Elevated LFTs acute November 10, 2 025 10:34am Gastritis acute November 10, 2024 10:34am Hypertension chronic November 24 10:54am [facility] Work Phone: 1(263) 470-703202-05-2025 Evaluation note* Diagnosis Onset Date Resolution Status Admit Date Bloody stool acute July 9:54am Elevated LFTs acute July 9:54am Rash acute August 04, 2024 9:54am Hypersomnia acute November 03, 2024 11:24am Hypertension chronic November 03 11:24am Elevated LFTs acute November 10 025 10:34am Gastritis acute November 10, 2024 10:34am [facility] Work Phone: 1(176) 128-534809-10-2024 [facility]08-20-2024 [facility]08-06-2024 [facility] 01-04-2024 Hospital Discharge instructions Patient Education 01/04/2024 [...] foods again, start with small amounts of xwzf-kp-ahmmox, low- fat foods. These include apple sauce, [...] increase stomach acid. Don't use aspirin or vyyo-zdk-pkasjia pain and fever medicines, if possible. This includes nonsteroidal anti-inflammatory drugs (NSAIDs). Lose excess weight. Finish eating at least 2 hours before you go to bed or lie down. Raise the head of your bed. [id number] [employer]. [address] [place] [address]. All rights reserved. This information is not intended as a substitute for professional medical care. Always follow yourhealthcare professional's instructions. Follow Up Care 01/04/2024 00:38:49 With:Follow up with primary care provider Address:Unknown When:2-4 days With:JANINE DEL VALLE MD Address: [address] [place] [address] [place] [address]- When:2-4 days With:POPEYE HERRERA MD Address: [address] [place] [address] [address] [place] [address]- [phone] When:2-4 days [facility] 07-07-2024 Note Discharge Instructions Thank you for allowing [facility] to assist you with your healthcare needs. [...] JANINE DEL VALLE MD When:Within 2-4 days Where:[address] [place] [address] [place] [address]- Follow Up with POPEYE HERRERA MD When:Within 2-4 days [facility] [facility] [address] [place] [phone] Allergies NKA Medications Please ask your primary [...] foods again, start with small amounts of fftc-mf-zfgwdm, low- fat foods. These include apple sauce, [...] increase stomach acid. Don't use aspirin or kktd-jui-gxqfmfi pain and fever medicines, if possible. This includes nonsteroidal anti-inflammatory drugs (NSAIDs). Lose excess weight. Finish eating at least 2 hours before you go to bed or lie down. Raise the head of your bed. [phone] [employer]. [address] [place] [address]. All rights reserved. This information is not intended as a substitute for professional medical care. Always follow yourhealthcare professional's instructions. Additional Information VACCINATE! IT SAVES LIVES! Members of the community who have not yet received the COVID-19 vaccine and would like to receive it can visit one of [facility] vaccine clinics. There are many vaccine clinic locations within the [facility]. For locations and available times, please visit [email or web address] It is important to note that some COVID mobile vaccine clinics are held outdoors and may be canceled in rainy or stormy conditions. To learn more about pediatric vaccinations (ages 5-11), we invite you to visit the [facility] webpage. [email or web address]/[email or web address]-[email or web address]-Vwiyvxhres-[email or web address]-[email or web address] stions.htmlTo learn more about the COVID-19 vaccine, we invite you to visit the CDC website for a list of frequently asked questions. https://www.cdc.gov/coronavirus/2019-ncov/vaccines/faq.html [facility] Patient Portal Access Instructions: Stay connected with your healthcare team and access your personal medical information anytime with the [facility] Patient Portal. If you would like a full copy of your medical records please contact the [facility] Medical Records Department Friday through Friday between 8a.m. and 4:30p.m. Please follow the directions below to access the portal: 1.Access the email account you provided upon registration to the [facility].2.Look for an invitation email from [facility].3.Open the email and access the invitation link: Accept Invitation to [facility]4.Fill in the required ladd to create your account. Sign into www.[email or web address] with your username and password that you [...] you will allow to register on the [facility] Patient Portal for access to your information. You can also access the [facility] Patient Portal on the [employer] munira. Simply click on Health Records under [employer] and then click on the [employer] logo. HOW TO SAFELY DISPOSE OF PRESCRIPTION [...] Call your local pharmacy or go to http://bit.2theloo/3Y9Ef6n to find one close to you.3.Make use of household items: Use cat litter or old coffee grounds to dispose medications if other options arenot available. Mix your drugs with these household products, seal them in an airtight container andthrow it into the garbage. Call [facility]: [phone] to be sure your drugs can be [...] aware that I should contact my doctor. 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 Signature: Date/Time: Relationship to Patient: Witness Name/Signature: Date/Time: [facility] Boogiebertha [id number] Note ORIGINAL EXAMINATION: CT OF THE ABDOMEN [...] Date: 01/04/2024 1:52:07 AM Ordering Provider: [facility] No data available for this section [facility] Evaluation noteNo assessment information available [facility] Work Phone: Hospital Discharge instructionsAmbulatory Orders* Endocrinology Location: None Selected [facility] Work Phone: Reason for referral (narrative)No reason for referral [facility] Work Phone: Chief Complaint and Reason for Visit Chief Complaint ABD PAIN Chief Complaint Admit Date GI BLEED July 23, 2024 4 :48pm 3 M FU August 04, 2024 9 :54am INT LABS August 04, 2024 1 0:45am HR and BP high portal request November 03 11:24am 3 M FU November 10, 2024 [...] and BP high portal request November 03 11:24am 3 M FU November 10, 2024 [...] and BP high portal request November 03, 2 025 11:24am 3 M FU November [...] m Palpitations January 10, 2025 2:48 pm [facility] f/u January 18, 2025 12:5 1pm Chief Complaint Admit Date HR and BP high portal request November 03, 2 025 11:24am 3 M FU November 10, 2024 10:34 am 2 week f/u November 24, 2024 10:54 am fatigue and HTN November 24, 2024 7:53p m Palpitations January 10, 2025 2:48 pm [facility] f/u January 18, 2025 12:5 1pm EORDERS January 31, 2025 8:3 9am palpitations February 01, 2025 1:2 7pm Referral Order February 02, 2025 12: 12pm Reason for Visit Admit Date Hypersomnia November 03, 2024 11:24a m Hypertension November 03, 2024 11:24a m Elevated LFTs November 10, 2024 10:34 am Gastritis November 10, 2024 10:34 am Hypertension November 24, 2024 10:54 am Congenital adrenal hyperplasia December 12:51pm Elevated glucose January 18, 2025 12:5 1pm Heart palpitations January 18, 2025 12:5 1pm Hypertension January 18, 2025 12:5 1pm Advance Directives Advance Directive Response Recorded Date/ Time Living Will No October 15, 2023 8:08pm Power of Word Processor No October 14 8:08pm Advance Directive Response Recorded Date/ Time Living Will No March 04 11:14am Do you have a Healthcare Power of Word Processor? No March 04, 2024 11:14am Living Will No July 23 6:34pm Do you have a Healthcare Power of Word Processor? No July 23, 2024 6:34pm Advance Directive Response Recorded Date/ Time Living Will No March 04 11:14am Do you have a Healthcare Power of Word Processor? No March 04, 2024 11:14am Advance Directive Response Recorded Date/ Time Do you have a Healthcare Power of Word Processor? No January 10, 2025 3:49pm Summary Purpose [...] Team Status: Inactive Member Role Status Dates THANG العراقي Attending Provider Active Start: August 04, 2024 End: August 04, 2024 Dr. Arun Gonzales , Primary Care Provider Active Start: August 04, 2024 End: August 04, 2024 Dr. Arun Gonzales , Referring Provider Active Start: August 04, 2024 End: August 04, 2024 Team Status: Inactive Member Role Status Dates Dr. Arun Gonzales DO Primary Care Provider Active Start: August 04, 2024 End: August 04, 2024 TAHNG العراقي Attending Provider Active Start: August 04, 2024 End: August 04, 2024 THANG العراقي Referring Provider Active Start: August 04, 2024 End: August 04, 2024 Team Status: Inactive Member Role Status Dates Dr. Arun Gonzales , Primary Care Provider Active Start: November 03, 2024 End: November 03, 2024 Dr. Arun Gonzales , Referring Provider Active Start: November 03, 2024 End: November 03, 2024 THANG Zaman Attending Provider Active St art: November 03, 2024 End: November 03, 2024 Team Status: Inactive Member Role Status Dates Dr. Arun Gonzales DO Primary Care Provider Active Start: November 10, 2024 End: November 10, 2024 Dr. Arun Gonzales , Referring Provider Active Start: November 10, 2024 End: November 10, 2024 THANG العراقي Attending Provider Active Start: November 10, 2024 End: November 10, 2024 Team Status: Inactive Member Role Status Dates Dr. Arun Gonzales , Primary Care Provider Active Start: November 10, 2024 End: November 10, 2024 THANG العراقي Attending Provider Active Start: November 10, 2024 End: November 10, 2024 THANG العراقي Referring Provider Active Start: November 10, 2024 End: November 10, 2024 Team Status: Inactive Member Role Status Dates THANG Zaman Attending Provider Active St art: November [...] November 24, 2024 End: November 24, 2024 THANG Zaman Attending Provider Active St art: November 24, 2024 End: November 24, 2024 THANG Zaman Referring Provider Active St art: November 24, 2024 End: November 24, 2024 Team Status: Active Member Role/Relationship Status Dates Dr. Arun Gonzales , Primary Care Provider Active Team Status: Inactive Member Role/Relationship Status Dates Dr. Arun Gonzales , DO Primary Care Provider Active Start: November 03, 2024 End: November 03, 2024 Dr. Arun Gonzales , DO Referring Provider Active Start: November 03, 2024 End: November 03, 2024 THANG Zaman Attending Provider Active St art: November 03, 2024 End: November 03, 2024 Team Status: Inactive Member Role/Relationship Status Dates Dr. Arun Gonzales , Primary Care Provider Active Start: November 10, 2024 End: November 10, 2024 Dr. Arun Gonzales , Referring Provider Active Start: November 10, 2024 End: November 10, 2024 THANG العراقي Attending Provider Active Start: November 10, 2024 End: November 10, 2024 Team Status: Inactive Member Role/Relationship Status Dates Dr. Arun Gonzales , Primary Care Provider Active Start: November 10, 2024 End: November 10, 2024 THANG العراقي Attending Provider Active Start: November 10, 2024 End: November 10, 2024 THANG العراقي Referring Provider Active Start: November 10, 2024 End: November 10, 2024 Team Status: Inactive Member Role/Relationship Status Dates Danny HAIDER PA Attending Provider Active St art: November 24, 2024 End: November 24, 2024 Dr. Arun Gonzales , DO Primary Care Provider Active Start: November 24, 2024 End: November 24, 2024 Dr. Arun Gonzales , DO Referring Provider Active Start: November 24, 2024 End: November 24, 2024 Team Status: Inactive Member Role/Relationship Status Dates Dr. Arun Gonzales , Primary Care Provider Active Start: November 24, 2024 End: November 24, 2024 Danny Wayt PA, PA Attending Provider Active St art: November 24, 2024 End: November 24, 2024 Danny Walter PA, PA Referring Provider Active St art: November [...] Inactive Member Role/Relationship Status Dates Dr. Arun Gonazles , Primary Care Provider Active Start: January 18, 2025 End: January 18, 2025 Dr. Arun Gonzales , Referring Provider Active Start: January 18, 2025 End: January 18, 2025 Danny HAIDER, PA Attending Provider Active St art: January 18, 2025 End: January 18, 2025 Team Status: Active Member Role/Relationship Status Dates Dr. Arun Gonzales DO Primary Care Provider Active Start: January 31, 2025 Danny Walter PA, PA Attending Provider Active St art: January 31, 2025 Danny HAIDER, PA Referring Provider Active St art: January 31, 2025 Team Status: Active Member Role/Relationship Status Dates Dr. Arun Gonzales DO Primary Care Provider Active Start: February 01, 2025 Dnany Walter PA, PA Attending Provider Active St art: February 01, 2025 Danny Walter PA, PA Referring Provider Active St art: February 01, 2025 Team Status: Active Member Role/Relationship Status Dates Dr. Arun Gonzales DO Primary Care Provider Active Start: February 02, 2025 Danny Walter PA, PA Attending Provider Active St art: February 02, 2025 Goals (unrecognized section and content) Goals [...] section and content) DATE CREATED AUTHOR 01/17/2024 [facility] ([place]) DATE CREATED AUTHOR AUTHOR'S ORGANIZ ATION 02/01/2025 [facility] FOR RECORDS PERTAINING TO PATIENTS WHO [...] BE BASED ON THE PRIMARY CLINICAL RECORDS. [facility]. provides no warranty or guarantee of the accuracy or completeness of information in this document.
--- OUTSIDE RECORDS SUMMARY | 2025-02-04 06:57 | XMS RPT_ITS | CCD ---
Author Organization [facility] CliniSyct Care Team Providers Care Instrument Lens Generator Name Role Phone PHYSICIAN, NOT RECORDED Primary Care Physician U monse VILLASENOR MD, JENNIFFER Hanley Attending Unavail able PHYSICIAN, NOT RECORDED Primary Care Unavaila ble Christian HUNTER, Dr. Arun Bunch Primary Care Provider [phone] Dr. Gm Maddox DO Attending Provider Dr. Gm Maddox DO Emergency Provider Hina Webb Attending Provider Dr. Arun Gonzales DO Referring Provider Hina Webb Referring Provider Danny Dumas Attending Provider Dr. Arun Gonzales DO Primary Care Provider Danny Dumas Referring Provider Dr. Arun Gonzales DO Primary Care Provider [phone] Dr. Arun Gonzales DO Referring Provider Hina [...] hour away from food or other meds. [place] (Nk) (1 source) Start: 07-14-2019 [place] ([place]k) Active July 14, 2019 1:00am pantoprazole [...] n 02-01-2025 ACTH 40.2 pg/mL Normal 7.2-63.3 [facility] Comment on above: Order Comment: N Result Comment: ACTH reference interval for samples collected between 7 and10 AM.Performed at: [facility] [id number] Director: Popeye Joseph PhD, Phone: [phone] Performed By: #### L 501.9520, L3300.1000, L509.1000 ####[facility] [address] [place], [place], [id number] PTHINon 01-31-2025 PTH 33 pg/mL Normal 11-61 [facility] Comment on above: Performed By: #### L 501.9520, L3300.1000, L509.1000 ####[facility] [address] [place], [place], [id number] Serum or plasma thyroperoxid ase antibody assay (units/volume)Ordered By: Danny Walter on 01-31-2025 TPO Ab Qn 279 [IU]/mL High 0-34 [facility] T4 freeOrdered By: Danny villafana on 01-31-2025 Free T4 [Mass/Vol] 1.20 ng/dL 0.76-1.46 [facility] TSH DL <= 0.005 mIU/L QnOrde red By: Danny Walter on 01-31-2025 TSH Qn 6.860 uIU/mL High 0.300-4.20 0 [facility] Thyroid Stim Hormone (TSH)on 01-31-2025 TSH 6.860 uIU/mL High 0.300-4.20 0 [facility] Comment on above: Performed By: #### L 501.5448, L3300.1000, L509.1000 ####[facility] [address] [place], [address] ThyroxineOrdered By: Danny Walter on 01-31-2025 T4 [Mass/Vol] 8.8 ug/dL 4.5-12.1 [facility] Internal Medicine Office Vis iton 01-18-2025 Internal Medicine Office Visit Normal [facility] Laboratory - Hematology and Cell countsOrdered By: Danny Walter on 01-18-2025 HbA1c (Bld) [Mass fraction] 5.9 % 4.2-6.3 [facility] 12 Lead EKGon 01-10-2025 12 Lead EKG Normal [facility] Absolute lymphocyte countOrd ered By: Luis Angel Win on 01-10-2025 Lymphocytes Auto (Unsp spec) [#/Vol] 1.24 10*3/uL 0.83-4.51 [facility] Absolute neutrophil countOrd ered By: Luis Angel Win on 01-10-2025 Neutrophils (Bld) [#/Vol] 4.7 10*3/uL 2.0-7.7 [facility] Amorphous sediment detection in urine sediment by light microscopyOrdered By: Luis Angel Win on 01-10-2025 Amorphous sediment LM Ql (Urine sed) 1+ [facility] Anion gap in Serum or Plasma Ordered By: Luis Angel Win on 01-10-2025 Anion gap [Moles/Vol] 16 mmol/L High 5-15 [facility] Automated lymphocyte count a s percentage of total leukocytesOrdered By: Luis Angel Win on 01-10-2025 Lymphocytes/100 WBC Auto (Unsp spec) 19.0 % 19-41 [facility] BUN/creatinine ratioOrdered By: Luis Angel Win on 01-10-2025 Urea nitrogen/Creatinine [Mass ratio] 9.4 mg/mg Low 10-20 [facility] Basic Metabolic Profile (BMP )on 01-10-2025 BUN/CRE 9.4 RATIO Low 10- [facility] Comment on above: Performed By: #### L 300.8000, L100.0100, L500.2500 ####[facility] [address] [place], [address] Calcium [Mass/Vol] 10.0 mg/dL Normal 7.6-11.0 [facility] Comment on above: Performed By: #### L 300.8000, L100.0100, L500.2500 ####[facility] [address] [place], [address] Chloride [Moles/Vol] 102 mmol/L Normal 98-108 [facility] Comment on above: Performed By: #### L 300.8000, L100.0100, L500.2500 ####[facility] [address] [place], [address] CO2 [Moles/Vol] 18.2 mmol/L Low 21.0-32.0 [facility] Comment on above: Performed By: #### L 300.8000, L100.0100, L500.2500 ####[facility] [address] [place], [address] Creatinine [Mass/Vol] 1.21 mg/dL High 0.70-1.20 [facility] Comment on above: Performed By: #### L 300.8000, L100.0100, L500.2500 ####[facility] [address] [place], [address] ECRCL 114.74 ml/min Normal 50-250 [facility] Comment on above: Performed By: #### L 300.8000, L100.0100, L500.2500 ####[facility] [address] [place], [address] GAP 16 High 5-15 [facility] Comment on above: Performed By: #### L 300.8000, L100.0100, L500.2500 ####[facility] [address] [place], [address] GFR/1.73 sq M.predicted among non-blacks MDRD (S/P/Bld) [Vol rate/Area] 82 mL/min/{1.73_m2} Normal >60 [facility] Comment on above: Result Comment: mL/m in/1.73m2 CKD-EPI Creatinine Equation (2020) Performed By: #### L 300.8000, L100.0100, L500.2500 ####[facility] [address] [place], [address] Glucose [Mass/Vol] 202 mg/dL High 70-99 [facility] Comment on above: Performed By: #### L 300.8000, L100.0100, L500.2500 ####[facility] [address] [place], [address] Potassium [Moles/Vol] 4.1 mmol/L Normal 3.3-5.1 [facility] Comment on above: Result Comment: Hemo lysis present, Results??could be affected.?? Performed By: #### L 300.8000, L100.0100, L500.2500 ####[facility] [address] [place], [address] Sodium [Moles/Vol] 137 mmol/L Normal 133-145 [facility] Comment on above: Performed By: #### L 300.8000, L100.0100, L500.2500 ####[facility] [address] [place], [address] Urea nitrogen [Mass/Vol] 11 mg/dL Normal 4-19 [facility] Comment on above: Performed By: #### L 300.8000, L100.0100, L500.2500 ####[facility] [address] [place], [address] Basophil percentageOrdered B y: Luis Angel Win on 01-10-2025 Basophils/100 WBC (Bld) 0.5 % 0-1 [facility] Bilirubin Test strip Ql (U)O rdered By: Luis Angel Win on 01-10-2025 Bilirubin Ql (U) Negative Negative [facility] CBC W/Diff, Automatedon 12-28 Absolute Lymph 1.24 X10 3/uL Normal 0.83-4.51 [facility] Comment on above: Performed By: #### L 300.8000, L100.0100, L500.2500 ####[facility] [address] [place], [address] Absolute Neut 4.7 X10 3/uL Normal 2.0-7.7 [facility] Comment on above: Performed By: #### L 300.8000, L100.0100, L500.2500 ####[facility] [address] [place], [address] Basophils/100 WBC (Bld) 0.5 % Normal 0-1 [facility] Comment on above: Performed By: #### L 300.8000, L100.0100, L500.2500 ####[facility] [address] [place], [address] Eosinophils/100 WBC (Bld) 3.1 % Normal 0-5 [facility] Comment on above: Performed By: #### L 300.8000, L100.0100, L500.2500 ####[facility] [address] [place], [address] Erythrocyte distribution width (RBC) [Ratio] 11.9 % Normal 11.6-14.6 [facility] Comment on above: Performed By: #### L 300.8000, L100.0100, L500.2500 ####[facility] [address] [place], [address] Hematocrit (Bld) [Volume fraction] 45.4 % Normal 40-54 [facility] Comment on above: Performed By: #### L 300.8000, L100.0100, L500.2500 ####[facility] [address] [place], [address] Hemoglobin (Bld) [Mass/Vol] 16.0 g/dL Normal 13.0-16.5 [facility] Comment on above: Performed By: #### L 300.8000, L100.0100, L500.2500 ####[facility] [address] [place], [address] IG% 0.200 Normal 0.0-0.9 [facility] Comment on above: Result Comment: IG% - Immature Granulocytes (promyelocytes, myelocytes andmetamyelocytes) > 1% indicates that a LEFT SHIFT is Present. Performed By: #### L 300.8000, L100.0100, L500.2500 ####[facility] [address] [place], [address] Lymphocytes/100 WBC (Bld) 19.0 % Normal 19-41 [facility] Comment on above: Performed By: #### L 300.8000, L100.0100, L500.2500 ####[facility] [address] [place], [address] MCH (RBC) [Entitic mass] 30.6 pg Normal 27.0-32.0 [facility] Comment on above: Performed By: #### L 300.8000, L100.0100, L500.2500 ####[facility] [address] [place], [address] MCHC (RBC) [Mass/Vol] 35.2 g/dL Normal 32-36 [facility] Comment on above: Performed By: #### L 300.8000, L100.0100, L500.2500 ####[facility] [address] [place], [address] MCV (RBC) [Entitic vol] 86.8 fL Normal 80-94 [facility] Comment on above: Performed By: #### L 300.8000, L100.0100, L500.2500 ####[facility] [address] [place], [address] Monocytes/100 WBC (Bld) 5.2 % Normal 0-10 [facility] Comment on above: Performed By: #### L 300.8000, L100.0100, L500.2500 ####[facility] [address] [place], [address] Neutrophils/100 WBC (Bld) 72.0 % High 47-70 [facility] Comment on above: Performed By: #### L 300.8000, L100.0100, L500.2500 ####[facility] [address] [place], [address] Nucleated RBC (Bld) [#/Vol] 0 10*3/uL Normal 0-5 [facility] Comment on above: Performed By: #### L 300.8000, L100.0100, L500.2500 ####[facility] [address] [place], [address] Platelet mean volume (Bld) [Entitic vol] 9.8 fL Normal 6.2-12.0 [facility] Comment on above: Performed By: #### L 300.8000, L100.0100, L500.2500 ####[facility] [address] [place], [address] Platelets (Bld) [#/Vol] 275 10*3/uL Normal 150-450 [facility] Comment on above: Performed By: #### L 300.8000, L100.0100, L500.2500 ####[facility] [address] [place], [address] RBC (Bld) [#/Vol] 5.23 10*6/uL Normal 4.6-6.2 [facility] Comment on above: Performed By: #### L 300.8000, L100.0100, L500.2500 ####[facility] [address] [place], [address] RDW SD 37.9 fl Normal 35.1-43.9 [facility] Comment on above: Performed By: #### L 300.8000, L100.0100, L500.2500 ####[facility] [address] [place], [address] WBC (Bld) [#/Vol] 6.5 10*3/uL Normal 4.4-11.0 [facility] Comment on above: Performed By: #### L 300.8000, L100.0100, L500.2500 ####[facility] [address] [place], [address] CO2 (BldV) [Moles/Vol]Ordere d By: Luis Angel Win on 01-10-2025 CO2 [Moles/Vol] 25 mmol/L 23-33 [facility] Carbon dioxide, total [Moles /volume] in Central venous bloodOrdered By: Luis Angel Win on 01-10-2025 CO2 [Moles/Vol] 18.2 mmol/L Low 21.0-32.0 [facility] Chest PA and Lateralon 01-10 Chest PA and Lateral Normal [facility] Chloride assayOrdered By: Kailash Win on 01-10-2025 Chloride [Moles/Vol] 102 mmol/L 98-108 [facility] D-Dimer Quantitative (DVT/PE )on 01-10-2025 D-DIMER QUANT 0.27 FEU/ug/m Normal 0.27-0.49 [facility] Comment on above: Result Comment: NORM AL D-Dimer level (<0.50) indicates no DVT or PE. Performed By: #### L 300.8000, L100.0100, L500.2500 ####[facility] [address] [place], [address] Emergency Department Summary on 01-10-2025 Emergency Department Summary Normal [facility] Eosinophil percentageOrdered By: Luis Angel Win on 07-14-2025 Eosinophils/100 WBC (Bld) 3.1 % 0-5 [facility] Erythrocyte distribution wid th ratioOrdered By: Luis Angel Win on 01-10-2025 Erythrocyte distribution width (RBC) [Ratio] 11.9 % 11.6-14.6 [facility] Erythrocyte distribution wid th standard deviationOrdered By: Luis Angel Win on 01-10-2025 Erythrocyte distribution width (RBC) [Ratio] 37.9 fl 35.1-43.9 [facility] Glomerular filtration rate ( GFR) estimation/1.73 sq m using serum, plasma, or whole bOrdered By: Luis Angel Win on 01-10-2025 GFR/1.73 sq M.predicted among non-blacks MDRD (S/P/Bld) [Vol rate/Area] 82 mL/min/{1.73_m2} >60 [facility] Comment on above: mL/min/1.73m2 CKD-EP I Creatinine Equation (2020) Hematocrit Auto (Bld) [Volum e fraction]Ordered By: Luis Angel Win on 01-10-2025 Hematocrit (Bld) [Volume fraction] 45.4 % 40-54 [facility] Hemoglobin measurementOrdere d By: Luis Angel Win on 01-10-2025 Hemoglobin (Bld) [Mass/Vol] 16.0 g/dL 13.0-16.5 [facility] Immature granulocytes/100 WB C Auto (Bld)Ordered By: Luis Angel Win on 01-10-2025 Immature granulocytes/100 WBC (Bld) 0.200 % 0.0-0.9 [facility] Comment on above: IG% - Immature Granu locytes (promyelocytes, myelocytes and metamyelocytes) > 1% indicates that a LEFT SHIFT is Present. Ketones Test strip Ql (U)Ord ered By: Luis Angel Win on 01-10-2025 Ketones Ql (U) Negative Negative [facility] L501.4021on 01-10-2025 Trop T High Sen < 6 Normal <=22 [facility] Comment on above: Performed By: #### L 501.4021 ####[facility] [address] [place], [address] MCV (mean corpuscular volume ) determinationOrdered By: Luis Angel Win on 01-10-2025 MCV (RBC) [Entitic vol] 86.8 fL 80-94 [facility] Mean corpuscular hemoglobin (MCH) determinationOrdered By: Luis Angel Win on 01-10-2025 MCH (RBC) [Entitic mass] 30.6 pg 27.0-32.0 [facility] Mean corpuscular hemoglobin concentration (MCHC) determinationOrdered By: Luis Angel Win on 01-10-2025 MCHC (RBC) [Mass/Vol] 35.2 g/dL 32-36 [facility] Mean platelet volume determi nationOrdered By: Luis Angel Win on 01-10-2025 Platelet mean volume (Bld) [Entitic vol] 9.8 fL 6.2-12.0 [facility] Microscopic analysis of urin e for red blood cells (RBC)Ordered By: Luis Angel Win on 01-10-2025 Microscopic analysis of urine for red blood cells (RBC) 0-5 SEEN /hpf 0-5 [facility] Monocyte percentageOrdered B y: Luis Angel Win on 01-10-2025 Monocytes/100 WBC (Bld) 5.2 % 0-10 [facility] Mucus LM Ql (Urine sed)Order ed By: Luis Angel Win on 01-10-2025 Mucus Ql (Urine sed) 0 SEEN /hpf [facility] Neutrophil percentageOrdered By: Luis Angel Win on 01-10-2025 Neutrophils/100 WBC (Bld) 72.0 % High 47-70 [facility] Nitrite Test strip Ql (U)Ord ered By: Luis Angel Win on 01-10-2025 Nitrite Ql (U) Negative Negative [facility] No Panel InformationOrdered By: Luis Angel Win on 01-10-2025 Blood Gas Sample Site Not entered [facility] Blood Gas Specimen Type TRENT [facility] Oxygen Delivery Device Room Air [facility] Nucleated red blood cell per centageOrdered By: Luis Angel Win on 01-10-2025 Nucleated RBC/100 WBC (Bld) [Ratio] 0 % 0-5 [facility] Platelet countOrdered By: Kailash Win on 01-10-2025 Platelets (Bld) [#/Vol] 275 10*3/uL 150-450 [facility] Potassium measurement (mass/ volume)Ordered By: Luis Angel Win on 01-10-2025 Potassium (Unsp spec) [Mass/Vol] 4.1 mmol/L 3.3-5.1 [facility] Comment on above: Hemolysis present, R esults could be affected. Protein Test strip Ql (U)Ord ered By: Luis Angel Win on 01-10-2025 Protein Ql (U) Negative Negative [facility] RBC Auto (Bld) [#/Vol]Ordere d By: Luis Angel Win on 01-10-2025 RBC (Bld) [#/Vol] 5.23 10*6/uL 4.6-6.2 [facility] Serum creatinine measurement (mass/volume)Ordered By: Luis Angel Win on 01-10-2025 Creatinine [Mass/Vol] 1.21 mg/dL High 0.70-1.20 [facility] Serum glucose measurement (m ass/volume)Ordered By: Luis Angel Win on 01-10-2025 Glucose [Mass/Vol] 202 mg/dL High 70-99 [facility] Serum or plasma calcium summer urement (mass/volume)Ordered By: Luis Angel Win on 01-10-2025 Calcium [Mass/Vol] 10.0 mg/dL 7.6-11.0 [facility] Serum or plasma urea nitroge n measurement (mass/volume)Ordered By: Luis Angel Win on 01-10-2025 Urea nitrogen [Mass/Vol] 11 mg/dL 4-19 [facility] Sodium levelOrdered By: Luis Angel Win on 01-10-2025 Sodium [Moles/Vol] 137 mmol/L 133-145 [facility] Squamous epithelial cells de tection in urine sediment by light microscopyOrdered By: Luis Angel Win on 01-10-2025 Epithelial cells.squamous LM Ql (Urine sed) 0-5 SEEN /hpf 0-5 [facility] Troponin T.cardiac [Mass/vol ume] in Serum or Plasma by High sensitivity methodOrdered By: Luis Angel Win on 01-10-2025 Troponin T.cardiac High sensitivity method [Mass/Vol] < 6 ng/L <22 [facility] Urinalysis, Completeon 01-10 AMORPHOUS 1+ Normal [facility] Comment on above: Order Comment: CLEAN CATCH Performed By: #### L 400.0001 ####[facility] [address] [place], [address] EPI,SQUAMOUS 0-5 SEEN Normal 0-5 [facility] Comment on above: Order Comment: CLEAN CATCH Performed By: #### L 400.0001 ####[facility] [address] [place], [address] RBC 0-5 SEEN Normal 0-5 [facility] Comment on above: Order Comment: CLEAN CATCH Performed By: #### L 400.0001 ####[facility] [address] [place], [address] WBC 0-5 SEEN Normal 0-5 [facility] Comment on above: Order Comment: CLEAN CATCH Performed By: #### L 400.0001 ####[facility] [address] [place], [address] BACTERIA 0 SEEN Normal None Seen [facility] Comment on above: Order Comment: CLEAN CATCH Performed By: #### L 400.0001 ####[facility] [address] [place], [address] Mucus Ql (Urine sed) 0 SEEN Normal [facility] Comment on above: Order Comment: CLEAN CATCH Performed By: #### L 400.0001 ####[facility] [address] [place], [address] Urine clarityOrdered By: Marbella Win on 01-10-2025 Clarity (U) Clear Clear [facility] Urine color determinationOrd ered By: Luis Angel Win on 01-10-2025 Color (U) Yellow Yellow [facility] Urine glucose detectionOrder ed By: Luis Angel Win on 01-10-2025 Glucose Ql (U) Normal mg/dl Normal [facility] Urine leukocyte esterase det ection by dipstickOrdered By: Luis Angel Win on 01-10-2025 Leukocyte esterase Test strip Ql (U) Negative Negative [facility] Urine pHOrdered By: Luis Angel griffin on 01-10-2025 pH (U) 7.0 [pH] 5.0 - 8.0 [facility] Urine sediment bacteria coun t by microscopy (number/high power field)Ordered By: Luis Angel Win on 01-10-2025 Bacteria LM.HPF (Urine sed) [#/Area] 0 /[HPF] None Seen [facility] Urine specific gravity measu rementOrdered By: Luis Angel Win on 01-10-2025 Specific gravity (U) [Rel density] 1.010 1.002-1.03 0 [facility] Urine urobilinogen measureme ntOrdered By: Luis Angel Win on 01-10-2025 Urobilinogen Ql (U) Normal mg/dl Normal [facility] Venous Blood Gason Blood Gas Type TRENT Normal [facility] Comment on above: Performed By: #### L 9000.0810 ####[facility] [address] [place], [address] CO2 [Moles/Vol] 25 mmol/L Normal 23-33 [facility] Comment on above: Performed By: #### L 9000.0810 ####[facility] [address] [place], [address] HCO3 (Bld) [Moles/Vol] 24 mmol/L Normal 22-26 [facility] Comment on above: Performed By: #### L 0.0810 ####[facility] [address] [place], [address] O2 Delivery Dev Room Air Normal [facility] Comment on above: Performed By: #### L 8999.0810 ####[facility] [address] [place], [address] SITE Not entered Normal [facility] Comment on above: Performed By: #### L 0.0810 ####[facility] [address] [place], [address] VBG BE 0 mmol/L Normal -1.0-3.5 [facility] Comment on above: Performed By: #### L 9000.0810 ####[facility] [address] [place], [address] VBG pCO2 36.8 mmHg Low 41-51 [facility] Comment on above: Performed By: #### L 9000.0810 ####[facility] [address] [place], [address] VBG pH 7.42 Normal 7.32-7.42 [facility] Comment on above: Performed By: #### L 9000.0810 ####[facility] [address] [place], [address] VBG PO2 46 mmHg High 25-40 [facility] Comment on above: Performed By: #### L 9000.0810 ####[facility] [address] [place], [address] VBG SO2 83 High 50-70 [facility] Comment on above: Performed By: #### L 9000.0810 ####[facility] [address] [place], [address] Venous blood base excess corina surementOrdered By: Luis Angel Win on 01-10-2025 Base excess Calc (BldV) [Moles/Vol] 0 mmol/L -1.0-3.5 [facility] Venous blood bicarbonate corina surementOrdered By: Luis Angel Win on 01-10-2025 HCO3 (Bld) [Moles/Vol] 24 mmol/L 22-26 [facility] Venous blood oxygen saturati on measurementOrdered By: Luis Angel Win on 01-10-2025 Oxygen saturation in Blood 83 % High 50-70 [facility] Venous blood pH measurementO rdered By: Luis Angel Win on 01-10-2025 pH (BldV) 7.42 [pH] 7.32-7.42 [facility] Venous blood partial pressur e of carbon dioxide measurementOrdered By: Luis Angel Win on 01-10-2025 CO2 (BldV) [Partial pressure] 36.8 mm[Hg] Low 41-51 [facility] Venous blood partial pressur e of oxygen measurementOrdered By: Luis Angel Win on 01-10-2025 Oxygen (BldV) [Partial pressure] 46 mm[Hg] High 25-40 [facility] White blood cell (WBC) count Ordered By: Luis Angel Win on 01-10-2025 WBC (Bld) [#/Vol] 6.5 10*3/uL 4.4-11.0 [facility] White blood cell countOrdere d By: Luis Angel Win on 01-10-2025 White blood cell count 0-5 SEEN /hpf 0-5 [facility] Internal Medicine Office Vis iton 11-24-2024 Internal Medicine Office Visit Normal [facility] Anion gap in Serum or Plasma Ordered By: Hina Sampson on 11-10-2024 Anion gap [Moles/Vol] 10 mmol/L 5-15 [facility] BUN/creatinine ratioOrdered By: Hina Sampson on 11-10-2024 Urea nitrogen/Creatinine [Mass ratio] 12.3 mg/mg 10-20 [facility] Bilirubin, totalOrdered By: Hina Sampson on 11-10-2024 Bilirubin [Mass/Vol] 0.58 mg/dL 0.00-1.30 [facility] Carbon dioxide, total [Moles /volume] in Central venous bloodOrdered By: Hina Sampson on 11-10-2024 CO2 [Moles/Vol] 22.8 mmol/L 21.0-32.0 [facility] Chloride assayOrdered By: Susana Sampson on 11-10-2024 Chloride [Moles/Vol] 104 mmol/L 98-108 [facility] Comprehensive Metabolic Prof ilon 11-10-2024 Albumin [Mass/Vol] 4.1 g/dL Normal 3.5-5.0 [facility] Comment on above: Performed By: #### L 500.4050, L501.9520 ####[facility] [address] [place], [address] Albumin/Globulin [Mass ratio] 1.3 {ratio} Normal 0.9-2.4 [facility] Comment on above: Performed By: #### L 500.4050, L501.20 ####[facility] [address] [place], [address] ALK PHOS 131 U/L High 40-129 [facility] Comment on above: Performed By: #### L 500.4050, L5.9520 ####[facility] [address] [place], [address] ALT [Catalytic activity/Vol] 113 U/L High <=46 [facility] Comment on above: Performed By: #### L 500.4050, L5.20 ####[facility] [address] [place], [address] AST [Catalytic activity/Vol] 51 U/L High <=37 [facility] Comment on above: Performed By: #### L 500.4050, L5.20 ####[facility] [address] [place], [address] Bilirubin [Mass/Vol] 0.58 mg/dL Normal 0.00-1.30 [facility] Comment on above: Performed By: #### L 500.4050, L5.20 ####[facility] [address] [place], [address] BUN/CRE 12.3 RATIO Normal 10-20 [facility] Comment on above: Performed By: #### L 500.4050, L501.9520 ####[facility] [address] [place], [address] Calcium [Mass/Vol] 9.7 mg/dL Normal 7.6-11.0 [facility] Comment on above: Performed By: #### L 500.4050, L5.9520 ####[facility] [address] [place], [address] Chloride [Moles/Vol] 104 mmol/L Normal 98-108 [facility] Comment on above: Performed By: #### L 500.4050, L501.9520 ####[facility] [address] [place], [address] CO2 [Moles/Vol] 22.8 mmol/L Normal 21.0-32.0 [facility] Comment on above: Performed By: #### L 500.4050, L501.9520 ####[facility] [address] [place], [address] Creatinine [Mass/Vol] 1.04 mg/dL Normal 0.70-1.20 [facility] Comment on above: Performed By: #### L 500.4050, L501.9520 ####[facility] [address] [place], [address] GAP 10 Normal 5-15 [facility] Comment on above: Performed By: #### L 500.4050, L501.9520 ####[facility] [address] [place], [address] GFR/1.73 sq M.predicted among non-blacks MDRD (S/P/Bld) [Vol rate/Area] 98 mL/min/{1.73_m2} Normal >60 [facility] Comment on above: Result Comment: mL/m in/1.73m2 CKD-EPI Creatinine Equation (2020) Performed By: #### L 500.4050, L501.9520 ####[facility] [address] [place], [address] Globulin (S) [Mass/Vol] 3.1 g/dL Normal 2.2-4.2 [facility] Comment on above: Performed By: #### L 500.4050, L501.9520 ####[facility] [address] [place], [address] Glucose [Mass/Vol] 108 mg/dL High 70-99 [facility] Comment on above: Performed By: #### L 500.4050, L501.9520 ####[facility] [address] [place], [address] Potassium [Moles/Vol] 4.1 mmol/L Normal 3.3-5.1 [facility] Comment on above: Performed By: #### L 500.4050, L501.9520 ####[facility] [address] [place], [address] Sodium [Moles/Vol] 137 mmol/L Normal 133-145 [facility] Comment on above: Performed By: #### L 500.4050, L501.9520 ####[facility] [address] [place], [address] T PROT 7.2 g/dL Normal 5.9-8.4 [facility] Comment on above: Performed By: #### L 500.4050, L501.9520 ####[facility] [address] [place], [address] Urea nitrogen [Mass/Vol] 13 mg/dL Normal 4-19 [facility] Comment on above: Performed By: #### L 500.4050, L501.9520 ####[facility] [address] [place], [address] Gastroenterology Visit Repor ton 11-10-2024 Gastroenterology Visit Report Normal [facility] Glomerular filtration rate ( GFR) estimation/1.73 sq m using serum, plasma, or whole bOrdered By: Hina Sampson on 11-10-2024 GFR/1.73 sq M.predicted among non-blacks MDRD (S/P/Bld) [Vol rate/Area] 98 mL/min/{1.73_m2} >60 [facility] Comment on above: mL/min/1.73m2 CKD-EP I Creatinine Equation (2020) Laboratory - Chemistry and C hemistry - challengeOrdered By: Hina Sampson on 11-10-2024 AST [Catalytic activity/Vol] 51 U/L High <38 [facility] Potassium measurement (mass/ volume)Ordered By: Hina Sampson on 11-10-2024 Potassium (Unsp spec) [Mass/Vol] 4.1 mmol/L 3.3-5.1 [facility] Serum creatinine measurement (mass/volume)Ordered By: Hina Sampson on 11-10-2024 Creatinine [Mass/Vol] 1.04 mg/dL 0.70-1.20 [facility] Serum globulin measurementOr dered By: Hina Sampson on 11-10-2024 Globulin (S) [Mass/Vol] 3.1 g/dL 2.2-4.2 [facility] Serum glucose measurement (m ass/volume)Ordered By: Hina Sampson on 11-10-2024 Glucose [Mass/Vol] 108 mg/dL High 70-99 [facility] Serum or plasma alanine recinos otransferase (ALT) measurementOrdered By: Hina Sampson on 11-10-2024 ALT [Catalytic activity/Vol] 113 U/L High <47 [facility] Serum or plasma albumin summer urement (mass/volume)Ordered By: Hina Sampson on 11-10-2024 Albumin [Mass/Vol] 4.1 g/dL 3.5-5.0 [facility] Serum or plasma albumin/glob ulin mass ratioOrdered By: Hina Sampson on 11-10-2024 Albumin/Globulin [Mass ratio] 1.3 {ratio} 0.9-2.4 [facility] Serum or plasma alkaline nirav sphatase measurementOrdered By: Hina Sampson on 11-10-2024 ALP [Catalytic activity/Vol] 131 U/L High 40-129 [facility] Serum or plasma calcium summer urement (mass/volume)Ordered By: Hina Sampson on 11-10-2024 Calcium [Mass/Vol] 9.7 mg/dL 7.6-11.0 [facility] Serum or plasma urea nitroge n measurement (mass/volume)Ordered By: Hina Sampson on 11-10-2024 Urea nitrogen [Mass/Vol] 13 mg/dL 4-19 [facility] Sodium levelOrdered By: Errol Sampson on 11-10-2024 Sodium [Moles/Vol] 137 mmol/L 133-145 [facility] TSH DL <= 0.005 mIU/L QnOrde red By: Danny Walter on 11-10-2024 TSH Qn 4.080 uIU/mL 0.300-4.20 0 [facility] Thyroid Stim Hormone (TSH)on 11-10-2024 TSH 4.080 uIU/mL Normal 0.300-4.20 0 [facility] Comment on above: Performed By: #### L 500.4050, L501.9520 ####[facility] [address] [place], [address] Total proteinOrdered By: Radha Sampson on 11-10-2024 Protein [Mass/Vol] 7.2 g/dL 5.9-8.4 [facility] Internal Medicine Office Vis iton 11-03-2024 Internal Medicine Office Visit Normal [facility] CAROLANN w/ Reflex Mult Confirmon 08-05-2024 CAROLANN,DIRECT Negative Normal Negative [facility] Comment on above: Result Comment: Perf ormed at: [facility] [address] [id number] Director: Popeye Joseph PhD, Phone: [phone] Performed By: #### L 3100.5440, L803.2200, L3300.1200, L3100.5450, L100.0100 ####[facility] [address] [place], [address] ANCAon 08-05-2024 Atypical pANCA <1:20 Normal Neg:<1:20 [facility] Comment on above: Result Comment: The atypical pANCA pattern has been observed in asignificant percentage of patients with ulcerative colitis,primary sclerosing cholangitis and autoimmune hepatitis. Performed By: #### L 3100.5440, L803.2200, L3300.1200, L3100.5450, L100.0100 ####[facility] [address] [place], [address] Cytoplasmic Ab <1:20 Normal Neg:<1:20 [facility] Comment on above: Performed By: #### L 3100.5440, L803.2200, L3300.1200, L3100.5450, L100.0100 ####[facility] [address] [place], [address] Perinuclear Ab. <1:20 Normal Neg:<1:20 [facility] Comment on above: Result Comment: The presence of positive fluorescence exhibiting P-ANCA orC-ANCA patterns alone is not specific for the diagnosis ofWegener's Granulomatosis (WG) or microscopic polyangiitis.Decisions about treatment should not be based solely onANCA IFA results. The [employer] ANCA Group Consensusrecommends follow up testing of positive sera with both CT-3 and MPO-ANCA enzyme immunoassays. As many as 5% serumsamples are positive only by EIA. Ref. AM J Clin Mzyltz4464;111:507-513. Performed By: #### L 3100.5440, L803.2200, L3300.1200, L3100.5450, L100.0100 ####[facility] [address] [place], [address] Anti-Smooth Muscle ABSon ANTISMOOTH MUSC 7 Units Normal 0-19 [facility] Comment on above: Result Comment: Nega tive 0 - 19 Weak positive 20 - 30 Moderate to strong positive >30 Actin Antibodies are found in 52-85% of patients with autoimmune hepatitis or chronic active hepatitis and in 22% of patients with primary biliary cirrhosis.Performed at: [address] [id number] Director: Popeye Joseph PhD, Phone: [phone] Performed By: #### L 3100.5440, L803.2200, L3300.1200, L3100.5450, L100.0100 ####[facility] [address] [place], [address] CAROLANN Comprehensive Panelon CAROLANN TABLE TNP Normal [facility] Comment on above: Performed By: #### L 3100.5440, L803.2200, L3300.1200, L3100.5450, L100.0100 ####[facility] [address] [place], [address] Absolute lymphocyte countOrd ered By: Hina Sampson on 08-04-2024 Lymphocytes Auto (Unsp spec) [#/Vol] 1.74 10*3/uL 0.83-4.51 [facility] Absolute neutrophil countOrd ered By: Hinagalina Sampson on 08-04-2024 Neutrophils (Bld) [#/Vol] 4.1 10*3/uL 2.0-7.7 [facility] Automated lymphocyte count a s percentage of total leukocytesOrdered By: Hina Sampson on 08-04-2024 Lymphocytes/100 WBC Auto (Unsp spec) 25.7 % 19-41 [facility] Basophil percentageOrdered B y: Hina Sampson on 08-04-2024 Basophils/100 WBC (Bld) 0.6 % 0-1 [facility] CBC W/Diff, Automatedon Absolute Lymph 1.74 X10 3/uL Normal 0.83-4.51 [facility] Comment on above: Performed By: #### L 3100.5440, L803.2200, L3300.1200, L3100.5450, L100.0100 ####[facility] [address] [place], [address] Absolute Neut 4.1 X10 3/uL Normal 2.0-7.7 [facility] Comment on above: Performed By: #### L 3100.5440, L803.2200, L3300.1200, L3100.5450, L100.0100 ####[facility] [address] [place], [address] Basophils/100 WBC (Bld) 0.6 % Normal 0-1 [facility] Comment on above: Performed By: #### L 3100.5440, L803.2200, L3300.1200, L3100.5450, L100.0100 ####[facility] [address] [place], [address] Eosinophils/100 WBC (Bld) 4.6 % Normal 0-5 [facility] Comment on above: Performed By: #### L 3100.5440, L803.2200, L3300.1200, L3100.5450, L100.0100 ####[facility] [address] [place], [address] Erythrocyte distribution width (RBC) [Ratio] 12.0 % Normal 11.6-14.6 [facility] Comment on above: Performed By: #### L 3100.5440, L803.2200, L3300.1200, L3100.5450, L100.0100 ####[facility] [address] [place], [address] Hematocrit (Bld) [Volume fraction] 45.4 % Normal 40-54 [facility] Comment on above: Performed By: #### L 3100.5440, L803.2200, L3300.1200, L3100.5450, L100.0100 ####[facility] [address] [place], [address] Hemoglobin (Bld) [Mass/Vol] 15.7 g/dL Normal 13.0-16.5 [facility] Comment on above: Performed By: #### L 3100.5440, L803.2200, L3300.1200, L3100.5450, L100.0100 ####[facility] [address] [place], [address] IG% 0.400 Normal 0.0-0.9 [facility] Comment on above: Result Comment: IG% - Immature Granulocytes (promyelocytes, myelocytes andmetamyelocytes) > 1% indicates that a LEFT SHIFT is Present. Performed By: #### L 3100.5440, L803.2200, L3300.1200, L3100.5450, L100.0100 ####[facility] [address] [place], [address] Lymphocytes/100 WBC (Bld) 25.7 % Normal 19-41 [facility] Comment on above: Performed By: #### L 3100.5440, L803.2200, L3300.1200, L3100.5450, L100.0100 ####[facility] [address] [place], [address] MCH (RBC) [Entitic mass] 30.8 pg Normal 27.0-32.0 [facility] Comment on above: Performed By: #### L 3100.5440, L803.2200, L3300.1200, L3100.5450, L100.0100 ####[facility] [address] [place], [address] MCHC (RBC) [Mass/Vol] 34.6 g/dL Normal 32-36 [facility] Comment on above: Performed By: #### L 3100.5440, L803.2200, L3300.1200, L3100.5450, L100.0100 ####[facility] [address] [place], [address] MCV (RBC) [Entitic vol] 89.0 fL Normal 80-94 [facility] Comment on above: Performed By: #### L 3100.5440, L803.2200, L3300.1200, L3100.5450, L100.0100 ####[facility] [address] [place], [address] Monocytes/100 WBC (Bld) 8.0 % Normal 0-10 [facility] Comment on above: Performed By: #### L 3100.5440, L803.2200, L3300.1200, L3100.5450, L100.0100 ####[facility] [address] [place], [address] Neutrophils/100 WBC (Bld) 60.7 % Normal 47-70 [facility] Comment on above: Performed By: #### L 3100.5440, L803.2200, L3300.1200, L3100.5450, L100.0100 ####[facility] [address] [place], [address] Nucleated RBC (Bld) [#/Vol] 0 10*3/uL Normal 0-5 [facility] Comment on above: Performed By: #### L 3100.5440, L803.2200, L3300.1200, L3100.5450, L100.0100 ####[facility] [address] [place], [address] Platelet mean volume (Bld) [Entitic vol] 9.2 fL Normal 6.2-12.0 [facility] Comment on above: Performed By: #### L 3100.5440, L803.2200, L3300.1200, L3100.5450, L100.0100 ####[facility] [address] [place], [address] Platelets (Bld) [#/Vol] 256 10*3/uL Normal 150-450 [facility] Comment on above: Performed By: #### L 3100.5440, L803.2200, L3300.1200, L3100.5450, L100.0100 ####[facility] [address] [place], [address] RBC (Bld) [#/Vol] 5.10 10*6/uL Normal 4.6-6.2 [facility] Comment on above: Performed By: #### L 3100.5440, L803.2200, L3300.1200, L3100.5450, L100.0100 ####[facility] [address] [place], [address] RDW SD 39.3 fl Normal 35.1-43.9 [facility] Comment on above: Performed By: #### L 3100.5440, L803.2200, L3300.1200, L3100.5450, L100.0100 ####[facility] [address] [place], [address] WBC (Bld) [#/Vol] 6.8 10*3/uL Normal 4.4-11.0 [facility] Comment on above: Performed By: #### L 3100.5440, L803.2200, L3300.1200, L3100.5450, L100.0100 ####[facility] [address] [place], [address] Eosinophil percentageOrdered By: Hina Sampson on 08-04-2024 Eosinophils/100 WBC (Bld) 4.6 % 0-5 [facility] Erythrocyte distribution wid th ratioOrdered By: Hina Sampson on 08-04-2024 Erythrocyte distribution width (RBC) [Ratio] 12.0 % 11.6-14.6 [facility] Erythrocyte distribution wid th standard deviationOrdered By: Hina Sampson on 08-04-2024 Erythrocyte distribution width (RBC) [Ratio] 39.3 fl 35.1-43.9 [facility] Gastroenterology Visit Repor ton 08-04-2024 Gastroenterology Visit Report Normal [facility] Hematocrit Auto (Bld) [Volum e fraction]Ordered By: Hina Sampson on 08-04-2024 Hematocrit (Bld) [Volume fraction] 45.4 % 40-54 [facility] Hemoglobin measurementOrdere d By: Hina Sampson on 08-04-2024 Hemoglobin (Bld) [Mass/Vol] 15.7 g/dL 13.0-16.5 [facility] Immature granulocytes/100 WB C Auto (Bld)Ordered By: Hina Sampson on 08-04-2024 Immature granulocytes/100 WBC (Bld) 0.400 % 0.0-0.9 [facility] Comment on above: IG% - Immature Granu locytes (promyelocytes, myelocytes and metamyelocytes) > 1% indicates that a LEFT SHIFT is Present. MCV (mean corpuscular volume ) determinationOrdered By: Hina Sampson on 08-04-2024 MCV (RBC) [Entitic vol] 89.0 fL 80-94 [facility] Mean corpuscular hemoglobin (MCH) determinationOrdered By: Hina Sampson on 08-04-2024 MCH (RBC) [Entitic mass] 30.8 pg 27.0-32.0 [facility] Mean corpuscular hemoglobin concentration (MCHC) determinationOrdered By: Hina Sampson on 08-04-2024 MCHC (RBC) [Mass/Vol] 34.6 g/dL 32-36 [facility] Mean platelet volume determi nationOrdered By: Hina Sampson on 08-04-2024 Platelet mean volume (Bld) [Entitic vol] 9.2 fL 6.2-12.0 [facility] Monocyte percentageOrdered B y: Hina Sampson on 08-04-2024 Monocytes/100 WBC (Bld) 8.0 % 0-10 [facility] Neutrophil percentageOrdered By: Hina Sampson on 08-04-2024 Neutrophils/100 WBC (Bld) 60.7 % 47-70 [facility] Nucleated red blood cell per centageOrdered By: Hina Sampson on 08-04-2024 Nucleated RBC/100 WBC (Bld) [Ratio] 0 % 0-5 [facility] Platelet countOrdered By: Susana Sampson on 08-04-2024 Platelets (Bld) [#/Vol] 256 10*3/uL 150-450 [facility] RBC Auto (Bld) [#/Vol]Ordere d By: Hina Sampson on 08-04-2024 RBC (Bld) [#/Vol] 5.10 10*6/uL 4.6-6.2 [facility] Serum DNA double strand anti body assay (units/volume)Ordered By: Hina Sampson on 08-04-2024 DNA double strand Ab Qn (S) [facility] Comment on above: Test not performed Serum Scl-70 antibody assay (units/volume)Ordered By: Hina Sampson on 08-04-2024 SCL-70 extractable nuclear Ab Qn (S) [facility] Comment on above: Test not performed Serum classic neutrophil cyt oplasmic antibody assay (units/volume)Ordered By: Hina Sampson on 08-04-2024 Neutrophil cytoplasmic Ab.classic Qn (S) <1:20 titer Neg:<1:20 [facility] Serum or plasma actin IgG an tibody assay (units/volume)Ordered By: Hina Sampson on 08-04-2024 Actin IgG Qn 7 Units 0-19 [facility] Comment on above: Negative 0 - 19 Weak positive 20 - 30 Moderate to strong positive >30 Actin Antibodies are found in 52-85% of patients with autoimmune hepatitis or chronic active hepatitis and in 22% of patients with primary biliary cirrhosis.Performed at: [facility] [id number] Director: Popeye Joseph PhD, Phone: [phone] Serum perinuclear neutrophil cytoplasmic antibody titer by immunofluorescenceOrdered By: Hina Sampson on 08-04-2024 Neutrophil cytoplasmic Ab.perinuclear IF (S) [Titer] <1:20 titer Neg:<1:20 [facility] Comment on above: The presence of posi tive fluorescence exhibiting P-ANCA orC-ANCA patterns alone is not specific for the diagnosis ofWegener's Granulomatosis (WG) or microscopic polyangiitis.Decisions about treatment should not be based solely onANCA IFA results. The [employer] AN[employer] Consensusrecommends follow up testing of positive sera with both CT-3 and MPO-ANCA enzyme immunoassays. As many as 5% serumsamples are positive only by EIA. Ref. AM J Clin Mkmgxu5679;111:507-513. White blood cell (WBC) count Ordered By: Hina Sampson on 08-04-2024 WBC (Bld) [#/Vol] 6.8 10*3/uL 4.4-11.0 [facility] Absolute lymphocyte countOrd ered By: Jese Sharmaradha on 07-23-2024 Lymphocytes Auto (Unsp spec) [#/Vol] 1.82 10*3/uL 0.83-4.51 [facility] Absolute neutrophil countOrd ered By: Jese Sharmaradha on 07-23-2024 Neutrophils (Bld) [#/Vol] 5.3 10*3/uL 2.0-7.7 [facility] Albumin to globulin ratioOrd ered By: Jese Sharmaradha on 07-23-2024 Albumin/Globulin [Mass ratio] 0.9 {ratio} 0.9-2.4 [facility] Automated lymphocyte count a s percentage of total leukocytesOrdered By: Jese Saulsanket on 07-23-2024 Lymphocytes/100 WBC Auto (Unsp spec) 23.2 % 19-41 [facility] Basophil percentageOrdered B y: Jese Rosie on 07-23-2024 Basophils/100 WBC (Bld) 0.8 % 0-1 [facility] Bilirubin, totalOrdered By: Jese Rosie on 07-23-2024 Bilirubin [Mass/Vol] 0.60 mg/dL 0.20-1.00 [facility] Comment on above: For patients on eltr ombopag therapy, use of Dimension Dewar TBIL is not recommended. Blood urea nitrogen (BUN)/cr eatinine ratioOrdered By: Jese Rosie on 07-23-2024 Urea nitrogen/Creatinine [Mass ratio] 9.8 mg/mg Low 10-20 [facility] CBC W/Diff, Automatedon 07-01 Absolute Lymph 1.82 X10 3/uL Normal 0.83-4.51 [facility] Comment on above: Performed By: #### L 500.4050, L100.0100 ####[facility] [address] [place], [place], [id number] Absolute Neut 5.3 X10 3/uL Normal 2.0-7.7 [facility] Comment on above: Performed By: #### L 500.4050, L100.0100 ####[facility] [address] [place], [address] Basophils/100 WBC (Bld) 0.8 % Normal 0-1 [facility] Comment on above: Performed By: #### L 500.4050, L100.0100 ####[facility] [address] [place], [address] Eosinophils/100 WBC (Bld) 2.2 % Normal 0-5 [facility] Comment on above: Performed By: #### L 500.4050, L100.0100 ####[facility] [address] [place], [address] Erythrocyte distribution width (RBC) [Ratio] 12.0 % Normal 11.6-14.6 [facility] Comment on above: Performed By: #### L 500.4050, L100.0100 ####[facility] [address] [place], [address] Hematocrit (Bld) [Volume fraction] 47.0 % Normal 40-54 [facility] Comment on above: Performed By: #### L 500.4050, L100.0100 ####[facility] [address] [place], [address] Hemoglobin (Bld) [Mass/Vol] 16.3 g/dL Normal 13.0-16.5 [facility] Comment on above: Performed By: #### L 500.4050, L100.0100 ####[facility] [address] [place], [address] IG% 0.100 Normal 0.0-0.9 [facility] Comment on above: Result Comment: IG% - Immature Granulocytes (promyelocytes, myelocytes andmetamyelocytes) > 1% indicates that a LEFT SHIFT is Present. Performed By: #### L 500.4050, L100.0100 ####[facility] [address] [place], [address] Lymphocytes/100 WBC (Bld) 23.2 % Normal 19-41 [facility] Comment on above: Performed By: #### L 500.4050, L100.0100 ####[facility] [address] [place], [address] MCH (RBC) [Entitic mass] 30.7 pg Normal 27.0-32.0 [facility] Comment on above: Performed By: #### L 500.4050, L100.0100 ####[facility] [address] [place], [address] MCHC (RBC) [Mass/Vol] 34.7 g/dL Normal 32-36 [facility] Comment on above: Performed By: #### L 500.4050, L100.0100 ####[facility] [address] [place], [address] MCV (RBC) [Entitic vol] 88.5 fL Normal 80-94 [facility] Comment on above: Performed By: #### L 500.4050, L100.0100 ####[facility] [address] [place], [address] Monocytes/100 WBC (Bld) 6.4 % Normal 0-10 [facility] Comment on above: Performed By: #### L 500.4050, L100.0100 ####[facility] [address] [place], [address] Neutrophils/100 WBC (Bld) 67.3 % Normal 47-70 [facility] Comment on above: Performed By: #### L 500.4050, L100.0100 ####[facility] [address] [place], [address] Nucleated RBC (Bld) [#/Vol] 0 10*3/uL Normal 0-5 [facility] Comment on above: Performed By: #### L 500.4050, L100.0100 ####[facility] [address] [place], [address] Platelet mean volume (Bld) [Entitic vol] 9.5 fL Normal 6.2-12.0 [facility] Comment on above: Performed By: #### L 500.4050, L100.0100 ####[facility] [address] [place], [address] Platelets (Bld) [#/Vol] 253 10*3/uL Normal 150-450 [facility] Comment on above: Performed By: #### L 500.4050, L100.0100 ####[facility] [address] [place], [address] RBC (Bld) [#/Vol] 5.31 10*6/uL Normal 4.6-6.2 [facility] Comment on above: Performed By: #### L 500.4050, L100.0100 ####[facility] [address] [place], [address] RDW SD 38.5 fl Normal 35.1-43.9 [facility] Comment on above: Performed By: #### L 500.4050, L100.0100 ####[facility] [address] [place], [address] WBC (Bld) [#/Vol] 7.8 10*3/uL Normal 4.4-11.0 [facility] Comment on above: Performed By: #### L 500.4050, L100.0100 ####[facility] [address] [place], [address] Carbon dioxide measurementOr dered By: Jese Velez on 07-23-2024 CO2 [Moles/Vol] 27.0 mmol/L 21.0-32.0 [facility] Chloride measurementOrdered By: Jese Velez on 07-23-2024 Chloride [Moles/Vol] 108 mmol/L High 98-107 [facility] Comprehensive Metabolic Prof ilon 07-23-2024 Albumin [Mass/Vol] 3.8 g/dL Normal 3.2-5.0 [facility] Comment on above: Performed By: #### L 500.4050, L100.0100 ####[facility] [address] [place], [address] Albumin/Globulin [Mass ratio] 0.9 {ratio} Normal 0.9-2.4 [facility] Comment on above: Performed By: #### L 500.4050, L100.0100 ####[facility] [address] [place], [address] ALK P 135 U/L High 45-117 [facility] Comment on above: Performed By: #### L 500.4050, L100.0100 ####[facility] [address] [place], [address] ALT [Catalytic activity/Vol] 115 U/L High 16-61 [facility] Comment on above: Performed By: #### L 500.4050, L100.0100 ####[facility] [address] [place], [address] AST [Catalytic activity/Vol] 44 U/L High 15-37 [facility] Comment on above: Performed By: #### L 500.4050, L100.0100 ####[facility] [address] [place], [address] Bilirubin [Mass/Vol] 0.60 mg/dL Normal 0.20-1.00 [facility] Comment on above: Result Comment: For patients on eltrombopag therapy, use of Dimension Dewar TBIL is not recommended. Performed By: #### L 500.4050, L100.0100 ####[facility] [address] [place], [address] BUN/CRE 9.8 RATIO Low 10-20 [facility] Comment on above: Performed By: #### L 500.4050, L100.0100 ####[facility] [address] [place], [address] CA,Total 9.6 mg/dL Normal 8.5-10.1 [facility] Comment on above: Performed By: #### L 500.4050, L100.0100 ####[facility] [address] [place], [address] Chloride [Moles/Vol] 108 mmol/L High 98-107 [facility] Comment on above: Performed By: #### L 500.4050, L100.0100 ####[facility] [address] [place], [address] CO2 [Moles/Vol] 27.0 mmol/L Normal 21.0-32.0 [facility] Comment on above: Performed By: #### L 500.4050, L100.0100 ####[facility] [address] [place], [address] Creatinine [Mass/Vol] 1.33 mg/dL High 0.70-1.30 [facility] Comment on above: Result Comment: The validity of the calculated GFR GFRAA in patients over70 years has not been determined. Clinical correlation isessential. Performed By: #### L 500.4050, L100.0100 ####[facility] [address] [place], [address] ECRCL 103.04 ml/min Normal [facility] Comment on above: Performed By: #### L 500.4050, L100.0100 ####[facility] [address] [place], [address] EST GFR - AA 80 mL/min Normal >60 [facility] Comment on above: Result Comment: Afri can Japanese GFR Calc Performed By: #### L 500.4050, L100.0100 ####[facility] [address] [place], [address] GAP 6 Normal 5-15 [facility] Comment on above: Performed By: #### L 500.4050, L100.0100 ####[facility] [address] [place], [address] GFR/1.73 sq M.predicted among non-blacks MDRD (S/P/Bld) [Vol rate/Area] 66 mL/min/{1.73_m2} Normal >60 [facility] Comment on above: Result Comment: Non- GFR Calc Performed By: #### L 500.4050, L100.0100 ####[facility] [address] [place], [address] Globulin (S) [Mass/Vol] 4.1 g/dL Normal 2.2-4.2 [facility] Comment on above: Performed By: #### L 500.4050, L100.0100 ####[facility] [address] [place], [address] Glucose [Mass/Vol] 101 mg/dL Normal 74-106 [facility] Comment on above: Result Comment: Fast ing Glucose result from 100 to 125 mg/dLsuggests IMPAIRED HOMEOSTASIS per A.D.A. criteria. Performed By: #### L 500.4050, L100.0100 ####[facility] [address] [place], [address] Potassium [Moles/Vol] 3.7 mmol/L Normal 3.5-5.1 [facility] Comment on above: Performed By: #### L 500.4050, L100.0100 ####[facility] [address] [place], [address] Sodium [Moles/Vol] 141 mmol/L Normal 136-145 [facility] Comment on above: Performed By: #### L 500.4050, L100.0100 ####[facility] [address] [place], [address] T PROT 7.9 g/dL Normal 6.4-8.2 [facility] Comment on above: Performed By: #### L 500.4050, L100.0100 ####[facility] [address] [place], [address] Urea nitrogen [Mass/Vol] 13 mg/dL Normal 7-18 [facility] Comment on above: Performed By: #### L 500.4050, L100.0100 ####[facility] [address] [place], [address] Emergency Department Summary on 07-23-2024 Emergency Department Summary Normal [facility] Eosinophil percentageOrdered By: Jese Velez on 07-23-2024 Eosinophils/100 WBC (Bld) 2.2 % 0-5 [facility] Erythrocyte distribution wid th ratioOrdered By: Jese Velez on 07-23-2024 Erythrocyte distribution width (RBC) [Ratio] 12.0 % 11.6-14.6 [facility] Erythrocyte distribution wid th standard deviationOrdered By: Jese Velez on 07-23-2024 Erythrocyte distribution width (RBC) [Ratio] 38.5 fl 35.1-43.9 [facility] Glomerular filtration rate ( GFR) estimationOrdered By: Jese Velez on 07-23-2024 GFR/1.73 sq M.predicted among non-blacks MDRD (S/P/Bld) [Vol rate/Area] 66 mL/min/{1.73_m2} >60 [facility] Comment on above: Non- GFR Calc Glucose measurementOrdered B y: Jese Velez on 07-23-2024 Glucose [Mass/Vol] 101 mg/dL 74-106 [facility] Comment on above: Fasting Glucose resu lt from 100 to 125 mg/dL suggests IMPAIRED HOMEOSTASIS per A.D.A. criteria. Hematocrit Auto (Bld) [Volum e fraction]Ordered By: Jese Velez on 01-24-2025 Hematocrit (Bld) [Volume fraction] 47.0 % 40-54 [facility] Hemoglobin measurementOrdere d By: Jese Velez on 07-23-2024 Hemoglobin (Bld) [Mass/Vol] 16.3 g/dL 13.0-16.5 [facility] Immature granulocytes/100 WB C Auto (Bld)Ordered By: Jese Velez on 07-23-2024 Immature granulocytes/100 WBC (Bld) 0.100 % 0.0-0.9 [facility] Comment on above: IG% - Immature Granu locytes (promyelocytes, myelocytes and metamyelocytes) > 1% indicates that a LEFT SHIFT is Present. Laboratory - Chemistry and C hemistry - challengeOrdered By: Jese Velez on 07-23-2024 AST [Catalytic activity/Vol] 44 U/L High 15-37 [facility] MCV (mean corpuscular volume ) determinationOrdered By: Jese Velez on 07-23-2024 MCV (RBC) [Entitic vol] 88.5 fL 80-94 [facility] Mean corpuscular hemoglobin (MCH) determinationOrdered By: Jese Velez on 07-23-2024 MCH (RBC) [Entitic mass] 30.7 pg 27.0-32.0 [facility] Mean corpuscular hemoglobin concentration (MCHC) determinationOrdered By: Jese Velez on 07-23-2024 MCHC (RBC) [Mass/Vol] 34.7 g/dL 32-36 [facility] Mean platelet volume determi nationOrdered By: Jese Velez on 07-23-2024 Platelet mean volume (Bld) [Entitic vol] 9.5 fL 6.2-12.0 [facility] Monocyte percentageOrdered B y: Jese Velez on 07-23-2024 Monocytes/100 WBC (Bld) 6.4 % 0-10 [facility] Neutrophil percentageOrdered By: Jese Velez on 07-23-2024 Neutrophils/100 WBC (Bld) 67.3 % 47-70 [facility] Nucleated red blood cell per centageOrdered By: Jese Velez on 07-23-2024 Nucleated RBC/100 WBC (Bld) [Ratio] 0 % 0-5 [facility] Platelet countOrdered By: Thang Velez on 07-23-2024 Platelets (Bld) [#/Vol] 253 10*3/uL 150-450 [facility] Potassium measurementOrdered By: Jese Velez on 07-23-2024 Potassium [Moles/Vol] 3.7 mmol/L 3.5-5.1 [facility] RBC Auto (Bld) [#/Vol]Ordere d By: Jese Velez on 07-23-2024 RBC (Bld) [#/Vol] 5.31 10*6/uL 4.6-6.2 [facility] Serum anion gap measurementO rdered By: Jese Velez on 07-23-2024 Anion gap [Moles/Vol] 6 mmol/L 5-15 [facility] Serum globulin measurementOr dered By: Jese Velez on 07-23-2024 Globulin (S) [Mass/Vol] 4.1 g/dL 2.2-4.2 [facility] Serum or plasma alanine recinos otransferase (ALT) measurementOrdered By: Jese Velez on 07-23-2024 ALT [Catalytic activity/Vol] 115 U/L High 16-61 [facility] Serum or plasma albumin summer urement (mass/volume)Ordered By: Jese Velez on 07-23-2024 Albumin [Mass/Vol] 3.8 g/dL 3.2-5.0 [facility] Serum or plasma alkaline nirav sphatase measurementOrdered By: Jese Velez on 07-23-2024 ALP [Catalytic activity/Vol] 135 U/L High 45-117 [facility] Serum or plasma calcium summer urement (mass/volume)Ordered By: Jese Velez on 07-23-2024 Calcium [Mass/Vol] 9.6 mg/dL 8.5-10.1 [facility] Serum or plasma creatinine m easurement (mass/volume)Ordered By: Jese Velez on 07-23-2024 Creatinine [Mass/Vol] 1.33 mg/dL High 0.70-1.30 [facility] Comment on above: The validity of the calculated GFR & GFRAA in patients over 70 years has not been determined. Clinical correlation is essential. Serum or plasma urea nitroge n measurement (mass/volume)Ordered By: Jese Velez on 07-23-2024 Urea nitrogen [Mass/Vol] 13 mg/dL 7-18 [facility] Sodium levelOrdered By: Jese Velez on 07-23-2024 Sodium [Moles/Vol] 141 mmol/L 136-145 [facility] Total proteinOrdered By: Nerissa Velez on 07-23-2024 Protein [Mass/Vol] 7.9 g/dL 6.4-8.2 [facility] White blood cell (WBC) count Ordered By: Jese Velez on 07-23-2024 WBC (Bld) [#/Vol] 7.8 10*3/uL 4.4-11.0 [facility] MRCP Abdomen without Contras ton 07-01-2024 MRCP Abdomen without Contrast Normal [facility] Internal Medicine Office Vis iton 06-09-2024 Internal Medicine Office Visit Normal [facility] Knee 3 Viewson 06-09-2024 Knee 3 Views Normal [facility] Angiotensin Convert Enzymeon 06-08-2024 ANGIOT-CONV.ENZ 74 U/L Normal 14-82 [facility] Comment on above: Order Comment: N Result Comment: Perf ormed at: [facility] [address] [id number] Director: Popeye Joseph PhD, Phone: [phone] Performed By: #### L 3200.0500, L3100.6900, L3400.8000, L3477.0713 ####[facility] [address] [place], [address] HUGO + Protein Elect, Serumon 06-08-2024 Albumin [Mass/Vol] 3.6 g/dL Normal 2.9-4.4 [facility] Comment on above: Order Comment: N Performed By: #### L 3200.0500, L3100.6900, L3400.8000, [id number] ####[facility] [address] [place], [address] Albumin/Globulin [Mass ratio] 1.1 {ratio} Normal 0.7-1.7 [facility] Comment on above: Order Comment: N Performed By: #### L 3200.0500, L3100.6900, L3400.8000, L3100.3425 ####[facility] [address] [place], [address] EIYLA-2-HSBN 0.3 g/dL Normal 0.0-0.4 [facility] Comment on above: Order Comment: N Performed By: #### L 3200.0500, L3100.6900, L3400.8000, L3100.3425 ####[facility] [address] [place], [address] MMVVY-6-EZWA 0.8 g/dL Normal 0.4-1.0 [facility] Comment on above: Order Comment: N Performed By: #### L 3200.0500, L3100.6900, L3400.8000, L3100.3425 ####[facility] [address] [place], [address] BETA GLOBULIN 1.2 g/dL Normal 0.7-1.3 [facility] Comment on above: Order Comment: N Performed By: #### L 3200.0500, L3100.6900, L3400.8000, L3100.3425 ####[facility] [address] [place], [address] GAMMA GLOBULIN 1.3 g/dL Normal 0.4-1.8 [facility] Comment on above: Order Comment: N Performed By: #### L 3200.0500, L3100.6900, L3400.8000, L3100.3425 ####[facility] [address] [place], [address] Globulin (S) [Mass/Vol] 3.6 g/dL Normal 2.2-3.9 [facility] Comment on above: Order Comment: N Performed By: #### L 3200.0500, L3100.6900, L3400.8000, L3100.3425 ####[facility] [address] [place], [address] HUGO RESULT,S Comment Normal . [facility] Comment on above: Order Comment: N Result Comment: No m onoclonality detected. Performed By: #### L 3200.0500, L3100.6900, L3400.8000, L3100.3425 ####[facility] [address] [place], [address] IMMUNOGLOB A QN 527 mg/dL High 90-386 [facility] Comment on above: Order Comment: N Performed By: #### L 3200.0500, L3100.6900, L3400.8000, L3100.3425 ####[facility] [address] [place], [address] IMMUNOGLOB M QN 27 mg/dL Normal 20-172 [facility] Comment on above: Order Comment: N Performed By: #### L 3200.0500, L3100.6900, L3400.8000, L3100.3425 ####[facility] [address] [place], [address] M-Ron Not Observed Normal Not Observed [facility] Comment on above: Order Comment: N Performed By: #### L 3200.0500, L3100.6900, L3400.8000, L3100.3425 ####[facility] [address] [place], [address] NOTE: Comment Normal . [facility] Comment on above: Order Comment: N Result Comment: Prot ein electrophoresis scan will follow via computer,mail, or boom supervisor delivery. Performed By: #### L 3200.0500, L3100.6900, L3400.8000, L3100.3425 ####[facility] [address] [place], [address] Protein [Mass/Vol] 7.2 g/dL Normal 6.0-8.5 [facility] Comment on above: Order Comment: N Performed By: #### L 3200.0500, L3100.6900, L3400.8000, L3100.3425 ####[facility] [address] [place], [address] IgG Subclasseson 06-08-2024 IgG, SUBCLASS 1 633 mg/dL Normal 248-810 [facility] Comment on above: Order Comment: N Performed By: #### L 3200.0500, L3100.6900, L3400.8000, L3100.3425 ####[facility] [address] [place], [address] IgG, SUBCLASS 2 322 mg/dL Normal 130-555 [facility] Comment on above: Order Comment: N Performed By: #### L 3200.0500, L3100.6900, L3400.8000, L3100.3425 ####[facility] [address] [place], [address] IgG, SUBCLASS 3 82 mg/dL Normal 15-102 [facility] Comment on above: Order Comment: N Performed By: #### L 3200.0500, L3100.6900, L3400.8000, L3100.3425 ####[facility] [address] [place], [address] IgG, SUBCLASS 4 87 mg/dL Normal 2-96 [facility] Comment on above: Order Comment: N Performed By: #### L 3200.0500, L3100.6900, L3400.8000, L3100.3425 ####[facility] [address] [place], [address] IGG,QUANT 1183 mg/dL Normal 603-1613 [facility] Comment on above: Order Comment: N Performed By: #### L 3200.0500, L3100.6900, L3400.8000, L3100.3425 ####[facility] [address] [place], [address] Quantiferon TB-Gold+on 06-08 QFT MITOGEN YOGESH > 10.00 Normal . [facility] Comment on above: Order Comment: N Performed By: #### L 3200.0500, L3100.6900, L3400.8000, L3100.3425 ####[facility] [address] [place], [address] QFT NIL VALUE 0.04 IU/mL Normal . [facility] Comment on above: Order Comment: N Performed By: #### L 3200.0500, L3100.6900, L3400.8000, L3100.3425 ####[facility] [address] [place], [address] QFT TB GOLD+ Comment Normal . [facility] Comment on above: Order Comment: N [...] By: #### L 3200.0500, L3100.6900, L3400.8000, L3100.3425 ####[facility] [address] [place], [address] QFT TB POS CRIT Negative Normal Negative [facility] Comment on above: Order Comment: N [...] By: #### L 3200.0500, L3100.6900, L3400.8000, L3100.3425 ####[facility] [address] [place], [address] QFT TB1+ AG YOGESH 0.04 IU/mL Normal . [facility] Comment on above: Order Comment: N Performed By: #### L 3200.0500, L3100.6900, L3400.8000, L3100.3425 ####[facility] [address] [place], [address] QFT TB2+ AG YOGESH 0.06 IU/mL Normal . [facility] Comment on above: Order Comment: N Performed By: #### L 3200.0500, L3100.6900, L3400.8000, L3100.3425 ####[facility] [address] [place], [address] Abdomen without IV Contrasto n 05-28-2024 Abdomen without IV Contrast Normal [facility] Operative Reporton Operative Report Normal [facility] Trichrome (control)on 2023 Trichrome (control) Normal [facility] Comment on above: Performed By: #### P TRI ####[facility] [address] [place], [address] Partial Thromboplast Timeon 05-26-2024 aPTT Coag (Bld) [Time] 25.3 s Normal 24.1-36.2 [facility] Comment on above: Performed By: #### L 300.3900, L100.1900, L300.4310 ####[facility] [address] [place], [address] Platelet Counton 05-26-2024 Platelets (Bld) [#/Vol] 268 10*3/uL Normal 150-450 [facility] Comment on above: Performed By: #### L 300.3900, L100.1900, L300.4310 ####[facility] [address] [place], [address] Prothrombin Time w/INRon INR Coag (PPP) [Relative time] 0.9 {INR} Normal [facility] Comment on above: Performed By: #### L 300.3900, L100.1900, L300.4310 ####[facility] [address] [place], [address] PT Coag (PPP) [Time] 12.6 s Normal 11.7-14.9 [facility] Comment on above: Performed By: #### L 300.3900, L100.1900, L300.4310 ####[facility] [address] [place], [address] L2100.0000on 05-05-2024 ACCA 36 units Normal 0-90 [facility] Comment on above: Result Comment: Nega tive: <80 Equivocal: 80-90 Positive: >90 Performed By: #### L 2100.0000, L100.0100, L500.4050 ####[facility] [address] [place], [address] ALCA 24 units Normal 0-60 [facility] Comment on above: Result Comment: Nega tive:<55 Equivocal: 55-60 Positive: >60 Performed By: #### L 2100.0000, L100.0100, L500.4050 ####[facility] [address] [place], [address] AMCA 0 units Normal 0-100 [facility] Comment on above: Result Comment: Nega tive: <90 Equivocal: 90-100 Positive: >100 This test was developed and its performance characteristics determined by [employer]. It has not been cleared or approved by the Food and Drug Administration. The FDA has determined that such clearance or approval is not necessary. Performed By: #### L 2100.0000, L100.0100, L500.4050 ####[facility] [address] [place], [address] Atypical pANCA Positive Abnormal Negative [facility] Comment on above: Performed By: #### L 2100.0000, L100.0100, L500.4050 ####[facility] [address] [place], [address] COMMENT Comment Abnormal . [facility] Comment on above: Result Comment: Monetg estive of Ulcerative ColitisPerformed at: - [facility] [address] [id number] Director: Alison Ray MD, Phone: [phone] Performed By: #### L 2100.0000, L100.0100, L500.4050 ####[facility] [address] [place], [address] Makenna 16 units Normal 0-50 [facility] Comment on above: Result Comment: Nega tive: <45 Equivocal: 45-50 Positive: >50 Performed By: #### L 2100.0000, L100.0100, L500.4050 ####[facility] [address] [place], [address] CBC W/Diff, Automatedon 11-0 Absolute Lymph 1.61 X10 3/uL Normal 0.83-4.51 [facility] Comment on above: Performed By: #### L 2100.0000, L100.0100, L500.4050 ####[facility] [address] [place], [address] Absolute Neut 4.3 X10 3/uL Normal 2.0-7.7 [facility] Comment on above: Performed By: #### L 2100.0000, L100.0100, L500.4050 ####[facility] [address] [place], [address] Basophils/100 WBC (Bld) 0.7 % Normal 0-1 [facility] Comment on above: Performed By: #### L 2100.0000, L100.0100, L500.4050 ####[facility] [address] [place], [address] Eosinophils/100 WBC (Bld) 4.5 % Normal 0-5 [facility] Comment on above: Performed By: #### L 2100.0000, L100.0100, L500.4050 ####[facility] [address] [place], [address] Erythrocyte distribution width (RBC) [Ratio] 12.1 % Normal 11.6-14.6 [facility] Comment on above: Performed By: #### L 2100.0000, L100.0100, L500.4050 ####[facility] [address] [place], [address] Hematocrit (Bld) [Volume fraction] 46.9 % Normal 40-54 [facility] Comment on above: Performed By: #### L 2100.0000, L100.0100, L500.4050 ####[facility] [address] [place], [address] Hemoglobin (Bld) [Mass/Vol] 15.9 g/dL Normal 13.0-16.5 [facility] Comment on above: Performed By: #### L 2100.0000, L100.0100, L500.4050 ####[facility] [address] [place], [address] IG% 0.300 Normal 0.0-0.9 [facility] Comment on above: Result Comment: IG% - Immature Granulocytes (promyelocytes, myelocytes andmetamyelocytes) > 1% indicates that a LEFT SHIFT is Present. Performed By: #### L 2100.0000, L100.0100, L500.4050 ####[facility] [address] [place], [address] Lymphocytes/100 WBC (Bld) 23.6 % Normal 19-41 [facility] Comment on above: Performed By: #### L 2100.0000, L100.0100, L500.4050 ####[facility] [address] [place], [address] MCH (RBC) [Entitic mass] 30.1 pg Normal 27.0-32.0 [facility] Comment on above: Performed By: #### L 2100.0000, L100.0100, L500.4050 ####[facility] [address] [place], [address] MCHC (RBC) [Mass/Vol] 33.9 g/dL Normal 32-36 [facility] Comment on above: Performed By: #### L 2100.0000, L100.0100, L500.4050 ####[facility] [address] [place], [address] MCV (RBC) [Entitic vol] 88.8 fL Normal 80-94 [facility] Comment on above: Performed By: #### L 2100.0000, L100.0100, L500.4050 ####[facility] [address] [place], [address] Monocytes/100 WBC (Bld) 7.8 % Normal 0-10 [facility] Comment on above: Performed By: #### L 2100.0000, L100.0100, L500.4050 ####[facility] [address] [place], [address] Neutrophils/100 WBC (Bld) 63.1 % Normal 47-70 [facility] Comment on above: Performed By: #### L 2100.0000, L100.0100, L500.4050 ####[facility] [address] [place], [address] Nucleated RBC (Bld) [#/Vol] 0 10*3/uL Normal 0-5 [facility] Comment on above: Performed By: #### L 2100.0000, L100.0100, L500.4050 ####[facility] [address] [place], [address] Platelet mean volume (Bld) [Entitic vol] 9.1 fL Normal 6.2-12.0 [facility] Comment on above: Performed By: #### L 2100.0000, L100.0100, L500.4050 ####[facility] [address] [place], [address] Platelets (Bld) [#/Vol] 271 10*3/uL Normal 150-450 [facility] Comment on above: Performed By: #### L 2100.0000, L100.0100, L500.4050 ####[facility] [address] [place], [address] RBC (Bld) [#/Vol] 5.28 10*6/uL Normal 4.6-6.2 [facility] Comment on above: Performed By: #### L 2100.0000, L100.0100, L500.4050 ####[facility] [address] [place], [address] RDW SD 39.5 fl Normal 35.1-43.9 [facility] Comment on above: Performed By: #### L 2100.0000, L100.0100, L500.4050 ####[facility] [address] [place], [address] WBC (Bld) [#/Vol] 6.8 10*3/uL Normal 4.4-11.0 [facility] Comment on above: Performed By: #### L 2100.0000, L100.0100, L500.4050 ####[facility] [address] [place], [address] [facility] Albumin [Mass/Vol] 3.6 g/dL Normal 3.2-5.0 [facility] Comment on above: Performed By: #### L 2100.0000, L100.0100, L500.4050 ####[facility] [address] [place], [address] Albumin/Globulin [Mass ratio] 0.9 {ratio} Normal 0.9-2.4 [facility] Comment on above: Performed By: #### L 2100.0000, L100.0100, L500.4050 ####[facility] [address] [place], [address] ALK P 121 U/L High 45-117 [facility] Comment on above: Performed By: #### L 2100.0000, L100.0100, L500.4050 ####[facility] [address] [place], [address] ALT [Catalytic activity/Vol] 125 U/L High 16-61 [facility] Comment on above: Performed By: #### L 2100.0000, L100.0100, L500.4050 ####[facility] [address] [place], [address] AST [Catalytic activity/Vol] 50 U/L High 15-37 [facility] Comment on above: Performed By: #### L 2100.0000, L100.0100, L500.4050 ####[facility] [address] [place], [address] Bilirubin [Mass/Vol] 0.70 mg/dL Normal 0.20-1.00 [facility] Comment on above: Result Comment: For patients on eltrombopag therapy, use of Dimension Dewar TBIL is not recommended. Performed By: #### L 2100.0000, L100.0100, L500.4050 ####[facility] [address] [place], [address] BUN/CRE 12.8 RATIO Normal 10-20 [facility] Comment on above: Performed By: #### L 2100.0000, L100.0100, L500.4050 ####[facility] [address] [place], [address] CA,Total 9.3 mg/dL Normal 8.5-10.1 [facility] Comment on above: Performed By: #### L 2100.0000, L100.0100, L500.4050 ####[facility] [address] [place], [address] Chloride [Moles/Vol] 110 mmol/L High 98-107 [facility] Comment on above: Performed By: #### L 2100.0000, L100.0100, L500.4050 ####[facility] [address] [place], [address] CO2 [Moles/Vol] 26.0 mmol/L Normal 21.0-32.0 [facility] Comment on above: Performed By: #### L 2100.0000, L100.0100, L500.4050 ####[facility] [address] [place], [address] Creatinine [Mass/Vol] 1.17 mg/dL Normal 0.70-1.30 [facility] Comment on above: Result Comment: The validity of the calculated GFR GFRAA in patients over70 years has not been determined. Clinical correlation isessential. Performed By: #### L 2100.0000, L100.0100, L500.4050 ####[facility] [address] [place], [address] EST GFR - AA 93 mL/min Normal >60 [facility] Comment on above: Result Comment: Afri can Japanese GFR Calc Performed By: #### L 2100.0000, L100.0100, L500.4050 ####[facility] [address] [place], [address] GAP 5 Normal 5-15 [facility] Comment on above: Performed By: #### L 2100.0000, L100.0100, L500.4050 ####[facility] [address] [place], [address] GFR/1.73 sq M.predicted among non-blacks MDRD (S/P/Bld) [Vol rate/Area] 77 mL/min/{1.73_m2} Normal >60 [facility] Comment on above: Result Comment: Non- GFR Calc Performed By: #### L 2100.0000, L100.0100, L500.4050 ####[facility] [address] [place], [address] Globulin (S) [Mass/Vol] 3.8 g/dL Normal 2.2-4.2 [facility] Comment on above: Performed By: #### L 2100.0000, L100.0100, L500.4050 ####[facility] [address] [place], [address] Glucose [Mass/Vol] 109 mg/dL High 74-106 [facility] Comment on above: Result Comment: Fast ing Glucose result from 100 to 125 mg/dLsuggests IMPAIRED HOMEOSTASIS per A.D.A. criteria. Performed By: #### L 2100.0000, L100.0100, L500.4050 ####[facility] [address] [place], [address] Potassium [Moles/Vol] 4.2 mmol/L Normal 3.5-5.1 [facility] Comment on above: Performed By: #### L 2100.0000, L100.0100, L500.4050 ####[facility] [address] [place], [address] Sodium [Moles/Vol] 140 mmol/L Normal 136-145 [facility] Comment on above: Performed By: #### L 2100.0000, L100.0100, L500.4050 ####[facility] [address] [place], [address] T PROT 7.4 g/dL Normal 6.4-8.2 [facility] Comment on above: Performed By: #### L 2100.0000, L100.0100, L500.4050 ####[facility] [address] [place], [address] Urea nitrogen [Mass/Vol] 15 mg/dL Normal 7-18 [facility] Comment on above: Performed By: #### L 2100.0000, L100.0100, L500.4050 ####[facility] [address] [place], [address] Gastroenterology Visit Repor ton 04-30-2024 Gastroenterology Visit Report Normal [facility] Protein+Creatinine Ratio,Uri neon 04-29-2024 PROT:CRE RATIO 74 mg/g CRE Normal 0-200 [facility] Comment on above: Performed By: #### L 501.0900 ####[facility] [address] [place], [address] Protein (U) [Mass/Vol] 21.6 mg/dL High <11.9 [facility] Comment on above: Performed By: #### L 501.0900 ####[facility] [address] [place], [address] UR CREAT 291.00 mg/dL Normal NO RANGE EST. [facility] Comment on above: Performed By: #### L 501.0900 ####[facility] [address] [place], [address] Enterography Abd/Kurt 04-14 Enterography Abd/Pel Normal [facility] Internal Medicine Office Vis iton 03-24-2024 Internal Medicine Office Visit Normal [facility] Colonoscopy Reporton 024 Colonoscopy Report Normal [facility] MR/POSTOP.ANEon 03-09-2024 MR/POSTOP.ANE Normal [facility] MR/KBQYEVQR6da 03-09-2024 MR/POSTOPAN2 Normal [facility] Surgery Specimen Level Viky 03-09-2024 Surgery Specimen Level IV Normal [facility] Comment on above: Performed By: #### P SUIV ####[facility] [address] [place], [address] Surgery Visit Reporton 03-02 Surgery Visit Report Normal [facility] CBC W/Diff, Automatedon 01-29 Absolute Lymph 1.21 X10 3/uL Normal 0.83-4.51 [facility] Comment on above: Performed By: #### L 100.0100, L500.4050 ####[facility] [address] [place], [address] Absolute Neut 14.0 X10 3/uL High 2.0-7.7 [facility] Comment on above: Performed By: #### L 100.0100, L500.4050 ####[facility] [address] [place], [address] Basophils/100 WBC (Bld) 0.1 % Normal 0-1 [facility] Comment on above: Performed By: #### L 100.0100, L500.4050 ####[facility] [address] [place], [address] Eosinophils/100 WBC (Bld) 0.0 % Normal 0-5 [facility] Comment on above: Performed By: #### L 100.0100, L500.4050 ####[facility] [address] [place], [address] Erythrocyte distribution width (RBC) [Ratio] 12.1 % Normal 11.6-14.6 [facility] Comment on above: Performed By: #### L 100.0100, L500.4050 ####[facility] [address] [place], [address] Hematocrit (Bld) [Volume fraction] 46.9 % Normal 40-54 [facility] Comment on above: Performed By: #### L 100.0100, L500.4050 ####[facility] [address] [place], [address] Hemoglobin (Bld) [Mass/Vol] 16.0 g/dL Normal 13.0-16.5 [facility] Comment on above: Performed By: #### L 100.0100, L500.4050 ####[facility] [address] [place], [address] IG% 0.500 Normal 0.0-0.9 [facility] Comment on above: Result Comment: IG% - Immature Granulocytes (promyelocytes, myelocytes andmetamyelocytes) > 1% indicates that a LEFT SHIFT is Present. Performed By: #### L 100.0100, L500.4050 ####[facility] [address] [place], [address] Lymphocytes/100 WBC (Bld) 7.6 % Low 19-41 [facility] Comment on above: Performed By: #### L 100.0100, L500.4050 ####[facility] [address] [place], [address] MCH (RBC) [Entitic mass] 30.7 pg Normal 27.0-32.0 [facility] Comment on above: Performed By: #### L 100.0100, L500.4050 ####[facility] [address] [place], [address] MCHC (RBC) [Mass/Vol] 34.1 g/dL Normal 32-36 [facility] Comment on above: Performed By: #### L 100.0100, L500.4050 ####[facility] [address] [place], [address] MCV (RBC) [Entitic vol] 89.8 fL Normal 80-94 [facility] Comment on above: Performed By: #### L 100.0100, L500.4050 ####[facility] [address] [place], [address] Monocytes/100 WBC (Bld) 3.5 % Normal 0-10 [facility] Comment on above: Performed By: #### L 100.0100, L500.4050 ####[facility] [address] [place], [address] Neutrophils/100 WBC (Bld) 88.3 % High 47-70 [facility] Comment on above: Performed By: #### L 100.0100, L500.4050 ####[facility] [address] [place], [address] Nucleated RBC (Bld) [#/Vol] 0 10*3/uL Normal 0-5 [facility] Comment on above: Performed By: #### L 100.0100, L500.4050 ####[facility] [address] [place], [address] Platelet mean volume (Bld) [Entitic vol] 9.5 fL Normal 6.2-12.0 [facility] Comment on above: Performed By: #### L 100.0100, L500.4050 ####[facility] [address] [place], [address] Platelets (Bld) [#/Vol] 276 10*3/uL Normal 150-450 [facility] Comment on above: Performed By: #### L 100.0100, L500.4050 ####[facility] [address] [place], [address] RBC (Bld) [#/Vol] 5.22 10*6/uL Normal 4.6-6.2 [facility] Comment on above: Performed By: #### L 100.0100, L500.4050 ####[facility] [address] [place], [address] RDW SD 39.8 fl Normal 35.1-43.9 [facility] Comment on above: Performed By: #### L 100.0100, L500.4050 ####[facility] [address] [place], [address] WBC (Bld) [#/Vol] 15.8 10*3/uL High 4.4-11.0 [facility] Comment on above: Performed By: #### L 100.0100, L500.4050 ####[facility] [address] [place], [address] Comprehensive Metabolic Prof ilon 02-18-2024 Albumin [Mass/Vol] 3.5 g/dL Normal 3.2-5.0 [facility] Comment on above: Performed By: #### L 100.0100, L500.4050 ####[facility] [address] [place], [address] Albumin/Globulin [Mass ratio] 0.8 {ratio} Low 0.9-2.4 [facility] Comment on above: Performed By: #### L 100.0100, L500.4050 ####[facility] [address] [place], [address] ALK P 120 U/L High 45-117 [facility] Comment on above: Performed By: #### L 100.0100, L500.4050 ####[facility] [address] [place], [address] ALT [Catalytic activity/Vol] 130 U/L High 16-61 [facility] Comment on above: Performed By: #### L 100.0100, L500.4050 ####[facility] [address] [place], [address] AST [Catalytic activity/Vol] 55 U/L High 15-37 [facility] Comment on above: Performed By: #### L 100.0100, L500.4050 ####[facility] [address] [place], [address] Bilirubin [Mass/Vol] 0.60 mg/dL Normal 0.20-1.00 [facility] Comment on above: Result Comment: For patients on eltrombopag therapy, use of Dimension Dewar TBIL is not recommended. Performed By: #### L 100.0100, L500.4050 ####[facility] [address] [place], [address] BUN/CRE 11.3 RATIO Normal 10-20 [facility] Comment on above: Performed By: #### L 100.0100, L500.4050 ####[facility] [address] [place], [address] CA,Total 9.9 mg/dL Normal 8.5-10.1 [facility] Comment on above: Performed By: #### L 100.0100, L500.4050 ####[facility] [address] [place], [address] Chloride [Moles/Vol] 106 mmol/L Normal 98-107 [facility] Comment on above: Performed By: #### L 100.0100, L500.4050 ####[facility] [address] [place], [address] CO2 [Moles/Vol] 26.0 mmol/L Normal 21.0-32.0 [facility] Comment on above: Performed By: #### L 100.0100, L500.4050 ####[facility] [address] [place], [address] Creatinine [Mass/Vol] 1.06 mg/dL Normal 0.70-1.30 [facility] Comment on above: Result Comment: The validity of the calculated GFR GFRAA in patients over70 years has not been determined. Clinical correlation isessential. Performed By: #### L 100.0100, L500.4050 ####[facility] [address] [place], [address] ECRCL 130.25 ml/min Normal [facility] Comment on above: Performed By: #### L 100.0100, L500.4050 ####[facility] [address] [place], [address] EST GFR - AA 105 mL/min Normal >60 [facility] Comment on above: Result Comment: Afri can Japanese GFR Calc Performed By: #### L 100.0100, L500.4050 ####[facility] [address] [place], [address] GAP 5 Normal 5-15 [facility] Comment on above: Performed By: #### L 100.0100, L500.4050 ####[facility] [address] [place], [address] GFR/1.73 sq M.predicted among non-blacks MDRD (S/P/Bld) [Vol rate/Area] 87 mL/min/{1.73_m2} Normal >60 [facility] Comment on above: Result Comment: Non- GFR Calc Performed By: #### L 100.0100, L500.4050 ####[facility] [address] [place], [address] Globulin (S) [Mass/Vol] 4.3 g/dL High 2.2-4.2 [facility] Comment on above: Performed By: #### L 100.0100, L500.4050 ####[facility] [address] [place], [address] Glucose [Mass/Vol] 135 mg/dL High 74-106 [facility] Comment on above: Result Comment: Fast ing Glucose result greater than or equal to 126 mg/dLsuggests DIABETES MELLITUS per A.D.A. criteria. Performed By: #### L 100.0100, L500.4050 ####[facility] [address] [place], [address] Potassium [Moles/Vol] 4.1 mmol/L Normal 3.5-5.1 [facility] Comment on above: Performed By: #### L 100.0100, L500.4050 ####[facility] [address] [place], [address] Sodium [Moles/Vol] 137 mmol/L Normal 136-145 [facility] Comment on above: Performed By: #### L 100.0100, L500.4050 ####[facility] [address] [place], [address] T PROT 7.8 g/dL Normal 6.4-8.2 [facility] Comment on above: Performed By: #### L 100.0100, L500.4050 ####[facility] [address] [place], [address] Urea nitrogen [Mass/Vol] 12 mg/dL Normal 7-18 [facility] Comment on above: Performed By: #### L 100.0100, L500.4050 ####[facility] [address] [place], [address] Discharge Instructionon 01-29 Discharge Instruction Normal [facility] 12 Lead EKGon 02-17-2024 12 Lead EKG Normal [facility] Abdomen/Pelvis W IV Cont ONL Yon 02-17-2024 Abdomen/Pelvis W IV Cont ONLY Normal [facility] CBC W/Diff, Automatedon 01-29 Absolute Lymph 1.92 X10 3/uL Normal 0.83-4.51 [facility] Comment on above: Performed By: #### L 500.4050, L501.2450, L100.0100 ####[facility] [address] [place], [address] Absolute Neut 6.6 X10 3/uL Normal 2.0-7.7 [facility] Comment on above: Performed By: #### L 500.4050, L501.2450, L100.0100 ####[facility] [address] [place], [address] Basophils/100 WBC (Bld) 0.5 % Normal 0-1 [facility] Comment on above: Performed By: #### L 500.4050, L501.2450, L100.0100 ####[facility] [address] [place], [address] Eosinophils/100 WBC (Bld) 3.1 % Normal 0-5 [facility] Comment on above: Performed By: #### L 500.4050, L501.2450, L100.0100 ####[facility] [address] [place], [address] Erythrocyte distribution width (RBC) [Ratio] 12.1 % Normal 11.6-14.6 [facility] Comment on above: Performed By: #### L 500.4050, L501.2450, L100.0100 ####[facility] [address] [place], [address] Hematocrit (Bld) [Volume fraction] 46.8 % Normal 40-54 [facility] Comment on above: Performed By: #### L 500.4050, L501.2450, L100.0100 ####[facility] [address] [place], [address] Hemoglobin (Bld) [Mass/Vol] 16.5 g/dL Normal 13.0-16.5 [facility] Comment on above: Performed By: #### L 500.4050, L501.2450, L100.0100 ####[facility] [address] [place], [address] IG% 0.300 Normal 0.0-0.9 [facility] Comment on above: Result Comment: IG% - Immature Granulocytes (promyelocytes, myelocytes andmetamyelocytes) > 1% indicates that a LEFT SHIFT is Present. Performed By: #### L 500.4050, L501.2450, L100.0100 ####[facility] [address] [place], [address] Lymphocytes/100 WBC (Bld) 20.2 % Normal 19-41 [facility] Comment on above: Performed By: #### L 500.4050, L501.2450, L100.0100 ####[facility] [address] [place], [address] MCH (RBC) [Entitic mass] 31.3 pg Normal 27.0-32.0 [facility] Comment on above: Performed By: #### L 500.4050, L501.2450, L100.0100 ####[facility] [address] [place], [address] MCHC (RBC) [Mass/Vol] 35.3 g/dL Normal 32-36 [facility] Comment on above: Performed By: #### L 500.4050, L501.2450, L100.0100 ####[facility] [address] [place], [address] MCV (RBC) [Entitic vol] 88.8 fL Normal 80-94 [facility] Comment on above: Performed By: #### L 500.4050, L501.2450, L100.0100 ####[facility] [address] [place], [address] Monocytes/100 WBC (Bld) 6.9 % Normal 0-10 [facility] Comment on above: Performed By: #### L 500.4050, L501.2450, L100.0100 ####[facility] [address] [place], [address] Neutrophils/100 WBC (Bld) 69.0 % Normal 47-70 [facility] Comment on above: Performed By: #### L 500.4050, L501.2450, L100.0100 ####[facility] [address] [place], [address] Nucleated RBC (Bld) [#/Vol] 0 10*3/uL Normal 0-5 [facility] Comment on above: Performed By: #### L 500.4050, L501.2450, L100.0100 ####[facility] [address] [place], [address] Platelet mean volume (Bld) [Entitic vol] 9.5 fL Normal 6.2-12.0 [facility] Comment on above: Performed By: #### L 500.4050, L501.2450, L100.0100 ####[facility] [address] [place], [address] Platelets (Bld) [#/Vol] 273 10*3/uL Normal 150-450 [facility] Comment on above: Performed By: #### L 500.4050, L501.2450, L100.0100 ####[facility] [address] [place], [address] RBC (Bld) [#/Vol] 5.27 10*6/uL Normal 4.6-6.2 [facility] Comment on above: Performed By: #### L 500.4050, L501.2450, L100.0100 ####[facility] [address] [place], [address] RDW SD 39.5 fl Normal 35.1-43.9 [facility] Comment on above: Performed By: #### L 500.4050, L501.2450, L100.0100 ####[facility] [address] [place], [address] WBC (Bld) [#/Vol] 9.5 10*3/uL Normal 4.4-11.0 [facility] Comment on above: Performed By: #### L 500.4050, L501.2450, L100.0100 ####[facility] [address] [place], [address] Cholangiogram/ O R,Initialon 02-17-2024 Cholangiogram/ O R,Initial Normal [facility] Comprehensive Metabolic Prof ilon 02-17-2024 Albumin [Mass/Vol] 3.7 g/dL Normal 3.2-5.0 [facility] Comment on above: Performed By: #### L 500.4050, L501.2450, L100.0100 ####[facility] [address] [place], [address] Albumin/Globulin [Mass ratio] 0.9 {ratio} Normal 0.9-2.4 [facility] Comment on above: Performed By: #### L 500.4050, L501.2450, L100.0100 ####[facility] [address] [place], [address] ALK P 128 U/L High 45-117 [facility] Comment on above: Performed By: #### L 500.4050, L501.2450, L100.0100 ####[facility] [address] [place], [address] ALT [Catalytic activity/Vol] 129 U/L High 16-61 [facility] Comment on above: Performed By: #### L 500.4050, L501.2450, L100.0100 ####[facility] [address] [place], [address] AST [Catalytic activity/Vol] 49 U/L High 15-37 [facility] Comment on above: Performed By: #### L 500.4050, L501.2450, L100.0100 ####[facility] [address] [place], [address] Bilirubin [Mass/Vol] 0.50 mg/dL Normal 0.20-1.00 [facility] Comment on above: Result Comment: For patients on eltrombopag therapy, use of Dimension Dewar TBIL is not recommended. Performed By: #### L 500.4050, L501.2450, L100.0100 ####[facility] [address] [place], [address] BUN/CRE 9.8 RATIO Low 10-20 [facility] Comment on above: Performed By: #### L 500.4050, L501.2450, L100.0100 ####[facility] [address] [place], [address] CA,Total 9.6 mg/dL Normal 8.5-10.1 [facility] Comment on above: Performed By: #### L 500.4050, L501.2450, L100.0100 ####[facility] [address] [place], [address] Chloride [Moles/Vol] 107 mmol/L Normal 98-107 [facility] Comment on above: Performed By: #### L 500.4050, L501.2450, L100.0100 ####[facility] [address] [place], [address] CO2 [Moles/Vol] 26.0 mmol/L Normal 21.0-32.0 [facility] Comment on above: Performed By: #### L 500.4050, L501.2450, L100.0100 ####[facility] [address] [place], [address] Creatinine [Mass/Vol] 1.23 mg/dL Normal 0.70-1.30 [facility] Comment on above: Result Comment: The validity of the calculated GFR GFRAA in patients over70 years has not been determined. Clinical correlation isessential. Performed By: #### L 500.4050, L501.2450, L100.0100 ####[facility] [address] [place], [address] ECRCL 112.45 ml/min Normal [facility] Comment on above: Performed By: #### L 500.4050, L501.2450, L100.0100 ####[facility] [address] [place], [address] EST GFR - AA 88 mL/min Normal >60 [facility] Comment on above: Result Comment: Afri can Japanese GFR Calc Performed By: #### L 500.4050, L501.2450, L100.0100 ####[facility] [address] [place], [address] GAP 6 Normal 5-15 [facility] Comment on above: Performed By: #### L 500.4050, L501.2450, L100.0100 ####[facility] [address] [place], [address] GFR/1.73 sq M.predicted among non-blacks MDRD (S/P/Bld) [Vol rate/Area] 73 mL/min/{1.73_m2} Normal >60 [facility] Comment on above: Result Comment: Non- GFR Calc Performed By: #### L 500.4050, L501.2450, L100.0100 ####[facility] [address] [place], [address] Globulin (S) [Mass/Vol] 4.2 g/dL Normal 2.2-4.2 [facility] Comment on above: Performed By: #### L 500.4050, L501.2450, L100.0100 ####[facility] [address] [place], [address] Glucose [Mass/Vol] 110 mg/dL High 74-106 [facility] Comment on above: Result Comment: Fast ing Glucose result from 100 to 125 mg/dLsuggests IMPAIRED HOMEOSTASIS per A.D.A. criteria. Performed By: #### L 500.4050, L501.2450, L100.0100 ####[facility] [address] [place], [address] Potassium [Moles/Vol] 4.1 mmol/L Normal 3.5-5.1 [facility] Comment on above: Performed By: #### L 500.4050, L501.2450, L100.0100 ####[facility] [address] [place], [address] Sodium [Moles/Vol] 139 mmol/L Normal 136-145 [facility] Comment on above: Performed By: #### L 500.4050, L501.2450, L100.0100 ####[facility] [address] [place], [address] T PROT 7.9 g/dL Normal 6.4-8.2 [facility] Comment on above: Performed By: #### L 500.4050, L501.2450, L100.0100 ####[facility] [address] [place], [address] Urea nitrogen [Mass/Vol] 12 mg/dL Normal 7-18 [facility] Comment on above: Performed By: #### L 500.4050, L501.2450, L100.0100 ####[facility] [address] [place], [address] Emergency Department Summary on 02-17-2024 Emergency Department Summary Normal [facility] Gallbladderon 02-17-2024 Gallbladder Normal [facility] Lipaseon 02-17-2024 Lipase [Catalytic activity/Vol] 57 U/L Normal 13-75 [facility] Comment on above: Result Comment: Plea se note:LIPASE revised reference range effective 22.New Lipase methodology. Expected to produce lower valuesthan the previous assay method.NEW Reference Range: 13 - 75 U/L Performed By: #### L 500.4050, L501.2450, L100.0100 ####[facility] [address] [place], [address] MR/POSTOP.ANEon 02-17-2024 MR/POSTOP.ANE Normal [facility] MR/TENEHVCD9ko 02-17-2024 MR/POSTOPAN2 Normal [facility] Operative Reporton Operative Report Normal [facility] Surgery Specimen Level IIIon 02-17-2024 Surgery Specimen Level III Normal [facility] Comment on above: Performed By: #### P SUIII ####[facility] [address] [place], [address] Urinalysis, Completeon 02-16 WBC 0-5 SEEN Normal 0-5 [facility] Comment on above: Order Comment: COLLE CTOR TO SPECIFY Performed By: #### L 400.0001 ####[facility] [address] [place], [address] BACTERIA 0 SEEN Normal None Seen [facility] Comment on above: Order Comment: COLLE CTOR TO SPECIFY Performed By: #### L 400.0001 ####[facility] [address] [place], [address] EPI,SQUAMOUS 0 SEEN Normal 0-5 [facility] Comment on above: Order Comment: COLLE CTOR TO SPECIFY Performed By: #### L 400.0001 ####[facility] [address] [place], [address] Mucus Ql (Urine sed) 0 SEEN Normal [facility] Comment on above: Order Comment: COLLE CTOR TO SPECIFY Performed By: #### L 400.0001 ####[facility] [address] [place], [address] RBC 0 SEEN Normal 0-5 [facility] Comment on above: Order Comment: COLLE CTOR TO SPECIFY Performed By: #### L 400.0001 ####[facility] [address] [place], [address] CBC W/Diff, Automatedon 08- Absolute Lymph 2.84 X10 3/uL Normal 0.83-4.51 [facility] Comment on above: Performed By: #### L 500.4050, L501.2450, L100.0100 ####[facility] [address] [place], [address] Absolute Neut 6.0 X10 3/uL Normal 2.0-7.7 [facility] Comment on above: Performed By: #### L 500.4050, L501.2450, L100.0100 ####[facility] [address] [place], [address] Basophils/100 WBC (Bld) 0.6 % Normal 0-1 [facility] Comment on above: Performed By: #### L 500.4050, L501.2450, L100.0100 ####[facility] [address] [place], [address] Eosinophils/100 WBC (Bld) 4.2 % Normal 0-5 [facility] Comment on above: Performed By: #### L 500.4050, L501.2450, L100.0100 ####[facility] [address] [place], [address] Erythrocyte distribution width (RBC) [Ratio] 11.9 % Normal 11.6-14.6 [facility] Comment on above: Performed By: #### L 500.4050, L501.2450, L100.0100 ####[facility] [address] [place], [address] Hematocrit (Bld) [Volume fraction] 49.8 % Normal 40-54 [facility] Comment on above: Performed By: #### L 500.4050, L501.2450, L100.0100 ####[facility] [address] [place], [address] Hemoglobin (Bld) [Mass/Vol] 17.2 g/dL High 13.0-16.5 [facility] Comment on above: Performed By: #### L 500.4050, L501.2450, L100.0100 ####[facility] [address] [place], [address] IG% 0.300 Normal 0.0-0.9 [facility] Comment on above: Result Comment: IG% - Immature Granulocytes (promyelocytes, myelocytes andmetamyelocytes) > 1% indicates that a LEFT SHIFT is Present. Performed By: #### L 500.4050, L501.2450, L100.0100 ####[facility] [address] [place], [address] Lymphocytes/100 WBC (Bld) 28.1 % Normal 19-41 [facility] Comment on above: Performed By: #### L 500.4050, L501.2450, L100.0100 ####[facility] [address] [place], [address] MCH (RBC) [Entitic mass] 30.6 pg Normal 27.0-32.0 [facility] Comment on above: Performed By: #### L 500.4050, L501.2450, L100.0100 ####[facility] [address] [place], [address] MCHC (RBC) [Mass/Vol] 34.5 g/dL Normal 32-36 [facility] Comment on above: Performed By: #### L 500.4050, L501.2450, L100.0100 ####[facility] [address] [place], [address] MCV (RBC) [Entitic vol] 88.5 fL Normal 80-94 [facility] Comment on above: Performed By: #### L 500.4050, L501.2450, L100.0100 ####[facility] [address] [place], [address] Monocytes/100 WBC (Bld) 7.0 % Normal 0-10 [facility] Comment on above: Performed By: #### L 500.4050, L501.2450, L100.0100 ####[facility] [address] [place], [address] Neutrophils/100 WBC (Bld) 59.8 % Normal 47-70 [facility] Comment on above: Performed By: #### L 500.4050, L501.2450, L100.0100 ####[facility] [address] [place], [address] Nucleated RBC (Bld) [#/Vol] 0 10*3/uL Normal 0-5 [facility] Comment on above: Performed By: #### L 500.4050, L501.2450, L100.0100 ####[facility] [address] [place], [address] Platelet mean volume (Bld) [Entitic vol] 9.3 fL Normal 6.2-12.0 [facility] Comment on above: Performed By: #### L 500.4050, L501.2450, L100.0100 ####[facility] [address] [place], [address] Platelets (Bld) [#/Vol] 284 10*3/uL Normal 150-450 [facility] Comment on above: Performed By: #### L 500.4050, L501.2450, L100.0100 ####[facility] [address] [place], [address] RBC (Bld) [#/Vol] 5.63 10*6/uL Normal 4.6-6.2 [facility] Comment on above: Performed By: #### L 500.4050, L501.2450, L100.0100 ####[facility] [address] [place], [address] RDW SD 39.0 fl Normal 35.1-43.9 [facility] Comment on above: Performed By: #### L 500.4050, L501.2450, L100.0100 ####[facility] [address] [place], [address] WBC (Bld) [#/Vol] 10.1 10*3/uL Normal 4.4-11.0 [facility] Comment on above: Performed By: #### L 500.4050, L501.2450, L100.0100 ####[facility] [address] [place], [address] Comprehensive Metabolic Prof [facility] 02-15-2024 Albumin [Mass/Vol] 3.9 g/dL Normal 3.2-5.0 [facility] Comment on above: Performed By: #### L 500.4050, L501.2450, L100.0100 ####[facility] [address] [place], [address] Albumin/Globulin [Mass ratio] 0.9 {ratio} Normal 0.9-2.4 [facility] Comment on above: Performed By: #### L 500.4050, L501.2450, L100.0100 ####[facility] [address] [place], [address] ALK P 146 U/L High 45-117 [facility] Comment on above: Performed By: #### L 500.4050, L501.2450, L100.0100 ####[facility] [address] [place], [address] ALT [Catalytic activity/Vol] 147 U/L High 16-61 [facility] Comment on above: Performed By: #### L 500.4050, L501.2450, L100.0100 ####[facility] [address] [place], [address] AST [Catalytic activity/Vol] 58 U/L High 15-37 [facility] Comment on above: Performed By: #### L 500.4050, L501.2450, L100.0100 ####[facility] [address] [place], [address] Bilirubin [Mass/Vol] 0.30 mg/dL Normal 0.20-1.00 [facility] Comment on above: Result Comment: For patients on eltrombopag therapy, use of Dimension Dewar TBIL is not recommended. Performed By: #### L 500.4050, L501.2450, L100.0100 ####[facility] [address] [place], [address] BUN/CRE 9.1 RATIO Low 10-20 [facility] Comment on above: Performed By: #### L 500.4050, L501.2450, L100.0100 ####[facility] [address] [place], [address] CA,Total 9.8 mg/dL Normal 8.5-10.1 [facility] Comment on above: Performed By: #### L 500.4050, L501.2450, L100.0100 ####[facility] [address] [place], [address] Chloride [Moles/Vol] 109 mmol/L High 98-107 [facility] Comment on above: Performed By: #### L 500.4050, L501.2450, L100.0100 ####[facility] [address] [place], [address] CO2 [Moles/Vol] 28.0 mmol/L Normal 21.0-32.0 [facility] Comment on above: Performed By: #### L 500.4050, L501.2450, L100.0100 ####[facility] [address] [place], [address] Creatinine [Mass/Vol] 1.10 mg/dL Normal 0.70-1.30 [facility] Comment on above: Result Comment: The validity of the calculated GFR GFRAA in patients over70 years has not been determined. Clinical correlation isessential. Performed By: #### L 500.4050, L501.2450, L100.0100 ####[facility] [address] [place], [address] ECRCL 125.43 ml/min Normal [facility] Comment on above: Performed By: #### L 500.4050, L501.2450, L100.0100 ####[facility] [address] [place], [address] EST GFR - AA 100 mL/min Normal >60 [facility] Comment on above: Result Comment: Afri can Japanese GFR Calc Performed By: #### L 500.4050, L501.2450, L100.0100 ####[facility] [address] [place], [address] GAP 5 Normal 5-15 [facility] Comment on above: Performed By: #### L 500.4050, L501.2450, L100.0100 ####[facility] [address] [place], [address] GFR/1.73 sq M.predicted among non-blacks MDRD (S/P/Bld) [Vol rate/Area] 83 mL/min/{1.73_m2} Normal >60 [facility] Comment on above: Result Comment: Non- GFR Calc Performed By: #### L 500.4050, L501.2450, L100.0100 ####[facility] [address] [place], [address] Globulin (S) [Mass/Vol] 4.2 g/dL Normal 2.2-4.2 [facility] Comment on above: Performed By: #### L 500.4050, L501.2450, L100.0100 ####[facility] [address] [place], [address] Glucose [Mass/Vol] 99 mg/dL Normal 74-106 [facility] Comment on above: Performed By: #### L 500.4050, L501.2450, L100.0100 ####[facility] [address] [place], [address] Potassium [Moles/Vol] 3.7 mmol/L Normal 3.5-5.1 [facility] Comment on above: Performed By: #### L 500.4050, L501.2450, L100.0100 ####[facility] [address] [place], [address] Sodium [Moles/Vol] 142 mmol/L Normal 136-145 [facility] Comment on above: Performed By: #### L 500.4050, L501.2450, L100.0100 ####[facility] [address] [place], [address] T PROT 8.1 g/dL Normal 6.4-8.2 [facility] Comment on above: Performed By: #### L 500.4050, L501.2450, L100.0100 ####[facility] [address] [place], [address] Urea nitrogen [Mass/Vol] 10 mg/dL Normal 7-18 [facility] Comment on above: Performed By: #### L 500.4050, L501.2450, L100.0100 ####[facility] [address] [place], [address] Emergency Department Summary on 02-15-2024 Emergency Department Summary Normal [facility] Lipaseon 02-15-2024 Lipase [Catalytic activity/Vol] 58 U/L Normal 13-75 [facility] Comment on above: Result Comment: Plea se note:LIPASE revised reference range effective 22.New Lipase methodology. Expected to produce lower valuesthan the previous assay method.NEW Reference Range: 13 - 75 U/L Performed By: #### L 500.4050, L501.2450, L100.0100 ####[facility] [address] [place], [address] Urinalysis, Completeon 02-14 EPI,SQUAMOUS 0-5 SEEN Normal 0-5 [facility] Comment on above: Order Comment: CLEAN CATCH Performed By: #### L 400.0001 ####[facility] [address] [place], [address] WBC 0-5 SEEN Normal 0-5 [facility] Comment on above: Order Comment: CLEAN CATCH Performed By: #### L 400.0001 ####[facility] [address] [facility] [address] BACTERIA 0 SEEN Normal None Seen [facility] Comment on above: Order Comment: CLEAN CATCH Performed By: #### L 400.0001 ####[facility] [address] [place], [address] Mucus Ql (Urine sed) 0 SEEN Normal [facility] Comment on above: Order Comment: CLEAN CATCH Performed By: #### L 400.0001 ####[facility] [address] [place], [address] RBC 0 SEEN Normal 0-5 [facility] Comment on above: Order Comment: CLEAN CATCH Performed By: #### L 400.0001 ####[facility] [address] [facility] [address] Elastography Parenchyma/Orga non 02-12-2024 Elastography Parenchyma/Organ Normal [facility] L7000.0750on 02-10-2024 P ELASTASE,FECA > 800 Normal >200 [facility] Comment on above: Result Comment: Resu lt Units: ug Elast./g Severe Pancreatic Insufficiency: <100 Moderate Pancreatic Insufficiency: 100 - 200 Normal: >200Performed at: [facility] [id number] Director: Alison Ray MD, Phone: [phone] Performed By: #### M 100.0605, L7000.0750, L7000.0700 ####[facility] [address] [place], [place], [id number] Calprotectin, Stoolon [address] 191 ug/g Abnormal 0-120 [facility] Comment on above: Result Comment: Conc entration Interpretation Follow-Up< 5 - 50 ug/g Normal None>50 -120 ug/g Borderline Re-evaluate in 4-6 weeks >120 ug/g Abnormal Repeat as clinically indicatedPerformed at: [facility] [id number] Director: Alison Ray MD, Phone: [phone] Performed By: #### M 100.0605, L7000.0750, L7000.0700 ####[facility] [address] [place], [place], [address] EGD Reporton 02-03-2024 EGD Report Normal [facility] H Pylori (initial)on 024 H Pylori (initial) Normal [facility] Comment on above: Performed By: #### P H.PYLORI ####[facility] [address] [place], [place], [id number] Hemoglobin A1con 02-03-2024 HbA1c (Bld) [Mass fraction] 5.6 % Normal 3.8-5.6 [facility] Comment on above: Result Comment: Norm al < 5.7 % Prediabetic 5.7 - 6.4 % Diabetic >or= 6.5 % Please note range changes. Performed By: #### L [id number] ####[facility] [id number] [place], [place], [address] MR/POSTOP.ANEon 02-03-2024 MR/POSTOP.ANE Normal [facility] MR/[id number] 02-03-2024 MR/POSTOPAN2 Normal [facility] Special Stain Group Ion -0 Special Stain Group I Normal [facility] Comment on above: Performed By: #### P SSI ####[facility] [id number] [place], [place], [id number] Stool Lactoferrin/WBCon WBCST Normal Reference Ran ge = Negative Fecal WBC Lactoferrin A Positive: Fecal WBC Lactoferrin present A Normal [facility] Comment on above: Performed By: #### M [id number], [id number], [id number] ####[facility] [id number] [place], [place], [address] .Auto Diffon 01-04-2024 Basophil, Absolute 0.1 10 3/mcL Normal 0.0-0.2 [facility] ([place]) Comment on above: Performed By: #### G FR, LIP, CBC, ADIFF, CMP, CINDY SUMNER #### [address] [address] Basophils/100 WBC (Bld) 0.6 % Normal 0.0-2.5 [facility] ([place]) Comment on above: Performed By: #### G FR, LIP, CBC, ADIFF, BURAK ACHARYA MDW #### [address] [address] Eosinophil, Absolute 0.4 10 3/mcL Normal 0.0-0.4 [facility] ([place]) Comment on above: Performed By: #### G FR, LIP, CBC, ADIFF, CMP, CINDY SUMNER #### [address] [address] Eosinophils/100 WBC (Bld) 4.0 % Normal 0.0-7.0 [facility] ([place]) Comment on above: Performed By: #### G FR, LIP, CBC, ADIFF, CMP, CINDY SUMNER #### [address] [address] Lymphocyte, Absolute 2.4 10 3/mcL Normal 0.8-3.9 [facility] ([place]) Comment on above: Performed By: #### G FR, LIP, CBC, ADIFF, CMP, CINDY SUMNER #### [address] [address] Lymphocytes/100 WBC (Bld) 23.7 % Normal 10.0-50.0 [facility] ([place]) Comment on above: Performed By: #### G FR, LIP, CBC, ADIFF, CMP, CINDY SUMNER #### [address] [address] Monocyte, Absolute 0.8 10 3/mcL Normal 0.2-1.0 [facility] ([place] Comment on above: Performed By: #### G FR, LIP, CBC, ADIFF, CMP, CINDY SUMNER #### [address] [address] Monocytes/100 WBC (Bld) 7.6 % Normal 1.7-13.0 [facility] ([place]) Comment on above: Performed By: #### G FR, LIP, CBC, ADIFF, CMP, CINDY SUMNER #### [address] [address] Neutrophils/100 WBC (Bld) 64.1 % Normal 37.0-80.0 [facility] ([place]) Comment on above: Performed By: #### G FR, LIP, CBC, ADIFF, CMP, CINDY SUMNER #### [address] [address] .GFRon 01-04-2024 GFR Non- 67 ml/min/1.73sqm Normal [facility] ([place]) Comment on above: Result Comment: GFR Population [...] LIP, CBC, ADIFF, CMP, ANEU, MDW #### [address] [address] GFR 82 ml/min/1.73sqm Normal [facility] ([place]) Comment on above: Result Comment: GFR Population [...] LIP, CBC, ADIFF, CMP, ANEU, MDW #### [address] [address] .MDWon 01-04-2024 Monocyte Distribution Width 19.58 Normal 0.00-20.00 [facility] ([place]) Comment on above: Result Comment: For ED adult patients suspected of sepsis, MDW<=20.0 does not rule out sepsis or risk of sepsis Performed By: #### G FR, LIP, CBC, ADIFF, CMP, CINDY SUMNER #### [address] [address] .NEUABSon 01-04-2024 Neutrophil, Absolute 6.4 10 3/mcL High 2.9-6.2 [facility] ([place]) Comment on above: Performed By: #### G FR, LIP, CBC, ADIFF, CMP, CINDY SUMNER #### [place] [address] CBCon 01-04-2024 Erythrocyte distribution width (RBC) [Ratio] 13.2 % Normal 11.5-14.5 [facility] ([place]) Comment on above: Performed By: #### G FR, LIP, CBC, ADIFF, CMP, CINDY SUMNER #### [place] [address] Hematocrit (Bld) [Volume fraction] 49.3 % Normal 42.0-52.0 [facility] ([place]) Comment on above: Performed By: #### G FR, LIP, CBC, ADIFF, CMP, CINDY SUMNER #### [place] [address] Hgb 17.4 G/dL Normal 14.0-18.0 [facility] ([place]) Comment on above: Performed By: #### G FR, LIP, CBC, ADIFF, CMP, CINDY SUMNER #### [place] [address] MCH (RBC) [Entitic mass] 31.8 pg High 27.0-31.2 [facility] ([place]) Comment on above: Performed By: #### G FR, LIP, CBC, ADIFF, CMP, CINDY SUMNER #### [place] [address] MCHC 35.3 G/dL Normal 31.8-35.4 [facility] ([place]) Comment on above: Performed By: #### G FR, LIP, CBC, ADIFF, CMP, CINDY SUMNER #### [place] [address] [place], [place] [address] MCV (RBC) [Entitic vol] 90.0 fL Normal 80.0-94.0 [facility] ([place]) Comment on above: Performed By: #### G FR, LIP, CBC, ADIFF, CMP, CINDY SUMNER #### [address] [address] Platelet 247 10 3/mcL Normal 130-400 [facility] ([place]) Comment on above: Performed By: #### G FR, LIP, CBC, ADIFF, CMP, CINDY SUMNER #### [address] [address] Platelet mean volume (Bld) [Entitic vol] 7.5 fL Normal 7.4-10.4 [facility] ([place]) Comment on above: Performed By: #### G FR, LIP, CBC, ADIFF, CMP, CINDY SUMNER #### [address] [address] RBC 5.48 10 6/mcL Normal 4.04-6.13 [facility] ([place]) Comment on above: Performed By: #### G FR, LIP, CBC, ADIFF, CMP, CINDY SUMNER #### [address] [address] WBC 10.0 10 3/mcL Normal 4.6-10.8 [facility] ([place]) Comment on above: Performed By: #### G FR, LIP, CBC, ADIFF, CMP, CINDY SUMNER #### [address] [address] CMPon 01-04-2024 ALT [Catalytic activity/Vol] 198 U/L High 16-63 [facility] ([place]) Comment on above: Performed By: #### G FR, LIP, CBC, ADIFF, CMP, CINDY SUMNER #### [address] [address] AST [Catalytic activity/Vol] 63 U/L High 10-40 [facility] ([place]) Comment on above: Performed By: #### G FR, LIP, CBC, ADIFF, CMP, CINDY SUMNER #### [address] [address] Bili Total 0.5 mg/dL Normal 0.2-1.0 [facility] ([place]) Comment on above: Result Comment: Use of this assay is not recommended for patients undergoing treatment with eltrombopag due to the potential for falsely elevated results. Performed By: #### G FR, LIP, CBC, ADIFF, CMP, CINDY SUMNER #### [address] [address] Albumin Level 4.0 G/dL Normal 3.5-5.0 [facility] ([place]) Comment on above: Performed By: #### G FR, LIP, CBC, ADIFF, CMP, CINDY SUMNER #### [address] [address] Albumin/Globulin [Mass ratio] 1.1 {ratio} Normal 1.1-2.5 [facility] ([place]) Comment on above: Performed By: #### G FR, LIP, CBC, ADIFF, CMP, CINDY SUMNER #### [address] [address] ALP [Catalytic activity/Vol] 135 U/L Normal 40-135 [facility] ([place]) Comment on above: Performed By: #### G FR, LIP, CBC, ADIFF, CMP, CINDY SUMNER #### [address] [address] BUN/Creatinine Ratio 14 ratio Normal 7-27 [facility] ([place]) Comment on above: Performed By: #### G FR, LIP, CBC, ADIFF, CMP, CINDY SUMNER #### [address] [address] Calcium [Mass/Vol] 9.8 mg/dL Normal 8.4-10.2 [facility] ([place]) Comment on above: Performed By: #### G FR, LIP, CBC, ADIFF, CMP, CINDY SUMNER #### [address] [address] Chloride [Moles/Vol] 106 mmol/L Normal 98-107 [facility] ([place]) Comment on above: Performed By: #### G FR, LIP, CBC, ADIFF, CMP, CINDY SUMNER #### [address] [address] CO2 [Moles/Vol] 23 mmol/L Normal 22-29 [facility] ([place]) Comment on above: Performed By: #### G FR, LIP, CBC, ADIFF, CMP, CINDY SUMNER #### [address] [address] Creatinine [Mass/Vol] 1.25 mg/dL Normal 0.70-1.30 [facility] ([place]) Comment on above: Performed By: #### G FR, LIP, CBC, ADIFF, CMP, CINDY SUMNER #### [address] [address] Electrolyte Balance 13.0 mEq/L Normal 4.0-15.0 [facility] ([place]) Comment on above: Performed By: #### G FR, LIP, CBC, ADIFF, CMP, CINDY SUMNER #### [address] [address] Globulin 3.7 G/dL Normal [facility] ([place]) Comment on above: Performed By: #### G FR, LIP, CBC, ADIFF, CMP, CINDY SUMNER #### [address] [address] Glucose [Mass/Vol] 128 mg/dL High 70-105 [facility] ([place]) Comment on above: Performed By: #### G FR, LIP, CBC, ADIFF, CMP, CINDY SUMNER #### [address] [address] Potassium [Moles/Vol] 4.1 mmol/L Normal 3.5-5.1 [facility] ([place]) Comment on above: Performed By: #### G FR, LIP, CBC, ADIFF, CMP, BURAK, CINDY #### [address] [address] Sodium [Moles/Vol] 142 mmol/L Normal 136-145 [facility] ([place]) Comment on above: Performed By: #### G FR, LIP, CBC, ADIFF, MARCK, CINDY SUMNER #### [place] [address] [place], [place] [address] Total Protein 7.7 G/dL Normal 6.4-8.2 [facility] ([place]) Comment on above: Performed By: #### G FR, LIP, CBC, ADIFF, CMP, CINDY SUMNER #### [place] [address] [place], [place] [address] Urea nitrogen [Mass/Vol] 17 mg/dL Normal 7-18 [facility] ([place] Comment on above: Performed By: #### G FR, LIP, CBC, ADIFF, CMP, CINDY SUMNER #### [place] [address] [place], [place] [address] CT ABDOMEN/PELVIS W/O CONTRA STon 01-04-2024 CT [...] 01/04/2024 1:52:07 AM Ordering Provider: JENNIFFER [facility] ([place]) LABORATORYOrdered By: SYSTEM SYSTEM on 01-04-2024 Albumin [...] 01-04-2024 Lipase Level 66 U/L Normal 16-77 [facility] ([place]) Comment on above: Performed By: #### G FR, LIP, CBC, ADIFF, CMP, ANEU, MDW #### [address] [address] Absolute lymphocyte countOrd ered By: Neetu Espinoza on 10-15-2023 Lymphocytes Auto (Unsp spec) [#/Vol] 2.25 10*3/uL 0.83-4.51 [facility] Automated lymphocyte count a s percentage of total leukocytesOrdered By: Neetu Espinoza on 10-15-2023 Lymphocytes/100 WBC Auto (Unsp spec) 20.1 % 19-41 [facility] Basophil percentageOrdered B y: Neetu Espinoza on 10-15-2023 Basophil percentage 0-5 SEEN /hpf 0-5 [facility] Basophils/100 WBC (Bld) 0.7 % 0-1 [facility] Bilirubin [Mass/Vol] 0.40 mg/dL 0.20-1.00 [facility] Comment on above: For patients on eltr ombopag therapy, use of Dimension Dewar TBIL is not recommended. Chloride [Moles/Vol] 107 mmol/L 98-107 [facility] Eosinophils/100 WBC (Bld) 3.7 % 0-5 [facility] Glucose [Mass/Vol] 119 mg/dL 74-106 [facility] Comment on above: Fasting Glucose resu lt from 100 to 125 mg/dL suggests IMPAIRED HOMEOSTASIS per A.D.A. criteria. Hemoglobin (Bld) [Mass/Vol] 16.5 g/dL 13.0-16.5 [facility] Lactate [Moles/Vol] 0.9 mmol/L 0.4-2.0 [facility] Monocytes/100 WBC (Bld) 7.7 % 0-10 [facility] Neutrophils (Bld) [#/Vol] 7.6 10*3/uL 2.0-7.7 [facility] Neutrophils/100 WBC (Bld) 67.6 % 47-70 [facility] Potassium [Moles/Vol] 4.0 mmol/L 3.5-5.1 [facility] Comment on above: Slight Hemolysis, Re sult may be falsely increased. Protein [Mass/Vol] 8.2 g/dL 6.4-8.2 [facility] Sodium [Moles/Vol] 139 mmol/L 136-145 [facility] WBC (Bld) [#/Vol] 11.2 10*3/uL 4.4-11.0 [facility] Bilirubin Test strip Ql (U)O rdered By: Neetu Espinoza on 10-15-2023 Bilirubin Ql (U) Negative Negative [facility] Determination of erythrocyte mean corpuscular volume (MCV)Ordered By: Neetu Espinoza on 10-15-2023 MCV (RBC) [Entitic vol] 87.9 fL 80-94 [facility] Erythrocyte distribution wid th ratioOrdered By: Neetu Espinoza on 10-15-2023 Erythrocyte distribution width (RBC) [Ratio] 12.4 % 11.6-14.6 [facility] Erythrocyte distribution wid th standard deviationOrdered By: Neetu Espinoza on 10-15-2023 Erythrocyte distribution width (RBC) [Entitic vol] 39.7 fL 35.1-43.9 [facility] Hematocrit Auto (Bld) [Volum e fraction]Ordered By: Neetu Espinoza on 10-15-2023 Hematocrit (Bld) [Volume fraction] 48.0 % 40-54 [facility] Immature granulocytes/100 WB C Auto (Bld)Ordered By: Neetu Espinoza on 10-15-2023 Immature granulocytes/100 WBC (Bld) 0.200 % 0.0-0.9 [facility] Comment on above: IG% - Immature Granu locytes (promyelocytes, myelocytes and metamyelocytes) > 1% indicates that a LEFT SHIFT is Present. Ketones Test strip Ql (U)Ord ered By: Neetu Espinoza on 10-15-2023 Ketones Ql (U) 5 mg/dl Negative [facility] Laboratory - Chemistry and C hemistry - challengeOrdered By: Neetu Espinoza on 10-15-2023 Albumin/Globulin [Mass ratio] 1.0 {ratio} 0.9-2.4 [facility] ALP [Catalytic activity/Vol] 118 U/L 45-117 [facility] ALT [Catalytic activity/Vol] 202 U/L 16-61 [facility] CO2 [Moles/Vol] 25.0 mmol/L 21.0-32.0 [facility] Globulin (S) [Mass/Vol] 4.2 g/dL 2.2-4.2 [facility] Lipase [Catalytic activity/Vol] 54 U/L 13-75 [facility] Comment on above: Please note:LIPASE r evised reference range effective 22. New Lipase methodology. Expected to produce lower values than the previous assay method. NEW Reference Range: 13 - 75 U/L Urea nitrogen/Creatinine [Mass ratio] 11.0 mg/mg 10-20 [facility] Laboratory - Hematology and Cell countsOrdered By: Neetu Espinoza on 10-15-2023 MCH (RBC) [Entitic mass] 30.2 pg 27.0-32.0 [facility] MCHC (RBC) [Mass/Vol] 34.4 g/dL 32-36 [facility] Nucleated RBC/100 WBC (Bld) [Ratio] 0 % 0-5 [facility] Platelet mean volume (Bld) [Entitic vol] 9.4 fL 6.2-12.0 [facility] Platelets (Bld) [#/Vol] 276 10*3/uL 150-450 [facility] Mucus LM Ql (Urine sed)Order ed By: Neetu Espinoza on 10-15-2023 Mucus Ql (Urine sed) 0 SEEN /hpf [facility] Nitrite Test strip Ql (U)Ord ered By: Neetu Espinoza on 10-15-2023 Nitrite Ql (U) Negative Negative [facility] No Panel InformationOrdered By: Neetu Espinoza on 10-15-2023 Estimated Creatinine Clearance Calc 96.66 ml/min [facility] Estimated GFR (MDRD) Amer 73 mL/min >60 [facility] Comment on above: GFR Calc Estimated GFR (MDRD) Non-Af Amer 60 mL/min >60 [facility] Comment on above: Non- GFR Calc Urine RBC 0 SEEN /hpf 0-5 [facility] Protein Test strip Ql (U)Ord ered By: Neetu Espinoza on 10-15-2023 Protein Ql (U) 15 mg/dl Negative [facility] RBC Auto (Bld) [#/Vol]Ordere d By: Neetu Espinoza on 10-15-2023 RBC (Bld) [#/Vol] 5.46 10*6/uL 4.6-6.2 [facility] Serum or plasma calcium summer urement (mass/volume)Ordered By: Neetu Espinoza on 10-15-2023 Calcium [Mass/Vol] 9.4 mg/dL 8.5-10.1 [facility] Serum or plasma creatinine m easurement (mass/volume)Ordered By: Neetu Espinoza on 10-15-2023 Creatinine [Mass/Vol] 1.45 mg/dL 0.70-1.30 [facility] Comment on above: The validity of the calculated GFR & GFRAA in patients over 70 years has not been determined. Clinical correlation is essential. Serum or plasma urea nitroge n measurement (mass/volume)Ordered By: Neetu Espinoza on 10-15-2023 Urea nitrogen [Mass/Vol] 16 mg/dL 7-18 [facility] Squamous epithelial cells de tection in urine sediment by light microscopyOrdered By: Neetu Espinoza on 10-15-2023 Epithelial cells.squamous LM Ql (Urine sed) 0 SEEN /hpf 0-5 [facility] Thin prep Papanicolaou smear with manual screeningOrdered By: Neetu Espinoza on 10-15-2023 Thin prep Papanicolaou smear with manual screening 4.0 g/dL 3.2-5.0 [facility] Thin prep Papanicolaou smear with manual screening 76 U/L 15-37 [facility] Comment on above: Slight Hemolysis, Re sult may be falsely increased. Thin prep Papanicolaou smear with manual screening 7 5-15 [facility] Urine blood detectionOrdered By: Remus Olga on 10-15-2023 RBC Ql (U) Negative Negative [facility] Urine clarityOrdered By: Rem us Olga on 10-15-2023 Clarity (U) Clear Clear [facility] Urine color determinationOrd ered By: Remus Espinoza on 10-15-2023 Color (U) Yellow Yellow [facility] Urine glucose detectionOrder ed By: Neetu Espinoza on 10-15-2023 Glucose Ql (U) Normal mg/dl Normal [facility] Urine leukocyte esterase det ection by dipstickOrdered By: Neetu Espinoza on 10-15-2023 Leukocyte esterase Test strip Ql (U) 25 /ul Negative [facility] Urine pHOrdered By: Neetu Beckham gur on 10-15-2023 pH (U) 7.0 [pH] 5.0 - 8.0 [facility] Urine sediment bacteria coun t by microscopy (number/high power field)Ordered By: Neetu Espinoza on 10-15-2023 Bacteria LM.HPF (Urine sed) [#/Area] 1 /[HPF] None Seen [facility] Urine specific gravity measu rementOrdered By: Neetu Espinoza on 10-15-2023 Specific gravity (U) [Rel density] 1.015 1.002-1.03 0 [facility] Urine urobilinogen measureme ntOrdered By: Neetu Espinoza on 10-15-2023 Urobilinogen Ql (U) 1 mg/dl Normal [facility] Vital Signs Date Time Vital Sign Value Performing Clinician Facility 01-18-2025 13:13-0400 Body height 182.[address] Arun Gonzales DO Work Phone: [facility] 01-18-2025 13:13-0400 Body mass index (BMI) [Ratio] 33.2 kg/m2 Dr. Arun Gonzales DO Work Phone: [facility] 01-18-2025 13:13-0400 Body temperature 97.9 [degF] Dr. Arun Gonzales DO Work Phone: [facility] 01-18-2025 13:13-0400 Body weight 111.[address] Arun Gonzales DO Work Phone: [facility] 01-18-2025 13:13-0400 Diastolic blood pressure 86 mm[Hg] Dr. Arun Gonzales DO Work Phone: [facility] 01-18-2025 13:13-0400 Heart rate 106 /min Dr. Arun Gonzales DO Work Phone: [facility] 01-18-2025 13:13-0400 Respiratory rate 16 /min Dr. Arun Gonzales DO Work Phone: [facility] 01-18-2025 13:13-0400 SaO2% (BldA) [Mass fraction] 97 % Dr. Arun Gonzales DO Work Phone: [facility] 01-18-2025 13:13-0400 Systolic blood pressure 134 mm[Hg] Dr. Arun Gonzales DO Work Phone: [facility] 01-10-2025 19:51-0400 Body temperature 98.4 [degF] Dr. Arun Gonzales DO Work Phone: [facility] 01-10-2025 19:51-0400 Diastolic blood pressure 79 mm[Hg] Dr. Arun Gonzales DO Work Phone: [facility] 01-10-2025 19:51-0400 Heart rate 81 /min Dr. Arun Gonzales DO Work Phone: [facility] 01-10-2025 19:51-0400 Respiratory rate 16 /min Dr. Arun Gonzales DO Work Phone: [facility] 01-10-2025 19:51-0400 SaO2% (BldA) [Mass fraction] 100 % Dr. Arun Gonzales DO Work Phone: [facility] 01-10-2025 19:51-0400 Systolic blood pressure 128 mm[Hg] Dr. Arun Gonzales DO Work Phone: [facility] 01-10-2025 14:48-0400 Body height 182.[address] Arun Gonzales DO Work Phone: [facility] 01-10-2025 14:48-0400 Body mass index (BMI) [Ratio] 34.4 kg/m2 Dr. Arun Gonzales DO Work Phone: [facility] 01-10-2025 14:48-0400 Body weight 114.[address] Arun Gonzales DO Work Phone: [facility] 11-24-2024 11:11-0400 Body height 182.[address] Arun Gonzales DO Work Phone: [facility] 11-24-2024 11:11-0400 Body mass index (BMI) [Ratio] 33.7 kg/m2 Dr. Arun Gonzales DO Work Phone: [facility] 11-24-2024 11:11-0400 Body temperature 97.6 [degF] Dr. Arun Gonzales DO Work Phone: [facility] 11-24-2024 11:11-0400 Body weight 112.[address] Arun Gonzales DO Work Phone: [facility] 11-24-2024 11:11-0400 Diastolic blood pressure 80 mm[Hg] Dr. Arun Gonzales DO Work Phone: [facility] 11-24-2024 11:11-0400 Heart rate 102 /min Dr. Arun Gonzales DO Work Phone: [facility] 11-24-2024 11:11-0400 Respiratory rate 16 /min Dr. Arun Gonzales DO Work Phone: [facility] 11-24-2024 11:11-0400 SaO2% (BldA) [Mass fraction] 96 % Dr. Arun Gonzales DO Work Phone: [facility] 11-24-2024 11:11-0400 Systolic blood pressure 120 mm[Hg] Dr. Arun Gonzales DO Work Phone: [facility] 11-03-2024 11:36-0400 Body height 182.[address] Arun Gonzales DO Work Phone: [facility] 11-03-2024 11:36-0400 Body mass index (BMI) [Ratio] 33.3 kg/m2 Dr. Arun Gonzales DO Work Phone: [facility] 11-03-2024 11:36-0400 Body temperature 97.7 [degF] Dr. Arun Gonzales DO Work Phone: [facility] 11-03-2024 11:36-0400 Body weight 111.[address] Arun Gonzales DO Work Phone: [facility] 11-03-2024 11:36-0400 Diastolic blood pressure 100 mm[Hg] Dr. Arun Gonzales DO Work Phone: [facility] 11-03-2024 11:36-0400 Heart rate 106 /min Dr. Arun Gonzales DO Work Phone: [facility] 11-03-2024 11:36-0400 Respiratory rate 18 /min Dr. Arun Gonzales DO Work Phone: [facility] 11-03-2024 11:36-0400 SaO2% (BldA) [Mass fraction] 96 % Dr. Arun Gonzales DO Work Phone: [facility] 11-03-2024 11:36-0400 Systolic blood pressure 150 mm[Hg] Dr. Arun Gonzales DO Work Phone: [facility] 07-23-2024 18:12-0500 Body temperature 97.2 [degF] Dr. Arun Gonzales DO Work Phone: [facility] 07-23-2024 18:12-0500 Diastolic blood pressure 91 mm[Hg] Dr. Arun Gonzales DO Work Phone: [facility] 07-23-2024 18:12-0500 Heart rate 126 /min Dr. Arun Gonzales DO Work Phone: [facility] 07-23-2024 18:12-0500 Respiratory rate 20 /min Dr. Arun Gonzales DO Work Phone: [facility] 07-23-2024 18:12-0500 SaO2% (BldA) [Mass fraction] 98 % Dr. Aurn Gonzales DO Work Phone: [facility] 07-23-2024 18:12-0500 Systolic blood pressure 157 mm[Hg] Dr. Arun Gonzales DO Work Phone: [facility] 07-23-2024 16:49-0500 Body mass index (BMI) [Ratio] 32.8 kg/m2 Dr. Arun Gonzales DO Work Phone: [facility] 07-23-2024 16:49-0500 Body weight 109.[address] Arun Gonzales DO Work Phone: [facility] 01-04-2024 14:00-0400 Heart rate 68 /min JENNIFFER VILLASENOR MD [facility] 01-04-2024 14:00-0400 Systolic Blood Pressure Non-Invasive 155 mm[Hg] JENNIFFER VILLASENOR MD [facility] 01-04-2024 03:27-0400 Diastolic Blood Pressure Non-Invasive 91 mm[Hg] JENNIFFER VILLASENOR MD [facility] 01-04-2024 03:27-0400 Heart rate 56 /min JENNIFFER VILLASENOR MD [facility] 01-04-2024 03:27-0400 Reason For Taking VItal Signs JENNIFFER VILLASENOR MD [facility] 01-04-2024 03:27-0400 Respiratory rate 18 /min JENNIFFER VILLASENOR MD [facility] 01-04-2024 03:27-0400 Systolic Blood Pressure Non-Invasive 137 mm[Hg] JENNIFFER VILLASENOR MD [facility] 01-04-2024 00:51-0400 Body temperature 96.98 [degF] JENNIFFER VILLASENOR MD [facility] 01-04-2024 00:51-0400 Diastolic Blood Pressure Non-Invasive 90 mm[Hg] JENNIFFER VILLASENOR MD [facility] 01-04-2024 00:51-0400 Heart rate 70 /min JENNIFFER VILLASENOR MD [facility] 01-04-2024 00:51-0400 Respiratory rate 20 /min JENNIFFER VILLASENOR MD [facility] 01-04-2024 00:51-0400 Systolic Blood Pressure Non-Invasive 135 mm[Hg] JENNIFFER VILLASENOR MD [facility] 10-15-2023 21:58-0400 Body temperature 98 [degF] [facility] 10-15-2023 21:58-0400 Diastolic blood pressure 50 mm[Hg] [facility] 10-15-2023 21:58-0400 Heart rate 69 /min [facility] 10-15-2023 21:58-0400 Respiratory rate 18 /min [facility] 10-15-2023 21:58-0400 SaO2% (BldA) [Mass fraction] 99 % [facility] 10-15-2023 21:58-0400 Systolic blood pressure 119 mm[Hg] [facility] 10-15-2023 18:29-0400 Body height 182.88 cm [facility] 10-15-2023 18:29-0400 Body mass index (BMI) [Ratio] 33.7 kg/m2 [facility] 10-15-2023 18:29-0400 Body weight 112.94 kg [facility] Encounters Encounter Date Encounter Type Care Provider Facility Start: 02-04-[address] [facility] Facility:[facility] Start: 02-02-[address] Arun Gonzales DO Work Phone: -[facility] Start: 02-02-2025 Non-patient / Non-visit Danny HAIDER -[facility] Start: 02-01-2025 Patient encounter procedure Danny HAIDER -Pulmonary Services/Neurology Work Phone: Start: 02-01-[facility] Start: 01-31-2025 Patient encounter procedure Danny HAIDER -Laboratory Work Phone: Start: 01-31-2025 [facility] Start: 01-18-2025 End: 01-18-2025 Patient encounter procedure Danny HAIDER -[facility] Work Phone: Start: 01-18-2025 End: 01-18-[address] Arun Gonzales DO Work Phone: -[facility] Start: 01-10-2025 End: 01-10-2025 Emergency department patient visit Dr. Arun Gonzales DO Work Phone: -Emergency Department Work Phone: Start: 11-24-2024 End: 11-24-[address] Arun Gonzales DO Work Phone: [facility] Work Phone: Start: 11-24-2024 End: 11-24-2024 Patient encounter procedure Danny HAIDER -Sleep Lab Work Phone: Start: 11-24-2024 End: 11-24-2024 Patient encounter procedure Danny HAIDER -[facility] Work Phone: Start: 11-24-2024 End: 11-24-[address] Arun Gonzales DO Work Phone: [facility] Work Phone: Start: 11-24-2024 End: 11-24-2024 ambulatory Danny Walter Facility:[facility] Start: 11-10-2024 End: 11-10-2024 Patient encounter procedure Hina HAIDER -[facility] Work Phone: Start: 11-10-2024 End: 11-10-[address] Arnu Gonzales DO Work Phone: [facility] Work Phone: Start: 11-10-2024 End: 11-10-2024 ambulatory Hina Sampson Facility:[facility] Start: 11-03-2024 End: 11-03-2024 Patient encounter procedure Danny HAIDER -[facility] Work Phone: Start: 11-03-2024 End: 11-03-2024 ambulatory Arun Gonzales Facility:[facility] Start: 08-04-2024 End: 08-04-2024 Patient encounter procedure Hina HAIDER -[facility] Work Phone: Start: 08-04-2024 End: 08-04-2024 ambulatory Arun Gonzales Facility:[facility] Start: 08-04-2024 End: 08-04-2024 ambulatory Hina Sampson Facility:[facility] Start: 07-23-2024 End: 07-23-2024 Emergency department patient visit Dr. Gm Maddox DO -Emergency Department Work Phone: Start: 07-01-2024 End: 07-01-2024 ambulatory Hina Sampson Facility:[facility] Start: 06-09-2024 End: 06-09-2024 ambulatory Arun Gonzales Facility:[facility] Start: 06-09-2024 End: 06-09-2024 ambulatory Arun Gonzales Facility:[facility] Start: 06-04-2024 End: 06-04-2024 ambulatory Hina Sampson Facility:[facility] Start: 05-28-2024 ambulatory Hina Sampson Facili ty:[facility] Start: 05-28-2024 End: 05-28-2024 ambulatory Hina Sampson Facility:[facility] Start: 04-30-2024 End: 04-30-2024 ambulatory Hina Katov Facility:[facility] Start: 04-30-2024 End: 04-30-2024 ambulatory Hina Sampson Facility:[facility] Start: 04-29-2024 End: 04-29-2024 ambulatory Miryam Ohara Facility:[facility] Start: 04-14-2024 End: 04-14-2024 ambulatory Hina Adrián Facility:[facility] Start: 03-24-2024 End: 03-24-2024 ambulatory No Primary Care Physician Facility:[facility] Start: 03-09-2024 ambulatory Rodrigo García Facility :[facility] Start: 03-09-2024 End: 03-09-2024 ambulatory Rodrigo García Facility:[facility] Start: 03-02-2024 End: 03-02-2024 ambulatory Sari HAIDER Facility:[facility] Start: 02-18-2024 ambulatory Rodrigo García Facility :[facility] Start: 02-17-2024 End: 02-18-2024 ambulatory Sumeet Bearden Facility:[facility] Start: 02-15-2024 End: 02-15-2024 Emergency department patient visit Arun Gonzales Facility:[facility] Start: 02-12-2024 End: 02-12-2024 ambulatory Hina Adrián Facility:[facility] Start: 02-03-2024 ambulatory Hina Sampson Facili ty:[facility] Start: 02-03-2024 End: 02-03-2024 ambulatory Hina Adrián Facility:[facility] Start: 01-04-2024 End: 01-04-2024 Emergency department patient visit JENNIFFER VILLASENOR MD [facility] Start: 10-15-2023 End: 10-15-2023 Emergency department patient visit [facility]-Emergency Department Work Phone: Procedures Date Procedure Procedure Detail Performing Clinician Start: 01-31-[address] Arun Gonzales DO Work Phone: Comment on above: ACTH reference interval for samples dixie ected between 7 and10 AM.Performed at: [facility] [id number] Director: Popeye Joseph PhD, Phone: [phone] Start: 01-31-[address] Arun [...] Work Phone: Comment on above: Performed at: [employer] [id number] [place], [place] [id number] Director: Popeye Joseph PhD, Phone: [phone] Start: 08-04-[address] 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 Arun monte DO Work [...] Care Activity Detail Author Start: 01-31-2025 Procedure [facility] Start: 01-10-2025 [facility] Start: 01-10-2025 [facility] Start: 11-24-2024 Polysomnography [facility] Start: 08-04-2024 Patient referral [facility] Work Phone: Start: 07-23-2024 [facility] Start: 10-15-[address] [facility] metabo lic 1999 panel - Serum or Plasma [facility] metabo lic 1999 panel - Serum or Plasma [facility] Cortisol [Mass/volum e] in Serum or Plasma [facility] Patient Education [facility] Work Phone: Patient referral [facility] Work Phone: Thyroid stimulating hormone measurement [facility] Immunizations Immunization Date Immunization Notes Care Provider [facility] influenza, injectabl e, quadrivalent, preservative free Dr. Arun Gonzales DO Work Phone: [facility] 08-20-2019 pneumococcal polysaccharide vaccine, [address] Arun Gonzales DO Work Phone: [facility] Payers Date Payer Category Payer Self-pay [id number] 2024 Unknown [id number] 2013 Unknown [employer] [id number] 1992 Unknown [id number] 2.16.8 40.1.707944.3.579.2.627 Unknown OB COMP MANAGEMENT [id number] Unknown [id number] 2.16.8 40.1.641759.3.579.2.462 Unknown [id number] 2.16.8 40.1.812894.3.579.2.462 Unknown [id number] 2.16.8 40.1.096051.3.579.2.462 Unknown [id number] 2.16.8 40.1.002940.3.579.2.462 Unknown [id number] 2.16.8 40.1.937746.3.579.2.462 Unknown [id number] 2.16.8 40.1.618334.3.579.2.462 Unknown [id number] 2.16.8 40.1.218097.3.579.2.462 Unknown [id number] 2.16.8 40.1.616598.3.579.2.462 Unknown [id number] 2.16.8 40.1.940512.3.579.2.462 Unknown [id number] 2.16.8 40.1.839729.3.579.2.462 Unknown [id number] 2.16.8 40.1.259928.3.579.2.462 Unknown [id number] 2.16.8 40.1.050955.3.579.2.462 Unknown [id number] 2.16.8 40.1.769190.3.579.2.462 Unknown [id number] 2.16.8 40.1.774368.3.579.2.462 Unknown [id number] 2.16.8 40.1.115075.3.579.2.462 Unknown [id number] 2.16.8 40.1.195602.3.579.2.462 Unknown [id number] 2.16.8 40.1.447925.3.579.2.462 Unknown [id number] 2.16.8 40.1.897004.3.579.2.462 Unknown [id number] 2.16.8 40.1.770307.3.579.2.462 Unknown [id number] 2.16.8 40.1.695591.3.579.2.462 Unknown [id number] 2.16.8 40.1.188499.3.579.2.462 Unknown [id number] 2.16.8 40.1.521614.3.579.2.462 Unknown [id number] 2.16.8 40.1.906365.3.579.2.462 Unknown [id number] 2.16.8 40.1.313405.3.579.2.462 Unknown [id number] 2.16.8 40.1.378117.3.579.2.462 Unknown [id number] 2.16.8 40.1.908435.3.579.2.462 Unknown [id number] 2.16.8 40.1.992404.3.579.2.462 Unknown [id number] 2.16.8 40.1.164033.3.579.2.462 Unknown [id number] 2.16.8 40.1.056651.3.579.2.462 Unknown [id number] 2.16.8 40.1.250417.3.579.2.462 Unknown [id number] 2.16.8 40.1.551641.3.579.2.462 Unknown [id number] 2.16.8 40.1.255023.3.579.2.462 Unknown [id number] 2.16.8 40.1.747987.3.579.2.462 Unknown [id number] 2.16.8 40.1.758751.3.579.2.462 Unknown [id number] 2.16.8 40.1.451326.3.579.2.462 Social History Date Type Detail Facility Start: 10-15-2023 Tobacco smoking stat [facility] Unknown if ever smoked [facility] Start: 1990 Sex Assigned At Male [facility] Tobacco smoking status No Smokin g Status Entered [facility] Start: 07-23-2024 End: 01-10-2025 Tobacco smoking status KYIS Current Light tobacco smoker [facility] Start: 02-03-2024 Tobacco Use Tobacco Use [facility] Medical Equipment Procedure Code Equipment Code Equipment Original Text Equipment Identifier Dates Total cholecystectomy with exploration of common bile duct CLIP,HEMOLOCK MED WECK FDA Start: 02-17-2024 Total cholecystectomy with exploration of common bile duct Ligation clip, synthetic polymer, non-bioabsorbable [id number] FDA Start: 02-17-2024 Total cholecystectomy with exploration of common bile duct CLIP,HEMOLOCK MED WECK FDA Start: 02-17-2024 Total cholecystectomy with exploration of common bile duct CLIP,HEMOLOCK MED WECK FDA Start: 02-17-2024 Total cholecystectomy with exploration of common bile duct CLIP,HEMOLOCK MED WECK FDA Start: 02-17-2024 Total cholecystectomy with exploration of common bile duct CLIP,ESDRAS Liquid Bronze GRAEME FDA Start: 02-17-2024 Total cholecystectomy with exploration of common bile duct CLIP,ESDRAS BEDOLLA FDA Start: 02-17-2024 Total cholecystectomy with exploration of common bile duct CLIP,ESDRAS Liquid Bronze GRAEME FDA Start: 02-17-2024 Functional Status Date Assessment Result Facility 01-04-2024 Functional Status Independent [facility] 01-04-2024 Functional Status Standard Safet y ID band on, Allergy Band on, Call device within reach, Bed in low position, Wheels locked, Upper/Half-Length side-rails up, Safety level maintained [facility] Mental Status Date Assessment Result Facility 01-10-2025 Cognitive function Awake;Alert;A ppropriate;Follo ws Commands [facility] Work Phone: 01-04-2024 Mental Status Orientation Oriented x 4 [facility] 01-04-2024 Mental Status [facility] Clinical Notes 01-04-2024 to 01-10-2025 Note Date & Type Note Facility 01-10-2025 Radiology Diagnostic study note [facility] Imaging Services [address] [place] [address] Chest PA and Lateral MR#: [id number] Acct: [id number] Name: FRITZ MORSE Rep #: [id number] : 1990 M 34 From: Manuel Peña MD PCP: Dr. Arun Gonzales DO Status: RE G ER Study:Chest PA and Lateral Date of Exam: 01/10/25 Exam# [id number] Ordering Dr: Luis Angel Win DO PROCEDURE: CHEST PA AND LATERAL 01/10/2025 REASON FOR EXAM: PALPITATIONS TECHNIQUE: CHEST PA AND LATERAL COMPARISON: None. FINDINGS: Lungs/Pleura: Clear. Heart/Mediastinum: Normal in size. Bones/Soft tissues: Mild degenerative changes of the spine. RAD/Chest PA and Lateral IMPRESSION: No acute cardiopulmonary disease. Reading Location: [facility] CC: Dr. Arun Gonzales, DO; Dr. Luis Angel Win, DO ~ Tape Sewer: Signed [facility] 01-10-2025 Hospital Discharg e instructions Additional Instructions Your blood sugar was slightly elevated on lab results. Continue to monitor your blood sugars. Try to eat a low-carb, low sugar diet. Follow-up with your primary care physician in 5 to 7 days for further evaluation. [facility] Work Phone: 11-03-2024 Evaluation note Diagnosis Onset Date Resolution Hypersomnia acute November 03, 2024 11:24am Hypertension chronic November 03 11:24am Elevated LFTs acute November 10, 2 025 10:34am Gastritis acute November 10, 2024 10:34am Hypertension chronic November 24 10:54am [facility] Work Phone: 1(863) 810-842305-07-2025 Evaluation note* Diagnosis Onset Date Resolution Status [...] Hypertension chronic January 18, 2 025 12:51pm [facility] Work Phone: 1(441) 406-260102-05-2025 Evaluation note* Diagnosis Onset Date Resolution Status Admit Date Bloody stool acute July 9:54am Elevated LFTs acute July h2024 9:54am Rash acute August 04, 2024 9:54am Hypersomnia acute November 03, 2024 11:24am Hypertension chronic November 03 11:24am Elevated LFTs acute November 10, 2 025 10:34am [place] [address] [facility] Work Phone: 1(975) 367-375602-05-2025 Evaluation note* Diagnosis Onset Date Resolution Status Admit Date Bloody stool acute July 9:54am Elevated LFTs acute July h2024 9:54am Rash acute August 04, 2024 9:54am Hypersomnia acute November 03, 2024 11:24am Hypertension chronic November 03 11:24am Elevated LFTs acute November 10, 2 025 10:34am Gastritis acute November 10, 2024 10:34am Hypertension chronic November 24 10:54am [facility] Work Phone: 1(782) 451-481002-05-2025 Evaluation note* Diagnosis Onset Date Resolution Status Admit Date Bloody stool acute July 9:54am Elevated LFTs acute July 9:54am Rash acute August 04, 2024 9:54am Hypersomnia acute November 03, 2024 11:24am Hypertension chronic November 03 11:24am Elevated LFTs acute November 10 025 10:34am Gastritis acute November 10, 2024 10:34am [facility] Work Phone: 1(367) 282-978009-10-2024 [facility]08-20-2024 [facility]08-06-2024 [facility] 01-04-2024 Hospital Discharge instructions Patient Education 01/04/2024 [...] foods again, start with small amounts of rmgm-dz-wonbov, low- fat foods. These include apple sauce, [...] increase stomach acid. Don't use aspirin or fkhh-qqs-hxvxugz pain and fever medicines, if possible. This includes nonsteroidal anti-inflammatory drugs (NSAIDs). Lose excess weight. Finish eating at least 2 hours before you go to bed or lie down. Raise the head of your bed. [phone] [employer]. [address] [place] [address]. All rights reserved. This information is not intended as a substitute for professional medical care. Always follow yourhealthcare professional's instructions. Follow Up Care 01/04/2024 00:38:49 With:Follow up with primary care provider Address:Unknown When:2-4 days With:JANINE DEL VALLE MD Address: [address] [place] [address] [place] [address]- When:2-4 days With:POPEYE HERRERA MD Address: [address] [place] [address] [address] [place] [phone] When:2-4 days [facility] 07-07-2024 Note Discharge Instructions Thank you for allowing [facility] to assist you with your healthcare needs. [...] JANINE DEL VALLE MD When:Within 2-4 days Where:[address] [place] [address] [place] [address]- Follow Up with POPEYE HERRERA MD When:Within 2-4 days [facility] [facility] [address] [place] [phone] Allergies NKA Medications Please ask your primary [...] foods again, start with small amounts of dgbj-sb-cmsgss, low- fat foods. These include apple sauce, [...] increase stomach acid. Don't use aspirin or wcjk-pss-jnwamkl pain and fever medicines, if possible. This includes nonsteroidal anti-inflammatory drugs (NSAIDs). Lose excess weight. Finish eating at least 2 hours before you go to bed or lie down. Raise the head of your bed. [phone] [employer]. [address] [place] [address]. All rights reserved. This information is not intended as a substitute for professional medical care. Always follow yourhealthcare professional's instructions. Additional Information VACCINATE! IT SAVES LIVES! Members of the community who have not yet received the COVID-19 vaccine and would like to receive it can visit one of [facility] vaccine clinics. There are many vaccine clinic locations within the [facility]. For locations and available times, please visit www.gettheshot.coronavirus.[place].gov/. It is important to note that some COVID mobile vaccine clinics are held outdoors and may be canceled in rainy or stormy conditions. To learn more about pediatric vaccinations (ages 5-11), we invite you to visit the [facility] webpage. https://www.[email or web address].org/pages/[email or web address]-Tsqdq-Rucxjriozlt-Defgueucyp-Omqle-Qre stions.htmlTo learn more about the COVID-19 vaccine, we invite you to visit the CDC website for a list of frequently asked questions. https://www.cdc.gov/coronavirus/2019-ncov/vaccines/faq.html [facility] Patient Portal Access Instructions: Stay connected with your healthcare team and access your personal medical information anytime with the [employer] Patient Portal. If you would like a full copy of your medical records please contact the [facility] Medical Records Department Friday through Friday between 8a.m. and 4:30p.m. Please follow the directions below to access the portal: 1.Access the email account you provided upon registration to the [facility].2.Look for an invitation email from [facility].3.Open the email and access the invitation link: Accept Invitation to [employer].Fill in the required ladd to create your account. Sign into [email or web address] with your username and password that you [...] you will allow to register on the [employer] Patient Portal for access to your information. You can also access the [employer] Patient Portal on the [employer] munira. Simply click on Health Records under [employer] and then click on the [employer] logo. HOW TO SAFELY DISPOSE OF PRESCRIPTION [...] Call your local pharmacy or go to http://bit.[employer]/2H4Ve5w to find one close to you.3.Make use of household items: Use cat litter or old coffee grounds to dispose medications if other options arenot available. Mix your drugs with these household products, seal them in an airtight container andthrow it into the garbage. Call [facility]: [phone] to be sure your drugs can be [...] aware that I should contact my doctor. 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 Signature: Date/Time: Relationship to Patient: Witness Name/Signature: Date/Time: [facility] Boogiebertha [id number] Note ORIGINAL EXAMINATION: CT OF THE ABDOMEN [...] by: Ari Moreno MD Preliminary Report By: rAi Moreno MD Electronically signed By Ari Moreno MD Dictated Date: 01/04/2024 1:47:34 AM Prelim Date: 01/04/2024 1:52:07 AM Sign Date: 01/04/2024 1:52:07 AM Ordering Provider[facility] No data available for this section [facility] Evaluation noteNo assessment information available [facility] Work Phone: Hospital Discharge instructionsAmbulatory Orders* Endocrinology Location: None [facility] Work Phone: Reason for referral (narrative)No reason for referral [facility] Work Phone: Chief Complaint and Reason for [...] m Palpitations January 10, 2025 2:48 pm [facility] f/u January 18, 2025 12:5 1pm Chief Complaint Admit Date HR and BP high portal request November 03, 2 025 11:24am 3 M FU November 10, 2024 10:34 am 2 week f/u November 24, 2024 10:54 am fatigue and HTN November 24, 2024 7:53p m Palpitations January 10, 2025 2:48 pm [facility] f/u January 18, 2025 12:5 [...] No October 15, 2023 8:08pm Power of Torpedo Shooter No October 14 8:08pm Advance Directive Response Recorded Date/ Time Living Will No March 04 11:14am Do you have a Healthcare Power of Torpedo Shooter? No March 04, 2024 11:14am Living Will No July 23 6:34pm Do you have a Healthcare Power of Torpedo Shooter? No July 23, 2024 6:34pm Advance Directive Response Recorded Date/ Time Living Will No March 04 11:14am Do you have a Healthcare Power of Torpedo Shooter? No March 04, 2024 11:14am Advance Directive Response Recorded Date/ Time Do you have a Healthcare Power of Torpedo Shooter? No January 10, 2025 3:49pm Summary Purpose [...] 2024 End: August 04, 2024 THANG العراقي Attending Provider Active Start: August [...] Inactive Member Role/Relationship Status Dates Dr. Arun Gonzaels , Primary Care Provider Active Start: January [...] Care Provider Active Start: February 01, 2025 Danny Walter PA, PA Attending Provider [...] section and content) DATE CREATED AUTHOR 01/17/2024 [facility] DATE CREATED AUTHOR AUTHOR'S ORGANIZ ATION 02/01/2025 [facility] FOR RECORDS PERTAINING TO PATIENTS WHO ARE [...] BE BASED ON THE PRIMARY CLINICAL RECORDS. [facility] [facility]. provides no warranty or guarantee of the accuracy or completeness of information in this document.
== END | disposition home or self-care (01) ==
LOC: CVS 06:54
PROVIDERS: PCP Family Medicine; Referring Provider Physician Assistant; Visit Provider Physician Assistant
DX: R00.2 Palpitations (principal)
CPT/HCPCS: 93306

== ENCOUNTER → 2025-02-10 | Outpatient (CLI) | payer BC, SELFPAY ==
[2025-02-10 11:34] LABS: Hematocrit 43.8 % (40-54); Hemoglobin 15.5 g/dL (13.0-16.5); Immature Granulocytes Count 0.010 X10^3/uL (0.0-0.0); Mean Corp Hgb Conc 35.4 g/dL (32-36); Mean Corpuscular Volume 86.9 fL (80-94); Mean Platelet Vol. 9.3 fl (6.2-12.0); NRBC Flagged by Analyzer 0 % (0-5); Platelet Count 240 K/mm3 (150-450); RBC Distribution Width CV 12.1 % (11.6-14.6); RBC Distribution Width SD 38.7 fl (35.1-43.9); Red Blood Count 5.04 M/mm3 (4.6-6.2); White Blood Count 6.1 K/mm3 (4.4-11.0)
[2025-02-10 12:06] LABS: AST(SGOT) 91 U/L (<=37); Alanine Aminotransfer ALT/SGPT 188 U/L (<=46); Albumin, Serum 4.3 g/dL (3.5-5.0); Alkaline Phosphatase 154 U/L (40-129); Anion Gap 12 (5-15); BUN 14 mg/dL (4-19); BUN/Creat Ratio 13.1 RATIO (10-20); Calcium,Total 9.6 mg/dL (7.6-11.0); Carbon Dioxide 20.8 mmol/L (21.0-32.0); Chloride 106 mmol/L (98-108); Globulin 3.2 g/dL (2.2-4.2); Glucose 139 mg/dL (70-99); Potassium 4.5 mmol/L (3.3-5.1)
== END | disposition home or self-care (01) ==
LOC: LAB 10:59
PROVIDERS: PCP Physician Assistant; Referring Provider Student in an Organized Health Care Education/Training Program; Visit Provider Student in an Organized Health Care Education/Training Program
DX: R79.89 Other specified abnormal findings of blood chemistry (principal)
CPT/HCPCS: 36415; 80053; 85025

== ENCOUNTER → 2025-04-06 | Outpatient (CLI) | payer BC, SELFPAY ==
[2025-04-06 10:41] LABS: Hematocrit 44.2 % (40-54); Hemoglobin 15.4 g/dL (13.0-16.5); Immature Granulocytes Count 0.020 X10^3/uL (0.0-0.0); Mean Corp Hgb Conc 34.8 g/dL (32-36); Mean Corpuscular Volume 87.9 fL (80-94); Mean Platelet Vol. 9.5 fl (6.2-12.0); NRBC Flagged by Analyzer 0 % (0-5); Platelet Count 281 K/mm3 (150-450); RBC Distribution Width CV 12.3 % (11.6-14.6); RBC Distribution Width SD 39.4 fl (35.1-43.9); Red Blood Count 5.03 M/mm3 (4.6-6.2); White Blood Count 7.3 K/mm3 (4.4-11.0)
[2025-04-06 10:52] LABS: Prothrombin Time (Protime)PT. 12.5 SECONDS (11.7-14.9)
[2025-04-06 11:22] LABS: Mucous, Urine 0 SEEN /hpf (<or=2+); Red Blood Cells-Urine 0 SEEN /hpf (0-5)
[2025-04-06 11:32] LABS: AST(SGOT) 42 U/L (<=37); Alanine Aminotransfer ALT/SGPT 82 U/L (<=46); Albumin, Serum 4.4 g/dL (3.5-5.0); Alkaline Phosphatase 118 U/L (40-129); Anion Gap 12 (5-15); BUN 16 mg/dL (4-19); BUN/Creat Ratio 13.2 RATIO (10-20); Calcium,Total 9.8 mg/dL (7.6-11.0); Carbon Dioxide 22.4 mmol/L (21.0-32.0); Chloride 105 mmol/L (98-108); Ferritin 451 ng/mL (37-417); Globulin 3.2 g/dL (2.2-4.2); Glucose 107 mg/dL (70-99); Iron 129 ug/dL (65-175); Iron Binding Capacity,Total 278 ug/dL (250-450); Iron Binding Capacity,Unsat 149 ug/dL (228-428); Potassium 4.2 mmol/L (3.3-5.1)
[2025-04-06 11:34] LABS: T4 Total, Thyroxin 8.5 ug/dL (4.5-12.1)
[2025-04-06 11:39] LABS: Color, Urine Yellow (Yellow); Glucose, Dipstick Normal (Normal); Ketone-Dipstick Negative (Negative); Leukocyte Esterase-Dipstick 25 /ul (Negative); Nitrite-Dipstick Negative (Negative); Occult Blood-Urine 10 /ul (Negative); Protein-Dipstick 30 mg/dl (Negative); Specific Gravity, Urine 1.025 (1.002-1.030); Urine Bilirubin Dipstick Negative (Negative)
[2025-04-06 11:58] LABS: Squamous Epithelial Cells - UA 0-5 SEEN /hpf (0-5)
[2025-04-06 11:59] LABS: Calcium Oxalate Crystals Ur RARE /hpf (<or=2+)
[2025-04-06 12:06] LABS: Creatinine, Urine (random) 343.00 mg/dL (39.00-259.00); Protein, Urine (Random) 23.8 mg/dL (0.0-12.0); Protein:Creat Ratio 69 mg/g CRE (0-200)
[2025-04-06 12:21] LABS: Cholesterol 233 mg/dL (<=200); Low Density Lipoprotein Calc. 131 mg/dL; Triglycerides 312 mg/dL; Very Low Density Lipoprotein 62 mg/dL (5-40); cholesterol:hdl ratio screen 5.87
[2025-04-08 15:09] LABS: Albumin 3.8 g/dL (2.9-4.4); Alkaline Phosphatase, Serum 125 IU/L (47-123); GGTP 84 IU/L (0-65); Gamma Globulin 1.1 g/dL (0.4-1.8); Immunoglobulin A 484 mg/dL (90-386); Immunoglobulin G 1177 mg/dL (603-1613); Immunoglobulin M 27 mg/dL (20-172); PROEL- TOTAL PROTEIN 7.3 g/dL (6.0-8.5)
== END | disposition home or self-care (01) ==
PROVIDERS: Internal Medicine; PCP Physician Assistant; Referring Provider Internal Medicine Nephrology; Visit Provider Internal Medicine Nephrology
DX: E06.3 Autoimmune thyroiditis (principal); I12.9 Hypertensive chronic kidney disease with stage 1 through stage 4 chronic kidney disease, or unspecified chronic kidney disease; N18.2 Chronic kidney disease, stage 2 (mild); Z90.5 Acquired absence of kidney; R79.89 Other specified abnormal findings of blood chemistry; K76.0 Fatty (change of) liver, not elsewhere classified; K75.3 Granulomatous hepatitis, not elsewhere classified
CPT/HCPCS: 36415; 80053; 80061; 81001; 82570; 82728; 82784; 82977; 83540; 83550; 84075; 84080; 84156; 84165; 84436; 84439; 84443; 85025; 85610; 86334

== ENCOUNTER 2025-04-21 19:26 | Emergency (ER) | payer BC, SELFPAY ==
[2025-04-21 19:26] VITALS: BP 135/92; PULSE 92; RESP 22; TEMP 36.8; O2SAT 100; BMI 33.3
[2025-04-21 20:35] VITALS: BP 136/79; PULSE 56; RESP 18; TEMP 36.3; O2SAT 95
== END 2025-04-21 20:35 | disposition home or self-care (01) ==
PROVIDERS: Emergency Provider Emergency Medicine; PCP Physician Assistant; Visit Provider Emergency Medicine
DX: R20.0 Anesthesia of skin (principal); R06.02 Shortness of breath; Z13.9 Encounter for screening, unspecified; R42 Dizziness and giddiness; I10 Essential (primary) hypertension; E06.3 Autoimmune thyroiditis; Z79.890 Hormone replacement therapy; F17.290 Nicotine dependence, other tobacco product, uncomplicated
CPT/HCPCS: 99282

== ENCOUNTER → 2025-06-10 | Outpatient (CLI) | payer BC, SELFPAY ==
--- NOTE | 2025-06-10 09:55 | US_ITS ---
PROCEDURE: ABD LIMITED W/ ELASTOGRAPHY REASON FOR EXAM: LIVER FIBROSIS, HEPATITIS COMPARISON: None. TECHNIQUE: Procedure Code: USABDLELPARO Modality: US Procedure: ABD LIMITED W/ ELASTOGRAPHY Right upper quadrant abdominal ultrasound. [facility] shear wave elastography for non-invasive assessment of liver tissue stiffness. [facility] EPIQ Elite. FINDINGS: LIVER: Size: Enlarged (hepatomegaly) Length: 17.1 cm Echotexture: Diffusely echogenic suggesting fatty infiltration Contour: Normal Lesions: None identified Elastography: EQI Med: 5.6 kPa EQI Med Brandon: 1.35 m/s IQR/Med: 11.3 %* GALLBLADDER: Surgically absent. COMMON BILE DUCT: Normal measuring 2.5 mm . PANCREAS: Visualized portions are unremarkable. The distal body and tail are obscured by bowel gas. Visualized portions of the right kidney are unremarkable. No right upper quadrant ascites. The spleen is not enlarged. It measures 12.5 cm 5.2 cm 5.1 cm. US/ABD Limited w/ Elastography IMPRESSION: NO TO MILD HEPATIC FIBROSIS Reference Values: SRU <1.37 m/s (5.7kPa): No to mild fibrosis 1.37 m/s - 2.2 m/s: Moderate to severe fibrosis >2.2 m/s (15kPa): Significant fibrosis / cirrhosis METAVIR Score F2 or higher: 1.34 m/s (5.7kPa) F3 or higher: 1.55 m/s (7.3kPa) F4: 1.80 m/s (10kPa) * If the IQR/Med is >30%, the variance in the measurements is a large and the a ccuracy of the measurement may be in question. Reading Location: [place] [address]
[2025-06-10 12:01] LABS: T4 Total, Thyroxin 8.2 ug/dL (4.5-12.1)
== END | disposition home or self-care (01) ==
PROVIDERS: PCP Physician Assistant; Referring Provider Internal Medicine; Visit Provider Internal Medicine
DX: R79.89 Other specified abnormal findings of blood chemistry (principal); E03.9 Hypothyroidism, unspecified; E06.3 Autoimmune thyroiditis; I10 Essential (primary) hypertension
CPT/HCPCS: 36415; 76705; 76981; 84436; 84439; 84443